=== PATIENT | female | born 1965 | race Caucasian/White ===

== ENCOUNTER 2016-09-10 12:04 | Emergency (ER) | payer MEDICAID ==
[2016-09-10 12:05] VITALS: BMI 36.4
[2016-09-10 12:16] VITALS: TEMP 97.5
--- NOTE | 2016-09-10 12:44 | C.PDOC ---
History Of Present Illness 50 y/o female presents to the ED with complaints of SOB for 2 days. Patient reports shortness of breath even at rest and worse with exacerbation. Denies chest pain, headache, dizziness, weakness, numbness, fever or any other complaints. Patient has significant PMH CAD, CABG, MIx5, DM, HTN, and anxiety. Wells Criteria for PE - Wells Criteria for Pulmonary Embolism Clinical Signs and Symptoms of DVT: No P.E is #1 Diagnosis, or Equally Likely: No Heart Rate >100: No Immobilization at least 3 days;Surgery previous 4 weeks: No Previous, objectively diagnosed PE or DVT: No Hemoptysis: No Malignancy w/treatment within 6 months, or palliative: No Total Score: 0 Time Seen by Provider: 09/10/16 12:25 Chief Complaint (Nursing): Shortness Of Breath History Per: Patient History/Exam Limitations: no limitations Onset/Duration Of Symptoms: Days Current Symptoms Are (Timing): Still Present Severity: Moderate Associated Symptoms: denies: Fever, Chills, Chest Pain Recent travel outside of the [place]: No Past Medical History Reviewed: Historical Data, Nursing Documentation, Vital Signs Vital Signs: Last Vital Signs Temp 97.5 F L 09/10/16 15:14 Pulse 55 L 09/10/16 15:14 Resp 23 09/10/16 15:14 BP 120/58 L 09/10/16 15:14 Pulse Ox 99 09/10/16 15:14 - Medical History PMH: Anxiety, Asthma, CAD, Cardia Arrhythmia, Depression, Diabetes, Gastritis, Gastrointestinal Ulcer, Gall Bladder Disease, HTN, Hypercholesterolemia, Sleep Apnea Surgical History: CABG (september 2008), Cholecystectomy, Coronary Stent (9 stents) - [facility] Procedures APPLICATION OF SPLINT (06/09/14) CORONAR ARTERIOGR-2 CATH (12/14/14) DILATION OF 1 COR ART WITH DRUG-ELUT INTRALUM, PERC APPROACH (05/26/15) DILATION OF CORONARY ARTERY, ONE SITE, PERCUTANEOUS APPROACH (03/04/16) FLUOROSCOPY OF LEFT HEART USING LOW OSMOLAR CONTRAST (05/26/15) FLUOROSCOPY OF SINGLE CORONARY ARTERY USING L OSM CONTRAST (05/26/15) INFLUENZA VACCINATION (05/08/14) LEFT HEART CARDIAC CATH (12/14/14) LT HEART ANGIOCARDIOGRAM (12/14/14) MEASURE OF CARDIAC SAMPL & PRESSURE, L HEART, PERC APPROACH (03/04/16) OTHER ENDOSCOPY OF SM INTEST (01/21/14) PLAIN RADIOGRAPHY OF LEFT HEART USING OTHER CONTRAST (03/04/16) PLAIN RADIOGRAPHY OF MULT COR ART USING OTH CONTRAST (03/04/16) TETANUS TOXOID ADMINIST (06/09/14) TRANSFUSE NONAUT RED BLOOD CELLS IN PERIPH VEIN, PERC (03/30/16) VACCINATION NEC (05/08/14) Family History: States: Unknown Family Hx - Social History Hx Tobacco Use: No Hx Alcohol Use: No Hx Substance Use: Yes (MARIJUANA) - Immunization History Hx Tetanus Toxoid Vaccination: Yes (06/09/14) Hx Influenza Vaccination: Yes Hx Pneumococcal Vaccination: Yes Review Of Systems Constitutional: Negative for: Fever, Chills Cardiovascular: Negative for: Chest Pain, Palpitations Respiratory: Positive for: Shortness of Breath. Negative for: Cough Gastrointestinal: Negative for: Vomiting, Abdominal Pain Musculoskeletal: Negative for: Neck Pain, Back Pain Neurological: Negative for: Weakness, Numbness, Headache, Dizziness Physical Exam - Physical Exam Appears: Non-toxic, No Acute Distress, Other (obese) Skin: Warm, Dry, No Rash Head: Atraumatic, Normacephalic Eye(s): bilateral: Normal Inspection, EOMI Nose: Normal Neck: Normal ROM, Supple Chest: Symmetrical Cardiovascular: Rhythm Regular, No Murmur Respiratory: Normal Breath Sounds, No Rales, No Rhonchi, No Wheezing, Other ( tachypnea) Extremity: Bilateral: Atraumatic, No Pedal Edema, Normal Color And Temperature, Normal ROM Neurological/Psych: Oriented x3, Normal Speech Gait: Steady ED Course And Treatment - Laboratory Results Result Diagrams: 09/10/16 12:59 09/10/16 12:59 Lab Interpretation: No Acute Changes ECG: Interpreted By Me, Viewed By Me (and DR RODAS) ECG Rhythm: Sinus Rhythm ECG Interpretation: No Acute Changes Interpretation Of ECG: normal axis, nonspecific ST/T wave abnormality; no change from 03/28/16 Rate From EC (BPM) O2 Sat by Pulse Oximetry: 100 (on room air) Pulse Ox Interpretation: Normal - Other Rad CXR X-Ray: Viewed By Me, Read By Radiologist Interpretation: Accession No. : [id number]. Patient Name / ID : CHARISSE HWANG / [id number]. Exam Date : 09/10/2016 12:21:27 ( Approved ). Study Comment : Sex / Age : F / 50Y. Creator : Al Broussard MD. Dictator : Al Broussard MD. Order Fulfillment Specialist : Superintendent Of Schools : Al Broussard MD. Approver2 : Report Date : 09/10/2016 13:21:56. My Comment : . HISTORY: sob. COMPARISON: No prior. TECHNIQUE: Chest PA and lateral. FINDINGS: LUNGS: Poor inspiration with low lung volumes, mild crowded bronchovascular markings and mild bibasilar atelectasis. The interstitial markings are also slightly increased and coarsened as well; rule out this concomitant sequela of reactive/inflammatory airway disease or viral illness. With discrete area of linear atelectasis and or scarring right lateral mid lung field. PLEURA: No significant pleural effusion identified. No pneumothorax apparent. CARDIOVASCULAR: Normal. OSSEOUS STRUCTURES: No significant abnormalities. VISUALIZED UPPER ABDOMEN: Normal. OTHER FINDINGS: None. IMPRESSION: Poor inspiration with low lung volumes, mild crowded bronchovascular markings and mild bibasilar atelectasis. The interstitial markings are also slightly increased and coarsened as well; rule out this concomitant sequela of reactive/ inflammatory airway disease or viral illness. Medical Decision Making Medical Decision Making: Plan: * EKG, CXR * labs, UA * IV fluids Progress: Patient assessed and examined. Orders placed in for blood work. Urine collected and sent to lab for analysis. EKG obtained and reviewed, no acute ST-T changes. Patient placed on cardiac cath tech. Oxygen given via nasal cannula. Additional orders placed for duonebs. All labs reviewed including troponin and dimer which were negative, H/H baseline. No signs of DKA. CXR read by radiologist which showed poor inspiration with low lung volumes, mild crowded bronchovascular markings and mild bibasilar atelectasis. The interstitial markings are also slightly increased and coarsened as well; rule out this concomitant sequela of reactive/ inflammatory airway disease or viral illness. I considered the following diagnoses: acute coronary syndrome, pulmonary embolism, lower respiratory infection, pneumothorax, pericarditis, esophagitis/ GERD, zoster and esophageal rupture but found them to be unlikely based on the history, physical exam, and diagnostics. My conclusions regarding the unlikely diagnoses were based on: the absence of significant EKG abnormalities, the lack of suggestive x-ray findings, the absence of significant abnormalities on cardiac monitoring, the absence of asymmetric pulses. Case was also discussed with Dr Rodas who agreed with plan. Upon reevaluation patient was resting comfortably in no acute distress and oxygen saturation was 100% on room air. Patient denies any chest pain. Symptoms likely related to anxiety. I explained all results to patient and provide copy of reports. Patient feels comfortable going home. 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 Return to the emergency department at any time if symptoms persist or worsen. Disposition Counseled Patient/Family Regarding: Studies Performed, Diagnosis, Need For Followup, Rx Given - Disposition Referrals: Leonidas Keith MD [Non-Staff] - Disposition: HOME/ ROUTINE Disposition Time: 15:00 Condition: STABLE Additional Instructions: Follow up with your primary medical doctor Dr keith in 1-3 days for further evaluation. Take medications as prescribed. Return to the emergency department at any time if symptoms persist or worsen. Prescriptions: Prednisone 50 mg PO DAILY #5 tablet Albuterol HFA [Ventolin HFA 90 mcg/actuation (8 g)] 1 puff IH Q4 #1 puff Instructions: Dyspnea (ED) - POA Present On Arrival: None - Clinical Impression Clinical Impression: Dyspnea, Anxiety - PA / REEXAMINER / Resident Statement MD/DO has reviewed & agrees with the documentation as recorded. - Scribe Statement The provider has reviewed the documentation as recorded by the Corey Vera All medical record entries made by the Corey were at my direction and personally dictated by me. I have reviewed the chart and agree that the record accurately reflects my personal performance of the history, physical exam, medical decision making, and the department course for this patient. I have also personally directed, reviewed, and agree with the discharge instructions and disposition. ULISSES Risk Score for UA/NSTEMI - ULISSES Risk Score Age > 64: NO 3 or more CAD Risk Factors: YES Known CAD (Stenosis greater than 50%): YES Aspirin use in past 7 days: NO Severe Angina: NO EKG ST changes greater than 0.5mm: NO Positive Cardiac Marker: NO ULISSES Score: 2 % risk at 14 days of: all cause mortality, new or recurrent OK, or severe recurrent ischemia requiring urgen revascularization: 8%
[2016-09-10 13:11] LABS: WHITE BLOOD COUNT 5.2 K/uL (4.8-10.8)
[2016-09-10 13:16] LABS: BASO % 0.6 % (0.0-2.0); EOS % 0.6 % (0.0-4.0); HEMATOCRIT 30.1 % (34.0-47.0); LYMPH # 1.3 K/uL (1.0-4.3); LYMPH % 24.2 % (20.0-40.0); MEAN CORPUSCULAR HEMOGLOBIN 24.8 pg (27.0-31.0); MEAN CORPUSCULAR HGB CONC 31.7 g/dL (33.0-37.0); MEAN PLATELET VOLUME 9.4 fL (7.2-11.7); MONO # 0.5 K/uL (0.0-0.8); MONO % 9.1 % (0.0-10.0); RED CELL DISTRIBUTION WIDTH 19.7 % (11.5-14.5)
[2016-09-10 13:18] LABS: MEAN CELL VOLUME 78.2 fL (81.0-99.0)
[2016-09-10 13:19] LABS: CHLORIDE 97 mmol/L (98-107); POTASSIUM 3.8 mmol/L (3.6-5.2); SODIUM 137 mmol/L (132-148)
[2016-09-10 13:21] LABS: BILIRUBIN,TOTAL 0.9 mg/dL (0.2-1.3); GFR AFRICAN-AMERICAN > 60
[2016-09-10 13:22] LABS: ALKALINE PHOSPHATASE 67 U/L (38-126); ALT/SGPT 48 U/L (9-52); AST/SGOT 34 U/L (14-36); BLOOD UREA NITROGEN 15 mg/dL (7-17); CALCIUM 8.6 mg/dl (8.6-10.4); CARBON DIOXIDE 21 mmol/L (22-30); GLUCOSE,RANDOM 308 mg/dL (65-105); TOTAL PROTEIN 7.7 g/dL (6.3-8.3)
--- NOTE | 2016-09-10 13:31 | RAD ---
HISTORY: sob COMPARISON: No prior. TECHNIQUE: Chest PA and lateral FINDINGS: LUNGS: Poor inspiration with low lung volumes, mild crowded bronchovascular markings and mild bibasilar atelectasis. The interstitial markings are also slightly increased and coarsened as well; rule out this concomitant sequela of reactive/inflammatory airway disease or viral illness. With discrete area of linear atelectasis and or scarring right lateral mid lung field PLEURA: No significant pleural effusion identified. No pneumothorax apparent. CARDIOVASCULAR: Normal. OSSEOUS STRUCTURES: No significant abnormalities. VISUALIZED UPPER ABDOMEN: Normal. OTHER FINDINGS: None. IMPRESSION: Poor inspiration with low lung volumes, mild crowded bronchovascular markings and mild bibasilar atelectasis. The interstitial markings are also slightly increased and coarsened as well; rule out this concomitant sequela of reactive/inflammatory airway disease or viral illness.
[2016-09-10 13:33] LABS: RBC URINE 13 /hpf (0-3); URINE BACTERIA RARE (<OCC); URINE BILIRUBIN NEGATIVE (NEGATIVE); URINE BLOOD 1+ (NEGATIVE); URINE COLOR Yellow (YELLOW); URINE GLUCOSE (UA) 3+ mg/dL (Normal); URINE KETONE NEGATIVE (NEGATIVE); URINE LEUKOCYTE ESTERASE TRACE Leu/uL (Negative); URINE PROTEIN NEGATIVE (NEGATIVE); URINE UROBILINOGEN NORMAL mg/dL (0.2-1.0); WBC URINE 6 /hpf (0-5)
[2016-09-10 14:09] LABS: INR 1.1; PARTIAL THROMBOPLASTIN TIME 26 SECONDS (21-34)
[2016-09-10] MEDS ORDERED: Albuterol-Ipratrop 3 mg / 0.5 (3 ml) UD IH SCH (14:30)
[2016-09-10] MEDS ORDERED: Albuterol-Ipratrop 3 mg / 0.5 (3 ml) UD ONE (14:38)
[2016-09-10 15:16] VITALS: BP 120/58; PULSE 55; RESP 23
[2016-09-10 15:40] VITALS: O2SAT 100
== END 2016-09-10 15:15 | disposition home or self-care (01) ==
LOC: C.ER 12:04
DX: F41.9 Anxiety disorder, unspecified (principal); R06.00 Dyspnea, unspecified

== ENCOUNTER 2016-11-03 10:11 | Inpatient (IN) | payer MEDICAID ==
[2016-11-03 10:11] VITALS: BMI 36.4
--- NOTE | 2016-11-03 10:37 | C.PDOC ---
History Of Present Illness Patient BIBA for evaluation of feeling light-headed, tingling of the lips, nausea, and eyelid "heaviness" since approx 8:45am. She states she walked to the bathroom, felt like it was difficult to walk in a straight line, took a melcizine but symptoms did not improve so 911 was called. She denies chest pain , SOB, visual changes, headache, sensation of room spinning around her, palpitations, facial droop, slurred speech, extremity weakness. PMHx of CAD s/ p stents and CABG, HTN, hyperlipidemia, DM, asthma, anxiety, PUD, gastritis, ESPERANZA. She states she has a "mini stroke" once before. 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 Time Seen by Provider: 11/03/16 10:27 Chief Complaint (Nursing): High Blood Sugar History Per: Patient, EMS History/Exam Limitations: no limitations Onset/Duration Of Symptoms: Hrs Current Symptoms Are (Timing): Still Present Severity: Mild Current Diabetic Medications: Insulin Past Medical History Reviewed: Historical Data, Nursing Documentation, Vital Signs Vital Signs: Last Vital Signs Temp 97.9 F 11/08/16 07:45 Pulse 107 H 11/08/16 14:41 Resp 20 11/08/16 07:45 BP 110/70 11/08/16 09:19 Pulse Ox 98 11/08/16 07:45 - Medical History PMH: Anxiety, Asthma, CAD, Cardia Arrhythmia, Depression, Diabetes, Gastritis, Gastrointestinal Ulcer, Gall Bladder Disease, HTN, Hypercholesterolemia, Chronic Kidney Disease, Sleep Apnea Surgical History: CABG (september 2008), Cholecystectomy, Coronary Stent (9 stents) - [facility] Procedures APPLICATION OF SPLINT (06/09/14) CORONAR ARTERIOGR-2 CATH (12/14/14) DILATION OF 1 COR ART WITH DRUG-ELUT INTRALUM, PERC APPROACH (05/26/15) DILATION OF CORONARY ARTERY, ONE SITE, PERCUTANEOUS APPROACH (03/04/16) FLUOROSCOPY OF LEFT HEART USING LOW OSMOLAR CONTRAST (05/26/15) FLUOROSCOPY OF SINGLE CORONARY ARTERY USING L OSM CONTRAST (05/26/15) INFLUENZA VACCINATION (05/08/14) LEFT HEART CARDIAC CATH (12/14/14) LT HEART ANGIOCARDIOGRAM (12/14/14) MEASURE OF CARDIAC SAMPL & PRESSURE, L HEART, PERC APPROACH (03/04/16) OTHER ENDOSCOPY OF SM INTEST (01/21/14) PLAIN RADIOGRAPHY OF LEFT HEART USING OTHER CONTRAST (03/04/16) PLAIN RADIOGRAPHY OF MULT COR ART USING OTH CONTRAST (03/04/16) TETANUS TOXOID ADMINIST (06/09/14) TRANSFUSE NONAUT RED BLOOD CELLS IN PERIPH VEIN, PERC (03/30/16) VACCINATION NEC (05/08/14) Family History: States: No Known Family Hx - Social History Hx Tobacco Use: No Hx Alcohol Use: No Hx Substance Use: Yes (MARIJUANA) - Immunization History Hx Tetanus Toxoid Vaccination: Yes (06/09/14) Hx Influenza Vaccination: Yes Hx Pneumococcal Vaccination: Yes Review Of Systems Except As Marked, All Systems Reviewed And Found Negative. Constitutional: Negative for: Fever, Chills Cardiovascular: Negative for: Chest Pain, Palpitations Respiratory: Negative for: Cough, Shortness of Breath Gastrointestinal: Positive for: Nausea. Negative for: Vomiting, Abdominal Pain , Diarrhea Genitourinary: Negative for: Dysuria, Hematuria Neurological: Positive for: Numbness (tingling of lips), Incoordination, Dizziness. Negative for: Weakness, Change in Speech, Confusion, Seizures, Altered Mental Status, Headache Physical Exam - Physical Exam Appears: Well, Non-toxic, Other (mildly uncomfortable) Skin: Normal Color, Warm, Dry, No Rash Head: Atraumatic, Normacephalic Eye(s): bilateral: Normal Inspection, PERRL, EOMI Oral Mucosa: Moist Neck: Normal, Normal ROM Cardiovascular: Rhythm Regular Respiratory: Normal Breath Sounds, No Rales, No Rhonchi, No Wheezing Gastrointestinal/Abdominal: Normal Exam, Bowel Sounds, Soft, No Tenderness Extremity: Normal ROM, No Pedal Edema, No Calf Tenderness Pulses: Left Dorsalis Pedis: Normal, Right Dorsalis Pedis: Normal Neurological/Psych: Oriented x3, Normal Speech, Normal Cognition, Normal Cranial Nerves, No Cerebellar Signs, Normal Motor, No Normal Sensation ( subjective tingling of lips, otherwise sensation intact), Normal Reflexes, No Dysarthria ED Course And Treatment - Laboratory Results Result Diagrams: 11/06/16 08:09 11/06/16 08:09 ECG: Interpreted By Me, Viewed By Me (sinus bradycardia 58 bpm, normal axis, no acute ST/T wave changes) O2 Sat by Pulse Oximetry: 100 (ra) Pulse Ox Interpretation: Normal - CT Scan/US CT HEAD Other Rad Studies (CT/US): Read By Radiologist, Radiology Report Reviewed CT/US Interpretation: Accession No. : [id number]. Patient Name / ID : CHARISSE BRITO / [id number]. Exam Date : 11/03/2016 11:14:36 ( Approved ). Study Comment : Sex / Age : F / 51Y. Creator : Caron Francisco MD. Dictator : Caron Francisco MD. Paper Maker : Rehabilitation Physician : Caron Francisco MD. Approver2 : Report Date : 11/03/2016 11:32:43. My Comment : . PROCEDURE: CT HEAD WITHOUT CONTRAST. HISTORY: DIZZY, LIP NUMBNESS, NAUSEA. COMPARISON: None available. TECHNIQUE: Axial computed tomography images were obtained through the head/brain without intravenous contrast. Radiation dose: Total exam DLP = 909.38 mGy-cm. This CT exam was performed using one or more of the following dose reduction techniques: Automated exposure control, adjustment of the mA and/or kV according to patient size, and/ or use of iterative reconstruction technique. FINDINGS: HEMORRHAGE: No intracranial hemorrhage. BRAIN: No mass effect or edema. Dense intracranial atherosclerotic calcifications. The burciaga-white matter differentiation appears intact. Please note that MRI with diffusion imaging is more sensitive in the detection of acute ischemic event. VENTRICLES: No hydrocephalus. CALVARIUM: Unremarkable. PARANASAL SINUSES: Unremarkable as visualized. No significant inflammatory changes. MASTOID AIR CELLS: Unremarkable as visualized. No inflammatory changes. OTHER FINDINGS: None. IMPRESSION: No acute intracranial pathology identified. Progress Note: Blood work, CT head, EKG, UA, UDS ordered and reviewed. Patient given IV zofran and IV NS bolus. PO ASA [address] head (-) for bleed. IV toradol given for pain. - Physician Consult Information Physician Contacted: Spencer Mcelroy Outcome Of Conversation: Discussed patient with Dr. Rubi Mcelroy, who agrees with telemetry admission for possible TIA. Would like Dr. Stauffer for neurology, consult entered. NIHSS Stroke Scale - Date/Time Evaluation Performed Date Performed: 11/03/16 Time Performed: 10:15 When Was NIHSS Performed: Baseline - How Severe is the Stoke Level of Consciousness: 0=Alert LOC to Questions: 0=Both comments correct LOC to commands: 0=Obeys both correctly Best Gaze: 0=Normal Visual: 0=No visual loss Facial: 0=Normal Motor Arm - Left: 0=No drift Motor Arm - Right: 0=No drift Motor Leg - Left: 0=No drift Motor Leg - Right: 0=No drift Limb Ataxia: 0=Absent Sensory: 1=Mild to moderate loss (NUMBNESS/TINGLING LIPS) Best Language: 0=No aphasia Dysarthia: 0=Normal articulation Extinction & Inattention (Neglect): 0=Normal, no object Score: 1 Severity Of Stroke: 1-4= Minor Stroke rTPA Inclusion/Exclusion - Refusal of Treatment Patient Refused Treatment: No - Inclusion Criteria for Altepase Patient is 18 years or Older: Yes The Clinical Diagnosis of Ischemic Stroke That is Causing a Potentially Disabling Neurological Deficit: No Time of Onset is Well Established to be Less Than 270 Minute Before Treatment Would Begin: Yes Risk/Benefit Discussed With Patient/Family Member Present: No Disposition - Disposition Disposition: HOSPITALIZED Disposition Time: 13:58 Condition: STABLE - Clinical Impression Clinical Impression: Lip numbness, Dizziness, TIA (transient ischemic attack), Headache Decision To Admit - Pt Status Changed To: Hospital Disposition Of: Observation - . Bed Request Type: Telemetry Admitting Physician: Spencer Mcelroy Patient Diagnosis: Lip numbness, Dizziness, TIA (transient ischemic attack), Headache
[2016-11-03 10:55] LABS: BASO % 0.6 % (0.0-2.0); EOS # 0.1 K/uL (0.0-0.7); EOS % 1.3 % (0.0-4.0); HEMATOCRIT 32.6 % (34.0-47.0); LYMPH # 1.1 K/uL (1.0-4.3); LYMPH % 20.4 % (20.0-40.0); MEAN CELL VOLUME 76.7 fL (81.0-99.0); MEAN CORPUSCULAR HEMOGLOBIN 24.6 pg (27.0-31.0); MEAN PLATELET VOLUME 9.3 fL (7.2-11.7); MONO # 0.6 K/uL (0.0-0.8); MONO % 11.2 % (0.0-10.0); NRBC % 0.1 % (0.0-2.0); RED CELL DISTRIBUTION WIDTH 17.6 % (11.5-14.5); WHITE BLOOD COUNT 5.4 K/uL (4.8-10.8)
[2016-11-03 11:06] LABS: INR 0.9
[2016-11-03 11:07] LABS: CHLORIDE 97 mmol/L (98-107); SODIUM 132 mmol/L (132-148)
[2016-11-03 11:08] LABS: POTASSIUM 4.1 mmol/L (3.6-5.2)
[2016-11-03 11:10] LABS: ALB/GLOB RATIO 1.3 (1.0-2.1); ALKALINE PHOSPHATASE 71 U/L (38-126); ALT/SGPT 38 U/L (9-52); AST/SGOT 29 U/L (14-36); BILIRUBIN,TOTAL 0.5 mg/dL (0.2-1.3); BLOOD UREA NITROGEN 18 mg/dL (7-17); CALCIUM 8.3 mg/dl (8.6-10.4); CARBON DIOXIDE 23 mmol/L (22-30); GFR AFRICAN-AMERICAN > 60; GLUCOSE,RANDOM 196 mg/dL (65-105); TOTAL PROTEIN 7.4 g/dL (6.3-8.3)
--- NOTE | 2016-11-03 11:34 | CT ---
PROCEDURE: CT HEAD WITHOUT CONTRAST. HISTORY: DIZZY, LIP NUMBNESS, NAUSEA COMPARISON: None available. TECHNIQUE: Axial computed tomography images were obtained through the head/brain without intravenous contrast. Radiation dose: Total exam DLP = 909.38 mGy-cm. This CT exam was performed using one or more of the following dose reduction techniques: Automated exposure control, adjustment of the mA and/or kV according to patient size, and/or use of iterative reconstruction technique. FINDINGS: HEMORRHAGE: No intracranial hemorrhage. BRAIN: No mass effect or edema. Dense intracranial atherosclerotic calcifications. The burciaga-white matter differentiation appears intact. Please note that MRI with diffusion imaging is more sensitive in the detection of acute ischemic event. VENTRICLES: No hydrocephalus. CALVARIUM: Unremarkable. PARANASAL SINUSES: Unremarkable as visualized. No significant inflammatory changes. MASTOID AIR CELLS: Unremarkable as visualized. No inflammatory changes. OTHER FINDINGS: None. IMPRESSION: No acute intracranial pathology identified.
[2016-11-03] MEDS ORDERED: Sodium Chloride 0.9% 1,000 ML IV ONE (11:35)
[2016-11-03] MEDS ORDERED: Sodium Chloride 0.9% 1,000 ML ONE (11:47)
[2016-11-03 13:02] LABS: RBC URINE 1 /hpf (0-3); URINE BILIRUBIN NEGATIVE (NEGATIVE); URINE BLOOD NEGATIVE (NEGATIVE); URINE COLOR Yellow (YELLOW); URINE GLUCOSE (UA) 3+ mg/dL (Normal); URINE KETONE NEGATIVE (NEGATIVE); URINE LEUKOCYTE ESTERASE TRACE Leu/uL (Negative); URINE PROTEIN NEGATIVE (NEGATIVE); URINE UROBILINOGEN NORMAL mg/dL (0.2-1.0); WBC URINE 2 /hpf (0-5)
--- NOTE | 2016-11-03 14:18 | CP.PCM.HP ---
Past Patient History - Infectious Disease Hx of Infectious Diseases: None - Past Medical History & Family History Past Medical History?: Yes - Past Social History Smoking Status: Never Smoked - CARDIAC Hx Cardia Arrhythmia: Yes Hx Hypercholesterolemia: Yes Hx Hypertension: Yes - PULMONARY Hx Asthma: Yes Hx Sleep Apnea: Yes - NEUROLOGICAL Hx Neurological Disorder: No Hx Transient Ischemic Attacks (TIA): Yes Hx Vertigo: Yes - HEENT Hx HEENT Problems: No - RENAL Hx Chronic Kidney Disease: Yes - ENDOCRINE/METABOLIC Hx Endocrine Disorders: Yes Hx Diabetes Mellitus Type 1: Yes - HEMATOLOGICAL/ONCOLOGICAL Hx Blood Disorders: Yes - INTEGUMENTARY Hx Dermatological Problems: Yes Hx Psoriasis: Yes (mild) - MUSCULOSKELETAL/RHEUMATOLOGICAL Hx Musculoskeletal Disorders: No Hx Falls: No - GASTROINTESTINAL Hx Gall Bladder Disease: Yes Hx Gastritis: Yes - GENITOURINARY/GYNECOLOGICAL Hx Genitourinary Disorders: No - PSYCHIATRIC Hx Anxiety: Yes Hx Depression: Yes Hx Substance Use: Yes (MARIJUANA) - SURGICAL HISTORY Hx Cholecystectomy: Yes Hx Coronary Artery Bypass Graft: Yes (september 2008) Hx Coronary Stent: Yes (9 stents) - ANESTHESIA Hx Anesthesia: Yes Hx Anesthesia Reactions: No Hx Malignant Hyperthermia: No Meds Allergies/Adverse Reactions: Allergies Allergy/AdvReac Type Severity Reaction Status Date / Time iodine Allergy Severe URTICARIA Verified 11/03/16 10:29 latex Allergy Severe URTICARIA Verified 11/03/16 10:29 seafood Allergy Severe URTICARIA Uncoded 03/27/16 16:33 Physical Exam - Constitutional Appears: Well - Head Exam Head Exam: ATRAUMATIC, NORMAL INSPECTION, NORMOCEPHALIC - Eye Exam Eye Exam: EOMI, Normal appearance, PERRL Pupil Exam: NORMAL ACCOMODATION, PERRL - ENT Exam ENT Exam: Mucous Membranes Moist, Normal Exam - Neck Exam Neck exam: Positive for: Normal Inspection - Respiratory Exam Respiratory Exam: Decreased Breath Sounds - Cardiovascular Exam Cardiovascular Exam: REGULAR RHYTHM, +S1, +S2 - GI/Abdominal Exam GI & Abdominal Exam: Diminished Bowel Sounds, Soft - Rectal Exam Rectal Exam: Deferred Results - Vital Signs Recent Vital Signs: Last Vital Signs Temp 98.3 F 11/03/16 10:15 Pulse 62 11/03/16 10:15 Resp 18 11/03/16 10:15 BP 120/48 L 11/03/16 10:15 Pulse Ox 100 11/03/16 13:30 - Labs Result Diagrams: 11/03/16 10:53 11/03/16 10:53 Assessment & Plan - Assessment and Plan (Free Text) Plan: asp brilinta lovenox carmen same cardio neuro pt ot lipitro carmen as ordered
[2016-11-03] MEDS: (Novolin 70/30) NPH/Regular 70/30 Units/ml 10 ml vial SC SCH (17:40)
[2016-11-03] MEDS: (Novolin R) Insulin Human Regular 100 units/ml vial SC SCH ×2 (17:41→22:00)
[2016-11-03] MEDS ORDERED: Omega-3-Acid Ethyl Esters 1 GM Cap PO SCH (18:00)
[2016-11-03] MEDS ORDERED: BRILINTA 90 MG PO SCH (18:00)
--- NOTE | 2016-11-03 19:15 | CP.PCM.CON ---
History of Present Illness - History of Present Illness History of Present Illness: 51 year old with DM, had CABG 2016 after + EST had 2 stents in Circ, EF about 50 %. multiple admissions with dizziness, CT no acute CVA on double antiplats, no CP, no arrhythEST as outptmia, observe with neuro w/u, EST as outpt Review of Systems - Review of Systems Systems not reviewed;Unavailable: Acuity of Condition - Constitutional Constitutional: Anorexia, Weakness - EENT Eyes: absent: Discharge Ears: absent: Ear Discharge, Dizziness Nose/Mouth/Throat: absent: Epistaxis - Cardiovascular Cardiovascular: absent: Acrocyanosis, Chest Pain, Diaphoresis, Palpitations, Syncope - Respiratory Respiratory: absent: Cough, Dyspnea, Hemoptysis - Gastrointestinal Gastrointestinal: absent: Abdominal Pain, Diarrhea, Vomiting - Genitourinary Genitourinary: absent: Change in Urinary Stream - Reproductive: Female Reproductive:Female: Post Menopausal - Neurological Neurological: Disequilibrium, Dizziness, Numbness Past Patient History - Infectious Disease Hx of Infectious Diseases: None - Past Medical History & Family History Past Medical History?: Yes - Past Social History Smoking Status: Never Smoked - CARDIAC Hx Cardia Arrhythmia: Yes Hx Hypercholesterolemia: Yes Hx Hypertension: Yes - PULMONARY Hx Asthma: Yes Hx Sleep Apnea: Yes - NEUROLOGICAL Hx Neurological Disorder: No Hx Transient Ischemic Attacks (TIA): Yes Hx Vertigo: Yes - HEENT Hx HEENT Problems: No - RENAL Hx Chronic Kidney Disease: Yes - ENDOCRINE/METABOLIC Hx Endocrine Disorders: Yes Hx Diabetes Mellitus Type 1: Yes - HEMATOLOGICAL/ONCOLOGICAL Hx Blood Disorders: Yes - INTEGUMENTARY Hx Dermatological Problems: Yes Hx Psoriasis: Yes (mild) - MUSCULOSKELETAL/RHEUMATOLOGICAL Hx Musculoskeletal Disorders: No Hx Falls: No - GASTROINTESTINAL Hx Gall Bladder Disease: Yes Hx Gastritis: Yes - GENITOURINARY/GYNECOLOGICAL Hx Genitourinary Disorders: No - PSYCHIATRIC Hx Anxiety: Yes Hx Depression: Yes Hx Substance Use: Yes (MARIJUANA) - SURGICAL HISTORY Hx Cholecystectomy: Yes Hx Coronary Artery Bypass Graft: Yes (september 2008) Hx Coronary Stent: Yes (9 stents) - ANESTHESIA Hx Anesthesia: Yes Hx Anesthesia Reactions: No Hx Malignant Hyperthermia: No Meds Allergies/Adverse Reactions: Allergies Allergy/AdvReac Type Severity Reaction Status Date / Time iodine Allergy Severe URTICARIA Verified 11/03/16 10:29 latex Allergy Severe URTICARIA Verified 11/03/16 10:29 seafood Allergy Severe URTICARIA Uncoded 03/27/16 16:33 - Medications Medications: Current Medications Aspirin (Ecotrin) 162 mg PO DAILY [facility] Docusate Sodium (Colace) 100 mg PO BID [facility] Last Admin: 11/03/16 17:40 Dose: 100 mg Enalapril Maleate (Vasotec) 5 mg PO DAILY [facility] Enoxaparin Sodium (Lovenox) 40 mg SC DAILY [facility] Escitalopram Oxalate (Lexapro) 10 mg PO DAILY [facility] Furosemide (Lasix) 20 mg PO DAILY [facility] Insulin Detemir (Levemir) 35 unit SC HS [facility] Insulin Human Isoph/Insulin Regular (Novolin 70/30 (70/30 Units/Ml) 10 Ml) 15 units SC TID [facility] Last Admin: 11/03/16 17:40 Dose: 15 units Insulin Human Regular (Novolin R) 0 unit SC ACHS [facility] PRN Reason: Protocol Last Admin: 11/03/16 17:41 Dose: 5 unit Multivitamins (Hexavitamin) 1 tab PO DAILY [facility] Qhkbr-2-Svvi Ethyl Esters (Lovaza) 1 gm PO DAILY [facility] Rosuvastatin Calcium (Crestor) 40 mg PO HS [facility] Ticagrelor (Brilinta) 90 mg PO BID [facility] Last Admin: 11/03/16 17:40 Dose: 90 mg Zolpidem Tartrate (Ambien) 5 mg PO HS PRN PRN Reason: Sleep Physical Exam - Constitutional Appears: Non-toxic - Head Exam Head Exam: ATRAUMATIC - Eye Exam Eye Exam: EOMI - ENT Exam ENT Exam: Mucous Membranes Moist - Neck Exam Neck exam: Negative for: Lymphadenopathy, Thyromegaly - Respiratory Exam Respiratory Exam: Clear to Auscultation Bilateral. absent: Rales - Cardiovascular Exam Cardiovascular Exam: REGULAR RHYTHM, Systolic Murmur - GI/Abdominal Exam GI & Abdominal Exam: Normal Bowel Sounds. absent: Organomegaly - Rectal Exam Rectal Exam: Deferred - Extremities Exam Extremities exam: Positive for: normal capillary refill. Negative for: calf tenderness - Neurological Exam Neurological exam: Alert, Oriented x3 - Psychiatric Exam Psychiatric exam: Anxious - Skin Skin Exam: Dry Results - Vital Signs Recent Vital Signs: Last Vital Signs Temp 98.2 F 11/03/16 15:57 Pulse 58 L 11/03/16 16:00 Resp 20 11/03/16 15:57 BP 100/61 11/03/16 15:57 Pulse Ox 99 11/03/16 15:57 - Labs Result Diagrams: 11/03/16 10:53 11/03/16 10:53 Labs: Laboratory Results - last 24 hr 11/03/16 16:17 POC Glucose (mg/dL) 354 H Assessment & Plan (1) Dizziness Status: Acute (2) Status post coronary angioplasty Status: Chronic Comment: neuro w/u (3) Diabetes type 2, uncontrolled Status: Chronic
[2016-11-03 20:13] LABS: HOMOCYSTEINE 4.5 umol/L (4.7-12.6)
[2016-11-03 20:24] LABS: FREE T4 1.39 ng/dL (0.78-2.19)
[2016-11-03 21:13] LABS: FOLATE 15.6 ng/mL
[2016-11-03] MEDS: Insulin Detemir 100 units/ml Vial (Levemir) SC SCH (21:27)
[2016-11-03 23:01] LABS: THYROID STIMULATING HORMONE 1.19 mIU/L (0.46-4.68)
[2016-11-04 08:01] LABS: CHOLESTEROL 206 mg/dL (0-199)
[2016-11-04] MEDS: (Novolin R) Insulin Human Regular 100 units/ml vial SC SCH ×4 (08:04→21:18)
[2016-11-04] MEDS: Multiple Vitamins Tab PO SCH (10:14)
[2016-11-04] MEDS: (Novolin 70/30) NPH/Regular 70/30 Units/ml 10 ml vial SC SCH ×3 (10:15→17:43)
[2016-11-04] MEDS: Enoxaparin 40 mg Syringe SC SCH (10:15)
--- NOTE | 2016-11-04 10:42 | CP.PCM.PN ---
Subjective - Date & Time of Evaluation Date of Evaluation: 11/04/16 Time of Evaluation: 15:00 - Subjective Subjective: cliniclly same Objective - Vital Signs/Intake and Output Vital Signs (last 24 hours): Temp Pulse Resp BP Pulse Ox 97.4 F L 64 18 118/75 100 11/04/16 07:05 11/04/16 07:05 11/04/16 07:05 11/04/16 10:21 11/04/16 07:05 Intake and Output: 11/04/16 11/04/16 06:59 18:59 Intake Total 120 Balance 120 - Medications Medications: Current Medications Aspirin (Ecotrin) 162 mg PO DAILY [facility] Last Admin: 11/04/16 10:12 Dose: 162 mg Docusate Sodium (Colace) 100 mg PO BID [facility] Last Admin: 11/04/16 10:14 Dose: 100 mg Enalapril Maleate (Vasotec) 5 mg PO DAILY [facility] Last Admin: 11/04/16 10:14 Dose: 5 mg Enoxaparin Sodium (Lovenox) 40 mg SC DAILY [facility] Last Admin: 11/04/16 10:15 Dose: 40 mg Escitalopram Oxalate (Lexapro) 10 mg PO DAILY [facility] Furosemide (Lasix) 20 mg PO DAILY [facility] Last Admin: 11/04/16 10:21 Dose: 20 mg Insulin Detemir (Levemir) 35 unit SC HS [facility] Last Admin: 11/03/16 21:27 Dose: 35 unit Insulin Human Isoph/Insulin Regular (Novolin 70/30 (70/30 Units/Ml) 10 Ml) 15 units SC TID [facility] Last Admin: 11/04/16 10:15 Dose: 15 units Insulin Human Regular (Novolin R) 0 unit SC ACHS [facility] PRN Reason: Protocol Last Admin: 11/04/16 08:04 Dose: 3 unit Multivitamins (Hexavitamin) 1 tab PO DAILY [facility] Last Admin: 11/04/16 10:14 Dose: 1 tab Ykntf-1-Hbes Ethyl Esters (Lovaza) 1 gm PO DAILY [facility] Rosuvastatin Calcium (Crestor) 40 mg PO HS [facility] Last Admin: 11/03/16 21:27 Dose: 40 mg Ticagrelor (Brilinta) 90 mg PO BID [facility] Last Admin: 11/03/16 17:40 Dose: 90 mg Zolpidem Tartrate (Ambien) 5 mg PO HS PRN PRN Reason: Sleep Last Admin: 11/04/16 00:10 Dose: 5 mg - Labs Labs: PT 10.7 SECONDS (9.7-12.2) 11/03/16 10:53 INR 0.9 11/03/16 10:53 APTT 26 SECONDS (21-34) 11/03/16 10:53 - Constitutional Appears: Well - Head Exam Head Exam: ATRAUMATIC, NORMAL INSPECTION, NORMOCEPHALIC - Eye Exam Eye Exam: EOMI, Normal appearance, PERRL Pupil Exam: NORMAL ACCOMODATION, PERRL - ENT Exam ENT Exam: Mucous Membranes Moist, Normal Exam - Neck Exam Neck Exam: Full ROM, Normal Inspection. absent: Lymphadenopathy - Respiratory Exam Respiratory Exam: Decreased Breath Sounds - Cardiovascular Exam Cardiovascular Exam: REGULAR RHYTHM, +S1, +S2 - GI/Abdominal Exam GI & Abdominal Exam: Soft, Diminished Bowel Sounds - Rectal Exam Rectal Exam: Deferred
[2016-11-04] MEDS: Omega-3-Acid Ethyl Esters 1 GM Cap PO SCH (12:20)
[2016-11-04 12:36] LABS: ANA TITER 1:40
--- NOTE | 2016-11-04 13:50 | MRI ---
PROCEDURE: MRA brain dated 11/04/2016 HISTORY: Left numbness. Rule out vasculitis. COMPARISON: Correlation made with concurrent MRI brain .Comparison made with CT scan brain 11/03/2016 TECHNIQUE: 3D [id number] MR angiography of the intracranial arteries was performed. Rotating maximum intensity projection images were generated. FINDINGS: Findings: Distal internal carotid arteries as well as petrous .There is however mild irregular narrowing of both cavernous carotid arteries which corresponds to previously noted at calcification of cavernous carotid segments best appreciated on prior CT scan of the brain. The supraclinoid carotid arteries are widely patent. . . There is minor asymmetry of the A1 segments left-side of which is slightly larger in caliber than right. . The middle cerebral arteries are patent. The distal branches of the anterior middle cerebral arteries are also patent and relatively symmetric. The distal vertebral arteries and basilar artery are widely patent without evidence occlusion or significant stenosis. Post cerebral arteries are also patent. No evidence of large aneurysm nor vascular malformation Impression: Narrowing of cavernous carotid arteries corresponding to atherosclerotic calcified plaque changes seen to better advantage on prior CT scan of the brain as detailed above. No evidence of occlusion nor significant stenosis of the remain intracranial circulation. No evidence of large aneurysm nor vascular malformation.
--- NOTE | 2016-11-04 13:56 | MRI ---
PROCEDURE: MRI BRAIN WITHOUT CONTRAST HISTORY: [facility]RAINE COMPARISON: Comparison made with CT scan brain 11/03/2016. TECHNIQUE: Multiplanar, multisequence MR images of the brain were obtained without intravenous contrast enhancement. FINDINGS: HEMORRHAGE: No acute parenchymal, subarachnoid or extra-axial hemorrhage. No hemosiderin deposition identified on gradient echo weighted sequence. DWI: No evidence of an acute or early subacute infarction. BRAIN PARENCHYMA: There appears be some very minimal chronic slightly confluent prolonged T2 signal changes in the periventricular white matter. There are multiple tiny focal areas of increased T2 signal seen scattered about the deep and subcortical white matter both cerebral hemispheres. Changes are nonspecific though could represent sequela of small vessel disease. Differential diagnosis would also include sequela of migraine headaches, old trauma, post infectious/ inflammatory etiologies. . Atypical presentation of a demyelinating disease process would be less likely in the absence of a pertinent clinical history however not completely excluded No obvious parenchymal nor extra-axial mass or collection identified on this noncontrast study. Ventricular and sulcal size are within range of normal this patient's stated age. VENTRICLES: No evidence of obstructive hydrocephalus. CRANIUM: Calvarium appears unremarkable. ORBITS: Orbits and contents grossly normal in appearance. PARANASAL SINUSES/MASTOIDS: No evidence of acute sinusitis within the visualized paranasal sinuses. Mastoid air complexes are clear VASCULAR SYSTEM: Visualized major vascular flow voids at skull base are patent. OTHER FINDINGS: None. IMPRESSION: No acute intracranial hemorrhage or infarct. There are minimal chronic appearing periventricular white matter changes with multiple small focal areas of increased T2 signal scattered about the deep and subcortical white matter both cerebral hemispheres. Changes are nonspecific though could represent chronic sequela of small vessel disease. Differential diagnosis would include sequela of migraine headaches, old trauma, or post infectious/inflammatory etiologies. Atypical presentation of a demyelinating disease process be less likely in the absence of a pertinent clinical history however not completely excluded.
--- NOTE | 2016-11-04 14:09 | MRI ---
PROCEDURE: MR Angiography of the neck without contrast HISTORY: ASSESS STENOSIS COMPARISON: None available. TECHNIQUE: 2D and 3D [id number] angiography of the neck was performed. Rotating maximum intensity projection images of the cervical carotid and vertebral arteries were generated. The origins of the common carotid arteries were not visualized, which is a limitation inherent to the non-contrast time of flight technique. FINDINGS: RIGHT CAROTID ARTERIES: Common Carotid Artery: Normal. Carotid Bifurcation: Normal. Internal Carotid Artery:There appears to be localized narrowing at the origin of the left common carotid artery estimated at approximately 65 %. . On carotid Doppler correlation suggested. External Carotid Artery (proximal branches): Normal. LEFT CAROTID ARTERIES: Common Carotid Artery: Normal. Carotid Bifurcation: Normal. Internal Carotid Artery:Normal. External Carotid Artery (proximal branches): Normal. VERTEBRAL ARTERIES: Right Vertebral Artery: Normal. Left Vertebral Artery: Normal. OTHER FINDINGS: None. IMPRESSION: There appears to be narrowing at the origin of the left internal carotid artery estimated at approximately 65 %. . Doppler correlation suggested. . No other significant stenosis as is identified.
--- NOTE | 2016-11-04 14:46 | VASCLAB ---
PROCEDURE: HISTORY: tia vs migraine COMPARISON: None available. TECHNIQUE: Grayscale and duplex Doppler evaluation of the cervical carotid and vertebral arteries were performed. The common carotid, carotid bifurcations and cervical Internal Carotid Artery (ICA) and proximal External Carotid Artery (ECA) were evaluated. The vertebral arteries were evaluated for gross patency and flow direction. Report prepared by Nick Barrera, BS, RVT FINDINGS: RIGHT CAROTID ARTERIES: 1. Common Carotid Artery: No significant focal plaque formation of the right common carotid artery. Maximum Peak Systolic velocity: 112 cm/sec: End-diastolic velocity 27 cm/sec. 2. Carotid Bifurcation: Calcific plaque formation. Maximum Peak Systolic velocity: 107 cm/sec: End-diastolic velocity 24 cm/sec. 3. Internal Carotid Artery: Moderate plaque formation of the right proximal ICA which dose not results in hemodynamically significant stenosis. Plaque description: Calcific 3.1. Proximal Segment: Peak systolic velocity 115 cm/sec: End-diastolic velocity 25 cm/sec - % stenosis 0-15% 3.2. Middle Segment: Peak systolic velocity 118 cm/sec: End-diastolic velocity 24 cm/sec - % stenosis 0-15% 3.3. Distal Segment: Peak systolic velocity 112 cm/sec: End-diastolic velocity 27 cm/sec - % stenosis 0-15% 4. External Carotid Artery: No significant focal plaque formation. Peak systolic velocity 96 cm/sec 5. ICA/CCA Ratio: 1.1 LEFT CAROTID ARTERIES: 1. Common Carotid Artery: No significant focal plaque formation of the left common carotid artery. Maximum Peak Systolic velocity: 109 cm/sec: End-diastolic velocity 29 cm/sec. 2. Carotid Bifurcation: Calcific plaque formation. Maximum Peak Systolic velocity: 79 cm/sec: End-diastolic velocity 21 cm/sec. 3. Internal Carotid Artery: Severe plaque formation of the left proximal ICA which results in a hemodynamically significant stenosis. Plaque description: Calcific 3.1. Proximal Segment: Peak systolic velocity 202 cm/sec: End-diastolic velocity 50 cm/sec - % stenosis 60-70% 3.2. Middle Segment: Peak systolic velocity 103 cm/sec: End-diastolic velocity 32 cm/sec - % stenosis 0-15% 3.3. Distal Segment: Peak systolic velocity 103 cm/sec: End-diastolic velocity 32 cm/sec - % stenosis 0-15% 4. External Carotid Artery: No significant focal plaque formation. Peak systolic velocity 87 cm/sec 5. ICA/CCA Ratio: 1.9 VERTEBRAL ARTERIES: 1. Right Vertebral Artery: The right vertebral artery flow direction is antegrade. 2. Left Vertebral Artery: The left vertebral artery flow direction is antegrade. OTHER FINDINGS: 1. Right Brachial Blood pressure: 148 mmHg. 2. Left Brachial Blood pressure: 142 mmHg. IMPRESSION: RIGHT: Duplex scan does not suggest hemodynamically significant stenosis of the right extracranial carotid arteries. LEFT: 60-70% stenosis of the left proximal ICA with moderate hemodynamic significance.
--- NOTE | 2016-11-04 17:05 | CP.PCM.CON ---
History of Present Illness - History of Present Illness History of Present Illness: I see patient on my list today. Patient well known to me from my outpatient practice. no call was placed to me or my service. 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 Patient will continue with current inpatient team. I will resume care of the patient as an outpatient. Past Patient History - Infectious Disease Hx of Infectious Diseases: None - Past Medical History & Family History Past Medical History?: Yes - Past Social History Smoking Status: Never Smoked - CARDIAC Hx Cardia Arrhythmia: Yes Hx Hypercholesterolemia: Yes Hx Hypertension: Yes - PULMONARY Hx Asthma: Yes Hx Sleep Apnea: Yes - NEUROLOGICAL Hx Neurological Disorder: No Hx Transient Ischemic Attacks (TIA): Yes Hx Vertigo: Yes - HEENT Hx HEENT Problems: No - RENAL Hx Chronic Kidney Disease: Yes - ENDOCRINE/METABOLIC Hx Endocrine Disorders: Yes Hx Diabetes Mellitus Type 1: Yes - HEMATOLOGICAL/ONCOLOGICAL Hx Blood Disorders: Yes - INTEGUMENTARY Hx Dermatological Problems: Yes Hx Psoriasis: Yes (mild) - MUSCULOSKELETAL/RHEUMATOLOGICAL Hx Musculoskeletal Disorders: No Hx Falls: No - GASTROINTESTINAL Hx Gall Bladder Disease: Yes Hx Gastritis: Yes - GENITOURINARY/GYNECOLOGICAL Hx Genitourinary Disorders: No - PSYCHIATRIC Hx Anxiety: Yes Hx Depression: Yes Hx Substance Use: Yes (MARIJUANA) - SURGICAL HISTORY Hx Cholecystectomy: Yes Hx Coronary Artery Bypass Graft: Yes (september 2008) Hx Coronary Stent: Yes (9 stents) - ANESTHESIA Hx Anesthesia: Yes Hx Anesthesia Reactions: No Hx Malignant Hyperthermia: No Meds Allergies/Adverse Reactions: Allergies Allergy/AdvReac Type Severity Reaction Status Date / Time iodine Allergy Severe URTICARIA Verified 11/03/16 10:29 latex Allergy Severe URTICARIA Verified 11/03/16 10:29 seafood Allergy Severe URTICARIA Uncoded 03/27/16 16:33 - Medications Medications: Current Medications Aspirin (Ecotrin) 162 mg PO DAILY [facility] Last Admin: 11/04/16 10:12 Dose: 162 mg Docusate Sodium (Colace) 100 mg PO BID [facility] Last Admin: 11/04/16 10:14 Dose: 100 mg Enalapril Maleate (Vasotec) 5 mg PO DAILY [facility] Last Admin: 11/04/16 10:14 Dose: 5 mg Enoxaparin Sodium (Lovenox) 40 mg SC DAILY [facility] Last Admin: 11/04/16 10:15 Dose: 40 mg Escitalopram Oxalate (Lexapro) 10 mg PO DAILY [facility] Last Admin: 11/04/16 12:21 Dose: 10 mg Furosemide (Lasix) 20 mg PO DAILY [facility] Last Admin: 11/04/16 10:21 Dose: 20 mg Insulin Detemir (Levemir) 35 unit SC HS [facility] Last Admin: 11/03/16 21:27 Dose: 35 unit Insulin Human Isoph/Insulin Regular (Novolin 70/30 (70/30 Units/Ml) 10 Ml) 15 units SC TID [facility] Last Admin: 11/04/16 14:15 Dose: 15 units Insulin Human Regular (Novolin R) 0 unit SC ACHS [facility] PRN Reason: Protocol Last Admin: 11/04/16 11:30 Dose: Not Given Multivitamins (Hexavitamin) 1 tab PO DAILY [facility] Last Admin: 11/04/16 10:14 Dose: 1 tab [id number] Ethyl Esters (Lovaza) 1 gm PO DAILY [facility] Last Admin: 11/04/16 12:20 Dose: 1 gm Rosuvastatin Calcium (Crestor) 40 mg PO HS [facility] Last Admin: 11/03/16 21:27 Dose: 40 mg Ticagrelor (Brilinta) 90 mg PO BID [facility] Last Admin: 11/04/16 12:20 Dose: 90 mg Zolpidem Tartrate (Ambien) 5 mg PO HS PRN PRN Reason: Sleep Last Admin: 11/04/16 00:10 Dose: 5 mg Results - Vital Signs Recent Vital Signs: Last Vital Signs Temp 97.9 F 11/04/16 16:26 Pulse 67 11/04/16 16:26 Resp 20 11/04/16 16:26 BP 125/65 11/04/16 16:26 Pulse Ox 97 11/04/16 16:26 - Labs Result Diagrams: 11/03/16 10:53 11/03/16 10:53 Labs: Laboratory Results - last 24 hr 11/03/16 11/03/16 11/03/16 19:44 19:44 19:44 ESR 51 H POC Glucose (mg/dL) C-React Prot High Sens 7.88 H Triglycerides Cholesterol LDL Cholesterol Direct HDL Cholesterol Vitamin B12 779 Folate 15.6 Homocysteine 4.5 L Free T4 1.39 TSH 3rd Generation 1.19 Rheum Arthritis Panel REBA 6 Profile REBA Titer REBA Pattern 05/11/04/16 11/04/16 21:20 06:24 07:32 ESR POC Glucose (mg/dL) 235 H 251 H C-React Prot High Sens Triglycerides Cholesterol LDL Cholesterol Direct HDL Cholesterol Vitamin B12 Folate Homocysteine Free T4 TSH 3rd Generation Rheum Arthritis Panel Negative REBA 6 Profile Positive H REBA Titer 1:40 H REBA Pattern Speckled H 11/04/16 11/04/16 07:32 16:42 ESR POC Glucose (mg/dL) 277 H C-React Prot High Sens Triglycerides 157 H Cholesterol 206 H LDL Cholesterol Direct 125 HDL Cholesterol 44 Vitamin B12 Folate Homocysteine Free T4 TSH 3rd Generation Rheum Arthritis Panel REBA 6 Profile REBA Titer REBA Pattern
[2016-11-04 17:52] LABS: RAPID PLASMA REAGIN NONREACTIVE (NONREACTIVE)
--- NOTE | 2016-11-04 21:19 | CON ---
DATE: 11/04/2016 REASON FOR CONSULTATION: Possible transient ischemic attack. CHIEF COMPLAINT: The patient was brought into [facility] with a history of lightheadedness, tingling, numbness around her mouth, losing balance and speech impairment. From neurological point of view, I was called in to evaluate her for further management. HISTORY OF PRESENT ILLNESS: The patient is a 51-year-old right-handed moderately obese female presenting with abrupt onset of tingling, numbness around her mouth, burning of the head, shaking hands, impaired speech and losing her balance. The whole symptoms lasted until she comes to the hospital. She claims also she had a similar episode; it happened 6 months ago, being admitted to [facility] and she was told a mini stroke and being treated. This episode not associating with any warning. No jerky movements, no loss of consciousness, bowel or bladder incontinence. At present, she denies headache. No visual or bulbar dysfunction, no focal weakness. PAST MEDICAL HISTORY:coronary artery disease, cardiac arrhythmia, depression, diabetes, gastritis, gastroesophageal reflux disease, gallbladder disease, hypertension, dyslipidemia, chronic kidney disease, sleep apnea, status post cholecystectomy, coronary stent, and coronary artery bypass surgery in 2008. MEDICATIONS: Zolpidem, Brilinta, Colace, Crestor, Ecotrin, vitamins, Lasix, Levemir, Lexapro, Lovaza, Lovenox, insulin, Novolin, Tylenol and Vasotec. REVIEW OF SYSTEMS: As per H and P. PERSONAL HISTORY: Denies smoking or alcohol use. PHYSICAL EXAMINATION: VITAL SIGNS: Blood pressure 101/61, mean arterial pressure 72, respiratory rate 16, temperature 97.9 with a pulse rate 65 regular. NECK: Supple. No carotid bruit. HEART: Sounds systolic murmur. EXTREMITIES: No edema in legs. NEUROLOGIC EXAMINATION: MENTAL STATUS EXAMINATION: She is awake, alert, oriented to person, place, and time. Speech is clear. Naming, repetition, fluency, comprehension all within normal. CRANIAL NERVE EXAMINATION: Visual field intact. Pupils react to light. Extraocular movements are normal. No nystagmus, no facial sensory deficit, no facial asymmetry. Hearing is normal. Tongue is midline. Good gag. MOTOR: Outstretched hand with eyes closed, no drift noted. Power is symmetric on either side. DEEP TENDON REFLEXES: Biceps, brachioradialis, triceps 2+. Both knees are 1+. Both ankles are absent. Plantars are downgoing. However, the right side is equal, good response noted. COORDINATION: Qzsqxv-rilo-lgcwvs test is intact. GAIT: Normal. CONCLUSION: Upon reviewing her history and neurological examination, the patient presenting with possible posterior cerebral artery ischemic process, which is resolved at present. However, this problem could be related to postictal phenomena . WORKUP: CT of the head reviewed by me, no acute pathologies noted. EKG normal sinus rhythm. BLOOD WORKUP: WBC 5.4, hemoglobin 10.5, hematocrit 32.6, platelet 201. PT 10.7 , INR 0.9, PTT 26. Sodium 132, potassium 4.1, chloride 97, bicarbonate 23, BUN 18, creatinine 0.6. GFR more than 60, glucose 251, calcium 8.3. . RECOMMENDATIONS: 1. MRI of the brain, MR angiogram of the neck, as well as the head to rule out ischemic process secondary to stenosis versus vasculitis. 2. Blood workup as per the order. 3. Carotid Doppler, echocardiogram and EEG to be done. Medication north, I think she is already covered for stroke prophylaxis. She should be continuing the present medication. Weight reduction, diabetic control, as well as hidden sleep apnea should be tested and to be treated appropriately. The patient will be followed closely with you. James Stauffer MD cc: [id number] TT: 11/04/2016 21:18:41 Confirmation # [id number] Dictation # [id number] melva CAMPBELL
[2016-11-04] MEDS: Insulin Detemir 100 units/ml Vial (Levemir) SC SCH (21:29)
--- NOTE | 2016-11-04 21:55 | EEG ---
DATE: 11/04/2016 The resting electroencephalogram consists of low amplitude diffuse high beta activity superimposed wi th at times alpha activities seen at parietal and occipital leads. Anteriorly fast activity superimp osed with 2-3 Hz delta activity seen at frontal and central leads. There is a diffuse 2-3 Hz delta a ctivity seen, which is consistent with early drowsiness. The photic stimulation did not evoke drivin g response noted at 2-20 Hz. IMPRESSION: This is an abnormal electroencephalogram because of diffuse fast beta activities conside ring drug effect. However, during the study neither electroencephalographic paroxysmal activities no r focal slowing noted. James Stauffer MD cc: [id number] TT: 11/04/2016 21:54:55 Confirmation # [id number] Dictation # [id number] melva
--- NOTE | 2016-11-04 23:37 | CARD ---
APPROVED REPORT EXAM: Two-dimensional and M-mode echocardiogram with Doppler and color Doppler. Other Information Quality : LimitedRhythm : NSR INDICATION Abnormal EKG/Arrhythmia RISK FACTORS Hypertension Hyperlipidemia Diabetes M-Mode DIMENSIONS RVDd1.21 (2.1-3.2cm)Left Atrium (MM)4.14 (2.5-4.0cm) IVSd1.09 (0.7-1.1cm)Aortic Root2.97 (2.2-3.7cm) LVDd5.12 (4.0-5.6cm)Aortic Cusp Exc.1.87 (1.5-2.0cm) PWd1.09 (0.7-1.1cm)FS (%) 33 % LVDs3.44 (2.0-3.8cm)LVEF (%)61 (>50%) Aortic Valve AoV Peak Pgvnrgol364.0cm/Norberto Peak GR.6mmHg Mitral Valve MV E Ujxhlsjn025.1cm/sMV A Iirmyyva63.5cm/sE/A ratio1.7 TDI E/Lateral E'0.0E/Medial E'0.0 Tricuspid Valve TR Peak Jbpnpoac831xt/sTR Peak Gr.50udAtNDMI89mlBn LEFT VENTRICLE The left ventricle is normal size. There is borderline concentric left ventricular hypertrophy. Left ventricle systolic function is normal. The Ejection Fraction is 55-60%. There is normal LV segmental wall motion. The left ventricular diastolic function is normal. There is no ventricular septal defect visualized. RIGHT VENTRICLE The right ventricle is normal size. The right ventricular systolic function is normal. ATRIA The left atrium is mildly dilated. The right atrium size is normal. AORTIC VALVE The aortic valve is not well visualized. The aortic valve is mildly sclerotic. The aortic valve is tri-cuspid. No aortic regurgitation is present. There is no aortic valvular stenosis. MITRAL VALVE The mitral valve is normal in structure. There is no evidence of mitral valve prolapse. There is no mitral valve regurgitation noted. TRICUSPID VALVE The tricuspid valve is normal in structure. There is trace tricuspid regurgitation. Right ventricular systolic pressure is estimated at less than 30 mmHg. There is no pulmonary hypertension. PULMONIC VALVE The pulmonic valve is not well visualized. There is no pulmonic valvular regurgitation. GREAT VESSELS The IVC is normal in size and collapses >50% with inspiration. PERICARDIAL EFFUSION There is no pericardial effusion. <Conclusion> There is borderline concentric left ventricular hypertrophy. Left ventricle systolic function is normal. The Ejection Fraction is 55-60%. The left ventricular diastolic function is normal. Suboptimal. poor window
[2016-11-05 21:04] LABS: BLOOD UREA NITROGEN 17 mg/dL (7-17); CALCIUM 8.7 mg/dl (8.6-10.4); CARBON DIOXIDE 24 mmol/L (22-30); CHLORIDE 96 mmol/L (98-107); GFR AFRICAN-AMERICAN > 60; GLUCOSE,RANDOM 280 mg/dL (65-105); POTASSIUM 3.9 mmol/L (3.6-5.2); SODIUM 132 mmol/L (132-148)
[2016-11-05 21:37] LABS: BASO % 0.5 % (0.0-2.0); EOS # 0.1 K/uL (0.0-0.7); EOS % 1.3 % (0.0-4.0); HEMATOCRIT 35.3 % (34.0-47.0); LYMPH % 20.9 % (20.0-40.0); MEAN CELL VOLUME 76.4 fL (81.0-99.0); MEAN CORPUSCULAR HEMOGLOBIN 23.8 pg (27.0-31.0); MEAN CORPUSCULAR HGB CONC 31.1 g/dL (33.0-37.0); MONO # 0.6 K/uL (0.0-0.8); MONO % 11.1 % (0.0-10.0); NRBC % 0.1 % (0.0-2.0); RED CELL DISTRIBUTION WIDTH 17.8 % (11.5-14.5)
[2016-11-05] MEDS: Insulin Detemir 100 units/ml Vial (Levemir) SC SCH (22:25)
[2016-11-05] MEDS: (Novolin R) Insulin Human Regular 100 units/ml vial SC SCH (22:26)
--- NOTE | 2016-11-05 22:33 | CP.PCM.PN ---
Objective - Vital Signs/Intake and Output Vital Signs (last 24 hours): Temp Pulse Resp BP Pulse Ox 97.9 F 73 20 107/67 100 11/05/16 15:00 11/05/16 15:00 11/05/16 15:00 11/05/16 15:00 11/05/16 15:00 - Medications Medications: Current Medications Acetaminophen (Tylenol 325mg Tab) 650 mg PO Q6 PRN PRN Reason: Headache Last Admin: 11/04/16 17:42 Dose: 650 mg Aspirin (Ecotrin) 162 mg PO DAILY [facility] Last Admin: 11/04/16 10:12 Dose: 162 mg Docusate Sodium (Colace) 100 mg PO BID [facility] Last Admin: 11/04/16 17:42 Dose: 100 mg Enalapril Maleate (Vasotec) 5 mg PO DAILY [facility] Last Admin: 11/04/16 10:14 Dose: 5 mg Enoxaparin Sodium (Lovenox) 40 mg SC DAILY [facility] Last Admin: 11/04/16 10:15 Dose: 40 mg Escitalopram Oxalate (Lexapro) 10 mg PO DAILY [facility] Last Admin: 11/04/16 12:21 Dose: 10 mg Furosemide (Lasix) 20 mg PO DAILY [facility] Last Admin: 11/04/16 10:21 Dose: 20 mg Insulin Detemir (Levemir) 35 unit SC HS [facility] Last Admin: 11/05/16 22:25 Dose: 35 unit Insulin Human Isoph/Insulin Regular (Novolin 70/30 (70/30 Units/Ml) 10 Ml) 15 units SC TID [facility] Last Admin: 11/04/16 17:43 Dose: 15 units Insulin Human Regular (Novolin R) 0 unit SC ACHS [facility] PRN Reason: Protocol Last Admin: 11/05/16 22:26 Dose: Not Given Multivitamins (Hexavitamin) 1 tab PO DAILY [facility] Last Admin: 11/04/16 10:14 Dose: 1 tab Nllcw-4-Cztr Ethyl Esters (Lovaza) 1 gm PO DAILY [facility] Last Admin: 11/04/16 12:20 Dose: 1 gm Rosuvastatin Calcium (Crestor) 40 mg PO HS [facility] Last Admin: 11/05/16 22:25 Dose: 40 mg Ticagrelor (Brilinta) 90 mg PO BID [facility] Last Admin: 11/04/16 17:42 Dose: 90 mg Zolpidem Tartrate (Ambien) 5 mg PO HS PRN PRN Reason: Sleep Last Admin: 11/04/16 00:10 Dose: 5 mg - Labs Labs: 11/05/16 19:32 11/05/16 19:32 PT 10.7 SECONDS (9.7-12.2) 11/03/16 10:53 INR 0.9 11/03/16 10:53 APTT 26 SECONDS (21-34) 11/03/16 10:53
[2016-11-06 08:42] LABS: BASO % 0.7 % (0.0-2.0); EOS # 0.1 K/uL (0.0-0.7); EOS % 1.2 % (0.0-4.0); HEMATOCRIT 35.5 % (34.0-47.0); LYMPH # 1.5 K/uL (1.0-4.3); LYMPH % 29.8 % (20.0-40.0); MEAN CORPUSCULAR HEMOGLOBIN 24.5 pg (27.0-31.0); MEAN CORPUSCULAR HGB CONC 31.8 g/dL (33.0-37.0); MEAN PLATELET VOLUME 9.7 fL (7.2-11.7); MONO # 0.6 K/uL (0.0-0.8); MONO % 12.1 % (0.0-10.0); NRBC % 0.1 % (0.0-2.0); RED CELL DISTRIBUTION WIDTH 18.1 % (11.5-14.5)
[2016-11-06 08:59] LABS: CHLORIDE 98 mmol/L (98-107); POTASSIUM 3.7 mmol/L (3.6-5.2); SODIUM 136 mmol/L (132-148)
[2016-11-06 09:02] LABS: CARBON DIOXIDE 26 mmol/L (22-30); GFR AFRICAN-AMERICAN > 60
[2016-11-06 09:03] LABS: BLOOD UREA NITROGEN 16 mg/dL (7-17); CALCIUM 8.8 mg/dl (8.6-10.4); GLUCOSE,RANDOM 124 mg/dL (65-105)
[2016-11-06] MEDS: Omega-3-Acid Ethyl Esters 1 GM Cap PO SCH (09:12)
[2016-11-06] MEDS: Multiple Vitamins Tab PO SCH (09:13)
[2016-11-06] MEDS: Enoxaparin 40 mg Syringe SC SCH (09:14)
[2016-11-06] MEDS: (Novolin 70/30) NPH/Regular 70/30 Units/ml 10 ml vial SC SCH ×3 (09:15→18:09)
[2016-11-06] MEDS: (Novolin R) Insulin Human Regular 100 units/ml vial SC SCH ×4 (09:16→22:19)
--- NOTE | 2016-11-06 18:01 | CP.PCM.PN ---
Subjective - Date & Time of Evaluation Date of Evaluation: 11/06/16 Time of Evaluation: 12:00 - Subjective Subjective: clinically same Objective - Vital Signs/Intake and Output Vital Signs (last 24 hours): Temp Pulse Resp BP Pulse Ox 98.1 F 86 20 106/67 99 11/06/16 15:05 11/06/16 16:02 11/06/16 15:05 11/06/16 15:05 11/06/16 15:05 - Medications Medications: Current Medications Acetaminophen (Tylenol 325mg Tab) 650 mg PO Q6 PRN PRN Reason: Headache Last Admin: 11/04/16 17:42 Dose: 650 mg Aspirin (Ecotrin) 162 mg PO DAILY [facility] Last Admin: 11/06/16 09:13 Dose: 162 mg Docusate Sodium (Colace) 100 mg PO BID [facility] Last Admin: 11/06/16 09:14 Dose: 100 mg Enalapril Maleate (Vasotec) 5 mg PO DAILY [facility] Last Admin: 11/06/16 09:13 Dose: 5 mg Enoxaparin Sodium (Lovenox) 40 mg SC DAILY [facility] Last Admin: 11/06/16 09:14 Dose: 40 mg Escitalopram Oxalate (Lexapro) 10 mg PO DAILY [facility] Last Admin: 11/06/16 09:12 Dose: 10 mg Furosemide (Lasix) 20 mg PO DAILY [facility] Last Admin: 11/06/16 09:14 Dose: 20 mg Insulin Detemir (Levemir) 35 unit SC HS [facility] Last Admin: 11/05/16 22:25 Dose: 35 unit Insulin Human Isoph/Insulin Regular (Novolin 70/30 (70/30 Units/Ml) 10 Ml) 15 units SC TID [facility] Last Admin: 11/06/16 15:13 Dose: Not Given Insulin Human Regular (Novolin R) 0 unit SC ACHS [facility] PRN Reason: Protocol Last Admin: 11/06/16 12:35 Dose: 5 unit Multivitamins (Hexavitamin) 1 tab PO DAILY [facility] Last Admin: 11/06/16 09:13 Dose: 1 tab Nrnut-7-Ypui Ethyl Esters (Lovaza) 1 gm PO DAILY [facility] Last Admin: 11/06/16 09:12 Dose: 1 gm Rosuvastatin Calcium (Crestor) 40 mg PO HS [facility] Last Admin: 11/05/16 22:25 Dose: 40 mg Ticagrelor (Brilinta) 90 mg PO BID [facility] Last Admin: 11/06/16 09:12 Dose: 90 mg Zolpidem Tartrate (Ambien) 5 mg PO HS PRN PRN Reason: Sleep Last Admin: 11/04/16 00:10 Dose: 5 mg - Labs Labs: PT 10.7 SECONDS (9.7-12.2) 11/03/16 10:53 INR 0.9 11/03/16 10:53 APTT 26 SECONDS (21-34) 11/03/16 10:53 - Constitutional Appears: Well - Head Exam Head Exam: ATRAUMATIC, NORMAL INSPECTION, NORMOCEPHALIC - Eye Exam Eye Exam: EOMI, Normal appearance, PERRL Pupil Exam: NORMAL ACCOMODATION, PERRL - ENT Exam ENT Exam: Mucous Membranes Moist, Normal Exam - Neck Exam Neck Exam: Full ROM, Normal Inspection. absent: Lymphadenopathy - Respiratory Exam Respiratory Exam: Decreased Breath Sounds - Cardiovascular Exam Cardiovascular Exam: REGULAR RHYTHM, +S1, +S2 - GI/Abdominal Exam GI & Abdominal Exam: Soft, Diminished Bowel Sounds - Rectal Exam Rectal Exam: Deferred
[2016-11-06] MEDS: Insulin Detemir 100 units/ml Vial (Levemir) SC SCH (22:19)
[2016-11-07] MEDS: (Novolin R) Insulin Human Regular 100 units/ml vial SC SCH ×4 (07:40→22:16)
[2016-11-07] MEDS: (Novolin 70/30) NPH/Regular 70/30 Units/ml 10 ml vial SC SCH ×3 (09:49→18:28)
[2016-11-07] MEDS: Omega-3-Acid Ethyl Esters 1 GM Cap PO SCH (09:52)
[2016-11-07] MEDS: Enoxaparin 40 mg Syringe SC SCH (09:52)
[2016-11-07] MEDS: Multiple Vitamins Tab PO SCH (09:53)
[2016-11-07 12:26] LABS: PHOSPHATIDYLSERINE AB IGM <25 U/mL (<25)
--- NOTE | 2016-11-07 12:56 | CP.PCM.PN ---
Subjective - Date & Time of Evaluation Date of Evaluation: 11/07/16 Time of Evaluation: 09:20 - Subjective Subjective: clinically same Objective - Vital Signs/Intake and Output Vital Signs (last 24 hours): Temp Pulse Resp BP Pulse Ox 98.0 F 91 H 18 104/70 98 11/07/16 07:25 11/07/16 12:09 11/07/16 07:25 11/07/16 09:51 11/07/16 07:25 Intake and Output: 11/07/16 11/07/16 06:59 18:59 Intake Total 150 Balance 150 - Medications Medications: Current Medications Acetaminophen (Tylenol 325mg Tab) 650 mg PO Q6 PRN PRN Reason: Headache Last Admin: 11/04/16 17:42 Dose: 650 mg Aspirin (Ecotrin) 162 mg PO DAILY [facility] Last Admin: 11/07/16 09:51 Dose: 162 mg Docusate Sodium (Colace) 100 mg PO BID [facility] Last Admin: 11/07/16 09:50 Dose: 100 mg Enalapril Maleate (Vasotec) 5 mg PO DAILY [facility] Last Admin: 11/07/16 09:50 Dose: 5 mg Enoxaparin Sodium (Lovenox) 40 mg SC DAILY [facility] Last Admin: 11/07/16 09:52 Dose: 40 mg Escitalopram Oxalate (Lexapro) 10 mg PO DAILY [facility] Last Admin: 11/07/16 09:53 Dose: 10 mg Furosemide (Lasix) 20 mg PO DAILY [facility] Last Admin: 11/07/16 09:51 Dose: 20 mg Insulin Detemir (Levemir) 35 unit SC HS [facility] Last Admin: 11/06/16 22:19 Dose: 35 unit Insulin Human Isoph/Insulin Regular (Novolin 70/30 (70/30 Units/Ml) 10 Ml) 15 units SC TID [facility] Last Admin: 11/07/16 09:49 Dose: 15 units Insulin Human Regular (Novolin R) 0 unit SC ACHS [facility] PRN Reason: Protocol Last Admin: 11/07/16 12:03 Dose: 6 unit Multivitamins (Hexavitamin) 1 tab PO DAILY [facility] Last Admin: 11/07/16 09:53 Dose: 1 tab Cykmu-3-Krsq Ethyl Esters (Lovaza) 1 gm PO DAILY [facility] Last Admin: 11/07/16 09:52 Dose: 1 gm Rosuvastatin Calcium (Crestor) 40 mg PO HS [facility] Last Admin: 11/06/16 22:19 Dose: 40 mg Ticagrelor (Brilinta) 90 mg PO BID [facility] Last Admin: 11/07/16 09:52 Dose: 90 mg Zolpidem Tartrate (Ambien) 5 mg PO HS PRN PRN Reason: Sleep Last Admin: 11/06/16 22:19 Dose: 5 mg - Labs Labs: PT 10.7 SECONDS (9.7-12.2) 11/03/16 10:53 INR 0.9 11/03/16 10:53 APTT 26 SECONDS (21-34) 11/03/16 10:53 - Constitutional Appears: Well - Head Exam Head Exam: ATRAUMATIC, NORMAL INSPECTION, NORMOCEPHALIC - Eye Exam Eye Exam: EOMI, Normal appearance, PERRL Pupil Exam: NORMAL ACCOMODATION, PERRL - ENT Exam ENT Exam: Mucous Membranes Moist, Normal Exam - Neck Exam Neck Exam: Full ROM, Normal Inspection. absent: Lymphadenopathy - Respiratory Exam Respiratory Exam: Decreased Breath Sounds - Cardiovascular Exam Cardiovascular Exam: REGULAR RHYTHM, +S1, +S2 - GI/Abdominal Exam GI & Abdominal Exam: Soft, Diminished Bowel Sounds - Rectal Exam Rectal Exam: Deferred
[2016-11-07 14:44] LABS: B2 GLYCOPROTEIN I AB(IGA) <9 SAU (<=20); B2 GLYCOPROTEIN I AB(IGG) <9 SGU (<=20); B2 GLYCOPROTEIN I AB(IGM) <9 SMU (<=20)
[2016-11-07] MEDS: Insulin Detemir 100 units/ml Vial (Levemir) SC SCH (22:16)
[2016-11-08] MEDS: (Novolin R) Insulin Human Regular 100 units/ml vial SC SCH ×3 (07:50→18:25)
[2016-11-08] MEDS: (Novolin 70/30) NPH/Regular 70/30 Units/ml 10 ml vial SC SCH ×3 (09:17→18:24)
[2016-11-08] MEDS: Enoxaparin 40 mg Syringe SC SCH (09:18)
[2016-11-08] MEDS: Omega-3-Acid Ethyl Esters 1 GM Cap PO SCH (09:21)
[2016-11-08] MEDS: Multiple Vitamins Tab PO SCH (09:25)
[2016-11-08 14:53] LABS: CARDIOLIPIN AB (IGA) <11 APL (<=11); PHOSPHATIDYLSERINE AB IGA <20 U/mL (<20)
--- NOTE | 2016-11-08 18:16 | CARD ---
APPROVED REPORT EKG Measurement Heart [id number] <Conclusion> Sinus bradycardia ST & T wave abnormality, consider lateral ischemia Abnormal ECG
[2016-11-08] MEDS: Insulin Detemir 100 units/ml Vial (Levemir) SC SCH (22:31)
[2016-11-09] MEDS: (Novolin R) Insulin Human Regular 100 units/ml vial SC SCH ×3 (08:05→11:39)
--- NOTE | 2016-11-09 09:08 | PN ---
DATE: 11/09/2016 NEUROLOGICAL PROBLEM: Transient ischemic attack in posterior cerebral artery distribution. PHYSICAL EXAMINATION: VITAL SIGNS: Blood pressure 123/73, mean arterial pressure of 89, respiratory rate 16, temperature 98.1 degrees Fahrenheit, pulse rate 79 NEUROLOGIC: The patient is stable neurologically. The patient recovered from the day she was admitted. No clear evidence of ischemic process related to her problem. The rest of the examination is normal as stated in the previous examination. WORKUP: Her carotid Doppler left showed 60-70% stenosis in the left proximal ICA, and right side no stenosis. MRI of the brain showed multiple T2 signal periventricular ischemic changes noted. No acute ischemic process. MRA of the neck showed a left internal carotid artery approximately 65 percentage of occlusion. The patient had been on dual antiplatelets for her coronary artery disease. That would be enough to cover prevention for her neurological problem of ischemic process. The patient does not need any further workup. The patient should have a followup carotid Doppler 3-6 months, depending on her clinical presentation. James Stauffer MD cc: [id number] TT: 11/09/2016 08:05:17 Confirmation # [id number] Dictation # [id number] melva CAMPBELL
[2016-11-09] MEDS: Omega-3-Acid Ethyl Esters 1 GM Cap PO SCH (09:33)
[2016-11-09] MEDS: Enoxaparin 40 mg Syringe SC SCH (09:33)
[2016-11-09] MEDS: Multiple Vitamins Tab PO SCH (09:35)
[2016-11-09] MEDS: (Novolin 70/30) NPH/Regular 70/30 Units/ml 10 ml vial SC SCH ×3 (09:35→17:27)
[2016-11-09 16:26] VITALS: BP 96/49; PULSE 90; RESP 20; TEMP 97.2; O2SAT 97
--- NOTE | 2016-11-09 18:16 | CP.PCM.PN ---
Subjective - Date & Time of Evaluation Date of Evaluation: 11/09/16 Time of Evaluation: 10:20 - Subjective Subjective: clinically same Objective - Vital Signs/Intake and Output Vital Signs (last 24 hours): Temp Pulse Resp BP Pulse Ox 97.2 F L 90 20 96/49 L 97 11/09/16 15:00 11/09/16 15:00 11/09/16 15:00 11/09/16 15:00 11/09/16 15:00 - Medications Medications: Current Medications Acetaminophen (Tylenol 325mg Tab) 650 mg PO Q6 PRN PRN Reason: Headache Last Admin: 11/07/16 17:11 Dose: 650 mg Aspirin (Ecotrin) 162 mg PO DAILY [facility] Last Admin: 11/09/16 09:33 Dose: 162 mg Docusate Sodium (Colace) 100 mg PO BID [facility] Last Admin: 11/09/16 17:26 Dose: 100 mg Enalapril Maleate (Vasotec) 5 mg PO DAILY [facility] Last Admin: 11/09/16 09:35 Dose: 5 mg Enoxaparin Sodium (Lovenox) 40 mg SC DAILY [facility] Last Admin: 11/09/16 09:33 Dose: 40 mg Escitalopram Oxalate (Lexapro) 10 mg PO DAILY [facility] Last Admin: 11/09/16 09:40 Dose: 10 mg Furosemide (Lasix) 20 mg PO DAILY [facility] Last Admin: 11/09/16 09:34 Dose: 20 mg Insulin Detemir (Levemir) 35 unit SC HS [facility] Last Admin: 11/08/16 22:31 Dose: 35 unit Insulin Human Isoph/Insulin Regular (Novolin 70/30 (70/30 Units/Ml) 10 Ml) 15 units SC TID [facility] Last Admin: 11/09/16 17:27 Dose: 15 units Insulin Human Regular (Novolin R) 0 unit SC ACHS [facility] PRN Reason: Protocol Last Admin: 11/09/16 11:39 Dose: 4 unit Multivitamins (Hexavitamin) 1 tab PO DAILY [facility] Last Admin: 11/09/16 09:35 Dose: 1 tab Vpwla-2-Apix Ethyl Esters (Lovaza) 1 gm PO DAILY [facility] Last Admin: 11/09/16 09:33 Dose: 1 gm Rosuvastatin Calcium (Crestor) 40 mg PO HS [facility] Last Admin: 11/08/16 22:30 Dose: 40 mg Ticagrelor (Brilinta) 90 mg PO BID [facility] Last Admin: 11/09/16 17:26 Dose: 90 mg Zolpidem Tartrate (Ambien) 5 mg PO HS PRN PRN Reason: Sleep Last Admin: 11/06/16 22:19 Dose: 5 mg - Labs Labs: PT 10.7 SECONDS (9.7-12.2) 11/03/16 10:53 INR 0.9 11/03/16 10:53 APTT 26 SECONDS (21-34) 11/03/16 10:53
--- NOTE | 2016-11-09 18:26 | CP.PCM.PN ---
Subjective - Date & Time of Evaluation Date of Evaluation: 11/09/16 Time of Evaluation: 10:00 - Subjective Subjective: 51 Y/O FEMALE SEEN AND EXAMINED BY DR Rubi OROSCO TODAY PMHX:- DM II, CABG (2016), +EST (2 STENTS IN CIRC), MULTIPLE ADMISSION W/ DIZZINESS, S/P CORONARY ANGIOPLASTY CT HEAD- NEGATIVE MRI BRAIN- MULTIPLE T2 SIGNAL ISCHEMIC CHNAGES MRA OF NECK- LEFT ICA- 65% OCCLUSION, RIGHT ICA- NO OCCLUSION REMAIN STABLE, NO NEURO DEFICIT CLEARED FOR D/C PER DR ARREGUIN AND DR SANDY CONTINUE DUAL ANTIPLATELETS AND HOME MEDS REPEAT CAROTID DOPPLER IN 3-6 MONTHS F/U W/PMD, NEURO AND CARDIO PT AGREE W/POC, VERBALIZE UNDERSTANDING Objective - Vital Signs/Intake and Output Vital Signs (last 24 hours): Temp Pulse Resp BP Pulse Ox 97.2 F L 90 20 96/49 L 97 11/09/16 15:00 11/09/16 15:00 11/09/16 15:00 11/09/16 15:00 11/09/16 15:00 - Medications Medications: Current Medications Acetaminophen (Tylenol 325mg Tab) 650 mg PO Q6 PRN PRN Reason: Headache Last Admin: 11/07/16 17:11 Dose: 650 mg Aspirin (Ecotrin) 162 mg PO DAILY [facility] Last Admin: 11/09/16 09:33 Dose: 162 mg Docusate Sodium (Colace) 100 mg PO BID [facility] Last Admin: 11/09/16 17:26 Dose: 100 mg Enalapril Maleate (Vasotec) 5 mg PO DAILY [facility] Last Admin: 11/09/16 09:35 Dose: 5 mg Enoxaparin Sodium (Lovenox) 40 mg SC DAILY [facility] Last Admin: 11/09/16 09:33 Dose: 40 mg Escitalopram Oxalate (Lexapro) 10 mg PO DAILY [facility] Last Admin: 11/09/16 09:40 Dose: 10 mg Furosemide (Lasix) 20 mg PO DAILY [facility] Last Admin: 11/09/16 09:34 Dose: 20 mg Insulin Detemir (Levemir) 35 unit SC HS [facility] Last Admin: 11/08/16 22:31 Dose: 35 unit Insulin Human Isoph/Insulin Regular (Novolin 70/30 (70/30 Units/Ml) 10 Ml) 15 units SC TID [facility] Last Admin: 11/09/16 17:27 Dose: 15 units Insulin Human Regular (Novolin R) 0 unit SC ACHS [facility] PRN Reason: Protocol Last Admin: 11/09/16 11:39 Dose: 4 unit Multivitamins (Hexavitamin) 1 tab PO DAILY [facility] Last Admin: 11/09/16 09:35 Dose: 1 tab Iwmgf-8-Hgrf Ethyl Esters (Lovaza) 1 gm PO DAILY [facility] Last Admin: 11/09/16 09:33 Dose: 1 gm Rosuvastatin Calcium (Crestor) 40 mg PO HS [facility] Last Admin: 11/08/16 22:30 Dose: 40 mg Ticagrelor (Brilinta) 90 mg PO BID [facility] Last Admin: 11/09/16 17:26 Dose: 90 mg Zolpidem Tartrate (Ambien) 5 mg PO HS PRN PRN Reason: Sleep Last Admin: 11/06/16 22:19 Dose: 5 mg - Labs Labs: PT 10.7 SECONDS (9.7-12.2) 11/03/16 10:53 INR 0.9 11/03/16 10:53 APTT 26 SECONDS (21-34) 11/03/16 10:53
== END 2016-11-09 19:00 | disposition home or self-care (01) | DRG 140 ==
LOC: C.ER 10:11 → C.6T 13:58 → OBSVTOIN 11-06 13:53
PROVIDERS: ADMIT Internal Medicine Nephrology; ATTEND Internal Medicine Nephrology
DX: I24.9 Acute ischemic heart disease, unspecified (principal); E11.22 Type 2 diabetes mellitus with diabetic chronic kidney disease; E11.65 Type 2 diabetes mellitus with hyperglycemia; N18.9 Chronic kidney disease, unspecified; G45.9 Transient cerebral ischemic attack, unspecified; E78.00 Pure hypercholesterolemia, unspecified; I25.10 Atherosclerotic heart disease of native coronary artery without angina pectoris; E66.9 Obesity, unspecified; I12.9 Hypertensive chronic kidney disease with stage 1 through stage 4 chronic kidney disease, or unspecified chronic kidney disease; F41.9 Anxiety disorder, unspecified; G47.33 Obstructive sleep apnea (adult) (pediatric); J45.909 Unspecified asthma, uncomplicated; K21.9 Gastro-esophageal reflux disease without esophagitis; Z95.1 Presence of aortocoronary bypass graft; Z79.4 Long term (current) use of insulin

== ENCOUNTER 2016-12-19 16:58 | Emergency (ER) | payer MEDICAID ==
[2016-12-20 09:00] LABS: ALB/GLOB RATIO 1.1 (1.0-2.1); ALBUMIN 4.4 g/dL (3.5-5.0); ALT/SGPT 29 U/L (9-52); AST/SGOT 35 U/L (14-36); BLOOD UREA NITROGEN 20 mg/dL (7-17); CALCIUM 9.4 mg/dl (8.6-10.4); GFR AFRICAN-AMERICAN > 60; GFR NON-AFRICAN AMERICAN > 60
[2016-12-20 09:02] LABS: BASO % 0.6 % (0.0-2.0); EOS # 0.1 K/uL (0.0-0.7); EOS % 1.1 % (0.0-4.0); LYMPH # 1.9 K/uL (1.0-4.3); LYMPH % 32.7 % (20.0-40.0); MEAN CELL VOLUME 77.1 fL (81.0-99.0); MEAN CORPUSCULAR HGB CONC 31.2 g/dL (33.0-37.0); MEAN PLATELET VOLUME 9.7 fL (7.2-11.7); MONO # 0.8 K/uL (0.0-0.8); MONO % 13.7 % (0.0-10.0); NEUT # 3.1 K/uL (1.8-7.0); NEUT % 51.9 % (50.0-75.0); RBC 4.57 Mil/uL (3.80-5.20); RED CELL DISTRIBUTION WIDTH 19.2 % (11.5-14.5); WHITE BLOOD COUNT 5.9 K/uL (4.8-10.8)
[2016-12-20 10:17] LABS: SQUAMOUS EPITHIAL 2 /hpf (0-5); URINE BACTERIA FEW (<OCC); URINE BILIRUBIN NEGATIVE (NEGATIVE); URINE BLOOD NEGATIVE (NEGATIVE); URINE CLARITY Hazy (Clear); URINE COLOR Yellow (YELLOW); URINE GLUCOSE (UA) 1+ mg/dL (Normal); URINE LEUKOCYTE ESTERASE 2+ Leu/uL (Negative); URINE NITRATE NEGATIVE (NEGATIVE); URINE PROTEIN NEGATIVE (NEGATIVE); URINE UROBILINOGEN NORMAL mg/dL (0.2-1.0)
--- NOTE | 2016-12-30 08:34 | CARD ---
APPROVED REPORT EKG Measurement Heart [id number] <Conclusion> Sinus bradycardia Nonspecific T wave abnormality Abnormal ECG
== END 2016-12-19 23:30 | disposition home or self-care (01) ==
LOC: C.ER 16:58
DX: N39.0 Urinary tract infection, site not specified (principal); E86.0 Dehydration

== ENCOUNTER 2017-03-27 09:19 | Inpatient (IN) | payer MEDICAID ==
[2017-03-27 09:19] VITALS: BMI 36.4
--- NOTE | 2017-03-27 09:50 | C.PDOC ---
History Of Present Illness 51 yr old F BIBA for left arm numnbess, heaviness, and twitching sensation that started around 4 AM today and slowly resolved by the time pt got to ED. Pt also c/o frontal headache that started at 8 AM. Pt felt dizzy and took Meclizine in AM with improvement. Pt denies n/v/d, abdominal pain, chest pain or weakness in any of the extremities. Time Seen by Provider: 03/27/17 09:42 Chief Complaint (Nursing): Weakness/Neurological Deficit History Per: Patient, Family History/Exam Limitations: no limitations Onset/Duration Of Symptoms: Sudden Onset (at 4 AM) Current Symptoms Are (Timing): Better (numnbess completely resolved, minimal heaviness of left arm and headache still present) Past Medical History Reviewed: Historical Data, Nursing Documentation, Vital Signs Vital Signs: Last Vital Signs Temp 98.2 F 03/27/17 16:02 Pulse 58 L 03/27/17 16:02 Resp 20 03/27/17 16:02 BP 109/50 L 03/27/17 16:15 Pulse Ox 100 03/27/17 16:39 - Medical History PMH: Anxiety, Asthma, CAD, Cardia Arrhythmia, Depression, Diabetes, Gastritis, Gastrointestinal Ulcer, Gall Bladder Disease, HTN, Hypercholesterolemia, Chronic Kidney Disease, Sleep Apnea, TIA Surgical History: CABG (september 2008 x4), Cholecystectomy, Coronary Stent (9 stents) - [facility] Procedures APPLICATION OF SPLINT (06/09/14) CORONAR ARTERIOGR-2 CATH (12/14/14) DILATION OF 1 COR ART WITH DRUG-ELUT INTRALUM, PERC APPROACH (05/26/15) DILATION OF CORONARY ARTERY, ONE SITE, PERCUTANEOUS APPROACH (03/04/16) FLUOROSCOPY OF LEFT HEART USING LOW OSMOLAR CONTRAST (05/26/15) FLUOROSCOPY OF SINGLE CORONARY ARTERY USING L OSM CONTRAST (05/26/15) INFLUENZA VACCINATION (05/08/14) LEFT HEART CARDIAC CATH (12/14/14) LT HEART ANGIOCARDIOGRAM (12/14/14) MEASURE OF CARDIAC SAMPL & PRESSURE, L HEART, PERC APPROACH (03/04/16) OTHER ENDOSCOPY OF SM INTEST (01/21/14) PLAIN RADIOGRAPHY OF LEFT HEART USING OTHER CONTRAST (03/04/16) PLAIN RADIOGRAPHY OF MULT COR ART USING OTH CONTRAST (03/04/16) TETANUS TOXOID ADMINIST (06/09/14) TRANSFUSE NONAUT RED BLOOD CELLS IN PERIPH VEIN, PERC (03/30/16) VACCINATION NEC (05/08/14) Family History: States: Unknown Family Hx - Social History Hx Tobacco Use: No Hx Alcohol Use: No Hx Substance Use: No - Immunization History Hx Tetanus Toxoid Vaccination: Yes (06/09/14) Hx Influenza Vaccination: Yes (2015) Hx Pneumococcal Vaccination: Yes Review Of Systems Constitutional: Negative for: Fever, Chills Eyes: Negative for: Pain, Vision Change ENT: Negative for: Ear Pain, Ear Discharge, Nose Pain, Nose Discharge Cardiovascular: Positive for: Light Headedness. Negative for: Chest Pain, Palpitations, Orthopnea Respiratory: Negative for: Cough, Shortness of Breath Gastrointestinal: Negative for: Nausea, Vomiting, Abdominal Pain Genitourinary: Negative for: Dysuria Neurological: Positive for: Weakness, Numbness, Headache, Dizziness. Negative for: Change in Speech, Altered Mental Status Physical Exam - Physical Exam Appears: Well, Non-toxic, No Acute Distress Skin: Normal Color, Warm, Dry Head: Atraumatic, Normacephalic Eye(s): bilateral: Normal Inspection Ear(s): Bilateral: Normal Nose: Normal Oral Mucosa: Moist Tongue: Normal Appearing Lips: Normal Appearing Throat: Normal Neck: Normal Chest: Symmetrical Cardiovascular: Rhythm Regular Respiratory: Normal Breath Sounds Gastrointestinal/Abdominal: Normal Exam, Bowel Sounds, Soft, Other (obese) Back: Normal Inspection Extremity: Normal ROM, Capillary Refill (less 2 sec) Extremity: Bilateral: Atraumatic Neurological/Psych: Oriented x3, Normal Speech, Normal Motor, Normal Sensation, Normal Reflexes ED Course And Treatment - Laboratory Results Result Diagrams: 03/27/17 10:08 03/27/17 10:08 Lab Interpretation: Abnormal (hyperglycemia, hyponatremia, hypochloremia) ECG: Interpreted By Me ECG Rhythm: Sinus Rhythm, Nonspecific Changes (T wave abnormality) ECG Interpretation: No Acute Changes Rate From EC O2 Sat by Pulse Oximetry: 100 Pulse Ox Interpretation: Normal - Radiology CXR: Interpreted by Me CXR Interpretation: Yes: No Acute Disease Progress Note: Case discussed with PMD Dr. Keith, does not admit here. Case discussed with Dr. Rubi Mcelroy who accepted the pt and requested cardiology consult to be placed. I spoke to pt's Elevator Attendant Dr. Clay, will consult. Dr. Mcelroy will order neurology consult. Reassessment Condition: Improved NIHSS Stroke Scale - Date/Time Evaluation Performed Date Performed: 03/27/17 Time Performed: 09:45 When Was NIHSS Performed: Baseline - How Severe is the Stoke Level of Consciousness: 0=Alert LOC to Questions: 0=Both comments correct LOC to commands: 0=Obeys both correctly Best Gaze: 0=Normal Visual: 0=No visual loss Facial: 0=Normal Motor Arm - Left: 0=No drift Motor Arm - Right: 0=No drift Motor Leg - Left: 0=No drift Motor Leg - Right: 0=No drift Limb Ataxia: 0=Absent Sensory: 0=Normal Best Language: 0=No aphasia Dysarthia: 0=Normal articulation Extinction & Inattention (Neglect): 0=Normal, no object Score: 0 Severity Of Stroke: 0= No Stroke Medical Decision Making Medical Decision Making: Pt with h/o mini TIA, CABG, HTN, hyperlipidemia, DM, asthma, anxiety, PUD, gastritis, ESPERANZA to be placed to tele-obs r/o TIA. Headache resolved post tylenol. Disposition Counseled Patient/Family Regarding: Studies Performed, Diagnosis - Disposition Disposition: HOSPITALIZED Disposition Time: 12:00 Condition: STABLE - POA Present On Arrival: Poor Glycemic Control - Clinical Impression Clinical Impression: Hyperlipemia, TIA (transient ischemic attack), Headache, Hypercholesteremia, Diabetes Decision To Admit - Pt Status Changed To: Hospital Disposition Of: Observation - . Bed Request Type: Telemetry Admitting Physician: Spencer Mcelroy Patient Diagnosis: Hyperlipemia, TIA (transient ischemic attack), Headache, Hypercholesteremia
[2017-03-27 10:15] LABS: BASO % 0.5 % (0.0-2.0); EOS # 0.1 K/uL (0.0-0.7); HEMATOCRIT 38.3 % (34.0-47.0); LYMPH # 1.6 K/uL (1.0-4.3); LYMPH % 23.1 % (20.0-40.0); MEAN CELL VOLUME 82.6 fL (81.0-99.0); MEAN CORPUSCULAR HEMOGLOBIN 27.5 pg (27.0-31.0); MEAN CORPUSCULAR HGB CONC 33.2 g/dL (33.0-37.0); MEAN PLATELET VOLUME 10.2 fL (7.2-11.7); MONO # 0.7 K/uL (0.0-0.8); MONO % 9.7 % (0.0-10.0); NRBC % 0.1 % (0.0-2.0); RED CELL DISTRIBUTION WIDTH 17.6 % (11.5-14.5); WHITE BLOOD COUNT 6.8 K/uL (4.8-10.8)
[2017-03-27 10:23] LABS: CHLORIDE 96 mmol/L (98-107); POTASSIUM 4.7 mmol/L (3.6-5.2); SODIUM 130 mmol/L (132-148)
[2017-03-27 10:25] LABS: BILIRUBIN,TOTAL 0.7 mg/dL (0.2-1.3); CARBON DIOXIDE 22 mmol/L (22-30); CHOLESTEROL 188 mg/dL (0-199); GFR AFRICAN-AMERICAN > 60
[2017-03-27 10:26] LABS: ALKALINE PHOSPHATASE 65 U/L (38-126); ALT/SGPT 28 U/L (9-52); AST/SGOT 26 U/L (14-36); BLOOD UREA NITROGEN 18 mg/dL (7-17); CALCIUM 8.3 mg/dl (8.6-10.4); GLUCOSE,RANDOM 312 mg/dL (65-105); TOTAL PROTEIN 7.6 g/dL (6.3-8.3)
--- NOTE | 2017-03-27 10:35 | CT ---
PROCEDURE: CT HEAD WITHOUT CONTRAST. HISTORY: Code ALERT. 51 years old woman with left-sided numbness COMPARISON: Comparison is made to the previous exam dated 11/03/2016 TECHNIQUE: Axial computed tomography images were obtained through the head/brain without intravenous contrast. Radiation dose: Total exam DLP = 946.33 mGy-cm. This CT exam was performed using one or more of the following dose reduction techniques: Automated exposure control, adjustment of the mA and/or kV according to patient size, and/or use of iterative reconstruction technique. FINDINGS: HEMORRHAGE: No intracranial hemorrhage. BRAIN: No mass effect or edema. No atrophy or chronic microvascular ischemic changes. VENTRICLES: Unremarkable. No hydrocephalus. CALVARIUM: Unremarkable. PARANASAL SINUSES: Unremarkable as visualized. No significant inflammatory changes. MASTOID AIR CELLS: Unremarkable as visualized. No inflammatory changes. OTHER FINDINGS: None. IMPRESSION: No evidence of acute intracranial hemorrhage intracranial collection mass effect or midline shift. No CT evidence of territorial infarction.
[2017-03-27] MEDS ORDERED: Sodium Chloride 0.9% 1,000 ML IV ONE (10:40)
[2017-03-27] MEDS ORDERED: Sodium Chloride 0.9% 1,000 ML ONE (10:48)
--- NOTE | 2017-03-27 11:16 | RAD ---
HISTORY: WEAKNESS, NUMBNESS COMPARISON: Comparison is made to 09/10/2016 FINDINGS: LUNGS: No active pulmonary disease. PLEURA: No significant pleural effusion identified, no pneumothorax apparent. CARDIOVASCULAR: The cardiac silhouette is prominent in size. Patient status post sternotomy OSSEOUS STRUCTURES: No significant abnormalities. VISUALIZED UPPER ABDOMEN: Normal. OTHER FINDINGS: None. IMPRESSION: No active disease.
--- NOTE | 2017-03-27 14:49 | CP.PCM.HP ---
Past Patient History - Infectious Disease Hx of Infectious Diseases: None - Past Medical History & Family History Past Medical History?: Yes - Past Social History Smoking Status: Never Smoked - CARDIAC Hx Cardia Arrhythmia: Yes Hx Hypercholesterolemia: Yes Hx Hypertension: Yes - PULMONARY Hx Asthma: Yes Hx Sleep Apnea: Yes - NEUROLOGICAL Hx Transient Ischemic Attacks (TIA): Yes - HEENT Hx HEENT Problems: No - RENAL Hx Chronic Kidney Disease: Yes - ENDOCRINE/METABOLIC Hx Endocrine Disorders: Yes Hx Diabetes Mellitus Type 1: Yes - HEMATOLOGICAL/ONCOLOGICAL Hx Blood Disorders: Yes - INTEGUMENTARY Hx Dermatological Problems: Yes Hx Psoriasis: Yes (mild) - MUSCULOSKELETAL/RHEUMATOLOGICAL Hx Musculoskeletal Disorders: No Hx Falls: No - GASTROINTESTINAL Hx Gall Bladder Disease: Yes Hx Gastritis: Yes - GENITOURINARY/GYNECOLOGICAL Hx Genitourinary Disorders: No - PSYCHIATRIC Hx Anxiety: Yes Hx Depression: Yes Hx Substance Use: No - SURGICAL HISTORY Hx Cholecystectomy: Yes Hx Coronary Artery Bypass Graft: Yes (september 2008 x4) Hx Coronary Stent: Yes (9 stents) - ANESTHESIA Hx Anesthesia: Yes Hx Anesthesia Reactions: No Hx Malignant Hyperthermia: No Meds Allergies/Adverse Reactions: Allergies Allergy/AdvReac Type Severity Reaction Status Date / Time iodine Allergy Severe URTICARIA Verified 03/27/17 09:24 latex Allergy Severe URTICARIA Verified 03/27/17 09:24 seafood Allergy Severe URTICARIA Uncoded 03/27/16 16:33 Physical Exam - Constitutional Appears: Well - Head Exam Head Exam: ATRAUMATIC, NORMAL INSPECTION, NORMOCEPHALIC - Eye Exam Eye Exam: EOMI, Normal appearance, PERRL Pupil Exam: NORMAL ACCOMODATION, PERRL - ENT Exam ENT Exam: Mucous Membranes Moist, Normal Exam - Neck Exam Neck exam: Positive for: Normal Inspection - Respiratory Exam Respiratory Exam: Decreased Breath Sounds - Cardiovascular Exam Cardiovascular Exam: REGULAR RHYTHM, +S1, +S2 - GI/Abdominal Exam GI & Abdominal Exam: Diminished Bowel Sounds, Soft - Rectal Exam Rectal Exam: Deferred Results - Vital Signs Recent Vital Signs: Last Vital Signs Temp 97.8 F 03/27/17 09:24 Pulse 63 03/27/17 13:53 Resp 20 03/27/17 13:53 BP 146/67 03/27/17 13:53 Pulse Ox 95 03/27/17 13:53 - Labs Result Diagrams: 03/27/17 10:08 03/27/17 10:08 Labs: Laboratory Results - last 24 hr 03/27/17 03/27/17 03/27/17 10:08 10:08 10:08 WBC 6.8 RBC 4.64 Hgb 12.7 Hct 38.3 MCV 82.6 D MCH 27.5 MCHC 33.2 RDW 17.6 H Plt Count 180 MPV 10.2 Neut % (Auto) 65.7 Lymph % (Auto) 23.1 Hooker % (Auto) 9.7 Eos % (Auto) 1.0 Baso % (Auto) 0.5 Neut # 4.4 Lymph # 1.6 Hooker # 0.7 Eos # 0.1 Baso # 0.0 PT 11.3 INR 1.0 APTT 25 Sodium 130 L Potassium 4.7 Chloride 96 L Carbon Dioxide 22 Anion Gap 17 BUN 18 H Creatinine 0.6 L Est GFR ( Amer) > 60 Est GFR (Non-Af Amer) > 60 Random Glucose 312 H Calcium 8.3 L Total Bilirubin 0.7 AST 26 ALT 28 Alkaline Phosphatase 65 Troponin I < 0.0120 Total Protein 7.6 Albumin 3.8 Globulin 3.8 Albumin/Globulin Ratio 1.0 Triglycerides 248 H D Cholesterol 188 LDL Cholesterol Direct 133 H HDL Cholesterol 42 Blood Type Antibody Screen 03/27/17 10:08 WBC RBC Hgb Hct MCV MCH MCHC RDW Plt Count MPV Neut % (Auto) Lymph % (Auto) Hooker % (Auto) Eos % (Auto) Baso % (Auto) Neut # Lymph # Hooker # Eos # Baso # PT INR APTT Sodium Potassium Chloride Carbon Dioxide Anion Gap BUN Creatinine Est GFR ( Amer) Est GFR (Non-Af Amer) Random Glucose Calcium Total Bilirubin AST ALT Alkaline Phosphatase Troponin I Total Protein Albumin Globulin Albumin/Globulin Ratio Triglycerides Cholesterol LDL Cholesterol Direct HDL Cholesterol Blood Type A POSITIVE Antibody Screen Negative
[2017-03-27] MEDS: Metoprolol Succinate 200 mg XL Tab PO SCH (16:25)
[2017-03-27] MEDS: Multiple Vitamins Tab PO SCH (16:29)
[2017-03-27] MEDS: Sodium Chloride 0.45% 1,000 ML IV SCH (16:54)
[2017-03-27] MEDS: (Novolin R) Insulin Human Regular 100 units/ml vial SC SCH ×2 (17:17→21:43)
[2017-03-27] MEDS: (Novolin 70/30) NPH/Regular 70/30 Units/ml 10 ml vial SC SCH (17:18)
[2017-03-27] MEDS: Ranolazine 500 mg Extended Release Tablets PO SCH (17:19)
[2017-03-27] MEDS: Omega-3-Acid Ethyl Esters 1 GM Cap PO SCH (17:19)
[2017-03-27] MEDS: Pantoprazole 20 mg EC Tab PO SCH (17:19)
[2017-03-27] MEDS ORDERED: Fluticasone-Salmeterol 100-50mcg Diskus IH SCH (20:00)
[2017-03-27] MEDS: Insulin Detemir 100 units/ml Vial (Levemir) SC SCH (21:55)
[2017-03-28] MEDS: Sodium Chloride 0.45% 1,000 ML IV SCH (05:29)
[2017-03-28] MEDS: (Novolin R) Insulin Human Regular 100 units/ml vial SC SCH ×4 (08:00→21:45)
[2017-03-28] MEDS: Multiple Vitamins Tab PO SCH (09:42)
[2017-03-28] MEDS: Ranolazine 500 mg Extended Release Tablets PO SCH ×2 (09:43→17:28)
[2017-03-28] MEDS: Omega-3-Acid Ethyl Esters 1 GM Cap PO SCH (09:43)
[2017-03-28] MEDS: Pantoprazole 20 mg EC Tab PO SCH (09:43)
[2017-03-28] MEDS: Enoxaparin 40 mg Syringe SC SCH (09:43)
[2017-03-28] MEDS: (Novolin 70/30) NPH/Regular 70/30 Units/ml 10 ml vial SC SCH ×2 (10:00→17:29)
[2017-03-28] MEDS: Metoprolol Succinate 200 mg XL Tab PO SCH (10:00)
--- NOTE | 2017-03-28 11:26 | CP.PCM.PN ---
Subjective - Date & Time of Evaluation Date of Evaluation: 03/28/17 Time of Evaluation: 11:40 - Subjective Subjective: clinically same Objective - Vital Signs/Intake and Output Vital Signs (last 24 hours): Temp Pulse Resp BP Pulse Ox 98.1 F 57 L 20 120/70 99 03/28/17 07:00 03/28/17 07:00 03/28/17 07:00 03/28/17 09:42 03/28/17 07:00 Intake and Output: 03/28/17 03/28/17 06:59 18:59 Intake Total 2210 Balance 2210 - Medications Medications: Current Medications Aspirin (Ecotrin) 81 mg PO DAILY [facility] Last Admin: 03/28/17 09:42 Dose: 81 mg Clopidogrel Bisulfate (Plavix) 75 mg PO DAILY [facility] Last Admin: 03/28/17 09:42 Dose: 75 mg Enoxaparin Sodium (Lovenox) 40 mg SC DAILY [facility] Last Admin: 03/28/17 09:43 Dose: 40 mg Furosemide (Lasix) 20 mg PO DAILY [facility] Last Admin: 03/28/17 09:42 Dose: 20 mg Sodium Chloride (Sodium Chloride 0.45%) 1,000 mls @ 80 mls/hr IV .[id number] [facility] Stop: 03/28/17 16:46 Last Admin: 03/28/17 05:29 Dose: 80 mls/hr Insulin Detemir (Levemir) 35 unit SC HS [facility] Last Admin: 03/27/17 21:55 Dose: 35 unit Insulin Human Isoph/Insulin Regular (Novolin 70/30 (70/30 Units/Ml) 10 Ml) 10 units SC BID [facility] Last Admin: 03/27/17 17:18 Dose: 10 units Insulin Human Regular (Novolin R) 0 unit SC ACHS [facility] PRN Reason: Protocol Last Admin: 03/28/17 08:00 Dose: 2 unit Loratadine (Claritin) 10 mg PO DAILY [facility] Last Admin: 03/28/17 09:42 Dose: 10 mg Meclizine HCl (Antivert) 12.5 mg PO BID PRN PRN Reason: Dizziness Metoprolol Succinate (Toprol Xl) 200 mg PO DAILY [facility] Last Admin: 03/27/17 16:25 Dose: Not Given Multivitamins (Hexavitamin) 1 tab PO DAILY [facility] Last Admin: 03/28/17 09:42 Dose: 1 tab Qsnox-6-Lbmu Ethyl Esters (Lovaza) 1 gm PO DAILY [facility] Last Admin: 03/28/17 09:43 Dose: 1 gm Pantoprazole Sodium (Protonix Ec Tab) 20 mg PO DAILY [facility] Last Admin: 03/28/17 09:43 Dose: 20 mg Ranolazine (Ranexa) 1,000 mg PO BID [facility] Last Admin: 03/28/17 09:43 Dose: 1,000 mg Rosuvastatin Calcium (Crestor) 10 mg PO HS [facility] Last Admin: 03/27/17 21:18 Dose: 10 mg Fluticasone/Salmeterol (Advair Diskus 100/50) 1 puff IH RQ12 [facility] - Labs Labs: 03/27/17 10:08 03/27/17 10:08 PT 11.3 SECONDS (9.7-12.2) 03/27/17 10:08 INR 1.0 03/27/17 10:08 APTT 25 SECONDS (21-34) 03/27/17 10:08 - Constitutional Appears: Well - Head Exam Head Exam: ATRAUMATIC, NORMAL INSPECTION, NORMOCEPHALIC - Eye Exam Eye Exam: EOMI, Normal appearance, PERRL Pupil Exam: NORMAL ACCOMODATION, PERRL - ENT Exam ENT Exam: Mucous Membranes Moist, Normal Exam - Neck Exam Neck Exam: Full ROM, Normal Inspection. absent: Lymphadenopathy - Respiratory Exam Respiratory Exam: Decreased Breath Sounds - Cardiovascular Exam Cardiovascular Exam: REGULAR RHYTHM, +S1, +S2 - GI/Abdominal Exam GI & Abdominal Exam: Soft, Diminished Bowel Sounds - Rectal Exam Rectal Exam: Deferred
--- NOTE | 2017-03-28 13:27 | CP.PCM.CON ---
History of Present Illness - History of Present Illness History of Present Illness: I was asked to see patient by Dr. Mcelroy. Patient is a 51 year old female with an extensive cardiac history who presenst with heaviness and numnbess of the left arm. The patient was noted to have onset of symptoms while at home. She felt a sensation of tingling of the hands. her left arm was heavy. She had associated headache. She is currently asymptomatic. Review of Systems - Constitutional Constitutional: absent: As Per HPI, Anorexia, Chills, Daytime Sleepiness, Excessive Sweating, Fatigue, Fever, Frequent Falls, Headache, Increased Appetite , Lethargy, Malaise, Night Sweats, Snoring, Sleep Apnea, Weight Gain, Weight Loss, Weakness, Other - EENT Eyes: absent: As Per HPI, Blind Spots, Blurred Vision, Change in Vision, Decreased Night Vision, Diplopia, Discharge, Dry Eye, Exophthalmos, Floaters, Irritation, Itchy Eyes, Loss of Peripheral Vision, Pain, Photophobia, Requires Corrective Lenses, Sees Flashes, Spots in Vision, Tunnel Vision, Other Visual Disturbances, Loss of Vision, Other Nose/Mouth/Throat: absent: As Per HPI, Epistaxis, Nasal Congestion, Nasal Discharge, Nasal Obstruction, Nasal Trauma, Nose Pain, Post Nasal Drip, Sinus Pain, Sinus Pressure, Bleeding Gums, Change in Voice, Dental Pain, Dry Mouth, Dysphagia, Halitosis, Hoarsness, Lip Swelling, Mouth Lesions, Mouth Pain, Odynophagia, Sore Throat, Throat Swelling, Tongue Swelling, Facial Pain, Neck Pain, Neck Mass, Other - Cardiovascular Cardiovascular: absent: As Per HPI, Acrocyanosis, Chest Pain, Chest Pain at Rest , Chest Pain with Activity, Claudication, Diaphoresis, Dyspnea, Dyspnea on Exertion, Edema, Irregular Heart Rhythm, Pain Radiating to Arm/Neck/Jaw, Leg Edema, Leg Ulcers, Lightheadedness, Orthopnea, Palpitations, Paroxysmal Nocturnal Dyspnea, Pedal Edema, Radiating Pain, Rapid Heart Rate, Slow Heart Rate, Syncope, Other - Respiratory Respiratory: absent: As Per HPI, Cough, Dyspnea, Hemoptysis, Dyspnea on Exertion , Wheezing, Snoring, Stridor, Pain on Inspiration, Chest Congestion, Excessive Mucous Production, Change in Mucous Color, Pain with Coughing, Other - Gastrointestinal Gastrointestinal: absent: As Per HPI, Abdominal Pain, Belching, Bloating, Change in Bowel Habits, Change in Stool Character, Coffee Ground Emesis, Constipation, Cramping, Diarrhea, Dyspepsia, Dysphagia, Early Satiety, Excessive Flatus, Fecal Incontinence, Heartburn, Hematemesis, Hematochezia, Loose Stools, Melena, Nausea, Odynophagia, Temesmus, Vomiting, Other - Genitourinary Genitourinary: absent: As Per HPI, Change in Urinary Stream, Difficulty Urinating, Dysuria, Flank Pain, Hematuria, Pyuria, Nocturia, Urinary Incontinence, Urinary Frequency, Urinary Hesitance, Urinary Urgency, Voiding Freq/Small Amts, Freq UTI, Hx Renal/Bladder Calculi, Hx /Renal Surgery, Bladder Distension, Other - Musculoskeletal Musculoskeletal: absent: As Per HPI, Abnormal Gait, Arthralgias, Atrophy, Back Pain, Deformity, Joint Swelling, Limited Range of Motion, Loss of Height, Muscle Cramps, Muscle Weakness, Myalgias, Neck Pain, Numbness, Radiating Pain into Limb, Stiffness, Tingling, Other - Integumentary Integumentary: absent: As Per HPI, Acne, Alopecia, Bleeding Lesions, Change in Hair, Change in Nails, Change in Pigmentation, Changing Lesions, Dry Skin, Erythema, Furuncle, Hirsutism, Lesions, New Lesions, Non-Healing Lesions, Photosensitivity, Pruritus, Rash, Skin Pain, Skin Ulcer, Sores, Striae, Swelling , Unusual Bruising, Wounds, Jaundice, Other - Neurological Neurological: Paresthesias - Psychiatric Psychiatric: absent: As Per HPI, Abnormal Sleep Pattern, Anhedonia, Anxiety, Auditory Hallucinations, Behavioral Changes, Change in Appetite, Change in Libido, Confusion, Depression, Difficulty Concentrating, Hallucinations, Homicidal Ideation, Hopelessness, Irritability, Memory Loss, Mood Swings, Panic Attacks, Paranoia, Suicidal Ideation, Visual Hallucinations, Tactile Hallucinations, Other - Endocrine Endocrine: absent: As Per HPI, Change in Body Appearance, Change in Libido, Cold Intolorance, Deepening of Voice, Excessive Sweating, Fatigue, Flushing, Heat Intolorance, Increase in Ring/Shoe/Hat Size, Palpitations, Polydipsia, Polyphagia, Polyuria, Other - Hematologic/Lymphatic Hematologic: absent: As Per HPI, Easy Bleeding, Easy Bruising, Lymphadenopathy, Other Past Patient History - Infectious Disease Hx of Infectious Diseases: None - Past Medical History & Family History Past Medical History?: Yes - Past Social History Smoking Status: Never Smoked - CARDIAC Hx Cardia Arrhythmia: Yes Hx Hypercholesterolemia: Yes Hx Hypertension: Yes - PULMONARY Hx Asthma: Yes Hx Sleep Apnea: Yes - NEUROLOGICAL Hx Transient Ischemic Attacks (TIA): Yes - HEENT Hx HEENT Problems: No - RENAL Hx Chronic Kidney Disease: Yes - ENDOCRINE/METABOLIC Hx Endocrine Disorders: Yes Hx Diabetes Mellitus Type 1: Yes - HEMATOLOGICAL/ONCOLOGICAL Hx Blood Disorders: Yes - INTEGUMENTARY Hx Dermatological Problems: Yes Hx Psoriasis: Yes (mild) - MUSCULOSKELETAL/RHEUMATOLOGICAL Hx Musculoskeletal Disorders: No Hx Falls: No - GASTROINTESTINAL Hx Gall Bladder Disease: Yes Hx Gastritis: Yes - GENITOURINARY/GYNECOLOGICAL Hx Genitourinary Disorders: No - PSYCHIATRIC Hx Anxiety: Yes Hx Depression: Yes Hx Substance Use: No - SURGICAL HISTORY Hx Cholecystectomy: Yes Hx Coronary Artery Bypass Graft: Yes (september 2008 x4) Hx Coronary Stent: Yes (9 stents) - ANESTHESIA Hx Anesthesia: Yes Hx Anesthesia Reactions: No Hx Malignant Hyperthermia: No Meds Allergies/Adverse Reactions: Allergies Allergy/AdvReac Type Severity Reaction Status Date / Time iodine Allergy Severe URTICARIA Verified 03/27/17 09:24 latex Allergy Severe URTICARIA Verified 03/27/17 09:24 seafood Allergy Severe URTICARIA Uncoded 03/27/16 16:33 - Medications Medications: Current Medications Aspirin (Ecotrin) 81 mg PO DAILY [facility]S [facility] 234 BEDS AT [facility] Last Admin: 03/28/17 09:42 Dose: 81 mg Clopidogrel Bisulfate (Plavix) 75 mg PO DAILY COUNTS INCLUDE 234 BEDS AT THE [facility] Last Admin: 03/28/17 09:42 Dose: 75 mg Enoxaparin Sodium (Lovenox) 40 mg SC DAILY COUNTS INCLUDE 234 BEDS AT THE [facility] Last Admin: 03/28/17 09:43 Dose: 40 mg Furosemide (Lasix) 20 mg PO DAILY COUNTS INCLUDE 234 BEDS AT THE [facility] Last Admin: 03/28/17 09:42 Dose: 20 mg Sodium Chloride (Sodium Chloride 0.45%) 1,000 mls @ 80 mls/hr IV .[id number] COUNTS INCLUDE 234 BEDS AT THE [facility] Stop: 03/28/17 16:46 Last Admin: 03/28/17 05:29 Dose: 80 mls/hr Insulin Detemir (Levemir) 35 unit SC [facility] Last Admin: 03/27/17 21:55 Dose: 35 unit Insulin Human Isoph/Insulin Regular (Novolin 70/30 (70/30 Units/Ml) 10 Ml) 10 units SC BID COUNTS INCLUDE 234 BEDS AT THE [facility] Last Admin: 03/28/17 10:00 Dose: 10 units Insulin Human Regular (Novolin R) 0 unit SC ACHS COUNTS INCLUDE 234 BEDS AT THE [facility] PRN Reason: Protocol Last Admin: 03/28/17 12:00 Dose: 5 unit Loratadine (Claritin) 10 mg PO DAILY COUNTS INCLUDE 234 BEDS AT THE [facility] Last Admin: 03/28/17 09:42 Dose: 10 mg Meclizine HCl (Antivert) 12.5 mg PO BID PRN PRN Reason: Dizziness Metoprolol Succinate (Toprol Xl) 200 mg PO DAILY COUNTS INCLUDE 234 BEDS AT THE [facility] Last Admin: 03/28/17 10:00 Dose: Not Given Multivitamins (Hexavitamin) 1 tab PO DAILY [facility]S INCLUDE 234 BEDS AT THE [facility] Last Admin: 03/28/17 09:42 Dose: 1 tab Vktom-1-Crfc Ethyl Esters (Lovaza) 1 gm PO DAILY COUNTS INCLUDE 234 BEDS AT THE [facility] Last Admin: 03/28/17 09:43 Dose: 1 gm Pantoprazole Sodium (Protonix Ec Tab) 20 mg PO DAILY COUNTS INCLUDE 234 BEDS AT THE [facility] Last Admin: 03/28/17 09:43 Dose: 20 mg Ranolazine (Ranexa) 1,000 mg PO BID COUNTS INCLUDE 234 BEDS AT THE [facility] Last Admin: 03/28/17 09:43 Dose: 1,000 mg Rosuvastatin Calcium (Crestor) 10 mg PO HS COUNTS INCLUDE 234 BEDS AT THE [facility] Last Admin: 03/27/17 21:18 Dose: 10 mg Fluticasone/Salmeterol (Advair Diskus 100/50) 1 puff IH RQ12 COUNTS INCLUDE 234 BEDS AT THE [facility] Physical Exam - Constitutional Appears: Non-toxic - Head Exam Head Exam: NORMAL INSPECTION - Eye Exam Eye Exam: Normal appearance - ENT Exam ENT Exam: Mucous Membranes Moist - Neck Exam Neck exam: Positive for: Full Rom - Respiratory Exam Respiratory Exam: Decreased Breath Sounds - Cardiovascular Exam Cardiovascular Exam: REGULAR RHYTHM - GI/Abdominal Exam GI & Abdominal Exam: Normal Bowel Sounds - Rectal Exam Rectal Exam: Deferred - Extremities Exam Extremities exam: Positive for: normal inspection - Back Exam Back exam: NORMAL INSPECTION - Neurological Exam Neurological exam: Alert, Oriented x3 - Psychiatric Exam Psychiatric exam: Normal Affect - Skin Skin Exam: Normal Color Results - Vital Signs Recent Vital Signs: Last Vital Signs Temp 98.1 F 03/28/17 07:00 Pulse 57 L 03/28/17 07:00 Resp 20 03/28/17 07:00 BP 120/70 03/28/17 09:42 Pulse Ox 99 03/28/17 07:00 - Labs Result Diagrams: 03/27/17 10:08 03/27/17 10:08 Labs: Laboratory Results - last 24 hr 03/27/17 03/27/17 03/28/17 16:58 21:37 06:32 POC Glucose (mg/dL) 344 H 254 H 241 H 03/28/17 12:13 POC Glucose (mg/dL) 376 H - EKG Data EKG Interpreted by: Myself Assessment & Plan (1) TIA (transient ischemic attack) Assessment and Plan: awaiting MRI. On antiplatelet therapy Status: Acute (2) Diabetes Assessment and Plan: continue blood sugar control Status: Acute (3) Hypercholesteremia Assessment and Plan: patient did not tolerate statin therapy due to severe myalgias. LDL is elevated ans should be well below 100 given DM, CAD and previous TIA. WIll recommend Repath therapy as this will successfully reduce LDL levels. Status: Acute (4) CAD (coronary artery disease) Assessment and Plan: on antiplatelet therapy. Patient has multiple coronary procedures. Status: Acute
--- NOTE | 2017-03-28 13:41 | CON ---
NEUROLOGY CONSULTATION DATE: ATTENDING PHYSICIAN: Shellie Mcelroy MD REASON FOR CONSULTATION: TIA. PATIENT'S HISTORY: The patient is a 51-year-old, right-handed, pleasant lady with past medical history of hypertension, hyperlipidemia, diabetes mellitus, coronary artery disease status post quadruple bypass, TIA, CVA, sleep apnea, chronic kidney disease, gastritis, gastrointestinal ulcer, gallbladder disease, arrhythmia, asthma, and anxiety. The patient stated that she woke up in the morning 4 o'clock and had an episode of numbness and tingling of the face and arm associated with weakness, it lasted up to 7 o'clock in the morning. The patient denies dysphagia, dysarthria, double vision, blurred vision, or any symptoms in the lower extremities. The patient stated my arm was numb and tingly and heavy. The patient had similar episode a year ago and was admitted to [facility] for the same reason, at that time had MRI of the brain and was told that she had CVA, as per patient. PAST MEDICAL HISTORY: As mentioned above. MEDICATIONS: Meclizine, loratadine, rosuvastatin, aspirin, multivitamin, furosemide, insulin, omega-3, enoxaparin, clopidogrel, pantoprazole, and ranolazine. REVIEW OF SYSTEMS: As per H and P and ER notes reviewed. SOCIAL HISTORY: Denied smoking, ethanol, or drug abuse. FAMILY HISTORY: No family history of CVA at young age. ALLERGIES: IODINE AND LATEX. PHYSICAL EXAMINATION: VITAL SIGNS: Blood pressure 109/50, pulse 58, respirations 20, and temperature 98.2. MENTAL STATUS: The patient is alert, awake, and oriented x3. Normal naming, repetition and comprehension. No agnosia. No apraxia. No right to left confusion or finger agnosia. Double simultaneous stimulation intact. CRANIAL NERVES: Pupils, symmetrically reactive to light and accommodation. Extraocular movements are intact. V1 to V3 intact. No double vision, no blurred vision, no nystagmus, no field defect. Tongue midline. Gag intact. MOTOR: Normal tone in upper and lower extremities. No facial droop. No tremors, action, rest, and postural. No myoclonus. Upper extremities deltoid, elbow, and compliance mgr 5/5. Lower extremities, hip flexion, knee flexion, extension, and ankle 5/5. Deep tendon reflexes 1 in upper extremities, absent at the knee and ankles. Plantar flexion both sides. SENSORY: Pinprick, light touch and position intact. Coordination, [id number] intact. Romberg is negative. The patient is able to go few steps tandem, non-ataxic. The patient's exam is relatively within normal limits except for absent and deep tendon reflexes on the lower extremities. LABORATORY DATA: CAT scan of the brain did not reveal significant findings. White blood cell 6.8, red blood cells 4.6, hemoglobin 12.7, hematocrit 38.3, MCV 82. Sodium 130, potassium 4.7, chloride 96, CO2 is 22, anion gap 17, BUN 18, creatinine 0.6, and glucose 312. IMPRESSION: Transient facial numbness and tingling and heaviness of the left side of the body. DIFFERENTIAL DIAGNOSIS: 1. Transient ischemia attack secondary to vascular etiology. 2. Hyperglycemia. 3. Cerebral hypoperfusion secondary to intracranial atherosclerosis versus carotid stenosis. 4. Complex partial seizures, I doubted. PLAN: Continue Plavix and aspirin at this point. The patient will need to repeat MRI of the brain and carotid Doppler in addition to EEG, to rule out complex partial seizures, out of bed to chair, better blood sugar control. The patient stated that her blood sugar in the morning when she woke up, it was close to 350. Thank you for the consultation and Dr. Stauffer will follow up the patient tomorrow. Troy Roca MD
[2017-03-28] MEDS: Insulin Detemir 100 units/ml Vial (Levemir) SC SCH (21:51)
[2017-03-29 07:59] LABS: FREE T4 1.07 ng/dL (0.78-2.19)
[2017-03-29 08:13] LABS: THYROID STIMULATING HORMONE 1.94 mIU/L (0.46-4.68)
--- NOTE | 2017-03-29 08:23 | PN ---
ATTENDING PHYSICIAN: Shellie Mcelroy MD LOCATION: The patient is in room #650, bed B. REASON FOR CONSULTATION: Possible transient ischemic attack secondary to right hemispheric dysfunction. SUBJECTIVE: The patient was seen by Dr. Troy Roca during the weekend. PHYSICAL EXAMINATION: VITAL SIGNS: Blood pressure 110/62, mean arterial pressure of 78, respiratory rate 18, temperature 97.8, pulse rate is 68. NECK: Right carotid bruit. NEUROLOGIC: No lateralizing sign except absent reflexes, though the Plantars are equal and respond. The patient's speech is good. No cranial abnormality noted. LABORATORY DATA: The patient's recent lab; glucose 255; WBC 6.8, hemoglobin 12.7, hematocrit 38.3, platelet 180, PT 11.3, INR 1.2, PTT 25. Sodium 130, potassium 4.7, chloride 97, bicarbonate 22, BUN 18, creatinine 0.6. Triglyceride 248, LDL 133, cholesterol 188. The patient had already been placed on aspirin and Plavix, but this is for stroke prophylaxis. The patient also should be on statin and should be on angiotensin-receptor blockers. The patient should be controlled her weight as well as sugar should be controlled. Keep hemoglobin A1c around 6 to 6.2. The patient is requested to have MRI of the brain, carotid Doppler, echocardiogram. The patient will be followed during the workup. If the patient is stable for next 24-hour period given workup is not done, the patient can be followed as an outpatient. The patient should get polysomnogram considering her risk factors hidden; sleep related breathing disorder should be ruled out. James Stauffer MD
[2017-03-29] MEDS: (Novolin R) Insulin Human Regular 100 units/ml vial SC SCH ×4 (08:37→22:57)
[2017-03-29 08:53] LABS: HOMOCYSTEINE 3.5 umol/L (4.7-12.6)
[2017-03-29] MEDS ORDERED: Influenza Vaccine 60 mcg/0.5 mL SYR (4YR UP) IM ONE (10:00)
[2017-03-29] MEDS: Enoxaparin 40 mg Syringe SC SCH (10:11)
[2017-03-29] MEDS: Ranolazine 500 mg Extended Release Tablets PO SCH ×2 (10:11→18:19)
[2017-03-29] MEDS: Pantoprazole 20 mg EC Tab PO SCH (10:11)
[2017-03-29] MEDS: Omega-3-Acid Ethyl Esters 1 GM Cap PO SCH (10:11)
[2017-03-29] MEDS: Multiple Vitamins Tab PO SCH (10:11)
[2017-03-29] MEDS: Metoprolol Succinate 200 mg XL Tab PO SCH (10:14)
[2017-03-29] MEDS: (Novolin 70/30) NPH/Regular 70/30 Units/ml 10 ml vial SC SCH ×2 (10:19→18:18)
--- NOTE | 2017-03-29 10:29 | CP.PCM.PN ---
<Deep Mercado - Last Filed: 03/29/17 16:31> Subjective - Date & Time of Evaluation Date of Evaluation: 03/29/17 Time of Evaluation: 10:26 - Subjective Subjective: PGY-[address] Mcelroy's service: Pt seen and examined at bedside. Nursing reports no acute evnets overnight. Pt for MRI today. She denies headache today. Objective - Vital Signs/Intake and Output Vital Signs (last 24 hours): Temp Pulse Resp BP Pulse Ox 98.0 F 66 18 100/58 L 99 03/29/17 07:05 03/29/17 07:05 03/29/17 07:05 03/29/17 10:10 03/29/17 07:05 Intake and Output: 03/29/17 03/29/17 06:59 18:59 Intake Total 1450 Balance 1450 - Medications Medications: Current Medications Aspirin (Ecotrin) 81 mg PO DAILY [facility] Last Admin: 03/29/17 10:11 Dose: 81 mg Clopidogrel Bisulfate (Plavix) 75 mg PO DAILY [facility] Last Admin: 03/29/17 10:11 Dose: 75 mg Enoxaparin Sodium (Lovenox) 40 mg SC DAILY [facility] Last Admin: 03/29/17 10:11 Dose: 40 mg Furosemide (Lasix) 20 mg PO DAILY [facility] Last Admin: 03/29/17 10:10 Dose: 20 mg Insulin Detemir (Levemir) 35 unit SC HS [facility] Last Admin: 03/28/17 21:51 Dose: 35 unit Insulin Human Isoph/Insulin Regular (Novolin 70/30 (70/30 Units/Ml) 10 Ml) 10 units SC BID [facility] Last Admin: 03/29/17 10:19 Dose: 10 units Insulin Human Regular (Novolin R) 0 unit SC ACHS [facility] PRN Reason: Protocol Last Admin: 03/29/17 08:37 Dose: 3 unit Loratadine (Claritin) 10 mg PO DAILY [facility] Last Admin: 03/29/17 10:10 Dose: 10 mg Meclizine HCl (Antivert) 12.5 mg PO BID PRN PRN Reason: Dizziness Metoprolol Succinate (Toprol Xl) 200 mg PO DAILY [facility] Last Admin: 03/29/17 10:14 Dose: Not Given Multivitamins (Hexavitamin) 1 tab PO DAILY [facility] Last Admin: 03/29/17 10:11 Dose: 1 tab Psveb-8-Jlpu Ethyl Esters (Lovaza) 1 gm PO DAILY [facility] Last Admin: 03/29/17 10:11 Dose: 1 gm Pantoprazole Sodium (Protonix Ec Tab) 20 mg PO DAILY [facility] Last Admin: 03/29/17 10:11 Dose: 20 mg Ranolazine (Ranexa) 1,000 mg PO BID [facility] Last Admin: 03/29/17 10:11 Dose: 1,000 mg Rosuvastatin Calcium (Crestor) 10 mg PO HS [facility] Last Admin: 03/28/17 21:51 Dose: 10 mg Fluticasone/Salmeterol (Advair Diskus 100/50) 1 puff IH RQ12 [facility] - Labs Labs: 03/27/17 10:08 03/27/17 10:08 PT 11.3 SECONDS (9.7-12.2) 03/27/17 10:08 INR 1.0 03/27/17 10:08 APTT 25 SECONDS (21-34) 03/27/17 10:08 - Constitutional Appears: Non-toxic, No Acute Distress - Head Exam Head Exam: ATRAUMATIC, NORMAL INSPECTION - Eye Exam Eye Exam: EOMI, Normal appearance - ENT Exam ENT Exam: Mucous Membranes Moist - Neck Exam Neck Exam: Full ROM - Respiratory Exam Respiratory Exam: Clear to Ausculation Bilateral, NORMAL BREATHING PATTERN. absent: Rales, Rhonchi, Wheezes - Cardiovascular Exam Cardiovascular Exam: REGULAR RHYTHM, +S1, +S2 - GI/Abdominal Exam GI & Abdominal Exam: Soft, Normal Bowel Sounds. absent: Tenderness - Extremities Exam Extremities Exam: Normal Inspection. absent: Pedal Edema - Back Exam Back Exam: absent: CVA tenderness (L), CVA tenderness (R) - Neurological Exam Neurological Exam: Alert, Awake, Oriented x3 - Psychiatric Exam Psychiatric exam: Normal Affect, Normal Mood - Skin Skin Exam: Normal Color, Warm Assessment and Plan - Assessment and Plan (Free Text) Plan: R/O TIA Pt BIBA on 03/27 with left arm numbness - NIH stroke scale documented as 0 by ED physician at time of admission Dr. Stauffer, Neuro consult: help appreciated - continue Asa/plavix f/u Carotid dopplers -f/u EEG to R/o partial complex seizure CT Head (03/27/17): No evidence of acute intracranial hemorrage, mass effect, or midline shift. Brain MRI (03/29/17): No evidence of acute infarction. No acute pathology in brain. Prolactin 35.7 (elevated) CRP 14.57 (elevated) Homocystein 3.5 (low) B12/folate WNL ASA 81 mg PO daily Plavix 75mg PO daily Antivert 12.5 mg PO BID ESPERANZA polysomnogrpahy as OPDX Headache C/o frontal headache at admission, resolved Resolved with Tylenol CAD History of CABG Dr. Clay, Cardio beauty sales consultant: help appreciated - on antiplatelet therapy Ranolazine 1000 mg PO BID HTN Well controlled Metoprolol 200mg PO Daily Lasix 20mg PO daily Type Two DM Uncontrolled; A1C 11.2 on admission BG elevated throughout course; meds will be adjusted today Levemir increase to 40 units SC HS Novolin 70/30 increase to 15 units SC BID ISS Hyperlipidemia Dr. Clay, Cardio beauty sales consultant: help appreciated LDL 133, HDL 42, Triglycerides 242 - with comorbidities goal LDL should be <100 at minimum - pt did not tolerate statins due to myalgias; recommends Repatha therapy Crestor 10mg PO HS Lovaza 1 gm PO Daily Prophylaxis Lovenox 40 mg SC daily Protonix 20mg PO Daily Disposition: Ready for discharge once carotid dopplers are negative Deep Mercado PGY-2 All medical management per Dr. Rubi Mcelroy <Spencer Mcelroy - Last Filed: 03/29/17 23:34> Objective - Vital Signs/Intake and Output Vital Signs (last 24 hours): Temp Pulse Resp BP Pulse Ox 98.2 F 73 20 128/81 97 03/29/17 15:10 03/29/17 16:00 03/29/17 15:10 03/29/17 15:10 03/29/17 15:10 Intake and Output: 03/29/17 03/30/17 18:59 06:59 Intake Total 280 Balance 280 - Medications Medications: Current Medications Aspirin (Ecotrin) 81 mg PO DAILY [facility] Last Admin: 03/29/17 10:11 Dose: 81 mg Clopidogrel Bisulfate (Plavix) 75 mg PO DAILY [facility] Last Admin: 03/29/17 10:11 Dose: 75 mg Enoxaparin Sodium (Lovenox) 40 mg SC DAILY [facility] Last Admin: 03/29/17 10:11 Dose: 40 mg Furosemide (Lasix) 20 mg PO DAILY [facility] Last Admin: 03/29/17 10:10 Dose: 20 mg Insulin Detemir (Levemir) 40 unit SC HS [facility] Last Admin: 03/29/17 22:28 Dose: 40 unit Insulin Human Isoph/Insulin Regular (Novolin 70/30 (70/30 Units/Ml) 10 Ml) 15 units SC BID [facility] Last Admin: 03/29/17 18:18 Dose: 15 units Insulin Human Regular (Novolin R) 0 unit SC ACHS [facility] PRN Reason: Protocol Last Admin: 03/29/17 22:57 Dose: Not Given Loratadine (Claritin) 10 mg PO DAILY [facility] Last Admin: 03/29/17 10:10 Dose: 10 mg Meclizine HCl (Antivert) 12.5 mg PO BID PRN PRN Reason: Dizziness Metoprolol Succinate (Toprol Xl) 200 mg PO DAILY [facility] Last Admin: 03/29/17 10:14 Dose: Not Given Multivitamins (Hexavitamin) 1 tab PO DAILY [facility] Last Admin: 03/29/17 10:11 Dose: 1 tab Cjskw-2-Ezsv Ethyl Esters (Lovaza) 1 gm PO DAILY [facility] Last Admin: 03/29/17 10:11 Dose: 1 gm Pantoprazole Sodium (Protonix Ec Tab) 20 mg PO DAILY [facility] Last Admin: 03/29/17 10:11 Dose: 20 mg Ranolazine (Ranexa) 1,000 mg PO BID [facility] Last Admin: 03/29/17 18:19 Dose: 1,000 mg Rosuvastatin Calcium (Crestor) 10 mg PO HS [facility] Last Admin: 03/29/17 22:28 Dose: 10 mg Fluticasone/Salmeterol (Advair Diskus 100/50) 1 puff IH RQ12 [facility] - Labs Labs: 03/29/17 11:44 03/29/17 11:44 PT 11.3 SECONDS (9.7-12.2) 03/27/17 10:08 INR 1.0 03/27/17 10:08 APTT 25 SECONDS (21-34) 03/27/17 10:08 Attending/Attestation - Attestation I have personally seen and examined this patient.: Yes I have fully participated in the care of the patient.: Yes I have reviewed all pertinent clinical information, including history, physical exam and plan: Yes Notes (Text): 03/29/17 23:34 Case seen and discussed with the staff carotid Doppler echo pending continue aspirin continue Plavix continue request or if it is myalgia. It patient wants the patient to be discharged on something called Relpax as per Dr. Clay I will speak to Dr. Clay
--- NOTE | 2017-03-29 10:46 | MRI ---
PROCEDURE: MRI BRAIN WITHOUT CONTRAST HISTORY: Dx TIA. Headache left arm weakness. COMPARISON: Comparison is made to the previous study dated 11/04/[address] dated 03/27/2017 TECHNIQUE: Multiplanar, multisequence MR images of the brain were obtained without intravenous contrast enhancement. FINDINGS: HEMORRHAGE: None DWI: No evidence of an acute or early subacute infarction. BRAIN PARENCHYMA: No mass effect or edema. Few small foci of hyperintense T2 and FLAIR signal again noted in the white matter. Mild volume loss is again seen. VENTRICLES: Unremarkable. No hydrocephalus. CRANIUM: Unremarkable. ORBITS: Grossly unremarkable. PARANASAL SINUSES/MASTOIDS: Clear VASCULAR SYSTEM: Skull base flow voids intact. OTHER FINDINGS: None. IMPRESSION: No evidence of acute infarction. No evidence of acute pathology in the brain. No significant interval change compared to the prior exam is noted.
[2017-03-29 11:52] LABS: BASO % 0.4 % (0.0-2.0); EOS # 0.1 K/uL (0.0-0.7); EOS % 1.5 % (0.0-4.0); HEMATOCRIT 36.7 % (34.0-47.0); LYMPH # 1.4 K/uL (1.0-4.3); LYMPH % 25.6 % (20.0-40.0); MEAN CELL VOLUME 83.1 fL (81.0-99.0); MEAN CORPUSCULAR HEMOGLOBIN 27.4 pg (27.0-31.0); MONO # 0.6 K/uL (0.0-0.8); MONO % 10.8 % (0.0-10.0); RED CELL DISTRIBUTION WIDTH 17.5 % (11.5-14.5); WHITE BLOOD COUNT 5.3 K/uL (4.8-10.8)
[2017-03-29 12:09] LABS: CHLORIDE 94 mmol/L (98-107)
[2017-03-29 12:10] LABS: POTASSIUM 4.3 mmol/L (3.6-5.2); SODIUM 129 mmol/L (132-148)
[2017-03-29 12:12] LABS: CARBON DIOXIDE 25 mmol/L (22-30); GFR AFRICAN-AMERICAN > 60
[2017-03-29 12:13] LABS: ALB/GLOB RATIO 0.9 (1.0-2.1); ALKALINE PHOSPHATASE 71 U/L (38-126); ALT/SGPT 36 U/L (9-52); AST/SGOT 20 U/L (14-36); BILIRUBIN,TOTAL 0.5 mg/dL (0.2-1.3); BLOOD UREA NITROGEN 15 mg/dL (7-17); GLUCOSE,RANDOM 308 mg/dL (65-105); PHOSPHOROUS 3.5 mg/dL (2.5-4.5); TOTAL PROTEIN 7.7 g/dL (6.3-8.3)
[2017-03-29 12:14] LABS: MAGNESIUM 1.7 mg/dL (1.6-2.3)
--- NOTE | 2017-03-29 16:03 | CP.PCM.PN ---
Subjective - Date & Time of Evaluation Date of Evaluation: 03/29/17 Time of Evaluation: 12:20 - Subjective Subjective: clinically same Objective - Vital Signs/Intake and Output Vital Signs (last 24 hours): Temp Pulse Resp BP Pulse Ox 98.0 F 66 18 100/58 L 99 03/29/17 07:05 03/29/17 07:05 03/29/17 07:05 03/29/17 10:10 03/29/17 07:05 Intake and Output: 03/29/17 03/29/17 06:59 18:59 Intake Total 1450 280 Balance 1450 280 - Medications Medications: Current Medications Aspirin (Ecotrin) 81 mg PO DAILY [facility] Last Admin: 03/29/17 10:11 Dose: 81 mg Clopidogrel Bisulfate (Plavix) 75 mg PO DAILY [facility] Last Admin: 03/29/17 10:11 Dose: 75 mg Enoxaparin Sodium (Lovenox) 40 mg SC DAILY [facility] Last Admin: 03/29/17 10:11 Dose: 40 mg Furosemide (Lasix) 20 mg PO DAILY [facility] Last Admin: 03/29/17 10:10 Dose: 20 mg Insulin Detemir (Levemir) 35 unit SC HS [facility] Last Admin: 03/28/17 21:51 Dose: 35 unit Insulin Human Isoph/Insulin Regular (Novolin 70/30 (70/30 Units/Ml) 10 Ml) 10 units SC BID [facility] Last Admin: 03/29/17 10:19 Dose: 10 units Insulin Human Regular (Novolin R) 0 unit SC ACHS [facility] PRN Reason: Protocol Last Admin: 03/29/17 12:23 Dose: 4 unit Loratadine (Claritin) 10 mg PO DAILY [facility] Last Admin: 03/29/17 10:10 Dose: 10 mg Meclizine HCl (Antivert) 12.5 mg PO BID PRN PRN Reason: Dizziness Metoprolol Succinate (Toprol Xl) 200 mg PO DAILY [facility] Last Admin: 03/29/17 10:14 Dose: Not Given Multivitamins (Hexavitamin) 1 tab PO DAILY [facility] Last Admin: 03/29/17 10:11 Dose: 1 tab [id number] Ethyl Esters (Lovaza) 1 gm PO DAILY [facility] Last Admin: 03/29/17 10:11 Dose: 1 gm Pantoprazole Sodium (Protonix Ec Tab) 20 mg PO DAILY [facility] Last Admin: 03/29/17 10:11 Dose: 20 mg Ranolazine (Ranexa) 1,000 mg PO BID [facility] Last Admin: 03/29/17 10:11 Dose: 1,000 mg Rosuvastatin Calcium (Crestor) 10 mg PO HS [facility] Last Admin: 03/28/17 21:51 Dose: 10 mg Fluticasone/Salmeterol (Advair Diskus 100/50) 1 puff IH RQ12 [facility] - Labs Labs: 03/29/17 11:44 03/29/17 11:44 PT 11.3 SECONDS (9.7-12.2) 03/27/17 10:08 INR 1.0 03/27/17 10:08 APTT 25 SECONDS (21-34) 03/27/17 10:08 - Constitutional Appears: Well - Head Exam Head Exam: ATRAUMATIC, NORMAL INSPECTION, NORMOCEPHALIC - Eye Exam Eye Exam: EOMI, Normal appearance, PERRL Pupil Exam: NORMAL ACCOMODATION, PERRL - ENT Exam ENT Exam: Mucous Membranes Moist, Normal Exam - Neck Exam Neck Exam: Full ROM, Normal Inspection. absent: Lymphadenopathy - Respiratory Exam Respiratory Exam: Decreased Breath Sounds - Cardiovascular Exam Cardiovascular Exam: REGULAR RHYTHM, +S1, +S2 - GI/Abdominal Exam GI & Abdominal Exam: Soft, Diminished Bowel Sounds - Rectal Exam Rectal Exam: Deferred Assessment and Plan - Assessment and Plan (Free Text) Plan: Echo pending Carotid Doppler pending Aspirin Plavix rosuvastatincontinue May switch Crestor to something else Continue following up with the consultations
[2017-03-29 17:16] VITALS: RESP 20
[2017-03-29] MEDS ORDERED: Insulin Detemir 100 units/ml Vial (Levemir) SC SCH (22:00)
[2017-03-30 08:01] VITALS: O2SAT 98
[2017-03-30] MEDS: (Novolin R) Insulin Human Regular 100 units/ml vial SC SCH ×2 (08:16→12:22)
[2017-03-30] MEDS: (Novolin 70/30) NPH/Regular 70/30 Units/ml 10 ml vial SC SCH (09:09)
[2017-03-30] MEDS: Enoxaparin 40 mg Syringe SC SCH (09:10)
[2017-03-30] MEDS: Multiple Vitamins Tab PO SCH (09:10)
[2017-03-30] MEDS: Ranolazine 500 mg Extended Release Tablets PO SCH (10:09)
[2017-03-30] MEDS: Omega-3-Acid Ethyl Esters 1 GM Cap PO SCH (10:10)
--- NOTE | 2017-03-30 10:10 | CP.PCM.PN ---
Subjective - Date & Time of Evaluation Date of Evaluation: 03/30/17 Time of Evaluation: 10:08 - Subjective Subjective: PGY-[address] Mcelroy's service: Pt seen and examined at bedside. Pt for carotid doppler this AM. She is stable for discharge pending results. Patient reporting vaginal itchiness, as well as clumpy, white discharge, but denies dysuria. She denies fever, chills, headache , chest pain, SOB, or numbness/tingling of extremities. Objective - Vital Signs/Intake and Output Vital Signs (last 24 hours): Temp Pulse Resp BP Pulse Ox 98.0 F 75 20 110/74 98 03/30/17 07:05 03/30/17 07:05 03/30/17 07:05 03/30/17 09:10 03/30/17 07:05 Intake and Output: 03/30/17 03/30/17 06:59 18:59 Intake Total 740 Balance 740 - Medications Medications: Current Medications Aspirin (Ecotrin) 81 mg PO DAILY [facility] Last Admin: 03/30/17 09:10 Dose: 81 mg Clopidogrel Bisulfate (Plavix) 75 mg PO DAILY [facility] Last Admin: 03/30/17 09:10 Dose: 75 mg Enoxaparin Sodium (Lovenox) 40 mg SC DAILY [facility] Last Admin: 03/30/17 09:10 Dose: 40 mg Furosemide (Lasix) 20 mg PO DAILY [facility] Last Admin: 03/30/17 09:10 Dose: 20 mg Insulin Detemir (Levemir) 40 unit SC HS [facility] Last Admin: 03/29/17 22:28 Dose: 40 unit Insulin Human Isoph/Insulin Regular (Novolin 70/30 (70/30 Units/Ml) 10 Ml) 15 units SC BID [facility] Last Admin: 03/30/17 09:09 Dose: 15 units Insulin Human Regular (Novolin R) 0 unit SC ACHS [facility] PRN Reason: Protocol Last Admin: 03/30/17 08:16 Dose: 3 unit Loratadine (Claritin) 10 mg PO DAILY [facility] Last Admin: 03/30/17 09:10 Dose: 10 mg Meclizine HCl (Antivert) 12.5 mg PO BID PRN PRN Reason: Dizziness Metoprolol Succinate (Toprol Xl) 200 mg PO DAILY [facility] Last Admin: 03/29/17 10:14 Dose: Not Given Multivitamins (Hexavitamin) 1 tab PO DAILY [facility] Last Admin: 03/30/17 09:10 Dose: 1 tab Sthni-[id number] Ethyl Esters (Lovaza) 1 gm PO DAILY [facility] Last Admin: 03/29/17 10:11 Dose: 1 gm Pantoprazole Sodium (Protonix Ec Tab) 20 mg PO DAILY [facility] Last Admin: 03/29/17 10:11 Dose: 20 mg Ranolazine (Ranexa) 1,000 mg PO BID [facility] Last Admin: 03/29/17 18:19 Dose: 1,000 mg Rosuvastatin Calcium (Crestor) 10 mg PO HS [facility] Last Admin: 03/29/17 22:28 Dose: 10 mg Fluticasone/Salmeterol (Advair Diskus 100/50) 1 puff IH RQ12 [facility] - Labs Labs: 03/29/17 11:44 03/29/17 11:44 PT 11.3 SECONDS (9.7-12.2) 03/27/17 10:08 INR 1.0 03/27/17 10:08 APTT 25 SECONDS (21-34) 03/27/17 10:08 - Constitutional Appears: Non-toxic, No Acute Distress - Head Exam Head Exam: ATRAUMATIC, NORMOCEPHALIC Additional comments: excess body habitus noted - Eye Exam Eye Exam: EOMI, Normal appearance. absent: Scleral icterus - ENT Exam ENT Exam: Mucous Membranes Moist - Respiratory Exam Respiratory Exam: Clear to Ausculation Bilateral, NORMAL BREATHING PATTERN. absent: Rales, Rhonchi, Wheezes - Cardiovascular Exam Cardiovascular Exam: REGULAR RHYTHM, +S1, +S2 - GI/Abdominal Exam GI & Abdominal Exam: Soft, Normal Bowel Sounds. absent: Tenderness - Exam External exam: absent: Lesions, NORMAL EXTERNAL EXAM Additional comments: With Nurse mushroom press operator present, white clumpy discharge noted on vaginal exam - Extremities Exam Extremities Exam: Normal Inspection. absent: Pedal Edema - Neurological Exam Neurological Exam: Alert, Awake, Oriented x3 - Psychiatric Exam Psychiatric exam: Normal Affect, Normal Mood - Skin Skin Exam: Normal Color, Warm Assessment and Plan - Assessment and Plan (Free Text) Plan: R/O TIA Pt BIBA on 03/27 with left arm numbness - NIH stroke scale documented as 0 by ED physician at time of admission Dr. Stauffer, Neuro consult: help appreciated - continue Asa/plavix Carotid doppler (03/30/17): Moderate disease on left side, no significant disease on right -f/u EEG to R/o partial complex seizure CT Head (03/27/17): No evidence of acute intracranial hemorrage, mass effect, or midline shift. Brain MRI (03/29/17): No evidence of acute infarction. No acute pathology in brain. Prolactin 35.7 (elevated) CRP 14.57 (elevated) Homocystein 3.5 (low) B12/folate WNL ASA 81 mg PO daily Plavix 75mg PO daily Antivert 12.5 mg PO BID ESPERANZA polysomnogrpahy as OPDX Headache C/o frontal headache at admission, resolved Resolved with Tylenol CAD History of CABG Dr. Clay, Cardio air quality consultant: help appreciated - on antiplatelet therapy Ranolazine 1000 mg PO BID HTN Well controlled Metoprolol 200mg PO Daily Lasix 20mg PO daily Type Two DM Uncontrolled; A1C 11.2 on admission BG elevated throughout course; meds will be adjusted today Levemir increase to 40 units SC HS Novolin 70/30 increase to 15 units SC BID ISS Hyperlipidemia Dr. Clay, Cardio air quality consultant: help appreciated LDL 133, HDL 42, Triglycerides 242 - with comorbidities goal LDL should be <100 at minimum - pt did not tolerate statins due to myalgias; recommends Repatha therapy to be started at his office Crestor 10mg PO HS Lovaza 1 gm PO Daily Yeast Infection Prescription at discharge for OTC Monistat - urged to follow up with PMD for resolution Prophylaxis Lovenox 40 mg SC daily Protonix 20mg PO Daily Disposition: Ready for discharge. To follow up in Dr. Mcelroy's office, tomorrow 2pm. To follow up in [facility] Dr. Bobby's office within one week. Deep Mercado PGY-2 All medical management per Dr. Rubi Mcelroy
[2017-03-30] MEDS: Metoprolol Succinate 200 mg XL Tab PO SCH (10:20)
[2017-03-30] MEDS: Pantoprazole 20 mg EC Tab PO SCH (11:00)
--- NOTE | 2017-03-30 13:24 | PN ---
DATE: 03/30/2017 TIME OF EVALUATION: 07. SUBJECTIVE: Neurological problem, transient ischemic attack. PHYSICAL EXAMINATION VITAL SIGNS: Blood pressure 164/74, mean arterial pressure of 88, respiratory rate of 16, temperature 97.7, pulse rate is 70 and regular. NEUROLOGIC: The patient's mentation is normal. Examination is unchanged compared with my previous examination. 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 She came in for stroke process of being ruled out. Possible transient ischemic attack. Other workup, recent workup all being reviewed and recommendation is placed. The patient is advised to control her sugar as well as weight reduction and the patient should have polysomnogram done which can be done as an outpatient. The patient is neurologically stable. If medically stable, the patient can be discharged and should have a followup visit me as an outpatient. James Stauffer MD
--- NOTE | 2017-03-30 14:23 | VASCLAB ---
PROCEDURE: HISTORY: Dx TIA COMPARISON: Last carotid duplex exam 11/04/2016, abnormal. TECHNIQUE: Grayscale and duplex Doppler evaluation of the cervical carotid and vertebral arteries were performed. The common carotid, carotid bifurcations and cervical Internal Carotid Artery (ICA) and proximal External Carotid Artery (ECA) were evaluated. The vertebral arteries were evaluated for gross patency and flow direction. Report prepared by ELEUTERIO Jett FINDINGS: RIGHT CAROTID ARTERIES: 1. Common Carotid Artery: No significant focal plaque formation of the right common carotid artery. Maximum Peak Systolic velocity: 86 cm/sec: End-diastolic velocity 20 cm/sec. 2. Carotid Bifurcation: plaque formation. Maximum Peak Systolic velocity: 103 cm/sec: End-diastolic velocity 23 cm/sec. 3. Internal Carotid Artery: Plaque description: Calcific 3.1. Proximal Segment: Peak systolic velocity 97 cm/sec: End-diastolic velocity 20 cm/sec - % stenosis 0-15% 3.2. Middle Segment: Peak systolic velocity 108 cm/sec: End-diastolic velocity 36 cm/sec - % stenosis 0-15% 3.3. Distal Segment: Peak systolic velocity 90 cm/sec: End-diastolic velocity 36 cm/sec - % stenosis 0-15% 4. External Carotid Artery: No significant focal plaque formation. Peak systolic velocity 98 cm/sec 5. ICA/CCA Ratio: 1.3 LEFT CAROTID ARTERIES: 1. Common Carotid Artery: No significant focal plaque formation of the left common carotid artery. Maximum Peak Systolic velocity: 89 cm/sec: End-diastolic velocity 18 cm/sec. 2. Carotid Bifurcation: plaque formation. Maximum Peak Systolic velocity: 78 cm/sec: End-diastolic velocity 26 cm/sec. 3. Internal Carotid Artery: Severe calcific plaque formation of the left proximal ICA which results in a hemodynamically significant stenosis. 3.1. Proximal Segment: Peak systolic velocity 224 cm/sec: End-diastolic velocity 75 cm/sec - % stenosis 60-70% 3.2. Middle Segment: Peak systolic velocity 103 cm/sec: End-diastolic velocity 29 cm/sec - % stenosis 0-15% 4. External Carotid Artery: No significant focal plaque formation. Peak systolic velocity 99 cm/sec 5. ICA/CCA Ratio: 3.8 VERTEBRAL ARTERIES: 1. Right Vertebral Artery: The right vertebral artery flow direction is antegrade. 2. Left Vertebral Artery: The left vertebral artery flow direction is antegrade. OTHER FINDINGS: 1. Right Brachial Blood pressure: 125 mmHg. 2. Left Brachial Blood pressure: 120 mmHg. IMPRESSION: RIGHT: Duplex scan does not suggest hemodynamically significant stenosis of the right extracranial carotid arteries. LEFT: Increased velocity at the proximal internal carotid artery, suggesting 60-70% stenosis. No significant changes since last examination on 11/04/2016.
[2017-03-30 15:41] VITALS: BP 131/80; PULSE 74; TEMP 97.9
--- NOTE | 2017-04-01 13:43 | EEG ---
DATE: 03/29/2017 This is a 16-channel electroencephalogram of awake and drowsy adult. During the study, photic stimulation was performed. Hyperventilation was not performed. The resting electroencephalogram consists of 30 to 40 microvolt, alpha activity seen at parietal and occipital leads. Anteriorly, fast activity superimposed with 2 to 3 Hz delta activities seen. Alpha activity is symmetrically attenuated with eye opening. The photic stimulation did not evoke driving response noted at 2 to 20 Hz. Intermittent 2 to 3 Hz delta activities seen, which is consistent with early drowsiness. IMPRESSION: This is a normal electroencephalogram of awake and drowsy adult. During the study, neither electroencephalographic, paroxysmal activities nor focal slowing noted. James Stauffer MD
== END 2017-03-30 18:07 | disposition home or self-care (01) | DRG 832 ==
LOC: C.ER 09:19 → C.9E 11:50 → C.6T 14:44 → OBSVTOIN 03-29 16:53
PROVIDERS: ADMIT Internal Medicine Nephrology; ATTEND Internal Medicine Nephrology
DX: G45.9 Transient cerebral ischemic attack, unspecified (principal); E11.22 Type 2 diabetes mellitus with diabetic chronic kidney disease; N18.9 Chronic kidney disease, unspecified; E11.65 Type 2 diabetes mellitus with hyperglycemia; I65.29 Occlusion and stenosis of unspecified carotid artery; I25.10 Atherosclerotic heart disease of native coronary artery without angina pectoris; I12.9 Hypertensive chronic kidney disease with stage 1 through stage 4 chronic kidney disease, or unspecified chronic kidney disease; E78.00 Pure hypercholesterolemia, unspecified; Z95.1 Presence of aortocoronary bypass graft; F32.9 Major depressive disorder, single episode, unspecified; F41.9 Anxiety disorder, unspecified; J45.909 Unspecified asthma, uncomplicated; G47.33 Obstructive sleep apnea (adult) (pediatric)

== ENCOUNTER 2017-08-02 13:51 | Observation (INO) | payer MEDICAID ==
[2017-08-02 13:51] VITALS: BMI 36.4
--- NOTE | 2017-08-02 15:53 | RAD ---
HISTORY: chest pain COMPARISON: Chest x-ray performed 03/27/17 TECHNIQUE: Chest, one view. FINDINGS: Examination limited by habitus. LUNGS: Suspect mild pulmonary venous congestion. No focal consolidation. Please note that chest x-ray has limited sensitivity for the detection of pulmonary masses. PLEURA: No significant pleural effusion identified. No definite pneumothorax . CARDIOVASCULAR: Median sternotomy wires with evidence of CABG. Heart size appears within normal limits. OSSEOUS STRUCTURES: No acute osseous abnormality identified. VISUALIZED UPPER ABDOMEN: Unremarkable. OTHER FINDINGS: None. IMPRESSION: Examination limited by habitus. Suspect mild pulmonary venous congestion. Correlate clinically.
[2017-08-02 15:55] LABS: BASO % 0.5 % (0.0-2.0); EOS % 0.9 % (0.0-4.0); HEMOGLOBIN 12.9 g/dL (11.0-16.0); LYMPH # 1.3 K/uL (1.0-4.3); LYMPH % 26.6 % (20.0-40.0); MEAN CELL VOLUME 88.2 fL (81.0-99.0); MEAN PLATELET VOLUME 10.2 fL (7.2-11.7); MONO # 0.5 K/uL (0.0-0.8); MONO % 10.6 % (0.0-10.0); NEUT # 2.9 K/uL (1.8-7.0); NEUT % 61.4 % (50.0-75.0); RBC 4.3 Mil/uL (3.80-5.20); RED CELL DISTRIBUTION WIDTH 16.2 % (11.5-14.5); WHITE BLOOD COUNT 4.7 K/uL (4.8-10.8)
[2017-08-02 16:04] LABS: PROTHROMBIN TIME 11.4 SECONDS (9.7-12.2)
[2017-08-02 16:18] LABS: ALB/GLOB RATIO 0.9 (1.0-2.1); ALBUMIN 4.2 g/dL (3.5-5.0); ALT/SGPT 50 U/L (9-52); AST/SGOT 44 U/L (14-36); BLOOD UREA NITROGEN 18 mg/dL (7-17); CALCIUM 9.1 mg/dl (8.6-10.4); GFR AFRICAN-AMERICAN > 60; GFR NON-AFRICAN AMERICAN > 60
[2017-08-02 16:27] LABS: B-TYPE NATRIURETIC PEPTIDE 258 pg/mL (0-900)
--- NOTE | 2017-08-02 17:58 | C.PDOC ---
History Of Present Illness Pt states she called her practical nursing faculty (Dr. Bobby) stating that she has been having chest pains and he instructed her to come to the ED for evaluation. Time Seen by Provider: 08/02/17 14:28 Chief Complaint (Nursing): Chest Pain History Per: Patient Onset/Duration Of Symptoms: Days (3), Intermittent Episodes Current Symptoms Are (Timing): Still Present Severity: Moderate Quality: "Pain" Associated Symptoms: Nausea, Dyspnea, Diaphoresis. denies: Syncope Modifying Factors: Other Indicated Below Alleviating Factors: None Additional History Per: Prior Records Past Medical History Reviewed: Historical Data, Nursing Documentation, Vital Signs Vital Signs: Last Vital Signs Temp 97.8 F 08/02/17 13:59 Pulse 95 H 08/02/17 13:59 Resp 20 08/02/17 13:59 BP 117/78 08/02/17 13:59 Pulse Ox 99 08/02/17 13:59 - Medical History PMH: Anxiety, Asthma, CAD, Cardia Arrhythmia, Depression, Diabetes, Gastritis, Gastrointestinal Ulcer, Gall Bladder Disease, HTN, Hypercholesterolemia, Chronic Kidney Disease, Sleep Apnea, TIA Surgical History: CABG (september 2008 x4), Cholecystectomy, Coronary Stent (9 stents) - [facility] Procedures APPLICATION OF SPLINT (06/09/14) CORONAR ARTERIOGR-2 CATH (12/14/14) DILATION OF 1 COR ART WITH DRUG-ELUT INTRALUM, PERC APPROACH (05/26/15) DILATION OF CORONARY ARTERY, ONE SITE, PERCUTANEOUS APPROACH (03/04/16) FLUOROSCOPY OF LEFT HEART USING LOW OSMOLAR CONTRAST (05/26/15) FLUOROSCOPY OF SINGLE CORONARY ARTERY USING L OSM CONTRAST (05/26/15) INFLUENZA VACCINATION (05/08/14) LEFT HEART CARDIAC CATH (12/14/14) LT HEART ANGIOCARDIOGRAM (12/14/14) MEASURE OF CARDIAC SAMPL & PRESSURE, L HEART, PERC APPROACH (03/04/16) OTHER ENDOSCOPY OF SM INTEST (01/21/14) PLAIN RADIOGRAPHY OF LEFT HEART USING OTHER CONTRAST (03/04/16) PLAIN RADIOGRAPHY OF MULT COR ART USING OTH CONTRAST (03/04/16) TETANUS TOXOID ADMINIST (06/09/14) TRANSFUSE NONAUT RED BLOOD CELLS IN PERIPH VEIN, PERC (03/30/16) VACCINATION NEC (05/08/14) Family History: States: Unknown Family Hx - Social History Hx Tobacco Use: No Hx Alcohol Use: No Hx Substance Use: No - Immunization History Hx Tetanus Toxoid Vaccination: Yes (06/09/14) Hx Influenza Vaccination: Yes (2016) Hx Pneumococcal Vaccination: Yes Review Of Systems Except As Marked, All Systems Reviewed And Found Negative. Constitutional: Negative for: Fever, Weakness Cardiovascular: Positive for: Chest Pain Respiratory: Negative for: Hemoptysis Gastrointestinal: Negative for: Vomiting, Abdominal Pain Musculoskeletal: Negative for: Neck Pain, Leg Pain Neurological: Negative for: Weakness, Numbness Physical Exam - Physical Exam Appears: Non-toxic, No Acute Distress Skin: Normal Color, Warm, Dry Head: Atraumatic, Normacephalic Eye(s): bilateral: PERRL, EOMI Neck: Normal ROM, Supple Cardiovascular: Rhythm Regular Respiratory: Normal Breath Sounds, No Accessory Muscle Use Gastrointestinal/Abdominal: Soft, No Tenderness Extremity: Normal ROM, No Calf Tenderness Neurological/Psych: Oriented x3, Normal Motor, Normal Sensation ED Course And Treatment - Laboratory Results Result Diagrams: 08/02/17 15:50 08/02/17 15:50 Interpretation Of Abnormal: Hyperglycemia. ECG: Interpreted By Me, Viewed By Me ECG Rhythm: Sinus Rhythm, Nonspecific Changes Rate From EC O2 Sat by Pulse Oximetry: 99 Pulse Ox Interpretation: Normal - Radiology CXR: Viewed By Me, Read By Radiologist CXR Interpretation: Yes: No Acute Disease Progress Note: Pt states she already took her Aspirin and Plavix today. - Physician Consult Information Physician Contacted: Siri Clay Outcome Of Conversation: He did not call back yet. Disposition Discussed With : Spencer Mcelroy Comment: He accepted pt on his service. Doctor Will See Patient In The: Hospital Counseled Patient/Family Regarding: Studies Performed, Diagnosis - Disposition Disposition: HOSPITALIZED Disposition Time: 18:04 Condition: FAIR - POA Present On Arrival: Poor Glycemic Control - Clinical Impression Clinical Impression: Chest pain
[2017-08-02 19:18] LABS: SQUAMOUS EPITHIAL 1 /hpf (0-5); URINE BACTERIA MANY (<OCC); URINE BILIRUBIN NEGATIVE (NEGATIVE); URINE BLOOD NEGATIVE (NEGATIVE); URINE CLARITY Hazy (Clear); URINE COLOR Yellow (YELLOW); URINE GLUCOSE (UA) 3+ mg/dL (Normal); URINE NITRATE NEGATIVE (NEGATIVE); URINE PROTEIN NEGATIVE (NEGATIVE); URINE UROBILINOGEN NORMAL mg/dL (0.2-1.0)
[2017-08-02 19:19] LABS: URINE LEUKOCYTE ESTERASE 3+ Leu/uL (Negative)
--- NOTE | 2017-08-02 19:37 | CP.PCM.HP ---
Past Patient History - Infectious Disease Hx of Infectious Diseases: None - Past Medical History & Family History Past Medical History?: Yes - Past Social History Smoking Status: Never Smoked - CARDIAC Hx Cardia Arrhythmia: Yes Hx Hypercholesterolemia: Yes Hx Hypertension: Yes - PULMONARY Hx Asthma: Yes Hx Sleep Apnea: Yes - NEUROLOGICAL Hx Transient Ischemic Attacks (TIA): Yes - HEENT Hx HEENT Problems: No - RENAL Hx Chronic Kidney Disease: Yes - ENDOCRINE/METABOLIC Hx Endocrine Disorders: Yes Hx Diabetes Mellitus Type 1: Yes - HEMATOLOGICAL/ONCOLOGICAL Hx Blood Disorders: Yes - INTEGUMENTARY Hx Dermatological Problems: Yes Hx Psoriasis: Yes (mild) - MUSCULOSKELETAL/RHEUMATOLOGICAL Hx Musculoskeletal Disorders: No Hx Falls: No - GASTROINTESTINAL Hx Gall Bladder Disease: Yes Hx Gastritis: Yes - GENITOURINARY/GYNECOLOGICAL Hx Genitourinary Disorders: No - PSYCHIATRIC Hx Anxiety: Yes Hx Depression: Yes Hx Substance Use: No - SURGICAL HISTORY Hx Cholecystectomy: Yes Hx Coronary Artery Bypass Graft: Yes (september 2008 x4) Hx Coronary Stent: Yes (9 stents) - ANESTHESIA Hx Anesthesia: Yes Hx Anesthesia Reactions: No Hx Malignant Hyperthermia: No Meds Allergies/Adverse Reactions: Allergies Allergy/AdvReac Type Severity Reaction Status Date / Time iodine Allergy Severe URTICARIA Verified 03/27/17 09:24 latex Allergy Severe URTICARIA Verified 03/27/17 09:24 seafood Allergy Severe URTICARIA Uncoded 03/27/16 16:33 Physical Exam - Constitutional Appears: Well - Head Exam Head Exam: ATRAUMATIC, NORMAL INSPECTION, NORMOCEPHALIC - Eye Exam Eye Exam: EOMI, Normal appearance, PERRL Pupil Exam: NORMAL ACCOMODATION, PERRL - ENT Exam ENT Exam: Mucous Membranes Moist, Normal Exam - Neck Exam Neck exam: Positive for: Normal Inspection - Respiratory Exam Respiratory Exam: Decreased Breath Sounds - Cardiovascular Exam Cardiovascular Exam: REGULAR RHYTHM, +S1, +S2 - GI/Abdominal Exam GI & Abdominal Exam: Diminished Bowel Sounds, Soft - Rectal Exam Rectal Exam: Deferred Results - Vital Signs Recent Vital Signs: Last Vital Signs Temp 97.8 F 08/02/17 13:59 Pulse 96 H 08/02/17 18:32 Resp 20 08/02/17 18:32 BP 156/72 H 08/02/17 18:32 Pulse Ox 99 08/02/17 18:32 - Labs Result Diagrams: 08/02/17 15:50 08/02/17 15:50 Labs: Laboratory Results - last 24 hr 08/02/17 08/02/17 08/02/17 15:50 15:50 15:50 WBC 4.7 L RBC 4.30 Hgb 12.9 Hct 37.9 MCV 88.2 D MCH 30.0 MCHC 34.0 RDW 16.2 H Plt Count 187 MPV 10.2 Neut % (Auto) 61.4 Lymph % (Auto) 26.6 [place] % (Auto) 10.6 H Eos % (Auto) 0.9 Baso % (Auto) 0.5 Neut # (Auto) 2.9 Lymph # (Auto) 1.3 [place] # (Auto) 0.5 Eos # (Auto) 0.0 Baso # (Auto) 0.0 PT 11.4 INR 1.0 APTT 26 Sodium 129 L Potassium 3.9 Chloride 94 L Carbon Dioxide 21 L Anion Gap 19 BUN 18 H Creatinine 0.7 Est GFR ( Amer) > 60 Est GFR (Non-Af Amer) > 60 Random Glucose 396 H Calcium 9.1 Total Bilirubin 0.7 AST 44 H D ALT 50 Alkaline Phosphatase 96 Troponin I 0.0330 NT-Pro-B Natriuret Pep 258 Total Protein 8.6 H Albumin 4.2 Globulin 4.4 H Albumin/Globulin Ratio 0.9 L Urine Color Urine Clarity Urine pH Ur Specific [place] Urine Protein Urine Glucose (UA) Urine Ketones Urine Blood Urine Nitrate Urine Bilirubin Urine Urobilinogen Ur Leukocyte Esterase Urine WBC (Auto) Urine RBC (Auto) Ur Squamous Epith Cells Urine Bacteria 08/02/17 19:05 WBC RBC Hgb Hct MCV MCH MCHC RDW Plt Count MPV Neut % (Auto) Lymph % (Auto) [place] % (Auto) Eos % (Auto) Baso % (Auto) Neut # (Auto) Lymph # (Auto) [place] # (Auto) Eos # (Auto) Baso # (Auto) PT INR APTT Sodium Potassium Chloride Carbon Dioxide Anion Gap BUN Creatinine Est GFR ( Amer) Est GFR (Non-Af Amer) Random Glucose Calcium Total Bilirubin AST ALT Alkaline Phosphatase Troponin I NT-Pro-B Natriuret Pep Total Protein Albumin Globulin Albumin/Globulin Ratio Urine Color Yellow Urine Clarity Hazy Urine pH 5.0 Ur Specific [place] 1.012 Urine Protein Negative Urine Glucose (UA) 3+ H Urine Ketones Negative Urine Blood Negative Urine Nitrate Negative Urine Bilirubin Negative Urine Urobilinogen Normal Ur Leukocyte Esterase 3+ H Urine WBC (Auto) 95 H Urine RBC (Auto) < 1 Ur Squamous Epith Cells 1 Urine Bacteria Many H
[2017-08-02] MEDS ORDERED: Insulin Detemir 100 units/ml Vial (Levemir) SC SCH (22:00)
[2017-08-03 01:14] LABS: CK-MB 2.23 ng/mL (0.0-3.38); TROPONIN I 0.037 ng/mL (0.00-0.120)
[2017-08-03 02:29] VITALS: RESP 20
[2017-08-03] MEDS: (Novolin 70/30) NPH/Regular 70/30 Units/ml 10 ml vial SC SCH ×2 (08:41→17:47)
[2017-08-03] MEDS ORDERED: Perflutren Lipid Microsphere 1.5 ML SUS IV ONE (09:10)
[2017-08-03] MEDS ORDERED: Enoxaparin 40 mg Syringe SC SCH (10:00)
[2017-08-03] MEDS ORDERED: Multiple Vitamins Tab PO SCH (10:00)
[2017-08-03] MEDS ORDERED: Omega-3-Acid Ethyl Esters 1 GM Cap PO SCH (10:00)
[2017-08-03] MEDS: Ranolazine 500 mg Extended Release Tablets PO SCH ×2 (10:38→17:21)
[2017-08-03 12:24] LABS: CK-MB 1.38 ng/mL (0.0-3.38)
[2017-08-03 13:23] LABS: TROPONIN I 0.034 ng/mL (0.00-0.120)
--- NOTE | 2017-08-03 14:13 | CP.PCM.PN ---
Subjective - Date & Time of Evaluation Date of Evaluation: 08/03/17 Time of Evaluation: 14:00 - Subjective Subjective: progress note. attending- fatuma hutton pt seen and examined at bedside. no acute distress. no fevers, chills, vomiting , diarrhea. cardiac w/u in progress. Objective - Vital Signs/Intake and Output Vital Signs (last 24 hours): Temp Pulse Resp BP Pulse Ox 97.4 F L 83 20 141/80 97 08/03/17 08:16 08/03/17 11:26 08/03/17 08:16 08/03/17 10:38 08/03/17 08:16 Intake and Output: 08/03/17 08/03/17 06:59 18:59 Intake Total 150 Balance 150 - Medications Medications: Current Medications Acetaminophen (Tylenol 325mg Tab) 650 mg PO Q8 PRN PRN Reason: pain 1-10 Last Admin: 08/02/17 23:06 Dose: 650 mg Aspirin (Ecotrin) 81 mg PO DAILY [facility] Last Admin: 08/03/17 10:38 Dose: 81 mg Clopidogrel Bisulfate (Plavix) 75 mg PO DAILY [facility] Last Admin: 08/03/17 10:38 Dose: 75 mg Docusate Sodium (Colace) 100 mg PO DAILY [facility] Enoxaparin Sodium (Lovenox) 40 mg SC DAILY [facility] Last Admin: 08/03/17 10:39 Dose: 40 mg Famotidine (Pepcid) 20 mg PO BID [facility] Last Admin: 08/03/17 10:40 Dose: 20 mg Fluoxetine HCl (Prozac) 40 mg PO DAILY [facility] Last Admin: 08/03/17 10:39 Dose: 40 mg Furosemide (Lasix) 20 mg PO DAILY [facility] Last Admin: 08/03/17 10:38 Dose: 20 mg Ceftriaxone Sodium 1 gm/ (Sodium Chloride) 100 mls @ 100 mls/hr IVPB DAILY [facility] Insulin Detemir (Levemir) 35 unit SC HS [facility] Last Admin: 08/02/17 22:35 Dose: 35 unit Insulin Human Isoph/Insulin Regular (Novolin 70/30 (70/30 Units/Ml) 10 Ml) 10 units SC BIDAC [facility] Last Admin: 08/03/17 08:41 Dose: 10 units Loratadine (Claritin) 10 mg PO DAILY [facility] Last Admin: 08/03/17 10:38 Dose: 10 mg Multivitamins (Hexavitamin) 1 tab PO DAILY [facility] Last Admin: 08/03/17 10:38 Dose: 1 tab Kilqi-5-Shzo Ethyl Esters (Lovaza) 1 gm PO DAILY [facility] Last Admin: 08/03/17 10:41 Dose: 1 gm Ranolazine (Ranexa) 1,000 mg PO BID [facility] Last Admin: 08/03/17 10:38 Dose: 1,000 mg - Labs Labs: 08/02/17 15:50 08/02/17 15:50 PT 11.4 SECONDS (9.7-12.2) 08/02/17 15:50 INR 1.0 08/02/17 15:50 APTT 26 SECONDS (21-34) 08/02/17 15:50 - Constitutional Appears: Non-toxic, No Acute Distress - Head Exam Head Exam: ATRAUMATIC, NORMAL INSPECTION, NORMOCEPHALIC - Eye Exam Eye Exam: EOMI - ENT Exam ENT Exam: Mucous Membranes Moist - Neck Exam Neck Exam: Full ROM - Respiratory Exam Respiratory Exam: NORMAL BREATHING PATTERN. absent: Respiratory Distress - Cardiovascular Exam Cardiovascular Exam: +S1, +S2 - GI/Abdominal Exam GI & Abdominal Exam: Soft, Normal Bowel Sounds. absent: Tenderness - Extremities Exam Extremities Exam: Full ROM, Normal Inspection - Back Exam Back Exam: NORMAL INSPECTION - Neurological Exam Neurological Exam: Alert, Awake, Oriented x3 - Psychiatric Exam Psychiatric exam: Normal Affect, Normal Mood - Skin Skin Exam: Dry, Intact, Normal Color, Warm Assessment and Plan - Assessment and Plan (Free Text) Assessment: this is a 51 yo female with 1. chest pain, r/o acs -asa 81 daily -crestor daily -cardio consult. recs appreciated -echo pending -ekg -continue ranexa 2. hx of diabetes -insulin levemir 35 units hs -insulin 70/30 3. dysuria/uti -start iv rocephin 4. gi/dvt ppx -protonix -scds dw dr. hutton
[2017-08-03 15:57] VITALS: BP 132/79; TEMP 97.7; O2SAT 96
[2017-08-03 15:59] VITALS: PULSE 96
--- NOTE | 2017-08-03 17:05 | CP.PCM.PN ---
Subjective - Date & Time of Evaluation Date of Evaluation: 08/03/17 Time of Evaluation: 11:00 - Subjective Subjective: clinically same Objective - Vital Signs/Intake and Output Vital Signs (last 24 hours): Temp Pulse Resp BP Pulse Ox 97.7 F 96 H 20 132/79 96 08/03/17 15:15 08/03/17 15:58 08/03/17 15:15 08/03/17 15:15 08/03/17 15:15 Intake and Output: 08/03/17 08/03/17 06:59 18:59 Intake Total 150 Balance 150 - Medications Medications: Current Medications Acetaminophen (Tylenol 325mg Tab) 650 mg PO Q8 PRN PRN Reason: pain 1-10 Last Admin: 08/02/17 23:06 Dose: 650 mg Aspirin (Ecotrin) 81 mg PO DAILY [facility] Last Admin: 08/03/17 10:38 Dose: 81 mg Clopidogrel Bisulfate (Plavix) 75 mg PO DAILY [facility] Last Admin: 08/03/17 10:38 Dose: 75 mg Docusate Sodium (Colace) 100 mg PO DAILY [facility] Last Admin: 08/03/17 14:28 Dose: 100 mg Enoxaparin Sodium (Lovenox) 40 mg SC DAILY [facility] Last Admin: 08/03/17 10:39 Dose: 40 mg Famotidine (Pepcid) 20 mg PO BID [facility] Last Admin: 08/03/17 10:40 Dose: 20 mg Fluoxetine HCl (Prozac) 40 mg PO DAILY [facility] Last Admin: 08/03/17 10:39 Dose: 40 mg Furosemide (Lasix) 20 mg PO DAILY [facility] Last Admin: 08/03/17 10:38 Dose: 20 mg Ceftriaxone Sodium 1 gm/ (Sodium Chloride) 100 mls @ 100 mls/hr IVPB DAILY [facility] Last Admin: 08/03/17 14:28 Dose: 100 mls/hr Insulin Detemir (Levemir) 35 unit SC HS [facility] Last Admin: 08/02/17 22:35 Dose: 35 unit Insulin Human Isoph/Insulin Regular (Novolin 70/30 (70/30 Units/Ml) 10 Ml) 10 units SC BIDAC [facility] Last Admin: 08/03/17 08:41 Dose: 10 units Loratadine (Claritin) 10 mg PO DAILY [facility] Last Admin: 08/03/17 10:38 Dose: 10 mg Multivitamins (Hexavitamin) 1 tab PO DAILY [facility] Last Admin: 08/03/17 10:38 Dose: 1 tab [id number] Ethyl Esters (Lovaza) 1 gm PO DAILY [facility] Last Admin: 08/03/17 10:41 Dose: 1 gm Ranolazine (Ranexa) 1,000 mg PO BID [facility] Last Admin: 08/03/17 10:38 Dose: 1,000 mg Rosuvastatin Calcium (Crestor) 2.5 mg PO HS [facility] - Labs Labs: 08/02/17 15:50 08/02/17 15:50 PT 11.4 SECONDS (9.7-12.2) 08/02/17 15:50 INR 1.0 08/02/17 15:50 APTT 26 SECONDS (21-34) 08/02/17 15:50 - Constitutional Appears: Well - Head Exam Head Exam: ATRAUMATIC, NORMAL INSPECTION, NORMOCEPHALIC - Eye Exam Eye Exam: EOMI, Normal appearance, PERRL Pupil Exam: NORMAL ACCOMODATION, PERRL - ENT Exam ENT Exam: Mucous Membranes Moist, Normal Exam - Neck Exam Neck Exam: Full ROM, Normal Inspection. absent: Lymphadenopathy - Respiratory Exam Respiratory Exam: Decreased Breath Sounds - Cardiovascular Exam Cardiovascular Exam: REGULAR RHYTHM, +S1, +S2 - GI/Abdominal Exam GI & Abdominal Exam: Soft, Diminished Bowel Sounds - Rectal Exam Rectal Exam: Deferred
--- NOTE | 2017-08-03 17:20 | CP.PCM.CON ---
Past Patient History - Infectious Disease Hx of Infectious Diseases: None - Past Medical History & Family History Past Medical History?: Yes - Past Social History Smoking Status: Never Smoked - CARDIAC Hx Cardia Arrhythmia: Yes Hx Hypercholesterolemia: Yes Hx Hypertension: Yes - PULMONARY Hx Asthma: Yes Hx Sleep Apnea: Yes - NEUROLOGICAL Hx Transient Ischemic Attacks (TIA): Yes - HEENT Hx HEENT Problems: No - RENAL Hx Chronic Kidney Disease: Yes - ENDOCRINE/METABOLIC Hx Endocrine Disorders: Yes Hx Diabetes Mellitus Type 1: Yes - HEMATOLOGICAL/ONCOLOGICAL Hx Blood Disorders: Yes - INTEGUMENTARY Hx Dermatological Problems: Yes Hx Psoriasis: Yes (mild) - MUSCULOSKELETAL/RHEUMATOLOGICAL Hx Musculoskeletal Disorders: No Hx Falls: Yes - GASTROINTESTINAL Hx Gall Bladder Disease: Yes Hx Gastritis: Yes - GENITOURINARY/GYNECOLOGICAL Hx Genitourinary Disorders: No - PSYCHIATRIC Hx Anxiety: Yes Hx Depression: Yes Hx Substance Use: No - SURGICAL HISTORY Hx Cholecystectomy: Yes Hx Coronary Artery Bypass Graft: Yes (september 2008 x4) Hx Coronary Stent: Yes (9 stents) - ANESTHESIA Hx Anesthesia: Yes Hx Anesthesia Reactions: No Hx Malignant Hyperthermia: No Has any member of the family had a problem w/ anesthesia?: Yes (Niece) Meds Allergies/Adverse Reactions: Allergies Allergy/AdvReac Type Severity Reaction Status Date / Time iodine Allergy Severe URTICARIA Verified 03/27/17 09:24 latex Allergy Severe URTICARIA Verified 03/27/17 09:24 seafood Allergy Severe URTICARIA Uncoded 03/27/16 16:33 - Medications Medications: Current Medications Acetaminophen (Tylenol 325mg Tab) 650 mg PO Q8 PRN PRN Reason: pain 1-10 Last Admin: 08/02/17 23:06 Dose: 650 mg Aspirin (Ecotrin) 81 mg PO DAILY [facility] Last Admin: 08/03/17 10:38 Dose: 81 mg Clopidogrel Bisulfate (Plavix) 75 mg PO DAILY [facility] Last Admin: 08/03/17 10:38 Dose: 75 mg Docusate Sodium (Colace) 100 mg PO DAILY [facility] Last Admin: 08/03/17 14:28 Dose: 100 mg Enoxaparin Sodium (Lovenox) 40 mg SC DAILY [facility] Last Admin: 08/03/17 10:39 Dose: 40 mg Famotidine (Pepcid) 20 mg PO BID [facility] Last Admin: 08/03/17 10:40 Dose: 20 mg Fluoxetine HCl (Prozac) 40 mg PO DAILY [facility] Last Admin: 08/03/17 10:39 Dose: 40 mg Furosemide (Lasix) 20 mg PO DAILY [facility] Last Admin: 08/03/17 10:38 Dose: 20 mg Ceftriaxone Sodium 1 gm/ (Sodium Chloride) 100 mls @ 100 mls/hr IVPB DAILY [facility] Last Admin: 08/03/17 14:28 Dose: 100 mls/hr Insulin Detemir (Levemir) 35 unit SC HS [facility] Last Admin: 08/02/17 22:35 Dose: 35 unit Insulin Human Isoph/Insulin Regular (Novolin 70/30 (70/30 Units/Ml) 10 Ml) 10 units SC BIDAC [facility] Last Admin: 08/03/17 08:41 Dose: 10 units Loratadine (Claritin) 10 mg PO DAILY [facility] Last Admin: 08/03/17 10:38 Dose: 10 mg Multivitamins (Hexavitamin) 1 tab PO DAILY [facility] Last Admin: 08/03/17 10:38 Dose: 1 tab [id number] Ethyl Esters (Lovaza) 1 gm PO DAILY [facility] Last Admin: 08/03/17 10:41 Dose: 1 gm Ranolazine (Ranexa) 1,000 mg PO BID [facility] Last Admin: 08/03/17 10:38 Dose: 1,000 mg Rosuvastatin Calcium (Crestor) 2.5 mg PO [facility] Results - Vital Signs Recent Vital Signs: Last Vital Signs Temp 97.7 F 08/03/17 15:15 Pulse 96 H 08/03/17 15:58 Resp 20 08/03/17 15:15 BP 132/79 08/03/17 15:15 Pulse Ox 96 08/03/17 15:15 - Labs Result Diagrams: 08/02/17 15:50 08/02/17 15:50 Labs: Laboratory Results - last 24 hr 08/02/17 08/02/17 08/03/17 19:05 22:16 00:43 POC Glucose (mg/dL) 383 H Total Creatine Kinase 94 CK-MB (Mass) 2.23 Troponin I 0.0370 Urine Color Yellow Urine Clarity Hazy Urine pH 5.0 Ur Specific [place] 1.012 Urine Protein Negative Urine Glucose (UA) 3+ H Urine Ketones Negative Urine Blood Negative Urine Nitrate Negative Urine Bilirubin Negative Urine Urobilinogen Normal Ur Leukocyte Esterase 3+ H Urine WBC (Auto) 95 H Urine RBC (Auto) < 1 Ur Squamous Epith Cells 1 Urine Bacteria Many H 08/03/17 08/03/17 08/03/17 06:30 11:13 11:38 POC Glucose (mg/dL) 314 H 366 H Total Creatine Kinase 80 CK-MB (Mass) 1.38 Troponin I 0.0340 Urine Color Urine Clarity Urine pH Ur Specific [place] Urine Protein Urine Glucose (UA) Urine Ketones Urine Blood Urine Nitrate Urine Bilirubin Urine Urobilinogen Ur Leukocyte Esterase Urine WBC (Auto) Urine RBC (Auto) Ur Squamous Epith Cells Urine Bacteria 08/03/17 16:40 POC Glucose (mg/dL) 389 H Total Creatine Kinase CK-MB (Mass) Troponin I Urine Color Urine Clarity Urine pH Ur Specific [place] Urine Protein Urine Glucose (UA) Urine Ketones Urine Blood Urine Nitrate Urine Bilirubin Urine Urobilinogen Ur Leukocyte Esterase Urine WBC (Auto) Urine RBC (Auto) Ur Squamous Epith Cells Urine Bacteria
--- NOTE | 2017-08-03 17:20 | CP.PCM.CON ---
History of Present Illness - History of Present Illness History of Present Illness: patient seen/examined. full consult to follow. stable for discharge. will schedule outpatient stress test. Past Patient History - Infectious Disease Hx of Infectious Diseases: None - Past Medical History & Family History Past Medical History?: Yes - Past Social History Smoking Status: Never Smoked - CARDIAC Hx Cardia Arrhythmia: Yes Hx Hypercholesterolemia: Yes Hx Hypertension: Yes - PULMONARY Hx Asthma: Yes Hx Sleep Apnea: Yes - NEUROLOGICAL Hx Transient Ischemic Attacks (TIA): Yes - HEENT Hx HEENT Problems: No - RENAL Hx Chronic Kidney Disease: Yes - ENDOCRINE/METABOLIC Hx Endocrine Disorders: Yes Hx Diabetes Mellitus Type 1: Yes - HEMATOLOGICAL/ONCOLOGICAL Hx Blood Disorders: Yes - INTEGUMENTARY Hx Dermatological Problems: Yes Hx Psoriasis: Yes (mild) - MUSCULOSKELETAL/RHEUMATOLOGICAL Hx Musculoskeletal Disorders: No Hx Falls: Yes - GASTROINTESTINAL Hx Gall Bladder Disease: Yes Hx Gastritis: Yes - GENITOURINARY/GYNECOLOGICAL Hx Genitourinary Disorders: No - PSYCHIATRIC Hx Anxiety: Yes Hx Depression: Yes Hx Substance Use: No - SURGICAL HISTORY Hx Cholecystectomy: Yes Hx Coronary Artery Bypass Graft: Yes (september 2008 x4) Hx Coronary Stent: Yes (9 stents) - ANESTHESIA Hx Anesthesia: Yes Hx Anesthesia Reactions: No Hx Malignant Hyperthermia: No Has any member of the family had a problem w/ anesthesia?: Yes (Niece) Meds Allergies/Adverse Reactions: Allergies Allergy/AdvReac Type Severity Reaction Status Date / Time iodine Allergy Severe URTICARIA Verified 03/27/17 09:24 latex Allergy Severe URTICARIA Verified 03/27/17 09:24 seafood Allergy Severe URTICARIA Uncoded 03/27/16 16:33 - Medications Medications: Current Medications Acetaminophen (Tylenol 325mg Tab) 650 mg PO Q8 PRN PRN Reason: pain 1-10 Last Admin: 08/02/17 23:06 Dose: 650 mg Aspirin (Ecotrin) 81 mg PO DAILY [facility] Last Admin: 08/03/17 10:38 Dose: 81 mg Clopidogrel Bisulfate (Plavix) 75 mg PO DAILY [facility] Last Admin: 08/03/17 10:38 Dose: 75 mg Docusate Sodium (Colace) 100 mg PO DAILY [facility] Last Admin: 08/03/17 14:28 Dose: 100 mg Enoxaparin Sodium (Lovenox) 40 mg SC DAILY [facility] Last Admin: 08/03/17 10:39 Dose: 40 mg Famotidine (Pepcid) 20 mg PO BID [facility] Last Admin: 08/03/17 10:40 Dose: 20 mg Fluoxetine HCl (Prozac) 40 mg PO DAILY [facility] Last Admin: 08/03/17 10:39 Dose: 40 mg Furosemide (Lasix) 20 mg PO DAILY [facility] Last Admin: 08/03/17 10:38 Dose: 20 mg Ceftriaxone Sodium 1 gm/ (Sodium Chloride) 100 mls @ 100 mls/hr IVPB DAILY [facility] Last Admin: 08/03/17 14:28 Dose: 100 mls/hr Insulin Detemir (Levemir) 35 unit SC [facility] Last Admin: 08/02/17 22:35 Dose: 35 unit Insulin Human Isoph/Insulin Regular (Novolin 70/30 (70/30 Units/Ml) 10 Ml) [facility] Last Admin: 08/03/17 08:41 Dose: 10 units Loratadine (Claritin) 10 mg PO DAILY [facility] Last Admin: 08/03/17 10:38 Dose: 10 mg Multivitamins (Hexavitamin) 1 tab PO DAILY [facility] Last Admin: 08/03/17 10:38 Dose: 1 tab Mpejy-[id number] Ethyl Esters (Lovaza) 1 gm PO DAILY [facility] Last Admin: 08/03/17 10:41 Dose: 1 gm Ranolazine (Ranexa) 1,000 mg PO BID [facility] Last Admin: 08/03/17 10:38 Dose: 1,000 mg Rosuvastatin Calcium (Crestor) 2.5 mg PO [facility] Results - Vital Signs Recent Vital Signs: Last Vital Signs Temp 97.7 F 08/03/17 15:15 Pulse 96 H 08/03/17 15:58 Resp 20 08/03/17 15:15 BP 132/79 08/03/17 15:15 Pulse Ox 96 08/03/17 15:15 - Labs Result Diagrams: 08/02/17 15:50 08/02/17 15:50 Labs: Laboratory Results - last 24 hr 08/02/17 08/02/17 08/03/17 19:05 22:16 00:43 POC Glucose (mg/dL) 383 H Total Creatine Kinase 94 CK-MB (Mass) 2.23 Troponin I 0.0370 Urine Color Yellow Urine Clarity Hazy Urine pH 5.0 Ur Specific [place] 1.012 Urine Protein Negative Urine Glucose (UA) 3+ H Urine Ketones Negative Urine Blood Negative Urine Nitrate Negative Urine Bilirubin Negative Urine Urobilinogen Normal Ur Leukocyte Esterase 3+ H Urine WBC (Auto) 95 H Urine RBC (Auto) < 1 Ur Squamous Epith Cells 1 Urine Bacteria Many H 08/03/17 08/03/17 08/03/17 06:30 11:13 11:38 POC Glucose (mg/dL) 314 H 366 H Total Creatine Kinase 80 CK-MB (Mass) 1.38 Troponin I 0.0340 Urine Color Urine Clarity Urine pH Ur Specific [place] Urine Protein Urine Glucose (UA) Urine Ketones Urine Blood Urine Nitrate Urine Bilirubin Urine Urobilinogen Ur Leukocyte Esterase Urine WBC (Auto) Urine RBC (Auto) Ur Squamous Epith Cells Urine Bacteria 08/03/17 16:40 POC Glucose (mg/dL) 389 H Total Creatine Kinase CK-MB (Mass) Troponin I Urine Color Urine Clarity Urine pH Ur Specific [place] Urine Protein Urine Glucose (UA) Urine Ketones Urine Blood Urine Nitrate Urine Bilirubin Urine Urobilinogen Ur Leukocyte Esterase Urine WBC (Auto) Urine RBC (Auto) Ur Squamous Epith Cells Urine Bacteria
[2017-08-03] MEDS ORDERED: Rosuvastatin Calcium 2.5 mg Tab PO SCH (22:00)
--- NOTE | 2017-08-04 16:32 | CARD ---
APPROVED REPORT EKG Measurement Heart [id number] <Conclusion> Normal sinus rhythm Biatrial enlargement Nonspecific ST abnormality Abnormal QRS-T angle, consider primary T wave abnormality Prolonged QT Abnormal ECG
--- NOTE | 2017-08-04 20:41 | CARD ---
APPROVED REPORT EXAM: Two-dimensional and M-mode echocardiogram with Doppler and color Doppler. Other Information Quality : GoodRhythm : INDICATION Cardiac Disease: CAD Chest Pain 2D DIMENSIONS IVSd0.9 (0.7-1.1cm)LVDd5.4 (3.9-5.9cm) PWd0.9 (0.7-1.1cm)LVDs4.0 (2.5-4.0cm) FS (%) 25.7 %LVEF (%)50.1 (>50%) M-Mode DIMENSIONS Left Atrium (MM)4.33 (2.5-4.0cm)Aortic Root3.31 (2.2-3.7cm) Aortic Cusp Exc.2.20 (1.5-2.0cm) Mitral Valve MV E Koidhxgq304.9cm/sMV A Vchqhnxx912.3cm/sE/A ratio1.1 TDI E/Lateral E'0.0E/Medial E'0.0 LEFT VENTRICLE The left ventricle is normal size. There is normal left ventricular wall thickness. Left ventricle systolic function is normal. The Ejection Fraction is 50-55%. There is normal LV segmental wall motion. The left ventricular diastolic function is normal. RIGHT VENTRICLE The right ventricle is normal size. There is normal right ventricular wall thickness. The right ventricular systolic function is normal. ATRIA The left atrium size is normal. The right atrium size is normal. The interatrial septum is intact with no evidence for an atrial septal defect. AORTIC VALVE The aortic valve is normal in structure. No aortic regurgitation is present. There is no aortic valvular stenosis. There is no aortic valvular vegetation. MITRAL VALVE The mitral valve is normal in structure. There is no evidence of mitral valve prolapse. There is no mitral valve stenosis. There is no mitral valve regurgitation noted. TRICUSPID VALVE The tricuspid valve is normal in structure. There is no tricuspid valve regurgitation noted. There is no tricuspid valve prolapse or vegetation. There is no tricuspid valve stenosis. PULMONIC VALVE The pulmonary valve is normal in structure. There is no pulmonic valvular regurgitation. There is no pulmonic valvular stenosis. GREAT VESSELS The aortic root is normal in size. PERICARDIAL EFFUSION There is no significant pericardial effusion. <Conclusion> Left ventricle systolic function is normal. The Ejection Fraction is 50-55%. No aortic regurgitation is present. There is no mitral valve regurgitation noted. There is no tricuspid valve regurgitation noted. There is no pulmonic valvular regurgitation.
== END 2017-08-03 18:47 | disposition home or self-care (01) ==
LOC: C.ER 13:51 → C.9E 18:05 → C.6T 22:27
PROVIDERS: ADMIT Internal Medicine Nephrology; ATTEND Internal Medicine Nephrology
DX: R07.9 Chest pain, unspecified (principal); E78.00 Pure hypercholesterolemia, unspecified; E10.22 Type 1 diabetes mellitus with diabetic chronic kidney disease; Z95.1 Presence of aortocoronary bypass graft; I25.10 Atherosclerotic heart disease of native coronary artery without angina pectoris; G47.30 Sleep apnea, unspecified; J45.909 Unspecified asthma, uncomplicated; I12.9 Hypertensive chronic kidney disease with stage 1 through stage 4 chronic kidney disease, or unspecified chronic kidney disease; Z95.5 Presence of coronary angioplasty implant and graft
CPT/HCPCS: 36415; 71045; 80053; 81001; 82948; 83880; 84484; 85025; 85610; 85730; 87086; 93005; 93306; 96372; 99285; G0378; J0696; J1650

== ENCOUNTER 2017-10-18 20:47 | Emergency (ER) | payer MEDICAID ==
[2017-10-18 20:48] VITALS: BMI 36.4
[2017-10-18 20:55] VITALS: O2SAT 100
[2017-10-18] MEDS ORDERED: Fluorescein 1 mg Ophthalmic Strip OS ONE (21:45)
[2017-10-18] MEDS ORDERED: Tetracaine 0.5% Ophth 2 ML BOTTLE OS ONE (21:45)
[2017-10-18] MEDS ORDERED: Fluorescein 1 mg Ophthalmic Strip ONE (21:47)
[2017-10-18] MEDS ORDERED: Tetracaine 0.5% Ophth (OR ONLY) ONE (21:48)
[2017-10-18] MEDS ORDERED: Sodium Chloride 0.9% 1,000 ML IV ONE (22:07)
--- NOTE | 2017-10-18 22:07 | C.PDOC ---
History Of Present Illness 51 year old female w/PMHx of IDDM presents to the ED for evaluation of left eye pain, redness, light sensitivity which gradually developed since yesterday. Patient denies fever, chills, recent illness, denies headache, blurry vision, foreign body sensation, double vision, floaters, denies pain on left eye movement, denies known trauma or injury, contact use, denies dizziness, CP, SOB , dyspnea, palpitation, abd. pain, N/V/D, back pain, UTI sx, rash. Ambulate to Ed for evaluation, not in any apparent distress. Time Seen by Provider: 10/18/17 21:20 Chief Complaint (Nursing): Eye Problem History Per: Patient History/Exam Limitations: no limitations Onset/Duration Of Symptoms: Hrs, Gradual Current Symptoms Are (Timing): Still Present Quality: "Pain" Associated Symptoms: Other (light sensitivity ). denies: FB Sensation Additional History Per: Patient Past Medical History Reviewed: Historical Data, Nursing Documentation, Vital Signs Vital Signs: Last Vital Signs Temp 98.1 F 10/18/17 20:52 Pulse 65 10/18/17 20:52 Resp 20 10/18/17 20:52 BP 155/85 H 10/18/17 20:52 Pulse Ox 100 10/18/17 22:28 - Medical History PMH: Anxiety, Asthma, CAD, Cardia Arrhythmia, Depression, Diabetes, Gastritis, Gastrointestinal Ulcer, Gall Bladder Disease, HTN, Hypercholesterolemia, Chronic Kidney Disease, Sleep Apnea, TIA Surgical History: CABG (september 2008 x4), Cholecystectomy, Coronary Stent (9 stents) - [facility] Procedures APPLICATION OF SPLINT (06/09/14) CORONAR ARTERIOGR-2 CATH (12/14/14) DILATION OF 1 COR ART WITH DRUG-ELUT INTRALUM, PERC APPROACH (05/26/15) DILATION OF CORONARY ARTERY, ONE SITE, PERCUTANEOUS APPROACH (03/04/16) FLUOROSCOPY OF LEFT HEART USING LOW OSMOLAR CONTRAST (05/26/15) FLUOROSCOPY OF SINGLE CORONARY ARTERY USING L OSM CONTRAST (05/26/15) INFLUENZA VACCINATION (05/08/14) LEFT HEART CARDIAC CATH (12/14/14) LT HEART ANGIOCARDIOGRAM (12/14/14) MEASURE OF CARDIAC SAMPL & PRESSURE, L HEART, PERC APPROACH (03/04/16) OTHER ENDOSCOPY OF SM INTEST (01/21/14) PLAIN RADIOGRAPHY OF LEFT HEART USING OTHER CONTRAST (03/04/16) PLAIN RADIOGRAPHY OF MULT COR ART USING OTH CONTRAST (03/04/16) TETANUS TOXOID ADMINIST (06/09/14) TRANSFUSE NONAUT RED BLOOD CELLS IN PERIPH VEIN, PERC (03/30/16) VACCINATION NEC (05/08/14) Family History: States: Unknown Family Hx - Social History Hx Tobacco Use: No Hx Alcohol Use: No Hx Substance Use: No - Immunization History Hx Tetanus Toxoid Vaccination: Yes (06/09/14) Hx Influenza Vaccination: Yes (2015) Hx Pneumococcal Vaccination: Yes Review Of Systems Eyes: Positive for: Pain (left), Other (left eye light sensitivity ). Negative for: Vision Change (blurry vision ) Neurological: Negative for: Headache Physical Exam - Physical Exam Appears: Non-toxic, No Acute Distress Skin: Normal Color, Warm, Dry, No Rash Head: Atraumatic, Normacephalic Eye(s): bilateral: PERRL, EOMI (no pain or limitation on extraocular movement), left: Other (conjunctival injection inner> lateral aspect eye, no fluorescein uptake, no periorbital edma or eyrthema, no corneal FB ) Ear(s): Bilateral: Normal Nose: No Discharge Oral Mucosa: Moist, No Drooling Tongue: Normal Appearing Throat: No Erythema, No Exudate, No Drooling Neck: Trachea Midline, Supple Lymphatic: No Adenopathy (cervical) Chest: Symmetrical, No Deformity, No Tenderness Cardiovascular: Rhythm Regular, No Murmur Respiratory: No Decreased Breath Sounds, No Accessory Muscle Use, No Stridor, No Wheezing Gastrointestinal/Abdominal: Soft, No Tenderness, No Distention, No Guarding Back: No CVA Tenderness Extremity: Normal ROM, No Pedal Edema, No Deformity, No Swelling Neurological/Psych: Oriented x3, Normal Speech ED Course And Treatment - Laboratory Results Result Diagrams: 10/18/17 22:33 Urine POC: Negative O2 Sat by Pulse Oximetry: 100 (on RA) Pulse Ox Interpretation: Normal Progress Note: FSBS 346. Pt remained comfortable in ED, not in any apparent distress. UA results review (+) [facility], (-) ketones. Case discussed with ED attending , sig out: chemistry, hydration, re-eval, dispo- pending. Disposition - Disposition Disposition Time: 23:02 Condition: STABLE Forms: [facility] ([place]) - Clinical Impression Clinical Impression: Conjunctivitis, Diabetes type 2, uncontrolled, UTI (urinary tract infection) - PA / [employer] / Resident Statement MD/DO has reviewed & agrees with the documentation as recorded. - Scribe Statement The provider has reviewed the documentation as recorded by the Scribe (Lucita Mcelroy) All medical record entries made by the Scribe were at my direction and personally dictated by me. I have reviewed the chart and agree that the record accurately reflects my personal performance of the history, physical exam, medical decision making, and the department course for this patient. I have also personally directed, reviewed, and agree with the discharge instructions and disposition.
[2017-10-18] MEDS ORDERED: (Novolin R) Insulin Human Regular 100 units/ml vial IV ONE (22:10)
[2017-10-18] MEDS ORDERED: Sodium Chloride 0.9% 1,000 ML ONE (22:19)
[2017-10-18] MEDS ORDERED: (Novolin R) Insulin Human Regular 100 units/ml vial ONE (22:36)
[2017-10-18 22:38] LABS: BASO % 0.6 % (0.0-2.0); EOS # 0.1 K/uL (0.0-0.7); EOS % 1.5 % (0.0-4.0); HEMOGLOBIN 14.1 g/dL (11.0-16.0); LYMPH # 1.9 K/uL (1.0-4.3); MEAN CELL VOLUME 92.9 fL (81.0-99.0); MEAN CORPUSCULAR HGB CONC 34.4 g/dL (33.0-37.0); MEAN PLATELET VOLUME 10.3 fL (7.2-11.7); MONO # 0.7 K/uL (0.0-0.8); MONO % 13.2 % (0.0-10.0); NEUT # 2.5 K/uL (1.8-7.0); NEUT % 48.7 % (50.0-75.0); NRBC % 0.1 % (0.0-2.0); RBC 4.41 Mil/uL (3.80-5.20); RED CELL DISTRIBUTION WIDTH 14.2 % (11.5-14.5); WHITE BLOOD COUNT 5.1 K/uL (4.8-10.8)
[2017-10-18 22:40] LABS: SQUAMOUS EPITHIAL 4 /hpf (0-5); URINE BILIRUBIN NEGATIVE (NEGATIVE); URINE BLOOD NEGATIVE (NEGATIVE); URINE CLARITY Hazy (Clear); URINE COLOR Yellow (YELLOW); URINE GLUCOSE (UA) 3+ mg/dL (Normal); URINE LEUKOCYTE ESTERASE 3+ Leu/uL (Negative); URINE PROTEIN NEGATIVE (NEGATIVE); URINE UROBILINOGEN NORMAL mg/dL (0.2-1.0); WBC CLUMPS FEW /hpf
[2017-10-18] MEDS ORDERED: cefTRIAXone IV 1 gm in Dextros 50 ML IVPB ONE (23:05)
[2017-10-18 23:19] LABS: ALBUMIN 3.7 g/dL (3.5-5.0); ALT/SGPT 41 U/L (9-52); AST/SGOT 35 U/L (14-36); BLOOD UREA NITROGEN 18 mg/dL (7-17); CALCIUM 8.8 mg/dl (8.6-10.4); GFR AFRICAN-AMERICAN > 60; GFR NON-AFRICAN AMERICAN > 60
[2017-10-18 23:56] VITALS: BP 140/81; PULSE 64; RESP 18; TEMP 98
== END 2017-10-18 23:56 | disposition home or self-care (01) ==
LOC: C.ER 20:47
DX: H10.9 Unspecified conjunctivitis (principal); E11.9 Type 2 diabetes mellitus without complications; N39.0 Urinary tract infection, site not specified; I12.9 Hypertensive chronic kidney disease with stage 1 through stage 4 chronic kidney disease, or unspecified chronic kidney disease; N18.9 Chronic kidney disease, unspecified; E78.00 Pure hypercholesterolemia, unspecified
CPT/HCPCS: 36415; 80053; 81001; 82009; 82948; 85025; 87086; 96361; 96365; 96375; 99283; J0696; J7040

== ENCOUNTER 2017-10-22 04:41 | Inpatient (IN) | payer MEDICAID ==
[2017-10-22 04:41] VITALS: BMI 36.4
--- NOTE | 2017-10-22 05:01 | C.PDOC ---
History Of Present Illness Patient presents to the ER after she woke up at 03:30 with the sensation of tingling to the hands. Patient notes she has had this for the past few weeks, she usually sleeps with a c-pap machine, however, tonight she felt anxious as if she could not get enough air which prompted visit. Denies fever, chills, nausea, or vomiting. Time Seen by Provider: 10/22/17 05:01 Chief Complaint (Nursing): Weakness/Neurological Deficit History Per: Patient History/Exam Limitations: no limitations Onset/Duration Of Symptoms: Hrs Current Symptoms Are (Timing): Still Present Activity At Onset Of Symptoms: Lying Seizure Or Post-ictal Symptoms: None Possible Causative Factor(s): Other (Not known) Fall Associated With With Symptoms: No Severity: Moderate Pain Scale Rating Of: 4 Recent travel outside of the [place]: No - Symptoms Of CVA Associated Symptoms: denies: Impaired Speech, Seizure Activity, New Vision Deficit(Left), New Vision Deficit(Right), Decreased Ability To Walk, New Confusion Recent Aspirin Use: No Current Coumadin Use?: No Recent Head Trauma: No Past Medical History Reviewed: Historical Data, Nursing Documentation, Vital Signs Vital Signs: Last Vital Signs Temp 97.6 F 10/22/17 04:56 Pulse 60 10/22/17 04:56 Resp 20 10/22/17 04:56 BP 112/62 10/22/17 04:56 Pulse Ox 97 10/22/17 06:30 - Medical History PMH: Anxiety, Asthma, CAD, Cardia Arrhythmia, Depression, Diabetes, Gastritis, Gastrointestinal Ulcer, Gall Bladder Disease, HTN, Hypercholesterolemia, Peripheral Edema, Chronic Kidney Disease, Sleep Apnea, TIA Surgical History: CABG (september 2008 x4), Cholecystectomy, Coronary Stent (9 stents) - [facility] Procedures APPLICATION OF SPLINT (06/09/14) CORONAR ARTERIOGR-2 CATH (12/14/14) DILATION OF 1 COR ART WITH DRUG-ELUT INTRALUM, PERC APPROACH (05/26/15) DILATION OF CORONARY ARTERY, ONE SITE, PERCUTANEOUS APPROACH (03/04/16) FLUOROSCOPY OF LEFT HEART USING LOW OSMOLAR CONTRAST (05/26/15) FLUOROSCOPY OF SINGLE CORONARY ARTERY USING L OSM CONTRAST (05/26/15) INFLUENZA VACCINATION (05/08/14) LEFT HEART CARDIAC CATH (12/14/14) LT HEART ANGIOCARDIOGRAM (12/14/14) MEASURE OF CARDIAC SAMPL & PRESSURE, L HEART, PERC APPROACH (03/04/16) OTHER ENDOSCOPY OF SM INTEST (01/21/14) PLAIN RADIOGRAPHY OF LEFT HEART USING OTHER CONTRAST (03/04/16) PLAIN RADIOGRAPHY OF MULT COR ART USING OTH CONTRAST (03/04/16) TETANUS TOXOID ADMINIST (06/09/14) TRANSFUSE NONAUT RED BLOOD CELLS IN PERIPH VEIN, PERC (03/30/16) VACCINATION NEC (05/08/14) Family History: States: No Known Family Hx - Social History Hx Tobacco Use: No Hx Alcohol Use: No Hx Substance Use: No - Immunization History Hx Tetanus Toxoid Vaccination: Yes (06/09/14) Hx Influenza Vaccination: Yes (2015) Hx Pneumococcal Vaccination: Yes Review Of Systems Constitutional: Negative for: Fever, Chills Eyes: Negative for: Redness Cardiovascular: Negative for: Chest Pain, Palpitations Respiratory: Positive for: Shortness of Breath Gastrointestinal: Negative for: Nausea, Vomiting Genitourinary: Negative for: Dysuria Musculoskeletal: Negative for: Back Pain Skin: Negative for: Rash Neurological: Positive for: Numbness, Headache, Dizziness Psych: Positive for: Anxiety Physical Exam - Physical Exam Appears: Non-toxic, Other (Anxious) Skin: Warm, Dry Head: Normacephalic Eye(s): bilateral: Normal Inspection Oral Mucosa: Moist Throat: No Drooling Neck: Trachea Midline, Supple Chest: Symmetrical, No Tenderness Cardiovascular: Rhythm Regular Respiratory: No Rales, No Rhonchi, No Wheezing Gastrointestinal/Abdominal: Soft, No Tenderness Back: Normal Inspection Extremity: Pedal Edema (trace) Extremity: Bilateral: Atraumatic Pulses: Left Dorsalis Pedis: Normal, Right Dorsalis Pedis: Normal Neurological/Psych: Oriented x3, Normal Speech Gait: With Assistance ED Course And Treatment - Laboratory Results Result Diagrams: 10/22/17 06:02 10/22/17 06:02 ECG: Interpreted By Me, Viewed By Me O2 Sat by Pulse Oximetry: 97 (Room air) Pulse Ox Interpretation: Normal - Radiology CXR: Interpreted by Me, Viewed By Me CXR Interpretation: Yes: Cardiomegaly, Other (cabg). No: Infiltrates, Fracture Progress Note: Blood work, CT head, CXR, and urinalysis ordered. NIHSS Stroke Scale 2 - Date/Time Evaluation Performed Date Performed: 10/22/17 Time Performed: 05:17 When Was NIHSS Performed: Baseline - How Severe is the Stroke Level of Consciousness: 0=Alert LOC to Questions: 0=Both comments correct LOC to commands: 0=Obeys both correctly Best Gaze: 0=Normal Visual: 0=No visual loss Facial: 0=Normal Motor Arm - Left: 0=No drift Motor Arm - Right: 0=No drift Motor Leg - Left: 0=No drift Motor Leg - Right: 0=No drift Limb Ataxia: 0=Absent Sensory: 0=Normal Best Language: 0=No aphasia Dysarthia: 0=Normal articulation Extinction & Inattention (Neglect): 0=Normal, no object Score: 0 Disposition Discussed With : Spencer Mcelroy Comment: accepted the pt on his service and took over the care at 6:40 AM Doctor Will See Patient In The: Hospital Counseled Patient/Family Regarding: Studies Performed, Diagnosis - Disposition Referrals: Leonidas Keith MD [Primary Care Provider] - Disposition: HOSPITALIZED Disposition Time: 05:01 Condition: FAIR Forms: [facility] ([place]z) - POA Present On Arrival: Poor Glycemic Control - Clinical Impression Clinical Impression: Dyspnea, CHF (congestive heart failure), Paresthesia - Scribe Statement The provider has reviewed the documentation as recorded by the Scribtsering [place] All medical record entries made by the Scribe were at my direction and personally dictated by me. I have reviewed the chart and agree that the record accurately reflects my personal performance of the history, physical exam, medical decision making, and the department course for this patient. I have also personally directed, reviewed, and agree with the discharge instructions and disposition. Decision To Admit - Pt Status Changed To: Hospital Disposition Of: Inpatient - Admit Certification Admit to Inpatient:: After my assessment, the patient will require hospitalization for at least two midnights. This is because of the severity of symptoms shown, intensity of services needed, and/or the medical risk in this patient being treated as an outpatient. - InPatient: Physician Admission Certification: I certify that this patient requires 2 or more midnights of care for the following reason:: After my assessment, the patient will require hospitalization for at least two midnights. This is because of the severity of symptoms shown, intensity of services needed, and/or the medical risk in this patient being treated as an outpatient. - . Bed Request Type: Telemetry Admitting Physician: Spencer Mcelroy Patient Diagnosis: Dyspnea, CHF (congestive heart failure), Paresthesia
[2017-10-22 06:05] LABS: VENOUS BLOOD GAS PCO2 53 mmHg (40-60); VENOUS BLOOD GAS PO2 20 mm/Hg (30-55); VENOUS BLOOD PH 7.33 (7.32-7.43)
[2017-10-22 06:06] LABS: BASO % 0.5 % (0.0-2.0); EOS # 0.1 K/uL (0.0-0.7); EOS % 0.7 % (0.0-4.0); HEMOGLOBIN 12.9 g/dL (11.0-16.0); LYMPH # 1.6 K/uL (1.0-4.3); LYMPH % 19.5 % (20.0-40.0); MEAN CELL VOLUME 92.9 fL (81.0-99.0); MEAN CORPUSCULAR HGB CONC 34.5 g/dL (33.0-37.0); MEAN PLATELET VOLUME 10.3 fL (7.2-11.7); MONO # 0.6 K/uL (0.0-0.8); NEUT # 5.7 K/uL (1.8-7.0); NEUT % 71.3 % (50.0-75.0); RBC 4.04 Mil/uL (3.80-5.20); RED CELL DISTRIBUTION WIDTH 14.3 % (11.5-14.5)
[2017-10-22 06:20] LABS: PROTHROMBIN TIME 11.2 SECONDS (9.7-12.2)
[2017-10-22 06:33] LABS: ALB/GLOB RATIO 1.2 (1.0-2.1); ALT/SGPT 50 U/L (9-52); AST/SGOT 36 U/L (14-36); BLOOD UREA NITROGEN 21 mg/dL (7-17); CALCIUM 8.4 mg/dl (8.6-10.4); GFR AFRICAN-AMERICAN > 60; GFR NON-AFRICAN AMERICAN > 60; LIPASE 56 U/L (23-300)
--- NOTE | 2017-10-22 06:46 | CT ---
EXAM: CT Head Without Intravenous Contrast EXAM DATE/TIME: 10/22/2017 5:26 AM CLINICAL HISTORY: 52 years old, female; Pain; Headache; Additional info: R/O bleed TECHNIQUE: Axial computed tomography images of the head/brain without intravenous contrast. All CT scans at this facility use one or more dose reduction techniques, viz.: automated exposure control; ma/kV adjustment per patient size (including targeted exams where dose is matched to indication; i.e. head); or iterative reconstruction technique. COMPARISON: CT - HEAD W/O (CODE STROKE) 2017-03-27 10:19 FINDINGS: Brain: Bilateral basal ganglia calcifications. No hemorrhage. No edema. No significant white matter disease. Ventricles: Unremarkable. No ventriculomegaly. Bones/joints: Unremarkable. No acute fracture. Soft tissues: Unremarkable. Vasculature: Calcifications of cavernous carotid and vertebral arteries. No hyperdense vessel. Sinuses: Unremarkable as visualized. No acute sinusitis. Mastoid air cells: Unremarkable as visualized. No mastoid effusion. IMPRESSION: No acute cerebral hemorrhage or edema.
[2017-10-22 07:12] LABS: SQUAMOUS EPITHIAL 6 /hpf (0-5); URINE BILIRUBIN NEGATIVE (NEGATIVE); URINE CLARITY Hazy (Clear); URINE COLOR Amber (YELLOW); URINE GLUCOSE (UA) NORMAL (Normal); URINE LEUKOCYTE ESTERASE TRACE Leu/uL (Negative); URINE PROTEIN 1+ mg/dL (NEGATIVE)
[2017-10-22 07:17] LABS: URINE BLOOD TRACE (NEGATIVE)
--- NOTE | 2017-10-22 09:35 | RAD ---
PROCEDURE: CHEST RADIOGRAPH, 1 VIEW HISTORY: cough COMPARISON: Chest radiograph dated 08/02/2017. FINDINGS: LUNGS: Appearance of the pulmonary vasculature may be secondary to AP technique and/or pulmonary vascular congestion. No focal consolidation. PLEURA: No pneumothorax or pleural fluid seen. CARDIOVASCULAR: Prior sternotomy with sternal wires and surgical clips redemonstrated. Atherosclerotic aortic calcifications. Cardiomediastinal silhouette stably prominent. OSSEOUS STRUCTURES: Unchanged. VISUALIZED UPPER ABDOMEN: Normal. OTHER FINDINGS: None. IMPRESSION: Prominence of the pulmonary vasculature may be secondary to AP technique and/or pulmonary vascular congestion. No focal consolidation or pleural effusion.
[2017-10-22] MEDS: Ranolazine 500 mg Extended Release Tablets PO SCH ×3 (18:00→19:23)
[2017-10-22] MEDS: (Novolin 70/30) NPH/Regular 70/30 Units/ml 10 ml vial SC SCH (18:26)
[2017-10-22] MEDS: Albuterol-Ipratrop 3 mg / 0.5 (3 ml) UD INH SCH (19:29)
--- NOTE | 2017-10-22 19:35 | CP.PCM.HP ---
Past Patient History - Infectious Disease Hx of Infectious Diseases: None - Past Medical History & Family History Past Medical History?: Yes - Past Social History Smoking Status: Never Smoked - CARDIAC Hx Cardia Arrhythmia: Yes Hx Hypercholesterolemia: Yes Hx Hypertension: Yes Hx Peripheral Edema: Yes - PULMONARY Hx Asthma: Yes Hx Sleep Apnea: Yes - NEUROLOGICAL Hx Transient Ischemic Attacks (TIA): Yes - HEENT Hx HEENT Problems: No - RENAL Hx Chronic Kidney Disease: Yes - ENDOCRINE/METABOLIC Hx Endocrine Disorders: Yes Hx Diabetes Mellitus Type 1: Yes - HEMATOLOGICAL/ONCOLOGICAL Hx Blood Disorders: Yes - INTEGUMENTARY Hx Dermatological Problems: Yes Hx Psoriasis: Yes (mild) - MUSCULOSKELETAL/RHEUMATOLOGICAL Hx Falls: Yes - GASTROINTESTINAL Hx Gall Bladder Disease: Yes Hx Gastritis: Yes - GENITOURINARY/GYNECOLOGICAL Hx Genitourinary Disorders: No - PSYCHIATRIC Hx Anxiety: Yes Hx Depression: Yes Hx Substance Use: No - SURGICAL HISTORY Hx Cholecystectomy: Yes Hx Coronary Artery Bypass Graft: Yes (september 2008 x4) Hx Coronary Stent: Yes (9 stents) - ANESTHESIA Hx Anesthesia: Yes Hx Anesthesia Reactions: No Hx Malignant Hyperthermia: No Meds Allergies/Adverse Reactions: Allergies Allergy/AdvReac Type Severity Reaction Status Date / Time iodine Allergy Severe URTICARIA Verified 10/22/17 04:49 latex Allergy Severe URTICARIA Verified 10/22/17 04:49 seafood Allergy Severe URTICARIA Uncoded 10/22/17 04:49 Physical Exam - Constitutional Appears: Well - Head Exam Head Exam: ATRAUMATIC, NORMAL INSPECTION, NORMOCEPHALIC - Eye Exam Eye Exam: EOMI, Normal appearance, PERRL Pupil Exam: NORMAL ACCOMODATION, PERRL - ENT Exam ENT Exam: Mucous Membranes Moist, Normal Exam - Neck Exam Neck exam: Positive for: Normal Inspection - Respiratory Exam Respiratory Exam: Decreased Breath Sounds - Cardiovascular Exam Cardiovascular Exam: REGULAR RHYTHM, +S1, +S2 - GI/Abdominal Exam GI & Abdominal Exam: Diminished Bowel Sounds, Soft - Rectal Exam Rectal Exam: Deferred Results - Vital Signs Recent Vital Signs: Last Vital Signs Temp 97.9 F 10/22/17 15:30 Pulse 59 L 10/22/17 15:30 Resp 20 10/22/17 15:30 BP 117/72 10/22/17 15:30 Pulse Ox 94 L 10/22/17 15:30 - Labs Result Diagrams: 10/22/17 06:02 10/22/17 06:02 Labs: Laboratory Results - last 24 hr 10/22/17 10/22/17 10/22/17 04:53 04:53 06:01 WBC RBC Hgb Hct MCV MCH MCHC RDW Plt Count MPV Neut % (Auto) Lymph % (Auto) [place] % (Auto) Eos % (Auto) Baso % (Auto) Neut # (Auto) Lymph # (Auto) [place] # (Auto) Eos # (Auto) Baso # (Auto) PT INR APTT pO2 20 L VBG pH 7.33 VBG pCO2 53 VBG HCO3 23.8 VBG Total CO2 29.5 H VBG O2 Sat (Calc) 35.1 L VBG Base Excess 1.0 VBG Potassium 4.0 Sodium 136.0 Chloride 102.0 Glucose 171 H Lactate 2.1 Potassium Carbon Dioxide Anion Gap BUN Creatinine Est GFR ( Amer) Est GFR (Non-Af Amer) POC Glucose (mg/dL) 160 H 160 H Random Glucose Calcium Magnesium Total Bilirubin AST ALT Alkaline Phosphatase Total Protein Albumin Globulin Albumin/Globulin Ratio Lipase Venous Blood Potassium 4.0 Urine Color Urine Clarity Urine pH Ur Specific [place] Urine Protein Urine Glucose (UA) Urine Ketones Urine Blood Urine Nitrate Urine Bilirubin Urine Urobilinogen Ur Leukocyte Esterase Urine WBC (Auto) Urine RBC (Auto) Ur Squamous Epith Cells 10/22/17 10/22/17 10/22/17 06:02 06:02 06:02 WBC 8.0 D RBC 4.04 Hgb 12.9 Hct 37.5 MCV 92.9 MCH 32.0 H MCHC 34.5 RDW 14.3 Plt Count 158 MPV 10.3 Neut % (Auto) 71.3 Lymph % (Auto) 19.5 L [place] % (Auto) 8.0 Eos % (Auto) 0.7 Baso % (Auto) 0.5 Neut # (Auto) 5.7 Lymph # (Auto) 1.6 [place] # (Auto) 0.6 Eos # (Auto) 0.1 Baso # (Auto) 0.0 PT 11.2 INR 1.0 APTT 29 pO2 VBG pH VBG pCO2 VBG HCO3 VBG Total CO2 VBG O2 Sat (Calc) VBG Base Excess VBG Potassium Sodium Chloride Glucose Lactate Potassium Carbon Dioxide Anion Gap BUN Creatinine Est GFR ( Amer) Est GFR (Non-Af Amer) POC Glucose (mg/dL) Random Glucose Calcium Magnesium Total Bilirubin AST ALT Alkaline Phosphatase Total Protein Albumin Globulin Albumin/Globulin Ratio Lipase Venous Blood Potassium Urine Color Lili Urine Clarity Hazy Urine pH 5.0 Ur Specific [place] 1.021 Urine Protein 1+ H Urine Glucose (UA) Normal Urine Ketones Negative Urine Blood Trace H Urine Nitrate Negative Urine Bilirubin Negative Urine Urobilinogen 4.0 H Ur Leukocyte Esterase Trace Urine WBC (Auto) 7 H Urine RBC (Auto) 11 H Ur Squamous Epith Cells 6 H 10/22/17 10/22/17 06:02 15:48 WBC RBC Hgb Hct MCV MCH MCHC RDW Plt Count MPV Neut % (Auto) Lymph % (Auto) [place] % (Auto) Eos % (Auto) Baso % (Auto) Neut # (Auto) Lymph # (Auto) [place] # (Auto) Eos # (Auto) Baso # (Auto) PT INR APTT pO2 VBG pH VBG pCO2 VBG HCO3 VBG Total CO2 VBG O2 Sat (Calc) VBG Base Excess VBG Potassium Sodium 140 Chloride 99 Glucose Lactate Potassium 4.2 Carbon Dioxide 25 Anion Gap 19 BUN 21 H Creatinine 0.7 Est GFR ( Amer) > 60 Est GFR (Non-Af Amer) > 60 POC Glucose (mg/dL) 221 H Random Glucose 154 H Calcium 8.4 L Magnesium 1.7 Total Bilirubin 0.9 AST 36 ALT 50 Alkaline Phosphatase 73 Total Protein 7.5 Albumin 4.0 Globulin 3.5 Albumin/Globulin Ratio 1.2 Lipase 56 Venous Blood Potassium Urine Color Urine Clarity Urine pH Ur Specific [place] Urine Protein Urine Glucose (UA) Urine Ketones Urine Blood Urine Nitrate Urine Bilirubin Urine Urobilinogen Ur Leukocyte Esterase Urine WBC (Auto) Urine RBC (Auto) Ur Squamous Epith Cells
[2017-10-22] MEDS: Insulin Detemir 100 units/ml Vial (Levemir) SC SCH (21:50)
[2017-10-23] MEDS: Albuterol-Ipratrop 3 mg / 0.5 (3 ml) UD INH SCH ×4 (01:34→19:44)
[2017-10-23] MEDS: (Novolin 70/30) NPH/Regular 70/30 Units/ml 10 ml vial SC SCH ×2 (10:21→17:47)
[2017-10-23] MEDS: Multiple Vitamins Tab PO SCH (10:22)
[2017-10-23] MEDS: Omega-3-Acid Ethyl Esters 1 GM Cap PO SCH (10:22)
[2017-10-23] MEDS: Ranolazine 500 mg Extended Release Tablets PO SCH ×2 (10:22→17:47)
[2017-10-23] MEDS: Enoxaparin 40 mg Syringe SC SCH (10:27)
--- NOTE | 2017-10-23 11:43 | CP.PCM.CON ---
Past Patient History - Infectious Disease Hx of Infectious Diseases: None - Past Medical History & Family History Past Medical History?: Yes - Past Social History Smoking Status: Never Smoked - CARDIAC Hx Cardiac Disorders: Yes Hx Cardia Arrhythmia: Yes Hx Hypercholesterolemia: Yes Hx Hypertension: Yes Hx Peripheral Edema: Yes - PULMONARY Hx Respiratory Disorders: Yes Hx Asthma: Yes Hx Sleep Apnea: Yes - NEUROLOGICAL Hx Neurological Disorder: Yes Hx Transient Ischemic Attacks (TIA): Yes - HEENT Hx HEENT Problems: No - RENAL Hx Chronic Kidney Disease: Yes - ENDOCRINE/METABOLIC Hx Endocrine Disorders: Yes Hx Diabetes Mellitus Type 1: Yes - HEMATOLOGICAL/ONCOLOGICAL Hx Blood Disorders: Yes - INTEGUMENTARY Hx Dermatological Problems: Yes Hx Psoriasis: Yes (mild) - MUSCULOSKELETAL/RHEUMATOLOGICAL Hx Falls: Yes - GASTROINTESTINAL Hx Gastrointestinal Disorders: Yes Hx Gall Bladder Disease: Yes Hx Gastritis: Yes - GENITOURINARY/GYNECOLOGICAL Hx Genitourinary Disorders: No - PSYCHIATRIC Hx Psychophysiologic Disorder: Yes Hx Anxiety: Yes Hx Depression: Yes Hx Substance Use: No - SURGICAL HISTORY Hx Surgeries: Yes Hx Cholecystectomy: Yes Hx Coronary Artery Bypass Graft: Yes (september 2008 x4) Hx Coronary Stent: Yes (9 stents) - ANESTHESIA Hx Anesthesia: Yes Hx Anesthesia Reactions: No Hx Malignant Hyperthermia: No Meds Allergies/Adverse Reactions: Allergies Allergy/AdvReac Type Severity Reaction Status Date / Time iodine Allergy Severe URTICARIA Verified 10/22/17 04:49 latex Allergy Severe URTICARIA Verified 10/22/17 04:49 seafood Allergy Severe URTICARIA Uncoded 10/22/17 04:49 - Medications Medications: Current Medications Albuterol/Ipratropium (Duoneb 3 Mg/0.5 Mg (3 Ml) Ud) 3 ml INH RQ6 [facility] Last Admin: 10/23/17 07:25 Dose: 3 ml Aspirin (Ecotrin) 81 mg PO DAILY [facility] Last Admin: 10/23/17 10:22 Dose: 81 mg Clopidogrel Bisulfate (Plavix) 75 mg PO DAILY [facility] Last Admin: 10/23/17 10:22 Dose: 75 mg Enoxaparin Sodium (Lovenox) 40 mg SC DAILY [facility] Last Admin: 10/23/17 10:27 Dose: 40 mg Famotidine (Pepcid) 20 mg PO BID [facility] Last Admin: 10/23/17 10:22 Dose: 20 mg Fluoxetine HCl (Prozac) 40 mg PO DAILY [facility] Last Admin: 10/23/17 10:22 Dose: 40 mg Insulin Detemir (Levemir) 35 unit SC HS [facility] Last Admin: 10/22/17 21:50 Dose: 35 unit Insulin Human Isoph/Insulin Regular (Novolin 70/30 (70/30 Units/Ml) 10 Ml) 10 units SC BID [facility] Last Admin: 10/23/17 10:21 Dose: 10 units Loratadine (Claritin) 10 mg PO DAILY [facility] Last Admin: 10/23/17 10:22 Dose: 10 mg Multivitamins (Hexavitamin) 1 tab PO DAILY [facility] Last Admin: 10/23/17 10:22 Dose: 1 tab [id number] Ethyl Esters (Lovaza) 1 gm PO DAILY [facility] Last Admin: 10/23/17 10:22 Dose: 1 gm Ranolazine (Ranexa) 1,000 mg PO BID [facility] Last Admin: 10/23/17 10:22 Dose: 1,000 mg Results - Vital Signs Recent Vital Signs: Last Vital Signs Temp 97.6 F 10/23/17 08:16 Pulse 81 10/23/17 10:20 Resp 20 10/23/17 08:16 BP 135/69 10/23/17 10:20 Pulse Ox 96 10/23/17 08:16 - Labs Result Diagrams: 10/22/17 06:02 10/22/17 06:02 Labs: Laboratory Results - last 24 hr 10/22/17 10/22/17 10/23/17 15:48 21:12 07:41 POC Glucose (mg/dL) 221 H 291 H 244 H
--- NOTE | 2017-10-23 11:43 | CP.PCM.CON ---
History of Present Illness - History of Present Illness History of Present Illness: patient seen/examined. full consult to follow. recommend conitnued lasix. Neuro eval continue antiplatelet therapy given recent stenting Past Patient History - Infectious Disease Hx of Infectious Diseases: None - Past Medical History & Family History Past Medical History?: Yes - Past Social History Smoking Status: Never Smoked - CARDIAC Hx Cardiac Disorders: Yes Hx Cardia Arrhythmia: Yes Hx Hypercholesterolemia: Yes Hx Hypertension: Yes Hx Peripheral Edema: Yes - PULMONARY Hx Respiratory Disorders: Yes Hx Asthma: Yes Hx Sleep Apnea: Yes - NEUROLOGICAL Hx Neurological Disorder: Yes Hx Transient Ischemic Attacks (TIA): Yes - HEENT Hx HEENT Problems: No - RENAL Hx Chronic Kidney Disease: Yes - ENDOCRINE/METABOLIC Hx Endocrine Disorders: Yes Hx Diabetes Mellitus Type 1: Yes - HEMATOLOGICAL/ONCOLOGICAL Hx Blood Disorders: Yes - INTEGUMENTARY Hx Dermatological Problems: Yes Hx Psoriasis: Yes (mild) - MUSCULOSKELETAL/RHEUMATOLOGICAL Hx Falls: Yes - GASTROINTESTINAL Hx Gastrointestinal Disorders: Yes Hx Gall Bladder Disease: Yes Hx Gastritis: Yes - GENITOURINARY/GYNECOLOGICAL Hx Genitourinary Disorders: No - PSYCHIATRIC Hx Psychophysiologic Disorder: Yes Hx Anxiety: Yes Hx Depression: Yes Hx Substance Use: No - SURGICAL HISTORY Hx Surgeries: Yes Hx Cholecystectomy: Yes Hx Coronary Artery Bypass Graft: Yes (september 2008 x4) Hx Coronary Stent: Yes (9 stents) - ANESTHESIA Hx Anesthesia: Yes Hx Anesthesia Reactions: No Hx Malignant Hyperthermia: No Meds Allergies/Adverse Reactions: Allergies Allergy/AdvReac Type Severity Reaction Status Date / Time iodine Allergy Severe URTICARIA Verified 10/22/17 04:49 latex Allergy Severe URTICARIA Verified 10/22/17 04:49 seafood Allergy Severe URTICARIA Uncoded 10/22/17 04:49 - Medications Medications: Current Medications Albuterol/Ipratropium (Duoneb 3 Mg/0.5 Mg (3 Ml) Ud) 3 ml INH RQ6 [facility] Last Admin: 10/23/17 07:25 Dose: 3 ml Aspirin (Ecotrin) 81 mg PO DAILY [facility] Last Admin: 10/23/17 10:22 Dose: 81 mg Clopidogrel Bisulfate (Plavix) 75 mg PO DAILY [facility] Last Admin: 10/23/17 10:22 Dose: 75 mg Enoxaparin Sodium (Lovenox) 40 mg SC DAILY [facility] Last Admin: 10/23/17 10:27 Dose: 40 mg Famotidine (Pepcid) 20 mg PO BID [facility] Last Admin: 10/23/17 10:22 Dose: 20 mg Fluoxetine HCl (Prozac) 40 mg PO DAILY [facility] Last Admin: 10/23/17 10:22 Dose: 40 mg Insulin Detemir (Levemir) 35 unit SC HS [facility] Last Admin: 10/22/17 21:50 Dose: 35 unit Insulin Human Isoph/Insulin Regular (Novolin 70/30 (70/30 Units/Ml) 10 Ml) 10 units SC BID [facility] Last Admin: 10/23/17 10:21 Dose: 10 units Loratadine (Claritin) 10 mg PO DAILY [facility] Last Admin: 10/23/17 10:22 Dose: 10 mg Multivitamins (Hexavitamin) 1 tab PO DAILY [facility] Last Admin: 10/23/17 10:22 Dose: 1 tab Fxjzq-5-Heax Ethyl Esters (Lovaza) 1 gm PO DAILY [facility] Last Admin: 10/23/17 10:22 Dose: 1 gm Ranolazine (Ranexa) 1,000 mg PO BID [facility] Last Admin: 10/23/17 10:22 Dose: 1,000 mg Results - Vital Signs Recent Vital Signs: Last Vital Signs Temp 97.6 F 10/23/17 08:16 Pulse 81 10/23/17 10:20 Resp 20 10/23/17 08:16 BP 135/69 10/23/17 10:20 Pulse Ox 96 10/23/17 08:16 - Labs Result Diagrams: 10/22/17 06:02 10/22/17 06:02 Labs: Laboratory Results - last 24 hr 10/22/17 10/22/17 10/23/17 15:48 21:12 07:41 POC Glucose (mg/dL) 221 H 291 H 244 H
[2017-10-23] MEDS: Polymyxin/Trimethoprim Ophth Soln OS SCH ×2 (13:03→17:47)
[2017-10-23] MEDS: Piperacill/Tazo 3.375gm in Dex 3.375 GM/50 ML BAG IVPB SCH ×2 (14:32→21:48)
[2017-10-23] MEDS: (Novolog) Insulin Aspart, Recombinant 100 u/ml 10 ml vial SC SCH ×2 (17:04→21:36)
[2017-10-23] MEDS ORDERED: EUCRISA 2% TOP SCH (18:00)
[2017-10-23] MEDS ORDERED: CALCIPOTRIENE 0.005% TOP SCH (18:00)
[2017-10-23] MEDS: EUCRISA 2% TOP SCH (18:03)
[2017-10-23] MEDS: CALCIPOTRIENE 0.005% TOP SCH (18:03)
--- NOTE | 2017-10-23 19:32 | CP.PCM.PN ---
Subjective - Date & Time of Evaluation Date of Evaluation: 10/23/17 Time of Evaluation: 10:40 - Subjective Subjective: clinically same Objective - Vital Signs/Intake and Output Vital Signs (last 24 hours): Temp Pulse Resp BP Pulse Ox 97.8 F 65 20 124/72 95 10/23/17 15:06 10/23/17 16:53 10/23/17 15:06 10/23/17 15:06 10/23/17 15:06 Intake and Output: 10/23/17 10/24/17 18:59 06:59 Intake Total 450 Balance 450 - Medications Medications: Current Medications Albuterol/Ipratropium (Duoneb 3 Mg/0.5 Mg (3 Ml) Ud) 3 ml INH RQ6 [facility] Last Admin: 10/23/17 13:41 Dose: 3 ml Aspirin (Ecotrin) 81 mg PO DAILY [facility] Last Admin: 10/23/17 10:22 Dose: 81 mg Clopidogrel Bisulfate (Plavix) 75 mg PO DAILY [facility] Last Admin: 10/23/17 10:22 Dose: 75 mg Enoxaparin Sodium (Lovenox) 40 mg SC DAILY [facility] Last Admin: 10/23/17 10:27 Dose: 40 mg Famotidine (Pepcid) 20 mg PO BID [facility] Last Admin: 10/23/17 17:47 Dose: 20 mg Fluoxetine HCl (Prozac) 40 mg PO DAILY [facility] Last Admin: 10/23/17 10:22 Dose: 40 mg Home Med (Patient's Own Topical) 0 gm TOP BID [facility] Last Admin: 10/23/17 18:03 Dose: 1 gm Home Med (Patient's Own Topical) 0 gm TOP BID [facility] Last Admin: 10/23/17 18:03 Dose: 1 gm Piperacillin Sod/Tazobactam Sod (Zosyn 3.375 Gm Iv Premix) 3.375 gm in 50 mls @ 100 mls/hr IVPB Q8H [facility] PRN Reason: Protocol Last Admin: 10/23/17 14:32 Dose: 100 mls/hr Insulin Aspart (Novolog) 0 unit SC ACHS [facility] PRN Reason: Protocol Last Admin: 10/23/17 17:04 Dose: 6 unit Insulin Detemir (Levemir) 35 unit SC HS [facility] Last Admin: 10/22/17 21:50 Dose: 35 unit Insulin Human Isoph/Insulin Regular (Novolin 70/30 (70/30 Units/Ml) 10 Ml) 10 units SC BID [facility] Last Admin: 10/23/17 17:47 Dose: 10 units Loratadine (Claritin) 10 mg PO DAILY [facility] Last Admin: 10/23/17 10:22 Dose: 10 mg Multivitamins (Hexavitamin) 1 tab PO DAILY [facility] Last Admin: 10/23/17 10:22 Dose: 1 tab Iiwoz-0-Sjuu Ethyl Esters (Lovaza) 1 gm PO DAILY [facility] Last Admin: 10/23/17 10:22 Dose: 1 gm Polymyxin/Trimethoprim Sulfate (Polytrim Ophth Soln) 0 ml OS Q6H [facility] Last Admin: 10/23/17 17:47 Dose: 1 drop Ranolazine (Ranexa) 1,000 mg PO BID [facility] Last Admin: 10/23/17 17:47 Dose: 1,000 mg - Labs Labs: 10/22/17 06:02 10/22/17 06:02 PT 11.2 SECONDS (9.7-12.2) 10/22/17 06:02 INR 1.0 10/22/17 06:02 APTT 29 SECONDS (21-34) 10/22/17 06:02 - Constitutional Appears: Well - Head Exam Head Exam: ATRAUMATIC, NORMAL INSPECTION, NORMOCEPHALIC - Eye Exam Eye Exam: EOMI, Normal appearance, PERRL Pupil Exam: NORMAL ACCOMODATION, PERRL - ENT Exam ENT Exam: Mucous Membranes Moist, Normal Exam - Neck Exam Neck Exam: Full ROM, Normal Inspection. absent: Lymphadenopathy - Respiratory Exam Respiratory Exam: Decreased Breath Sounds - Cardiovascular Exam Cardiovascular Exam: REGULAR RHYTHM, +S1, +S2 - GI/Abdominal Exam GI & Abdominal Exam: Soft, Diminished Bowel Sounds - Rectal Exam Rectal Exam: Deferred
[2017-10-23] MEDS: Insulin Detemir 100 units/ml Vial (Levemir) SC SCH (21:49)
[2017-10-24] MEDS: Polymyxin/Trimethoprim Ophth Soln OS SCH ×4 (00:27→17:28)
--- NOTE | 2017-10-24 02:30 | CON ---
DATE: 10/23/2017 ATTENDING PHYSICIAN: Dr. Shellie Mcelroy. REASON FOR CONSULTATION: Numbness, tingling of the hand, perioral numbness. HISTORY: The patient is a 52-year-old right-handed lady with past medical history of asthma, hypertension, hyperlipidemia, diabetes mellitus. The patient has been complaining of numbness, tingling of the hands, on and off for the last week or so, but yesterday morning around 3:30, she woke up with numbness, tingling of the mouth, perioral numbness and dryness of the mouth, although the patient is using CPAP associated with numbness, tingling over the left arm. The patient states that she wanted to lift her arms against gravity, she was not able to lift the left against gravity, to some degree the right as well. The patient stated that it gradually improved, until she came to the hospital and completely resolved. The patient stated that she had similar episode 2 years ago and that is the reason she was worried and came to emergency room and at that time, she was told that she had a small stroke. The patient denies any associated dysphagia, dysarthria, double vision, blurred vision. 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 The patient denies any associated headache. PAST MEDICAL HISTORY: As mentioned above. Additional past medical history, depression, gastritis, peptic ulcer disease, gallbladder disease, peripheral edema, chronic kidney disease, sleep apnea, coronary artery disease, anxiety. SOCIAL HISTORY: Nonsmoker. No ethanol or drug abuser. ALLERGIES: ALLERGIC TO IODINE, LATEX AND SEA FOOD. MEDICATIONS: Loratadine, albuterol, aspirin, multivitamins, insulin, omega-3, enoxaparin, famotidine, fluoxetine, ranolazine (Ranexa), piperacillin currently in the hospital. REVIEW OF SYSTEMS: As per H and P and ER notes reviewed. PHYSICAL EXAMINATION: VITAL SIGNS: Blood pressure 112/62, pulse 60, respirations 20, temperature 97.6. MENTAL STATUS: The patient is alert, awake, oriented x3. Normal naming, repetition and comprehension. No nausea, no apraxia. No right or left confusion. No finger agnosia. Double simultaneous stimulation intact. CRANIAL NERVES: Pupils symmetrical 3 mm, bilaterally reactive to light and accommodation. Extraocular movements intact. V1 to V3 intact. No double vision, no blurred vision. No field defect. No nystagmus. Gag intact. Tongue midline. Accessory nerve intact. No perioral sensory deficits or asymmetry. MOTOR: Normal tone in upper extremities. No pronator drift. No tremors, action, resting or postural tremors. 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 Lower extremities, hip flexion, knee flexion and extension, ankle dorsiflexion, and plantar extension 5/5. Deep tendon reflexes 1 in upper and lower extremities, extended to ankles. Plantar flexion. SENSORY: Pinprick, light touch intact. Coordination [id number], [id number] intact. REPORTS: CAT scan of the brain, no significant finding, no acute findings. IMPRESSION AND PLAN: Transient left more than the right upper extremity weakness, perioral numbness, unsteadiness, possibility of posterior circulation transient ischemic attack versus brain stem cerebrovascular accident cannot be excluded. The patient will need MRI and MRA of the brain, carotid Doppler. Continue aspirin for now. Cardiology evaluation strongly recommended with a transthoracic echo. IV hydration, out of bed to chair with assistance. Fall precaution, DVT prophylaxis strongly recommended. Thank you for the consultation and Dr. Stauffer will follow up the patient on Wednesday. Troy Roca MD
[2017-10-24] MEDS: Piperacill/Tazo 3.375gm in Dex 3.375 GM/50 ML BAG IVPB SCH ×2 (05:35→14:15)
[2017-10-24] MEDS: Albuterol-Ipratrop 3 mg / 0.5 (3 ml) UD INH SCH ×3 (07:10→19:23)
[2017-10-24] MEDS: (Novolog) Insulin Aspart, Recombinant 100 u/ml 10 ml vial SC SCH ×4 (08:38→22:35)
--- NOTE | 2017-10-24 08:43 | CP.PCM.PN ---
Subjective - Date & Time of Evaluation Date of Evaluation: 10/24/17 Time of Evaluation: 08:30 - Subjective Subjective: patient has less dyspnea. undergoing neuro eval Objective - Vital Signs/Intake and Output Vital Signs (last 24 hours): Temp Pulse Resp BP Pulse Ox 97.6 F 65 20 153/72 H 96 10/24/17 07:05 10/24/17 07:47 10/24/17 07:05 10/24/17 07:05 10/24/17 07:05 Intake and Output: 10/24/17 10/24/17 06:59 18:59 Intake Total 60 Balance 60 - Medications Medications: Current Medications Albuterol/Ipratropium (Duoneb 3 Mg/0.5 Mg (3 Ml) Ud) 3 ml INH RQ6 [facility] Last Admin: 10/24/17 07:10 Dose: 3 ml Aspirin (Ecotrin) 81 mg PO DAILY [facility] Last Admin: 10/23/17 10:22 Dose: 81 mg Clopidogrel Bisulfate (Plavix) 75 mg PO DAILY [facility] Last Admin: 10/23/17 10:22 Dose: 75 mg Enoxaparin Sodium (Lovenox) 40 mg SC DAILY [facility] Last Admin: 10/23/17 10:27 Dose: 40 mg Famotidine (Pepcid) 20 mg PO BID [facility] Last Admin: 10/23/17 17:47 Dose: 20 mg Fluoxetine HCl (Prozac) 40 mg PO DAILY [facility] Last Admin: 10/23/17 10:22 Dose: 40 mg Home Med (Patient's Own Topical) 0 gm TOP BID [facility] Last Admin: 10/23/17 18:03 Dose: 1 gm Home Med (Patient's Own Topical) 0 gm TOP BID [facility] Last Admin: 10/23/17 18:03 Dose: 1 gm Piperacillin Sod/Tazobactam Sod (Zosyn 3.375 Gm Iv Premix) 3.375 gm in 50 mls @ 100 mls/hr IVPB Q8H [facility] PRN Reason: Protocol Last Admin: 10/24/17 05:35 Dose: 100 mls/hr Insulin Aspart (Novolog) 0 unit SC ACHS [facility] PRN Reason: Protocol Last Admin: 10/24/17 08:38 Dose: 3 unit Insulin Detemir (Levemir) 35 unit SC HS [facility] Last Admin: 10/23/17 21:49 Dose: 35 unit Insulin Human Isoph/Insulin Regular (Novolin 70/30 (70/30 Units/Ml) 10 Ml) 10 units SC BID [facility] Last Admin: 10/23/17 17:47 Dose: 10 units Loratadine (Claritin) 10 mg PO DAILY [facility] Last Admin: 10/23/17 10:22 Dose: 10 mg Multivitamins (Hexavitamin) 1 tab PO DAILY [facility] Last Admin: 10/23/17 10:22 Dose: 1 tab Velvo-2-Cndf Ethyl Esters (Lovaza) 1 gm PO DAILY [facility] Last Admin: 10/23/17 10:22 Dose: 1 gm Polymyxin/Trimethoprim Sulfate (Polytrim Ophth Soln) 0 ml OS Q6H [facility] Last Admin: 10/24/17 05:35 Dose: 1 drop Ranolazine (Ranexa) 1,000 mg PO BID [facility] Last Admin: 10/23/17 17:47 Dose: 1,000 mg - Labs Labs: 10/22/17 06:02 10/22/17 06:02 PT 11.2 SECONDS (9.7-12.2) 10/22/17 06:02 INR 1.0 10/22/17 06:02 APTT 29 SECONDS (21-34) 10/22/17 06:02 - Constitutional Appears: Non-toxic - Head Exam Head Exam: NORMAL INSPECTION - Eye Exam Eye Exam: Normal appearance - ENT Exam ENT Exam: Mucous Membranes Moist - Neck Exam Neck Exam: Full ROM - Respiratory Exam Respiratory Exam: NORMAL BREATHING PATTERN - Cardiovascular Exam Cardiovascular Exam: REGULAR RHYTHM - GI/Abdominal Exam GI & Abdominal Exam: Normal Bowel Sounds - Rectal Exam Rectal Exam: Deferred - Extremities Exam Extremities Exam: Pedal Edema - Back Exam Back Exam: NORMAL INSPECTION - Neurological Exam Neurological Exam: Alert - Psychiatric Exam Psychiatric exam: Normal Affect - Skin Skin Exam: Normal Color Assessment and Plan (1) CAD (coronary artery disease) Assessment & Plan: known CAD with stent of the circumflex. constinue antiplatelet tehrapy. will give trial of lasix Status: Acute (2) HTN (hypertension) Assessment & Plan: blood pressure control Status: Acute
[2017-10-24] MEDS: Multiple Vitamins Tab PO SCH (09:45)
[2017-10-24] MEDS: Enoxaparin 40 mg Syringe SC SCH (09:45)
[2017-10-24] MEDS: Omega-3-Acid Ethyl Esters 1 GM Cap PO SCH (09:45)
[2017-10-24] MEDS: Ranolazine 500 mg Extended Release Tablets PO SCH ×2 (09:46→17:27)
[2017-10-24] MEDS: (Novolin 70/30) NPH/Regular 70/30 Units/ml 10 ml vial SC SCH ×2 (10:00→17:26)
[2017-10-24] MEDS: EUCRISA 2% TOP SCH ×2 (10:00→17:33)
[2017-10-24] MEDS: CALCIPOTRIENE 0.005% TOP SCH ×2 (10:15→17:33)
--- NOTE | 2017-10-24 16:34 | CP.PCM.PN ---
Subjective - Date & Time of Evaluation Date of Evaluation: 10/24/17 Time of Evaluation: 10:20 - Subjective Subjective: clinically same Objective - Vital Signs/Intake and Output Vital Signs (last 24 hours): Temp Pulse Resp BP Pulse Ox 97.6 F 76 20 152/74 H 96 10/24/17 07:05 10/24/17 16:00 10/24/17 07:05 10/24/17 10:35 10/24/17 07:05 Intake and Output: 10/24/17 10/24/17 06:59 18:59 Intake Total 60 Balance 60 - Medications Medications: Current Medications Albuterol/Ipratropium (Duoneb 3 Mg/0.5 Mg (3 Ml) Ud) 3 ml INH RQ6 [facility] Last Admin: 10/24/17 13:23 Dose: 3 ml Aspirin (Ecotrin) 81 mg PO DAILY [facility] Last Admin: 10/24/17 09:45 Dose: 81 mg Clopidogrel Bisulfate (Plavix) 75 mg PO DAILY [facility] Last Admin: 10/24/17 09:45 Dose: 75 mg Enoxaparin Sodium (Lovenox) 40 mg SC DAILY [facility] Last Admin: 10/24/17 09:45 Dose: 40 mg Famotidine (Pepcid) 20 mg PO BID [facility] Last Admin: 10/24/17 09:45 Dose: 20 mg Fluoxetine HCl (Prozac) 40 mg PO DAILY [facility] Last Admin: 10/24/17 09:46 Dose: 40 mg Furosemide (Lasix) 40 mg IVP DAILY [facility] Last Admin: 10/24/17 10:35 Dose: 40 mg Home Med (Patient's Own Topical) 0 gm TOP BID [facility] Last Admin: 10/24/17 10:00 Dose: 2 gm Home Med (Patient's Own Topical) 0 gm TOP BID [facility] Last Admin: 10/24/17 10:15 Dose: 0.005 gm Insulin Aspart (Novolog) 0 unit SC ACHS [facility] PRN Reason: Protocol Last Admin: 10/24/17 14:40 Dose: 6 unit Insulin Detemir (Levemir) 35 unit SC HS [facility] Last Admin: 10/23/17 21:49 Dose: 35 unit Insulin Human Isoph/Insulin Regular (Novolin 70/30 (70/30 Units/Ml) 10 Ml) 10 units SC BID [facility] Last Admin: 10/24/17 10:00 Dose: 10 units Loratadine (Claritin) 10 mg PO DAILY [facility] Last Admin: 10/24/17 09:44 Dose: 10 mg Multivitamins (Hexavitamin) 1 tab PO DAILY [facility] Last Admin: 10/24/17 09:45 Dose: 1 tab Cxqss-3-Uqmk Ethyl Esters (Lovaza) 1 gm PO DAILY [facility] Last Admin: 10/24/17 09:45 Dose: 1 gm Polymyxin/Trimethoprim Sulfate (Polytrim Ophth Soln) 0 ml OS Q6H [facility] Last Admin: 10/24/17 12:15 Dose: 1 drop Ranolazine (Ranexa) 1,000 mg PO BID [facility] Last Admin: 10/24/17 09:46 Dose: 1,000 mg Temazepam (Restoril) 15 mg PO HS PRN PRN Reason: Sleep - Labs Labs: 10/22/17 06:02 10/22/17 06:02 PT 11.2 SECONDS (9.7-12.2) 10/22/17 06:02 INR 1.0 10/22/17 06:02 APTT 29 SECONDS (21-34) 10/22/17 06:02 - Constitutional Appears: Well - Head Exam Head Exam: ATRAUMATIC, NORMAL INSPECTION, NORMOCEPHALIC - Eye Exam Eye Exam: EOMI, Normal appearance, PERRL Pupil Exam: NORMAL ACCOMODATION, PERRL - ENT Exam ENT Exam: Mucous Membranes Moist, Normal Exam - Neck Exam Neck Exam: Full ROM, Normal Inspection. absent: Lymphadenopathy - Respiratory Exam Respiratory Exam: Decreased Breath Sounds - Cardiovascular Exam Cardiovascular Exam: REGULAR RHYTHM, +S1, +S2 - GI/Abdominal Exam GI & Abdominal Exam: Soft, Diminished Bowel Sounds - Rectal Exam Rectal Exam: Deferred
[2017-10-24 17:43] LABS: HDL CHOLESTEROL 53 mg/dL (30-70)
[2017-10-24 17:55] LABS: LDL CHOLESTEROL 166 mg/dL (0-129)
--- NOTE | 2017-10-24 18:38 | CP.PCM.CON ---
History of Present Illness - History of Present Illness History of Present Illness: Reason for consultation: shortness of breath 52-year-old female with history of obstructive sleep apnea on CPAP machine, history of asthma, coronary artery disease status post stent placement presented to emergency room after she woke up with the sensation of tingling to the hands and shortness of breath. Patient denies cough, denies fever and chills , denies chest pain. Patient has been compliant using CPAP at night. Patient statesthat she was recently started on inhalers by developmental therapist. Review of Systems - Review of Systems All systems: reviewed and no additional remarkable complaints except (shortness of breath) Past Patient History - Infectious Disease Hx of Infectious Diseases: None - Past Medical History & Family History Past Medical History?: Yes - Past Social History Smoking Status: Never Smoked - CARDIAC Hx Cardiac Disorders: Yes Hx Cardia Arrhythmia: Yes Hx Hypercholesterolemia: Yes Hx Hypertension: Yes Hx Peripheral Edema: Yes - PULMONARY Hx Respiratory Disorders: Yes Hx Asthma: Yes Hx Sleep Apnea: Yes - NEUROLOGICAL Hx Neurological Disorder: Yes Hx Transient Ischemic Attacks (TIA): Yes - HEENT Hx HEENT Problems: No - RENAL Hx Chronic Kidney Disease: Yes - ENDOCRINE/METABOLIC Hx Endocrine Disorders: Yes Hx Diabetes Mellitus Type 1: Yes - HEMATOLOGICAL/ONCOLOGICAL Hx Blood Disorders: Yes - INTEGUMENTARY Hx Dermatological Problems: Yes Hx Psoriasis: Yes (mild) - MUSCULOSKELETAL/RHEUMATOLOGICAL Hx Falls: Yes - GASTROINTESTINAL Hx Gastrointestinal Disorders: Yes Hx Gall Bladder Disease: Yes Hx Gastritis: Yes - GENITOURINARY/GYNECOLOGICAL Hx Genitourinary Disorders: No - PSYCHIATRIC Hx Psychophysiologic Disorder: Yes Hx Anxiety: Yes Hx Depression: Yes Hx Substance Use: No - SURGICAL HISTORY Hx Surgeries: Yes Hx Cholecystectomy: Yes Hx Coronary Artery Bypass Graft: Yes (september 2008 x4) Hx Coronary Stent: Yes (9 stents) - ANESTHESIA Hx Anesthesia: Yes Hx Anesthesia Reactions: No Hx Malignant Hyperthermia: No Meds Allergies/Adverse Reactions: Allergies Allergy/AdvReac Type Severity Reaction Status Date / Time iodine Allergy Severe URTICARIA Verified 10/22/17 04:49 latex Allergy Severe URTICARIA Verified 10/22/17 04:49 seafood Allergy Severe URTICARIA Uncoded 10/22/17 04:49 - Medications Medications: Current Medications Albuterol/Ipratropium (Duoneb 3 Mg/0.5 Mg (3 Ml) Ud) 3 ml INH RQ6 [facility] Last Admin: 10/24/17 13:23 Dose: 3 ml Aspirin (Ecotrin) 81 mg PO DAILY [facility] Last Admin: 10/24/17 09:45 Dose: 81 mg Clopidogrel Bisulfate (Plavix) 75 mg PO DAILY [facility] Last Admin: 10/24/17 09:45 Dose: 75 mg Enoxaparin Sodium (Lovenox) 40 mg SC DAILY [facility] Last Admin: 10/24/17 09:45 Dose: 40 mg Famotidine (Pepcid) 20 mg PO BID [facility] Last Admin: 10/24/17 17:27 Dose: 20 mg Fluoxetine HCl (Prozac) 40 mg PO DAILY [facility] Last Admin: 10/24/17 09:46 Dose: 40 mg Furosemide (Lasix) 40 mg IVP DAILY [facility] Last Admin: 10/24/17 10:35 Dose: 40 mg Home Med (Patient's Own Topical) 0 gm TOP BID [facility] Last Admin: 10/24/17 17:33 Dose: 1 gm Home Med (Patient's Own Topical) 0 gm TOP BID [facility] Last Admin: 10/24/17 17:33 Dose: 1 gm Insulin Aspart (Novolog) 0 unit SC [facility] PRN Reason: Protocol Last Admin: 10/24/17 17:27 Dose: 4 unit Insulin Detemir (Levemir) 35 unit SC HS [facility] Last Admin: 10/23/17 21:49 Dose: 35 unit Insulin Human Isoph/Insulin Regular (Novolin 70/30 (70/30 Units/Ml) 10 Ml) 10 units SC BID [facility] Last Admin: 10/24/17 17:26 Dose: 10 units Loratadine (Claritin) 10 mg PO DAILY [facility] Last Admin: 10/24/17 09:44 Dose: 10 mg Multivitamins (Hexavitamin) 1 tab PO DAILY [facility] Last Admin: 10/24/17 09:45 Dose: 1 tab Cydcj-9-Lhig Ethyl Esters (Lovaza) 1 gm PO DAILY [facility] Last Admin: 10/24/17 09:45 Dose: 1 gm Polymyxin/Trimethoprim Sulfate (Polytrim Ophth Soln) 0 ml OS Q6H [facility] Last Admin: 10/24/17 17:28 Dose: 1 drop Ranolazine (Ranexa) 1,000 mg PO BID [facility] Last Admin: 10/24/17 17:27 Dose: 1,000 mg Temazepam (Restoril) 15 mg PO HS PRN PRN Reason: Sleep Physical Exam - Head Exam Head Exam: ATRAUMATIC, NORMOCEPHALIC - Eye Exam Eye Exam: Normal appearance - ENT Exam ENT Exam: Mucous Membranes Moist - Neck Exam Neck exam: Positive for: Normal Inspection - Respiratory Exam Respiratory Exam: Clear to Auscultation Bilateral - Cardiovascular Exam Cardiovascular Exam: REGULAR RHYTHM - GI/Abdominal Exam GI & Abdominal Exam: Normal Bowel Sounds, Soft - Extremities Exam Extremities exam: Positive for: pedal edema - Neurological Exam Neurological exam: Alert, Oriented x3 Results - Vital Signs Recent Vital Signs: Last Vital Signs Temp 97.9 F 10/24/17 15:01 Pulse 76 10/24/17 16:00 Resp 20 10/24/17 15:01 BP 157/82 H 10/24/17 15:01 Pulse Ox 97 10/24/17 15:01 - Labs Result Diagrams: 10/22/17 06:02 10/22/17 06:02 Labs: Laboratory Results - last 24 hr 10/23/17 10/24/17 10/24/17 20:59 02:02 06:38 POC Glucose (mg/dL) 297 H 262 H 204 H Triglycerides Cholesterol LDL Cholesterol Direct HDL Cholesterol 10/24/17 10/24/17 10/24/17 11:55 16:11 17:07 POC Glucose (mg/dL) 308 H 270 H Triglycerides 210 H Cholesterol 236 H LDL Cholesterol Direct 166 H HDL Cholesterol 53 Assessment & Plan (1) ESPERANZA (obstructive sleep apnea) Status: Acute Comment: continue CPAP at night (2) Asthma Status: Acute Comment: continue nebulizer treatment. Add inhaled steroids (3) CHF (congestive heart failure) Assessment and Plan: continue Lasix Cardiology workup Status: Acute
[2017-10-24] MEDS: Insulin Detemir 100 units/ml Vial (Levemir) SC SCH (22:36)
[2017-10-25] MEDS: Polymyxin/Trimethoprim Ophth Soln OS SCH ×5 (00:25→23:52)
[2017-10-25] MEDS: Albuterol-Ipratrop 3 mg / 0.5 (3 ml) UD INH SCH ×4 (06:39→19:03)
[2017-10-25] MEDS: (Novolog) Insulin Aspart, Recombinant 100 u/ml 10 ml vial SC SCH ×4 (08:22→22:19)
[2017-10-25] MEDS: Enoxaparin 40 mg Syringe SC SCH (10:15)
[2017-10-25] MEDS: Omega-3-Acid Ethyl Esters 1 GM Cap PO SCH (10:15)
[2017-10-25] MEDS: Ranolazine 500 mg Extended Release Tablets PO SCH ×2 (10:15→17:51)
[2017-10-25] MEDS: Multiple Vitamins Tab PO SCH (10:15)
[2017-10-25] MEDS: (Novolin 70/30) NPH/Regular 70/30 Units/ml 10 ml vial SC SCH ×2 (10:15→17:52)
[2017-10-25] MEDS: EUCRISA 2% TOP SCH ×2 (10:16→17:55)
[2017-10-25] MEDS: CALCIPOTRIENE 0.005% TOP SCH ×2 (10:16→17:54)
[2017-10-25 14:03] LABS: BASO % 0.4 % (0.0-2.0); EOS # 0.1 K/uL (0.0-0.7); EOS % 1.8 % (0.0-4.0); HEMOGLOBIN 14.4 g/dL (11.0-16.0); LYMPH # 1.8 K/uL (1.0-4.3); MEAN CELL VOLUME 93.6 fL (81.0-99.0); MEAN CORPUSCULAR HEMOGLOBIN 32.3 pg (27.0-31.0); MEAN CORPUSCULAR HGB CONC 34.5 g/dL (33.0-37.0); MEAN PLATELET VOLUME 10.3 fL (7.2-11.7); MONO # 0.7 K/uL (0.0-0.8); MONO % 12.5 % (0.0-10.0); NEUT # 2.8 K/uL (1.8-7.0); NEUT % 52.3 % (50.0-75.0); NRBC % 0.2 % (0.0-2.0); RBC 4.47 Mil/uL (3.80-5.20); RED CELL DISTRIBUTION WIDTH 14.3 % (11.5-14.5); WHITE BLOOD COUNT 5.4 K/uL (4.8-10.8)
--- NOTE | 2017-10-25 14:21 | PN ---
DATE: 10/25/2017 SUBJECTIVE: Neurological problem, posterior cerebral artery ischemic process with significant risk factors including hypertension, dyslipidemia, stroke, [id number] diabetes mellitus, obesity, and obstructive sleep apnea. PHYSICAL EXAMINATION: VITAL SIGNS: Blood pressure 144/71, mean artery pressure of 95, respiratory rate 18, temperature 97.6, pulse rate 79 and regular. The patient was seen by Dr. Roca over the weekend for neurological problem. His consultation and recommendations are well appreciated. At present, the patient denies any new neurological complaints. The patient did have a year and a half ago FEEDER/FOLDER territory ischemic process being treated. At present, she is complaining of shortness of breath and history of elephant sitting on her chest. The patient is seen by Dr. Clay. From cardiac point of view, she is stable at present. She was told that she is retaining water in her chest. She is comfortable. Cranial nerves are normal. Motor examination seems to be intact except distal muscle groups with atrophy. 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 Coordination, finger-nose testing is intact. PLAN: 1. The patient is recommended to have MRI of the brain and MR angiogram. 2. After reviewing the blood test, the patient should be on high dose of statin and being prescribed at present. Continue aspirin and Plavix from neurological point of view to prevent stroke. The patient will be followed closely with you. James Stauffer MD
[2017-10-25 14:48] LABS: ALB/GLOB RATIO 1.1 (1.0-2.1); ALBUMIN 4.4 g/dL (3.5-5.0); ALT/SGPT 42 U/L (9-52); AST/SGOT 40 U/L (14-36); BLOOD UREA NITROGEN 18 mg/dL (7-17); CALCIUM 9.6 mg/dl (8.6-10.4); GFR AFRICAN-AMERICAN > 60; GFR NON-AFRICAN AMERICAN > 60
--- NOTE | 2017-10-25 15:38 | CP.PCM.PN ---
Subjective - Date & Time of Evaluation Date of Evaluation: 10/25/17 Time of Evaluation: 08:50 - Subjective Subjective: PGY2 Resident - Medicine Progress Note Patient seen and examined at bedside. No acute distress. No overnight events. Patient reports continued intermittent headache located in the occipital region. She went for carotid duplex today. Overall she reports feeling well, but is concerned about her headache and hand tingling 2/2 hx of CAFE LEAD ischemic process in 2016. Currently denies fever, chills, chest pain, palpitations, dyspnea, diarrhea/constipation. 12-point review of systems is otherwise negative without any additional acute complaints. Objective - Vital Signs/Intake and Output Vital Signs (last 24 hours): Temp Pulse Resp BP Pulse Ox 98.0 F 78 18 148/83 97 10/25/17 07:30 10/25/17 12:32 10/25/17 07:30 10/25/17 10:15 10/25/17 07:30 Intake and Output: 10/25/17 10/25/17 06:59 18:59 Intake Total 480 Balance 480 - Medications Medications: Current Medications Albuterol/Ipratropium (Duoneb 3 Mg/0.5 Mg (3 Ml) Ud) 3 ml INH RQ6 [facility] Last Admin: 10/25/17 12:59 Dose: 3 ml Aspirin (Ecotrin) 81 mg PO DAILY [facility] Last Admin: 10/25/17 10:15 Dose: 81 mg Clopidogrel Bisulfate (Plavix) 75 mg PO DAILY [facility] Last Admin: 10/25/17 10:15 Dose: 75 mg Enoxaparin Sodium (Lovenox) 40 mg SC DAILY [facility] Last Admin: 10/25/17 10:15 Dose: 40 mg Famotidine (Pepcid) 20 mg PO BID [facility] Last Admin: 10/25/17 10:15 Dose: 20 mg Fluoxetine HCl (Prozac) 40 mg PO DAILY [facility] Last Admin: 10/25/17 10:15 Dose: 40 mg Furosemide (Lasix) 40 mg IVP DAILY [facility] Last Admin: 10/25/17 10:15 Dose: 40 mg Home Med (Patient's Own Topical) 0 gm TOP BID [facility] Last Admin: 10/25/17 10:16 Dose: Not Given Home Med (Patient's Own Topical) 0 gm TOP BID [facility] Last Admin: 10/25/17 10:16 Dose: Not Given Insulin Aspart (Novolog) [address] [facility] PRN Reason: Protocol Last Admin: 10/25/17 13:12 Dose: 6 unit Insulin Detemir (Levemir) 35 unit SC HS [facility] Last Admin: 10/24/17 22:36 Dose: 35 unit Insulin Human Isoph/Insulin Regular (Novolin 70/30 (70/30 Units/Ml) 10 Ml) 10 units SC BID [facility] Last Admin: 10/25/17 10:15 Dose: 10 units Loratadine (Claritin) 10 mg PO DAILY [facility] Last Admin: 10/25/17 10:15 Dose: 10 mg Multivitamins (Hexavitamin) 1 tab PO DAILY [facility] Last Admin: 10/25/17 10:15 Dose: 1 tab [id number] Ethyl Esters (Lovaza) 1 gm PO DAILY [facility] Last Admin: 10/25/17 10:15 Dose: 1 gm Polymyxin/Trimethoprim Sulfate (Polytrim Ophth Soln) 0 ml OS Q6H [facility] Last Admin: 10/25/17 13:12 Dose: 1 drop Ranolazine (Ranexa) 1,000 mg PO BID [facility] Last Admin: 10/25/17 10:15 Dose: 1,000 mg Rosuvastatin Calcium (Crestor) 20 mg PO HS [facility] Temazepam (Restoril) 15 mg PO HS PRN PRN Reason: Sleep Last Admin: 10/25/17 00:25 Dose: 15 mg - Labs Labs: 10/25/17 13:56 10/25/17 13:56 PT 11.2 SECONDS (9.7-12.2) 10/22/17 06:02 INR 1.0 10/22/17 06:02 APTT 29 SECONDS (21-34) 10/22/17 06:02 - Additional Findings Additional findings: - Constitutional Appears: Non-toxic - Head Exam Head Exam: NORMAL INSPECTION - Eye Exam Eye Exam: Normal appearance - ENT Exam ENT Exam: Mucous Membranes Moist - Neck Exam Neck Exam: Full ROM - Respiratory Exam Respiratory Exam: NORMAL BREATHING PATTERN, Clear to Auscultation Bilateral - Cardiovascular Exam Cardiovascular Exam: REGULAR RHYTHM, S1, S2 - GI/Abdominal Exam GI & Abdominal Exam: Normal Bowel Sounds - Extremities Exam Extremities Exam: Pedal Edema - Back Exam Back Exam: NORMAL INSPECTION - Neurological Exam Neurological Exam: Alert, Oriented x3 - Psychiatric Exam Psychiatric exam: Normal Affect - Skin Skin Exam: Normal Color Assessment and Plan - Assessment and Plan (Free Text) Assessment: Hx CVA 10/25: f/u carotid duplex results f/u Neurology recs MRI not performed because pt had cardiac stent placed several wks ago. CAFE LEAD ischemic process dx 2016 c/o tingling in hands Neuro consult, Dr. Francois -Continue ASA and plavix to prevent stroke CAD (coronary artery disease) s/p CABGx4 in 2008 s/p stent of the circumflex several wks ago. continue antiplatelet therapy. Trial of lasix Plavix) 75 mg PO DAILY [facility] Ecotrin) 81 mg PO DAILY [facility] Crestor) 20 mg PO HS [facility] Lovaza) 1 gm PO DAILY [facility] HTN (hypertension) blood pressure control ESPERANZA (obstructive sleep apnea) continue CPAP at night Asthma continue nebulizer treatment. Add inhaled steroids Duoneb 3 Mg/0.5 Mg (3 Ml) Ud) 3 ml INH RQ6 [facility] Claritin) 10 mg PO DAILY [facility] CHF (congestive heart failure) continue Lasix Lasix) 40 mg IVP DAILY [facility] Cardiology workup Diabetes Novolog) 0 unit SC ACHS [facility] Levemir) 35 unit SC HS [facility] Anxiety Prozac) 40 mg PO DAILY [facility] Prophylaxis Pepcid) 20 mg PO BID [facility] Case discussed with attending. All medical management as per Dr. Rubi Mcelroy.
--- NOTE | 2017-10-25 16:57 | CP.PCM.PN ---
Subjective - Date & Time of Evaluation Date of Evaluation: 10/25/17 Time of Evaluation: 08:30 - Subjective Subjective: Patient seen and examined at bedside. No acute events overnight per nursing. Today the patient feels better and offered no complaints. Assessment and Plan: 1. ESPERANZA - CPAP at night 2. Asthma - Saturating 97% on RA - nebulizer treatments - add inhaled steroids 3. CHF - continue lasix Objective - Vital Signs/Intake and Output Vital Signs (last 24 hours): Temp Pulse Resp BP Pulse Ox 97.2 F L 82 20 109/74 94 L 10/25/17 15:51 10/25/17 15:51 10/25/17 15:51 10/25/17 15:51 10/25/17 15:51 Intake and Output: 10/25/17 10/25/17 06:59 18:59 Intake Total 480 Balance 480 - Medications Medications: Current Medications Albuterol/Ipratropium (Duoneb 3 Mg/0.5 Mg (3 Ml) Ud) 3 ml INH RQ6 [facility] Last Admin: 10/25/17 12:59 Dose: 3 ml Aspirin (Ecotrin) 81 mg PO DAILY [facility] Last Admin: 10/25/17 10:15 Dose: 81 mg Clopidogrel Bisulfate (Plavix) 75 mg PO DAILY [facility] Last Admin: 10/25/17 10:15 Dose: 75 mg Enoxaparin Sodium (Lovenox) 40 mg SC DAILY [facility] Last Admin: 10/25/17 10:15 Dose: 40 mg Famotidine (Pepcid) 20 mg PO BID [facility] Last Admin: 10/25/17 10:15 Dose: 20 mg Fluoxetine HCl (Prozac) 40 mg PO DAILY [facility] Last Admin: 10/25/17 10:15 Dose: 40 mg Furosemide (Lasix) 40 mg IVP DAILY [facility] Last Admin: 10/25/17 10:15 Dose: 40 mg Home Med (Patient's Own Topical) 0 gm TOP BID [facility] Last Admin: 10/25/17 10:16 Dose: Not Given Home Med (Patient's Own Topical) 0 gm TOP BID [facility] Last Admin: 10/25/17 10:16 Dose: Not Given Insulin Aspart (Novolog) 0 unit SC ACHS [facility] PRN Reason: Protocol Last Admin: 10/25/17 13:12 Dose: 6 unit Insulin Detemir (Levemir) 35 unit SC HS [facility] Last Admin: 10/24/17 22:36 Dose: 35 unit Insulin Human Isoph/Insulin Regular (Novolin 70/30 (70/30 Units/Ml) 10 Ml) 10 units SC BID [facility] Last Admin: 10/25/17 10:15 Dose: 10 units Loratadine (Claritin) 10 mg PO DAILY [facility] Last Admin: 10/25/17 10:15 Dose: 10 mg Multivitamins (Hexavitamin) 1 tab PO DAILY [facility] Last Admin: 10/25/17 10:15 Dose: 1 tab Mascx-0-Rtgr Ethyl Esters (Lovaza) 1 gm PO DAILY [facility] Last Admin: 10/25/17 10:15 Dose: 1 gm Polymyxin/Trimethoprim Sulfate (Polytrim Ophth Soln) 0 ml OS Q6H [facility] Last Admin: 10/25/17 13:12 Dose: 1 drop Ranolazine (Ranexa) 1,000 mg PO BID [facility] Last Admin: 10/25/17 10:15 Dose: 1,000 mg Rosuvastatin Calcium (Crestor) 20 mg PO HS [facility] Temazepam (Restoril) 15 mg PO HS PRN PRN Reason: Sleep Last Admin: 10/25/17 00:25 Dose: 15 mg - Labs Labs: 10/25/17 13:56 10/25/17 13:56 PT 11.2 SECONDS (9.7-12.2) 10/22/17 06:02 INR 1.0 10/22/17 06:02 APTT 29 SECONDS (21-34) 10/22/17 06:02 Assessment and Plan (1) ESPERANZA (obstructive sleep apnea) Status: Acute (2) Asthma Status: Acute (3) CHF (congestive heart failure) Status: Acute
--- NOTE | 2017-10-25 21:36 | CP.PCM.PN ---
Subjective - Date & Time of Evaluation Date of Evaluation: 10/25/17 Time of Evaluation: 11:00 - Subjective Subjective: clinically same Objective - Vital Signs/Intake and Output Vital Signs (last 24 hours): Temp Pulse Resp BP Pulse Ox 97.2 F L 82 20 109/74 94 L 10/25/17 15:51 10/25/17 16:00 10/25/17 15:51 10/25/17 15:51 10/25/17 15:51 - Medications Medications: Current Medications Albuterol/Ipratropium (Duoneb 3 Mg/0.5 Mg (3 Ml) Ud) 3 ml INH RQ6 [facility] Last Admin: 10/25/17 19:03 Dose: 3 ml Aspirin (Ecotrin) 81 mg PO DAILY [facility] Last Admin: 10/25/17 10:15 Dose: 81 mg Clopidogrel Bisulfate (Plavix) 75 mg PO DAILY [facility] Last Admin: 10/25/17 10:15 Dose: 75 mg Enoxaparin Sodium (Lovenox) 40 mg SC DAILY [facility] Last Admin: 10/25/17 10:15 Dose: 40 mg Famotidine (Pepcid) 20 mg PO BID [facility] Last Admin: 10/25/17 17:51 Dose: 20 mg Fluoxetine HCl (Prozac) 40 mg PO DAILY [facility] Last Admin: 10/25/17 10:15 Dose: 40 mg Furosemide (Lasix) 40 mg IVP DAILY [facility] Last Admin: 10/25/17 10:15 Dose: 40 mg Home Med (Patient's Own Topical) 0 gm TOP BID [facility] Last Admin: 10/25/17 17:55 Dose: 1 gm Home Med (Patient's Own Topical) 0 gm TOP BID [facility] Last Admin: 10/25/17 17:54 Dose: 1 gm [facility]ulin [facility] Reason: Protocol Last Admin: 10/25/17 17:53 Dose: 3 unit Insulin Detemir (Levemir) 35 unit SC HS [facility] Last Admin: 10/24/17 22:36 Dose: 35 unit Insulin Human Isoph/Insulin Regular (Novolin 70/30 (70/30 Units/Ml) 10 Ml) 10 units SC BID [facility] Last Admin: 10/25/17 17:52 Dose: 10 units Loratadine (Claritin) 10 mg PO DAILY [facility] Last Admin: 10/25/17 10:15 Dose: 10 mg Multivitamins (Hexavitamin) 1 tab PO DAILY [facility] Last Admin: 10/25/17 10:15 Dose: 1 tab [id number]-[id number] Ethyl Esters (Lovaza) 1 gm PO DAILY [facility] Last Admin: 10/25/17 10:15 Dose: 1 gm Polymyxin/Trimethoprim Sulfate (Polytrim Ophth Soln) 0 ml OS Q6H [facility] Last Admin: 10/25/17 17:54 Dose: 1 drop Ranolazine (Ranexa) 1,000 mg PO BID [facility] Last Admin: 10/25/17 17:51 Dose: 1,000 mg Rosuvastatin Calcium (Crestor) 20 mg PO HS [facility] Temazepam (Restoril) 15 mg PO HS PRN PRN Reason: Sleep Last Admin: 10/25/17 00:25 Dose: 15 mg - Labs Labs: 10/25/17 13:56 10/25/17 13:56 PT 11.2 SECONDS (9.7-12.2) 10/22/17 06:02 INR 1.0 10/22/17 06:02 APTT 29 SECONDS (21-34) 10/22/17 06:02 - Constitutional Appears: Well - Head Exam Head Exam: ATRAUMATIC, NORMAL INSPECTION, NORMOCEPHALIC - Eye Exam Eye Exam: EOMI, Normal appearance, PERRL Pupil Exam: NORMAL ACCOMODATION, PERRL - ENT Exam ENT Exam: Mucous Membranes Moist, Normal Exam - Neck Exam Neck Exam: Full ROM, Normal Inspection. absent: Lymphadenopathy - Respiratory Exam Respiratory Exam: Decreased Breath Sounds - Cardiovascular Exam Cardiovascular Exam: REGULAR RHYTHM, +S1, +S2 - GI/Abdominal Exam GI & Abdominal Exam: Soft, Diminished Bowel Sounds - Rectal Exam Rectal Exam: Deferred
[2017-10-25] MEDS: Insulin Detemir 100 units/ml Vial (Levemir) SC SCH (22:23)
[2017-10-26] MEDS: Albuterol-Ipratrop 3 mg / 0.5 (3 ml) UD INH SCH ×4 (01:08→20:02)
[2017-10-26] MEDS: Polymyxin/Trimethoprim Ophth Soln OS SCH ×3 (05:53→18:41)
[2017-10-26 06:24] LABS: BASO % 0.7 % (0.0-2.0); EOS # 0.1 K/uL (0.0-0.7); HEMOGLOBIN 14.7 g/dL (11.0-16.0); LYMPH # 1.7 K/uL (1.0-4.3); LYMPH % 33.9 % (20.0-40.0); MEAN CELL VOLUME 94.6 fL (81.0-99.0); MEAN CORPUSCULAR HEMOGLOBIN 32.3 pg (27.0-31.0); MEAN CORPUSCULAR HGB CONC 34.2 g/dL (33.0-37.0); MEAN PLATELET VOLUME 10.1 fL (7.2-11.7); MONO # 0.6 K/uL (0.0-0.8); MONO % 12.9 % (0.0-10.0); NEUT # 2.5 K/uL (1.8-7.0); NEUT % 51.5 % (50.0-75.0); NRBC % 0.2 % (0.0-2.0); RBC 4.56 Mil/uL (3.80-5.20); RED CELL DISTRIBUTION WIDTH 14.7 % (11.5-14.5); WHITE BLOOD COUNT 4.9 K/uL (4.8-10.8)
[2017-10-26 07:41] LABS: ALB/GLOB RATIO 1.1 (1.0-2.1); ALBUMIN 4.1 g/dL (3.5-5.0); ALT/SGPT 45 U/L (9-52); AST/SGOT 40 U/L (14-36); BLOOD UREA NITROGEN 22 mg/dL (7-17); CALCIUM 9.2 mg/dl (8.6-10.4); GFR AFRICAN-AMERICAN > 60; GFR NON-AFRICAN AMERICAN > 60
--- NOTE | 2017-10-26 07:43 | CP.PCM.PN ---
<WadebrandinKurt - Last Filed: 10/26/17 19:22> Subjective - Date & Time of Evaluation Date of Evaluation: 10/26/17 Time of Evaluation: 08:10 - Subjective Subjective: PGY2 Resident - Medicine Progress Note Patient seen and examined at bedside. No acute distress. No overnight events. Patient reports continued intermittent headache located in the occipital region and frontal region. She states this has been present intermittently for the last 2 weeks. Denies overt weakness. Walking and OOB to chair. Patient for CT angio tomorrow morning (allergy protocol in place). Currently denies fever, chills, chest pain, palpitations, dyspnea, diarrhea/constipation. 12-point review of systems is otherwise negative without any additional acute complaints. Objective - Vital Signs/Intake and Output Vital Signs (last 24 hours): Temp Pulse Resp BP Pulse Ox 97.4 F L 76 20 117/80 96 10/26/17 04:05 10/26/17 06:20 10/26/17 06:20 10/26/17 06:20 10/26/17 04:05 Intake and Output: 10/26/17 10/26/17 06:59 18:59 Intake Total 320 Balance 320 - Medications Medications: Current Medications Albuterol/Ipratropium (Duoneb 3 Mg/0.5 Mg (3 Ml) Ud) 3 ml INH RQ6 [facility] Last Admin: 10/26/17 07:25 Dose: 3 ml Aspirin (Ecotrin) 81 mg PO DAILY [facility] Last Admin: 10/25/17 10:15 Dose: 81 mg Clopidogrel Bisulfate (Plavix) 75 mg PO DAILY [facility] Last Admin: 10/25/17 10:15 Dose: 75 mg Enoxaparin Sodium (Lovenox) 40 mg SC DAILY [facility] Last Admin: 10/25/17 10:15 Dose: 40 mg Famotidine (Pepcid) 20 mg PO BID [facility] Last Admin: 10/25/17 17:51 Dose: 20 mg Fluoxetine HCl (Prozac) 40 mg PO DAILY [facility] Last Admin: 10/25/17 10:15 Dose: 40 mg Furosemide (Lasix) 40 mg IVP DAILY [facility] Last Admin: 10/25/17 10:15 Dose: 40 mg Home Med (Patient's Own Topical) 0 gm TOP BID [facility] Last Admin: 10/25/17 17:55 Dose: 1 gm Home Med (Patient's Own Topical) 0 gm TOP BID [facility] Last Admin: 10/25/17 17:54 Dose: 1 gm Insulin Aspart (Novolog) 0 unit SC ACHS [facility] PRN Reason: Protocol Last Admin: 10/25/17 22:19 Dose: Not Given Insulin Detemir (Levemir) 35 unit SC HS [facility] Last Admin: 10/25/17 22:23 Dose: 35 unit Insulin Human Isoph/Insulin Regular (Novolin 70/30 (70/30 Units/Ml) 10 Ml) 10 units SC BID [facility] Last Admin: 10/25/17 17:52 Dose: 10 units Loratadine (Claritin) 10 mg PO DAILY [facility] Last Admin: 10/25/17 10:15 Dose: 10 mg Multivitamins (Hexavitamin) 1 tab PO DAILY [facility] Last Admin: 10/25/17 10:15 Dose: 1 tab Fwhpa-9-Idom Ethyl Esters (Lovaza) 1 gm PO DAILY [facility] Last Admin: 10/25/17 10:15 Dose: 1 gm Polymyxin/Trimethoprim Sulfate (Polytrim Ophth Soln) 0 ml OS Q6H [facility] Last Admin: 10/26/17 05:53 Dose: 1 drop Ranolazine (Ranexa) 1,000 mg PO BID [facility] Last Admin: 10/25/17 17:51 Dose: 1,000 mg Rosuvastatin Calcium (Crestor) 20 mg PO HS [facility] Last Admin: 10/25/17 22:23 Dose: 20 mg Temazepam (Restoril) 15 mg PO HS PRN PRN Reason: Sleep Last Admin: 10/25/17 23:52 Dose: 15 mg - Labs Labs: 10/26/17 06:17 10/26/17 07:12 PT 11.2 SECONDS (9.7-12.2) 10/22/17 06:02 INR 1.0 10/22/17 06:02 APTT 29 SECONDS (21-34) 10/22/17 06:02 - Additional Findings Additional findings: - Constitutional Appears: Non-toxic - Head Exam Head Exam: NORMAL INSPECTION - Eye Exam Eye Exam: Normal appearance - ENT Exam ENT Exam: Mucous Membranes Moist - Neck Exam Neck Exam: Full ROM - Respiratory Exam Respiratory Exam: NORMAL BREATHING PATTERN, Clear to Auscultation Bilateral - Cardiovascular Exam Cardiovascular Exam: REGULAR RHYTHM, S1, S2 - GI/Abdominal Exam GI & Abdominal Exam: Normal Bowel Sounds - Extremities Exam Extremities Exam: Pedal Edema - Back Exam Back Exam: NORMAL INSPECTION - Neurological Exam Neurological Exam: Alert, Oriented x3 - Psychiatric Exam Psychiatric exam: Normal Affect - Skin Skin Exam: Normal Color Assessment and Plan - Assessment and Plan (Free Text) Assessment: Hx CVA 10/26: Carotid duplex - R side clear. L side 60-70% stenosis of the L proximal internal carotid. Patient for CT angio tomorrow morning at 8am. Patient has a seafood allergy. Per Dr. Stauffer's recommendation, patient will be following protocol for allergy - Prednisone 50mg PO at 13hrs, 6hrs, and 1hr before contrast. Benadryl 50mg PO 1hr before contrast. Patient will followup with Dr. Stauffer to have MRI/MRA performed as outpatient. 10/25: MRI not performed because pt had cardiac stent placed several wks ago. [employer] ischemic process dx 2015 c/o tingling in hands Neuro consult, Dr. Francois -Continue ASA and plavix to prevent stroke CAD (coronary artery disease) 10/26: Carotid duplex - R side clear. L side 60-70% stenosis of the L proximal internal carotid. s/p CABGx4 in 2008 s/p stent of the circumflex several wks ago. continue antiplatelet therapy. Trial of lasix Plavix) 75 mg PO DAILY [facility] Ecotrin) 81 mg PO DAILY [facility] Crestor) 20 mg PO HS [facility] Lovaza) 1 gm PO DAILY [facility] HTN (hypertension) blood pressure control ESPERANZA (obstructive sleep apnea) continue CPAP at night Asthma continue nebulizer treatment. Add inhaled steroids Duoneb 3 Mg/0.5 Mg (3 Ml) Ud) 3 ml INH RQ6 [facility] Claritin) 10 mg PO DAILY [facility] CHF (congestive heart failure) continue Lasix Lasix) 40 mg IVP DAILY [facility] Cardiology workup Diabetes 10/26: Glucose elevated at 412 today. Patient receive 10u from sliding scale. Increase Novolin 70/30 to 14u AM and 10u PM. Novolog) 0 unit SC ACHS [facility] Levemir) 35 unit SC HS [facility] Novolin 14u AM / 10u PM Anxiety Prozac) 40 mg PO DAILY [facility] Prophylaxis Pepcid) 20 mg PO BID [facility] Case discussed with attending. All medical management as per Dr. Rubi Mcelroy. <Mcelroy,Jayeshkuma S - Last Filed: 10/26/17 23:27> Objective - Vital Signs/Intake and Output Vital Signs (last 24 hours): Temp Pulse Resp BP Pulse Ox 98 F 78 20 149/50 L 98 10/26/17 15:40 10/26/17 16:00 10/26/17 15:40 10/26/17 15:40 10/26/17 15:40 - Medications Medications: Current Medications Acetaminophen (Tylenol 325mg Tab) 650 mg PO Q6 PRN PRN Reason: Headache Last Admin: 10/26/17 12:09 Dose: 650 mg Albuterol/Ipratropium (Duoneb 3 Mg/0.5 Mg (3 Ml) Ud) 3 ml INH RQ6 [facility] Last Admin: 10/26/17 20:02 Dose: 3 ml Aspirin (Ecotrin) 81 mg PO DAILY [facility] Last Admin: 10/26/17 09:09 Dose: 81 mg Clopidogrel Bisulfate (Plavix) 75 mg PO DAILY [facility] Last Admin: 10/26/17 09:08 Dose: 75 mg Diphenhydramine HCl (Benadryl) 50 mg PO ONCE ONE Stop: 10/27/17 07:01 Enoxaparin Sodium (Lovenox) 40 mg SC DAILY [facility] Last Admin: 10/26/17 09:07 Dose: 40 mg Famotidine (Pepcid) 20 mg PO BID [facility] Last Admin: 10/26/17 18:41 Dose: 20 mg Fluoxetine HCl (Prozac) 40 mg PO DAILY [facility] Last Admin: 10/26/17 09:07 Dose: 40 mg Furosemide (Lasix) 40 mg IVP DAILY [facility] Last Admin: 10/26/17 09:10 Dose: 40 mg Home Med (Patient's Own Topical) 0 gm TOP BID [facility] Last Admin: 10/26/17 18:42 Dose: 1 gm Home Med (Patient's Own Topical) 0 gm TOP BID [facility] Last Admin: 10/26/17 18:42 Dose: 1 gm Insulin Aspart (Novolog) 0 unit SC ACHS [facility] PRN Reason: Protocol Last Admin: 10/26/17 21:53 Dose: Not Given Insulin Detemir (Levemir) 35 unit SC HS [facility] Last Admin: 10/26/17 22:01 Dose: 35 unit Insulin Human Isoph/Insulin Regular (Novolin 70/30 (70/30 Units/Ml) 10 Ml) 14 units SC ACB [facility] Insulin Human Isoph/Insulin Regular (Novolin 70/30 (70/30 Units/Ml) 10 Ml) 10 units SC QPM [facility] Last Admin: 10/26/17 18:40 Dose: 10 units Loratadine (Claritin) 10 mg PO DAILY [facility] Last Admin: 10/26/17 09:09 Dose: 10 mg Multivitamins (Hexavitamin) 1 tab PO DAILY [facility] Last Admin: 10/26/17 09:09 Dose: 1 tab Nbotf-3-Rpiv Ethyl Esters (Lovaza) 1 gm PO DAILY [facility] Last Admin: 10/26/17 09:08 Dose: 1 gm Polymyxin/Trimethoprim Sulfate (Polytrim Ophth Soln) 0 ml OS Q6H [facility] Last Admin: 10/26/17 18:41 Dose: 1 drop Prednisone (Prednisone Tab) 50 mg PO Q6H [facility] Stop: 10/27/17 07:01 Last Admin: 10/26/17 19:00 Dose: 50 mg Ranolazine (Ranexa) 1,000 mg PO BID [facility] Last Admin: 10/26/17 18:41 Dose: 1,000 mg Rosuvastatin Calcium (Crestor) 20 mg PO HS [facility] Last Admin: 10/26/17 22:01 Dose: 20 mg Temazepam (Restoril) 15 mg PO HS PRN PRN Reason: Sleep Last Admin: 10/25/17 23:52 Dose: 15 mg - Labs Labs: 10/26/17 06:17 10/26/17 07:12 PT 11.2 SECONDS (9.7-12.2) 10/22/17 06:02 INR 1.0 10/22/17 06:02 APTT 29 SECONDS (21-34) 10/22/17 06:02 Assessment and Plan (1) Asthma Status: Acute (2) CHF (congestive heart failure) Status: Acute (3) Dyspnea Status: Acute (4) ESPERANZA (obstructive sleep apnea) Status: Acute (5) Paresthesia Status: Acute (6) Abdominal pain Status: Acute (7) Abrasion of face Status: Acute (8) Acute chest pain Status: Acute (9) Acute coronary syndrome Status: Acute (10) Allergic urticaria Status: Acute (11) Anemia Status: Acute (12) Angina at rest Status: Acute (13) Anxiety Status: Acute (14) Arthritis Status: Acute (15) CAD (coronary artery disease) Status: Acute (16) Chest pain Status: Acute (17) Chest pain Status: Acute (18) Cholelithiasis without obstruction Status: Acute (19) Conjunctivitis Status: Acute (20) Diabetes Status: Acute (21) Dizziness Status: Acute (22) Dizziness Status: Acute (23) Elevated LFTs Status: Acute (24) Elevated liver enzymes Status: Acute (25) Elevated troponin Status: Acute (26) Gastroenteritis Status: Acute (27) Generalized edema Status: Acute (28) HTN (hypertension) Status: Acute (29) Headache Status: Acute (30) Hematuria Status: Acute (31) Hypercholesteremia Status: Acute (32) Hyperkalemia Status: Acute (33) Hyperlipemia Status: Acute (34) Knee pain Status: Acute (35) Lip numbness Status: Acute (36) NSTEMI (non-ST elevated myocardial infarction) Status: Acute (37) Odynophagia Status: Acute (38) Osteoarthritis Status: Acute (39) PFO (patent foramen ovale) Status: Acute (40) Personal history of coronary artery disease Status: Acute (41) Precordial pain Status: Acute (42) Prophylactic measure Status: Acute (43) Psychiatric disorder Status: Acute (44) Shoulder strain Status: Acute (45) TIA (transient ischemic attack) Status: Acute (46) UTI (urinary tract infection) Status: Acute (47) Vaginal candidiasis Status: Acute (48) Wound infection Status: Acute (49) Wrist injury Status: Acute (50) Diabetes type 2, uncontrolled Status: Chronic (51) Status post coronary angioplasty Status: Chronic Attending/Attestation - Attestation I have personally seen and examined this patient.: Yes I have fully participated in the care of the patient.: Yes I have reviewed all pertinent clinical information, including history, physical exam and plan: Yes Notes (Text): 10/26/17 23:26 case seen and d.w staff and resident, concurred with finding and management.
[2017-10-26] MEDS: (Novolog) Insulin Aspart, Recombinant 100 u/ml 10 ml vial SC SCH ×4 (08:27→21:53)
[2017-10-26] MEDS: Enoxaparin 40 mg Syringe SC SCH (09:07)
[2017-10-26] MEDS: Omega-3-Acid Ethyl Esters 1 GM Cap PO SCH (09:08)
[2017-10-26] MEDS: Ranolazine 500 mg Extended Release Tablets PO SCH ×2 (09:08→18:41)
[2017-10-26] MEDS: Multiple Vitamins Tab PO SCH (09:09)
[2017-10-26] MEDS: (Novolin 70/30) NPH/Regular 70/30 Units/ml 10 ml vial SC SCH ×2 (09:10→18:40)
[2017-10-26] MEDS: CALCIPOTRIENE 0.005% TOP SCH ×2 (09:11→18:42)
[2017-10-26] MEDS: EUCRISA 2% TOP SCH ×2 (09:11→18:42)
--- NOTE | 2017-10-26 12:20 | PN ---
DATE: 10/26/2017 TIME OF EVALUATION: 07:10 a.m. NEUROLOGICAL PROBLEM: History of brainstem stroke in the past, status post recent stent placement for her coronary artery disease. PHYSICAL EXAMINATION: VITAL SIGNS: Blood pressure 117/80, mean arterial pressure 92, respiratory rate 18, temperature afebrile. NEUROLOGIC: The patient complaining of headache, holding ice pack on her head. This has been going on and off for the last two weeks. Not associating with visual or bulbar dysfunction. No focal weakness. Rest of the examination is normal, unchanged compared with the previous exam. WORKUP: Carotid Doppler shows left proximal 60% to 70% occlusion in left ICA territory. The patient is asymptomatic at present. RECOMMENDATIONS: The patient should have MRA of the brain, which is on hold due to the recent stent. The patient is scheduled to have a CT angiogram to further analyze her asymptomatic left carotid artery stenosis. Continue the present management for stroke prophylaxis. Headache can be treated symptomatically because the headache is not showing any localizing sign at present. The patient will follow closely with you. James Stauffer MD
--- NOTE | 2017-10-26 13:25 | CP.PCM.PN ---
Subjective - Date & Time of Evaluation Date of Evaluation: 10/26/17 Time of Evaluation: 09:40 - Subjective Subjective: clinically same Objective - Vital Signs/Intake and Output Vital Signs (last 24 hours): Temp Pulse Resp BP Pulse Ox 97.6 F 75 18 131/64 99 10/26/17 07:00 10/26/17 07:00 10/26/17 07:00 10/26/17 09:10 10/26/17 07:00 Intake and Output: 10/26/17 10/26/17 06:59 18:59 Intake Total 320 Balance 320 - Medications Medications: Current Medications Acetaminophen (Tylenol 325mg Tab) 650 mg PO Q6 PRN PRN Reason: Headache Last Admin: 10/26/17 12:09 Dose: 650 mg Albuterol/Ipratropium (Duoneb 3 Mg/0.5 Mg (3 Ml) Ud) 3 ml INH RQ6 [facility] Last Admin: 10/26/17 13:09 Dose: 3 ml Aspirin (Ecotrin) 81 mg PO DAILY [facility] Last Admin: 10/26/17 09:09 Dose: 81 mg Clopidogrel Bisulfate (Plavix) 75 mg PO DAILY [facility] Last Admin: 10/26/17 09:08 Dose: 75 mg Enoxaparin Sodium (Lovenox) 40 mg SC DAILY [facility] Last Admin: 10/26/17 09:07 Dose: 40 mg Famotidine (Pepcid) 20 mg PO BID [facility] Last Admin: 10/26/17 09:08 Dose: 20 mg Fluoxetine HCl (Prozac) 40 mg PO DAILY [facility] Last Admin: 10/26/17 09:07 Dose: 40 mg Furosemide (Lasix) 40 mg IVP DAILY [facility] Last Admin: 10/26/17 09:10 Dose: 40 mg Home Med (Patient's Own Topical) 0 gm TOP BID [facility] Last Admin: 10/26/17 09:11 Dose: 1 gm Home Med (Patient's Own Topical) 0 gm TOP BID [facility] Last Admin: 10/26/17 09:11 Dose: 1 gm Insulin Aspart (Novolog) 0 unit SC ACHS [facility] PRN Reason: Protocol Last Admin: 10/26/17 12:09 Dose: 10 unit Insulin Detemir (Levemir) 35 unit SC HS [facility] Last Admin: 10/25/17 22:23 Dose: 35 unit Insulin Human Isoph/Insulin Regular (Novolin 70/30 (70/30 Units/Ml) 10 Ml) 14 units SC ACB [facility] Insulin Human Isoph/Insulin Regular (Novolin 70/30 (70/30 Units/Ml) 10 Ml) 10 units SC QPM [facility] Loratadine (Claritin) 10 mg PO DAILY [facility] Last Admin: 10/26/17 09:09 Dose: 10 mg Multivitamins (Hexavitamin) 1 tab PO DAILY [facility] Last Admin: 10/26/17 09:09 Dose: 1 tab Tdwii-6-Ynud Ethyl Esters (Lovaza) 1 gm PO DAILY [facility] Last Admin: 10/26/17 09:08 Dose: 1 gm Polymyxin/Trimethoprim Sulfate (Polytrim Ophth Soln) 0 ml OS Q6H [facility] Last Admin: 10/26/17 12:25 Dose: 1 drop Ranolazine (Ranexa) 1,000 mg PO BID [facility] Last Admin: 10/26/17 09:08 Dose: 1,000 mg Rosuvastatin Calcium (Crestor) 20 mg PO HS [facility] Last Admin: 10/25/17 22:23 Dose: 20 mg Temazepam (Restoril) 15 mg PO HS PRN PRN Reason: Sleep Last Admin: 10/25/17 23:52 Dose: 15 mg - Labs Labs: 10/26/17 06:17 10/26/17 07:12 PT 11.2 SECONDS (9.7-12.2) 10/22/17 06:02 INR 1.0 10/22/17 06:02 APTT 29 SECONDS (21-34) 10/22/17 06:02 - Constitutional Appears: Well - Head Exam Head Exam: ATRAUMATIC, NORMAL INSPECTION, NORMOCEPHALIC - Eye Exam Eye Exam: EOMI, Normal appearance, PERRL Pupil Exam: NORMAL ACCOMODATION, PERRL - ENT Exam ENT Exam: Mucous Membranes Moist, Normal Exam - Neck Exam Neck Exam: Full ROM, Normal Inspection. absent: Lymphadenopathy - Respiratory Exam Respiratory Exam: Decreased Breath Sounds - Cardiovascular Exam Cardiovascular Exam: REGULAR RHYTHM, +S1, +S2 - GI/Abdominal Exam GI & Abdominal Exam: Soft, Diminished Bowel Sounds - Rectal Exam Rectal Exam: Deferred Assessment and Plan (1) Asthma Status: Acute (2) CHF (congestive heart failure) Status: Acute (3) Dyspnea Status: Acute (4) ESPERANZA (obstructive sleep apnea) Status: Acute (5) Paresthesia Status: Acute (6) Abdominal pain Status: Acute (7) Abrasion of face Status: Acute (8) Acute chest pain Status: Acute (9) Acute coronary syndrome Status: Acute (10) Allergic urticaria Status: Acute (11) Anemia Status: Acute (12) Angina at rest Status: Acute (13) Anxiety Status: Acute (14) Arthritis Status: Acute (15) CAD (coronary artery disease) Status: Acute (16) Chest pain Status: Acute (17) Chest pain Status: Acute (18) Cholelithiasis without obstruction Status: Acute (19) Conjunctivitis Status: Acute (20) Diabetes Status: Acute (21) Dizziness Status: Acute (22) Dizziness Status: Acute (23) Elevated LFTs Status: Acute (24) Elevated liver enzymes Status: Acute (25) Elevated troponin Status: Acute (26) Gastroenteritis Status: Acute (27) Generalized edema Status: Acute (28) HTN (hypertension) Status: Acute (29) Headache Status: Acute (30) Hematuria Status: Acute (31) Hypercholesteremia Status: Acute (32) Hyperkalemia Status: Acute (33) Hyperlipemia Status: Acute (34) Knee pain Status: Acute (35) Lip numbness Status: Acute (36) NSTEMI (non-ST elevated myocardial infarction) Status: Acute (37) Odynophagia Status: Acute (38) Osteoarthritis Status: Acute (39) PFO (patent foramen ovale) Status: Acute (40) Personal history of coronary artery disease Status: Acute (41) Precordial pain Status: Acute (42) Prophylactic measure Status: Acute (43) Psychiatric disorder Status: Acute (44) Shoulder strain Status: Acute (45) TIA (transient ischemic attack) Status: Acute (46) UTI (urinary tract infection) Status: Acute (47) Vaginal candidiasis Status: Acute (48) Wound infection Status: Acute (49) Wrist injury Status: Acute (50) Diabetes type 2, uncontrolled Status: Chronic (51) Status post coronary angioplasty Status: Chronic - Assessment and Plan (Free Text) Plan: Assessment: Hx CVA 10/26: Carotid duplex - R side clear. L side 60-70% stenosis of the L proximal internal carotid. Patient for CT angio tomorrow morning at 8am. Patient has a seafood allergy. Per Dr. Stauffer's recommendation, patient will be following protocol for allergy - Prednisone 50mg PO at 13hrs, 6hrs, and 1hr before contrast. Benadryl 50mg PO 1hr before contrast. Patient will followup with Dr. Stauffer to have MRI/MRA performed as outpatient. 10/25: MRI not performed because pt had cardiac stent placed several wks ago. [employer] ischemic process dx 2015 c/o tingling in hands Neuro consult, Dr. Francois -Continue ASA and plavix to prevent stroke CAD (coronary artery disease) 10/26: Carotid duplex - R side clear. L side 60-70% stenosis of the L proximal internal carotid. s/p CABGx4 in 2008 s/p stent of the circumflex several wks ago. continue antiplatelet therapy. Trial of lasix Plavix) 75 mg PO DAILY [facility] Ecotrin) 81 mg PO DAILY [facility] Crestor) 20 mg PO HS [facility] Lovaza) 1 gm PO DAILY [facility] HTN (hypertension) blood pressure control ESPERANZA (obstructive sleep apnea) continue CPAP at night Asthma continue nebulizer treatment. Add inhaled steroids Duoneb 3 Mg/0.5 Mg (3 Ml) Ud) 3 ml INH RQ6 [facility] Claritin) 10 mg PO DAILY [facility] CHF (congestive heart failure) continue Lasix Lasix) 40 mg IVP DAILY [facility] Cardiology workup Diabetes 10/26: Glucose elevated at 412 today. Patient receive 10u from sliding scale. Increase Novolin 70/30 to 14u AM and 10u PM. Novolog) 0 unit SC ACHS [facility] Levemir) 35 unit SC HS [facility] Novolin 14u AM / 10u PM Anxiety Prozac) 40 mg PO DAILY [facility] Prophylaxis Pepcid) 20 mg PO BID [facility]
--- NOTE | 2017-10-26 16:09 | VASCLAB ---
PROCEDURE: HISTORY: tia COMPARISON: Carotid ultrasound dated 11/04/2016. TECHNIQUE: Grayscale and duplex Doppler evaluation of the cervical carotid and vertebral arteries were performed. The common carotid, carotid bifurcations and cervical Internal Carotid Artery (ICA) and proximal External Carotid Artery (ECA) were evaluated. The vertebral arteries were evaluated for gross patency and flow direction. Report prepared by ELEUTERIO Jett FINDINGS: RIGHT CAROTID ARTERIES: 1. Common Carotid Artery: No significant focal plaque formation of the right common carotid artery. Maximum Peak Systolic velocity: 89 cm/sec: End-diastolic velocity 15 cm/sec. 2. Carotid Bifurcation: No significant focal plaque formation. Maximum Peak Systolic velocity: 94 cm/sec: End-diastolic velocity 21 cm/sec. 3. Internal Carotid Artery: Plaque description: 3.1. Proximal Segment: Peak systolic velocity 72 cm/sec: End-diastolic velocity 19 cm/sec - % stenosis 0-15% 3.2. Middle Segment: Peak systolic velocity 71 cm/sec: End-diastolic velocity 27 cm/sec - % stenosis 0-15% 3.3. Distal Segment: Peak systolic velocity cm/sec: End-diastolic velocity cm/sec - % stenosis 4. External Carotid Artery: No significant focal plaque formation. Peak systolic velocity 100 cm/sec 5. ICA/CCA Ratio: 1.2 LEFT CAROTID ARTERIES: 1. Common Carotid Artery: No significant focal plaque formation of the left common carotid artery. Maximum Peak Systolic velocity: 61 cm/sec: End-diastolic velocity 14 cm/sec. 2. Carotid Bifurcation: No significant focal plaque formation. Maximum Peak Systolic velocity: 121 cm/sec: End-diastolic velocity 39 cm/sec. 3. Internal Carotid Artery: Plaque description: 3.1. Proximal Segment: Peak systolic velocity 181 cm/sec: End-diastolic velocity 36 cm/sec - % stenosis 60-70% 3.2. Middle Segment: Peak systolic velocity 84 cm/sec: End-diastolic velocity 22 cm/sec - % stenosis 0-15% 3.3. Distal Segment: Peak systolic velocity 62 cm/sec: End-diastolic velocity 19 cm/sec - % stenosis 0-15% 4. External Carotid Artery: No significant focal plaque formation. Peak systolic velocity 95 cm/sec 5. ICA/CCA Ratio: 2.0 VERTEBRAL ARTERIES: 1. Right Vertebral Artery: The right vertebral artery flow direction is antegrade. 2. Left Vertebral Artery: The left vertebral artery flow direction is antegrade. OTHER FINDINGS: 1. Right Brachial Blood pressure: 130 mmHg. 2. Left Brachial Blood pressure: 120 mmHg. IMPRESSION: RIGHT: Duplex scan does not suggest hemodynamically significant stenosis of the right extracranial carotid arteries. LEFT: 60-70% stenosis of the left proximal internal carotid artery.
--- NOTE | 2017-10-26 16:43 | CP.PCM.PN ---
Subjective - Date & Time of Evaluation Date of Evaluation: 10/26/17 Time of Evaluation: 10:30 - Subjective Subjective: Patient seen and examined at bedside. No acute events overnight per nursing. Today the patient feels better and offered no complaints other than headaches and parasthesias. Assessment and Plan: 1. ESPERANZA - CPAP at night 2. Asthma - Saturating 97% on RA - nebulizer treatments - add inhaled steroids Objective - Vital Signs/Intake and Output Vital Signs (last 24 hours): Temp Pulse Resp BP Pulse Ox 98 F 82 20 149/50 L 98 10/26/17 15:40 10/26/17 15:40 10/26/17 15:40 10/26/17 15:40 10/26/17 15:40 Intake and Output: 10/26/17 10/26/17 06:59 18:59 Intake Total 320 Balance 320 - Medications Medications: Current Medications Acetaminophen (Tylenol 325mg Tab) 650 mg PO Q6 PRN PRN Reason: Headache Last Admin: 10/26/17 12:09 Dose: 650 mg Albuterol/Ipratropium (Duoneb 3 Mg/0.5 Mg (3 Ml) Ud) 3 ml INH RQ6 [facility] Last Admin: 10/26/17 13:09 Dose: 3 ml Aspirin (Ecotrin) 81 mg PO DAILY [facility] Last Admin: 10/26/17 09:09 Dose: 81 mg Clopidogrel Bisulfate (Plavix) 75 mg PO DAILY [facility] Last Admin: 10/26/17 09:08 Dose: 75 mg Diphenhydramine HCl (Benadryl) 50 mg PO ONCE ONE Stop: 10/27/17 07:01 Enoxaparin Sodium (Lovenox) 40 mg SC DAILY [facility] Last Admin: 10/26/17 09:07 Dose: 40 mg Famotidine (Pepcid) 20 mg PO BID [facility] Last Admin: 10/26/17 09:08 Dose: 20 mg Fluoxetine HCl (Prozac) 40 mg PO DAILY [facility] Last Admin: 10/26/17 09:07 Dose: 40 mg Furosemide (Lasix) 40 mg IVP DAILY [facility] Last Admin: 10/26/17 09:10 Dose: 40 mg Home Med (Patient's Own Topical) 0 gm TOP BID [facility] Last Admin: 10/26/17 09:11 Dose: 1 gm Home Med (Patient's Own Topical) 0 gm TOP BID [facility] Last Admin: 10/26/17 09:11 Dose: 1 gm Insulin Aspart (Novolog) 0 unit SC ACHS [facility] PRN Reason: Protocol Last Admin: 10/26/17 12:09 Dose: 10 unit Insulin Detemir (Levemir) 35 unit SC HS [facility] Last Admin: 10/25/17 22:23 Dose: 35 unit Insulin Human Isoph/Insulin Regular (Novolin 70/30 (70/30 Units/Ml) 10 Ml) 14 units SC ACB [facility] Insulin Human Isoph/Insulin Regular (Novolin 70/30 (70/30 Units/Ml) 10 Ml) 10 units SC QPM [facility] Loratadine (Claritin) 10 mg PO DAILY [facility] Last Admin: 10/26/17 09:09 Dose: 10 mg Multivitamins (Hexavitamin) 1 tab PO DAILY [facility] Last Admin: 10/26/17 09:09 Dose: 1 tab Klsvu-3-[id number] Ethyl Esters (Lovaza) 1 gm PO DAILY [facility] Last Admin: 10/26/17 09:08 Dose: 1 gm Polymyxin/Trimethoprim Sulfate (Polytrim Ophth Soln) 0 ml OS Q6H [facility] Last Admin: 10/26/17 12:25 Dose: 1 drop Prednisone (Prednisone Tab) 50 mg PO Q6H [facility] Stop: 10/27/17 07:01 Ranolazine (Ranexa) 1,000 mg PO BID [facility] Last Admin: 10/26/17 09:08 Dose: 1,000 mg Rosuvastatin Calcium (Crestor) 20 mg PO HS [facility] Last Admin: 10/25/17 22:23 Dose: 20 mg Temazepam (Restoril) 15 mg PO HS PRN PRN Reason: Sleep Last Admin: 10/25/17 23:52 Dose: 15 mg - Labs Labs: 10/26/17 06:17 10/26/17 07:12 PT 11.2 SECONDS (9.7-12.2) 10/22/17 06:02 INR 1.0 10/22/17 06:02 APTT 29 SECONDS (21-34) 10/22/17 06:02 Assessment and Plan (1) ESPERANZA (obstructive sleep apnea) Status: Acute (2) Asthma Status: Acute (3) CHF (congestive heart failure) Status: Acute
--- NOTE | 2017-10-26 19:54 | CP.PCM.PN ---
Subjective - Date & Time of Evaluation Date of Evaluation: 10/26/17 Time of Evaluation: 19:30 - Subjective Subjective: patient has no current chest pain or dyspnea. had headache., Objective - Vital Signs/Intake and Output Vital Signs (last 24 hours): Temp Pulse Resp BP Pulse Ox 98 F 78 20 149/50 L 98 10/26/17 15:40 10/26/17 16:00 10/26/17 15:40 10/26/17 15:40 10/26/17 15:40 - Medications Medications: Current Medications Acetaminophen (Tylenol 325mg Tab) 650 mg PO Q6 PRN PRN Reason: Headache Last Admin: 10/26/17 12:09 Dose: 650 mg Albuterol/Ipratropium (Duoneb 3 Mg/0.5 Mg (3 Ml) Ud) 3 ml INH RQ6 [facility] Last Admin: 10/26/17 13:09 Dose: 3 ml Aspirin (Ecotrin) 81 mg PO DAILY [facility] Last Admin: 10/26/17 09:09 Dose: 81 mg Clopidogrel Bisulfate (Plavix) 75 mg PO DAILY [facility] Last Admin: 10/26/17 09:08 Dose: 75 mg Diphenhydramine HCl (Benadryl) 50 mg PO ONCE ONE Stop: 10/27/17 07:01 Enoxaparin Sodium (Lovenox) 40 mg SC DAILY [facility] Last Admin: 10/26/17 09:07 Dose: 40 mg Famotidine (Pepcid) 20 mg PO BID [facility] Last Admin: 10/26/17 18:41 Dose: 20 mg Fluoxetine HCl (Prozac) 40 mg PO DAILY [facility] Last Admin: 10/26/17 09:07 Dose: 40 mg Furosemide (Lasix) 40 mg IVP DAILY [facility] Last Admin: 10/26/17 09:10 Dose: 40 mg Home Med (Patient's Own Topical) 0 gm TOP BID [facility] Last Admin: 10/26/17 18:42 Dose: 1 gm Home Med (Patient's Own Topical) 0 gm TOP BID [facility] Last Admin: 10/26/17 18:42 Dose: 1 gm Insulin Aspart (Novolog) 0 unit SC ACHS [facility] PRN Reason: Protocol Last Admin: 10/26/17 18:44 Dose: 3 unit Insulin Detemir (Levemir) 35 unit SC HS [facility] Last Admin: 05/07/18 22:23 Dose: 35 unit Insulin Human Isoph/Insulin Regular (Novolin 70/30 (70/30 Units/Ml) 10 Ml) 14 units SC ACB [facility] Insulin Human Isoph/Insulin Regular (Novolin 70/30 (70/30 Units/Ml) 10 Ml) 10 units SC QPM [facility] Last Admin: 10/26/17 18:40 Dose: 10 units Loratadine (Claritin) 10 mg PO DAILY [facility] Last Admin: 10/26/17 09:09 Dose: 10 mg Multivitamins (Hexavitamin) 1 tab PO DAILY [facility] Last Admin: 10/26/17 09:09 Dose: 1 tab Alxvb-4-Qniv Ethyl Esters (Lovaza) 1 gm PO DAILY [facility] Last Admin: 10/26/17 09:08 Dose: 1 gm Polymyxin/Trimethoprim Sulfate (Polytrim Ophth Soln) 0 ml OS Q6H [facility] Last Admin: 10/26/17 18:41 Dose: 1 drop Prednisone (Prednisone Tab) 50 mg PO Q6H [facility] Stop: 10/27/17 07:01 Last Admin: 10/26/17 19:00 Dose: 50 mg Ranolazine (Ranexa) 1,000 mg PO BID [facility] Last Admin: 10/26/17 18:41 Dose: 1,000 mg Rosuvastatin Calcium (Crestor) 20 mg PO HS [facility] Last Admin: 10/25/17 22:23 Dose: 20 mg Temazepam (Restoril) 15 mg PO HS PRN PRN Reason: Sleep Last Admin: 10/25/17 23:52 Dose: 15 mg - Labs Labs: 10/26/17 06:17 10/26/17 07:12 PT 11.2 SECONDS (9.7-12.2) 10/22/17 06:02 INR 1.0 10/22/17 06:02 APTT 29 SECONDS (21-34) 10/22/17 06:02 - Constitutional Appears: Non-toxic - Head Exam Head Exam: NORMAL INSPECTION - Eye Exam Eye Exam: Normal appearance - ENT Exam ENT Exam: Mucous Membranes Moist - Neck Exam Neck Exam: Full ROM - Respiratory Exam Respiratory Exam: NORMAL BREATHING PATTERN - Cardiovascular Exam Cardiovascular Exam: REGULAR RHYTHM - GI/Abdominal Exam GI & Abdominal Exam: Normal Bowel Sounds - Rectal Exam Rectal Exam: Deferred - Extremities Exam Extremities Exam: absent: Pedal Edema - Back Exam Back Exam: NORMAL INSPECTION - Neurological Exam Neurological Exam: Alert - Psychiatric Exam Psychiatric exam: Normal Affect - Skin Skin Exam: Normal Color Assessment and Plan (1) CAD (coronary artery disease) Assessment & Plan: s/p PCI left circumflex. medical therapy and blood pressure control. continue ASA/Plavix Status: Acute (2) HTN (hypertension) Assessment & Plan: adjust therapy Status: Acute
[2017-10-26] MEDS: Insulin Detemir 100 units/ml Vial (Levemir) SC SCH (22:01)
[2017-10-27] MEDS: Polymyxin/Trimethoprim Ophth Soln OS SCH ×4 (00:41→18:03)
[2017-10-27] MEDS: Albuterol-Ipratrop 3 mg / 0.5 (3 ml) UD INH SCH ×4 (01:15→20:24)
[2017-10-27 06:21] LABS: BASO % 0.2 % (0.0-2.0); EOS % 0.1 % (0.0-4.0); HEMOGLOBIN 14.9 g/dL (11.0-16.0); LYMPH # 0.9 K/uL (1.0-4.3); LYMPH % 13.8 % (20.0-40.0); MEAN CELL VOLUME 93.6 fL (81.0-99.0); MEAN CORPUSCULAR HGB CONC 34.2 g/dL (33.0-37.0); MEAN PLATELET VOLUME 10.3 fL (7.2-11.7); MONO # 0.1 K/uL (0.0-0.8); NEUT # 5.7 K/uL (1.8-7.0); NEUT % 83.9 % (50.0-75.0); RBC 4.64 Mil/uL (3.80-5.20); RED CELL DISTRIBUTION WIDTH 14.2 % (11.5-14.5); WHITE BLOOD COUNT 6.8 K/uL (4.8-10.8)
[2017-10-27 06:45] LABS: ALB/GLOB RATIO 1.1 (1.0-2.1); ALBUMIN 4.5 g/dL (3.5-5.0); ALT/SGPT 43 U/L (9-52); AST/SGOT 39 U/L (14-36); BLOOD UREA NITROGEN 29 mg/dL (7-17); CALCIUM 9.5 mg/dl (8.6-10.4); GFR AFRICAN-AMERICAN > 60; GFR NON-AFRICAN AMERICAN > 60
[2017-10-27] MEDS ORDERED: Iodixanol 320 MG/ML 100 ML BOTTLE IV ONE (07:39)
[2017-10-27] MEDS: (Novolin 70/30) NPH/Regular 70/30 Units/ml 10 ml vial SC SCH ×2 (07:58→18:02)
[2017-10-27] MEDS: (Novolog) Insulin Aspart, Recombinant 100 u/ml 10 ml vial SC SCH ×3 (08:00→22:15)
[2017-10-27] MEDS ORDERED: MethylPREDNISolone 40 mg Vial IVP STA (09:43)
--- NOTE | 2017-10-27 10:12 | CP.PCM.PN ---
Subjective - Date & Time of Evaluation Date of Evaluation: 10/27/17 Time of Evaluation: 07:10 - Subjective Subjective: PGY2 Resident - Medicine Progress Note Patient seen and examined at bedside. No acute distress. No overnight events. Patient with seafood allergy went for CT angio today following allergy protocol , and developed chest tightness / pain s/p imaging. She was given Nitro SL x2 and Solumedrol 125 IVP once, with resolution of symptoms. EKG was normal. She continue to c/o ALEXANDER in the occipital region and frontal region (present intermittently for the last 2 weeks). Paresthesias in UE persist. Denies overt weakness. Walking and OOB to chair. 12-point review of systems is otherwise negative without any additional acute complaints. Objective - Vital Signs/Intake and Output Vital Signs (last 24 hours): Temp Pulse Resp BP Pulse Ox 98.1 F 89 18 114/72 97 10/27/17 07:00 10/27/17 07:00 10/27/17 07:00 10/27/17 07:00 10/27/17 07:00 - Medications Medications: Current Medications Acetaminophen (Tylenol 325mg Tab) 650 mg PO Q6 PRN PRN Reason: Headache Last Admin: 10/26/17 12:09 Dose: 650 mg Albuterol/Ipratropium (Duoneb 3 Mg/0.5 Mg (3 Ml) Ud) 3 ml INH RQ6 [facility] Last Admin: 10/27/17 07:29 Dose: 3 ml Aspirin (Ecotrin) 81 mg PO DAILY [facility] Last Admin: 10/26/17 09:09 Dose: 81 mg Clopidogrel Bisulfate (Plavix) 75 mg PO DAILY [facility] Last Admin: 10/26/17 09:08 Dose: 75 mg Enoxaparin Sodium (Lovenox) 40 mg SC DAILY [facility] Last Admin: 10/26/17 09:07 Dose: 40 mg Famotidine (Pepcid) 20 mg PO BID [facility] Last Admin: 10/26/17 18:41 Dose: 20 mg Fluoxetine HCl (Prozac) 40 mg PO DAILY [facility] Last Admin: 10/26/17 09:07 Dose: 40 mg Furosemide (Lasix) 40 mg IVP DAILY [facility] Last Admin: 10/26/17 09:10 Dose: 40 mg Home Med (Patient's Own Topical) 0 gm TOP BID [facility] Last Admin: 10/26/17 18:42 Dose: 1 gm Home Med (Patient's Own Topical) 0 gm TOP BID [facility] Last Admin: 10/26/17 18:42 Dose: 1 gm Insulin Aspart (Novolog) 0 unit SC ACHS [facility] PRN Reason: Protocol Last Admin: 10/26/17 21:53 Dose: Not Given Insulin Detemir (Levemir) 35 unit SC HS [facility] Last Admin: 10/26/17 22:01 Dose: 35 unit Insulin Human Isoph/Insulin Regular (Novolin 70/30 (70/30 Units/Ml) 10 Ml) 14 units SC ACB [facility] Last Admin: 10/27/17 07:58 Dose: 14 units Insulin Human Isoph/Insulin Regular (Novolin 70/30 (70/30 Units/Ml) 10 Ml) 10 units SC QPM [facility] Last Admin: 10/26/17 18:40 Dose: 10 units Loratadine (Claritin) 10 mg PO DAILY [facility] Last Admin: 10/26/17 09:09 Dose: 10 mg Multivitamins (Hexavitamin) 1 tab PO DAILY [facility] Last Admin: 10/26/17 09:09 Dose: 1 tab Nitroglycerin (Nitrostat Sl Tab) 0.4 mg SL Q5M PRN PRN Reason: Pain, moderate (4-7) Last Admin: 10/27/17 10:04 Dose: 0.4 mg Qhlfz-0-Rcie Ethyl Esters (Lovaza) 1 gm PO DAILY [facility] Last Admin: 10/26/17 09:08 Dose: 1 gm Polymyxin/Trimethoprim Sulfate (Polytrim Ophth Soln) 0 ml OS Q6H [facility] Last Admin: 10/27/17 06:45 Dose: 1 drop Ranolazine (Ranexa) 1,000 mg PO BID [facility] Last Admin: 10/26/17 18:41 Dose: 1,000 mg Rosuvastatin Calcium (Crestor) 20 mg PO HS [facility] Last Admin: 10/26/17 22:01 Dose: 20 mg Temazepam (Restoril) 15 mg PO HS PRN PRN Reason: Sleep Last Admin: 10/27/17 00:42 Dose: 15 mg - Labs Labs: 10/27/17 06:14 10/27/17 06:14 PT 11.2 SECONDS (9.7-12.2) 10/22/17 06:02 INR 1.0 10/22/17 06:02 APTT 29 SECONDS (21-34) 10/22/17 06:02 - Additional Findings Additional findings: - Constitutional Appears: Non-toxic - Head Exam Head Exam: NORMAL INSPECTION - Eye Exam Eye Exam: Normal appearance - ENT Exam ENT Exam: Mucous Membranes Moist - Neck Exam Neck Exam: Full ROM - Respiratory Exam Respiratory Exam: NORMAL BREATHING PATTERN, Clear to Auscultation Bilateral - Cardiovascular Exam Cardiovascular Exam: REGULAR RHYTHM, S1, S2 - GI/Abdominal Exam GI & Abdominal Exam: Normal Bowel Sounds - Extremities Exam Extremities Exam: Pedal Edema - Back Exam Back Exam: NORMAL INSPECTION - Neurological Exam Neurological Exam: Alert, Oriented x3 - Psychiatric Exam Psychiatric exam: Normal Affect, Normal Mood - Skin Skin Exam: Normal Color, Dry, Intact Assessment and Plan - Assessment and Plan (Free Text) Assessment: Hx CVA 10/27: Head/Neck CTA 10/27- 1. Significant stenosis of left carotid bifurcation/ proximal left internal carotid artery estimated at approximately 60-70%. 2. There are calcified plaque changes also seen within both cavernous carotid and the distal vertebral arteries with the significant stenosis of the right cavernous carotid and left vertebral artery. See full report. 10/26: Carotid duplex - R side clear. L side 60-70% stenosis of the L proximal internal carotid. see full report. Patient for CT angio tomorrow morning at 8am. Patient has a seafood allergy. Per Dr. Stauffer's recommendation, patient will be following protocol for allergy - Prednisone 50mg PO at 13hrs, 6hrs, and 1hr before contrast. Benadryl 50mg PO 1hr before contrast. Patient will followup with Dr. Stauffer to have MRI/MRA performed as outpatient. 10/25: MRI not performed because pt had cardiac stent placed several wks ago. [employer] ischemic process dx 2016 c/o tingling in hands Neuro consult, Dr. Francois -Continue ASA and plavix to prevent stroke Chest Pain 10/27: pt developed chest pain s/p CT angio. Treated with Nitro SL x2 and Solumedrol 125mg IVP, chest pain quickly resolved. CASSIDY negative, EKG WNL. 45min after resolution, chest pain/tightness returned, given a 3rd Nitro SL, which resolved chest pain. EKG WNL with non specific changes, CASSIDY again negative. Started Nitro paste, 1" q6H pRN pain. Dr. Clay informed, will see pt tonight. CAD (coronary artery disease) 10/26: Carotid duplex - R side clear. L side 60-70% stenosis of the L proximal internal carotid. s/p CABGx4 in 2008 s/p stent of the circumflex several wks ago. continue antiplatelet therapy. Trial of lasix Plavix) 75 mg PO DAILY [facility] Ecotrin) 81 mg PO DAILY [facility] Crestor) 20 mg PO HS [facility] Lovaza) 1 gm PO DAILY [facility] HTN (hypertension) blood pressure control ESPERANZA (obstructive sleep apnea) continue CPAP at night Asthma continue nebulizer treatment. Add inhaled steroids Duoneb 3 Mg/0.5 Mg (3 Ml) Ud) 3 ml INH RQ6 [facility] Claritin) 10 mg PO DAILY [facility] CHF (congestive heart failure) continue Lasix Lasix) 40 mg IVP DAILY [facility] Cardiology workup Anxiety Prozac) 40 mg PO DAILY [facility] Prophylaxis Pepcid) 20 mg PO BID [facility] Case discussed with attending. All medical management as per Dr. Rubi Mcelroy.
[2017-10-27 10:29] LABS: CK-MB 1.82 ng/mL (0.0-3.38); TROPONIN I 0.02 ng/mL (0.00-0.120)
[2017-10-27] MEDS: Enoxaparin 40 mg Syringe SC SCH (10:54)
[2017-10-27] MEDS: Multiple Vitamins Tab PO SCH (10:55)
[2017-10-27] MEDS: Omega-3-Acid Ethyl Esters 1 GM Cap PO SCH (10:55)
[2017-10-27] MEDS: Ranolazine 500 mg Extended Release Tablets PO SCH ×2 (10:56→18:01)
[2017-10-27] MEDS: EUCRISA 2% TOP SCH ×2 (10:58→18:04)
[2017-10-27] MEDS: CALCIPOTRIENE 0.005% TOP SCH ×2 (10:59→18:05)
--- NOTE | 2017-10-27 11:01 | CT ---
TECHNIQUE: Contiguous helical/ transaxial images of the neck were obtained from the level of the skull-base to the superior mediastinum in the arteriographic phase of enhancement. Coronal and sagittal reformats or also generated. IV contrast dose: 100 cc Visipaque Radiation Dose - DLP: 643.77 mGy-cm This CT exam was performed using one or more of the following dose reduction techniques: Automated exposure control, adjustment of the mA and/or kV according to patient size, and/or use of iterative reconstruction technique. . FINDINGS: Aortic arch is patent. The right brachiocephalic and left common carotid artery arise from a common trunk. The common carotid arteries are widely patent. There is predominately soft atherosclerotic plaque at the level of the of the left carotid bifurcation which results in stenosis of the proximal aspect of the of the bifurcation/origin left internal carotid artery estimated at approximately 60-65%. The stenosis is best seen on coronal sequence image number 78. No significant stenosis seen at the level of the right carotid bifurcation despite. The remaining distal internal carotid arteries including the petrous segment patent. There are mild partially calcified atherosclerotic plaque changes seen both carotid bifurcations which also result in appear fairly significant right-sided stenosis stenosis. The vertebral arteries are patent throughout right-sided which is slightly larger in caliber/more dominant than the left. There are calcified plaque changes also seen along the distal intradural segments for of both vertebral arteries with fairly significant stenosis of the left vertebral artery. Basilar artery is patent. The visualized major branches of the [place] are also patent there however there is some asymmetry of the A1 segments left-side of which is slightly larger in caliber/ more dominant than the right. The distal anterior middle and posterior cerebral artery is patent. No evidence of large aneurysm nor vascular malformation. IMPRESSION: Significant stenosis of left carotid bifurcation/proximal left internal carotid artery estimated at approximately 60-70%. There are calcified plaque changes also seen within both cavernous carotid and the distal vertebral arteries with the significant stenosis of the right cavernous carotid and left vertebral artery
[2017-10-27] MEDS ORDERED: (Novolog) Insulin Aspart, Recombinant 100 u/ml 10 ml vial SC SCH (11:35)
[2017-10-27] MEDS ORDERED: (Novolog) Insulin Aspart, Recombinant 100 u/ml 10 ml vial SC ONE ×2 (11:42→15:45)
[2017-10-27] MEDS: Nitroglycerin 2% Ointment Foilpak UD TOP SCH ×2 (11:45→18:02)
--- NOTE | 2017-10-27 12:14 | PN ---
DATE: 10/27/2017 TIME OF EVALUATION: 7:05 a.m. NEUROLOGICAL PROBLEM: Asymptomatic carotid artery stenosis with headache. VITAL SIGNS: Blood pressure 151/86, mean artery pressure of 107, respiratory rate 18, temperature afebrile. The patient denies headache at present, comfortably slept overnight. The patient was given premedication for her CT angiogram which is scheduled today for her history of allergy to iodine. The patient tolerating steroids as well as Tylenol for headache with antihistamines. Following CT angiogram to assess the stenosis, the patient can be discharged and further workup can be done as outpatient from neurologic point of view if medically stable. James Stauffer MD
--- NOTE | 2017-10-27 13:15 | CP.PCM.PN ---
Subjective - Date & Time of Evaluation Date of Evaluation: 10/27/17 Time of Evaluation: 09:20 - Subjective Subjective: clinically same Objective - Vital Signs/Intake and Output Vital Signs (last 24 hours): Temp Pulse Resp BP Pulse Ox 97.5 F L 90 16 122/70 97 10/27/17 11:45 10/27/17 13:07 10/27/17 13:07 10/27/17 13:07 10/27/17 13:07 - Medications Medications: Current Medications Acetaminophen (Tylenol 325mg Tab) 650 mg PO Q6 PRN PRN Reason: Headache Last Admin: 10/27/17 10:19 Dose: 650 mg Albuterol/Ipratropium (Duoneb 3 Mg/0.5 Mg (3 Ml) Ud) 3 ml INH RQ6 [facility] Last Admin: 10/27/17 07:29 Dose: 3 ml Aspirin (Ecotrin) 81 mg PO DAILY [facility] Last Admin: 10/27/17 10:57 Dose: 81 mg Clopidogrel Bisulfate (Plavix) 75 mg PO DAILY [facility] Last Admin: 10/27/17 10:57 Dose: 75 mg Enoxaparin Sodium (Lovenox) 40 mg SC DAILY [facility] Last Admin: 10/27/17 10:54 Dose: 40 mg Famotidine (Pepcid) 20 mg PO BID [facility] Last Admin: 10/27/17 10:57 Dose: 20 mg Fluoxetine HCl (Prozac) 40 mg PO DAILY [facility] Last Admin: 10/27/17 10:56 Dose: 40 mg Furosemide (Lasix) 40 mg IVP DAILY [facility] Last Admin: 10/27/17 10:54 Dose: 40 mg Home Med (Patient's Own Topical) 0 gm TOP BID [facility] Last Admin: 10/27/17 10:58 Dose: 1 gm Home Med (Patient's Own Topical) 0 gm TOP BID [facility] Last Admin: 10/27/17 10:59 Dose: 1 gm Insulin Aspart (Novolog) 0 unit SC ACHS [facility] PRN Reason: Protocol Insulin Detemir (Levemir) 35 unit SC HS [facility] Last Admin: 10/26/17 22:01 Dose: 35 unit Insulin Human Isoph/Insulin Regular (Novolin 70/30 (70/30 Units/Ml) 10 Ml) 14 units SC ACB [facility] Last Admin: 10/27/17 07:58 Dose: 14 units Insulin Human Isoph/Insulin Regular (Novolin 70/30 (70/30 Units/Ml) 10 Ml) 10 units SC QPM [facility] Last Admin: 10/26/17 18:40 Dose: 10 units Loratadine (Claritin) 10 mg PO DAILY [facility] Last Admin: 10/27/17 10:59 Dose: 10 mg Multivitamins (Hexavitamin) 1 tab PO DAILY [facility] Last Admin: 10/27/17 10:55 Dose: 1 tab Nitroglycerin (Nitro-Bid 2% Oint) 1 ea TOP Q6H [facility] Last Admin: 10/27/17 11:45 Dose: 1 ea Ihqgg-6-Jkzo Ethyl Esters (Lovaza) 1 gm PO DAILY [facility] Last Admin: 10/27/17 10:55 Dose: 1 gm Polymyxin/Trimethoprim Sulfate (Polytrim Ophth Soln) 0 ml OS Q6H [facility] Last Admin: 10/27/17 06:45 Dose: 1 drop Ranolazine (Ranexa) 1,000 mg PO BID [facility] Last Admin: 10/27/17 10:56 Dose: 1,000 mg Rosuvastatin Calcium (Crestor) 20 mg PO HS [facility] Last Admin: 10/26/17 22:01 Dose: 20 mg Temazepam (Restoril) 15 mg PO HS PRN PRN Reason: Sleep Last Admin: 10/27/17 00:42 Dose: 15 mg - Labs Labs: 10/27/17 06:14 10/27/17 06:14 PT 11.2 SECONDS (9.7-12.2) 10/22/17 06:02 INR 1.0 10/22/17 06:02 APTT 29 SECONDS (21-34) 10/22/17 06:02 - Constitutional Appears: Well - Head Exam Head Exam: ATRAUMATIC, NORMAL INSPECTION, NORMOCEPHALIC - Eye Exam Eye Exam: EOMI, Normal appearance, PERRL Pupil Exam: NORMAL ACCOMODATION, PERRL - ENT Exam ENT Exam: Mucous Membranes Moist, Normal Exam - Neck Exam Neck Exam: Full ROM, Normal Inspection. absent: Lymphadenopathy - Respiratory Exam Respiratory Exam: Decreased Breath Sounds - Cardiovascular Exam Cardiovascular Exam: REGULAR RHYTHM, +S1, +S2 - GI/Abdominal Exam GI & Abdominal Exam: Soft, Diminished Bowel Sounds - Rectal Exam Rectal Exam: Deferred Assessment and Plan (1) Asthma Status: Acute (2) CHF (congestive heart failure) Status: Acute (3) Dyspnea Status: Acute (4) ESPERANZA (obstructive sleep apnea) Status: Acute (5) Paresthesia Status: Acute (6) Abdominal pain Status: Acute (7) Abrasion of face Status: Acute (8) Acute chest pain Status: Acute (9) Acute coronary syndrome Status: Acute (10) Allergic urticaria Status: Acute (11) Anemia Status: Acute (12) Angina at rest Status: Acute (13) Anxiety Status: Acute (14) Arthritis Status: Acute (15) CAD (coronary artery disease) Status: Acute (16) Chest pain Status: Acute (17) Chest pain Status: Acute (18) Cholelithiasis without obstruction Status: Acute (19) Conjunctivitis Status: Acute (20) Diabetes Status: Acute (21) Dizziness Status: Acute (22) Dizziness Status: Acute (23) Elevated LFTs Status: Acute (24) Elevated liver enzymes Status: Acute (25) Elevated troponin Status: Acute (26) Gastroenteritis Status: Acute (27) Generalized edema Status: Acute (28) HTN (hypertension) Status: Acute (29) Headache Status: Acute (30) Hematuria Status: Acute (31) Hypercholesteremia Status: Acute (32) Hyperkalemia Status: Acute (33) Hyperlipemia Status: Acute (34) Knee pain Status: Acute (35) Lip numbness Status: Acute (36) NSTEMI (non-ST elevated myocardial infarction) Status: Acute (37) Odynophagia Status: Acute (38) Osteoarthritis Status: Acute (39) PFO (patent foramen ovale) Status: Acute (40) Personal history of coronary artery disease Status: Acute (41) Precordial pain Status: Acute (42) Prophylactic measure Status: Acute (43) Psychiatric disorder Status: Acute (44) Shoulder strain Status: Acute (45) TIA (transient ischemic attack) Status: Acute (46) UTI (urinary tract infection) Status: Acute (47) Vaginal candidiasis Status: Acute (48) Wound infection Status: Acute (49) Wrist injury Status: Acute (50) Diabetes type 2, uncontrolled Status: Chronic (51) Status post coronary angioplasty Status: Chronic
[2017-10-27 14:48] LABS: CK-MB 2.22 ng/mL (0.0-3.38); TROPONIN I 0.026 ng/mL (0.00-0.120)
--- NOTE | 2017-10-27 15:55 | CP.PCM.PN ---
Subjective - Date & Time of Evaluation Date of Evaluation: 10/27/17 Time of Evaluation: 11:55 - Subjective Subjective: Patient seen and examined at bedside. No acute events overnight per nursing. Again no respiratory complaints. Assessment and Plan: 1. ESPERANZA - CPAP at night 2. Asthma - Saturating 97% on RA - nebulizer treatments - add inhaled steroids Objective - Vital Signs/Intake and Output Vital Signs (last 24 hours): Temp Pulse Resp BP Pulse Ox 97.5 F L 90 16 122/70 97 10/27/17 11:45 10/27/17 13:07 10/27/17 13:07 10/27/17 13:07 10/27/17 13:07 - Medications Medications: Current Medications Acetaminophen (Tylenol 325mg Tab) 650 mg PO Q6 PRN PRN Reason: Headache Last Admin: 10/27/17 10:19 Dose: 650 mg Albuterol/Ipratropium (Duoneb 3 Mg/0.5 Mg (3 Ml) Ud) 3 ml INH RQ6 [facility] Last Admin: 10/27/17 13:20 Dose: 3 ml Aspirin (Ecotrin) 81 mg PO DAILY [facility] Last Admin: 10/27/17 10:57 Dose: 81 mg Clopidogrel Bisulfate (Plavix) 75 mg PO DAILY [facility] Last Admin: 10/27/17 10:57 Dose: 75 mg Enoxaparin Sodium (Lovenox) 40 mg SC DAILY [facility] Last Admin: 10/27/17 10:54 Dose: 40 mg Famotidine (Pepcid) 20 mg PO BID [facility] Last Admin: 10/27/17 10:57 Dose: 20 mg Fluoxetine HCl (Prozac) 40 mg PO DAILY [facility] Last Admin: 10/27/17 10:56 Dose: 40 mg Furosemide (Lasix) 40 mg IVP DAILY [facility] Last Admin: 10/27/17 10:54 Dose: 40 mg Home Med (Patient's Own Topical) 0 gm TOP BID [facility] Last Admin: 10/27/17 10:58 Dose: 1 gm Home Med (Patient's Own Topical) 0 gm TOP BID [facility] Last Admin: 10/27/17 10:59 Dose: 1 gm Insulin Aspart (Novolog) 0 unit SC ACHS [facility] PRN Reason: Protocol Insulin Detemir (Levemir) 35 unit SC HS [facility] Last Admin: 10/26/17 22:01 Dose: 35 unit Insulin Human Isoph/Insulin Regular (Novolin 70/30 (70/30 Units/Ml) 10 Ml) 14 units SC ACB [facility] Last Admin: 10/27/17 07:58 Dose: 14 units Insulin Human Isoph/Insulin Regular (Novolin 70/30 (70/30 Units/Ml) 10 Ml) 10 units SC QPM [facility] Last Admin: 10/26/17 18:40 Dose: 10 units Loratadine (Claritin) 10 mg PO DAILY [facility] Last Admin: 10/27/17 10:59 Dose: 10 mg Multivitamins (Hexavitamin) 1 tab PO DAILY [facility] Last Admin: 10/27/17 10:55 Dose: 1 tab Nitroglycerin (Nitro-Bid 2% Oint) 1 ea TOP Q6H [facility] Last Admin: 10/27/17 11:45 Dose: 1 ea [id number]-[id number] Ethyl Esters (Lovaza) 1 gm PO DAILY [facility] Last Admin: 10/27/17 10:55 Dose: 1 gm Polymyxin/Trimethoprim Sulfate (Polytrim Ophth Soln) 0 ml OS Q6H [facility] Last Admin: 10/27/17 13:37 Dose: 1 drop Ranolazine (Ranexa) 1,000 mg PO BID [facility] Last Admin: 10/27/17 10:56 Dose: 1,000 mg Rosuvastatin Calcium (Crestor) 20 mg PO HS [facility] Last Admin: 10/26/17 22:01 Dose: 20 mg Temazepam (Restoril) 15 mg PO HS PRN PRN Reason: Sleep Last Admin: 10/27/17 00:42 Dose: 15 mg - Labs Labs: 10/27/17 06:14 10/27/17 06:14 PT 11.2 SECONDS (9.7-12.2) 10/22/17 06:02 INR 1.0 10/22/17 06:02 APTT 29 SECONDS (21-34) 10/22/17 06:02 Assessment and Plan (1) ESPERANZA (obstructive sleep apnea) Status: Acute (2) Asthma Status: Acute (3) CHF (congestive heart failure) Status: Acute
[2017-10-27 17:13] VITALS: RESP 20
--- NOTE | 2017-10-27 18:14 | CP.PCM.PN ---
Subjective - Date & Time of Evaluation Date of Evaluation: 10/27/17 Time of Evaluation: 18:10 - Subjective Subjective: patient had an episode of chest pain after CT scan. Objective - Vital Signs/Intake and Output Vital Signs (last 24 hours): Temp Pulse Resp BP Pulse Ox 97.7 F 88 20 136/54 L 99 10/27/17 15:00 10/27/17 16:00 10/27/17 15:00 10/27/17 15:00 10/27/17 15:00 - Medications Medications: Current Medications Acetaminophen (Tylenol 325mg Tab) 650 mg PO Q6 PRN PRN Reason: Headache Last Admin: 10/27/17 10:19 Dose: 650 mg Albuterol/Ipratropium (Duoneb 3 Mg/0.5 Mg (3 Ml) Ud) 3 ml INH RQ6 [facility] Last Admin: 10/27/17 13:20 Dose: 3 ml Aspirin (Ecotrin) 81 mg PO DAILY [facility] Last Admin: 10/27/17 10:57 Dose: 81 mg Clopidogrel Bisulfate (Plavix) 75 mg PO DAILY [facility] Last Admin: 10/27/17 10:57 Dose: 75 mg Enoxaparin Sodium (Lovenox) 40 mg SC DAILY [facility] Last Admin: 10/27/17 10:54 Dose: 40 mg Famotidine (Pepcid) 20 mg PO BID [facility] Last Admin: 10/27/17 18:01 Dose: 20 mg Fluoxetine HCl (Prozac) 40 mg PO DAILY [facility] Last Admin: 10/27/17 10:56 Dose: 40 mg Furosemide (Lasix) 40 mg IVP DAILY [facility] Last Admin: 10/27/17 10:54 Dose: 40 mg Home Med (Patient's Own Topical) 0 gm TOP BID [facility] Last Admin: 10/27/17 18:04 Dose: 1 gm Home Med (Patient's Own Topical) 0 gm TOP BID [facility] Last Admin: 10/27/17 18:05 Dose: 1 gm Insulin Aspart (Novolog) 0 unit SC ACHS [facility] PRN Reason: Protocol Last Admin: 10/27/17 17:30 Dose: 12 unit Insulin Detemir (Levemir) 35 unit SC HS [facility] Last Admin: 10/26/17 22:01 Dose: 35 unit Insulin Human Isoph/Insulin Regular (Novolin 70/30 (70/30 Units/Ml) 10 Ml) 14 units SC ACB [facility] Last Admin: 10/27/17 07:58 Dose: 14 units Insulin Human Isoph/Insulin Regular (Novolin 70/30 (70/30 Units/Ml) 10 Ml) 10 units SC QPM [facility] Last Admin: 10/27/17 18:02 Dose: 10 units Loratadine (Claritin) 10 mg PO DAILY [facility] Last Admin: 10/27/17 10:59 Dose: 10 mg Multivitamins (Hexavitamin) 1 tab PO DAILY [facility] Last Admin: 10/27/17 10:55 Dose: 1 tab Nitroglycerin (Nitro-Bid 2% Oint) 1 ea TOP Q6H [facility] Last Admin: 10/27/17 18:02 Dose: Not Given [id number] Ethyl Esters (Lovaza) 1 gm PO DAILY [facility] Last Admin: 10/27/17 10:55 Dose: 1 gm Polymyxin/Trimethoprim Sulfate (Polytrim Ophth Soln) 0 ml OS Q6H [facility] Last Admin: 10/27/17 18:03 Dose: 1 drop Ranolazine (Ranexa) 1,000 mg PO BID [facility] Last Admin: 10/27/17 18:01 Dose: 1,000 mg Rosuvastatin Calcium (Crestor) 20 mg PO HS [facility] Last Admin: 10/26/17 22:01 Dose: 20 mg Temazepam (Restoril) 15 mg PO HS PRN PRN Reason: Sleep Last Admin: 10/27/17 00:42 Dose: 15 mg - Labs Labs: 10/27/17 06:14 10/27/17 06:14 PT 11.2 SECONDS (9.7-12.2) 10/22/17 06:02 INR 1.0 10/22/17 06:02 APTT 29 SECONDS (21-34) 10/22/17 06:02 - Constitutional Appears: Non-toxic - Head Exam Head Exam: NORMAL INSPECTION - Eye Exam Eye Exam: Normal appearance - ENT Exam ENT Exam: Mucous Membranes Moist - Neck Exam Neck Exam: Full ROM - Respiratory Exam Respiratory Exam: NORMAL BREATHING PATTERN - Cardiovascular Exam Cardiovascular Exam: REGULAR RHYTHM - GI/Abdominal Exam GI & Abdominal Exam: Normal Bowel Sounds - Rectal Exam Rectal Exam: Deferred - Extremities Exam Extremities Exam: absent: Pedal Edema - Back Exam Back Exam: NORMAL INSPECTION - Neurological Exam Neurological Exam: Alert - Psychiatric Exam Psychiatric exam: Normal Affect - Skin Skin Exam: Normal Color Assessment and Plan (1) CAD (coronary artery disease) Assessment & Plan: s/p PCI left circumflex. cardaic enzymes have been negative. continue nitro patch Status: Acute (2) HTN (hypertension) Status: Acute
[2017-10-27] MEDS: Insulin Detemir 100 units/ml Vial (Levemir) SC SCH (22:15)
[2017-10-28] MEDS: Nitroglycerin 2% Ointment Foilpak UD TOP SCH ×4 (00:02→17:57)
[2017-10-28] MEDS: Polymyxin/Trimethoprim Ophth Soln OS SCH ×4 (00:02→17:57)
[2017-10-28] MEDS: Albuterol-Ipratrop 3 mg / 0.5 (3 ml) UD INH SCH ×4 (01:32→20:04)
[2017-10-28 06:41] LABS: BASO % 0.1 % (0.0-2.0); EOS % 0.1 % (0.0-4.0); HEMOGLOBIN 13.8 g/dL (11.0-16.0); LYMPH % 9.9 % (20.0-40.0); MEAN CORPUSCULAR HEMOGLOBIN 32.5 pg (27.0-31.0); MEAN PLATELET VOLUME 10.5 fL (7.2-11.7); MONO # 0.9 K/uL (0.0-0.8); MONO % 9.2 % (0.0-10.0); NEUT # 7.9 K/uL (1.8-7.0); NEUT % 80.7 % (50.0-75.0); NRBC % 0.1 % (0.0-2.0); PLATELET COUNT 188 K/uL (130-400); RBC 4.25 Mil/uL (3.80-5.20); WHITE BLOOD COUNT 9.8 K/uL (4.8-10.8)
[2017-10-28 07:24] LABS: ALB/GLOB RATIO 1.1 (1.0-2.1); ALBUMIN 4.4 g/dL (3.5-5.0); ALT/SGPT 37 U/L (9-52); AST/SGOT 28 U/L (14-36); BLOOD UREA NITROGEN 34 mg/dL (7-17); CALCIUM 9.3 mg/dl (8.6-10.4); GFR AFRICAN-AMERICAN > 60; GFR NON-AFRICAN AMERICAN > 60
[2017-10-28] MEDS: (Novolog) Insulin Aspart, Recombinant 100 u/ml 10 ml vial SC SCH ×6 (08:18→21:16)
[2017-10-28] MEDS: (Novolin 70/30) NPH/Regular 70/30 Units/ml 10 ml vial SC SCH ×2 (08:19→17:57)
[2017-10-28 08:35] LABS: BANDS 2 % (0-2); LYMPHOCYTE 8 % (20-40); METAMYELOCYTE 1 % (0-0); MONOCYTE 10 % (0-10); NEUTROPHIL 79 % (50-75); PLATELET ESTIMATE NORMAL (NORMAL); TOTAL CELLS COUNTED 100
[2017-10-28] MEDS: Multiple Vitamins Tab PO SCH (09:40)
[2017-10-28] MEDS: Omega-3-Acid Ethyl Esters 1 GM Cap PO SCH (09:41)
[2017-10-28] MEDS: Ranolazine 500 mg Extended Release Tablets PO SCH ×2 (09:41→17:58)
[2017-10-28] MEDS: Enoxaparin 40 mg Syringe SC SCH (09:41)
[2017-10-28] MEDS: CALCIPOTRIENE 0.005% TOP SCH ×2 (09:43→17:58)
[2017-10-28] MEDS: EUCRISA 2% TOP SCH ×2 (09:43→17:58)
--- NOTE | 2017-10-28 11:05 | PN ---
DATE: 10/28/2017 TIME OF EVALUATION: 6:55 a.m. NEUROLOGICAL PROBLEM: Asymptomatic carotid artery stenosis with headache. PHYSICAL EXAMINATION: VITAL SIGNS: Blood pressure 108/58, mean artery pressure of 74, respiratory rate 18, temperature 97.3, with a pulse rate of 74 and regular. The patient did undergo CT angiogram of her neck to assess her carotid artery stenosis. It was reported and this has been reviewed by me, shows 60% to 65% of proximal part of the right internal carotid artery being occluded. The patient stated she developed some chest pain, which is being evaluated by animal care assistant as well, been given sublingual nitro and patch, which was not helping her. At present, she feels better. No chest pain. Her respiration is normal. Episodic headache. She claims that she would not mind to stay longer to make sure her chest pain is not related to her cardiac issues. From neurological point of view, the patient is cleared to go home and should follow up with me as outpatient. Continue the present medications for stroke prophylaxis including aspirin, statin, and angiotensin receptor blockers. Weight reduction and control for diabetes has been discussed with the patient in detail. James Stauffer MD
--- NOTE | 2017-10-28 11:42 | CP.PCM.PN ---
Subjective - Date & Time of Evaluation Date of Evaluation: 10/28/17 Time of Evaluation: 11:40 - Subjective Subjective: Progress note. Attending: Dr. Mcelroy. Pt seen and examined at bedside. No acute distress. No events overnight. Pt reporting some headaches and some residual chest discomfort. No fevers, chills, vomiting, diarrhea. Objective - Vital Signs/Intake and Output Vital Signs (last 24 hours): Temp Pulse Resp BP Pulse Ox 97.3 F L 94 H 20 110/65 100 10/28/17 04:38 10/28/17 07:21 10/28/17 04:38 10/28/17 09:42 10/28/17 04:38 Intake and Output: 10/28/17 10/28/17 06:59 18:59 Intake Total 240 Balance 240 - Medications Medications: Current Medications Acetaminophen (Tylenol 325mg Tab) 650 mg PO Q6 PRN PRN Reason: Headache Last Admin: 10/28/17 05:51 Dose: 650 mg Albuterol/Ipratropium (Duoneb 3 Mg/0.5 Mg (3 Ml) Ud) 3 ml INH RQ6 [facility] Last Admin: 10/28/17 07:26 Dose: 3 ml Aspirin (Ecotrin) 81 mg PO DAILY [facility] Last Admin: 10/28/17 09:40 Dose: 81 mg Clopidogrel Bisulfate (Plavix) 75 mg PO DAILY [facility] Last Admin: 10/28/17 09:40 Dose: 75 mg Enoxaparin Sodium (Lovenox) 40 mg SC DAILY [facility] [place] Last Admin: 10/28/17 09:41 Dose: 40 mg Famotidine (Pepcid) 20 mg PO BID [facility] [place] Last Admin: 10/28/17 09:40 Dose: 20 mg Fluoxetine HCl (Prozac) 40 mg PO DAILY [facility] [place] Last Admin: 10/28/17 09:41 Dose: 40 mg Furosemide (Lasix) 40 mg IVP DAILY [facility] [place] Last Admin: 10/28/17 09:42 Dose: 40 mg Home Med (Patient's Own Topical) 0 gm TOP BID [facility] [place] Last Admin: 10/28/17 09:43 Dose: 1 gm Home Med (Patient's Own Topical) 0 gm TOP BID [facility] [place] Last Admin: 10/28/17 09:43 Dose: 1 gm Insulin Aspart (Novolog) 0 unit SC ACHS [facility] [place] PRN Reason: Protocol Last Admin: 10/28/17 08:18 Dose: 6 unit Insulin Detemir (Levemir) 35 unit SC HS [facility] [place] Last Admin: 10/27/17 22:15 Dose: 35 unit Insulin Human Isoph/Insulin Regular (Novolin 70/30 (70/30 Units/Ml) 10 Ml) 14 units SC ACB [facility] Last Admin: 10/28/17 08:19 Dose: 14 units Insulin Human Isoph/Insulin Regular (Novolin 70/30 (70/30 Units/Ml) 10 Ml) 10 units SC QPM [facility] [place] Last Admin: 10/27/17 18:02 Dose: 10 units Loratadine (Claritin) 10 mg PO DAILY [facility] [place] Last Admin: 10/28/17 09:40 Dose: 10 mg Multivitamins (Hexavitamin) 1 tab PO DAILY [facility] [place] Last Admin: 10/28/17 09:40 Dose: 1 tab Nitroglycerin (Nitro-Bid 2% Oint) 1 ea TOP Q6H [facility] [place] Last Admin: 10/28/17 05:48 Dose: 1 ea [id number] Ethyl Esters (Lovaza) 1 gm PO DAILY [facility] [place] Last Admin: 10/28/17 09:41 Dose: 1 gm Polymyxin/Trimethoprim Sulfate (Polytrim Ophth Soln) 0 ml OS Q6H [facility] [place] Last Admin: 10/28/17 05:48 Dose: 1 drop Ranolazine (Ranexa) 1,000 mg PO BID [facility] [place] Last Admin: 10/28/17 09:41 Dose: 1,000 mg Rosuvastatin Calcium (Crestor) 20 mg PO HS [facility] [place] Last Admin: 10/27/17 22:14 Dose: 20 mg Temazepam (Restoril) 15 mg PO HS PRN PRN Reason: Sleep Last Admin: 10/28/17 00:02 Dose: 15 mg - Labs Labs: 10/28/17 06:34 10/28/17 06:34 PT 11.2 SECONDS (9.7-12.2) 10/22/17 06:02 INR 1.0 10/22/17 06:02 APTT 29 SECONDS (21-34) 10/22/17 06:02 - Constitutional Appears: Non-toxic, No Acute Distress - Head Exam Head Exam: ATRAUMATIC, NORMAL INSPECTION, NORMOCEPHALIC - Eye Exam Eye Exam: EOMI - ENT Exam ENT Exam: Mucous Membranes Moist - Neck Exam Neck Exam: Full ROM, Normal Inspection - Respiratory Exam Respiratory Exam: Decreased Breath Sounds, NORMAL BREATHING PATTERN - Cardiovascular Exam Cardiovascular Exam: +S1, +S2 - GI/Abdominal Exam GI & Abdominal Exam: Soft, Normal Bowel Sounds. absent: Tenderness - Extremities Exam Extremities Exam: Full ROM, Normal Inspection - Neurological Exam Neurological Exam: Alert, Awake, Oriented x3 - Psychiatric Exam Psychiatric exam: Normal Affect, Normal Mood - Skin Skin Exam: Dry, Intact, Normal Color, Warm Assessment and Plan - Assessment and Plan (Free Text) Assessment: This is a 52 yo female with Hx CVA 10/27: Head/Neck CTA 10/27- 1. Significant stenosis of left carotid bifurcation/ proximal left internal carotid artery estimated at approximately 60-70%. 2. There are calcified plaque changes also seen within both cavernous carotid and the distal vertebral arteries with the significant stenosis of the right cavernous carotid and left vertebral artery. See full report. 10/26: Carotid duplex - R side clear. L side 60-70% stenosis of the L proximal internal carotid. see full report. Patient for CT angio tomorrow morning at 8am. Patient has a seafood allergy. Per Dr. Stauffer's recommendation, patient will be following protocol for allergy - Prednisone 50mg PO at 13hrs, 6hrs, and 1hr before contrast. Benadryl 50mg PO 1hr before contrast. Patient will followup with Dr. tSauffer to have MRI/MRA performed as outpatient. 10/25: MRI not performed because pt had cardiac stent placed several wks ago. Neuro consult. Dr. Stauffer. recs appreciated. -continue daily asa -continue daily plavix Chest Pain -continue asa and plavix -cardio consult. Dr. Clay. recs appreciated. -continue lasix 40 IV daily -continue crestor PO HS CAD (coronary artery disease) -10/26: Carotid duplex - R side clear. L side 60-70% stenosis of the L proximal internal carotid. -s/p CABG x4 in 2008 -s/p stent of the circumflex several wks ago. continue antiplatelet therapy. Plavix 75 mg PO DAILY [facility] ASA 81 mg PO DAILY [facility] Crestor 20 mg PO HS [facility] Lovaza 1 gm PO DAILY [facility] HTN (hypertension) -continue to monitor ESPERANZA (obstructive sleep apnea) -continue CPAP at night Asthma -continue duonebs as needed. CHF (congestive heart failure) -continue lasix daily -I/O -daily weights Anxiety -continue prozac daily Prophylaxis -continue pepcid -continue sc lovenox. Case discussed with attending. All medical management as per Dr. Rubi Mcelroy.
--- NOTE | 2017-10-28 14:53 | CP.PCM.PN ---
Subjective - Date & Time of Evaluation Date of Evaluation: 10/28/17 Time of Evaluation: 10:40 - Subjective Subjective: clinically same Objective - Vital Signs/Intake and Output Vital Signs (last 24 hours): Temp Pulse Resp BP Pulse Ox 97.3 F L 94 H 20 110/65 100 10/28/17 04:38 10/28/17 07:21 10/28/17 04:38 10/28/17 09:42 10/28/17 04:38 Intake and Output: 10/28/17 10/28/17 06:59 18:59 Intake Total 240 Balance 240 - Medications Medications: Current Medications Acetaminophen (Tylenol 325mg Tab) 650 mg PO Q6 PRN PRN Reason: Headache Last Admin: 10/28/17 11:42 Dose: 650 mg Albuterol/Ipratropium (Duoneb 3 Mg/0.5 Mg (3 Ml) Ud) 3 ml INH RQ6 [facility] Last Admin: 10/28/17 13:17 Dose: 3 ml Aspirin (Ecotrin) 81 mg PO DAILY [facility] Last Admin: 10/28/17 09:40 Dose: 81 mg Clopidogrel Bisulfate (Plavix) 75 mg PO DAILY [facility] Last Admin: 10/28/17 09:40 Dose: 75 mg Enoxaparin Sodium (Lovenox) 40 mg SC DAILY [facility] Last Admin: 10/28/17 09:41 Dose: 40 mg Famotidine (Pepcid) 20 mg PO BID [facility] Last Admin: 10/28/17 09:40 Dose: 20 mg Fluoxetine HCl (Prozac) 40 mg PO DAILY [facility] Last Admin: 10/28/17 09:41 Dose: 40 mg Furosemide (Lasix) 40 mg IVP DAILY [facility] Last Admin: 10/28/17 09:42 Dose: 40 mg Home Med (Patient's Own Topical) 0 gm TOP BID [facility] Last Admin: 10/28/17 09:43 Dose: 1 gm Home Med (Patient's Own Topical) 0 gm TOP BID [facility] Last Admin: 10/28/17 09:43 Dose: 1 gm Insulin Aspart (Novolog) 0 unit SC ACHS [facility] PRN Reason: Protocol Last Admin: 10/28/17 12:39 Dose: Not Given Insulin Detemir (Levemir) 35 unit SC HS [facility] Last Admin: 10/27/17 22:15 Dose: 35 unit Insulin Human Isoph/Insulin Regular (Novolin 70/30 (70/30 Units/Ml) 10 Ml) 14 units SC ACB [facility] Last Admin: 10/28/17 08:19 Dose: 14 units Insulin Human Isoph/Insulin Regular (Novolin 70/30 (70/30 Units/Ml) 10 Ml) 10 units SC QPM [facility] Last Admin: 10/27/17 18:02 Dose: 10 units Loratadine (Claritin) 10 mg PO DAILY [facility] Last Admin: 10/28/17 09:40 Dose: 10 mg Multivitamins (Hexavitamin) 1 tab PO DAILY [facility] Last Admin: 10/28/17 09:40 Dose: 1 tab Nitroglycerin (Nitro-Bid 2% Oint) 1 ea TOP Q6H [facility] Last Admin: 10/28/17 11:41 Dose: 1 ea [id number] Ethyl Esters (Lovaza) 1 gm PO DAILY [facility] Last Admin: 10/28/17 09:41 Dose: 1 gm Polymyxin/Trimethoprim Sulfate (Polytrim Ophth Soln) 0 ml OS Q6H [facility] Last Admin: 10/28/17 11:42 Dose: 1 drop Ranolazine (Ranexa) 1,000 mg PO BID [facility] Last Admin: 10/28/17 09:41 Dose: 1,000 mg Rosuvastatin Calcium (Crestor) 20 mg PO HS [facility] Last Admin: 10/27/17 22:14 Dose: 20 mg Temazepam (Restoril) 15 mg PO HS PRN PRN Reason: Sleep Last Admin: 10/28/17 00:02 Dose: 15 mg - Labs Labs: 10/28/17 06:34 10/28/17 06:34 PT 11.2 SECONDS (9.7-12.2) 10/22/17 06:02 INR 1.0 10/22/17 06:02 APTT 29 SECONDS (21-34) 10/22/17 06:02 - Constitutional Appears: Well - Head Exam Head Exam: ATRAUMATIC, NORMAL INSPECTION, NORMOCEPHALIC - Eye Exam Eye Exam: EOMI, Normal appearance, PERRL Pupil Exam: NORMAL ACCOMODATION, PERRL - ENT Exam ENT Exam: Mucous Membranes Moist, Normal Exam - Neck Exam Neck Exam: Full ROM, Normal Inspection. absent: Lymphadenopathy - Respiratory Exam Respiratory Exam: Decreased Breath Sounds - Cardiovascular Exam Cardiovascular Exam: REGULAR RHYTHM, +S1, +S2 - GI/Abdominal Exam GI & Abdominal Exam: Soft, Diminished Bowel Sounds - Rectal Exam Rectal Exam: Deferred Assessment and Plan (1) Asthma Status: Acute (2) CHF (congestive heart failure) Status: Acute (3) Dyspnea Status: Acute (4) ESPERANZA (obstructive sleep apnea) Status: Acute (5) Paresthesia Status: Acute (6) Abdominal pain Status: Acute (7) Abrasion of face Status: Acute (8) Acute chest pain Status: Acute (9) Acute coronary syndrome Status: Acute (10) Allergic urticaria Status: Acute (11) Anemia Status: Acute (12) Angina at rest Status: Acute (13) Anxiety Status: Acute (14) Arthritis Status: Acute (15) CAD (coronary artery disease) Status: Acute (16) Chest pain Status: Acute (17) Chest pain Status: Acute (18) Cholelithiasis without obstruction Status: Acute (19) Conjunctivitis Status: Acute (20) Diabetes Status: Acute (21) Dizziness Status: Acute (22) Dizziness Status: Acute (23) Elevated LFTs Status: Acute (24) Elevated liver enzymes Status: Acute (25) Elevated troponin Status: Acute (26) Gastroenteritis Status: Acute (27) Generalized edema Status: Acute (28) HTN (hypertension) Status: Acute (29) Headache Status: Acute (30) Hematuria Status: Acute (31) Hypercholesteremia Status: Acute (32) Hyperkalemia Status: Acute (33) Hyperlipemia Status: Acute (34) Knee pain Status: Acute (35) Lip numbness Status: Acute (36) NSTEMI (non-ST elevated myocardial infarction) Status: Acute (37) Odynophagia Status: Acute (38) Osteoarthritis Status: Acute (39) PFO (patent foramen ovale) Status: Acute (40) Personal history of coronary artery disease Status: Acute (41) Precordial pain Status: Acute (42) Prophylactic measure Status: Acute (43) Psychiatric disorder Status: Acute (44) Shoulder strain Status: Acute (45) TIA (transient ischemic attack) Status: Acute (46) UTI (urinary tract infection) Status: Acute (47) Vaginal candidiasis Status: Acute (48) Wound infection Status: Acute (49) Wrist injury Status: Acute (50) Diabetes type 2, uncontrolled Status: Chronic (51) Status post coronary angioplasty Status: Chronic
[2017-10-28] MEDS: Insulin Detemir 100 units/ml Vial (Levemir) SC SCH (21:16)
--- NOTE | 2017-10-28 22:19 | CARD ---
APPROVED REPORT EKG Measurement Heart [id number] <Conclusion> Normal sinus rhythm Possible Left atrial enlargement ST & T wave abnormality, consider lateral ischemia Abnormal ECG
--- NOTE | 2017-10-28 22:22 | CARD ---
APPROVED REPORT EKG Measurement Heart [id number] <Conclusion> Normal sinus rhythm Possible Left atrial enlargement Abnormal QRS-T angle, consider primary T wave abnormality Prolonged QT Abnormal ECG
[2017-10-29] MEDS: Polymyxin/Trimethoprim Ophth Soln OS SCH ×4 (00:05→17:35)
[2017-10-29] MEDS: Nitroglycerin 2% Ointment Foilpak UD TOP SCH ×4 (00:10→17:34)
[2017-10-29] MEDS: Albuterol-Ipratrop 3 mg / 0.5 (3 ml) UD INH SCH ×4 (01:17→19:39)
[2017-10-29 06:39] LABS: BASO % 0.5 % (0.0-2.0); EOS # 0.1 K/uL (0.0-0.7); EOS % 1.1 % (0.0-4.0); HEMOGLOBIN 13.7 g/dL (11.0-16.0); LYMPH # 2.2 K/uL (1.0-4.3); MEAN CELL VOLUME 93.1 fL (81.0-99.0); MEAN CORPUSCULAR HEMOGLOBIN 32.6 pg (27.0-31.0); MONO # 0.8 K/uL (0.0-0.8); MONO % 14.9 % (0.0-10.0); NEUT # 2.2 K/uL (1.8-7.0); NEUT % 41.5 % (50.0-75.0); RBC 4.2 Mil/uL (3.80-5.20); RED CELL DISTRIBUTION WIDTH 14.2 % (11.5-14.5); WHITE BLOOD COUNT 5.2 K/uL (4.8-10.8)
[2017-10-29 06:55] LABS: ALB/GLOB RATIO 1.1 (1.0-2.1); ALT/SGPT 33 U/L (9-52); AST/SGOT 35 U/L (14-36); BLOOD UREA NITROGEN 34 mg/dL (7-17); CALCIUM 9.3 mg/dl (8.6-10.4); GFR AFRICAN-AMERICAN > 60; GFR NON-AFRICAN AMERICAN 58
[2017-10-29 07:40] VITALS: O2SAT 100
[2017-10-29] MEDS: (Novolog) Insulin Aspart, Recombinant 100 u/ml 10 ml vial SC SCH ×3 (08:28→17:30)
[2017-10-29] MEDS: (Novolin 70/30) NPH/Regular 70/30 Units/ml 10 ml vial SC SCH ×3 (08:29→17:34)
--- NOTE | 2017-10-29 09:00 | CP.PCM.PN ---
Subjective - Date & Time of Evaluation Date of Evaluation: 10/29/17 Time of Evaluation: 08:56 - Subjective Subjective: PGY-[address] Mcelroy's service: Pt seen and examined at bedside. Nursing reports no acute events overnight. Pt reporting right sided headache and pain when she palpates her chest wall. Pt states she is breathing "much better" since admission. No fevers, chills, abd pain, vomiting, diarrhea. Objective - Vital Signs/Intake and Output Vital Signs (last 24 hours): Temp Pulse Resp BP Pulse Ox 97 F L 71 20 131/77 100 10/29/17 07:00 10/29/17 07:00 10/29/17 07:00 10/29/17 07:00 10/29/17 07:00 Intake and Output: 10/29/17 10/29/17 06:59 18:59 Intake Total 100 Balance 100 - Medications Medications: Current Medications Acetaminophen (Tylenol 325mg Tab) 650 mg PO Q6 PRN PRN Reason: Headache Last Admin: 10/29/17 06:09 Dose: 650 mg Albuterol/Ipratropium (Duoneb 3 Mg/0.5 Mg (3 Ml) Ud) 3 ml INH RQ6 [facility] Last Admin: 10/29/17 07:59 Dose: 3 ml Aspirin (Ecotrin) 81 mg PO DAILY [facility] Last Admin: 10/28/17 09:40 Dose: 81 mg Clopidogrel Bisulfate (Plavix) 75 mg PO DAILY [facility] Last Admin: 10/28/17 09:40 Dose: 75 mg Enoxaparin Sodium (Lovenox) 40 mg SC DAILY [facility] Last Admin: 10/28/17 09:41 Dose: 40 mg Famotidine (Pepcid) 20 mg PO BID [facility] Last Admin: 10/28/17 17:58 Dose: 20 mg Fluoxetine HCl (Prozac) 40 mg PO DAILY [facility] Last Admin: 10/28/17 09:41 Dose: 40 mg Furosemide (Lasix) 40 mg IVP DAILY [facility] Last Admin: 10/28/17 09:42 Dose: 40 mg Home Med (Patient's Own Topical) 0 gm TOP BID [facility] Last Admin: 10/28/17 17:58 Dose: Not Given Home Med (Patient's Own Topical) 0 gm TOP BID [facility] Last Admin: 10/28/17 17:58 Dose: Not Given Insulin Aspart (Novolog) 0 unit SC ACHS [facility] PRN Reason: Protocol Last Admin: 10/29/17 08:28 Dose: 6 unit Insulin Detemir (Levemir) 35 unit SC HS [facility] Last Admin: 10/28/17 21:16 Dose: 35 unit Insulin Human Isoph/Insulin Regular (Novolin 70/30 (70/30 Units/Ml) 10 Ml) 14 units SC ACB [facility] Last Admin: 10/29/17 08:29 Dose: 14 units Insulin Human Isoph/Insulin Regular (Novolin 70/30 (70/30 Units/Ml) 10 Ml) 10 units SC QPM [facility] Last Admin: 10/28/17 17:57 Dose: 10 units Loratadine (Claritin) 10 mg PO DAILY [facility] Last Admin: 10/28/17 09:40 Dose: 10 mg Multivitamins (Hexavitamin) 1 tab PO DAILY [facility] Last Admin: 10/28/17 09:40 Dose: 1 tab Nitroglycerin (Nitro-Bid 2% Oint) 1 ea TOP Q6H [facility] Last Admin: 10/29/17 05:44 Dose: 1 ea [id number] Ethyl Esters (Lovaza) 1 gm PO DAILY [facility] Last Admin: 10/28/17 09:41 Dose: 1 gm Polymyxin/Trimethoprim Sulfate (Polytrim Ophth Soln) 0 ml OS Q6H [facility] Last Admin: 10/29/17 05:44 Dose: 1 drop Ranolazine (Ranexa) 1,000 mg PO BID [facility] Last Admin: 10/28/17 17:58 Dose: 1,000 mg Rosuvastatin Calcium (Crestor) 20 mg PO HS [facility] Last Admin: 10/28/17 21:15 Dose: 20 mg Temazepam (Restoril) 15 mg PO HS PRN PRN Reason: Sleep Last Admin: 10/29/17 00:05 Dose: 15 mg - Labs Labs: 10/29/17 06:29 10/29/17 06:29 PT 11.2 SECONDS (9.7-12.2) 10/22/17 06:02 INR 1.0 10/22/17 06:02 APTT 29 SECONDS (21-34) 10/22/17 06:02 - Additional Findings Additional findings: - Constitutional Appears: Non-toxic, No Acute Distress - Head Exam Head Exam: ATRAUMATIC, NORMAL INSPECTION, NORMOCEPHALIC - Eye Exam Eye Exam: EOMI - ENT Exam ENT Exam: Mucous Membranes Moist - Neck Exam Neck Exam: Full ROM, Normal Inspection - Respiratory Exam Respiratory Exam: Decreased Breath Sounds, NORMAL BREATHING PATTERN - Cardiovascular Exam Cardiovascular Exam: +S1, +S2 - reproducible chest pain diffusely over chest wall - GI/Abdominal Exam GI & Abdominal Exam: Soft, Normal Bowel Sounds. absent: Tenderness - Extremities Exam Extremities Exam: Full ROM, Normal Inspection - Neurological Exam Neurological Exam: Alert, Awake, Oriented x3 - light touch intact in upper extremities - Psychiatric Exam Psychiatric exam: Normal Affect, Normal Mood - Skin Skin Exam: Dry, Intact, Normal Color, Warm Assessment and Plan - Assessment and Plan (Free Text) Plan: Hx CVA 10/27: Head/Neck CTA 10/27- 1. Significant stenosis of left carotid bifurcation/ proximal left internal carotid artery estimated at approximately 60-70%. 2. There are calcified plaque changes also seen within both cavernous carotid and the distal vertebral arteries with the significant stenosis of the right cavernous carotid and left vertebral artery. See full report. 10/26: Carotid duplex - R side clear. L side 60-70% stenosis of the L proximal internal carotid. see full report. Patient for CT angio tomorrow morning at 8am. Patient has a seafood allergy. Per Dr. Stauffer's recommendation, patient will be following protocol for allergy - Prednisone 50mg PO at 13hrs, 6hrs, and 1hr before contrast. Benadryl 50mg PO 1hr before contrast. Patient will followup with Dr. Stauffer to have MRI/MRA performed as outpatient. 10/25: MRI not performed because pt had cardiac stent placed several wks ago. Neuro consult. Dr. Stauffer. recs appreciated. -continue daily asa -continue daily plavix - Ok for D/C home w/ OPDX follow up Chest Pain Reproducible Trop negative x 2 on admission EKG (10/27/17): NSR @ 96 bpm, continue asa and plavix, nitro patch cardio consult. Dr. Clay. recs appreciated. continue lasix 40 IV daily Ranexa 1000mg PO BID continue crestor PO HS CAD (coronary artery disease) 10/26: Carotid duplex - R side clear. L side 60-70% stenosis of the L proximal internal carotid. s/p CABG x4 in 2008 s/p stent of the circumflex several wks ago. continue antiplatelet therapy. Plavix 75 mg PO DAILY [facility] ASA 81 mg PO DAILY [facility] Crestor 20 mg PO HS [facility] Lovaza 1 gm PO DAILY [facility] HTN (hypertension) Well controlled continue to monitor ESPERANZA (obstructive sleep apnea) Dr. Kidd, Pulm applications consultant -continue CPAP at night Asthma Dr. Kidd, Pulm applications consultant continue duonebs as needed Claritin 10mg PO Daily T2DM, uncontrolled Last A1c (03/2017): 11.3, f/u repeat Levemir increase to 40 units HS Novolin 70/30 increase to 16 units ACB, increase to 14 units QPM ISS Hypoglycemia protocol CHF (congestive heart failure) continue lasix daily I/O daily weights]] Anxiety continue prozac daily Prophylaxis continue pepcid continue sc lovenox Disposition: Pt clear for DC from Neuro perspective, w/ OPDX follow up. Patient reporting only reproducible chest pain. Case discussed with attending. All medical management as per Dr. Rubi Mcelroy.
[2017-10-29] MEDS ORDERED: (Novolin 70/30) NPH/Regular 70/30 Units/ml 10 ml vial SC SCH (09:45)
[2017-10-29] MEDS: Enoxaparin 40 mg Syringe SC SCH (10:56)
[2017-10-29] MEDS: Omega-3-Acid Ethyl Esters 1 GM Cap PO SCH (10:56)
[2017-10-29] MEDS: Multiple Vitamins Tab PO SCH (10:56)
[2017-10-29] MEDS: EUCRISA 2% TOP SCH ×2 (10:57→17:36)
[2017-10-29] MEDS: CALCIPOTRIENE 0.005% TOP SCH ×2 (10:57→17:36)
[2017-10-29] MEDS: Ranolazine 500 mg Extended Release Tablets PO SCH ×2 (10:57→17:34)
--- NOTE | 2017-10-29 15:24 | CP.PCM.PN ---
Subjective - Date & Time of Evaluation Date of Evaluation: 10/29/17 Time of Evaluation: 12:40 - Subjective Subjective: clinically same Objective - Vital Signs/Intake and Output Vital Signs (last 24 hours): Temp Pulse Resp BP Pulse Ox 97 F L 96 H 20 120/74 100 10/29/17 07:00 10/29/17 07:44 10/29/17 07:00 10/29/17 10:56 10/29/17 07:00 Intake and Output: 10/29/17 10/29/17 06:59 18:59 Intake Total 100 Balance 100 - Medications Medications: Current Medications Acetaminophen (Tylenol 325mg Tab) 650 mg PO Q6 PRN PRN Reason: Headache Last Admin: 10/29/17 06:09 Dose: 650 mg Albuterol/Ipratropium (Duoneb 3 Mg/0.5 Mg (3 Ml) Ud) 3 ml INH RQ6 [facility] Last Admin: 10/29/17 13:34 Dose: 3 ml Aspirin (Ecotrin) 81 mg PO DAILY [facility] Last Admin: 10/29/17 10:56 Dose: 81 mg Clopidogrel Bisulfate (Plavix) 75 mg PO DAILY [facility] Last Admin: 10/29/17 10:56 Dose: 75 mg Enoxaparin Sodium (Lovenox) 40 mg SC DAILY [facility] Last Admin: 10/29/17 10:56 Dose: 40 mg Famotidine (Pepcid) 20 mg PO BID [facility] Last Admin: 10/29/17 10:56 Dose: 20 mg Fluoxetine HCl (Prozac) 40 mg PO DAILY [facility] Last Admin: 10/29/17 10:57 Dose: 40 mg Furosemide (Lasix) 40 mg IVP DAILY [facility] Last Admin: 10/29/17 10:56 Dose: 40 mg Home Med (Patient's Own Topical) 0 gm TOP BID [facility] Last Admin: 10/29/17 10:57 Dose: 1 gm Home Med (Patient's Own Topical) 0 gm TOP BID [facility] Last Admin: 10/29/17 10:57 Dose: 1 gm Insulin Aspart (Novolog) 0 unit SC ACHS [facility] PRN Reason: Protocol Last Admin: 10/29/17 13:08 Dose: 6 unit Insulin Detemir (Levemir) 40 unit SC HS [facility] Insulin Human Isoph/Insulin Regular (Novolin 70/30 (70/30 Units/Ml) 10 Ml) 16 units SC ACB [facility] Last Admin: 10/29/17 11:50 Dose: Not Given Insulin Human Isoph/Insulin Regular (Novolin 70/30 (70/30 Units/Ml) 10 Ml) 14 units SC QPM [facility] Last Admin: 10/29/17 11:51 Dose: Not Given Loratadine (Claritin) 10 mg PO DAILY [facility] Last Admin: 10/29/17 10:56 Dose: 10 mg Multivitamins (Hexavitamin) 1 tab PO DAILY [facility] Last Admin: 10/29/17 10:56 Dose: 1 tab Nitroglycerin (Nitro-Bid 2% Oint) 1 ea TOP Q6H [facility] Last Admin: 10/29/17 13:13 Dose: 1 ea [id number] Ethyl Esters (Lovaza) 1 gm PO DAILY [facility] Last Admin: 10/29/17 10:56 Dose: 1 gm Polymyxin/Trimethoprim Sulfate (Polytrim Ophth Soln) 0 ml OS Q6H [facility] Last Admin: 10/29/17 13:09 Dose: 1 drop Ranolazine (Ranexa) 1,000 mg PO BID [facility] Last Admin: 10/29/17 10:57 Dose: 1,000 mg Rosuvastatin Calcium (Crestor) 20 mg PO HS [facility] Last Admin: 10/28/17 21:15 Dose: 20 mg Temazepam (Restoril) 15 mg PO HS PRN PRN Reason: Sleep Last Admin: 10/29/17 00:05 Dose: 15 mg - Labs Labs: 10/29/17 06:29 10/29/17 06:29 PT 11.2 SECONDS (9.7-12.2) 10/22/17 06:02 INR 1.0 10/22/17 06:02 APTT 29 SECONDS (21-34) 10/22/17 06:02 - Constitutional Appears: Well - Head Exam Head Exam: ATRAUMATIC, NORMAL INSPECTION, NORMOCEPHALIC - Eye Exam Eye Exam: EOMI, Normal appearance, PERRL Pupil Exam: NORMAL ACCOMODATION, PERRL - ENT Exam ENT Exam: Mucous Membranes Moist, Normal Exam - Neck Exam Neck Exam: Full ROM, Normal Inspection. absent: Lymphadenopathy - Respiratory Exam Respiratory Exam: Decreased Breath Sounds - Cardiovascular Exam Cardiovascular Exam: REGULAR RHYTHM, +S1, +S2 - GI/Abdominal Exam GI & Abdominal Exam: Soft, Diminished Bowel Sounds - Rectal Exam Rectal Exam: Deferred Assessment and Plan (1) Asthma Status: Acute (2) CHF (congestive heart failure) Status: Acute (3) Dyspnea Status: Acute (4) ESPERANZA (obstructive sleep apnea) Status: Acute (5) Paresthesia Status: Acute (6) Abdominal pain Status: Acute (7) Abrasion of face Status: Acute (8) Acute chest pain Status: Acute (9) Acute coronary syndrome Status: Acute (10) Allergic urticaria Status: Acute (11) Anemia Status: Acute (12) Angina at rest Status: Acute (13) Anxiety Status: Acute (14) Arthritis Status: Acute (15) CAD (coronary artery disease) Status: Acute (16) Chest pain Status: Acute (17) Chest pain Status: Acute (18) Cholelithiasis without obstruction Status: Acute (19) Conjunctivitis Status: Acute (20) Diabetes Status: Acute (21) Dizziness Status: Acute (22) Dizziness Status: Acute (23) Elevated LFTs Status: Acute (24) Elevated liver enzymes Status: Acute (25) Elevated troponin Status: Acute (26) Gastroenteritis Status: Acute (27) Generalized edema Status: Acute (28) HTN (hypertension) Status: Acute (29) Headache Status: Acute (30) Hematuria Status: Acute (31) Hypercholesteremia Status: Acute (32) Hyperkalemia Status: Acute (33) Hyperlipemia Status: Acute (34) Knee pain Status: Acute (35) Lip numbness Status: Acute (36) NSTEMI (non-ST elevated myocardial infarction) Status: Acute (37) Odynophagia Status: Acute (38) Osteoarthritis Status: Acute (39) PFO (patent foramen ovale) Status: Acute (40) Personal history of coronary artery disease Status: Acute (41) Precordial pain Status: Acute (42) Prophylactic measure Status: Acute (43) Psychiatric disorder Status: Acute (44) Shoulder strain Status: Acute (45) TIA (transient ischemic attack) Status: Acute (46) UTI (urinary tract infection) Status: Acute (47) Vaginal candidiasis Status: Acute (48) Wound infection Status: Acute (49) Wrist injury Status: Acute (50) Diabetes type 2, uncontrolled Status: Chronic (51) Status post coronary angioplasty Status: Chronic
[2017-10-29 17:28] VITALS: BP 110/73; PULSE 79; TEMP 97.5
[2017-10-29] MEDS ORDERED: Insulin Detemir 100 units/ml Vial (Levemir) SC SCH (22:00)
== END 2017-10-29 19:57 | disposition home or self-care (01) | DRG 15 ==
LOC: C.ER 04:41 → SUPCPDRO 04:41 → C.9E 06:39 → C.6T 13:26
PROVIDERS: ADMIT Internal Medicine Nephrology; ATTEND Internal Medicine Nephrology
DX: I65.22 Occlusion and stenosis of left carotid artery (principal); I13.0 Hypertensive heart and chronic kidney disease with heart failure and stage 1 through stage 4 chronic kidney disease, or unspecified chronic kidney disease; B37.3 Candidiasis of vulva and vagina; E10.22 Type 1 diabetes mellitus with diabetic chronic kidney disease; E10.65 Type 1 diabetes mellitus with hyperglycemia; E87.5 Hyperkalemia; I50.9 Heart failure, unspecified; N18.9 Chronic kidney disease, unspecified; N39.0 Urinary tract infection, site not specified; D64.9 Anemia, unspecified; E66.9 Obesity, unspecified; Z68.41 Body mass index [BMI] 40.0-44.9, adult; E78.00 Pure hypercholesterolemia, unspecified; F41.9 Anxiety disorder, unspecified; G47.33 Obstructive sleep apnea (adult) (pediatric); H10.9 Unspecified conjunctivitis; Z86.73 Personal history of transient ischemic attack (TIA), and cerebral infarction without residual deficits; J45.909 Unspecified asthma, uncomplicated; L50.0 Allergic urticaria; Z79.4 Long term (current) use of insulin; I25.110 Atherosclerotic heart disease of native coronary artery with unstable angina pectoris; Q21.1 Atrial septal defect; Z91.013 Allergy to seafood; Z95.5 Presence of coronary angioplasty implant and graft

== ENCOUNTER 2017-11-03 11:14 | Observation (INO) | payer MEDICAID ==
[2017-11-03 11:14] VITALS: BMI 36.4
[2017-11-03 11:55] LABS: HEMOGLOBIN 13.2 g/dL (11.0-16.0); MEAN CELL VOLUME 93.4 fL (81.0-99.0); MEAN CORPUSCULAR HEMOGLOBIN 32.4 pg (27.0-31.0); MEAN CORPUSCULAR HGB CONC 34.7 g/dL (33.0-37.0); MEAN PLATELET VOLUME 10.5 fL (7.2-11.7); RBC 4.06 Mil/uL (3.80-5.20); RED CELL DISTRIBUTION WIDTH 14.3 % (11.5-14.5)
[2017-11-03 12:03] LABS: INR 1.1; PROTHROMBIN TIME 11.7 SECONDS (9.7-12.2)
--- NOTE | 2017-11-03 12:46 | C.PDOC ---
History Of Present Illness 52-year-old female, PMHx includes CAD (c/p quadruple CABG), Asthma, presents to the emergency department with complaints of mild shortness of breath that is associated with chest pressure since 05:00 this morning, that is worse with laying flat. Patient denies cough, fever, nausea/vomiting, or any other associated symptoms. [employer] Developer Siri Clay MD. Time Seen by Provider: 11/03/17 11:39 Chief Complaint (Nursing): Chest Pain Past Medical History Reviewed: Historical Data, Nursing Documentation, Vital Signs Vital Signs: Last Vital Signs Temp 97.4 F L 11/03/17 15:00 Pulse 52 L 11/03/17 15:00 Resp 18 11/03/17 15:00 BP 102/64 11/03/17 15:00 Pulse Ox 100 11/03/17 19:25 - Medical History PMH: Anxiety, Asthma, CAD, Cardia Arrhythmia, Depression, Diabetes, Gastritis, Gastrointestinal Ulcer, Gall Bladder Disease, HTN, Hypercholesterolemia, Peripheral Edema, Chronic Kidney Disease, Sleep Apnea, TIA Surgical History: CABG (september 2008 x4), Cholecystectomy, Coronary Stent (9 stents) - [facility] Procedures APPLICATION OF SPLINT (06/09/14) CORONAR ARTERIOGR-2 CATH (12/14/14) DILATION OF 1 COR ART WITH DRUG-ELUT INTRALUM, PERC APPROACH (05/26/15) DILATION OF CORONARY ARTERY, ONE SITE, PERCUTANEOUS APPROACH (03/04/16) FLUOROSCOPY OF LEFT HEART USING LOW OSMOLAR CONTRAST (05/26/15) FLUOROSCOPY OF SINGLE CORONARY ARTERY USING L OSM CONTRAST (05/26/15) INFLUENZA VACCINATION (05/08/14) LEFT HEART CARDIAC CATH (12/14/14) LT HEART ANGIOCARDIOGRAM (12/14/14) MEASURE OF CARDIAC SAMPL & PRESSURE, L HEART, PERC APPROACH (03/04/16) OTHER ENDOSCOPY OF SM INTEST (01/21/14) PLAIN RADIOGRAPHY OF LEFT HEART USING OTHER CONTRAST (03/04/16) PLAIN RADIOGRAPHY OF MULT COR ART USING OTH CONTRAST (03/04/16) TETANUS TOXOID ADMINIST (06/09/14) TRANSFUSE NONAUT RED BLOOD CELLS IN PERIPH VEIN, PERC (03/30/16) VACCINATION NEC (05/08/14) Family History: States: No Known Family Hx - Social History Hx Tobacco Use: No Hx Alcohol Use: No Hx Substance Use: No - Immunization History Hx Tetanus Toxoid Vaccination: Yes (06/09/14) Hx Influenza Vaccination: Yes (2016) Hx Pneumococcal Vaccination: Yes Review Of Systems Constitutional: Negative for: Fever, Chills Cardiovascular: Positive for: Orthopnea. Negative for: Chest Pain, Palpitations Respiratory: Positive for: Shortness of Breath, SOB with Excertion Gastrointestinal: Negative for: Nausea, Vomiting Skin: Negative for: Rash Neurological: Negative for: Weakness, Numbness, Headache, Dizziness Physical Exam - Physical Exam Appears: Non-toxic, No Acute Distress, Other (mild discomfort, speaking in full sentences) Skin: Normal Color, Warm, Dry, No Rash Head: Normacephalic Eye(s): bilateral: PERRL Nose: Normal Oral Mucosa: Moist Lips: Normal Appearing Neck: Normal ROM Cardiovascular: Rhythm Regular, No Murmur Respiratory: No Accessory Muscle Use, Rales (bases B/L), No Wheezing Extremity: Normal ROM, Pedal Edema (+1, pitting), No Deformity, No Swelling Neurological/Psych: Oriented x3, Normal Speech ED Course And Treatment - Laboratory Results Result Diagrams: 11/03/17 11:47 11/03/17 11:47 Interpretation Of ECG: normal axis. T wave inversion in V1 and AVL. No acute ST/ T wave changes Rate From EC O2 Sat by Pulse Oximetry: 100 (RA) Pulse Ox Interpretation: Normal Progress Note: Bloodwork, nebs CXR ordered and reviewed. Pt will be admitted to Dr Rubi hutton. Disposition - Disposition Disposition: HOSPITALIZED - Scribe Statement The provider has reviewed the documentation as recorded by the Scribe (Jairon Zuleta) All medical record entries made by the Scribe were at my direction and personally dictated by me. I have reviewed the chart and agree that the record accurately reflects my personal performance of the history, physical exam, medical decision making, and the department course for this patient. I have also personally directed, reviewed, and agree with the discharge instructions and disposition.
[2017-11-03 12:54] LABS: ALB/GLOB RATIO 1.1 (1.0-2.1); ALBUMIN 3.9 g/dL (3.5-5.0); ALT/SGPT 44 U/L (9-52); AST/SGOT 41 U/L (14-36); BLOOD UREA NITROGEN 15 mg/dL (7-17); CALCIUM 8.9 mg/dl (8.6-10.4); GFR AFRICAN-AMERICAN > 60; GFR NON-AFRICAN AMERICAN > 60
--- NOTE | 2017-11-03 12:55 | RAD ---
PROCEDURE: CHEST RADIOGRAPH, 1 VIEW HISTORY: SOB, CP COMPARISON: Chest radiograph dated 10/22/2017. FINDINGS: LUNGS: Prominence of the pulmonary vasculature may be secondary to AP technique and/or pulmonary vascular congestion. No focal consolidation. PLEURA: No pneumothorax or pleural fluid seen. CARDIOVASCULAR: Prior sternotomy with sternal wires and surgical clips redemonstrated. Atherosclerotic aortic calcifications. Cardiomediastinal silhouette stably enlarged. OSSEOUS STRUCTURES: Unchanged. VISUALIZED UPPER ABDOMEN: Normal. OTHER FINDINGS: None. IMPRESSION: Prominence of the pulmonary vasculature may be secondary to AP technique and/or pulmonary vascular congestion. No focal consolidation or pleural effusion.
[2017-11-03 13:05] LABS: B-TYPE NATRIURETIC PEPTIDE 1530 pg/mL (0-900)
[2017-11-03] MEDS ORDERED: Albuterol 0.083% Inhal Sol (2.5 mg/3 mL) UD IH STA (13:32)
[2017-11-03] MEDS ORDERED: Albuterol 0.083% Inhal Sol (2.5 mg/3 mL) UD ONE (14:18)
[2017-11-03 18:35] LABS: CK-MB 1.27 ng/mL (0.0-3.38)
--- NOTE | 2017-11-03 18:49 | CP.PCM.CON ---
History of Present Illness - History of Present Illness History of Present Illness: patient seen/examined. recurrent chest pain. will schedule stress test Past Patient History - Infectious Disease Hx of Infectious Diseases: None - Past Medical History & Family History Past Medical History?: Yes - Past Social History Smoking Status: Never Smoked - CARDIAC Hx Cardia Arrhythmia: Yes Hx Hypercholesterolemia: Yes Hx Hypertension: Yes Hx Peripheral Edema: Yes - PULMONARY Hx Asthma: Yes Hx Sleep Apnea: Yes - NEUROLOGICAL Hx Transient Ischemic Attacks (TIA): Yes - HEENT Hx HEENT Problems: No - RENAL Hx Chronic Kidney Disease: Yes - ENDOCRINE/METABOLIC Hx Endocrine Disorders: Yes Hx Diabetes Mellitus Type 1: Yes - HEMATOLOGICAL/ONCOLOGICAL Hx Blood Disorders: Yes - INTEGUMENTARY Hx Dermatological Problems: Yes Hx Psoriasis: Yes (mild) - MUSCULOSKELETAL/RHEUMATOLOGICAL Hx Falls: Yes - GASTROINTESTINAL Hx Gall Bladder Disease: Yes Hx Gastritis: Yes - GENITOURINARY/GYNECOLOGICAL Hx Genitourinary Disorders: No - PSYCHIATRIC Hx Anxiety: Yes Hx Depression: Yes Hx Substance Use: No - SURGICAL HISTORY Hx Cholecystectomy: Yes Hx Coronary Artery Bypass Graft: Yes (september 2008 x4) Hx Coronary Stent: Yes (9 stents) - ANESTHESIA Hx Anesthesia: Yes Hx Anesthesia Reactions: No Hx Malignant Hyperthermia: No Meds Allergies/Adverse Reactions: Allergies Allergy/AdvReac Type Severity Reaction Status Date / Time iodine Allergy Severe URTICARIA Verified 11/03/17 11:24 latex Allergy Severe URTICARIA Verified 11/03/17 11:24 seafood Allergy Severe URTICARIA Uncoded 11/03/17 11:24 Results - Vital Signs Recent Vital Signs: Last Vital Signs Temp 97.4 F L 11/03/17 15:00 Pulse 52 L 11/03/17 15:00 Resp 18 11/03/17 15:00 BP 102/64 11/03/17 15:00 Pulse Ox 100 11/03/17 18:03 - Labs Result Diagrams: 11/03/17 11:47 11/03/17 11:47 Labs: Laboratory Results - last 24 hr 11/03/17 11/03/17 11/03/17 11:47 11:47 11:47 WBC 5.0 RBC 4.06 Hgb 13.2 Hct 38.0 MCV 93.4 MCH 32.4 H MCHC 34.7 RDW 14.3 Plt Count 172 MPV 10.5 PT 11.7 INR 1.1 APTT 28 Sodium 138 Potassium 4.5 Chloride 101 Carbon Dioxide 25 Anion Gap 17 BUN 15 Creatinine 0.8 Est GFR ( Amer) > 60 Est GFR (Non-Af Amer) > 60 POC Glucose (mg/dL) Random Glucose 201 H Calcium 8.9 Total Bilirubin 0.5 AST 41 H ALT 44 Alkaline Phosphatase 69 Total Creatine Kinase 79 CK-MB (Mass) 1.60 Troponin I < 0.0120 NT-Pro-B Natriuret Pep 1530 H Total Protein 7.5 Albumin 3.9 Globulin 3.6 Albumin/Globulin Ratio 1.1 11/03/17 11/03/17 17:20 18:06 WBC RBC Hgb Hct MCV MCH MCHC RDW Plt Count MPV PT INR APTT Sodium Potassium Chloride Carbon Dioxide Anion Gap BUN Creatinine Est GFR ( Amer) Est GFR (Non-Af Amer) POC Glucose (mg/dL) 270 H Random Glucose Calcium Total Bilirubin AST ALT Alkaline Phosphatase Total Creatine Kinase 68 CK-MB (Mass) 1.27 Troponin I < 0.0120 NT-Pro-B Natriuret Pep Total Protein Albumin Globulin Albumin/Globulin Ratio
[2017-11-03] MEDS ORDERED: Albuterol-Ipratrop 3 mg / 0.5 (3 ml) UD INH PRN (20:33)
[2017-11-03] MEDS: Insulin Detemir 100 units/ml Vial (Levemir) SC SCH (21:33)
[2017-11-03] MEDS ORDERED: Insulin Detemir 100 units/ml Vial (Levemir) SC SCH (22:00)
[2017-11-04 02:25] LABS: CK-MB 1.01 ng/mL (0.0-3.38); TROPONIN I 0.014 ng/mL (0.00-0.120)
[2017-11-04] MEDS: Enoxaparin 40 mg Syringe SC SCH ×2 (09:49→14:45)
[2017-11-04] MEDS: (Novolin 70/30) NPH/Regular 70/30 Units/ml 10 ml vial SC SCH ×3 (09:49→18:20)
[2017-11-04] MEDS: Multiple Vitamins Tab PO SCH ×2 (09:49→14:45)
[2017-11-04] MEDS: Ranolazine 500 mg Extended Release Tablets PO SCH ×3 (09:50→18:21)
[2017-11-04] MEDS: Pantoprazole 40 mg EC Tab PO SCH ×2 (09:50→14:44)
[2017-11-04] MEDS ORDERED: Aspirin 325 mg EC Tablets PO SCH (10:00)
[2017-11-04] MEDS ORDERED: Ranolazine 500 mg Extended Release Tablets PO SCH (10:00)
--- NOTE | 2017-11-04 13:16 | CP.PCM.PN ---
Subjective - Date & Time of Evaluation Date of Evaluation: 11/04/17 Time of Evaluation: 10:30 - Subjective Subjective: stress test performed. await images. Objective - Vital Signs/Intake and Output Vital Signs (last 24 hours): Temp Pulse Resp BP Pulse Ox 97.9 F 61 20 117/72 95 11/04/17 09:11 11/04/17 09:11 11/04/17 09:11 11/04/17 09:11 11/04/17 09:11 - Medications Medications: Current Medications Albuterol/Ipratropium (Duoneb 3 Mg/0.5 Mg (3 Ml) Ud) 3 ml INH RQ6 PRN PRN Reason: Shortness of Breath Aspirin (Ecotrin) 81 mg PO DAILY [facility] Last Admin: 11/04/17 09:49 Dose: Not Given Clopidogrel Bisulfate (Plavix) 75 mg PO DAILY [facility] Last Admin: 11/04/17 09:50 Dose: Not Given Enoxaparin Sodium (Lovenox) 40 mg SC DAILY [facility] Last Admin: 11/04/17 09:49 Dose: Not Given Fluoxetine HCl (Prozac) 40 mg PO DAILY [facility] Last Admin: 11/04/17 09:50 Dose: Not Given Furosemide (Lasix) 40 mg IVP DAILY [facility] Last Admin: 11/04/17 09:49 Dose: Not Given Insulin Detemir (Levemir) 35 unit SC HS [facility] Last Admin: 11/03/17 21:33 Dose: 35 unit Insulin Human Isoph/Insulin Regular (Novolin 70/30 (70/30 Units/Ml) 10 Ml) 10 units SC BID [facility] Last Admin: 11/04/17 09:49 Dose: Not Given Loratadine (Claritin) 10 mg PO DAILY [facility] Last Admin: 11/04/17 09:48 Dose: Not Given Multivitamins (Hexavitamin) 1 tab PO DAILY [facility] Last Admin: 11/04/17 09:49 Dose: Not Given Pantoprazole Sodium (Protonix Ec Tab) 40 mg PO DAILY [facility] Last Admin: 11/04/17 09:50 Dose: Not Given Ranolazine (Ranexa) 1,000 mg PO BID [facility] Last Admin: 11/04/17 09:50 Dose: Not Given - Labs Labs: 11/03/17 11:47 11/03/17 11:47 PT 11.7 SECONDS (9.7-12.2) 11/03/17 11:47 INR 1.1 11/03/17 11:47 APTT 28 SECONDS (21-34) 11/03/17 11:47
--- NOTE | 2017-11-04 15:59 | CP.PCM.HP ---
Past Patient History - Infectious Disease Hx of Infectious Diseases: None - Past Medical History & Family History Past Medical History?: Yes - Past Social History Smoking Status: Never Smoked - CARDIAC Hx Cardia Arrhythmia: Yes Hx Hypercholesterolemia: Yes Hx Hypertension: Yes Hx Peripheral Edema: Yes - PULMONARY Hx Asthma: Yes Hx Sleep Apnea: Yes - NEUROLOGICAL Hx Transient Ischemic Attacks (TIA): Yes - HEENT Hx HEENT Problems: No - RENAL Hx Chronic Kidney Disease: Yes - ENDOCRINE/METABOLIC Hx Endocrine Disorders: Yes Hx Diabetes Mellitus Type 1: Yes - HEMATOLOGICAL/ONCOLOGICAL Hx Blood Disorders: Yes - INTEGUMENTARY Hx Dermatological Problems: Yes Hx Psoriasis: Yes (mild) - MUSCULOSKELETAL/RHEUMATOLOGICAL Hx Falls: Yes - GASTROINTESTINAL Hx Gall Bladder Disease: Yes Hx Gastritis: Yes - GENITOURINARY/GYNECOLOGICAL Hx Genitourinary Disorders: No - PSYCHIATRIC Hx Anxiety: Yes Hx Depression: Yes Hx Substance Use: No - SURGICAL HISTORY Hx Cholecystectomy: Yes Hx Coronary Artery Bypass Graft: Yes (september 2008 x4) Hx Coronary Stent: Yes (9 stents) - ANESTHESIA Hx Anesthesia: Yes Hx Anesthesia Reactions: No Hx Malignant Hyperthermia: No Meds Allergies/Adverse Reactions: Allergies Allergy/AdvReac Type Severity Reaction Status Date / Time iodine Allergy Severe URTICARIA Verified 11/03/17 11:24 latex Allergy Severe URTICARIA Verified 11/03/17 11:24 seafood Allergy Severe URTICARIA Uncoded 11/03/17 11:24 Physical Exam - Constitutional Appears: Well - Head Exam Head Exam: ATRAUMATIC, NORMAL INSPECTION, NORMOCEPHALIC - Eye Exam Eye Exam: EOMI, Normal appearance, PERRL Pupil Exam: NORMAL ACCOMODATION, PERRL - ENT Exam ENT Exam: Mucous Membranes Moist, Normal Exam - Neck Exam Neck exam: Positive for: Normal Inspection - Respiratory Exam Respiratory Exam: Decreased Breath Sounds - Cardiovascular Exam Cardiovascular Exam: REGULAR RHYTHM, +S1, +S2 - GI/Abdominal Exam GI & Abdominal Exam: Diminished Bowel Sounds, Soft - Rectal Exam Rectal Exam: Deferred Results - Vital Signs Recent Vital Signs: Last Vital Signs Temp 97.3 F L 11/04/17 15:48 Pulse 55 L 11/04/17 15:48 Resp 20 11/04/17 15:48 BP 153/74 H 11/04/17 15:48 Pulse Ox 93 L 11/04/17 15:48 - Labs Result Diagrams: 11/03/17 11:47 11/03/17 11:47 Labs: Laboratory Results - last 24 hr 11/03/17 11/03/17 11/03/17 17:20 18:06 21:31 POC Glucose (mg/dL) 270 H 349 H Total Creatine Kinase 68 CK-MB (Mass) 1.27 Troponin I < 0.0120 11/04/17 11/04/17 11/04/17 01:33 02:11 06:24 POC Glucose (mg/dL) 293 H 271 H Total Creatine Kinase 61 CK-MB (Mass) 1.01 Troponin I 0.0140
[2017-11-04] MEDS: Insulin Detemir 100 units/ml Vial (Levemir) SC SCH (21:42)
--- NOTE | 2017-11-04 22:49 | CARD ---
APPROVED REPORT EKG Measurement Heart [id number] VA 200P27 [id number] <Conclusion> Sinus bradycardia with sinus arrhythmia Abnormal QRS-T angle, consider primary T wave abnormality Prolonged QT Abnormal ECG
--- NOTE | 2017-11-04 22:50 | CARD ---
APPROVED REPORT EKG Measurement Heart [id number] NM 182P33 [id number] <Conclusion> Normal sinus rhythm Abnormal QRS-T angle, consider primary T wave abnormality Prolonged QT Abnormal ECG
--- NOTE | 2017-11-05 08:23 | CP.PCM.PN ---
Subjective - Date & Time of Evaluation Date of Evaluation: 11/05/17 Time of Evaluation: 08:00 - Subjective Subjective: patient has no current chest pain Objective - Vital Signs/Intake and Output Vital Signs (last 24 hours): Temp Pulse Resp BP Pulse Ox 97.9 F 54 L 18 94/56 L 100 11/05/17 07:40 11/05/17 07:40 11/05/17 07:40 11/05/17 07:40 11/05/17 07:40 - Medications Medications: Current Medications Acetaminophen (Tylenol 325mg Tab) 650 mg PO Q8 PRN PRN Reason: Headache Albuterol/Ipratropium (Duoneb 3 Mg/0.5 Mg (3 Ml) Ud) 3 ml INH RQ6 PRN PRN Reason: Shortness of Breath Aspirin (Ecotrin) 81 mg PO DAILY [facility] Last Admin: 11/04/17 14:55 Dose: 81 mg Clopidogrel Bisulfate (Plavix) 75 mg PO DAILY [facility] Last Admin: 11/04/17 14:44 Dose: 75 mg Enoxaparin Sodium (Lovenox) 40 mg SC DAILY [facility] Last Admin: 11/04/17 14:45 Dose: 40 mg Fluoxetine HCl (Prozac) 40 mg PO DAILY [facility] Last Admin: 11/04/17 14:55 Dose: Not Given Furosemide (Lasix) 40 mg IVP DAILY [facility] Last Admin: 11/04/17 14:44 Dose: 40 mg Insulin Detemir (Levemir) 35 unit SC HS [facility] Last Admin: 11/04/17 21:42 Dose: 35 unit Insulin Human Isoph/Insulin Regular (Novolin 70/30 (70/30 Units/Ml) 10 Ml) 10 units SC BID [facility] Last Admin: 11/04/17 18:20 Dose: 10 units Loratadine (Claritin) 10 mg PO DAILY [facility] Last Admin: 11/04/17 14:45 Dose: 10 mg Multivitamins (Hexavitamin) 1 tab PO DAILY [facility] Last Admin: 11/04/17 14:45 Dose: 1 tab Pantoprazole Sodium (Protonix Ec Tab) 40 mg PO DAILY [facility] Last Admin: 11/04/17 14:44 Dose: 40 mg Ranolazine (Ranexa) 1,000 mg PO BID [facility] Last Admin: 11/04/17 18:21 Dose: 1,000 mg - Labs Labs: 11/03/17 11:47 11/03/17 11:47 PT 11.7 SECONDS (9.7-12.2) 11/03/17 11:47 INR 1.1 11/03/17 11:47 APTT 28 SECONDS (21-34) 11/03/17 11:47 - Constitutional Appears: Non-toxic - Head Exam Head Exam: NORMAL INSPECTION - Eye Exam Eye Exam: Normal appearance - ENT Exam ENT Exam: Mucous Membranes Moist - Neck Exam Neck Exam: Full ROM - Respiratory Exam Respiratory Exam: NORMAL BREATHING PATTERN - Cardiovascular Exam Cardiovascular Exam: REGULAR RHYTHM - GI/Abdominal Exam GI & Abdominal Exam: Normal Bowel Sounds - Rectal Exam Rectal Exam: Deferred - Extremities Exam Extremities Exam: Pedal Edema - Back Exam Back Exam: NORMAL INSPECTION - Neurological Exam Neurological Exam: Alert - Psychiatric Exam Psychiatric exam: Normal Affect - Skin Skin Exam: Normal Color Assessment and Plan (1) Angina at rest Assessment & Plan: I reviewed the stress test with the patient. There is evidence of lateral and apical ischemia. The patient has small vessel disease of the obtuse marginals which rivasley acccounts for the ischemia. These lesions are too small for intervention. Patient needs Ranexa 1000mg BID. This will prevent angina and reduce her hosptialziations. Status: Acute (2) CAD (coronary artery disease) Assessment & Plan: antiplatelet therapy. add Ranexa Status: Acute (3) HTN (hypertension) Status: Acute (4) Hypercholesteremia Status: Acute
[2017-11-05] MEDS: Enoxaparin 40 mg Syringe SC SCH (11:19)
[2017-11-05] MEDS: Pantoprazole 40 mg EC Tab PO SCH (11:21)
[2017-11-05] MEDS: Multiple Vitamins Tab PO SCH (11:22)
[2017-11-05] MEDS: (Novolin 70/30) NPH/Regular 70/30 Units/ml 10 ml vial SC SCH (11:22)
[2017-11-05] MEDS: Ranolazine 500 mg Extended Release Tablets PO SCH ×2 (11:36→18:26)
--- NOTE | 2017-11-05 12:49 | CP.PCM.PN ---
Subjective - Date & Time of Evaluation Date of Evaluation: 11/05/17 Time of Evaluation: 12:31 - Subjective Subjective: PGY-[address] Mcelroy's service: Pt seen and examined at bedside. Nursing reports no acute events overnight. Patient denies pressure-like chest pain, but admits chest wall tenderness aggravated by palpation. No sob, palpitations, or diaphoresis. Objective - Vital Signs/Intake and Output Vital Signs (last 24 hours): Temp Pulse Resp BP Pulse Ox 97.9 F 54 L 18 118/61 100 11/05/17 07:40 11/05/17 07:40 11/05/17 07:40 11/05/17 11:37 11/05/17 07:40 - Medications Medications: Current Medications Acetaminophen (Tylenol 325mg Tab) 650 mg PO Q8 PRN PRN Reason: Headache Last Admin: 11/05/17 11:19 Dose: 650 mg Albuterol/Ipratropium (Duoneb 3 Mg/0.5 Mg (3 Ml) Ud) 3 ml INH RQ6 PRN PRN Reason: Shortness of Breath Aspirin (Ecotrin) 81 mg PO DAILY [facility] Last Admin: 11/05/17 11:21 Dose: 81 mg Clopidogrel Bisulfate (Plavix) 75 mg PO DAILY [facility] Last Admin: 11/05/17 11:22 Dose: 75 mg Enoxaparin Sodium (Lovenox) 40 mg SC DAILY [facility] Last Admin: 11/05/17 11:19 Dose: 40 mg Fluoxetine HCl (Prozac) 40 mg PO DAILY [facility] Last Admin: 11/05/17 11:23 Dose: Not Given Furosemide (Lasix) 40 mg IVP DAILY [facility] Last Admin: 11/05/17 11:37 Dose: 40 mg Insulin Detemir (Levemir) 35 unit SC HS [facility] Last Admin: 11/04/17 21:42 Dose: 35 unit Insulin Human Isoph/Insulin Regular (Novolin 70/30 (70/30 Units/Ml) 10 Ml) 10 units SC BID [facility] Last Admin: 11/05/17 11:22 Dose: 10 units Loratadine (Claritin) 10 mg PO DAILY [facility] Last Admin: 11/05/17 11:22 Dose: 10 mg Multivitamins (Hexavitamin) 1 tab PO DAILY [facility] Last Admin: 11/05/17 11:22 Dose: 1 tab Pantoprazole Sodium (Protonix Ec Tab) 40 mg PO DAILY [facility] Last Admin: 11/05/17 11:21 Dose: 40 mg Ranolazine (Ranexa) 1,000 mg PO BID [facility] Last Admin: 11/05/17 11:36 Dose: 1,000 mg - Labs Labs: 11/03/17 11:47 11/03/17 11:47 PT 11.7 SECONDS (9.7-12.2) 11/03/17 11:47 INR 1.1 11/03/17 11:47 APTT 28 SECONDS (21-34) 11/03/17 11:47 - Additional Findings Additional findings: - Constitutional Appears: Non-toxic, No Acute Distress - Head Exam Head Exam: ATRAUMATIC, NORMAL INSPECTION, NORMOCEPHALIC - Eye Exam Eye Exam: EOMI - ENT Exam ENT Exam: Mucous Membranes Moist - Neck Exam Neck Exam: Full ROM, Normal Inspection - Respiratory Exam Respiratory Exam: Decreased Breath Sounds, NORMAL BREATHING PATTERN - Cardiovascular Exam Cardiovascular Exam: +S1, +S2 - reproducible chest pain diffusely over chest wall - GI/Abdominal Exam GI & Abdominal Exam: Soft, Normal Bowel Sounds. absent: Tenderness - Extremities Exam Extremities Exam: Full ROM, Normal Inspection - Neurological Exam Neurological Exam: Alert, Awake, Oriented x3 - light touch intact in upper extremities - Psychiatric Exam Psychiatric exam: Normal Affect, Normal Mood - Skin Skin Exam: Dry, Intact, Normal Color, Warm Assessment and Plan - Assessment and Plan (Free Text) Plan: Chest Pain, R/O ACS Reproducible Trop negative x 3 on admission EKG (11/04/17): Sinus bradycardia @ 56 bpm, no axis deviation, no ST/T wave changes continue asa and plavix, nitro patch cardio consult. Dr. Caly. recs appreciated. - recurrent chest pain, will schedule stress test ASA 81mg PO Daily Lasix 40 IV daily Ranexa 1000mg PO BID crestor PO HS f/u stress test CAD (coronary artery disease) 10/23/17: Carotid duplex - R side clear. L side 60-70% stenosis of the L proximal internal carotid. s/p CABG x4 in 2008 s/p stent of the circumflex several wks ago. continue antiplatelet therapy. Plavix 75 mg PO DAILY [facility] ASA 81 mg PO DAILY [facility] Lovaza 1 gm PO DAILY [facility] HTN (hypertension) Well controlled continue to monitor ESPERANZA (obstructive sleep apnea) Dr. Kidd, Pulm pre owned sales consultant -continue CPAP at night Asthma Dr. Kidd, Pulm pre owned sales consultant continue duonebs as needed Claritin 10mg PO Daily T2DM, uncontrolled Last A1c (10/29/17): 11.2 Levemir increase to 40 units HS Novolin 70/30 13 units BID ISS Hypoglycemia protocol CHF (diastolic- HFpEF) BNP 1530 ECHO (11/05/17): EF 50%, LV fxn normal. No AR, MR, TR, PVR. continue lasix daily I/O daily weights Hx CVA 10/27: Head/Neck CTA 10/27- 1. Significant stenosis of left carotid bifurcation/ proximal left internal carotid artery estimated at approximately 60-70%. 2. There are calcified plaque changes also seen within both cavernous carotid and the distal vertebral arteries with the significant stenosis of the right cavernous carotid and left vertebral artery. See full report. 10/26: Carotid duplex - R side clear. L side 60-70% stenosis of the L proximal internal carotid. see full report. Patient for CT angio tomorrow morning at 8am. Patient has a seafood allergy. Per Dr. Stauffer's recommendation, patient will be following protocol for allergy - Prednisone 50mg PO at 13hrs, 6hrs, and 1hr before contrast. Benadryl 50mg PO 1hr before contrast. Patient will followup with Dr. Stauffer to have MRI/MRA performed as outpatient. 10/25: MRI not performed because pt had cardiac stent placed several wks ago. Anxiety continue prozac daily Prophylaxis continue pepcid continue sc lovenox
[2017-11-05] MEDS ORDERED: (Novolin 70/30) NPH/Regular 70/30 Units/ml 10 ml vial SC SCH (12:50)
--- NOTE | 2017-11-05 13:07 | CARD ---
APPROVED REPORT EKG Measurement Heart [id number] MA 180P41 [id number] <Conclusion> Sinus bradycardia Otherwise normal ECG
--- NOTE | 2017-11-05 16:47 | CP.PCM.PN ---
Subjective - Date & Time of Evaluation Date of Evaluation: 11/05/17 Time of Evaluation: 10:00 - Subjective Subjective: clinically same Objective - Vital Signs/Intake and Output Vital Signs (last 24 hours): Temp Pulse Resp BP Pulse Ox 97.9 F 54 L 18 118/61 100 11/05/17 07:40 11/05/17 10:00 11/05/17 07:40 11/05/17 11:37 11/05/17 07:40 - Medications Medications: Current Medications Acetaminophen (Tylenol 325mg Tab) 650 mg PO Q8 PRN PRN Reason: Headache Last Admin: 11/05/17 11:19 Dose: 650 mg Albuterol/Ipratropium (Duoneb 3 Mg/0.5 Mg (3 Ml) Ud) 3 ml INH RQ6 PRN PRN Reason: Shortness of Breath Aspirin (Ecotrin) 81 mg PO DAILY [facility] Last Admin: 11/05/17 11:21 Dose: 81 mg Clopidogrel Bisulfate (Plavix) 75 mg PO DAILY [facility] Last Admin: 11/05/17 11:22 Dose: 75 mg Enoxaparin Sodium (Lovenox) 40 mg SC DAILY [facility] Last Admin: 11/05/17 11:19 Dose: 40 mg Fluoxetine HCl (Prozac) 40 mg PO DAILY [facility] Last Admin: 11/05/17 11:23 Dose: Not Given Furosemide (Lasix) 40 mg IVP DAILY [facility] Last Admin: 11/05/17 11:37 Dose: 40 mg Insulin Detemir (Levemir) 40 unit SC [facility] Insulin Human Isoph/Insulin Regular (Novolin 70/30 (70/30 Units/Ml) 10 Ml) 13 units SC BID [facility] Loratadine (Claritin) 10 mg PO DAILY [facility] Last Admin: 11/05/17 11:22 Dose: 10 mg Multivitamins (Hexavitamin) 1 tab PO DAILY [facility] Last Admin: 11/05/17 11:22 Dose: 1 tab Pantoprazole Sodium (Protonix Ec Tab) 40 mg PO DAILY [facility] Last Admin: 11/05/17 11:21 Dose: 40 mg Ranolazine (Ranexa) 1,000 mg PO BID [facility] Last Admin: 11/05/17 11:36 Dose: 1,000 mg - Labs Labs: 11/03/17 11:47 11/03/17 11:47 PT 11.7 SECONDS (9.7-12.2) 11/03/17 11:47 INR 1.1 11/03/17 11:47 APTT 28 SECONDS (21-34) 11/03/17 11:47 - Constitutional Appears: Well - Head Exam Head Exam: ATRAUMATIC, NORMAL INSPECTION, NORMOCEPHALIC - Eye Exam Eye Exam: EOMI, Normal appearance, PERRL Pupil Exam: NORMAL ACCOMODATION, PERRL - ENT Exam ENT Exam: Mucous Membranes Moist, Normal Exam - Neck Exam Neck Exam: Full ROM, Normal Inspection. absent: Lymphadenopathy - Respiratory Exam Respiratory Exam: Decreased Breath Sounds - Cardiovascular Exam Cardiovascular Exam: REGULAR RHYTHM, +S1, +S2 - GI/Abdominal Exam GI & Abdominal Exam: Soft, Diminished Bowel Sounds - Rectal Exam Rectal Exam: Deferred
[2017-11-05 17:18] VITALS: BP 91/53; PULSE 58; RESP 20; TEMP 98.6; O2SAT 97
[2017-11-05] MEDS ORDERED: Insulin Detemir 100 units/ml Vial (Levemir) SC SCH (22:00)
== END 2017-11-05 19:12 | disposition home or self-care (01) ==
LOC: C.ER 11:14 → C.6T 13:47
PROVIDERS: ADMIT Internal Medicine Nephrology; ATTEND Internal Medicine Nephrology
DX: R07.9 Chest pain, unspecified (principal); E10.22 Type 1 diabetes mellitus with diabetic chronic kidney disease; E78.00 Pure hypercholesterolemia, unspecified; G47.30 Sleep apnea, unspecified; I12.9 Hypertensive chronic kidney disease with stage 1 through stage 4 chronic kidney disease, or unspecified chronic kidney disease; I25.119 Atherosclerotic heart disease of native coronary artery with unspecified angina pectoris; Z86.73 Personal history of transient ischemic attack (TIA), and cerebral infarction without residual deficits; Z90.49 Acquired absence of other specified parts of digestive tract; Z87.11 Personal history of peptic ulcer disease; Z79.4 Long term (current) use of insulin; Z95.1 Presence of aortocoronary bypass graft; Z95.5 Presence of coronary angioplasty implant and graft
CPT/HCPCS: 36415; 71045; 78452; 80053; 82948; 83880; 84484; 85027; 85610; 85730; 93005; 93017; 94640; 96372; 96374; 96376; 99285; A9502; G0378; J1650; J1940; J2785

== ENCOUNTER 2017-11-25 13:53 | Inpatient (IN) | payer MEDICAID ==
[2017-11-25 13:54] VITALS: BMI 36.4
[2017-11-25] MEDS ORDERED: Heparin25000 units/250ml 1/2NS 25,000 UNITS/250 ML BAG IV STA (14:37)
[2017-11-25] MEDS ORDERED: Aspirin 325 mg EC Tablets PO STA (14:37)
--- NOTE | 2017-11-25 14:37 | C.PDOC ---
History Of Present Illness 52 y/o female presents to the ER complaining of recurrent on/off left-sided chest pain which has been present since yesterday. Pt states that the pain became worse at 1 pm today. Pt reports that she was admitted last month s/p stress test ( report reviewed). Pt's physician, Dr. Rodriguez informed her that her lesions were too small to have interventional therapy. She is compliant with her medications and she was asymptomatic until yesterday. Pt describes the pain as localized and pressure, worse compared to last time she had similar pain. Pt admits she has some SOB. Otherwise, she denies having fever, chills, cough, and other complaints at this time. History Per: Patient History/Exam Limitations: no limitations Onset/Duration Of Symptoms: Days Current Symptoms Are (Timing): Still Present Severity: Moderate Past Medical History Reviewed: Historical Data, Nursing Documentation, Vital Signs Vital Signs: Last Vital Signs Temp 97.8 F 11/25/17 14:15 Pulse 96 H 11/25/17 15:00 Resp 18 11/25/17 14:15 BP 151/87 H 11/25/17 14:15 Pulse Ox 99 11/25/17 17:07 - Medical History PMH: Anxiety, Asthma, CAD, Cardia Arrhythmia, Depression, Diabetes, Gastritis, Gastrointestinal Ulcer, Gall Bladder Disease, HTN, Hypercholesterolemia, Peripheral Edema, Chronic Kidney Disease, Sleep Apnea, TIA Surgical History: CABG (september 2008 x4), Cholecystectomy, Coronary Stent (9 stents) - [facility] Procedures APPLICATION OF SPLINT (06/09/14) CORONAR ARTERIOGR-2 CATH (12/14/14) DILATION OF 1 COR ART WITH DRUG-ELUT INTRALUM, PERC APPROACH (05/26/15) DILATION OF CORONARY ARTERY, ONE SITE, PERCUTANEOUS APPROACH (03/04/16) FLUOROSCOPY OF LEFT HEART USING LOW OSMOLAR CONTRAST (05/26/15) FLUOROSCOPY OF SINGLE CORONARY ARTERY USING L OSM CONTRAST (05/26/15) INFLUENZA VACCINATION (05/08/14) LEFT HEART CARDIAC CATH (12/14/14) LT HEART ANGIOCARDIOGRAM (12/14/14) MEASURE OF CARDIAC SAMPL & PRESSURE, L HEART, PERC APPROACH (03/04/16) OTHER ENDOSCOPY OF SM INTEST (01/21/14) PLAIN RADIOGRAPHY OF LEFT HEART USING OTHER CONTRAST (03/04/16) PLAIN RADIOGRAPHY OF MULT COR ART USING OTH CONTRAST (03/04/16) TETANUS TOXOID ADMINIST (06/09/14) TRANSFUSE NONAUT RED BLOOD CELLS IN PERIPH VEIN, PERC (03/30/16) VACCINATION NEC (05/08/14) Family History: States: No Known Family Hx - Social History Hx Tobacco Use: No Hx Alcohol Use: No Hx Substance Use: No - Immunization History Hx Tetanus Toxoid Vaccination: Yes (06/09/14) Hx Influenza Vaccination: Yes (2015) Hx Pneumococcal Vaccination: Yes Review Of Systems Except As Marked, All Systems Reviewed And Found Negative. Constitutional: Negative for: Fever, Chills Cardiovascular: Positive for: Chest Pain Respiratory: Positive for: Shortness of Breath. Negative for: Cough Physical Exam - Physical Exam Appears: Non-toxic, Other (moderate distress ) Skin: Normal Color, Warm, Dry Head: Atraumatic, Normacephalic Eye(s): bilateral: Normal Inspection Chest: Symmetrical, Other (NARD) Cardiovascular: Rhythm Regular Respiratory: Normal Breath Sounds, No Rales, No Rhonchi, No Wheezing, Other ((- ) edema) Gastrointestinal/Abdominal: Normal Exam, Soft, No Tenderness, No Guarding, No Rebound Neurological/Psych: Oriented x3, Normal Speech ED Course And Treatment - Laboratory Results Result Diagrams: 11/25/17 14:59 11/25/17 14:59 ECG: Interpreted By Il ECG Rhythm: Sinus Rhythm ECG Interpretation: Abnormal Interpretation Of ECG: NEW DEPRESSIONS I, V4-6 COMPARED 11/03/2017 Rate From EC O2 Sat by Pulse Oximetry: 99 - Radiology CXR Interpretation: Yes: Other (no changes from 11/03/17) Progress - Re-Evaluation Re-evaluation Note: 11/25/17 14:[address] RODRIGUEZ 11/25/17 14:46 D/W DR RODRIGUEZ AWARE OF ER FINDINGS, AGREES W PLAN. PT MAY NEED EMERGENT CATH 11/25/17 15:16 D/W DR RODRIGUEZ: CONCERN FOR ELEVATED GLU. ICU CONSULT, NO PLANS FOR EMERGENT CATH @ THIS TIME. WILL CONSULT PS CP PERSIST BUT IMPROVED COMPARED TO PRIOR S/P NG X 1. 11/25/17 15:53 CP FREE APPEARS COMFORTABLE IMPROVED FROM PRIOR. VSS. 11/25/17 15:57 D/W DR Dina OROSCO C/F ICU AWARE OF ER FINDINGS ACCEPTS FOR ICU. REPEAT EKG ST DEPRESSIONS RESOLVED. NSR @ 87. IMPROVED FROM INITIAL. PENDING PMD CALLBACK 11/25/17 16:43 PENDING PMD CALLBACK 11/25/17 17:06 D/W PMD WILL ADMIT - Data Reviewed Data Reviewed: Lab, Diagnostic imaging, EKG, Old records - Critical Care Citical Care: Excluding Proc Time Critical Care Time: 90 minutes Disposition Counseled Patient/Family Regarding: Studies Performed, Diagnosis - Disposition Disposition: HOSPITALIZED Disposition Time: 17:06 Condition: STABLE - POA Present On Arrival: Poor Glycemic Control - Clinical Impression Clinical Impression: Unstable angina - Scribe Statement The provider has reviewed the documentation as recorded by the Danaibe Sree Agosto Provider Attestation: All medical record entries made by the Scribe were at my direction and personally dictated by me. I have reviewed the chart and agree that the record accurately reflects my personal performance of the history, physical exam, medical decision making, and the department course for this patient. I have also personally directed, reviewed, and agree with the discharge instructions and disposition. Decision To Admit - Pt Status Changed To: Hospital Disposition Of: Inpatient - Admit Certification Admit to Inpatient:: After my assessment, the patient will require hospitalization for at least two midnights. This is because of the severity of symptoms shown, intensity of services needed, and/or the medical risk in this patient being treated as an outpatient. - InPatient: Physician Admission Certification: I certify that this patient requires 2 or more midnights of care for the following reason:: SEE NOTE - . Bed Request Type: ICU Admitting Physician: Andres Null Patient Diagnosis: Unstable angina
[2017-11-25] MEDS ORDERED: Aspirin 325 mg EC Tablets PO ONE (14:59)
[2017-11-25 15:03] LABS: BASO % 0.6 % (0.0-2.0); EOS % 0.6 % (0.0-4.0); HEMOGLOBIN 13.7 g/dL (11.0-16.0); LYMPH # 1.4 K/uL (1.0-4.3); MEAN CELL VOLUME 93.8 fL (81.0-99.0); MEAN CORPUSCULAR HEMOGLOBIN 32.1 pg (27.0-31.0); MEAN CORPUSCULAR HGB CONC 34.2 g/dL (33.0-37.0); MEAN PLATELET VOLUME 10.2 fL (7.2-11.7); MONO # 0.6 K/uL (0.0-0.8); MONO % 11.6 % (0.0-10.0); NEUT # 2.9 K/uL (1.8-7.0); NEUT % 59.2 % (50.0-75.0); NRBC % 0.1 % (0.0-2.0); RBC 4.28 Mil/uL (3.80-5.20); RED CELL DISTRIBUTION WIDTH 13.9 % (11.5-14.5); WHITE BLOOD COUNT 4.9 K/uL (4.8-10.8)
[2017-11-25] MEDS ORDERED: Heparin25000 units/250ml 1/2NS 25,000 UNITS/250 ML BAG IV PRN ×3 (15:05→21:45)
[2017-11-25 15:18] LABS: INR 1.1; PROTHROMBIN TIME 11.8 SECONDS (9.7-12.2)
[2017-11-25 15:26] LABS: ALB/GLOB RATIO 1.1 (1.0-2.1); ALBUMIN 4.2 g/dL (3.5-5.0); ALT/SGPT 40 U/L (9-52); AST/SGOT 45 U/L (14-36); BLOOD UREA NITROGEN 15 mg/dL (7-17); CALCIUM 9.3 mg/dl (8.6-10.4); GFR AFRICAN-AMERICAN > 60; GFR NON-AFRICAN AMERICAN 58
[2017-11-25 15:34] LABS: B-TYPE NATRIURETIC PEPTIDE 260 pg/mL (0-900)
[2017-11-25 15:34] LABS: VENOUS BLOOD GAS BASE EXCESS 0.9 mmol/L (0.0-2.0); VENOUS BLOOD GAS PCO2 33 mmHg (40-60); VENOUS BLOOD GAS PO2 31 mm/Hg (30-55); VENOUS BLOOD PH 7.47 (7.32-7.43)
[2017-11-25] MEDS ORDERED: (Novolin R) Insulin Human Regular 100 units/ml vial IV STA (15:44)
[2017-11-25] MEDS ORDERED: Sodium Chloride 0.9% 1,000 ML IV ONE (15:45)
[2017-11-25] MEDS ORDERED: Sodium Chloride 0.9% 1,000 ML ONE (16:01)
--- NOTE | 2017-11-25 16:01 | CP.PCM.CON ---
<Jaelyn Masterson - Last Filed: 11/25/17 19:34> History of Present Illness - History of Present Illness History of Present Illness: Critical Care Consult Note This is a 52 year old female with PMHx of CAD with CABG x 4 vessels in 2008, with recent stent placement in LCX 09/2017, Left Carotid Stenosis 60-70%, HTN, HF with preservedEF (LVEF50%), T2DM- uncontrolled with A1C 10.3, Hx CVA, ESPERANZA, Asthma, Anxiety admitted to ICU for Unstable Angina with DKA, metabolic acidosis with anion gap 14. Currently chest pain resolved after nitro, patient is resting comfortably. Denied fever, chills, headache, chest pain, SOB, abdominal pain, n/v/d/c, or urinary symptoms. PMHx: CAD with CABG x 4 vessels in 2008, with recent stent placement in LCX 2017, Left Carotid Stenosis 60-70%, HTN, HF with preservedEF (LVEF50%), T2DM- uncontrolled with A1C 10.3, Hx CVA, ESPERANZA, Asthma, Anxiety PSHx: CABG, PCI Meds: As per MAR All: Iodine SHx: Denied x 3 FHx: Unremarkable Past Patient History - Infectious Disease Hx of Infectious Diseases: None - Past Medical History & Family History Past Medical History?: Yes - Past Social History Smoking Status: Never Smoked - CARDIAC Hx Cardia Arrhythmia: Yes Hx Hypercholesterolemia: Yes Hx Hypertension: Yes Hx Peripheral Edema: Yes - PULMONARY Hx Asthma: Yes Hx Sleep Apnea: Yes - NEUROLOGICAL Hx Transient Ischemic Attacks (TIA): Yes - HEENT Hx HEENT Problems: No - RENAL Hx Chronic Kidney Disease: Yes - ENDOCRINE/METABOLIC Hx Endocrine Disorders: Yes Hx Diabetes Mellitus Type 1: Yes - HEMATOLOGICAL/ONCOLOGICAL Hx Blood Disorders: Yes - INTEGUMENTARY Hx Dermatological Problems: Yes Hx Psoriasis: Yes (mild) - MUSCULOSKELETAL/RHEUMATOLOGICAL Hx Falls: Yes - GASTROINTESTINAL Hx Gall Bladder Disease: Yes Hx Gastritis: Yes - GENITOURINARY/GYNECOLOGICAL Hx Genitourinary Disorders: No - PSYCHIATRIC Hx Anxiety: Yes Hx Depression: Yes Hx Substance Use: No - SURGICAL HISTORY Hx Cholecystectomy: Yes Hx Coronary Artery Bypass Graft: Yes (september 2008 x4) Hx Coronary Stent: Yes (9 stents) - ANESTHESIA Hx Anesthesia: Yes Hx Anesthesia Reactions: No Hx Malignant Hyperthermia: No Meds Allergies/Adverse Reactions: Allergies Allergy/AdvReac Type Severity Reaction Status Date / Time iodine Allergy Severe URTICARIA Verified 11/25/17 14:33 latex Allergy Severe URTICARIA Verified 11/25/17 14:33 seafood Allergy Severe URTICARIA Uncoded 11/25/17 14:33 - Medications Medications: Current Medications Heparin Sodium/Sodium Chloride (Heparin 83126 Units/250ml 1/2 Normal Saline) 25 ,000 units in 250 mls @ 48.988 mls/hr IV ONCE PRN; Protocol; 60 UNITS/KG/HR PRN Reason: TITRATE TO MD ORDER Sodium Chloride (Sodium Chloride 0.9%) 1,000 mls @ 1,000 mls/hr IV .Q1H ONE Stop: 11/25/17 16:44 Nitroglycerin (Nitrostat Sl Tab) 0.4 mg SL Q5M NARCISA Last Admin: 11/25/17 15:16 Dose: 0.4 mg Physical Exam - Constitutional Appears: No Acute Distress - Head Exam Head Exam: NORMAL INSPECTION, NORMOCEPHALIC - Eye Exam Eye Exam: EOMI, Normal appearance, PERRL Pupil Exam: NORMAL ACCOMODATION - ENT Exam ENT Exam: Mucous Membranes Moist - Respiratory Exam Respiratory Exam: Clear to Auscultation Bilateral, NORMAL BREATHING PATTERN - Cardiovascular Exam Cardiovascular Exam: Tachycardia - GI/Abdominal Exam GI & Abdominal Exam: Normal Bowel Sounds, Soft. absent: Distended, Tenderness - Extremities Exam Extremities exam: Positive for: normal inspection, pedal pulses present. Negative for: pedal edema, tenderness - Neurological Exam Neurological exam: Alert, CN II-XII Intact, Oriented x3 - Psychiatric Exam Psychiatric exam: Normal Affect, Normal Mood - Skin Skin Exam: Dry, Intact, Normal Color, Warm Results - Vital Signs Recent Vital Signs: Last Vital Signs Temp 97.8 F 11/25/17 14:15 Pulse 96 H 11/25/17 15:00 Resp 18 11/25/17 14:15 BP 151/87 H 11/25/17 14:15 Pulse Ox 99 11/25/17 15:56 - Labs Result Diagrams: 11/25/17 14:59 11/25/17 14:59 Labs: Laboratory Results - last 24 hr 11/25/17 11/25/17 11/25/17 14:28 14:59 14:59 WBC 4.9 RBC 4.28 Hgb 13.7 Hct 40.2 MCV 93.8 MCH 32.1 H MCHC 34.2 RDW 13.9 Plt Count 184 MPV 10.2 Neut % (Auto) 59.2 Lymph % (Auto) 28.0 [place] % (Auto) 11.6 H Eos % (Auto) 0.6 Baso % (Auto) 0.6 Neut # (Auto) 2.9 Lymph # (Auto) 1.4 [place] # (Auto) 0.6 Eos # (Auto) 0.0 Baso # (Auto) 0.0 PT 11.8 INR 1.1 APTT 29 pO2 VBG pH VBG pCO2 VBG HCO3 VBG Total CO2 VBG O2 Sat (Calc) VBG Base Excess VBG Potassium Glucose Lactate Sodium Potassium Chloride Carbon Dioxide Anion Gap BUN Creatinine Est GFR ( Amer) Est GFR (Non-Af Amer) POC Glucose (mg/dL) 455 H* Random Glucose Calcium Total Bilirubin AST ALT Alkaline Phosphatase Troponin I NT-Pro-B Natriuret Pep Total Protein Albumin Globulin Albumin/Globulin Ratio Venous Blood Potassium B-Hydroxybutyrate 11/25/17 11/25/17 14:59 15:27 WBC RBC Hgb Hct MCV MCH MCHC RDW Plt Count MPV Neut % (Auto) Lymph % (Auto) [place] % (Auto) Eos % (Auto) Baso % (Auto) Neut # (Auto) Lymph # (Auto) [place] # (Auto) Eos # (Auto) Baso # (Auto) PT INR APTT pO2 31 VBG pH 7.47 H VBG pCO2 33 L VBG HCO3 24.7 VBG Total CO2 25.0 VBG O2 Sat (Calc) 69.7 H VBG Base Excess 0.9 VBG Potassium 3.6 Glucose 407 H* D Lactate 2.3 H Sodium 136 137.0 Potassium 3.9 Chloride 97 L 105.0 Carbon Dioxide 25 Anion Gap 18 BUN 15 Creatinine 1.0 Est GFR ( Amer) > 60 Est GFR (Non-Af Amer) 58 POC Glucose (mg/dL) Random Glucose 446 H* D Calcium 9.3 Total Bilirubin 0.8 AST 45 H ALT 40 Alkaline Phosphatase 91 Troponin I 0.0200 NT-Pro-B Natriuret Pep 260 Total Protein 8.2 Albumin 4.2 Globulin 4.0 H Albumin/Globulin Ratio 1.1 Venous Blood Potassium 3.6 B-Hydroxybutyrate 0.09 Assessment & Plan - Assessment and Plan (Free Text) Assessment: This is a 52 year old female with PMHx of CAD with CABG x 4 vessels in 2008, with recent stent placement in LCX 09/2017, Left Carotid Stenosis 60-70%, HTN, HF with preservedEF (LVEF50%), ESPERANZA, Asthma, T2DM- uncontrolled with A1C 10.3, Hx CVA, Anxiety admitted to ICU for Unstable Angina with DKA, metabolic acidosis with anion gap 14. Plan: Neuro: AAOX3 GCS 15 A: Hx CVA - Started Crestor Cardio: A: Unstable Angina - Patient evaluated by Dr. Clay on 11/04/17: Stress test showed: "Evidence of lateral and apical ischemia. The patient has small vessel disease of the obtuse marginals which likely accounts for the ischemia. These lesions are too small for intervention. Patient needs Ranexa 1000mg BID. This will prevent angina and reduce her hospitalizations". - ECHO (11/05/17): EF 50%, LV fxn normal. No AR, MR, TR, PVR. - Troponins negative x 2 - EKG: initial in ED had NEW DEPRESSIONS I, V4-6 COMPARED 11/03/2017, repeat after nitro had resolved ST depressions, NSR @ 87 BPM - Pending cardiac cath - Started on ASA, Plavix, heparin drip A: CAD - s/p CABG x4 in 2008 - 10/23/17: Carotid duplex - R side clear. L side 60-70% stenosis of the L proximal internal carotid. - s/p stent of the circumflex several wks ago. A: Diastolic HFpEF - I/O, daily weights, Fluid restriction - ECHO (11/05/17): EF 50%, LV fxn normal. No AR, MR, TR, PVR. - BNP - 260 A: Carotid Stenosis - 10/27: Head/Neck CTA 10/27- 1. Significant stenosis of left carotid bifurcation/ proximal left internal carotid artery estimated at approximately 60-70%. 2. There are calcified plaque changes also seen within both cavernous carotid and the distal vertebral arteries with the significant stenosis of the right cavernous carotid and left vertebral artery. See full report. 10/26: Carotid duplex - R side clear. L side 60-70% stenosis of the L proximal internal carotid. see full report. Patient for CT angio tomorrow morning at 8am. Patient has a seafood allergy. Per Dr. Stauffer's recommendation, patient will be following protocol for allergy - Prednisone 50mg PO at 13hrs, 6hrs, and 1hr before contrast. Benadryl 50mg PO 1hr before contrast. Patient will followup with Dr. Stauffer to have MRI/MRA performed as outpatient. 10/25: MRI not performed because pt had cardiac stent placed several wks ago. A: HTN - Patient was controlled prior without medications - Started on Lisinopril 2.5 mg PO (renal protection), Metoprolol 12.5 daily Pulm: A: Asthma - Duonebs PRN - Claritin 10mg A: ESPERANZA - CPAP at night Endo: A: Uncontrolled T2DM - Last A1c (10/29/17): 11.2 --> 11/25/17 10.3 - Accuchecks - Anion gap 14, lactate 2.3 --> 1.4 - Resume home regimen: Levemir 40 units HS, Novolin 70/30 13 units BID, ISS- low - Started Crestor 10mg, Lisinopril 2.5 mg PO, Metoprolol 12.5 daily Psych: A: Anxiety - Continue Prozac Prophylaxis - Protonix - SCDs, Heparin drip - Patient has Iodine allergy - will need to premedicate prior to any contrast DW Dr. Perry Mcelroy, Jaelyn Masterson DO, PGY-1 <Shannon Mcelroy - Last Filed: 11/26/17 13:41> Meds - Medications Medications: Current Medications Albuterol/Ipratropium (Duoneb 3 Mg/0.5 Mg (3 Ml) Ud) 3 ml INH RQ6 PRN PRN Reason: Shortness of Breath Aspirin (Aspirin Chewable) 81 mg PO DAILY [facility] Last Admin: 11/26/17 10:29 Dose: 81 mg Clopidogrel Bisulfate (Plavix) 75 mg PO DAILY [facility] Last Admin: 11/26/17 10:29 Dose: 75 mg Famotidine (Pepcid) 20 mg PO DAILY [facility] Last Admin: 11/26/17 10:29 Dose: 20 mg Fluoxetine HCl (Prozac) 40 mg PO DAILY [facility] Last Admin: 11/26/17 10:29 Dose: 40 mg Furosemide (Lasix) 40 mg PO DAILY [facility] Last Admin: 11/26/17 10:29 Dose: 40 mg Insulin Aspart (Novolog Mix 70/30 (70/30 Units/Ml)) 10 units SC BID [facility] Last Admin: 11/26/17 10:42 Dose: 10 units Insulin Detemir (Levemir) 40 unit SC [facility] Insulin Human Regular (Novolin R) 0 unit SC ACHS [facility] PRN Reason: Protocol Last Admin: 11/26/17 12:34 Dose: 4 units Lisinopril (Zestril) 2.5 mg PO DAILY [facility] Last Admin: 11/26/17 10:30 Dose: 2.5 mg Metoprolol Succinate (Toprol Xl) 12.5 mg PO DAILY [facility] Last Admin: 11/26/17 10:30 Dose: 12.5 mg Nitroglycerin (Nitrostat Sl Tab) 0.4 mg SL Q5M PRN Rosuvastatin Calcium (Crestor) 10 mg PO [facility] Last Admin: 11/25/17 21:09 Dose: 10 mg Results - Vital Signs Recent Vital Signs: Last Vital Signs Temp 97.3 F L 11/26/17 12:00 Pulse 68 11/26/17 12:19 Resp 20 11/26/17 12:19 BP 150/67 11/26/17 12:19 Pulse Ox 99 11/26/17 12:19 - Labs Result Diagrams: 11/26/17 06:12 11/26/17 06:14 Labs: Laboratory Results - last 24 hr 11/25/17 11/25/17 11/25/17 14:28 14:59 14:59 WBC 4.9 RBC 4.28 Hgb 13.7 Hct 40.2 MCV 93.8 MCH 32.1 H MCHC 34.2 RDW 13.9 Plt Count 184 MPV 10.2 Neut % (Auto) 59.2 Lymph % (Auto) 28.0 [place] % (Auto) 11.6 H Eos % (Auto) 0.6 Baso % (Auto) 0.6 Neut # (Auto) 2.9 Lymph # (Auto) 1.4 [place] # (Auto) 0.6 Eos # (Auto) 0.0 Baso # (Auto) 0.0 PT 11.8 INR 1.1 APTT 29 pO2 VBG pH VBG pCO2 VBG HCO3 VBG Total CO2 VBG O2 Sat (Calc) VBG Base Excess VBG Potassium Glucose Lactate Sodium Potassium Chloride Carbon Dioxide Anion Gap BUN Creatinine Est GFR ( Amer) Est GFR (Non-Af Amer) POC Glucose (mg/dL) 455 H* Random Glucose Hemoglobin A1c Lactic Acid Calcium Phosphorus Magnesium Total Bilirubin AST ALT Alkaline Phosphatase Total Creatine Kinase CK-MB (Mass) Troponin I NT-Pro-B Natriuret Pep Total Protein Albumin Globulin Albumin/Globulin Ratio Triglycerides Cholesterol LDL Cholesterol Direct HDL Cholesterol Free T4 TSH 3rd Generation Venous Blood Potassium B-Hydroxybutyrate Blood Type Antibody Screen 11/25/17 11/25/17 11/25/17 14:59 15:27 16:22 WBC RBC Hgb Hct MCV MCH MCHC RDW Plt Count MPV Neut % (Auto) Lymph % (Auto) [place] % (Auto) Eos % (Auto) Baso % (Auto) Neut # (Auto) Lymph # (Auto) [place] # (Auto) Eos # (Auto) Baso # (Auto) PT INR APTT pO2 31 VBG pH 7.47 H VBG pCO2 33 L VBG HCO3 24.7 VBG Total CO2 25.0 VBG O2 Sat (Calc) 69.7 H VBG Base Excess 0.9 VBG Potassium 3.6 Glucose 407 H* D Lactate 2.3 H Sodium 136 137.0 Potassium 3.9 Chloride 97 L 105.0 Carbon Dioxide 25 Anion Gap 18 BUN 15 Creatinine 1.0 Est GFR ( Amer) > 60 Est GFR (Non-Af Amer) 58 POC Glucose (mg/dL) Random Glucose 446 H* D Hemoglobin A1c Lactic Acid Calcium 9.3 Phosphorus Magnesium Total Bilirubin 0.8 AST 45 H ALT 40 Alkaline Phosphatase 91 Total Creatine Kinase CK-MB (Mass) Troponin I 0.0200 NT-Pro-B Natriuret Pep 260 Total Protein 8.2 Albumin 4.2 Globulin 4.0 H Albumin/Globulin Ratio 1.1 Triglycerides 199 H Cholesterol 275 H LDL Cholesterol Direct 202 H HDL Cholesterol 45 Free T4 TSH 3rd Generation 1.24 Venous Blood Potassium 3.6 B-Hydroxybutyrate 0.09 Blood Type Antibody Screen 11/25/17 11/25/17 11/25/17 16:22 16:22 16:29 WBC RBC Hgb Hct MCV MCH MCHC RDW Plt Count MPV Neut % (Auto) Lymph % (Auto) [place] % (Auto) Eos % (Auto) Baso % (Auto) Neut # (Auto) Lymph # (Auto) [place] # (Auto) Eos # (Auto) Baso # (Auto) PT INR APTT pO2 VBG pH VBG pCO2 VBG HCO3 VBG Total CO2 VBG O2 Sat (Calc) VBG Base Excess VBG Potassium Glucose Lactate Sodium Potassium Chloride Carbon Dioxide Anion Gap BUN Creatinine Est GFR ( Amer) Est GFR (Non-Af Amer) POC Glucose (mg/dL) Random Glucose Hemoglobin A1c 10.3 H Lactic Acid Calcium Phosphorus Magnesium Total Bilirubin AST ALT Alkaline Phosphatase Total Creatine Kinase 104 CK-MB (Mass) 1.93 Troponin I 0.0200 NT-Pro-B Natriuret Pep Total Protein Albumin Globulin Albumin/Globulin Ratio Triglycerides Cholesterol LDL Cholesterol Direct HDL Cholesterol Free T4 1.43 TSH 3rd Generation Venous Blood Potassium B-Hydroxybutyrate Blood Type Antibody Screen 11/25/17 11/25/17 11/25/17 16:36 18:19 18:19 WBC RBC Hgb Hct MCV MCH MCHC RDW Plt Count MPV Neut % (Auto) Lymph % (Auto) [place] % (Auto) Eos % (Auto) Baso % (Auto) Neut # (Auto) Lymph # (Auto) [place] # (Auto) Eos # (Auto) Baso # (Auto) PT INR APTT pO2 VBG pH VBG pCO2 VBG HCO3 VBG Total CO2 VBG O2 Sat (Calc) VBG Base Excess VBG Potassium Glucose Lactate Sodium Potassium Chloride Carbon Dioxide Anion Gap BUN Creatinine Est GFR ( Amer) Est GFR (Non-Af Amer) POC Glucose (mg/dL) 272 H Random Glucose Hemoglobin A1c Lactic Acid 1.4 Calcium Phosphorus Magnesium Total Bilirubin AST ALT Alkaline Phosphatase Total Creatine Kinase CK-MB (Mass) Troponin I NT-Pro-B Natriuret Pep Total Protein Albumin Globulin Albumin/Globulin Ratio Triglycerides Cholesterol LDL Cholesterol Direct HDL Cholesterol Free T4 TSH 3rd Generation Venous Blood Potassium B-Hydroxybutyrate Blood Type A POSITIVE Antibody Screen Negative 11/25/17 11/25/17 11/25/17 18:32 20:56 21:10 WBC RBC Hgb Hct MCV MCH MCHC RDW Plt Count MPV Neut % (Auto) Lymph % (Auto) [place] % (Auto) Eos % (Auto) Baso % (Auto) Neut # (Auto) Lymph # (Auto) [place] # (Auto) Eos # (Auto) Baso # (Auto) PT INR APTT 40 H D pO2 VBG pH VBG pCO2 VBG HCO3 VBG Total CO2 VBG O2 Sat (Calc) VBG Base Excess VBG Potassium Glucose Lactate Sodium Potassium Chloride Carbon Dioxide Anion Gap BUN Creatinine Est GFR ( Amer) Est GFR (Non-Af Amer) POC Glucose (mg/dL) 245 H 219 H Random Glucose Hemoglobin A1c Lactic Acid Calcium Phosphorus Magnesium Total Bilirubin AST ALT Alkaline Phosphatase Total Creatine Kinase CK-MB (Mass) Troponin I NT-Pro-B Natriuret Pep Total Protein Albumin Globulin Albumin/Globulin Ratio Triglycerides Cholesterol LDL Cholesterol Direct HDL Cholesterol Free T4 TSH 3rd Generation Venous Blood Potassium B-Hydroxybutyrate Blood Type Antibody Screen 11/26/17 11/26/17 11/26/17 00:54 06:12 06:12 WBC 4.0 L RBC 3.73 L Hgb 12.2 Hct 35.2 MCV 94.5 MCH 32.8 H MCHC 34.7 RDW 14.0 Plt Count 152 MPV 10.4 Neut % (Auto) 34.1 L Lymph % (Auto) 51.2 H [place] % (Auto) 12.5 H Eos % (Auto) 1.6 Baso % (Auto) 0.6 Neut # (Auto) 1.4 L Lymph # (Auto) 2.0 [place] # (Auto) 0.5 Eos # (Auto) 0.1 Baso # (Auto) 0.0 PT INR APTT 185 H* D pO2 VBG pH VBG pCO2 VBG HCO3 VBG Total CO2 VBG O2 Sat (Calc) VBG Base Excess VBG Potassium Glucose Lactate Sodium Potassium Chloride Carbon Dioxide Anion Gap BUN Creatinine Est GFR ( Amer) Est GFR (Non-Af Amer) POC Glucose (mg/dL) Random Glucose Hemoglobin A1c Lactic Acid Calcium Phosphorus Magnesium Total Bilirubin AST ALT Alkaline Phosphatase Total Creatine Kinase 77 CK-MB (Mass) 2.25 Troponin I 0.1700 H* NT-Pro-B Natriuret Pep Total Protein Albumin Globulin Albumin/Globulin Ratio Triglycerides Cholesterol LDL Cholesterol Direct HDL Cholesterol Free T4 TSH 3rd Generation Venous Blood Potassium B-Hydroxybutyrate Blood Type Antibody Screen 11/26/17 11/26/17 11/26/17 06:14 07:23 12:23 WBC RBC Hgb Hct MCV MCH MCHC RDW Plt Count MPV Neut % (Auto) Lymph % (Auto) [place] % (Auto) Eos % (Auto) Baso % (Auto) Neut # (Auto) Lymph # (Auto) [place] # (Auto) Eos # (Auto) Baso # (Auto) PT INR APTT pO2 VBG pH VBG pCO2 VBG HCO3 VBG Total CO2 VBG O2 Sat (Calc) VBG Base Excess VBG Potassium Glucose Lactate Sodium 138 Potassium 4.1 Chloride 104 Carbon Dioxide 26 Anion Gap 13 BUN 15 Creatinine 0.6 L Est GFR ( Amer) > 60 Est GFR (Non-Af Amer) > 60 POC Glucose (mg/dL) 204 H 303 H Random Glucose 182 H Hemoglobin A1c Lactic Acid Calcium 8.3 L Phosphorus 3.5 Magnesium 1.6 Total Bilirubin 1.0 AST 47 H ALT 33 Alkaline Phosphatase 69 Total Creatine Kinase CK-MB (Mass) Troponin I NT-Pro-B Natriuret Pep Total Protein 6.8 Albumin 3.3 L D Globulin 3.5 Albumin/Globulin Ratio 1.0 Triglycerides Cholesterol LDL Cholesterol Direct HDL Cholesterol Free T4 TSH 3rd Generation Venous Blood Potassium B-Hydroxybutyrate Blood Type Antibody Screen Assessment & Plan - Assessment and Plan (Free Text) Plan: Above patient seen and examined at bedside. Patient with uncontrolled BGM, CAD/ CABG presents with chest pain (NSTEMI) -continue to monitor -cardiac cath as per remedial teacher -continue DAPT/acei -BGM controll Patient remails hemodynamically stable. - Date & Time Date: 11/25/17 Time: 19:00
[2017-11-25] MEDS ORDERED: (Novolin R) Insulin Human Regular 100 units/ml vial ONE (16:02)
[2017-11-25 16:50] LABS: CK-MB 1.93 ng/mL (0.0-3.38); TROPONIN I 0.02 ng/mL (0.00-0.120)
[2017-11-25] MEDS ORDERED: Albuterol-Ipratrop 3 mg / 0.5 (3 ml) UD INH PRN (17:30)
[2017-11-25] MEDS ORDERED: Insulin Detemir 100 units/ml Vial (Levemir) SC ONE (17:45)
[2017-11-25] MEDS: Sodium Chloride 0.9% 1,000 ML IV SCH (18:30)
--- NOTE | 2017-11-25 19:29 | CP.PCM.HP ---
Past Patient History - Infectious Disease Hx of Infectious Diseases: None - Past Medical History & Family History Past Medical History?: Yes - Past Social History Smoking Status: Never Smoked - CARDIAC Hx Cardia Arrhythmia: Yes Hx Hypercholesterolemia: Yes Hx Hypertension: Yes Hx Peripheral Edema: Yes - PULMONARY Hx Asthma: Yes Hx Sleep Apnea: Yes - NEUROLOGICAL Hx Transient Ischemic Attacks (TIA): Yes - HEENT Hx HEENT Problems: No - RENAL Hx Chronic Kidney Disease: Yes - ENDOCRINE/METABOLIC Hx Endocrine Disorders: Yes Hx Diabetes Mellitus Type 1: Yes - HEMATOLOGICAL/ONCOLOGICAL Hx Blood Disorders: Yes - INTEGUMENTARY Hx Dermatological Problems: Yes Hx Psoriasis: Yes (mild) - MUSCULOSKELETAL/RHEUMATOLOGICAL Hx Falls: Yes - GASTROINTESTINAL Hx Gall Bladder Disease: Yes Hx Gastritis: Yes - GENITOURINARY/GYNECOLOGICAL Hx Genitourinary Disorders: No - PSYCHIATRIC Hx Anxiety: Yes Hx Depression: Yes Hx Substance Use: No - SURGICAL HISTORY Hx Cholecystectomy: Yes Hx Coronary Artery Bypass Graft: Yes (september 2008 x4) Hx Coronary Stent: Yes (9 stents) - ANESTHESIA Hx Anesthesia: Yes Hx Anesthesia Reactions: No Hx Malignant Hyperthermia: No Meds Allergies/Adverse Reactions: Allergies Allergy/AdvReac Type Severity Reaction Status Date / Time iodine Allergy Severe URTICARIA Verified 11/25/17 14:33 latex Allergy Severe URTICARIA Verified 11/25/17 14:33 seafood Allergy Severe URTICARIA Uncoded 11/25/17 14:33 Physical Exam - Constitutional Appears: Well - Head Exam Head Exam: ATRAUMATIC, NORMAL INSPECTION, NORMOCEPHALIC - Eye Exam Eye Exam: EOMI, Normal appearance, PERRL Pupil Exam: NORMAL ACCOMODATION, PERRL - ENT Exam ENT Exam: Mucous Membranes Moist, Normal Exam - Neck Exam Neck exam: Positive for: Normal Inspection - Respiratory Exam Respiratory Exam: Decreased Breath Sounds - Cardiovascular Exam Cardiovascular Exam: REGULAR RHYTHM, +S1, +S2 - GI/Abdominal Exam GI & Abdominal Exam: Diminished Bowel Sounds, Soft - Rectal Exam Rectal Exam: Deferred Results - Vital Signs Recent Vital Signs: Last Vital Signs Temp 98.0 F 11/25/17 18:33 Pulse 80 11/25/17 18:33 Resp 16 11/25/17 18:33 BP 114/45 L 11/25/17 18:33 Pulse Ox 99 11/25/17 18:33 - Labs Result Diagrams: 11/25/17 14:59 11/25/17 14:59 Labs: Laboratory Results - last 24 hr 11/25/17 11/25/17 11/25/17 14:28 14:59 14:59 WBC 4.9 RBC 4.28 Hgb 13.7 Hct 40.2 MCV 93.8 MCH 32.1 H MCHC 34.2 RDW 13.9 Plt Count 184 MPV 10.2 Neut % (Auto) 59.2 Lymph % (Auto) 28.0 [place] % (Auto) 11.6 H Eos % (Auto) 0.6 Baso % (Auto) 0.6 Neut # (Auto) 2.9 Lymph # (Auto) 1.4 [place] # (Auto) 0.6 Eos # (Auto) 0.0 Baso # (Auto) 0.0 PT 11.8 INR 1.1 APTT 29 pO2 VBG pH VBG pCO2 VBG HCO3 VBG Total CO2 VBG O2 Sat (Calc) VBG Base Excess VBG Potassium Glucose Lactate Sodium Potassium Chloride Carbon Dioxide Anion Gap BUN Creatinine Est GFR ( Amer) Est GFR (Non-Af Amer) POC Glucose (mg/dL) 455 H* Random Glucose Hemoglobin A1c Lactic Acid Calcium Total Bilirubin AST ALT Alkaline Phosphatase Total Creatine Kinase CK-MB (Mass) Troponin I NT-Pro-B Natriuret Pep Total Protein Albumin Globulin Albumin/Globulin Ratio Triglycerides Cholesterol LDL Cholesterol Direct HDL Cholesterol Free T4 TSH 3rd Generation Venous Blood Potassium B-Hydroxybutyrate 11/25/17 11/25/17 11/25/17 14:59 15:27 16:22 WBC RBC Hgb Hct MCV MCH MCHC RDW Plt Count MPV Neut % (Auto) Lymph % (Auto) [place] % (Auto) Eos % (Auto) Baso % (Auto) Neut # (Auto) Lymph # (Auto) [place] # (Auto) Eos # (Auto) Baso # (Auto) PT INR APTT pO2 31 VBG pH 7.47 H VBG pCO2 33 L VBG HCO3 24.7 VBG Total CO2 25.0 VBG O2 Sat (Calc) 69.7 H VBG Base Excess 0.9 VBG Potassium 3.6 Glucose 407 H* D Lactate 2.3 H Sodium 136 137.0 Potassium 3.9 Chloride 97 L 105.0 Carbon Dioxide 25 Anion Gap 18 BUN 15 Creatinine 1.0 Est GFR ( Amer) > 60 Est GFR (Non-Af Amer) 58 POC Glucose (mg/dL) Random Glucose 446 H* D Hemoglobin A1c Lactic Acid Calcium 9.3 Total Bilirubin 0.8 AST 45 H ALT 40 Alkaline Phosphatase 91 Total Creatine Kinase CK-MB (Mass) Troponin I 0.0200 NT-Pro-B Natriuret Pep 260 Total Protein 8.2 Albumin 4.2 Globulin 4.0 H Albumin/Globulin Ratio 1.1 Triglycerides 199 H Cholesterol 275 H LDL Cholesterol Direct 202 H HDL Cholesterol 45 Free T4 TSH 3rd Generation 1.24 Venous Blood Potassium 3.6 B-Hydroxybutyrate 0.09 11/25/17 11/25/17 11/25/17 16:22 16:22 16:29 WBC RBC Hgb Hct MCV MCH MCHC RDW Plt Count MPV Neut % (Auto) Lymph % (Auto) [place] % (Auto) Eos % (Auto) Baso % (Auto) Neut # (Auto) Lymph # (Auto) [place] # (Auto) Eos # (Auto) Baso # (Auto) PT INR APTT pO2 VBG pH VBG pCO2 VBG HCO3 VBG Total CO2 VBG O2 Sat (Calc) VBG Base Excess VBG Potassium Glucose Lactate Sodium Potassium Chloride Carbon Dioxide Anion Gap BUN Creatinine Est GFR ( Amer) Est GFR (Non-Af Amer) POC Glucose (mg/dL) Random Glucose Hemoglobin A1c 10.3 H Lactic Acid Calcium Total Bilirubin AST ALT Alkaline Phosphatase Total Creatine Kinase 104 CK-MB (Mass) 1.93 Troponin I 0.0200 NT-Pro-B Natriuret Pep Total Protein Albumin Globulin Albumin/Globulin Ratio Triglycerides Cholesterol LDL Cholesterol Direct HDL Cholesterol Free T4 1.43 TSH 3rd Generation Venous Blood Potassium B-Hydroxybutyrate 11/25/17 11/25/17 11/25/17 16:36 18:19 18:32 WBC RBC Hgb Hct MCV MCH MCHC RDW Plt Count MPV Neut % (Auto) Lymph % (Auto) [place] % (Auto) Eos % (Auto) Baso % (Auto) Neut # (Auto) Lymph # (Auto) [place] # (Auto) Eos # (Auto) Baso # (Auto) PT INR APTT pO2 VBG pH VBG pCO2 VBG HCO3 VBG Total CO2 VBG O2 Sat (Calc) VBG Base Excess VBG Potassium Glucose Lactate Sodium Potassium Chloride Carbon Dioxide Anion Gap BUN Creatinine Est GFR ( Amer) Est GFR (Non-Af Amer) POC Glucose (mg/dL) 272 H 245 H Random Glucose Hemoglobin A1c Lactic Acid 1.4 Calcium Total Bilirubin AST ALT Alkaline Phosphatase Total Creatine Kinase CK-MB (Mass) Troponin I NT-Pro-B Natriuret Pep Total Protein Albumin Globulin Albumin/Globulin Ratio Triglycerides Cholesterol LDL Cholesterol Direct HDL Cholesterol Free T4 TSH 3rd Generation Venous Blood Potassium B-Hydroxybutyrate
[2017-11-25] MEDS ORDERED: Albuterol-Ipratrop 3 mg / 0.5 (3 ml) UD INH SCH (20:00)
[2017-11-25] MEDS: (Novolog Mix 70/30) Insulin Aspart/Insulin Aspar 100 units/ml SC SCH (20:11)
[2017-11-25] MEDS: (Novolin R) Insulin Human Regular 100 units/ml vial SC SCH (21:30)
[2017-11-25] MEDS ORDERED: Insulin Detemir 100 units/ml Vial (Levemir) SC SCH (22:00)
[2017-11-26 02:06] LABS: CK-MB 2.25 ng/mL (0.0-3.38); TROPONIN I 0.17 ng/mL (0.00-0.120)
[2017-11-26] MEDS: Sodium Chloride 0.9% 1,000 ML IV SCH (02:30)
[2017-11-26 06:25] LABS: BASO % 0.6 % (0.0-2.0); EOS # 0.1 K/uL (0.0-0.7); EOS % 1.6 % (0.0-4.0); HEMOGLOBIN 12.2 g/dL (11.0-16.0); LYMPH % 51.2 % (20.0-40.0); MEAN CELL VOLUME 94.5 fL (81.0-99.0); MEAN CORPUSCULAR HEMOGLOBIN 32.8 pg (27.0-31.0); MEAN CORPUSCULAR HGB CONC 34.7 g/dL (33.0-37.0); MEAN PLATELET VOLUME 10.4 fL (7.2-11.7); MONO # 0.5 K/uL (0.0-0.8); MONO % 12.5 % (0.0-10.0); NEUT # 1.4 K/uL (1.8-7.0); NEUT % 34.1 % (50.0-75.0); NRBC % 0.1 % (0.0-2.0); RBC 3.73 Mil/uL (3.80-5.20)
[2017-11-26 07:38] LABS: ALBUMIN 3.3 g/dL (3.5-5.0); ALT/SGPT 33 U/L (9-52); AST/SGOT 47 U/L (14-36); BLOOD UREA NITROGEN 15 mg/dL (7-17); CALCIUM 8.3 mg/dl (8.6-10.4); GFR AFRICAN-AMERICAN > 60; GFR NON-AFRICAN AMERICAN > 60
--- NOTE | 2017-11-26 07:44 | RAD ---
Chest x-ray single frontal view History: Chest pain. Comparison: 11/03/2017 Findings: Mild venous congestion. Mild patchy increased markings at the left lung base. Status post median sternotomy. Heart size within normal limits. Mild calcific tendinopathy of the left proximal humerus. Impression: Mild venous congestion. Mild patchy increased markings at the left lung base. Status post median sternotomy. Heart size within normal limits. Mild calcific tendinopathy of the left proximal humerus.
--- NOTE | 2017-11-26 08:01 | CP.PCM.CON ---
History of Present Illness - History of Present Illness History of Present Illness: patient seen/examined. full consult to follow. known CAD presents with DKA, chest pain. ST segment depression. currently pain free with medical stabilization. will need continued control of blood sugar. LDL>200!!! discussed the need for evnetual cardiac catheterization, however will need medical therapy first. d/c heparin Past Patient History - Infectious Disease Hx of Infectious Diseases: None - Past Medical History & Family History Past Medical History?: Yes - Past Social History Smoking Status: Former Smoker - CARDIAC Hx Cardiac Disorders: Yes Hx Cardia Arrhythmia: Yes Hx Hypercholesterolemia: Yes Hx Hypertension: Yes Hx Peripheral Edema: Yes - PULMONARY Hx Respiratory Disorders: Yes Hx Asthma: Yes Hx Sleep Apnea: Yes - NEUROLOGICAL Hx Neurological Disorder: Yes Hx Transient Ischemic Attacks (TIA): Yes - HEENT Hx HEENT Problems: No - RENAL Hx Chronic Kidney Disease: Yes - ENDOCRINE/METABOLIC Hx Endocrine Disorders: Yes Hx Diabetes Mellitus Type 1: Yes - HEMATOLOGICAL/ONCOLOGICAL Hx Blood Disorders: Yes - INTEGUMENTARY Hx Dermatological Problems: Yes Hx Psoriasis: Yes (mild) - MUSCULOSKELETAL/RHEUMATOLOGICAL Hx Musculoskeletal Disorders: Yes Hx Falls: No - GASTROINTESTINAL Hx Gastrointestinal Disorders: Yes Hx Gall Bladder Disease: Yes Hx Gastritis: Yes - GENITOURINARY/GYNECOLOGICAL Hx Genitourinary Disorders: No - PSYCHIATRIC Hx Psychophysiologic Disorder: Yes Hx Anxiety: Yes Hx Depression: Yes Hx Substance Use: No - SURGICAL HISTORY Hx Surgeries: Yes Hx Cholecystectomy: Yes Hx Coronary Artery Bypass Graft: Yes (september 2008 x4) Hx Coronary Stent: Yes (9 stents) - ANESTHESIA Hx Anesthesia: Yes Hx Anesthesia Reactions: No Hx Malignant Hyperthermia: No Has any member of the family had a problem w/ anesthesia?: No Meds Allergies/Adverse Reactions: Allergies Allergy/AdvReac Type Severity Reaction Status Date / Time iodine Allergy Severe URTICARIA Verified 11/25/17 14:33 latex Allergy Severe URTICARIA Verified 11/25/17 14:33 seafood Allergy Severe URTICARIA Uncoded 11/25/17 14:33 - Medications Medications: Current Medications Albuterol/Ipratropium (Duoneb 3 Mg/0.5 Mg (3 Ml) Ud) 3 ml INH RQ6 PRN PRN Reason: Shortness of Breath Aspirin (Aspirin Chewable) 81 mg PO DAILY [facility] Clopidogrel Bisulfate (Plavix) 75 mg PO DAILY [facility] Clopidogrel Bisulfate (Plavix) 75 mg PO DAILY [facility] Docusate Sodium (Colace) 100 mg PO DAILY [facility] Famotidine (Pepcid) 20 mg PO DAILY [facility] Fluoxetine HCl (Prozac) 40 mg PO DAILY [facility] Furosemide (Lasix) 40 mg PO DAILY [facility] Sodium Chloride (Sodium Chloride 0.9%) 1,000 mls @ 125 mls/hr IV .Q8H [facility] Last Admin: 11/26/17 02:30 Dose: 125 mls/hr Heparin Sodium/Sodium Chloride (Heparin 09679 Units/250ml 1/2 Normal Saline) 25 ,000 units in 250 mls @ 15.647 mls/hr IV .[id number] PRN; Protocol; 14 UNITS/KG/HR PRN Reason: ADJUST RATE PER PROTOCOL Last Admin: 11/25/17 22:00 Dose: 14 units/kg/hr, 15.647 mls/hr Insulin Aspart (Novolog Mix 70/30 (70/30 Units/Ml)) 10 units SC BID [facility] Last Admin: 11/25/17 20:11 Dose: 10 units Insulin Detemir (Levemir) 40 unit SC HS [facility] Insulin Detemir (Levemir) 35 unit SC HS [facility] Insulin Human Isoph/Insulin Regular (Novolin 70/30 (70/30 Units/Ml) 10 Ml) 10 units SC BID [facility] Insulin Human Regular (Novolin R) 0 unit SC ACHS [facility] PRN Reason: Protocol Last Admin: 11/25/17 21:30 Dose: Not Given Lisinopril (Zestril) 2.5 mg PO DAILY [facility] Loratadine (Claritin) 10 mg PO DAILY [facility] Metoprolol Succinate (Toprol Xl) 12.5 mg PO DAILY [facility] Nitroglycerin (Nitrostat Sl Tab) 0.4 mg SL Q5M PRN [id number] Ethyl Esters (Lovaza) 1,000 gm PO BID [facility] Pantoprazole Sodium (Protonix Ec Tab) 40 mg PO DAILY [facility] Ranolazine (Ranexa) 1,000 mg PO BID [facility] Rosuvastatin Calcium (Crestor) 10 mg PO HS [facility] Last Admin: 11/25/17 21:09 Dose: 10 mg Results - Vital Signs Recent Vital Signs: Last Vital Signs Temp 97.8 F 11/26/17 00:00 Pulse 63 11/26/17 07:00 Resp 9 L 11/26/17 07:00 BP 131/53 L 11/26/17 06:58 Pulse Ox 100 11/26/17 07:00 - Labs Result Diagrams: 11/26/17 06:12 11/26/17 06:14 Labs: Laboratory Results - last 24 hr 11/25/17 11/25/17 11/25/17 14:28 14:59 14:59 WBC 4.9 RBC 4.28 Hgb 13.7 Hct 40.2 MCV 93.8 MCH 32.1 H MCHC 34.2 RDW 13.9 Plt Count 184 MPV 10.2 Neut % (Auto) 59.2 Lymph % (Auto) 28.0 Stephenson % (Auto) 11.6 H Eos % (Auto) 0.6 Baso % (Auto) 0.6 Neut # (Auto) 2.9 Lymph # (Auto) 1.4 Stephenson # (Auto) 0.6 Eos # (Auto) 0.0 Baso # (Auto) 0.0 PT 11.8 INR 1.1 APTT 29 pO2 VBG pH VBG pCO2 VBG HCO3 VBG Total CO2 VBG O2 Sat (Calc) VBG Base Excess VBG Potassium Glucose Lactate Sodium Potassium Chloride Carbon Dioxide Anion Gap BUN Creatinine Est GFR ( Amer) Est GFR (Non-Af Amer) POC Glucose (mg/dL) 455 H* Random Glucose Hemoglobin A1c Lactic Acid Calcium Phosphorus Magnesium Total Bilirubin AST ALT Alkaline Phosphatase Total Creatine Kinase CK-MB (Mass) Troponin I NT-Pro-B Natriuret Pep Total Protein Albumin Globulin Albumin/Globulin Ratio Triglycerides Cholesterol LDL Cholesterol Direct HDL Cholesterol Free T4 TSH 3rd Generation Venous Blood Potassium B-Hydroxybutyrate Blood Type Antibody Screen 11/25/17 11/25/17 11/25/17 14:59 15:27 16:22 WBC RBC Hgb Hct MCV MCH MCHC RDW Plt Count MPV Neut % (Auto) Lymph % (Auto) Stephenson % (Auto) Eos % (Auto) Baso % (Auto) Neut # (Auto) Lymph # (Auto) Stephenson # (Auto) Eos # (Auto) Baso # (Auto) PT INR APTT pO2 31 VBG pH 7.47 H VBG pCO2 33 L VBG HCO3 24.7 VBG Total CO2 25.0 VBG O2 Sat (Calc) 69.7 H VBG Base Excess 0.9 VBG Potassium 3.6 Glucose 407 H* D Lactate 2.3 H Sodium 136 137.0 Potassium 3.9 Chloride 97 L 105.0 Carbon Dioxide 25 Anion Gap 18 BUN 15 Creatinine 1.0 Est GFR ( Amer) > 60 Est GFR (Non-Af Amer) 58 POC Glucose (mg/dL) Random Glucose 446 H* D Hemoglobin A1c Lactic Acid Calcium 9.3 Phosphorus Magnesium Total Bilirubin 0.8 AST 45 H ALT 40 Alkaline Phosphatase 91 Total Creatine Kinase CK-MB (Mass) Troponin I 0.0200 NT-Pro-B Natriuret Pep 260 Total Protein 8.2 Albumin 4.2 Globulin 4.0 H Albumin/Globulin Ratio 1.1 Triglycerides 199 H Cholesterol 275 H LDL Cholesterol Direct 202 H HDL Cholesterol 45 Free T4 TSH 3rd Generation 1.24 Venous Blood Potassium 3.6 B-Hydroxybutyrate 0.09 Blood Type Antibody Screen 11/25/17 11/25/17 11/25/17 16:22 16:22 16:29 WBC RBC Hgb Hct MCV MCH MCHC RDW Plt Count MPV Neut % (Auto) Lymph % (Auto) Stephenson % (Auto) Eos % (Auto) Baso % (Auto) Neut # (Auto) Lymph # (Auto) Stephenson # (Auto) Eos # (Auto) Baso # (Auto) PT INR APTT pO2 VBG pH VBG pCO2 VBG HCO3 VBG Total CO2 VBG O2 Sat (Calc) VBG Base Excess VBG Potassium Glucose Lactate Sodium Potassium Chloride Carbon Dioxide Anion Gap BUN Creatinine Est GFR ( Amer) Est GFR (Non-Af Amer) POC Glucose (mg/dL) Random Glucose Hemoglobin A1c 10.3 H Lactic Acid Calcium Phosphorus Magnesium Total Bilirubin AST ALT Alkaline Phosphatase Total Creatine Kinase 104 CK-MB (Mass) 1.93 Troponin I 0.0200 NT-Pro-B Natriuret Pep Total Protein Albumin Globulin Albumin/Globulin Ratio Triglycerides Cholesterol LDL Cholesterol Direct HDL Cholesterol Free T4 1.43 TSH 3rd Generation Venous Blood Potassium B-Hydroxybutyrate Blood Type Antibody Screen 11/25/17 11/25/17 11/25/17 16:36 18:19 18:19 WBC RBC Hgb Hct MCV MCH MCHC RDW Plt Count MPV Neut % (Auto) Lymph % (Auto) Stephenson % (Auto) Eos % (Auto) Baso % (Auto) Neut # (Auto) Lymph # (Auto) Stephenson # (Auto) Eos # (Auto) Baso # (Auto) PT INR APTT pO2 VBG pH VBG pCO2 VBG HCO3 VBG Total CO2 VBG O2 Sat (Calc) VBG Base Excess VBG Potassium Glucose Lactate Sodium Potassium Chloride Carbon Dioxide Anion Gap BUN Creatinine Est GFR ( Amer) Est GFR (Non-Af Amer) POC Glucose (mg/dL) 272 H Random Glucose Hemoglobin A1c Lactic Acid 1.4 Calcium Phosphorus Magnesium Total Bilirubin AST ALT Alkaline Phosphatase Total Creatine Kinase CK-MB (Mass) Troponin I NT-Pro-B Natriuret Pep Total Protein Albumin Globulin Albumin/Globulin Ratio Triglycerides Cholesterol LDL Cholesterol Direct HDL Cholesterol Free T4 TSH 3rd Generation Venous Blood Potassium B-Hydroxybutyrate Blood Type A POSITIVE Antibody Screen Negative 11/25/17 11/25/17 11/25/17 18:32 20:56 21:10 WBC RBC Hgb Hct MCV MCH MCHC RDW Plt Count MPV Neut % (Auto) Lymph % (Auto) Stephenson % (Auto) Eos % (Auto) Baso % (Auto) Neut # (Auto) Lymph # (Auto) Stephenson # (Auto) Eos # (Auto) Baso # (Auto) PT INR APTT 40 H D pO2 VBG pH VBG pCO2 VBG HCO3 VBG Total CO2 VBG O2 Sat (Calc) VBG Base Excess VBG Potassium Glucose Lactate Sodium Potassium Chloride Carbon Dioxide Anion Gap BUN Creatinine Est GFR ( Amer) Est GFR (Non-Af Amer) POC Glucose (mg/dL) 245 H 219 H Random Glucose Hemoglobin A1c Lactic Acid Calcium Phosphorus Magnesium Total Bilirubin AST ALT Alkaline Phosphatase Total Creatine Kinase CK-MB (Mass) Troponin I NT-Pro-B Natriuret Pep Total Protein Albumin Globulin Albumin/Globulin Ratio Triglycerides Cholesterol LDL Cholesterol Direct HDL Cholesterol Free T4 TSH 3rd Generation Venous Blood Potassium B-Hydroxybutyrate Blood Type Antibody Screen 11/26/17 11/26/17 11/26/17 00:54 06:12 06:12 WBC 4.0 L RBC 3.73 L Hgb 12.2 Hct 35.2 MCV 94.5 MCH 32.8 H MCHC 34.7 RDW 14.0 Plt Count 152 MPV 10.4 Neut % (Auto) 34.1 L Lymph % (Auto) 51.2 H Stephenson % (Auto) 12.5 H Eos % (Auto) 1.6 Baso % (Auto) 0.6 Neut # (Auto) 1.4 L Lymph # (Auto) 2.0 Stephenson # (Auto) 0.5 Eos # (Auto) 0.1 Baso # (Auto) 0.0 PT INR APTT 185 H* D pO2 VBG pH VBG pCO2 VBG HCO3 VBG Total CO2 VBG O2 Sat (Calc) VBG Base Excess VBG Potassium Glucose Lactate Sodium Potassium Chloride Carbon Dioxide Anion Gap BUN Creatinine Est GFR ( Amer) Est GFR (Non-Af Amer) POC Glucose (mg/dL) Random Glucose Hemoglobin A1c Lactic Acid Calcium Phosphorus Magnesium Total Bilirubin AST ALT Alkaline Phosphatase Total Creatine Kinase 77 CK-MB (Mass) 2.25 Troponin I 0.1700 H* NT-Pro-B Natriuret Pep Total Protein Albumin Globulin Albumin/Globulin Ratio Triglycerides Cholesterol LDL Cholesterol Direct HDL Cholesterol Free T4 TSH 3rd Generation Venous Blood Potassium B-Hydroxybutyrate Blood Type Antibody Screen 11/26/17 11/26/17 06:14 07:23 WBC RBC Hgb Hct MCV MCH MCHC RDW Plt Count MPV Neut % (Auto) Lymph % (Auto) Stephenson % (Auto) Eos % (Auto) Baso % (Auto) Neut # (Auto) Lymph # (Auto) Stephenson # (Auto) Eos # (Auto) Baso # (Auto) PT INR APTT pO2 VBG pH VBG pCO2 VBG HCO3 VBG Total CO2 VBG O2 Sat (Calc) VBG Base Excess VBG Potassium Glucose Lactate Sodium 138 Potassium 4.1 Chloride 104 Carbon Dioxide 26 Anion Gap 13 BUN 15 Creatinine 0.6 L Est GFR ( Amer) > 60 Est GFR (Non-Af Amer) > 60 POC Glucose (mg/dL) 204 H Random Glucose 182 H Hemoglobin A1c Lactic Acid Calcium 8.3 L Phosphorus 3.5 Magnesium 1.6 Total Bilirubin 1.0 AST 47 H ALT 33 Alkaline Phosphatase 69 Total Creatine Kinase CK-MB (Mass) Troponin I NT-Pro-B Natriuret Pep Total Protein 6.8 Albumin 3.3 L D Globulin 3.5 Albumin/Globulin Ratio 1.0 Triglycerides Cholesterol LDL Cholesterol Direct HDL Cholesterol Free T4 TSH 3rd Generation Venous Blood Potassium B-Hydroxybutyrate Blood Type Antibody Screen
--- NOTE | 2017-11-26 08:14 | CP.PCM.CON ---
History of Present Illness - History of Present Illness History of Present Illness: I was asked to see patient by Dr Mcelroy. Patient is a 52 year old female with CAD s/p CABG and multiple PCI brittle diabetes mellitus, hypercholesterolemia who presents wtih chest pain. The symptoms have been intermittent and progressive. The patient states pressure is left sided and associated with dyspnea. She was found to be in DKA and was admitted to ICU. She has no current chest pain. EKG showed T wave inversions which normalized when chest pain was relieved. She was placed on heparin drip. Review of Systems - Constitutional Constitutional: absent: As Per HPI, Anorexia, Chills, Daytime Sleepiness, Excessive Sweating, Fatigue, Fever, Frequent Falls, Headache, Increased Appetite , Lethargy, Malaise, Night Sweats, Snoring, Sleep Apnea, Weight Gain, Weight Loss, Weakness, Other - EENT Eyes: absent: As Per HPI, Blind Spots, Blurred Vision, Change in Vision, Decreased Night Vision, Diplopia, Discharge, Dry Eye, Exophthalmos, Floaters, Irritation, Itchy Eyes, Loss of Peripheral Vision, Pain, Photophobia, Requires Corrective Lenses, Sees Flashes, Spots in Vision, Tunnel Vision, Other Visual Disturbances, Loss of Vision, Other Ears: absent: As Per HPI, Decreased Hearing, Ear Discharge, Ear Pain, Tinnitus, Abnormal Hearing, Disequilibrium, Dizziness, Other Nose/Mouth/Throat: absent: As Per HPI, Epistaxis, Nasal Congestion, Nasal Discharge, Nasal Obstruction, Nasal Trauma, Nose Pain, Post Nasal Drip, Sinus Pain, Sinus Pressure, Bleeding Gums, Change in Voice, Dental Pain, Dry Mouth, Dysphagia, Halitosis, Hoarsness, Lip Swelling, Mouth Lesions, Mouth Pain, Odynophagia, Sore Throat, Throat Swelling, Tongue Swelling, Facial Pain, Neck Pain, Neck Mass, Other - Cardiovascular Cardiovascular: Chest Pain - Respiratory Respiratory: absent: As Per HPI, Cough, Dyspnea, Hemoptysis, Dyspnea on Exertion , Wheezing, Snoring, Stridor, Pain on Inspiration, Chest Congestion, Excessive Mucous Production, Change in Mucous Color, Pain with Coughing, Other - Gastrointestinal Gastrointestinal: absent: As Per HPI, Abdominal Pain, Belching, Bloating, Change in Bowel Habits, Change in Stool Character, Coffee Ground Emesis, Constipation, Cramping, Diarrhea, Dyspepsia, Dysphagia, Early Satiety, Excessive Flatus, Fecal Incontinence, Heartburn, Hematemesis, Hematochezia, Loose Stools, Melena, Nausea, Odynophagia, Temesmus, Vomiting, Other - Musculoskeletal Musculoskeletal: absent: As Per HPI, Abnormal Gait, Arthralgias, Atrophy, Back Pain, Deformity, Joint Swelling, Limited Range of Motion, Loss of Height, Muscle Cramps, Muscle Weakness, Myalgias, Neck Pain, Numbness, Radiating Pain into Limb, Stiffness, Tingling, Other - Integumentary Integumentary: absent: As Per HPI, Acne, Alopecia, Bleeding Lesions, Change in Hair, Change in Nails, Change in Pigmentation, Changing Lesions, Dry Skin, Erythema, Furuncle, Hirsutism, Lesions, New Lesions, Non-Healing Lesions, Photosensitivity, Pruritus, Rash, Skin Pain, Skin Ulcer, Sores, Striae, Swelling , Unusual Bruising, Wounds, Jaundice, Other - Neurological Neurological: absent: As Per HPI, Abnormal Gait, Abnormal Hearing, Abnormal Movements, Abnormal Speech, Behavioral Changes, Burning Sensations, Confusion, Convulsions, Disequilibrium, Dizziness, Numbness, Focal Weakness, Frequent Falls , Headaches, Lack of Coordination, Loss of Vision, Memory Loss, Paresthesias, Radicular Pain, Restless Legs, Sensory Deficit, Syncope, Tingling, Tremor, Vertigo, Weakness, Other Visual Disturbances, Other - Psychiatric Psychiatric: absent: As Per HPI, Abnormal Sleep Pattern, Anhedonia, Anxiety, Auditory Hallucinations, Behavioral Changes, Change in Appetite, Change in Libido, Confusion, Depression, Difficulty Concentrating, Hallucinations, Homicidal Ideation, Hopelessness, Irritability, Memory Loss, Mood Swings, Panic Attacks, Paranoia, Suicidal Ideation, Visual Hallucinations, Tactile Hallucinations, Other - Hematologic/Lymphatic Hematologic: absent: As Per HPI, Easy Bleeding, Easy Bruising, Lymphadenopathy, Other Past Patient History - Infectious Disease Hx of Infectious Diseases: None - Past Medical History & Family History Past Medical History?: Yes - Past Social History Smoking Status: Former Smoker - CARDIAC Hx Cardiac Disorders: Yes Hx Cardia Arrhythmia: Yes Hx Hypercholesterolemia: Yes Hx Hypertension: Yes Hx Peripheral Edema: Yes - PULMONARY Hx Respiratory Disorders: Yes Hx Asthma: Yes Hx Sleep Apnea: Yes - NEUROLOGICAL Hx Neurological Disorder: Yes Hx Transient Ischemic Attacks (TIA): Yes - HEENT Hx HEENT Problems: No - RENAL Hx Chronic Kidney Disease: Yes - ENDOCRINE/METABOLIC Hx Endocrine Disorders: Yes Hx Diabetes Mellitus Type 1: Yes - HEMATOLOGICAL/ONCOLOGICAL Hx Blood Disorders: Yes - INTEGUMENTARY Hx Dermatological Problems: Yes Hx Psoriasis: Yes (mild) - MUSCULOSKELETAL/RHEUMATOLOGICAL Hx Musculoskeletal Disorders: Yes Hx Falls: No - GASTROINTESTINAL Hx Gastrointestinal Disorders: Yes Hx Gall Bladder Disease: Yes Hx Gastritis: Yes - GENITOURINARY/GYNECOLOGICAL Hx Genitourinary Disorders: No - PSYCHIATRIC Hx Psychophysiologic Disorder: Yes Hx Anxiety: Yes Hx Depression: Yes Hx Substance Use: No - SURGICAL HISTORY Hx Surgeries: Yes Hx Cholecystectomy: Yes Hx Coronary Artery Bypass Graft: Yes (september 2008 x4) Hx Coronary Stent: Yes (9 stents) - ANESTHESIA Hx Anesthesia: Yes Hx Anesthesia Reactions: No Hx Malignant Hyperthermia: No Has any member of the family had a problem w/ anesthesia?: No Meds Allergies/Adverse Reactions: Allergies Allergy/AdvReac Type Severity Reaction Status Date / Time iodine Allergy Severe URTICARIA Verified 11/25/17 14:33 latex Allergy Severe URTICARIA Verified 11/25/17 14:33 seafood Allergy Severe URTICARIA Uncoded 11/25/17 14:33 - Medications Medications: Current Medications Albuterol/Ipratropium (Duoneb 3 Mg/0.5 Mg (3 Ml) Ud) 3 ml INH RQ6 PRN PRN Reason: Shortness of Breath Aspirin (Aspirin Chewable) 81 mg PO DAILY [facility] Clopidogrel Bisulfate (Plavix) 75 mg PO DAILY [facility] Clopidogrel Bisulfate (Plavix) 75 mg PO DAILY [facility] Docusate Sodium (Colace) 100 mg PO DAILY [facility] Famotidine (Pepcid) 20 mg PO DAILY [facility] Fluoxetine HCl (Prozac) 40 mg PO DAILY [facility] Furosemide (Lasix) 40 mg PO DAILY [facility] Sodium Chloride (Sodium Chloride 0.9%) 1,000 mls @ 125 mls/hr IV .Q8H [facility] Last Admin: 11/26/17 02:30 Dose: 125 mls/hr Heparin Sodium/Sodium Chloride (Heparin 07819 Units/250ml 1/2 Normal Saline) 25 ,000 units in 250 mls @ 15.647 mls/hr IV .[id number] PRN; Protocol; 14 UNITS/KG/HR PRN Reason: ADJUST RATE PER PROTOCOL Last Titration: 11/26/17 07:30 Dose: 0 units/kg/hr, 0 mls/hr Insulin Aspart (Novolog Mix 70/30 (70/30 Units/Ml)) 10 units SC BID [facility] Last Admin: 11/25/17 20:11 Dose: 10 units Insulin Detemir (Levemir) 40 unit SC HS [facility] Insulin Detemir (Levemir) 35 unit SC HS [facility] Insulin Human Isoph/Insulin Regular (Novolin 70/30 (70/30 Units/Ml) 10 Ml) 10 units SC BID [facility] Insulin Human Regular (Novolin R) 0 unit SC ACHS [facility] PRN Reason: Protocol Last Admin: 11/25/17 21:30 Dose: Not Given Lisinopril (Zestril) 2.5 mg PO DAILY [facility] Loratadine (Claritin) 10 mg PO DAILY [facility] Metoprolol Succinate (Toprol Xl) 12.5 mg PO DAILY [facility] Nitroglycerin (Nitrostat Sl Tab) 0.4 mg SL Q5M PRN [id number] Ethyl Esters (Lovaza) 1,000 gm PO BID [facility] Pantoprazole Sodium (Protonix Ec Tab) 40 mg PO DAILY [facility] Ranolazine (Ranexa) 1,000 mg PO BID [facility] Rosuvastatin Calcium (Crestor) 10 mg PO HS [facility] Last Admin: 11/25/17 21:09 Dose: 10 mg Physical Exam - Constitutional Appears: Non-toxic - Head Exam Head Exam: NORMAL INSPECTION - Eye Exam Eye Exam: Normal appearance - ENT Exam ENT Exam: Mucous Membranes Moist - Neck Exam Neck exam: Positive for: Normal Inspection - Respiratory Exam Respiratory Exam: NORMAL BREATHING PATTERN - Cardiovascular Exam Cardiovascular Exam: REGULAR RHYTHM - GI/Abdominal Exam GI & Abdominal Exam: Normal Bowel Sounds - Rectal Exam Rectal Exam: Deferred - Extremities Exam Extremities exam: Positive for: pedal edema - Back Exam Back exam: NORMAL INSPECTION - Neurological Exam Neurological exam: Alert, Oriented x3 - Psychiatric Exam Psychiatric exam: Normal Affect - Skin Skin Exam: Normal Color Results - Vital Signs Recent Vital Signs: Last Vital Signs Temp 97.8 F 11/26/17 00:00 Pulse 63 11/26/17 07:00 Resp 9 L 11/26/17 07:00 BP 131/53 L 11/26/17 06:58 Pulse Ox 100 11/26/17 07:00 - Labs Result Diagrams: 11/26/17 06:12 11/26/17 06:14 Labs: Laboratory Results - last 24 hr 11/25/17 11/25/17 11/25/17 14:28 14:59 14:59 WBC 4.9 RBC 4.28 Hgb 13.7 Hct 40.2 MCV 93.8 MCH 32.1 H MCHC 34.2 RDW 13.9 Plt Count 184 MPV 10.2 Neut % (Auto) 59.2 Lymph % (Auto) 28.0 Kemper % (Auto) 11.6 H Eos % (Auto) 0.6 Baso % (Auto) 0.6 Neut # (Auto) 2.9 Lymph # (Auto) 1.4 Kemper # (Auto) 0.6 Eos # (Auto) 0.0 Baso # (Auto) 0.0 PT 11.8 INR 1.1 APTT 29 pO2 VBG pH VBG pCO2 VBG HCO3 VBG Total CO2 VBG O2 Sat (Calc) VBG Base Excess VBG Potassium Glucose Lactate Sodium Potassium Chloride Carbon Dioxide Anion Gap BUN Creatinine Est GFR ( Amer) Est GFR (Non-Af Amer) POC Glucose (mg/dL) 455 H* Random Glucose Hemoglobin A1c Lactic Acid Calcium Phosphorus Magnesium Total Bilirubin AST ALT Alkaline Phosphatase Total Creatine Kinase CK-MB (Mass) Troponin I NT-Pro-B Natriuret Pep Total Protein Albumin Globulin Albumin/Globulin Ratio Triglycerides Cholesterol LDL Cholesterol Direct HDL Cholesterol Free T4 TSH 3rd Generation Venous Blood Potassium B-Hydroxybutyrate Blood Type Antibody Screen 11/25/17 11/25/17 11/25/17 14:59 15:27 16:22 WBC RBC Hgb Hct MCV MCH MCHC RDW Plt Count MPV Neut % (Auto) Lymph % (Auto) Kemper % (Auto) Eos % (Auto) Baso % (Auto) Neut # (Auto) Lymph # (Auto) Kemper # (Auto) Eos # (Auto) Baso # (Auto) PT INR APTT pO2 31 VBG pH 7.47 H VBG pCO2 33 L VBG HCO3 24.7 VBG Total CO2 25.0 VBG O2 Sat (Calc) 69.7 H VBG Base Excess 0.9 VBG Potassium 3.6 Glucose 407 H* D Lactate 2.3 H Sodium 136 137.0 Potassium 3.9 Chloride 97 L 105.0 Carbon Dioxide 25 Anion Gap 18 BUN 15 Creatinine 1.0 Est GFR ( Amer) > 60 Est GFR (Non-Af Amer) 58 POC Glucose (mg/dL) Random Glucose 446 H* D Hemoglobin A1c Lactic Acid Calcium 9.3 Phosphorus Magnesium Total Bilirubin 0.8 AST 45 H ALT 40 Alkaline Phosphatase 91 Total Creatine Kinase CK-MB (Mass) Troponin I 0.0200 NT-Pro-B Natriuret Pep 260 Total Protein 8.2 Albumin 4.2 Globulin 4.0 H Albumin/Globulin Ratio 1.1 Triglycerides 199 H Cholesterol 275 H LDL Cholesterol Direct 202 H HDL Cholesterol 45 Free T4 TSH 3rd Generation 1.24 Venous Blood Potassium 3.6 B-Hydroxybutyrate 0.09 Blood Type Antibody Screen 11/25/17 11/25/17 11/25/17 16:22 16:22 16:29 WBC RBC Hgb Hct MCV MCH MCHC RDW Plt Count MPV Neut % (Auto) Lymph % (Auto) Kemper % (Auto) Eos % (Auto) Baso % (Auto) Neut # (Auto) Lymph # (Auto) Kemper # (Auto) Eos # (Auto) Baso # (Auto) PT INR APTT pO2 VBG pH VBG pCO2 VBG HCO3 VBG Total CO2 VBG O2 Sat (Calc) VBG Base Excess VBG Potassium Glucose Lactate Sodium Potassium Chloride Carbon Dioxide Anion Gap BUN Creatinine Est GFR ( Amer) Est GFR (Non-Af Amer) POC Glucose (mg/dL) Random Glucose Hemoglobin A1c 10.3 H Lactic Acid Calcium Phosphorus Magnesium Total Bilirubin AST ALT Alkaline Phosphatase Total Creatine Kinase 104 CK-MB (Mass) 1.93 Troponin I 0.0200 NT-Pro-B Natriuret Pep Total Protein Albumin Globulin Albumin/Globulin Ratio Triglycerides Cholesterol LDL Cholesterol Direct HDL Cholesterol Free T4 1.43 TSH 3rd Generation Venous Blood Potassium B-Hydroxybutyrate Blood Type Antibody Screen 11/25/17 11/25/17 11/25/17 16:36 18:19 18:19 WBC RBC Hgb Hct MCV MCH MCHC RDW Plt Count MPV Neut % (Auto) Lymph % (Auto) Kemper % (Auto) Eos % (Auto) Baso % (Auto) Neut # (Auto) Lymph # (Auto) Kemper # (Auto) Eos # (Auto) Baso # (Auto) PT INR APTT pO2 VBG pH VBG pCO2 VBG HCO3 VBG Total CO2 VBG O2 Sat (Calc) VBG Base Excess VBG Potassium Glucose Lactate Sodium Potassium Chloride Carbon Dioxide Anion Gap BUN Creatinine Est GFR ( Amer) Est GFR (Non-Af Amer) POC Glucose (mg/dL) 272 H Random Glucose Hemoglobin A1c Lactic Acid 1.4 Calcium Phosphorus Magnesium Total Bilirubin AST ALT Alkaline Phosphatase Total Creatine Kinase CK-MB (Mass) Troponin I NT-Pro-B Natriuret Pep Total Protein Albumin Globulin Albumin/Globulin Ratio Triglycerides Cholesterol LDL Cholesterol Direct HDL Cholesterol Free T4 TSH 3rd Generation Venous Blood Potassium B-Hydroxybutyrate Blood Type A POSITIVE Antibody Screen Negative 11/25/17 11/25/17 11/25/17 18:32 20:56 21:10 WBC RBC Hgb Hct MCV MCH MCHC RDW Plt Count MPV Neut % (Auto) Lymph % (Auto) Kemper % (Auto) Eos % (Auto) Baso % (Auto) Neut # (Auto) Lymph # (Auto) Kemper # (Auto) Eos # (Auto) Baso # (Auto) PT INR APTT 40 H D pO2 VBG pH VBG pCO2 VBG HCO3 VBG Total CO2 VBG O2 Sat (Calc) VBG Base Excess VBG Potassium Glucose Lactate Sodium Potassium Chloride Carbon Dioxide Anion Gap BUN Creatinine Est GFR ( Amer) Est GFR (Non-Af Amer) POC Glucose (mg/dL) 245 H 219 H Random Glucose Hemoglobin A1c Lactic Acid Calcium Phosphorus Magnesium Total Bilirubin AST ALT Alkaline Phosphatase Total Creatine Kinase CK-MB (Mass) Troponin I NT-Pro-B Natriuret Pep Total Protein Albumin Globulin Albumin/Globulin Ratio Triglycerides Cholesterol LDL Cholesterol Direct HDL Cholesterol Free T4 TSH 3rd Generation Venous Blood Potassium B-Hydroxybutyrate Blood Type Antibody Screen 11/26/17 11/26/17 11/26/17 00:54 06:12 06:12 WBC 4.0 L RBC 3.73 L Hgb 12.2 Hct 35.2 MCV 94.5 MCH 32.8 H MCHC 34.7 RDW 14.0 Plt Count 152 MPV 10.4 Neut % (Auto) 34.1 L Lymph % (Auto) 51.2 H Kemper % (Auto) 12.5 H Eos % (Auto) 1.6 Baso % (Auto) 0.6 Neut # (Auto) 1.4 L Lymph # (Auto) 2.0 Kemper # (Auto) 0.5 Eos # (Auto) 0.1 Baso # (Auto) 0.0 PT INR APTT 185 H* D pO2 VBG pH VBG pCO2 VBG HCO3 VBG Total CO2 VBG O2 Sat (Calc) VBG Base Excess VBG Potassium Glucose Lactate Sodium Potassium Chloride Carbon Dioxide Anion Gap BUN Creatinine Est GFR ( Amer) Est GFR (Non-Af Amer) POC Glucose (mg/dL) Random Glucose Hemoglobin A1c Lactic Acid Calcium Phosphorus Magnesium Total Bilirubin AST ALT Alkaline Phosphatase Total Creatine Kinase 77 CK-MB (Mass) 2.25 Troponin I 0.1700 H* NT-Pro-B Natriuret Pep Total Protein Albumin Globulin Albumin/Globulin Ratio Triglycerides Cholesterol LDL Cholesterol Direct HDL Cholesterol Free T4 TSH 3rd Generation Venous Blood Potassium B-Hydroxybutyrate Blood Type Antibody Screen 11/26/17 11/26/17 06:14 07:23 WBC RBC Hgb Hct MCV MCH MCHC RDW Plt Count MPV Neut % (Auto) Lymph % (Auto) Kemper % (Auto) Eos % (Auto) Baso % (Auto) Neut # (Auto) Lymph # (Auto) Kemper # (Auto) Eos # (Auto) Baso # (Auto) PT INR APTT pO2 VBG pH VBG pCO2 VBG HCO3 VBG Total CO2 VBG O2 Sat (Calc) VBG Base Excess VBG Potassium Glucose Lactate Sodium 138 Potassium 4.1 Chloride 104 Carbon Dioxide 26 Anion Gap 13 BUN 15 Creatinine 0.6 L Est GFR ( Amer) > 60 Est GFR (Non-Af Amer) > 60 POC Glucose (mg/dL) 204 H Random Glucose 182 H Hemoglobin A1c Lactic Acid Calcium 8.3 L Phosphorus 3.5 Magnesium 1.6 Total Bilirubin 1.0 AST 47 H ALT 33 Alkaline Phosphatase 69 Total Creatine Kinase CK-MB (Mass) Troponin I NT-Pro-B Natriuret Pep Total Protein 6.8 Albumin 3.3 L D Globulin 3.5 Albumin/Globulin Ratio 1.0 Triglycerides Cholesterol LDL Cholesterol Direct HDL Cholesterol Free T4 TSH 3rd Generation Venous Blood Potassium B-Hydroxybutyrate Blood Type Antibody Screen - EKG Data EKG Interpreted by: Myself EKG shows normal: Sinus rhythm Assessment & Plan (1) Unstable angina Assessment and Plan: will treat with aggressive medical tehrapy. Patient will likely require cardiac cath and intervention. will need to manage DKA. ASA/statin therapy. can d/c heparin. Status: Acute (2) CAD (coronary artery disease) Assessment and Plan: ASA/Plavix (insurance would not cover Brilinta). Status: Acute (3) Diabetes Assessment and Plan: aggressive medical maangement Status: Acute
[2017-11-26] MEDS: (Novolin R) Insulin Human Regular 100 units/ml vial SC SCH ×4 (08:15→22:25)
--- NOTE | 2017-11-26 09:25 | CP.CCUPN ---
<Jaelyn Masterson - Last Filed: 11/26/17 09:22> CCU Subjective - Physician Review Subjective (Free Text): Patient seen and examined at bedside. Patient denied any chest pain. Patient states she is hungry and wants to eat. CCU Objective - Vital Signs / Intake & Output Vital Signs (Last 4 hours): Vital Signs Pulse Resp BP Pulse Ox 11/26/17 08:18 69 13 138/69 98 11/26/17 07:00 63 9 L 100 11/26/17 06:58 64 16 131/53 L 100 11/26/17 06:00 73 15 98 11/26/17 05:57 72 14 131/75 98 Intake and Output (Last 8hrs): Intake & Output 11/25/17 11/26/17 11/26/17 22:59 06:59 14:59 Intake Total 404.0 1124.8 315.6 Output Total 0 600 0 Balance 404.0 524.8 315.6 Weight 246 lb 6.4 oz 246 lb Intake: IV 50 Intake, IV Amount 404.0 1124.8 265.6 Left Forearm 375 1000 250 Left Proximal Port 29.0 124.8 15.6 Forearm Right Forearm 0 0 Output: Urine 0 600 0 Urine, Voided 0 600 0 Other: Voiding Method Bedside Commode # Voids Urine, Voided 1 - Physical Exam Other physical findings (Free Text): - Constitutional Appears: No Acute Distress - Head Exam Head Exam: NORMAL INSPECTION, NORMOCEPHALIC - Eye Exam Eye Exam: EOMI, Normal appearance, PERRL Pupil Exam: NORMAL ACCOMODATION - ENT Exam ENT Exam: Mucous Membranes Moist - Respiratory Exam Respiratory Exam: Clear to Auscultation Bilateral, NORMAL BREATHING PATTERN - Cardiovascular Exam Cardiovascular Exam: Tachycardia - GI/Abdominal Exam GI & Abdominal Exam: Normal Bowel Sounds, Soft. absent: Distended, Tenderness - Extremities Exam Extremities exam: Positive for: normal inspection, pedal pulses present. Negative for: pedal edema, tenderness - Neurological Exam Neurological exam: Alert, CN II-XII Intact, Oriented x3 - Psychiatric Exam Psychiatric exam: Normal Affect, Normal Mood - Skin Skin Exam: Dry, Intact, Normal Color, Warm - Medications Active Medications: Active Medications Generic Name Dose Route Start Last Admin Trade Name Freq PRN Reason Stop Dose Admin Albuterol/Ipratropium 3 ml 11/25/17 17:30 Duoneb 3 Mg/0.5 Mg (3 Ml) Ud INH RQ6 PRN Shortness of Breath Aspirin 81 mg 11/26/17 10:00 Aspirin Chewable PO DAILY [facility] Clopidogrel Bisulfate 75 mg 11/26/17 10:00 Plavix PO DAILY [facility] Famotidine 20 mg 11/26/17 10:00 Pepcid PO DAILY [facility] Fluoxetine HCl 40 mg 11/26/17 10:00 Prozac PO DAILY [facility] Furosemide 40 mg 11/26/17 10:00 Lasix PO DAILY [facility] Heparin Sodium/Sodium Chloride 25,000 units in 250 mls @ 15.647 mls/hr 21:45 11/26/17 09:02 Heparin 02482 Units/250ml 1/2 Normal Saline IV 11 units/kg/hr .[id number] PRN 12.294 mls/hr ADJUST RATE PER PROTOCOL Titration Protocol 14 UNITS/KG/HR Insulin Aspart 10 units 11/25/17 18:00 11/25/17 20:11 Novolog Mix 70/30 (70/30 Units/Ml) SC 10 units BID NARCISA Administration Insulin Detemir 40 unit 11/26/17 22:00 Levemir SC HS [facility] Insulin Human Regular 0 unit 11/25/17 22:00 11/26/17 08:15 Novolin R SC 2 units ACHS [facility] Administration Protocol Lisinopril 2.5 mg 11/26/17 10:00 Zestril PO DAILY [facility] Metoprolol Succinate 12.5 mg 11/26/17 10:00 Toprol Xl PO DAILY [facility] Nitroglycerin 0.4 mg 11/25/17 19:45 Nitrostat Sl Tab SL Q5M PRN Rosuvastatin Calcium 10 mg 11/25/17 22:00 11/25/17 21:09 Crestor PO 10 mg HS [facility] Administration - Patient Studies Lab Studies: Lab Studies 11/26/17 11/26/17 11/26/17 Range/Units 07:23 06:14 06:12 WBC (4.8-10.8) K/uL RBC (3.80-5.20) Mil/uL Hgb (11.0-16.0) g/dL Hct (34.0-47.0) % MCV (81.0-99.0) fL MCH (27.0-31.0) pg MCHC (33.0-37.0) g/dL RDW (11.5-14.5) % Plt Count (130-400) K/uL MPV (7.2-11.7) fL Neut % (Auto) (50.0-75.0) % Lymph % (Auto) (20.0-40.0) % Grimes % (Auto) (0.0-10.0) % Eos % (Auto) (0.0-4.0) % Baso % (Auto) (0.0-2.0) % Neut # (Auto) (1.8-7.0) K/uL Lymph # (Auto) (1.0-4.3) K/uL Grimes # (Auto) (0.0-0.8) K/uL Eos # (Auto) (0.0-0.7) K/uL Baso # (Auto) (0.0-0.2) K/uL PT (9.7-12.2) SECONDS INR APTT 185 H* D (21-34) SECONDS pO2 (30-55) mm/Hg VBG pH (7.32-7.43) VBG pCO2 (40-60) mmHg VBG HCO3 mmol/L VBG Total CO2 (22-28) mmol/L VBG O2 Sat (Calc) (40-65) % VBG Base Excess (0.0-2.0) mmol/L VBG Potassium (3.6-5.2) mmol/L Glucose (65-105) mg/dl Lactate (0.7-2.1) mmol/L Sodium 138 (132-148) mmol/L Potassium 4.1 (3.6-5.2) mmol/L Chloride 104 (98-107) mmol/L Carbon Dioxide 26 (22-30) mmol/L Anion Gap 13 (10-20) BUN 15 (7-17) mg/dL Creatinine 0.6 L (0.7-1.2) mg/dL Est GFR ( Amer) > 60 Est GFR (Non-Af Amer) > 60 POC Glucose (mg/dL) 204 H (65-110) mg/dL Random Glucose 182 H (65-105) mg/dL Hemoglobin A1c (4.2-6.5) % Lactic Acid (0.7-2.1) mmol/L Calcium 8.3 L (8.6-10.4) mg/dl Phosphorus 3.5 (2.5-4.5) mg/dL Magnesium 1.6 (1.6-2.3) mg/dL Total Bilirubin 1.0 (0.2-1.3) mg/dL AST 47 H (14-36) U/L ALT 33 (9-52) U/L Alkaline Phosphatase 69 (38-126) U/L Total Creatine Kinase (30-135) U/L CK-MB (Mass) (0.0-3.38) ng/mL Troponin I (0.00-0.120) ng/mL NT-Pro-B Natriuret Pep (0-900) pg/mL Total Protein 6.8 (6.3-8.3) g/dL Albumin 3.3 L D (3.5-5.0) g/dL Globulin 3.5 (2.2-3.9) gm/dL Albumin/Globulin Ratio 1.0 (1.0-2.1) Triglycerides (0-149) mg/dL Cholesterol (0-199) mg/dL LDL Cholesterol Direct (0-129) mg/dL HDL Cholesterol (30-70) mg/dL Free T4 (0.78-2.19) ng/dL TSH 3rd Generation (0.46-4.68) mIU/L Venous Blood Potassium (3.6-5.2) mmol/L B-Hydroxybutyrate (0.02-0.27) mM Blood Type Antibody Screen 11/26/17 11/26/17 11/25/17 Range/Units 06:12 00:54 21:10 WBC 4.0 L (4.8-10.8) K/uL RBC 3.73 L (3.80-5.20) Mil/uL Hgb 12.2 (11.0-16.0) g/dL Hct 35.2 (34.0-47.0) % MCV 94.5 (81.0-99.0) fL MCH 32.8 H (27.0-31.0) pg MCHC 34.7 (33.0-37.0) g/dL RDW 14.0 (11.5-14.5) % Plt Count 152 (130-400) K/uL MPV 10.4 (7.2-11.7) fL Neut % (Auto) 34.1 L (50.0-75.0) % Lymph % (Auto) 51.2 H (20.0-40.0) % Grimes % (Auto) 12.5 H (0.0-10.0) % Eos % (Auto) 1.6 (0.0-4.0) % Baso % (Auto) 0.6 (0.0-2.0) % Neut # (Auto) 1.4 L (1.8-7.0) K/uL Lymph # (Auto) 2.0 (1.0-4.3) K/uL Grimes # (Auto) 0.5 (0.0-0.8) K/uL Eos # (Auto) 0.1 (0.0-0.7) K/uL Baso # (Auto) 0.0 (0.0-0.2) K/uL PT (9.7-12.2) SECONDS INR APTT (21-34) SECONDS pO2 (30-55) mm/Hg VBG pH (7.32-7.43) VBG pCO2 (40-60) mmHg VBG HCO3 mmol/L VBG Total CO2 (22-28) mmol/L VBG O2 Sat (Calc) (40-65) % VBG Base Excess (0.0-2.0) mmol/L VBG Potassium (3.6-5.2) mmol/L Glucose (65-105) mg/dl Lactate (0.7-2.1) mmol/L Sodium (132-148) mmol/L Potassium (3.6-5.2) mmol/L Chloride (98-107) mmol/L Carbon Dioxide (22-30) mmol/L Anion Gap (10-20) BUN (7-17) mg/dL Creatinine (0.7-1.2) mg/dL Est GFR ( Amer) Est GFR (Non-Af Amer) POC Glucose (mg/dL) 219 H (65-110) mg/dL Random Glucose (65-105) mg/dL Hemoglobin A1c (4.2-6.5) % Lactic Acid (0.7-2.1) mmol/L Calcium (8.6-10.4) mg/dl Phosphorus (2.5-4.5) mg/dL Magnesium (1.6-2.3) mg/dL Total Bilirubin (0.2-1.3) mg/dL AST (14-36) U/L ALT (9-52) U/L Alkaline Phosphatase (38-126) U/L Total Creatine Kinase 77 (30-135) U/L CK-MB (Mass) 2.25 (0.0-3.38) ng/mL Troponin I 0.1700 H* (0.00-0.120) ng/mL NT-Pro-B Natriuret Pep (0-900) pg/mL Total Protein (6.3-8.3) g/dL Albumin (3.5-5.0) g/dL Globulin (2.2-3.9) gm/dL Albumin/Globulin Ratio (1.0-2.1) Triglycerides (0-149) mg/dL Cholesterol (0-199) mg/dL LDL Cholesterol Direct (0-129) mg/dL HDL Cholesterol (30-70) mg/dL Free T4 (0.78-2.19) ng/dL TSH 3rd Generation (0.46-4.68) mIU/L Venous Blood Potassium (3.6-5.2) mmol/L B-Hydroxybutyrate (0.02-0.27) mM Blood Type Antibody Screen 11/25/17 11/25/17 11/25/17 Range/Units 20:56 18:32 18:19 WBC (4.8-10.8) K/uL RBC (3.80-5.20) Mil/uL Hgb (11.0-16.0) g/dL Hct (34.0-47.0) % MCV (81.0-99.0) fL MCH (27.0-31.0) pg MCHC (33.0-37.0) g/dL RDW (11.5-14.5) % Plt Count (130-400) K/uL MPV (7.2-11.7) fL Neut % (Auto) (50.0-75.0) % Lymph % (Auto) (20.0-40.0) % Grimes % (Auto) (0.0-10.0) % Eos % (Auto) (0.0-4.0) % Baso % (Auto) (0.0-2.0) % Neut # (Auto) (1.8-7.0) K/uL Lymph # (Auto) (1.0-4.3) K/uL Grimes # (Auto) (0.0-0.8) K/uL Eos # (Auto) (0.0-0.7) K/uL Baso # (Auto) (0.0-0.2) K/uL PT (9.7-12.2) SECONDS INR APTT 40 H D (21-34) SECONDS pO2 (30-55) mm/Hg VBG pH (7.32-7.43) VBG pCO2 (40-60) mmHg VBG HCO3 mmol/L VBG Total CO2 (22-28) mmol/L VBG O2 Sat (Calc) (40-65) % VBG Base Excess (0.0-2.0) mmol/L VBG Potassium (3.6-5.2) mmol/L Glucose (65-105) mg/dl Lactate (0.7-2.1) mmol/L Sodium (132-148) mmol/L Potassium (3.6-5.2) mmol/L Chloride (98-107) mmol/L Carbon Dioxide (22-30) mmol/L Anion Gap (10-20) BUN (7-17) mg/dL Creatinine (0.7-1.2) mg/dL Est GFR ( Amer) Est GFR (Non-Af Amer) POC Glucose (mg/dL) 245 H (65-110) mg/dL Random Glucose (65-105) mg/dL Hemoglobin A1c (4.2-6.5) % Lactic Acid (0.7-2.1) mmol/L Calcium (8.6-10.4) mg/dl Phosphorus (2.5-4.5) mg/dL Magnesium (1.6-2.3) mg/dL Total Bilirubin (0.2-1.3) mg/dL AST (14-36) U/L ALT (9-52) U/L Alkaline Phosphatase (38-126) U/L Total Creatine Kinase (30-135) U/L CK-MB (Mass) (0.0-3.38) ng/mL Troponin I (0.00-0.120) ng/mL NT-Pro-B Natriuret Pep (0-900) pg/mL Total Protein (6.3-8.3) g/dL Albumin (3.5-5.0) g/dL Globulin (2.2-3.9) gm/dL Albumin/Globulin Ratio (1.0-2.1) Triglycerides (0-149) mg/dL Cholesterol (0-199) mg/dL LDL Cholesterol Direct (0-129) mg/dL HDL Cholesterol (30-70) mg/dL Free T4 (0.78-2.19) ng/dL TSH 3rd Generation (0.46-4.68) mIU/L Venous Blood Potassium (3.6-5.2) mmol/L B-Hydroxybutyrate (0.02-0.27) mM Blood Type A POSITIVE Antibody Screen Negative 11/25/17 11/25/17 11/25/17 Range/Units 18:19 16:36 16:29 WBC (4.8-10.8) K/uL RBC (3.80-5.20) Mil/uL Hgb (11.0-16.0) g/dL Hct (34.0-47.0) % MCV (81.0-99.0) fL MCH (27.0-31.0) pg MCHC (33.0-37.0) g/dL RDW (11.5-14.5) % Plt Count (130-400) K/uL MPV (7.2-11.7) fL Neut % (Auto) (50.0-75.0) % Lymph % (Auto) (20.0-40.0) % Grimes % (Auto) (0.0-10.0) % Eos % (Auto) (0.0-4.0) % Baso % (Auto) (0.0-2.0) % Neut # (Auto) (1.8-7.0) K/uL Lymph # (Auto) (1.0-4.3) K/uL Grimes # (Auto) (0.0-0.8) K/uL Eos # (Auto) (0.0-0.7) K/uL Baso # (Auto) (0.0-0.2) K/uL PT (9.7-12.2) SECONDS INR APTT (21-34) SECONDS pO2 (30-55) mm/Hg VBG pH (7.32-7.43) VBG pCO2 (40-60) mmHg VBG HCO3 mmol/L VBG Total CO2 (22-28) mmol/L VBG O2 Sat (Calc) (40-65) % VBG Base Excess (0.0-2.0) mmol/L VBG Potassium (3.6-5.2) mmol/L Glucose (65-105) mg/dl Lactate (0.7-2.1) mmol/L Sodium (132-148) mmol/L Potassium (3.6-5.2) mmol/L Chloride (98-107) mmol/L Carbon Dioxide (22-30) mmol/L Anion Gap (10-20) BUN (7-17) mg/dL Creatinine (0.7-1.2) mg/dL Est GFR ( Amer) Est GFR (Non-Af Amer) POC Glucose (mg/dL) 272 H (65-110) mg/dL Random Glucose (65-105) mg/dL Hemoglobin A1c (4.2-6.5) % Lactic Acid 1.4 (0.7-2.1) mmol/L Calcium (8.6-10.4) mg/dl Phosphorus (2.5-4.5) mg/dL Magnesium (1.6-2.3) mg/dL Total Bilirubin (0.2-1.3) mg/dL AST (14-36) U/L ALT (9-52) U/L Alkaline Phosphatase (38-126) U/L Total Creatine Kinase (30-135) U/L CK-MB (Mass) (0.0-3.38) ng/mL Troponin I (0.00-0.120) ng/mL NT-Pro-B Natriuret Pep (0-900) pg/mL Total Protein (6.3-8.3) g/dL Albumin (3.5-5.0) g/dL Globulin (2.2-3.9) gm/dL Albumin/Globulin Ratio (1.0-2.1) Triglycerides (0-149) mg/dL Cholesterol (0-199) mg/dL LDL Cholesterol Direct (0-129) mg/dL HDL Cholesterol (30-70) mg/dL Free T4 1.43 (0.78-2.19) ng/dL TSH 3rd Generation (0.46-4.68) mIU/L Venous Blood Potassium (3.6-5.2) mmol/L B-Hydroxybutyrate (0.02-0.27) mM Blood Type Antibody Screen 11/25/17 11/25/17 11/25/17 Range/Units 16:22 16:22 16:22 WBC (4.8-10.8) K/uL RBC (3.80-5.20) Mil/uL Hgb (11.0-16.0) g/dL Hct (34.0-47.0) % MCV (81.0-99.0) fL MCH (27.0-31.0) pg MCHC (33.0-37.0) g/dL RDW (11.5-14.5) % Plt Count (130-400) K/uL MPV (7.2-11.7) fL Neut % (Auto) (50.0-75.0) % Lymph % (Auto) (20.0-40.0) % Grimes % (Auto) (0.0-10.0) % Eos % (Auto) (0.0-4.0) % Baso % (Auto) (0.0-2.0) % Neut # (Auto) (1.8-7.0) K/uL Lymph # (Auto) (1.0-4.3) K/uL Grimes # (Auto) (0.0-0.8) K/uL Eos # (Auto) (0.0-0.7) K/uL Baso # (Auto) (0.0-0.2) K/uL PT (9.7-12.2) SECONDS INR APTT (21-34) SECONDS pO2 (30-55) mm/Hg VBG pH (7.32-7.43) VBG pCO2 (40-60) mmHg VBG HCO3 mmol/L VBG Total CO2 (22-28) mmol/L VBG O2 Sat (Calc) (40-65) % VBG Base Excess (0.0-2.0) mmol/L VBG Potassium (3.6-5.2) mmol/L Glucose (65-105) mg/dl Lactate (0.7-2.1) mmol/L Sodium (132-148) mmol/L Potassium (3.6-5.2) mmol/L Chloride (98-107) mmol/L Carbon Dioxide (22-30) mmol/L Anion Gap (10-20) BUN (7-17) mg/dL Creatinine (0.7-1.2) mg/dL Est GFR ( Amer) Est GFR (Non-Af Amer) POC Glucose (mg/dL) (65-110) mg/dL Random Glucose (65-105) mg/dL Hemoglobin A1c 10.3 H (4.2-6.5) % Lactic Acid (0.7-2.1) mmol/L Calcium (8.6-10.4) mg/dl Phosphorus (2.5-4.5) mg/dL Magnesium (1.6-2.3) mg/dL Total Bilirubin (0.2-1.3) mg/dL AST (14-36) U/L ALT (9-52) U/L Alkaline Phosphatase (38-126) U/L Total Creatine Kinase 104 (30-135) U/L CK-MB (Mass) 1.93 (0.0-3.38) ng/mL Troponin I 0.0200 (0.00-0.120) ng/mL NT-Pro-B Natriuret Pep (0-900) pg/mL Total Protein (6.3-8.3) g/dL Albumin (3.5-5.0) g/dL Globulin (2.2-3.9) gm/dL Albumin/Globulin Ratio (1.0-2.1) Triglycerides 199 H (0-149) mg/dL Cholesterol 275 H (0-199) mg/dL LDL Cholesterol Direct 202 H (0-129) mg/dL HDL Cholesterol 45 (30-70) mg/dL Free T4 (0.78-2.19) ng/dL TSH 3rd Generation 1.24 (0.46-4.68) mIU/L Venous Blood Potassium (3.6-5.2) mmol/L B-Hydroxybutyrate (0.02-0.27) mM Blood Type Antibody Screen 11/25/17 11/25/17 11/25/17 Range/Units 15:27 14:59 14:59 WBC (4.8-10.8) K/uL RBC (3.80-5.20) Mil/uL Hgb (11.0-16.0) g/dL Hct (34.0-47.0) % MCV (81.0-99.0) fL MCH (27.0-31.0) pg MCHC (33.0-37.0) g/dL RDW (11.5-14.5) % Plt Count (130-400) K/uL MPV (7.2-11.7) fL Neut % (Auto) (50.0-75.0) % Lymph % (Auto) (20.0-40.0) % Grimes % (Auto) (0.0-10.0) % Eos % (Auto) (0.0-4.0) % Baso % (Auto) (0.0-2.0) % Neut # (Auto) (1.8-7.0) K/uL Lymph # (Auto) (1.0-4.3) K/uL Grimes # (Auto) (0.0-0.8) K/uL Eos # (Auto) (0.0-0.7) K/uL Baso # (Auto) (0.0-0.2) K/uL PT 11.8 (9.7-12.2) SECONDS INR 1.1 APTT 29 (21-34) SECONDS pO2 31 (30-55) mm/Hg VBG pH 7.47 H (7.32-7.43) VBG pCO2 33 L (40-60) mmHg VBG HCO3 24.7 mmol/L VBG Total CO2 25.0 (22-28) mmol/L VBG O2 Sat (Calc) 69.7 H (40-65) % VBG Base Excess 0.9 (0.0-2.0) mmol/L VBG Potassium 3.6 (3.6-5.2) mmol/L Glucose 407 H* D (65-105) mg/dl Lactate 2.3 H (0.7-2.1) mmol/L Sodium 137.0 136 (132-148) mmol/L Potassium 3.9 (3.6-5.2) mmol/L Chloride 105.0 97 L (98-107) mmol/L Carbon Dioxide 25 (22-30) mmol/L Anion Gap 18 (10-20) BUN 15 (7-17) mg/dL Creatinine 1.0 (0.7-1.2) mg/dL Est GFR ( Amer) > 60 Est GFR (Non-Af Amer) 58 POC Glucose (mg/dL) (65-110) mg/dL Random Glucose 446 H* D (65-105) mg/dL Hemoglobin A1c (4.2-6.5) % Lactic Acid (0.7-2.1) mmol/L Calcium 9.3 (8.6-10.4) mg/dl Phosphorus (2.5-4.5) mg/dL Magnesium (1.6-2.3) mg/dL Total Bilirubin 0.8 (0.2-1.3) mg/dL AST 45 H (14-36) U/L ALT 40 (9-52) U/L Alkaline Phosphatase 91 (38-126) U/L Total Creatine Kinase (30-135) U/L CK-MB (Mass) (0.0-3.38) ng/mL Troponin I 0.0200 (0.00-0.120) ng/mL NT-Pro-B Natriuret Pep 260 (0-900) pg/mL Total Protein 8.2 (6.3-8.3) g/dL Albumin 4.2 (3.5-5.0) g/dL Globulin 4.0 H (2.2-3.9) gm/dL Albumin/Globulin Ratio 1.1 (1.0-2.1) Triglycerides (0-149) mg/dL Cholesterol (0-199) mg/dL LDL Cholesterol Direct (0-129) mg/dL HDL Cholesterol (30-70) mg/dL Free T4 (0.78-2.19) ng/dL TSH 3rd Generation (0.46-4.68) mIU/L Venous Blood Potassium 3.6 (3.6-5.2) mmol/L B-Hydroxybutyrate 0.09 (0.02-0.27) mM Blood Type Antibody Screen 11/25/17 11/25/17 Range/Units 14:59 14:28 WBC 4.9 (4.8-10.8) K/uL RBC 4.28 (3.80-5.20) Mil/uL Hgb 13.7 (11.0-16.0) g/dL Hct 40.2 (34.0-47.0) % MCV 93.8 (81.0-99.0) fL MCH 32.1 H (27.0-31.0) pg MCHC 34.2 (33.0-37.0) g/dL RDW 13.9 (11.5-14.5) % Plt Count 184 (130-400) K/uL MPV 10.2 (7.2-11.7) fL Neut % (Auto) 59.2 (50.0-75.0) % Lymph % (Auto) 28.0 (20.0-40.0) % Grimes % (Auto) 11.6 H (0.0-10.0) % Eos % (Auto) 0.6 (0.0-4.0) % Baso % (Auto) 0.6 (0.0-2.0) % Neut # (Auto) 2.9 (1.8-7.0) K/uL Lymph # (Auto) 1.4 (1.0-4.3) K/uL Grimes # (Auto) 0.6 (0.0-0.8) K/uL Eos # (Auto) 0.0 (0.0-0.7) K/uL Baso # (Auto) 0.0 (0.0-0.2) K/uL PT (9.7-12.2) SECONDS INR APTT (21-34) SECONDS pO2 (30-55) mm/Hg VBG pH (7.32-7.43) VBG pCO2 (40-60) mmHg VBG HCO3 mmol/L VBG Total CO2 (22-28) mmol/L VBG O2 Sat (Calc) (40-65) % VBG Base Excess (0.0-2.0) mmol/L VBG Potassium (3.6-5.2) mmol/L Glucose (65-105) mg/dl Lactate (0.7-2.1) mmol/L Sodium (132-148) mmol/L Potassium (3.6-5.2) mmol/L Chloride (98-107) mmol/L Carbon Dioxide (22-30) mmol/L Anion Gap (10-20) BUN (7-17) mg/dL Creatinine (0.7-1.2) mg/dL Est GFR ( Amer) Est GFR (Non-Af Amer) POC Glucose (mg/dL) 455 H* (65-110) mg/dL Random Glucose (65-105) mg/dL Hemoglobin A1c (4.2-6.5) % Lactic Acid (0.7-2.1) mmol/L Calcium (8.6-10.4) mg/dl Phosphorus (2.5-4.5) mg/dL Magnesium (1.6-2.3) mg/dL Total Bilirubin (0.2-1.3) mg/dL AST (14-36) U/L ALT (9-52) U/L Alkaline Phosphatase (38-126) U/L Total Creatine Kinase (30-135) U/L CK-MB (Mass) (0.0-3.38) ng/mL Troponin I (0.00-0.120) ng/mL NT-Pro-B Natriuret Pep (0-900) pg/mL Total Protein (6.3-8.3) g/dL Albumin (3.5-5.0) g/dL Globulin (2.2-3.9) gm/dL Albumin/Globulin Ratio (1.0-2.1) Triglycerides (0-149) mg/dL Cholesterol (0-199) mg/dL LDL Cholesterol Direct (0-129) mg/dL HDL Cholesterol (30-70) mg/dL Free T4 (0.78-2.19) ng/dL TSH 3rd Generation (0.46-4.68) mIU/L Venous Blood Potassium (3.6-5.2) mmol/L B-Hydroxybutyrate (0.02-0.27) mM Blood Type Antibody Screen Laboratory Results - last 24 hr 11/25/17 11/25/17 11/25/17 14:28 14:59 14:59 WBC 4.9 RBC 4.28 Hgb 13.7 Hct 40.2 MCV 93.8 MCH 32.1 H MCHC 34.2 RDW 13.9 Plt Count 184 MPV 10.2 Neut % (Auto) 59.2 Lymph % (Auto) 28.0 Grimes % (Auto) 11.6 H Eos % (Auto) 0.6 Baso % (Auto) 0.6 Neut # (Auto) 2.9 Lymph # (Auto) 1.4 Grimes # (Auto) 0.6 Eos # (Auto) 0.0 Baso # (Auto) 0.0 PT 11.8 INR 1.1 APTT 29 pO2 VBG pH VBG pCO2 VBG HCO3 VBG Total CO2 VBG O2 Sat (Calc) VBG Base Excess VBG Potassium Glucose Lactate Sodium Potassium Chloride Carbon Dioxide Anion Gap BUN Creatinine Est GFR ( Amer) Est GFR (Non-Af Amer) POC Glucose (mg/dL) 455 H* Random Glucose Hemoglobin A1c Lactic Acid Calcium Phosphorus Magnesium Total Bilirubin AST ALT Alkaline Phosphatase Total Creatine Kinase CK-MB (Mass) Troponin I NT-Pro-B Natriuret Pep Total Protein Albumin Globulin Albumin/Globulin Ratio Triglycerides Cholesterol LDL Cholesterol Direct HDL Cholesterol Free T4 TSH 3rd Generation Venous Blood Potassium B-Hydroxybutyrate Blood Type Antibody Screen 11/25/17 11/25/17 11/25/17 14:59 15:27 16:22 WBC RBC Hgb Hct MCV MCH MCHC RDW Plt Count MPV Neut % (Auto) Lymph % (Auto) Grimes % (Auto) Eos % (Auto) Baso % (Auto) Neut # (Auto) Lymph # (Auto) Grimes # (Auto) Eos # (Auto) Baso # (Auto) PT INR APTT pO2 31 VBG pH 7.47 H VBG pCO2 33 L VBG HCO3 24.7 VBG Total CO2 25.0 VBG O2 Sat (Calc) 69.7 H VBG Base Excess 0.9 VBG Potassium 3.6 Glucose 407 H* D Lactate 2.3 H Sodium 136 137.0 Potassium 3.9 Chloride 97 L 105.0 Carbon Dioxide 25 Anion Gap 18 BUN 15 Creatinine 1.0 Est GFR ( Amer) > 60 Est GFR (Non-Af Amer) 58 POC Glucose (mg/dL) Random Glucose 446 H* D Hemoglobin A1c Lactic Acid Calcium 9.3 Phosphorus Magnesium Total Bilirubin 0.8 AST 45 H ALT 40 Alkaline Phosphatase 91 Total Creatine Kinase CK-MB (Mass) Troponin I 0.0200 NT-Pro-B Natriuret Pep 260 Total Protein 8.2 Albumin 4.2 Globulin 4.0 H Albumin/Globulin Ratio 1.1 Triglycerides 199 H Cholesterol 275 H LDL Cholesterol Direct 202 H HDL Cholesterol 45 Free T4 TSH 3rd Generation 1.24 Venous Blood Potassium 3.6 B-Hydroxybutyrate 0.09 Blood Type Antibody Screen 0611/25/17 11/25/17 16:22 16:22 16:29 WBC RBC Hgb Hct MCV MCH MCHC RDW Plt Count MPV Neut % (Auto) Lymph % (Auto) Grimes % (Auto) Eos % (Auto) Baso % (Auto) Neut # (Auto) Lymph # (Auto) Grimes # (Auto) Eos # (Auto) Baso # (Auto) PT INR APTT pO2 VBG pH VBG pCO2 VBG HCO3 VBG Total CO2 VBG O2 Sat (Calc) VBG Base Excess VBG Potassium Glucose Lactate Sodium Potassium Chloride Carbon Dioxide Anion Gap BUN Creatinine Est GFR ( Amer) Est GFR (Non-Af Amer) POC Glucose (mg/dL) Random Glucose Hemoglobin A1c 10.3 H Lactic Acid Calcium Phosphorus Magnesium Total Bilirubin AST ALT Alkaline Phosphatase Total Creatine Kinase 104 CK-MB (Mass) 1.93 Troponin I 0.0200 NT-Pro-B Natriuret Pep Total Protein Albumin Globulin Albumin/Globulin Ratio Triglycerides Cholesterol LDL Cholesterol Direct HDL Cholesterol Free T4 1.43 TSH 3rd Generation Venous Blood Potassium B-Hydroxybutyrate Blood Type Antibody Screen 11/25/17 11/25/17 11/25/17 16:36 18:19 18:19 WBC RBC Hgb Hct MCV MCH MCHC RDW Plt Count MPV Neut % (Auto) Lymph % (Auto) Grimes % (Auto) Eos % (Auto) Baso % (Auto) Neut # (Auto) Lymph # (Auto) Grimes # (Auto) Eos # (Auto) Baso # (Auto) PT INR APTT pO2 VBG pH VBG pCO2 VBG HCO3 VBG Total CO2 VBG O2 Sat (Calc) VBG Base Excess VBG Potassium Glucose Lactate Sodium Potassium Chloride Carbon Dioxide Anion Gap BUN Creatinine Est GFR ( Amer) Est GFR (Non-Af Amer) POC Glucose (mg/dL) 272 H Random Glucose Hemoglobin A1c Lactic Acid 1.4 Calcium Phosphorus Magnesium Total Bilirubin AST ALT Alkaline Phosphatase Total Creatine Kinase CK-MB (Mass) Troponin I NT-Pro-B Natriuret Pep Total Protein Albumin Globulin Albumin/Globulin Ratio Triglycerides Cholesterol LDL Cholesterol Direct HDL Cholesterol Free T4 TSH 3rd Generation Venous Blood Potassium B-Hydroxybutyrate Blood Type A POSITIVE Antibody Screen Negative 11/25/17 11/25/17 11/25/17 18:32 20:56 21:10 WBC RBC Hgb Hct MCV MCH MCHC RDW Plt Count MPV Neut % (Auto) Lymph % (Auto) Grimes % (Auto) Eos % (Auto) Baso % (Auto) Neut # (Auto) Lymph # (Auto) Grimes # (Auto) Eos # (Auto) Baso # (Auto) PT INR APTT 40 H D pO2 VBG pH VBG pCO2 VBG HCO3 VBG Total CO2 VBG O2 Sat (Calc) VBG Base Excess VBG Potassium Glucose Lactate Sodium Potassium Chloride Carbon Dioxide Anion Gap BUN Creatinine Est GFR ( Amer) Est GFR (Non-Af Amer) POC Glucose (mg/dL) 245 H 219 H Random Glucose Hemoglobin A1c Lactic Acid Calcium Phosphorus Magnesium Total Bilirubin AST ALT Alkaline Phosphatase Total Creatine Kinase CK-MB (Mass) Troponin I NT-Pro-B Natriuret Pep Total Protein Albumin Globulin Albumin/Globulin Ratio Triglycerides Cholesterol LDL Cholesterol Direct HDL Cholesterol Free T4 TSH 3rd Generation Venous Blood Potassium B-Hydroxybutyrate Blood Type Antibody Screen 11/26/17 11/26/17 11/26/17 00:54 06:12 06:12 WBC 4.0 L RBC 3.73 L Hgb 12.2 Hct 35.2 MCV 94.5 MCH 32.8 H MCHC 34.7 RDW 14.0 Plt Count 152 MPV 10.4 Neut % (Auto) 34.1 L Lymph % (Auto) 51.2 H Grimes % (Auto) 12.5 H Eos % (Auto) 1.6 Baso % (Auto) 0.6 Neut # (Auto) 1.4 L Lymph # (Auto) 2.0 Grimes # (Auto) 0.5 Eos # (Auto) 0.1 Baso # (Auto) 0.0 PT INR APTT 185 H* D pO2 VBG pH VBG pCO2 VBG HCO3 VBG Total CO2 VBG O2 Sat (Calc) VBG Base Excess VBG Potassium Glucose Lactate Sodium Potassium Chloride Carbon Dioxide Anion Gap BUN Creatinine Est GFR ( Amer) Est GFR (Non-Af Amer) POC Glucose (mg/dL) Random Glucose Hemoglobin A1c Lactic Acid Calcium Phosphorus Magnesium Total Bilirubin AST ALT Alkaline Phosphatase Total Creatine Kinase 77 CK-MB (Mass) 2.25 Troponin I 0.1700 H* NT-Pro-B Natriuret Pep Total Protein Albumin Globulin Albumin/Globulin Ratio Triglycerides Cholesterol LDL Cholesterol Direct HDL Cholesterol Free T4 TSH 3rd Generation Venous Blood Potassium B-Hydroxybutyrate Blood Type Antibody Screen 11/26/17 11/26/17 06:14 07:23 WBC RBC Hgb Hct MCV MCH MCHC RDW Plt Count MPV Neut % (Auto) Lymph % (Auto) Grimes % (Auto) Eos % (Auto) Baso % (Auto) Neut # (Auto) Lymph # (Auto) Grimes # (Auto) Eos # (Auto) Baso # (Auto) PT INR APTT pO2 VBG pH VBG pCO2 VBG HCO3 VBG Total CO2 VBG O2 Sat (Calc) VBG Base Excess VBG Potassium Glucose Lactate Sodium 138 Potassium 4.1 Chloride 104 Carbon Dioxide 26 Anion Gap 13 BUN 15 Creatinine 0.6 L Est GFR ( Amer) > 60 Est GFR (Non-Af Amer) > 60 POC Glucose (mg/dL) 204 H Random Glucose 182 H Hemoglobin A1c Lactic Acid Calcium 8.3 L Phosphorus 3.5 Magnesium 1.6 Total Bilirubin 1.0 AST 47 H ALT 33 Alkaline Phosphatase 69 Total Creatine Kinase CK-MB (Mass) Troponin I NT-Pro-B Natriuret Pep Total Protein 6.8 Albumin 3.3 L D Globulin 3.5 Albumin/Globulin Ratio 1.0 Triglycerides Cholesterol LDL Cholesterol Direct HDL Cholesterol Free T4 TSH 3rd Generation Venous Blood Potassium B-Hydroxybutyrate Blood Type Antibody Screen EKG/Cardiology Studies: Cardiology / EKG Studies 11/25/17 13:58 ELECTROCARDIOGRAM Stat Comment: Mode Of Transportation: BED Reason For Exam: chest pain 11/25/17 14:37 ELECTROCARDIOGRAM Stat Comment: Mode Of Transportation: BED Reason For Exam: chest pain 11/25/17 15:51 ELECTROCARDIOGRAM Stat Comment: Mode Of Transportation: BED Reason For Exam: repeat 11/25/17 23:00 EKG [ELECTROCARDIOGRAM] Q8H Comment: Mode Of Transportation: Reason For Exam: chest pain 11/26/17 07:00 EKG [ELECTROCARDIOGRAM] Q8H Comment: Mode Of Transportation: Reason For Exam: chest pain Fingerstick Blood Sugar Results: 204 Critical Care Progress Note - Nutrition Nutrition: Nutrition Category Date Time Status Consistent Carbohydrate [DIET] Diets 11/26/17 Breakfast Active Assessment/Plan - Assessment and Plan (Free Text) Assessment: This is a 52 year old female with PMHx of CAD with CABG x 4 vessels in 2008, with recent stent placement in [place] 09/2017, Left Carotid Stenosis 60-70%, HTN, HF with preservedEF (LVEF50%), ESPERANZA, Asthma, T2DM- uncontrolled with A1C 10.3, Hx CVA, Anxiety admitted to ICU for Unstable Angina with DKA, metabolic acidosis with anion gap 14- which has now resolved. Plan: Neuro: AAOX3 GCS 15 A: Hx CVA - Started Crestor Cardio: A: Unstable Angina - Patient evaluated by Dr. Clay on 11/04/17: Stress test showed: "Evidence of lateral and apical ischemia. The patient has small vessel disease of the obtuse marginals which likely accounts for the ischemia. These lesions are too small for intervention. Patient needs Ranexa 1000mg BID. This will prevent angina and reduce her hospitalizations". - ECHO (11/05/17): EF 50%, LV fxn normal. No AR, MR, TR, PVR. - Troponins negative x 2 - EKG: initial in ED had NEW DEPRESSIONS I, V4-6 COMPARED 11/03/2017, repeat after nitro had resolved ST depressions, NSR @ 87 BPM - Pending cardiac cath - Started on ASA, Plavix, heparin drip A: CAD - s/p CABG x4 in 2008 - 10/23/17: Carotid duplex - R side clear. L side 60-70% stenosis of the L proximal internal carotid. - s/p stent of the circumflex several wks ago. A: Diastolic HFpEF - I/O, daily weights, Fluid restriction - ECHO (11/05/17): EF 50%, LV fxn normal. No AR, MR, TR, PVR. - Pending repeat ECHO: - BNP - 260 A: Carotid Stenosis - 10/27: Head/Neck CTA 10/27- 1. Significant stenosis of left carotid bifurcation/ proximal left internal carotid artery estimated at approximately 60-70%. 2. There are calcified plaque changes also seen within both cavernous carotid and the distal vertebral arteries with the significant stenosis of the right cavernous carotid and left vertebral artery. See full report. 10/26: Carotid duplex - R side clear. L side 60-70% stenosis of the L proximal internal carotid. see full report. Patient for CT angio tomorrow morning at 8am. Patient has a seafood allergy. Per Dr. Stauffer's recommendation, patient will be following protocol for allergy - Prednisone 50mg PO at 13hrs, 6hrs, and 1hr before contrast. Benadryl 50mg PO 1hr before contrast. Patient will followup with Dr. Stauffer to have MRI/MRA performed as outpatient. 10/25: MRI not performed because pt had cardiac stent placed several wks ago. A: HTN - Patient was controlled prior without medications - Started on Lisinopril 2.5 mg PO (renal protection), Metoprolol 12.5 daily Pulm: A: Asthma - Duonebs PRN - Claritin 10mg A: ESPERANZA - CPAP at night Endo: A: Uncontrolled T2DM - Last A1c (10/29/17): 11.2 --> 11/25/17 10.3 - Accuchecks - Anion gap 14 --> resolved, lactate 2.3 --> 1.4 - Resume home regimen: Levemir 40 units HS, Novolin 70/30 10 units BID, ISS- low - Started Crestor 10mg, Lisinopril 2.5 mg PO, Metoprolol 12.5 daily - Carb consistent Diet Psych: A: Anxiety - Continue Prozac Prophylaxis - Protonix - SCDs, Heparin drip - Patient has Iodine allergy - will need to premedicate prior to any contrast Disposition: PATIENT IS TRANSFERRED TO TELEMETRY. DW Dr. Perry Mcelroy, Jaelyn Masterson DO, PGY-1 <Shannon Mcelroy - Last Filed: 11/26/17 13:42> CCU Objective - Vital Signs / Intake & Output Vital Signs (Last 4 hours): Vital Signs Temp Pulse Resp BP Pulse Ox 11/26/17 12:19 68 20 150/67 99 11/26/17 12:00 97.3 F L 11/26/17 11:14 70 14 132/42 L 96 11/26/17 10:58 70 11 L 129/45 L 97 11/26/17 10:29 145/75 11/26/17 09:57 73 19 149/75 Intake and Output (Last 8hrs): Intake & Output 11/25/17 11/26/17 11/26/17 22:59 06:59 14:59 Intake Total 404.0 1124.8 749.5 Output Total 0 600 0 Balance 404.0 524.8 749.5 Weight 246 lb 6.4 oz 246 lb Intake: IV 50 Intake, IV Amount 404.0 1124.8 299.5 Left Forearm 375 1000 250 Left Proximal Port 29.0 124.8 49.5 Forearm Right Forearm 0 0 Oral 400 Output: Urine 0 600 0 Urine, Voided 0 600 0 Other: Voiding Method Bedside Commode # Voids Urine, Voided 1 - Medications Active Medications: Active Medications Generic Name Dose Route Start Last Admin Trade Name Freq PRN Reason Stop Dose Admin Albuterol/Ipratropium 3 ml 11/25/17 17:30 Duoneb 3 Mg/0.5 Mg (3 Ml) Ud INH RQ6 PRN Shortness of Breath Aspirin 81 mg 11/26/17 10:00 11/26/17 10:29 Aspirin Chewable PO 81 mg DAILY NARCISA Administration Clopidogrel Bisulfate 75 mg 11/26/17 10:00 11/26/17 10:29 Plavix PO 75 mg DAILY NARCISA Administration Famotidine 20 mg 11/26/17 10:00 11/26/17 10:29 Pepcid PO 20 mg DAILY NARCISA Administration Fluoxetine HCl 40 mg 11/26/17 10:00 11/26/17 10:29 Prozac PO 40 mg DAILY NARCISA Administration Furosemide 40 mg 11/26/17 10:00 11/26/17 10:29 Lasix PO 40 mg DAILY NARCISA Administration Insulin Aspart 10 units 11/25/17 18:00 11/26/17 10:42 Novolog Mix 70/30 (70/30 Units/Ml) SC 10 units BID NARCISA Administration Insulin Detemir 40 unit 11/26/17 22:00 Levemir SC HS NARCISA Insulin Human Regular 0 unit 11/25/17 22:00 11/26/17 12:34 Novolin R SC 4 units ACHS NARCISA Administration Protocol Lisinopril 2.5 mg 11/26/17 10:00 11/26/17 10:30 Zestril PO 2.5 mg DAILY NARCISA Administration Metoprolol Succinate 12.5 mg 11/26/17 10:00 11/26/17 10:30 Toprol Xl PO 12.5 mg DAILY NARCISA Administration Nitroglycerin 0.4 mg 11/25/17 19:45 Nitrostat Sl Tab SL Q5M PRN Rosuvastatin Calcium 10 mg 11/25/17 22:00 11/25/17 21:09 Crestor PO 10 mg HS NARCISA Administration - Patient Studies Lab Studies: Lab Studies 11/26/17 11/26/17 11/26/17 Range/Units 12:23 07:23 06:14 WBC (4.8-10.8) K/uL RBC (3.80-5.20) Mil/uL Hgb (11.0-16.0) g/dL Hct (34.0-47.0) % MCV (81.0-99.0) fL MCH (27.0-31.0) pg MCHC (33.0-37.0) g/dL RDW (11.5-14.5) % Plt Count (130-400) K/uL MPV (7.2-11.7) fL Neut % (Auto) (50.0-75.0) % Lymph % (Auto) (20.0-40.0) % Grimes % (Auto) (0.0-10.0) % Eos % (Auto) (0.0-4.0) % Baso % (Auto) (0.0-2.0) % Neut # (Auto) (1.8-7.0) K/uL Lymph # (Auto) (1.0-4.3) K/uL Grimes # (Auto) (0.0-0.8) K/uL Eos # (Auto) (0.0-0.7) K/uL Baso # (Auto) (0.0-0.2) K/uL PT (9.7-12.2) SECONDS INR APTT (21-34) SECONDS pO2 (30-55) mm/Hg VBG pH (7.32-7.43) VBG pCO2 (40-60) mmHg VBG HCO3 mmol/L VBG Total CO2 (22-28) mmol/L VBG O2 Sat (Calc) (40-65) % VBG Base Excess (0.0-2.0) mmol/L VBG Potassium (3.6-5.2) mmol/L Glucose (65-105) mg/dl Lactate (0.7-2.1) mmol/L Sodium 138 (132-148) mmol/L Potassium 4.1 (3.6-5.2) mmol/L Chloride 104 (98-107) mmol/L Carbon Dioxide 26 (22-30) mmol/L Anion Gap 13 (10-20) BUN 15 (7-17) mg/dL Creatinine 0.6 L (0.7-1.2) mg/dL Est GFR ( Amer) > 60 Est GFR (Non-Af Amer) > 60 POC Glucose (mg/dL) 303 H 204 H (65-110) mg/dL Random Glucose 182 H (65-105) mg/dL Hemoglobin A1c (4.2-6.5) % Lactic Acid (0.7-2.1) mmol/L Calcium 8.3 L (8.6-10.4) mg/dl Phosphorus 3.5 (2.5-4.5) mg/dL Magnesium 1.6 (1.6-2.3) mg/dL Total Bilirubin 1.0 (0.2-1.3) mg/dL AST 47 H (14-36) U/L ALT 33 (9-52) U/L Alkaline Phosphatase 69 (38-126) U/L Total Creatine Kinase (30-135) U/L CK-MB (Mass) (0.0-3.38) ng/mL Troponin I (0.00-0.120) ng/mL NT-Pro-B Natriuret Pep (0-900) pg/mL Total Protein 6.8 (6.3-8.3) g/dL Albumin 3.3 L D (3.5-5.0) g/dL Globulin 3.5 (2.2-3.9) gm/dL Albumin/Globulin Ratio 1.0 (1.0-2.1) Triglycerides (0-149) mg/dL Cholesterol (0-199) mg/dL LDL Cholesterol Direct (0-129) mg/dL HDL Cholesterol (30-70) mg/dL Free T4 (0.78-2.19) ng/dL TSH 3rd Generation (0.46-4.68) mIU/L Venous Blood Potassium (3.6-5.2) mmol/L B-Hydroxybutyrate (0.02-0.27) mM Blood Type Antibody Screen 11/26/17 11/26/17 11/26/17 Range/Units 06:12 06:12 00:54 WBC 4.0 L (4.8-10.8) K/uL RBC 3.73 L (3.80-5.20) Mil/uL Hgb 12.2 (11.0-16.0) g/dL Hct 35.2 (34.0-47.0) % MCV 94.5 (81.0-99.0) fL MCH 32.8 H (27.0-31.0) pg MCHC 34.7 (33.0-37.0) g/dL RDW 14.0 (11.5-14.5) % Plt Count 152 (130-400) K/uL MPV 10.4 (7.2-11.7) fL Neut % (Auto) 34.1 L (50.0-75.0) % Lymph % (Auto) 51.2 H (20.0-40.0) % Grimes % (Auto) 12.5 H (0.0-10.0) % Eos % (Auto) 1.6 (0.0-4.0) % Baso % (Auto) 0.6 (0.0-2.0) % Neut # (Auto) 1.4 L (1.8-7.0) K/uL Lymph # (Auto) 2.0 (1.0-4.3) K/uL Grimes # (Auto) 0.5 (0.0-0.8) K/uL Eos # (Auto) 0.1 (0.0-0.7) K/uL Baso # (Auto) 0.0 (0.0-0.2) K/uL PT (9.7-12.2) SECONDS INR APTT 185 H* D (21-34) SECONDS pO2 (30-55) mm/Hg VBG pH (7.32-7.43) VBG pCO2 (40-60) mmHg VBG HCO3 mmol/L VBG Total CO2 (22-28) mmol/L VBG O2 Sat (Calc) (40-65) % VBG Base Excess (0.0-2.0) mmol/L VBG Potassium (3.6-5.2) mmol/L Glucose (65-105) mg/dl Lactate (0.7-2.1) mmol/L Sodium (132-148) mmol/L Potassium (3.6-5.2) mmol/L Chloride (98-107) mmol/L Carbon Dioxide (22-30) mmol/L Anion Gap (10-20) BUN (7-17) mg/dL Creatinine (0.7-1.2) mg/dL Est GFR ( Amer) Est GFR (Non-Af Amer) POC Glucose (mg/dL) (65-110) mg/dL Random Glucose (65-105) mg/dL Hemoglobin A1c (4.2-6.5) % Lactic Acid (0.7-2.1) mmol/L Calcium (8.6-10.4) mg/dl Phosphorus (2.5-4.5) mg/dL Magnesium (1.6-2.3) mg/dL Total Bilirubin (0.2-1.3) mg/dL AST (14-36) U/L ALT (9-52) U/L Alkaline Phosphatase (38-126) U/L Total Creatine Kinase 77 (30-135) U/L CK-MB (Mass) 2.25 (0.0-3.38) ng/mL Troponin I 0.1700 H* (0.00-0.120) ng/mL NT-Pro-B Natriuret Pep (0-900) pg/mL Total Protein (6.3-8.3) g/dL Albumin (3.5-5.0) g/dL Globulin (2.2-3.9) gm/dL Albumin/Globulin Ratio (1.0-2.1) Triglycerides (0-149) mg/dL Cholesterol (0-199) mg/dL LDL Cholesterol Direct (0-129) mg/dL HDL Cholesterol (30-70) mg/dL Free T4 (0.78-2.19) ng/dL TSH 3rd Generation (0.46-4.68) mIU/L Venous Blood Potassium (3.6-5.2) mmol/L B-Hydroxybutyrate (0.02-0.27) mM Blood Type Antibody Screen 11/25/17 11/25/17 11/25/17 Range/Units 21:10 20:56 18:32 WBC (4.8-10.8) K/uL RBC (3.80-5.20) Mil/uL Hgb (11.0-16.0) g/dL Hct (34.0-47.0) % MCV (81.0-99.0) fL MCH (27.0-31.0) pg MCHC (33.0-37.0) g/dL RDW (11.5-14.5) % Plt Count (130-400) K/uL MPV (7.2-11.7) fL Neut % (Auto) (50.0-75.0) % Lymph % (Auto) (20.0-40.0) % Grimes % (Auto) (0.0-10.0) % Eos % (Auto) (0.0-4.0) % Baso % (Auto) (0.0-2.0) % Neut # (Auto) (1.8-7.0) K/uL Lymph # (Auto) (1.0-4.3) K/uL Grimes # (Auto) (0.0-0.8) K/uL Eos # (Auto) (0.0-0.7) K/uL Baso # (Auto) (0.0-0.2) K/uL PT (9.7-12.2) SECONDS INR APTT 40 H D (21-34) SECONDS pO2 (30-55) mm/Hg VBG pH (7.32-7.43) VBG pCO2 (40-60) mmHg VBG HCO3 mmol/L VBG Total CO2 (22-28) mmol/L VBG O2 Sat (Calc) (40-65) % VBG Base Excess (0.0-2.0) mmol/L VBG Potassium (3.6-5.2) mmol/L Glucose (65-105) mg/dl Lactate (0.7-2.1) mmol/L Sodium (132-148) mmol/L Potassium (3.6-5.2) mmol/L Chloride (98-107) mmol/L Carbon Dioxide (22-30) mmol/L Anion Gap (10-20) BUN (7-17) mg/dL Creatinine (0.7-1.2) mg/dL Est GFR ( Amer) Est GFR (Non-Af Amer) POC Glucose (mg/dL) 219 H 245 H (65-110) mg/dL Random Glucose (65-105) mg/dL Hemoglobin A1c (4.2-6.5) % Lactic Acid (0.7-2.1) mmol/L Calcium (8.6-10.4) mg/dl Phosphorus (2.5-4.5) mg/dL Magnesium (1.6-2.3) mg/dL Total Bilirubin (0.2-1.3) mg/dL AST (14-36) U/L ALT (9-52) U/L Alkaline Phosphatase (38-126) U/L Total Creatine Kinase (30-135) U/L CK-MB (Mass) (0.0-3.38) ng/mL Troponin I (0.00-0.120) ng/mL NT-Pro-B Natriuret Pep (0-900) pg/mL Total Protein (6.3-8.3) g/dL Albumin (3.5-5.0) g/dL Globulin (2.2-3.9) gm/dL Albumin/Globulin Ratio (1.0-2.1) Triglycerides (0-149) mg/dL Cholesterol (0-199) mg/dL LDL Cholesterol Direct (0-129) mg/dL HDL Cholesterol (30-70) mg/dL Free T4 (0.78-2.19) ng/dL TSH 3rd Generation (0.46-4.68) mIU/L Venous Blood Potassium (3.6-5.2) mmol/L B-Hydroxybutyrate (0.02-0.27) mM Blood Type Antibody Screen 11/25/17 11/25/17 11/25/17 Range/Units 18:19 18:19 16:36 WBC (4.8-10.8) K/uL RBC (3.80-5.20) Mil/uL Hgb (11.0-16.0) g/dL Hct (34.0-47.0) % MCV (81.0-99.0) fL MCH (27.0-31.0) pg MCHC (33.0-37.0) g/dL RDW (11.5-14.5) % Plt Count (130-400) K/uL MPV (7.2-11.7) fL Neut % (Auto) (50.0-75.0) % Lymph % (Auto) (20.0-40.0) % Grimes % (Auto) (0.0-10.0) % Eos % (Auto) (0.0-4.0) % Baso % (Auto) (0.0-2.0) % Neut # (Auto) (1.8-7.0) K/uL Lymph # (Auto) (1.0-4.3) K/uL Grimes # (Auto) (0.0-0.8) K/uL Eos # (Auto) (0.0-0.7) K/uL Baso # (Auto) (0.0-0.2) K/uL PT (9.7-12.2) SECONDS INR APTT (21-34) SECONDS pO2 (30-55) mm/Hg VBG pH (7.32-7.43) VBG pCO2 (40-60) mmHg VBG HCO3 mmol/L VBG Total CO2 (22-28) mmol/L VBG O2 Sat (Calc) (40-65) % VBG Base Excess (0.0-2.0) mmol/L VBG Potassium (3.6-5.2) mmol/L Glucose (65-105) mg/dl Lactate (0.7-2.1) mmol/L Sodium (132-148) mmol/L Potassium (3.6-5.2) mmol/L Chloride (98-107) mmol/L Carbon Dioxide (22-30) mmol/L Anion Gap (10-20) BUN (7-17) mg/dL Creatinine (0.7-1.2) mg/dL Est GFR ( Amer) Est GFR (Non-Af Amer) POC Glucose (mg/dL) 272 H (65-110) mg/dL Random Glucose (65-105) mg/dL Hemoglobin A1c (4.2-6.5) % Lactic Acid 1.4 (0.7-2.1) mmol/L Calcium (8.6-10.4) mg/dl Phosphorus (2.5-4.5) mg/dL Magnesium (1.6-2.3) mg/dL Total Bilirubin (0.2-1.3) mg/dL AST (14-36) U/L ALT (9-52) U/L Alkaline Phosphatase (38-126) U/L Total Creatine Kinase (30-135) U/L CK-MB (Mass) (0.0-3.38) ng/mL Troponin I (0.00-0.120) ng/mL NT-Pro-B Natriuret Pep (0-900) pg/mL Total Protein (6.3-8.3) g/dL Albumin (3.5-5.0) g/dL Globulin (2.2-3.9) gm/dL Albumin/Globulin Ratio (1.0-2.1) Triglycerides (0-149) mg/dL Cholesterol (0-199) mg/dL LDL Cholesterol Direct (0-129) mg/dL HDL Cholesterol (30-70) mg/dL Free T4 (0.78-2.19) ng/dL TSH 3rd Generation (0.46-4.68) mIU/L Venous Blood Potassium (3.6-5.2) mmol/L B-Hydroxybutyrate (0.02-0.27) mM Blood Type A POSITIVE Antibody Screen Negative 11/25/17 11/25/17 11/25/17 Range/Units 16:29 16:22 16:22 WBC (4.8-10.8) K/uL RBC (3.80-5.20) Mil/uL Hgb (11.0-16.0) g/dL Hct (34.0-47.0) % MCV (81.0-99.0) fL MCH (27.0-31.0) pg MCHC (33.0-37.0) g/dL RDW (11.5-14.5) % Plt Count (130-400) K/uL MPV (7.2-11.7) fL Neut % (Auto) (50.0-75.0) % Lymph % (Auto) (20.0-40.0) % Grimes % (Auto) (0.0-10.0) % Eos % (Auto) (0.0-4.0) % Baso % (Auto) (0.0-2.0) % Neut # (Auto) (1.8-7.0) K/uL Lymph # (Auto) (1.0-4.3) K/uL Grimes # (Auto) (0.0-0.8) K/uL Eos # (Auto) (0.0-0.7) K/uL Baso # (Auto) (0.0-0.2) K/uL PT (9.7-12.2) SECONDS INR APTT (21-34) SECONDS pO2 (30-55) mm/Hg VBG pH (7.32-7.43) VBG pCO2 (40-60) mmHg VBG HCO3 mmol/L VBG Total CO2 (22-28) mmol/L VBG O2 Sat (Calc) (40-65) % VBG Base Excess (0.0-2.0) mmol/L VBG Potassium (3.6-5.2) mmol/L Glucose (65-105) mg/dl Lactate (0.7-2.1) mmol/L Sodium (132-148) mmol/L Potassium (3.6-5.2) mmol/L Chloride (98-107) mmol/L Carbon Dioxide (22-30) mmol/L Anion Gap (10-20) BUN (7-17) mg/dL Creatinine (0.7-1.2) mg/dL Est GFR ( Amer) Est GFR (Non-Af Amer) POC Glucose (mg/dL) (65-110) mg/dL Random Glucose (65-105) mg/dL Hemoglobin A1c 10.3 H (4.2-6.5) % Lactic Acid (0.7-2.1) mmol/L Calcium (8.6-10.4) mg/dl Phosphorus (2.5-4.5) mg/dL Magnesium (1.6-2.3) mg/dL Total Bilirubin (0.2-1.3) mg/dL AST (14-36) U/L ALT (9-52) U/L Alkaline Phosphatase (38-126) U/L Total Creatine Kinase 104 (30-135) U/L CK-MB (Mass) 1.93 (0.0-3.38) ng/mL Troponin I 0.0200 (0.00-0.120) ng/mL NT-Pro-B Natriuret Pep (0-900) pg/mL Total Protein (6.3-8.3) g/dL Albumin (3.5-5.0) g/dL Globulin (2.2-3.9) gm/dL Albumin/Globulin Ratio (1.0-2.1) Triglycerides (0-149) mg/dL Cholesterol (0-199) mg/dL LDL Cholesterol Direct (0-129) mg/dL HDL Cholesterol (30-70) mg/dL Free T4 1.43 (0.78-2.19) ng/dL TSH 3rd Generation (0.46-4.68) mIU/L Venous Blood Potassium (3.6-5.2) mmol/L B-Hydroxybutyrate (0.02-0.27) mM Blood Type Antibody Screen 11/25/17 11/25/17 11/25/17 Range/Units 16:22 15:27 14:59 WBC (4.8-10.8) K/uL RBC (3.80-5.20) Mil/uL Hgb (11.0-16.0) g/dL Hct (34.0-47.0) % MCV (81.0-99.0) fL MCH (27.0-31.0) pg MCHC (33.0-37.0) g/dL RDW (11.5-14.5) % Plt Count (130-400) K/uL MPV (7.2-11.7) fL Neut % (Auto) (50.0-75.0) % Lymph % (Auto) (20.0-40.0) % Grimes % (Auto) (0.0-10.0) % Eos % (Auto) (0.0-4.0) % Baso % (Auto) (0.0-2.0) % Neut # (Auto) (1.8-7.0) K/uL Lymph # (Auto) (1.0-4.3) K/uL Grimes # (Auto) (0.0-0.8) K/uL Eos # (Auto) (0.0-0.7) K/uL Baso # (Auto) (0.0-0.2) K/uL PT (9.7-12.2) SECONDS INR APTT (21-34) SECONDS pO2 31 (30-55) mm/Hg VBG pH 7.47 H (7.32-7.43) VBG pCO2 33 L (40-60) mmHg VBG HCO3 24.7 mmol/L VBG Total CO2 25.0 (22-28) mmol/L VBG O2 Sat (Calc) 69.7 H (40-65) % VBG Base Excess 0.9 (0.0-2.0) mmol/L VBG Potassium 3.6 (3.6-5.2) mmol/L Glucose 407 H* D (65-105) mg/dl Lactate 2.3 H (0.7-2.1) mmol/L Sodium 137.0 136 (132-148) mmol/L Potassium 3.9 (3.6-5.2) mmol/L Chloride 105.0 97 L (98-107) mmol/L Carbon Dioxide 25 (22-30) mmol/L Anion Gap 18 (10-20) BUN 15 (7-17) mg/dL Creatinine 1.0 (0.7-1.2) mg/dL Est GFR ( Amer) > 60 Est GFR (Non-Af Amer) 58 POC Glucose (mg/dL) (65-110) mg/dL Random Glucose 446 H* D (65-105) mg/dL Hemoglobin A1c (4.2-6.5) % Lactic Acid (0.7-2.1) mmol/L Calcium 9.3 (8.6-10.4) mg/dl Phosphorus (2.5-4.5) mg/dL Magnesium (1.6-2.3) mg/dL Total Bilirubin 0.8 (0.2-1.3) mg/dL AST 45 H (14-36) U/L ALT 40 (9-52) U/L Alkaline Phosphatase 91 (38-126) U/L Total Creatine Kinase (30-135) U/L CK-MB (Mass) (0.0-3.38) ng/mL Troponin I 0.0200 (0.00-0.120) ng/mL NT-Pro-B Natriuret Pep 260 (0-900) pg/mL Total Protein 8.2 (6.3-8.3) g/dL Albumin 4.2 (3.5-5.0) g/dL Globulin 4.0 H (2.2-3.9) gm/dL Albumin/Globulin Ratio 1.1 (1.0-2.1) Triglycerides 199 H (0-149) mg/dL Cholesterol 275 H (0-199) mg/dL LDL Cholesterol Direct 202 H (0-129) mg/dL HDL Cholesterol 45 (30-70) mg/dL Free T4 (0.78-2.19) ng/dL TSH 3rd Generation 1.24 (0.46-4.68) mIU/L Venous Blood Potassium 3.6 (3.6-5.2) mmol/L B-Hydroxybutyrate 0.09 (0.02-0.27) mM Blood Type Antibody Screen 11/25/17 11/25/17 11/25/17 Range/Units 14:59 14:59 14:28 WBC 4.9 (4.8-10.8) K/uL RBC 4.28 (3.80-5.20) Mil/uL Hgb 13.7 (11.0-16.0) g/dL Hct 40.2 (34.0-47.0) % MCV 93.8 (81.0-99.0) fL MCH 32.1 H (27.0-31.0) pg MCHC 34.2 (33.0-37.0) g/dL RDW 13.9 (11.5-14.5) % Plt Count 184 (130-400) K/uL MPV 10.2 (7.2-11.7) fL Neut % (Auto) 59.2 (50.0-75.0) % Lymph % (Auto) 28.0 (20.0-40.0) % Grimes % (Auto) 11.6 H (0.0-10.0) % Eos % (Auto) 0.6 (0.0-4.0) % Baso % (Auto) 0.6 (0.0-2.0) % Neut # (Auto) 2.9 (1.8-7.0) K/uL Lymph # (Auto) 1.4 (1.0-4.3) K/uL Grimes # (Auto) 0.6 (0.0-0.8) K/uL Eos # (Auto) 0.0 (0.0-0.7) K/uL Baso # (Auto) 0.0 (0.0-0.2) K/uL PT 11.8 (9.7-12.2) SECONDS INR 1.1 APTT 29 (21-34) SECONDS pO2 (30-55) mm/Hg VBG pH (7.32-7.43) VBG pCO2 (40-60) mmHg VBG HCO3 mmol/L VBG Total CO2 (22-28) mmol/L VBG O2 Sat (Calc) (40-65) % VBG Base Excess (0.0-2.0) mmol/L VBG Potassium (3.6-5.2) mmol/L Glucose (65-105) mg/dl Lactate (0.7-2.1) mmol/L Sodium (132-148) mmol/L Potassium (3.6-5.2) mmol/L Chloride (98-107) mmol/L Carbon Dioxide (22-30) mmol/L Anion Gap (10-20) BUN (7-17) mg/dL Creatinine (0.7-1.2) mg/dL Est GFR ( Amer) Est GFR (Non-Af Amer) POC Glucose (mg/dL) 455 H* (65-110) mg/dL Random Glucose (65-105) mg/dL Hemoglobin A1c (4.2-6.5) % Lactic Acid (0.7-2.1) mmol/L Calcium (8.6-10.4) mg/dl Phosphorus (2.5-4.5) mg/dL Magnesium (1.6-2.3) mg/dL Total Bilirubin (0.2-1.3) mg/dL AST (14-36) U/L ALT (9-52) U/L Alkaline Phosphatase (38-126) U/L Total Creatine Kinase (30-135) U/L CK-MB (Mass) (0.0-3.38) ng/mL Troponin I (0.00-0.120) ng/mL NT-Pro-B Natriuret Pep (0-900) pg/mL Total Protein (6.3-8.3) g/dL Albumin (3.5-5.0) g/dL Globulin (2.2-3.9) gm/dL Albumin/Globulin Ratio (1.0-2.1) Triglycerides (0-149) mg/dL Cholesterol (0-199) mg/dL LDL Cholesterol Direct (0-129) mg/dL HDL Cholesterol (30-70) mg/dL Free T4 (0.78-2.19) ng/dL TSH 3rd Generation (0.46-4.68) mIU/L Venous Blood Potassium (3.6-5.2) mmol/L B-Hydroxybutyrate (0.02-0.27) mM Blood Type Antibody Screen Laboratory Results - last 24 hr 11/25/17 11/25/17 11/25/17 14:28 14:59 14:59 WBC 4.9 RBC 4.28 Hgb 13.7 Hct 40.2 MCV 93.8 MCH 32.1 H MCHC 34.2 RDW 13.9 Plt Count 184 MPV 10.2 Neut % (Auto) 59.2 Lymph % (Auto) 28.0 Grimes % (Auto) 11.6 H Eos % (Auto) 0.6 Baso % (Auto) 0.6 Neut # (Auto) 2.9 Lymph # (Auto) 1.4 Grimes # (Auto) 0.6 Eos # (Auto) 0.0 Baso # (Auto) 0.0 PT 11.8 INR 1.1 APTT 29 pO2 VBG pH VBG pCO2 VBG HCO3 VBG Total CO2 VBG O2 Sat (Calc) VBG Base Excess VBG Potassium Glucose Lactate Sodium Potassium Chloride Carbon Dioxide Anion Gap BUN Creatinine Est GFR ( Amer) Est GFR (Non-Af Amer) POC Glucose (mg/dL) 455 H* Random Glucose Hemoglobin A1c Lactic Acid Calcium Phosphorus Magnesium Total Bilirubin AST ALT Alkaline Phosphatase Total Creatine Kinase CK-MB (Mass) Troponin I NT-Pro-B Natriuret Pep Total Protein Albumin Globulin Albumin/Globulin Ratio Triglycerides Cholesterol LDL Cholesterol Direct HDL Cholesterol Free T4 TSH 3rd Generation Venous Blood Potassium B-Hydroxybutyrate Blood Type Antibody Screen 11/25/17 11/25/17 11/25/17 14:59 15:27 16:22 WBC RBC Hgb Hct MCV MCH MCHC RDW Plt Count MPV Neut % (Auto) Lymph % (Auto) Grimes % (Auto) Eos % (Auto) Baso % (Auto) Neut # (Auto) Lymph # (Auto) Grimes # (Auto) Eos # (Auto) Baso # (Auto) PT INR APTT pO2 31 VBG pH 7.47 H VBG pCO2 33 L VBG HCO3 24.7 VBG Total CO2 25.0 VBG O2 Sat (Calc) 69.7 H VBG Base Excess 0.9 VBG Potassium 3.6 Glucose 407 H* D Lactate 2.3 H Sodium 136 137.0 Potassium 3.9 Chloride 97 L 105.0 Carbon Dioxide 25 Anion Gap 18 BUN 15 Creatinine 1.0 Est GFR ( Amer) > 60 Est GFR (Non-Af Amer) 58 POC Glucose (mg/dL) Random Glucose 446 H* D Hemoglobin A1c Lactic Acid Calcium 9.3 Phosphorus Magnesium Total Bilirubin 0.8 AST 45 H ALT 40 Alkaline Phosphatase 91 Total Creatine Kinase CK-MB (Mass) Troponin I 0.0200 NT-Pro-B Natriuret Pep 260 Total Protein 8.2 Albumin 4.2 Globulin 4.0 H Albumin/Globulin Ratio 1.1 Triglycerides 199 H Cholesterol 275 H LDL Cholesterol Direct 202 H HDL Cholesterol 45 Free T4 TSH 3rd Generation 1.24 Venous Blood Potassium 3.6 B-Hydroxybutyrate 0.09 Blood Type Antibody Screen 11/25/17 11/25/17 11/25/17 16:22 16:22 16:29 WBC RBC Hgb Hct MCV MCH MCHC RDW Plt Count MPV Neut % (Auto) Lymph % (Auto) Grimes % (Auto) Eos % (Auto) Baso % (Auto) Neut # (Auto) Lymph # (Auto) Grimes # (Auto) Eos # (Auto) Baso # (Auto) PT INR APTT pO2 VBG pH VBG pCO2 VBG HCO3 VBG Total CO2 VBG O2 Sat (Calc) VBG Base Excess VBG Potassium Glucose Lactate Sodium Potassium Chloride Carbon Dioxide Anion Gap BUN Creatinine Est GFR ( Amer) Est GFR (Non-Af Amer) POC Glucose (mg/dL) Random Glucose Hemoglobin A1c 10.3 H Lactic Acid Calcium Phosphorus Magnesium Total Bilirubin AST ALT Alkaline Phosphatase Total Creatine Kinase 104 CK-MB (Mass) 1.93 Troponin I 0.0200 NT-Pro-B Natriuret Pep Total Protein Albumin Globulin Albumin/Globulin Ratio Triglycerides Cholesterol LDL Cholesterol Direct HDL Cholesterol Free T4 1.43 TSH 3rd Generation Venous Blood Potassium B-Hydroxybutyrate Blood Type Antibody Screen 11/25/17 11/25/17 11/25/17 16:36 18:19 18:19 WBC RBC Hgb Hct MCV MCH MCHC RDW Plt Count MPV Neut % (Auto) Lymph % (Auto) Grimes % (Auto) Eos % (Auto) Baso % (Auto) Neut # (Auto) Lymph # (Auto) Grimes # (Auto) Eos # (Auto) Baso # (Auto) PT INR APTT pO2 VBG pH VBG pCO2 VBG HCO3 VBG Total CO2 VBG O2 Sat (Calc) VBG Base Excess VBG Potassium Glucose Lactate Sodium Potassium Chloride Carbon Dioxide Anion Gap BUN Creatinine Est GFR ( Amer) Est GFR (Non-Af Amer) POC Glucose (mg/dL) 272 H Random Glucose Hemoglobin A1c Lactic Acid 1.4 Calcium Phosphorus Magnesium Total Bilirubin AST ALT Alkaline Phosphatase Total Creatine Kinase CK-MB (Mass) Troponin I NT-Pro-B Natriuret Pep Total Protein Albumin Globulin Albumin/Globulin Ratio Triglycerides Cholesterol LDL Cholesterol Direct HDL Cholesterol Free T4 TSH 3rd Generation Venous Blood Potassium B-Hydroxybutyrate Blood Type A POSITIVE Antibody Screen Negative 11/25/17 11/25/17 11/25/17 18:32 20:56 21:10 WBC RBC Hgb Hct MCV MCH MCHC RDW Plt Count MPV Neut % (Auto) Lymph % (Auto) Grimes % (Auto) Eos % (Auto) Baso % (Auto) Neut # (Auto) Lymph # (Auto) Grimes # (Auto) Eos # (Auto) Baso # (Auto) PT INR APTT 40 H D pO2 VBG pH VBG pCO2 VBG HCO3 VBG Total CO2 VBG O2 Sat (Calc) VBG Base Excess VBG Potassium Glucose Lactate Sodium Potassium Chloride Carbon Dioxide Anion Gap BUN Creatinine Est GFR ( Amer) Est GFR (Non-Af Amer) POC Glucose (mg/dL) 245 H 219 H Random Glucose Hemoglobin A1c Lactic Acid Calcium Phosphorus Magnesium Total Bilirubin AST ALT Alkaline Phosphatase Total Creatine Kinase CK-MB (Mass) Troponin I NT-Pro-B Natriuret Pep Total Protein Albumin Globulin Albumin/Globulin Ratio Triglycerides Cholesterol LDL Cholesterol Direct HDL Cholesterol Free T4 TSH 3rd Generation Venous Blood Potassium B-Hydroxybutyrate Blood Type Antibody Screen 11/26/17 11/26/17 11/26/17 00:54 06:12 06:12 WBC 4.0 L RBC 3.73 L Hgb 12.2 Hct 35.2 MCV 94.5 MCH 32.8 H MCHC 34.7 RDW 14.0 Plt Count 152 MPV 10.4 Neut % (Auto) 34.1 L Lymph % (Auto) 51.2 H Grimes % (Auto) 12.5 H Eos % (Auto) 1.6 Baso % (Auto) 0.6 Neut # (Auto) 1.4 L Lymph # (Auto) 2.0 Grimes # (Auto) 0.5 Eos # (Auto) 0.1 Baso # (Auto) 0.0 PT INR APTT 185 H* D pO2 VBG pH VBG pCO2 VBG HCO3 VBG Total CO2 VBG O2 Sat (Calc) VBG Base Excess VBG Potassium Glucose Lactate Sodium Potassium Chloride Carbon Dioxide Anion Gap BUN Creatinine Est GFR ( Amer) Est GFR (Non-Af Amer) POC Glucose (mg/dL) Random Glucose Hemoglobin A1c Lactic Acid Calcium Phosphorus Magnesium Total Bilirubin AST ALT Alkaline Phosphatase Total Creatine Kinase 77 CK-MB (Mass) 2.25 Troponin I 0.1700 H* NT-Pro-B Natriuret Pep Total Protein Albumin Globulin Albumin/Globulin Ratio Triglycerides Cholesterol LDL Cholesterol Direct HDL Cholesterol Free T4 TSH 3rd Generation Venous Blood Potassium B-Hydroxybutyrate Blood Type Antibody Screen 11/26/17 11/26/17 11/26/17 06:14 07:23 12:23 WBC RBC Hgb Hct MCV MCH MCHC RDW Plt Count MPV Neut % (Auto) Lymph % (Auto) Grimes % (Auto) Eos % (Auto) Baso % (Auto) Neut # (Auto) Lymph # (Auto) Grimes # (Auto) Eos # (Auto) Baso # (Auto) PT INR APTT pO2 VBG pH VBG pCO2 VBG HCO3 VBG Total CO2 VBG O2 Sat (Calc) VBG Base Excess VBG Potassium Glucose Lactate Sodium 138 Potassium 4.1 Chloride 104 Carbon Dioxide 26 Anion Gap 13 BUN 15 Creatinine 0.6 L Est GFR ( Amer) > 60 Est GFR (Non-Af Amer) > 60 POC Glucose (mg/dL) 204 H 303 H Random Glucose 182 H Hemoglobin A1c Lactic Acid Calcium 8.3 L Phosphorus 3.5 Magnesium 1.6 Total Bilirubin 1.0 AST 47 H ALT 33 Alkaline Phosphatase 69 Total Creatine Kinase CK-MB (Mass) Troponin I NT-Pro-B Natriuret Pep Total Protein 6.8 Albumin 3.3 L D Globulin 3.5 Albumin/Globulin Ratio 1.0 Triglycerides Cholesterol LDL Cholesterol Direct HDL Cholesterol Free T4 TSH 3rd Generation Venous Blood Potassium B-Hydroxybutyrate Blood Type Antibody Screen EKG/Cardiology Studies: Cardiology / EKG Studies 11/25/17 13:58 ELECTROCARDIOGRAM Stat Comment: Mode Of Transportation: BED Reason For Exam: chest pain 11/25/17 14:37 ELECTROCARDIOGRAM Stat Comment: Mode Of Transportation: BED Reason For Exam: chest pain 11/25/17 15:51 ELECTROCARDIOGRAM Stat Comment: Mode Of Transportation: BED Reason For Exam: repeat 11/25/17 23:00 EKG [ELECTROCARDIOGRAM] Q8H Comment: Mode Of Transportation: Reason For Exam: chest pain 11/26/17 07:00 EKG [ELECTROCARDIOGRAM] Q8H Comment: Mode Of Transportation: Reason For Exam: chest pain Critical Care Progress Note - Nutrition Nutrition: Nutrition Category Date Time Status Consistent Carbohydrate [DIET] Diets 11/26/17 Breakfast Active Assessment/Plan - Assessment and Plan (Free Text) Plan: Above patient seen and examined at bedside. PAtient is chest pain free. -restart home medications -patient remains hemodynmically stable -continue rx as per organ installer. - Date & Time Date: 11/26/17 Time: 13:42
[2017-11-26] MEDS ORDERED: Omega-3-Acid Ethyl Esters 1 GM Cap PO SCH (10:00)
[2017-11-26] MEDS ORDERED: Pantoprazole 40 mg EC Tab PO SCH (10:00)
[2017-11-26] MEDS ORDERED: (Novolin 70/30) NPH/Regular 70/30 Units/ml 10 ml vial SC SCH (10:00)
[2017-11-26] MEDS ORDERED: Ranolazine 500 mg Extended Release Tablets PO SCH (10:00)
[2017-11-26] MEDS: Metoprolol Succinate 12.5 mg XL Tab PO SCH (10:30)
[2017-11-26] MEDS: (Novolog Mix 70/30) Insulin Aspart/Insulin Aspar 100 units/ml SC SCH ×2 (10:42→17:06)
--- NOTE | 2017-11-26 19:42 | CP.PCM.PN ---
Subjective - Date & Time of Evaluation Date of Evaluation: 11/26/17 Time of Evaluation: 11:40 - Subjective Subjective: clinically same Dr Clay and Crit care following Objective - Vital Signs/Intake and Output Vital Signs (last 24 hours): Temp Pulse Resp BP Pulse Ox 98.3 F 73 16 126/63 98 11/26/17 16:00 11/26/17 18:00 11/26/17 16:00 11/26/17 16:00 11/26/17 16:00 Intake and Output: 11/26/17 11/27/17 18:59 06:59 Intake Total 1549.5 Output Total 0 Balance 1549.5 - Medications Medications: Current Medications Albuterol/Ipratropium (Duoneb 3 Mg/0.5 Mg (3 Ml) Ud) 3 ml INH RQ6 PRN PRN Reason: Shortness of Breath Aspirin (Aspirin Chewable) 81 mg PO DAILY [facility] Last Admin: 11/26/17 10:29 Dose: 81 mg Clopidogrel Bisulfate (Plavix) 75 mg PO DAILY [facility] Last Admin: 11/26/17 10:29 Dose: 75 mg Famotidine (Pepcid) 20 mg PO DAILY [facility] Last Admin: 11/26/17 10:29 Dose: 20 mg Fluoxetine HCl (Prozac) 40 mg PO DAILY [facility] Last Admin: 11/26/17 10:29 Dose: 40 mg Furosemide (Lasix) 40 mg PO DAILY [facility] Last Admin: 11/26/17 10:29 Dose: 40 mg Gabapentin (Neurontin) 300 mg PO BID [facility] Last Admin: 11/26/17 17:05 Dose: 300 mg Insulin Aspart (Novolog Mix 70/30 (70/30 Units/Ml)) 10 units SC BID [facility] Last Admin: 11/26/17 17:06 Dose: 10 units Insulin Detemir (Levemir) 40 unit SC HS [facility] Insulin Human Regular (Novolin R) 0 unit SC [facility] PRN Reason: Protocol Last Admin: 11/26/17 16:56 Dose: 2 units Lisinopril (Zestril) 2.5 mg PO DAILY [facility] Last Admin: 11/26/17 10:30 Dose: 2.5 mg Metoprolol Succinate (Toprol Xl) 12.5 mg PO DAILY [facility] Last Admin: 11/26/17 10:30 Dose: 12.5 mg Nitroglycerin (Nitrostat Sl Tab) 0.4 mg SL Q5M PRN Last Admin: 11/26/17 15:03 Dose: 0.4 mg Rosuvastatin Calcium (Crestor) 10 mg PO HS [facility] Last Admin: 11/25/17 21:09 Dose: 10 mg - Labs Labs: 11/26/17 06:12 11/26/17 06:14 PT 11.8 SECONDS (9.7-12.2) 11/25/17 14:59 INR 1.1 11/25/17 14:59 APTT 185 SECONDS (21-34) H* D 11/26/17 06:12 - Constitutional Appears: Well - Head Exam Head Exam: ATRAUMATIC, NORMAL INSPECTION, NORMOCEPHALIC - Eye Exam Eye Exam: EOMI, Normal appearance, PERRL Pupil Exam: NORMAL ACCOMODATION, PERRL - ENT Exam ENT Exam: Mucous Membranes Moist, Normal Exam - Neck Exam Neck Exam: Full ROM, Normal Inspection. absent: Lymphadenopathy - Respiratory Exam Respiratory Exam: Decreased Breath Sounds - Cardiovascular Exam Cardiovascular Exam: REGULAR RHYTHM, +S1, +S2 - GI/Abdominal Exam GI & Abdominal Exam: Soft, Diminished Bowel Sounds - Rectal Exam Rectal Exam: Deferred - Neurological Exam Neurological Exam: Alert, Awake, Oriented x3 Assessment and Plan (1) Unstable angina Status: Acute (2) Abdominal pain Status: Acute (3) Abrasion of face Status: Acute (4) Acute chest pain Status: Acute (5) Acute coronary syndrome Status: Acute (6) Allergic urticaria Status: Acute (7) Anemia Status: Acute (8) Angina at rest Status: Acute (9) Anxiety Status: Acute (10) Arthritis Status: Acute (11) Asthma Status: Acute (12) CAD (coronary artery disease) Status: Acute (13) CHF (congestive heart failure) Status: Acute (14) CHF exacerbation Status: Acute (15) Chest pain Status: Acute (16) Chest pain Status: Acute (17) Cholelithiasis without obstruction Status: Acute (18) Conjunctivitis Status: Acute (19) Diabetes Status: Acute (20) Dizziness Status: Acute (21) Dizziness Status: Acute (22) Dyspnea Status: Acute (23) Dyspnea Status: Acute (24) Elevated LFTs Status: Acute (25) Elevated liver enzymes Status: Acute (26) Elevated troponin Status: Acute (27) Gastroenteritis Status: Acute (28) Generalized edema Status: Acute (29) HTN (hypertension) Status: Acute (30) Headache Status: Acute (31) Hematuria Status: Acute (32) Hypercholesteremia Status: Acute (33) Hyperkalemia Status: Acute (34) Hyperlipemia Status: Acute (35) Knee pain Status: Acute (36) Lip numbness Status: Acute (37) NSTEMI (non-ST elevated myocardial infarction) Status: Acute (38) ESPERANZA (obstructive sleep apnea) Status: Acute (39) Odynophagia Status: Acute (40) Osteoarthritis Status: Acute (41) PFO (patent foramen ovale) Status: Acute (42) Paresthesia Status: Acute (43) Personal history of coronary artery disease Status: Acute (44) Precordial pain Status: Acute (45) Prophylactic measure Status: Acute (46) Psychiatric disorder Status: Acute (47) Shoulder strain Status: Acute (48) TIA (transient ischemic attack) Status: Acute (49) UTI (urinary tract infection) Status: Acute (50) Vaginal candidiasis Status: Acute (51) Wound infection Status: Acute (52) Wrist injury Status: Acute (53) Diabetes type 2, uncontrolled Status: Chronic (54) Status post coronary angioplasty Status: Chronic - Assessment and Plan (Free Text) Plan: cardio Dr Clay on board meds reviewed labs reviewed carmen meds as ordered f/u with Critical care MD carmen mx as ordered f/u labs dvt/gi ppx carmen to monitor
[2017-11-26] MEDS: Insulin Detemir 100 units/ml Vial (Levemir) SC SCH (21:35)
[2017-11-26] MEDS ORDERED: Insulin Detemir 100 units/ml Vial (Levemir) SC SCH (22:00)
[2017-11-27] MEDS: (Novolin R) Insulin Human Regular 100 units/ml vial SC SCH ×4 (08:20→21:16)
[2017-11-27] MEDS: Metoprolol Succinate 12.5 mg XL Tab PO SCH (09:41)
[2017-11-27] MEDS: (Novolog Mix 70/30) Insulin Aspart/Insulin Aspar 100 units/ml SC SCH ×2 (10:01→17:27)
--- NOTE | 2017-11-27 12:02 | CARD ---
APPROVED REPORT EKG Measurement Heart [id number] [place] [id number] <Conclusion> Normal sinus rhythm ST & T wave abnormality, consider lateral ischemia Prolonged QT Abnormal ECG
--- NOTE | 2017-11-27 12:03 | CARD ---
APPROVED REPORT EKG Measurement Heart [id number] [id number] <Conclusion> Normal sinus rhythm Possible Left atrial enlargement Marked ST abnormality, possible lateral subendocardial injury Prolonged QT Abnormal ECG
--- NOTE | 2017-11-27 12:03 | CARD ---
APPROVED REPORT EKG Measurement Heart [id number] 172P60 [id number] <Conclusion> Normal sinus rhythm Possible Left atrial enlargement ST & T wave abnormality, consider lateral ischemia Abnormal ECG
--- NOTE | 2017-11-27 12:41 | CARD ---
APPROVED REPORT EXAM: LIMITED Two-dimensional and M-mode echocardiogram with Doppler and color Doppler. Other Information Quality : TDSRhythm : INDICATION CVA/TIA Cardiac Disease: CAD Chest Pain Surgery/Intervention CABG: Date: 2008 RISK FACTORS Hypertension Hyperlipidemia Diabetes <Conclusion> poor window. tds. la,ra & rv size appears normal. lv is probably dilated. lvef of 45-50%. normal lv diastolic function. mitral & tv appears normal. aortic & pv not well seen. no pericardial effusion seen.
--- NOTE | 2017-11-27 15:34 | CP.PCM.PN ---
Subjective - Date & Time of Evaluation Date of Evaluation: 11/27/17 Time of Evaluation: 11:40 - Subjective Subjective: patient has no chest pain. complains of neuropathic pain. Objective - Vital Signs/Intake and Output Vital Signs (last 24 hours): Temp Pulse Resp BP Pulse Ox 97.6 F 70 17 115/38 L 99 11/27/17 12:00 11/27/17 13:47 11/27/17 12:00 11/27/17 12:00 11/27/17 12:00 Intake and Output: 11/27/17 11/27/17 06:59 18:59 Intake Total 240 1000 Output Total 1050 Balance 240 -50 - Medications Medications: Current Medications Albuterol/Ipratropium (Duoneb 3 Mg/0.5 Mg (3 Ml) Ud) 3 ml INH RQ6 PRN PRN Reason: Shortness of Breath Aspirin (Aspirin Chewable) 81 mg PO DAILY [facility] Last Admin: 11/27/17 09:40 Dose: 81 mg Clopidogrel Bisulfate (Plavix) 75 mg PO DAILY [facility] Last Admin: 11/27/17 09:41 Dose: 75 mg Famotidine (Pepcid) 20 mg PO DAILY [facility] Last Admin: 11/27/17 09:41 Dose: 20 mg Fluoxetine HCl (Prozac) 40 mg PO DAILY [facility] Last Admin: 11/27/17 09:55 Dose: 40 mg Furosemide (Lasix) 40 mg PO DAILY [facility] Last Admin: 11/27/17 09:40 Dose: 40 mg Gabapentin (Neurontin) 300 mg PO BID [facility] Last Admin: 11/27/17 09:55 Dose: 300 mg Insulin Aspart (Novolog Mix 70/30 (70/30 Units/Ml)) 10 units SC BID [facility] Last Admin: 11/27/17 10:01 Dose: 10 units Insulin Detemir (Levemir) 40 unit SC HS [facility] Last Admin: 11/26/17 21:35 Dose: 40 unit Insulin Human Regular (Novolin R) 0 unit SC ACHS [facility] PRN Reason: Protocol Last Admin: 11/27/17 11:44 Dose: 3 units Lisinopril (Zestril) 2.5 mg PO DAILY [facility] Last Admin: 11/27/17 09:41 Dose: 2.5 mg Metoprolol Succinate (Toprol Xl) 12.5 mg PO DAILY [facility] Last Admin: 11/27/17 09:41 Dose: 12.5 mg Nitroglycerin (Nitrostat Sl Tab) 0.4 mg SL Q5M PRN Last Admin: 11/26/17 15:03 Dose: 0.4 mg Nitroglycerin (Nitro-Bid 2% Oint) 1 ea TOP BID [facility] Rosuvastatin Calcium (Crestor) 10 mg PO HS [facility] Last Admin: 11/26/17 21:35 Dose: 10 mg - Labs Labs: 11/26/17 06:12 11/26/17 06:14 PT 11.8 SECONDS (9.7-12.2) 11/25/17 14:59 INR 1.1 11/25/17 14:59 APTT 185 SECONDS (21-34) H* D 11/26/17 06:12 - Constitutional Appears: Non-toxic - Head Exam Head Exam: NORMAL INSPECTION - Eye Exam Eye Exam: Normal appearance - ENT Exam ENT Exam: Mucous Membranes Moist - Neck Exam Neck Exam: Full ROM - Respiratory Exam Respiratory Exam: NORMAL BREATHING PATTERN - Cardiovascular Exam Cardiovascular Exam: REGULAR RHYTHM - GI/Abdominal Exam GI & Abdominal Exam: Normal Bowel Sounds - Rectal Exam Rectal Exam: Deferred - Extremities Exam Extremities Exam: Pedal Edema - Back Exam Back Exam: NORMAL INSPECTION - Neurological Exam Neurological Exam: Alert - Psychiatric Exam Psychiatric exam: Normal Affect - Skin Skin Exam: Normal Color Assessment and Plan (1) Unstable angina Assessment & Plan: improved. will add nitropaste Status: Acute (2) CAD (coronary artery disease) Assessment & Plan: eventual cardiac cath but will attemtp medical stabilization first Status: Acute (3) Diabetes Status: Acute
[2017-11-27] MEDS: Nitroglycerin 2% Ointment Foilpak UD TOP SCH (17:27)
--- NOTE | 2017-11-27 18:44 | CP.PCM.PN ---
Subjective - Date & Time of Evaluation Date of Evaluation: 11/27/17 Time of Evaluation: 11:20 - Subjective Subjective: clinically same denies chest pain cardio and crit care md following Objective - Vital Signs/Intake and Output Vital Signs (last 24 hours): Temp Pulse Resp BP Pulse Ox 97.5 F L 72 18 115/38 L 98 11/27/17 16:00 11/27/17 16:00 11/27/17 16:00 11/27/17 16:00 11/27/17 16:00 Intake and Output: 11/27/17 11/27/17 06:59 18:59 Intake Total 240 1000 Output Total 1050 Balance 240 -50 - Medications Medications: Current Medications Albuterol/Ipratropium (Duoneb 3 Mg/0.5 Mg (3 Ml) Ud) 3 ml INH RQ6 PRN PRN Reason: Shortness of Breath Aspirin (Aspirin Chewable) 81 mg PO DAILY [facility] Last Admin: 11/27/17 09:40 Dose: 81 mg Clopidogrel Bisulfate (Plavix) 75 mg PO DAILY [facility] Last Admin: 11/27/17 09:41 Dose: 75 mg Famotidine (Pepcid) 20 mg PO DAILY [facility] Last Admin: 11/27/17 09:41 Dose: 20 mg Fluoxetine HCl (Prozac) 40 mg PO DAILY [facility] Last Admin: 11/27/17 09:55 Dose: 40 mg Furosemide (Lasix) 40 mg PO DAILY [facility] Last Admin: 11/27/17 09:40 Dose: 40 mg Gabapentin (Neurontin) 300 mg PO BID [facility] Last Admin: 11/27/17 17:27 Dose: 300 mg Insulin Aspart (Novolog Mix 70/30 (70/30 Units/Ml)) 10 units SC BID [facility] Last Admin: 11/27/17 17:27 Dose: 10 units Insulin Detemir (Levemir) 40 unit SC HS [facility] Last Admin: 11/26/17 21:35 Dose: 40 unit Insulin Human Regular (Novolin R) 0 unit SC ACHS [facility] PRN Reason: Protocol Last Admin: 11/27/17 17:26 Dose: 4 units Lisinopril (Zestril) 2.5 mg PO DAILY [facility] Last Admin: 11/27/17 09:41 Dose: 2.5 mg Metoprolol Succinate (Toprol Xl) 12.5 mg PO DAILY [facility] Last Admin: 11/27/17 09:41 Dose: 12.5 mg Nitroglycerin (Nitrostat Sl Tab) 0.4 mg SL Q5M PRN Last Admin: 11/26/17 15:03 Dose: 0.4 mg Nitroglycerin (Nitro-Bid 2% Oint) 1 ea TOP BID [facility] Last Admin: 11/27/17 17:27 Dose: 1 ea Rosuvastatin Calcium (Crestor) 10 mg PO HS [facility] Last Admin: 11/26/17 21:35 Dose: 10 mg - Labs Labs: 11/26/17 06:12 11/26/17 06:14 PT 11.8 SECONDS (9.7-12.2) 11/25/17 14:59 INR 1.1 11/25/17 14:59 APTT 185 SECONDS (21-34) H* D 11/26/17 06:12 - Constitutional Appears: Well, No Acute Distress - Head Exam Head Exam: ATRAUMATIC, NORMAL INSPECTION, NORMOCEPHALIC - Eye Exam Eye Exam: EOMI, Normal appearance, PERRL Pupil Exam: NORMAL ACCOMODATION, PERRL - ENT Exam ENT Exam: Mucous Membranes Moist, Normal Exam - Neck Exam Neck Exam: Full ROM, Normal Inspection. absent: Lymphadenopathy - Respiratory Exam Respiratory Exam: Decreased Breath Sounds - Cardiovascular Exam Cardiovascular Exam: REGULAR RHYTHM, +S1, +S2 - GI/Abdominal Exam GI & Abdominal Exam: Soft, Diminished Bowel Sounds - Rectal Exam Rectal Exam: Deferred - Neurological Exam Neurological Exam: Alert, Awake, Oriented x3 Assessment and Plan (1) Unstable angina Status: Acute (2) Abdominal pain Status: Acute (3) Abrasion of face Status: Acute (4) Acute chest pain Status: Acute (5) Acute coronary syndrome Status: Acute (6) Allergic urticaria Status: Acute (7) Anemia Status: Acute (8) Angina at rest Status: Acute (9) Anxiety Status: Acute (10) Arthritis Status: Acute (11) Asthma Status: Acute (12) CAD (coronary artery disease) Status: Acute (13) CHF (congestive heart failure) Status: Acute (14) CHF exacerbation Status: Acute (15) Chest pain Status: Acute (16) Chest pain Status: Acute (17) Cholelithiasis without obstruction Status: Acute (18) Conjunctivitis Status: Acute (19) Diabetes Status: Acute (20) Dizziness Status: Acute (21) Dizziness Status: Acute (22) Dyspnea Status: Acute (23) Dyspnea Status: Acute (24) Elevated LFTs Status: Acute (25) Elevated liver enzymes Status: Acute (26) Elevated troponin Status: Acute (27) Gastroenteritis Status: Acute (28) Generalized edema Status: Acute (29) HTN (hypertension) Status: Acute (30) Headache Status: Acute (31) Hematuria Status: Acute (32) Hypercholesteremia Status: Acute (33) Hyperkalemia Status: Acute (34) Hyperlipemia Status: Acute (35) Knee pain Status: Acute (36) Lip numbness Status: Acute (37) NSTEMI (non-ST elevated myocardial infarction) Status: Acute (38) ESPERANZA (obstructive sleep apnea) Status: Acute (39) Odynophagia Status: Acute (40) Osteoarthritis Status: Acute (41) PFO (patent foramen ovale) Status: Acute (42) Paresthesia Status: Acute (43) Personal history of coronary artery disease Status: Acute (44) Precordial pain Status: Acute (45) Prophylactic measure Status: Acute (46) Psychiatric disorder Status: Acute (47) Shoulder strain Status: Acute (48) TIA (transient ischemic attack) Status: Acute (49) UTI (urinary tract infection) Status: Acute (50) Vaginal candidiasis Status: Acute (51) Wound infection Status: Acute (52) Wrist injury Status: Acute (53) Diabetes type 2, uncontrolled Status: Chronic (54) Status post coronary angioplasty Status: Chronic - Assessment and Plan (Free Text) Plan: case d/w critical care cardio Dr Obed cali reviewed carmen as ordered heart healthy diet dvt/gi ppx
[2017-11-27] MEDS: Insulin Detemir 100 units/ml Vial (Levemir) SC SCH (22:01)
[2017-11-28] MEDS: (Novolin R) Insulin Human Regular 100 units/ml vial SC SCH ×4 (08:13→21:46)
[2017-11-28] MEDS: Nitroglycerin 2% Ointment Foilpak UD TOP SCH ×2 (10:02→17:39)
[2017-11-28] MEDS: Metoprolol Succinate 12.5 mg XL Tab PO SCH (10:03)
[2017-11-28] MEDS: (Novolog Mix 70/30) Insulin Aspart/Insulin Aspar 100 units/ml SC SCH ×2 (10:04→17:40)
--- NOTE | 2017-11-28 12:25 | CP.PCM.PN ---
Subjective - Date & Time of Evaluation Date of Evaluation: 11/28/17 Time of Evaluation: 12:20 - Subjective Subjective: patient has recurrent chest pain despite nitropaste. Objective - Vital Signs/Intake and Output Vital Signs (last 24 hours): Temp Pulse Resp BP Pulse Ox 98.5 F 80 20 178/69 H 96 11/28/17 08:00 11/28/17 10:00 11/28/17 08:00 11/28/17 10:02 11/28/17 00:00 Intake and Output: 11/28/17 11/28/17 06:59 18:59 Intake Total 420 240 Output Total 300 0 Balance 120 240 - Medications Medications: Current Medications Albuterol/Ipratropium (Duoneb 3 Mg/0.5 Mg (3 Ml) Ud) 3 ml INH RQ6 PRN PRN Reason: Shortness of Breath Aspirin (Aspirin Chewable) 81 mg PO DAILY [facility] Last Admin: 11/28/17 10:03 Dose: 81 mg Clopidogrel Bisulfate (Plavix) 75 mg PO DAILY [facility] Last Admin: 11/28/17 10:02 Dose: 75 mg Famotidine (Pepcid) 20 mg PO DAILY [facility] Last Admin: 11/28/17 10:02 Dose: 20 mg Fluoxetine HCl (Prozac) 40 mg PO DAILY [facility] Last Admin: 11/28/17 10:04 Dose: 40 mg Furosemide (Lasix) 40 mg PO DAILY [facility] Last Admin: 11/28/17 10:02 Dose: 40 mg Gabapentin (Neurontin) 300 mg PO BID [facility] Last Admin: 11/28/17 10:01 Dose: 300 mg Insulin Aspart (Novolog Mix 70/30 (70/30 Units/Ml)) 10 units SC BID [facility] Last Admin: 11/28/17 10:04 Dose: 10 units Insulin Detemir (Levemir) 40 unit SC HS [facility] Last Admin: 11/27/17 22:01 Dose: 40 unit Insulin Human Regular (Novolin R) 0 unit SC ACHS [facility] PRN Reason: Protocol Last Admin: 11/28/17 11:54 Dose: 4 units Lisinopril (Zestril) 2.5 mg PO DAILY [facility] Last Admin: 11/28/17 10:03 Dose: 2.5 mg Metoprolol Succinate (Toprol Xl) 12.5 mg PO DAILY [facility] Last Admin: 11/28/17 10:03 Dose: 12.5 mg Nitroglycerin (Nitrostat Sl Tab) 0.4 mg SL Q5M PRN Last Admin: 11/26/17 15:03 Dose: 0.4 mg Nitroglycerin (Nitro-Bid 2% Oint) 1 ea TOP BID [facility] Last Admin: 11/28/17 10:02 Dose: 1 ea Rosuvastatin Calcium (Crestor) 10 mg PO HS [facility] Last Admin: 11/27/17 21:58 Dose: 10 mg - Labs Labs: 11/26/17 06:12 11/26/17 06:14 PT 11.8 SECONDS (9.7-12.2) 11/25/17 14:59 INR 1.1 11/25/17 14:59 APTT 185 SECONDS (21-34) H* D 11/26/17 06:12 - Constitutional Appears: Non-toxic - Head Exam Head Exam: NORMAL INSPECTION - Eye Exam Eye Exam: Normal appearance - ENT Exam ENT Exam: Mucous Membranes Moist - Neck Exam Neck Exam: Full ROM - Respiratory Exam Respiratory Exam: NORMAL BREATHING PATTERN - Cardiovascular Exam Cardiovascular Exam: REGULAR RHYTHM - GI/Abdominal Exam GI & Abdominal Exam: Normal Bowel Sounds - Rectal Exam Rectal Exam: Deferred - Back Exam Back Exam: NORMAL INSPECTION - Neurological Exam Neurological Exam: Alert - Psychiatric Exam Psychiatric exam: Normal Affect - Skin Skin Exam: Normal Color Assessment and Plan (1) Unstable angina Assessment & Plan: The repeat EKG reveals recurrent T wave inversion in the lateral leads. A previous stress test reveasl laterla ischemia. Givne failure of medical tehrapy and recurrent angina, the patient will require cardiac cathterization and coronary intervention. will transfer for proposed coronary intervention tomorrow. Status: Acute (2) CAD (coronary artery disease) Assessment & Plan: coitninue ASA/Plavix. insurance will not cover Brilinta therapy. Status: Acute (3) Diabetes Status: Acute
--- NOTE | 2017-11-28 15:46 | CARD ---
APPROVED REPORT EKG Measurement Heart [id number] [place] 180P50 [id number] <Conclusion> Normal sinus rhythm ST & T wave abnormality, consider anterolateral ischemia Prolonged QT Abnormal ECG
--- NOTE | 2017-11-28 16:17 | CP.PCM.PN ---
Subjective - Date & Time of Evaluation Date of Evaluation: 11/28/17 Time of Evaluation: 12:40 - Subjective Subjective: clinically same rx in progress cardio following per Dr Clay, given failure of medical therapy and recurrent angina, the patient will require cardiac catheterization and coronary intervention no n/v denies chest pain Objective - Vital Signs/Intake and Output Vital Signs (last 24 hours): Temp Pulse Resp BP Pulse Ox 98.1 F 79 16 119/58 L 100 11/28/17 12:00 11/28/17 12:00 11/28/17 12:00 11/28/17 12:00 11/28/17 12:00 Intake and Output: 11/28/17 11/28/17 06:59 18:59 Intake Total 420 420 Output Total 300 0 Balance 120 420 - Medications Medications: Current Medications Acetaminophen (Tylenol 325mg Tab) 650 mg PO Q6 PRN PRN Reason: Pain, moderate (4-7) Last Admin: 11/28/17 14:09 Dose: 650 mg Albuterol/Ipratropium (Duoneb 3 Mg/0.5 Mg (3 Ml) Ud) 3 ml INH RQ6 PRN PRN Reason: Shortness of Breath Aspirin (Aspirin Chewable) 81 mg PO DAILY [facility] Last Admin: 11/28/17 10:03 Dose: 81 mg Clopidogrel Bisulfate (Plavix) 75 mg PO DAILY [facility] Last Admin: 11/28/17 10:02 Dose: 75 mg Famotidine (Pepcid) 20 mg PO DAILY [facility] Last Admin: 11/28/17 10:02 Dose: 20 mg Fluoxetine HCl (Prozac) 40 mg PO DAILY [facility] Last Admin: 11/28/17 10:04 Dose: 40 mg Furosemide (Lasix) 40 mg PO DAILY [facility] Last Admin: 11/28/17 10:02 Dose: 40 mg Gabapentin (Neurontin) 300 mg PO BID [facility] Last Admin: 11/28/17 10:01 Dose: 300 mg Insulin Aspart (Novolog Mix 70/30 (70/30 Units/Ml)) 10 units SC BID [facility] Last Admin: 11/28/17 10:04 Dose: 10 units Insulin Detemir (Levemir) 40 unit SC HS [facility] Last Admin: 11/27/17 22:01 Dose: 40 unit Insulin Human Regular (Novolin R) 0 unit SC ACHS [facility] PRN Reason: Protocol Last Admin: 11/28/17 16:06 Dose: 2 units Lisinopril (Zestril) 2.5 mg PO DAILY [facility] Last Admin: 11/28/17 10:03 Dose: 2.5 mg Metoprolol Succinate (Toprol Xl) 12.5 mg PO DAILY [facility] Last Admin: 11/28/17 10:03 Dose: 12.5 mg Nitroglycerin (Nitrostat Sl Tab) 0.4 mg SL Q5M PRN Last Admin: 11/26/17 15:03 Dose: 0.4 mg Nitroglycerin (Nitro-Bid 2% Oint) 1 ea TOP BID [facility] Last Admin: 11/28/17 10:02 Dose: 1 ea Rosuvastatin Calcium (Crestor) 10 mg PO HS [facility] Last Admin: 11/27/17 21:58 Dose: 10 mg - Labs Labs: 11/26/17 06:12 11/26/17 06:14 PT 11.8 SECONDS (9.7-12.2) 11/25/17 14:59 INR 1.1 11/25/17 14:59 APTT 185 SECONDS (21-34) H* D 11/26/17 06:12 - Constitutional Appears: Well, No Acute Distress - Head Exam Head Exam: ATRAUMATIC, NORMAL INSPECTION, NORMOCEPHALIC - Eye Exam Eye Exam: EOMI, Normal appearance, PERRL Pupil Exam: NORMAL ACCOMODATION, PERRL - ENT Exam ENT Exam: Mucous Membranes Moist, Normal Exam - Neck Exam Neck Exam: Full ROM, Normal Inspection. absent: Lymphadenopathy - Respiratory Exam Respiratory Exam: Decreased Breath Sounds - Cardiovascular Exam Cardiovascular Exam: REGULAR RHYTHM, +S1, +S2 - GI/Abdominal Exam GI & Abdominal Exam: Soft, Diminished Bowel Sounds - Rectal Exam Rectal Exam: Deferred - Neurological Exam Neurological Exam: Alert, Awake, Oriented x3 Assessment and Plan (1) Unstable angina Status: Acute (2) Abdominal pain Status: Acute (3) Abrasion of face Status: Acute (4) Acute chest pain Status: Acute (5) Acute coronary syndrome Status: Acute (6) Allergic urticaria Status: Acute (7) Anemia Status: Acute (8) Angina at rest Status: Acute (9) Anxiety Status: Acute (10) Arthritis Status: Acute (11) Asthma Status: Acute (12) CAD (coronary artery disease) Status: Acute (13) CHF (congestive heart failure) Status: Acute (14) CHF exacerbation Status: Acute (15) Chest pain Status: Acute (16) Chest pain Status: Acute (17) Cholelithiasis without obstruction Status: Acute (18) Conjunctivitis Status: Acute (19) Diabetes Status: Acute (20) Dizziness Status: Acute (21) Dizziness Status: Acute (22) Dyspnea Status: Acute (23) Dyspnea Status: Acute (24) Elevated LFTs Status: Acute (25) Elevated liver enzymes Status: Acute (26) Elevated troponin Status: Acute (27) Gastroenteritis Status: Acute (28) Generalized edema Status: Acute (29) HTN (hypertension) Status: Acute (30) Headache Status: Acute (31) Hematuria Status: Acute (32) Hypercholesteremia Status: Acute (33) Hyperkalemia Status: Acute (34) Hyperlipemia Status: Acute (35) Knee pain Status: Acute (36) Lip numbness Status: Acute (37) NSTEMI (non-ST elevated myocardial infarction) Status: Acute (38) ESPERANZA (obstructive sleep apnea) Status: Acute (39) Odynophagia Status: Acute (40) Osteoarthritis Status: Acute (41) PFO (patent foramen ovale) Status: Acute (42) Paresthesia Status: Acute (43) Personal history of coronary artery disease Status: Acute (44) Precordial pain Status: Acute (45) Prophylactic measure Status: Acute (46) Psychiatric disorder Status: Acute (47) Shoulder strain Status: Acute (48) TIA (transient ischemic attack) Status: Acute (49) UTI (urinary tract infection) Status: Acute (50) Vaginal candidiasis Status: Acute (51) Wound infection Status: Acute (52) Wrist injury Status: Acute (53) Diabetes type 2, uncontrolled Status: Chronic (54) Status post coronary angioplasty Status: Chronic - Assessment and Plan (Free Text) Plan: repeat EKG reveals recurrent T wave inversion in the lateral leads. previous stress test reveasl lateral ischemia. case d/w cardio Dr Clay planning for transfer for proposed coronary intervention tomorrow meds reviewed carmen as ordered
[2017-11-28] MEDS: Insulin Detemir 100 units/ml Vial (Levemir) SC SCH (21:49)
[2017-11-29 06:37] LABS: PROTHROMBIN TIME 11.4 SECONDS (9.7-12.2)
[2017-11-29] MEDS: (Novolin R) Insulin Human Regular 100 units/ml vial SC SCH ×4 (08:54→23:40)
[2017-11-29] MEDS: (Novolog Mix 70/30) Insulin Aspart/Insulin Aspar 100 units/ml SC SCH ×2 (09:25→19:35)
[2017-11-29] MEDS: Nitroglycerin 2% Ointment Foilpak UD TOP SCH ×2 (09:34→19:34)
[2017-11-29] MEDS: Metoprolol Succinate 12.5 mg XL Tab PO SCH (09:36)
--- NOTE | 2017-11-29 19:10 | CP.PCM.PN ---
Subjective - Date & Time of Evaluation Date of Evaluation: 11/29/17 Time of Evaluation: 11:20 - Subjective Subjective: clinically same Objective - Vital Signs/Intake and Output Vital Signs (last 24 hours): Temp Pulse Resp BP Pulse Ox 97 F L 72 16 110/64 96 11/29/17 08:00 11/29/17 12:40 11/29/17 12:40 11/29/17 12:40 11/29/17 12:40 Intake and Output: 11/29/17 11/30/17 18:59 06:59 Intake Total 150 Output Total 900 Balance -750 - Medications Medications: Current Medications Acetaminophen (Tylenol 325mg Tab) 650 mg PO Q6 PRN PRN Reason: Pain, moderate (4-7) Last Admin: 11/28/17 14:09 Dose: 650 mg Albuterol/Ipratropium (Duoneb 3 Mg/0.5 Mg (3 Ml) Ud) 3 ml INH RQ6 PRN PRN Reason: Shortness of Breath Aspirin (Aspirin Chewable) 81 mg PO DAILY [facility] Last Admin: 11/29/17 09:33 Dose: 81 mg Clopidogrel Bisulfate (Plavix) 75 mg PO DAILY [facility] [place] Last Admin: 11/29/17 09:33 Dose: 75 mg Famotidine (Pepcid) 20 mg PO DAILY [facility] [place] Last Admin: 11/29/17 09:34 Dose: 20 mg Fluoxetine HCl (Prozac) 40 mg PO DAILY [facility] Last Admin: 11/29/17 09:33 Dose: 40 mg Furosemide (Lasix) 40 mg PO DAILY [facility] Last Admin: 11/29/17 09:32 Dose: 40 mg Gabapentin (Neurontin) 300 mg PO BID [facility] Last Admin: 11/29/17 09:33 Dose: 300 mg Insulin Aspart (Novolog Mix 70/30 (70/30 Units/Ml)) 10 units SC BID [facility] Last Admin: 11/29/17 09:25 Dose: Not Given Insulin Detemir (Levemir) 40 unit SC HS [facility] Last Admin: 11/28/17 21:49 Dose: 40 unit Insulin Human Regular (Novolin R) 0 unit SC ACHS [facility] PRN Reason: Protocol Last Admin: 11/29/17 12:07 Dose: Not Given Lisinopril (Zestril) 2.5 mg PO DAILY [facility] Last Admin: 11/29/17 09:33 Dose: 2.5 mg Metoprolol Succinate (Toprol Xl) 12.5 mg PO DAILY [facility] Last Admin: 11/29/17 09:36 Dose: 12.5 mg Nitroglycerin (Nitrostat Sl Tab) 0.4 mg SL Q5M PRN Last Admin: 11/26/17 15:03 Dose: 0.4 mg Nitroglycerin (Nitro-Bid 2% Oint) 1 ea TOP BID [facility] Last Admin: 11/29/17 09:34 Dose: 1 ea Rosuvastatin Calcium (Crestor) 10 mg PO HS [facility] [place] Last Admin: 11/28/17 21:49 Dose: 10 mg - Labs Labs: 11/26/17 06:12 11/26/17 06:14 PT 11.4 SECONDS (9.7-12.2) 11/29/17 06:11 INR 1.0 11/29/17 06:11 APTT 30 SECONDS (21-34) D 11/29/17 06:11 - Constitutional Appears: Well - Head Exam Head Exam: ATRAUMATIC, NORMAL INSPECTION, NORMOCEPHALIC - Eye Exam Eye Exam: EOMI, Normal appearance, PERRL Pupil Exam: NORMAL ACCOMODATION, PERRL - ENT Exam ENT Exam: Mucous Membranes Moist, Normal Exam - Neck Exam Neck Exam: Full ROM, Normal Inspection. absent: Lymphadenopathy - Respiratory Exam Respiratory Exam: Decreased Breath Sounds - Cardiovascular Exam Cardiovascular Exam: REGULAR RHYTHM, +S1, +S2 - GI/Abdominal Exam GI & Abdominal Exam: Diminished Bowel Sounds - Rectal Exam Rectal Exam: Deferred Assessment and Plan - Assessment and Plan (Free Text) Plan: trasnfer to [facility] for cath and further work up carmen as ordered
[2017-11-29] MEDS: Insulin Detemir 100 units/ml Vial (Levemir) SC SCH (23:40)
[2017-11-30] MEDS: (Novolin R) Insulin Human Regular 100 units/ml vial SC SCH ×4 (08:04→21:34)
[2017-11-30] MEDS: (Novolog Mix 70/30) Insulin Aspart/Insulin Aspar 100 units/ml SC SCH ×3 (09:29→21:36)
[2017-11-30] MEDS: Metoprolol Succinate 12.5 mg XL Tab PO SCH (09:31)
[2017-11-30] MEDS: Nitroglycerin 2% Ointment Foilpak UD TOP SCH ×2 (09:32→18:32)
[2017-11-30] MEDS ORDERED: Nitroglycerin 50mg in D5W 50 MG/250 ML BOTTLE IV SCH (11:45)
--- NOTE | 2017-11-30 13:53 | CP.CCUPN ---
<Jaelyn Masterson - Last Filed: 11/30/17 14:28> CCU Subjective - Physician Review Subjective (Free Text): Patient seen and examined at bedside. Patient reported chest pain, sharp in nature, self resolving. CCU Objective - Vital Signs / Intake & Output Vital Signs (Last 4 hours): Vital Signs Pulse BP 11/30/17 11:49 87 130/66 Intake and Output (Last 8hrs): Intake & Output 11/29/17 11/30/17 11/30/17 22:59 06:59 14:59 Intake Total 250 0 Output Total 600 Balance -350 0 Weight 239 lb Intake: IV 0 Oral 250 Output: Urine 600 Urine, Voided 600 Stool 0 - Physical Exam Head: Positive for: Atraumatic, Normocephalic Pupils: Positive for: PERRL Extroacular Muscles: Positive for: EOMI Conjunctiva: Positive for: Normal Mouth: Positive for: Moist Mucous Membranes Respiratory/Chest: Positive for: Clear to Auscultation Cardiovascular: Positive for: Normal S1, S2 Abdomen: Positive for: Normal Bowel Sounds. Negative for: Tenderness, Distention Upper Extremity: Positive for: Normal Inspection, Normal ROM, NORMAL PULSES, Neurovascularly Intact, Capillary Refill < 2s Lower Extremity: Positive for: Normal Inspection, NORMAL PULSES Neurological: Positive for: GCS=15, CN II-XII Intact Skin: Positive for: Warm, Dry, Normal Color Psychiatric: Positive for: Alert, Oriented x 3, Normal Insight - Medications Active Medications: Active Medications Generic Name Dose Route Start Last Admin Trade Name Freq PRN Reason Stop Dose Admin Acetaminophen 650 mg 11/28/17 13:47 11/30/17 00:04 Tylenol 325mg Tab PO 650 mg Q6 PRN Administration Pain, moderate (4-7) Albuterol/Ipratropium 3 ml 11/25/17 17:30 Duoneb 3 Mg/0.5 Mg (3 Ml) Ud INH RQ6 PRN Shortness of Breath Aspirin 81 mg 11/26/17 10:00 11/30/17 09:30 Aspirin Chewable PO 81 mg DAILY NARCISA Administration Clopidogrel Bisulfate 75 mg 11/26/17 10:00 11/30/17 09:30 Plavix PO 75 mg DAILY NARCISA Administration Famotidine 20 mg 11/26/17 10:00 11/30/17 09:30 Pepcid PO 20 mg DAILY NARCISA Administration Fluoxetine HCl 40 mg 11/26/17 10:00 11/30/17 09:31 Prozac PO 40 mg DAILY NARCISA Administration Furosemide 40 mg 11/26/17 10:00 11/30/17 09:30 Lasix PO 40 mg DAILY NARCISA Administration Gabapentin 300 mg 11/26/17 18:00 11/30/17 10:31 Neurontin PO 300 mg BID NARCISA Administration Nitroglycerin/Dextrose 50 mg in 250 mls @ 1.5 mls/hr 11/30/17 11:45 11/30/17 11:58 Nitroglycerin 50 Mg/250 Ml D5w IV 20 mcg/min .Q24H NARCISA 6 mls/hr Protocol Titration 5 MCG/MIN Insulin Aspart 10 units 11/25/17 18:00 11/30/17 09:29 Novolog Mix 70/30 (70/30 Units/Ml) SC 10 units BID NARCISA Administration Insulin Detemir 40 unit 11/26/17 22:00 11/29/17 23:40 Levemir SC 40 unit HS [facility] Administration Insulin Human Regular 0 unit 11/30/17 13:41 Novolin R SC ACHS [facility] Protocol Isosorbide Mononitrate 30 mg 11/30/17 10:15 11/30/17 10:31 Imdur Er PO 30 mg DAILY [facility] Administration Lisinopril 5 mg 12/01/17 10:00 Zestril PO DAILY [facility] Metoprolol Succinate 25 mg 12/01/17 10:00 Toprol Xl PO DAILY [facility] Nitroglycerin 0.4 mg 11/25/17 19:45 11/30/17 00:25 Nitrostat Sl Tab SL 0.4 mg Q5M PRN Administration Nitroglycerin 1 ea 11/27/17 18:00 11/30/17 09:32 Nitro-Bid 2% Oint TOP 1 ea BID NARCISA Administration Ranolazine 1,000 mg 11/30/17 18:00 Ranexa PO BID [facility] Rosuvastatin Calcium 10 mg 11/25/17 22:00 11/29/17 23:40 Crestor PO 10 mg HS [facility] Administration - Patient Studies Lab Studies: Lab Studies 11/30/17 11/30/17 11/30/17 Range/Units 13:36 11:44 11:33 POC Glucose (mg/dL) > 500 H* > 500 H* (65-110) mg/dL Troponin I < 0.0120 (0.00-0.120) ng/mL 11/30/17 11/29/17 Range/Units 07:24 23:22 POC Glucose (mg/dL) 459 H* 481 H* (65-110) mg/dL Troponin I (0.00-0.120) ng/mL Laboratory Results - last 24 hr 11/29/17 11/30/17 11/30/17 23:22 07:24 11:33 POC Glucose (mg/dL) 481 H* 459 H* > 500 H* Troponin I 11/30/17 11/30/17 11:44 13:36 POC Glucose (mg/dL) > 500 H* Troponin I < 0.0120 EKG/Cardiology Studies: Cardiology / EKG Studies 11/30/17 00:36 ELECTROCARDIOGRAM Stat Comment: Mode Of Transportation: BED Reason For Exam: chest pain 11/30/17 11:32 ELECTROCARDIOGRAM Stat Comment: Mode Of Transportation: PORTABLE Reason For Exam: ACS Fingerstick Blood Sugar Results: 481 Critical Care Progress Note - Nutrition Nutrition: Nutrition Category Date Time Status Heart Healthy Diet [DIET] Diets 11/30/17 Breakfast Active Assessment/Plan - Assessment and Plan (Free Text) Assessment: This is a 52 year old female with PMHx of CAD with CABG x 4 vessels in 2008, with recent stent placement in [place] 09/2017, Left Carotid Stenosis 60-70%, HTN, HF with preservedEF (LVEF50%), ESPERANZA, Asthma, T2DM- uncontrolled with A1C 10.3, Hx CVA, Anxiety admitted to ICU for Unstable Angina s/p Plan: Neuro: AAOX3 GCS 15 A: Hx CVA - Started Crestor Cardio: A: Unstable Angina - Patient evaluated by Dr. Clay on 11/04/17: Stress test showed: "Evidence of lateral and apical ischemia. The patient has small vessel disease of the obtuse marginals which likely accounts for the ischemia. These lesions are too small for intervention. Patient needs Ranexa 1000mg BID. This will prevent angina and reduce her hospitalizations". - ECHO (11/05/17): EF 50%, LV fxn normal. No AR, MR, TR, PVR. - Troponins negative x 2 - EKG: initial in ED had NEW DEPRESSIONS I, V4-6 COMPARED 11/03/2017, repeat after nitro had resolved ST depressions, NSR @ 87 BPM - S/P cardiac cath - occlusions noted; only medical management - Started on ASA, Plavix, Ranexa, Nitrostat, Imdur 30mg - Persistent chest pain - started on nitro drip A: CAD - s/p CABG x4 in 2008 - 10/23/17: Carotid duplex - R side clear. L side 60-70% stenosis of the L proximal internal carotid. - s/p stent of the circumflex several wks ago. A: Diastolic HFpEF - I/O, daily weights, Fluid restriction - ECHO (11/05/17): EF 50%, LV fxn normal. No AR, MR, TR, PVR. - Repeat ECHO: LVEF 45-50% - BNP - 260 A: Carotid Stenosis - 10/27: Head/Neck CTA 10/27- 1. Significant stenosis of left carotid bifurcation/ proximal left internal carotid artery estimated at approximately 60-70%. 2. There are calcified plaque changes also seen within both cavernous carotid and the distal vertebral arteries with the significant stenosis of the right cavernous carotid and left vertebral artery. See full report. 10/26: Carotid duplex - R side clear. L side 60-70% stenosis of the L proximal internal carotid. see full report. Patient for CT angio tomorrow morning at 8am. Patient has a seafood allergy. Per Dr. Stauffer's recommendation, patient will be following protocol for allergy - Prednisone 50mg PO at 13hrs, 6hrs, and 1hr before contrast. Benadryl 50mg PO 1hr before contrast. Patient will followup with Dr. Stauffer to have MRI/MRA performed as outpatient. 10/25: MRI not performed because pt had cardiac stent placed several wks ago. A: HTN - Patient was controlled prior without medications - Started on Lisinopril 5 mg PO (renal protection), Metoprolol 25mg daily, lasix 40mg Pulm: A: Asthma - Duonebs PRN - Claritin 10mg A: ESPERANZA - CPAP at night Endo: A: Uncontrolled T2DM - Last A1c (10/29/17): 11.2 --> 11/25/17 10.3 - Accuchecks - Resumed: Levemir 40 units HS, Novolin 70/30 10 units ACHS, ISS- high - Started Crestor 10mg, Lisinopril 5 mg PO, Metoprolol 25 daily - Carb consistent Diet Psych: A: Anxiety - Continue Prozac Prophylaxis - Protonix - SCDs, Heparin Q8H - Patient has Iodine allergy - will need to premedicate prior to any contrast DW Dr. Rayo, Jaelyn Masterson DO, PGY-1 <Kennedy Rayo M - Last Filed: 11/30/17 17:42> CCU Objective - Vital Signs / Intake & Output Vital Signs (Last 4 hours): Vital Signs Temp Pulse BP Pulse Ox 11/30/17 16:00 97.6 F 77 98 11/30/17 15:33 66 127/64 99 11/30/17 15:00 68 100 11/30/17 14:33 70 121/59 L 99 11/30/17 14:00 69 116/58 L 100 11/30/17 13:43 71 100 Intake and Output (Last 8hrs): Intake & Output 11/30/17 11/30/17 11/30/17 06:59 14:59 22:59 Intake Total 250 24 18 Output Total 600 Balance -350 24 18 Weight 239 lb Intake: IV 0 Intake, IV Amount 24 18 Left Forearm 6 Left Proximal Port 18 18 Forearm Oral 250 Output: Urine 600 Urine, Voided 600 Stool 0 - Medications Active Medications: Active Medications Generic Name Dose Route Start Last Admin Trade Name Freq PRN Reason Stop Dose Admin Acetaminophen 650 mg 11/28/17 13:47 11/30/17 00:04 Tylenol 325mg Tab PO 650 mg Q6 PRN Administration Pain, moderate (4-7) Albuterol/Ipratropium 3 ml 11/25/17 17:30 Duoneb 3 Mg/0.5 Mg (3 Ml) Ud INH RQ6 PRN Shortness of Breath Aspirin 81 mg 11/26/17 10:00 11/30/17 09:30 Aspirin Chewable PO 81 mg DAILY NARCISA Administration Clopidogrel Bisulfate 75 mg 11/26/17 10:00 11/30/17 09:30 Plavix PO 75 mg DAILY NARCISA Administration Famotidine 20 mg 11/26/17 10:00 11/30/17 09:30 Pepcid PO 20 mg DAILY NARCISA Administration Fluoxetine HCl 40 mg 11/26/17 10:00 11/30/17 09:31 Prozac PO 40 mg DAILY NARCISA Administration Furosemide 40 mg 11/26/17 10:00 11/30/17 09:30 Lasix PO 40 mg DAILY NARCISA Administration Gabapentin 300 mg 11/26/17 18:00 11/30/17 17:32 Neurontin PO 300 mg BID NARCISA Administration Heparin Sodium (Porcine) 5,000 units 11/30/17 22:00 Heparin SC Q8 NARCISA Nitroglycerin/Dextrose 50 mg in 250 mls @ 1.5 mls/hr 11/30/17 11:45 11/30/17 11:58 Nitroglycerin 50 Mg/250 Ml D5w IV 20 mcg/min .Q24H NARCISA 6 mls/hr Protocol Titration 5 MCG/MIN Insulin Aspart 10 units 11/30/17 16:30 11/30/17 17:33 Novolog Mix 70/30 (70/30 Units/Ml) SC 10 u ACHS NARCISA Administration Insulin Detemir 40 unit 11/26/17 22:00 11/29/17 23:40 Levemir SC 40 unit HS [facility] Administration Insulin Human Regular 0 unit 11/30/17 13:41 11/30/17 15:33 Novolin R SC 12 u ACHS [facility] Administration Protocol Isosorbide Mononitrate 30 mg 11/30/17 10:15 11/30/17 10:31 Imdur Er PO 30 mg DAILY [facility] Administration Lisinopril 5 mg 12/01/17 10:00 Zestril PO DAILY [facility] Metoprolol Succinate 25 mg 12/01/17 10:00 Toprol Xl PO DAILY [facility] Nitroglycerin 0.4 mg 11/25/17 19:45 11/30/17 00:25 Nitrostat Sl Tab SL 0.4 mg Q5M PRN Administration Nitroglycerin 1 ea 11/27/17 18:00 11/30/17 09:32 Nitro-Bid 2% Oint TOP 1 ea BID NARCISA Administration Ranolazine 1,000 mg 11/30/17 18:00 11/30/17 17:32 Ranexa PO 1,000 mg BID NARCISA Administration Rosuvastatin Calcium 10 mg 11/25/17 22:00 11/29/17 23:40 Crestor PO 10 mg HS NARCISA Administration - Patient Studies Lab Studies: Lab Studies 11/30/17 11/30/17 11/30/17 Range/Units 16:08 14:29 14:16 WBC (4.8-10.8) K/uL RBC (3.80-5.20) Mil/uL Hgb (11.0-16.0) g/dL Hct (34.0-47.0) % MCV (81.0-99.0) fL MCH (27.0-31.0) pg MCHC (33.0-37.0) g/dL RDW (11.5-14.5) % Plt Count (130-400) K/uL MPV (7.2-11.7) fL Neut % (Auto) (50.0-75.0) % Lymph % (Auto) (20.0-40.0) % Mcnairy % (Auto) (0.0-10.0) % Eos % (Auto) (0.0-4.0) % Baso % (Auto) (0.0-2.0) % Neut # (Auto) (1.8-7.0) K/uL Lymph # (Auto) (1.0-4.3) K/uL Mcnairy # (Auto) (0.0-0.8) K/uL Eos # (Auto) (0.0-0.7) K/uL Baso # (Auto) (0.0-0.2) K/uL pO2 32 (30-55) mm/Hg VBG pH 7.38 (7.32-7.43) VBG pCO2 42 (40-60) mmHg VBG HCO3 23.6 mmol/L VBG Total CO2 26.1 (22-28) mmol/L VBG O2 Sat (Calc) 61.2 (40-65) % VBG Base Excess -0.4 L (0.0-2.0) mmol/L VBG Potassium 4.0 (3.6-5.2) mmol/L Glucose 528 H* D (65-105) mg/dl Lactate 2.3 H (0.7-2.1) mmol/L Crit Value Called To Dr olivares Crit Value Called By Jose bolton [facility] Crit Value Read Back Y Blood Gas Notified Time 1435 Sodium 134.0 133 (132-148) mmol/L Potassium 3.9 (3.6-5.2) mmol/L Chloride 97.0 L 98 (98-107) mmol/L Carbon Dioxide 22 (22-30) mmol/L Anion Gap 17 (10-20) BUN 26 H (7-17) mg/dL Creatinine 0.7 (0.7-1.2) mg/dL Est GFR ( Amer) > 60 Est GFR (Non-Af Amer) > 60 POC Glucose (mg/dL) 408 H* (65-110) mg/dL Random Glucose 470 H* D (65-105) mg/dL Calcium 8.7 (8.6-10.4) mg/dl Phosphorus 4.3 (2.5-4.5) mg/dL Magnesium 1.7 (1.6-2.3) mg/dL Total Bilirubin 0.6 (0.2-1.3) mg/dL AST 27 (14-36) U/L ALT 35 (9-52) U/L Alkaline Phosphatase 78 (38-126) U/L Troponin I (0.00-0.120) ng/mL Total Protein 7.1 (6.3-8.3) g/dL Albumin 3.9 (3.5-5.0) g/dL Globulin 3.2 (2.2-3.9) gm/dL Albumin/Globulin Ratio 1.2 (1.0-2.1) Venous Blood Potassium 4.0 (3.6-5.2) mmol/L 11/30/17 11/30/17 11/30/17 Range/Units 14:16 13:36 11:44 WBC 9.0 D (4.8-10.8) K/uL RBC 3.78 L (3.80-5.20) Mil/uL Hgb 12.4 (11.0-16.0) g/dL Hct 35.7 (34.0-47.0) % MCV 94.4 (81.0-99.0) fL MCH 32.7 H (27.0-31.0) pg MCHC 34.7 (33.0-37.0) g/dL RDW 13.7 (11.5-14.5) % Plt Count 177 (130-400) K/uL MPV 10.3 (7.2-11.7) fL Neut % (Auto) 81.4 H (50.0-75.0) % Lymph % (Auto) 10.7 L (20.0-40.0) % Mcnairy % (Auto) 7.7 (0.0-10.0) % Eos % (Auto) 0.1 (0.0-4.0) % Baso % (Auto) 0.1 (0.0-2.0) % Neut # (Auto) 7.3 H (1.8-7.0) K/uL Lymph # (Auto) 1.0 (1.0-4.3) K/uL Mcnairy # (Auto) 0.7 (0.0-0.8) K/uL Eos # (Auto) 0.0 (0.0-0.7) K/uL Baso # (Auto) 0.0 (0.0-0.2) K/uL pO2 (30-55) mm/Hg VBG pH (7.32-7.43) VBG pCO2 (40-60) mmHg VBG HCO3 mmol/L VBG Total CO2 (22-28) mmol/L VBG O2 Sat (Calc) (40-65) % VBG Base Excess (0.0-2.0) mmol/L VBG Potassium (3.6-5.2) mmol/L Glucose (65-105) mg/dl Lactate (0.7-2.1) mmol/L Crit Value Called To Crit Value Called By Crit Value Read Back Blood Gas Notified Time Sodium (132-148) mmol/L Potassium (3.6-5.2) mmol/L Chloride (98-107) mmol/L Carbon Dioxide (22-30) mmol/L Anion Gap (10-20) BUN (7-17) mg/dL Creatinine (0.7-1.2) mg/dL Est GFR ( Amer) Est GFR (Non-Af Amer) POC Glucose (mg/dL) > 500 H* (65-110) mg/dL Random Glucose (65-105) mg/dL Calcium (8.6-10.4) mg/dl Phosphorus (2.5-4.5) mg/dL Magnesium (1.6-2.3) mg/dL Total Bilirubin (0.2-1.3) mg/dL AST (14-36) U/L ALT (9-52) U/L Alkaline Phosphatase (38-126) U/L Troponin I < 0.0120 (0.00-0.120) ng/mL Total Protein (6.3-8.3) g/dL Albumin (3.5-5.0) g/dL Globulin (2.2-3.9) gm/dL Albumin/Globulin Ratio (1.0-2.1) Venous Blood Potassium (3.6-5.2) mmol/L 11/30/17 11/30/17 11/29/17 Range/Units 11:33 07:24 23:22 WBC (4.8-10.8) K/uL RBC (3.80-5.20) Mil/uL Hgb (11.0-16.0) g/dL Hct (34.0-47.0) % MCV (81.0-99.0) fL MCH (27.0-31.0) pg MCHC (33.0-37.0) g/dL RDW (11.5-14.5) % Plt Count (130-400) K/uL MPV (7.2-11.7) fL Neut % (Auto) (50.0-75.0) % Lymph % (Auto) (20.0-40.0) % Mcnairy % (Auto) (0.0-10.0) % Eos % (Auto) (0.0-4.0) % Baso % (Auto) (0.0-2.0) % Neut # (Auto) (1.8-7.0) K/uL Lymph # (Auto) (1.0-4.3) K/uL Mcnairy # (Auto) (0.0-0.8) K/uL Eos # (Auto) (0.0-0.7) K/uL Baso # (Auto) (0.0-0.2) K/uL pO2 (30-55) mm/Hg VBG pH (7.32-7.43) VBG pCO2 (40-60) mmHg VBG HCO3 mmol/L VBG Total CO2 (22-28) mmol/L VBG O2 Sat (Calc) (40-65) % VBG Base Excess (0.0-2.0) mmol/L VBG Potassium (3.6-5.2) mmol/L Glucose (65-105) mg/dl Lactate (0.7-2.1) mmol/L Crit Value Called To Crit Value Called By Crit Value Read Back Blood Gas Notified Time Sodium (132-148) mmol/L Potassium (3.6-5.2) mmol/L Chloride (98-107) mmol/L Carbon Dioxide (22-30) mmol/L Anion Gap (10-20) BUN (7-17) mg/dL Creatinine (0.7-1.2) mg/dL Est GFR ( Amer) Est GFR (Non-Af Amer) POC Glucose (mg/dL) > 500 H* 459 H* 481 H* (65-110) mg/dL Random Glucose (65-105) mg/dL Calcium (8.6-10.4) mg/dl Phosphorus (2.5-4.5) mg/dL Magnesium (1.6-2.3) mg/dL Total Bilirubin (0.2-1.3) mg/dL AST (14-36) U/L ALT (9-52) U/L Alkaline Phosphatase (38-126) U/L Troponin I (0.00-0.120) ng/mL Total Protein (6.3-8.3) g/dL Albumin (3.5-5.0) g/dL Globulin (2.2-3.9) gm/dL Albumin/Globulin Ratio (1.0-2.1) Venous Blood Potassium (3.6-5.2) mmol/L Laboratory Results - last 24 hr 11/29/17 11/30/17 11/30/17 23:22 07:24 11:33 WBC RBC Hgb Hct MCV MCH MCHC RDW Plt Count MPV Neut % (Auto) Lymph % (Auto) Mcnairy % (Auto) Eos % (Auto) Baso % (Auto) Neut # (Auto) Lymph # (Auto) Mcnairy # (Auto) Eos # (Auto) Baso # (Auto) pO2 VBG pH VBG pCO2 VBG HCO3 VBG Total CO2 VBG O2 Sat (Calc) VBG Base Excess VBG Potassium Glucose Lactate Crit Value Called To Crit Value Called By Crit Value Read Back Blood Gas Notified Time Sodium Potassium Chloride Carbon Dioxide Anion Gap BUN Creatinine Est GFR ( Amer) Est GFR (Non-Af Amer) POC Glucose (mg/dL) 481 H* 459 H* > 500 H* Random Glucose Calcium Phosphorus Magnesium Total Bilirubin AST ALT Alkaline Phosphatase Troponin I Total Protein Albumin Globulin Albumin/Globulin Ratio Venous Blood Potassium 11/30/17 11/30/17 11/30/17 11:44 13:36 14:16 WBC 9.0 D RBC 3.78 L Hgb 12.4 Hct 35.7 MCV 94.4 MCH 32.7 H MCHC 34.7 RDW 13.7 Plt Count 177 MPV 10.3 Neut % (Auto) 81.4 H Lymph % (Auto) 10.7 L Mcnairy % (Auto) 7.7 Eos % (Auto) 0.1 Baso % (Auto) 0.1 Neut # (Auto) 7.3 H Lymph # (Auto) 1.0 Mcnairy # (Auto) 0.7 Eos # (Auto) 0.0 Baso # (Auto) 0.0 pO2 VBG pH VBG pCO2 VBG HCO3 VBG Total CO2 VBG O2 Sat (Calc) VBG Base Excess VBG Potassium Glucose Lactate Crit Value Called To Crit Value Called By Crit Value Read Back Blood Gas Notified Time Sodium Potassium Chloride Carbon Dioxide Anion Gap BUN Creatinine Est GFR ( Amer) Est GFR (Non-Af Amer) POC Glucose (mg/dL) > 500 H* Random Glucose Calcium Phosphorus Magnesium Total Bilirubin AST ALT Alkaline Phosphatase Troponin I < 0.0120 Total Protein Albumin Globulin Albumin/Globulin Ratio Venous Blood Potassium 11/30/17 11/30/17 11/30/17 14:16 14:29 16:08 WBC RBC Hgb Hct MCV MCH MCHC RDW Plt Count MPV Neut % (Auto) Lymph % (Auto) Mcnairy % (Auto) Eos % (Auto) Baso % (Auto) Neut # (Auto) Lymph # (Auto) Mcnairy # (Auto) Eos # (Auto) Baso # (Auto) pO2 32 VBG pH 7.38 VBG pCO2 42 VBG HCO3 23.6 VBG Total CO2 26.1 VBG O2 Sat (Calc) 61.2 VBG Base Excess -0.4 L VBG Potassium 4.0 Glucose 528 H* D Lactate 2.3 H Crit Value Called To Dr olivares Crit Value Called By Jose bolton [facility] Crit Value Read Back Y Blood Gas Notified Time 1435 Sodium 133 134.0 Potassium 3.9 Chloride 98 97.0 L Carbon Dioxide 22 Anion Gap 17 BUN 26 H Creatinine 0.7 Est GFR ( Amer) > 60 Est GFR (Non-Af Amer) > 60 POC Glucose (mg/dL) 408 H* Random Glucose 470 H* D Calcium 8.7 Phosphorus 4.3 Magnesium 1.7 Total Bilirubin 0.6 AST 27 ALT 35 Alkaline Phosphatase 78 Troponin I Total Protein 7.1 Albumin 3.9 Globulin 3.2 Albumin/Globulin Ratio 1.2 Venous Blood Potassium 4.0 EKG/Cardiology Studies: Cardiology / EKG Studies 11/30/17 00:36 ELECTROCARDIOGRAM Stat Comment: Mode Of Transportation: BED Reason For Exam: chest pain 11/30/17 11:32 ELECTROCARDIOGRAM Stat Comment: Mode Of Transportation: PORTABLE Reason For Exam: ACS Critical Care Progress Note - Nutrition Nutrition: Nutrition Category Date Time Status Heart Healthy Diet [DIET] Diets 11/30/17 Breakfast Active Attending/Attestation - Attestation I have personally seen and examined this patient.: Yes I have fully participated in the care of the patient.: Yes I have reviewed all pertinent clinical information: Yes Notes (Text): 11/30/17 17:41 Today: Thursday, November 30, 2017 The Patient was seen and examined at the bedside, Medical records reviewed, and management issues were discussed and formulated with the house staff. I have reviewed all the relevant clinical, laboratory, hemodynamic, radiographic data and medications Events reviewed Agree with above resident's assessment and treatment plans of care as transcribed in Dr. Masterson note.
[2017-11-30 14:24] LABS: BASO % 0.1 % (0.0-2.0); EOS % 0.1 % (0.0-4.0); HEMOGLOBIN 12.4 g/dL (11.0-16.0); LYMPH % 10.7 % (20.0-40.0); MEAN CELL VOLUME 94.4 fL (81.0-99.0); MEAN CORPUSCULAR HEMOGLOBIN 32.7 pg (27.0-31.0); MEAN CORPUSCULAR HGB CONC 34.7 g/dL (33.0-37.0); MEAN PLATELET VOLUME 10.3 fL (7.2-11.7); MONO # 0.7 K/uL (0.0-0.8); MONO % 7.7 % (0.0-10.0); NEUT # 7.3 K/uL (1.8-7.0); NEUT % 81.4 % (50.0-75.0); RBC 3.78 Mil/uL (3.80-5.20); RED CELL DISTRIBUTION WIDTH 13.7 % (11.5-14.5)
[2017-11-30 14:33] LABS: VENOUS BLOOD GAS BASE EXCESS -0.4 mmol/L (0.0-2.0); VENOUS BLOOD GAS PCO2 42 mmHg (40-60); VENOUS BLOOD GAS PO2 32 mm/Hg (30-55); VENOUS BLOOD PH 7.38 (7.32-7.43)
[2017-11-30 14:47] LABS: ALB/GLOB RATIO 1.2 (1.0-2.1); ALBUMIN 3.9 g/dL (3.5-5.0); ALT/SGPT 35 U/L (9-52); AST/SGOT 27 U/L (14-36); BLOOD UREA NITROGEN 26 mg/dL (7-17); CALCIUM 8.7 mg/dl (8.6-10.4); GFR AFRICAN-AMERICAN > 60; GFR NON-AFRICAN AMERICAN > 60
--- NOTE | 2017-11-30 17:20 | CP.PCM.PN ---
Subjective - Date & Time of Evaluation Date of Evaluation: 11/30/17 Time of Evaluation: 12:00 - Subjective Subjective: clinically same no acute distress Objective - Vital Signs/Intake and Output Vital Signs (last 24 hours): Temp Pulse Resp BP Pulse Ox 97.6 F 77 20 127/64 98 11/30/17 16:00 11/30/17 16:00 11/30/17 04:00 11/30/17 15:33 11/30/17 16:00 Intake and Output: 11/30/17 11/30/17 06:59 18:59 Intake Total 250 42 Output Total 600 Balance -350 42 - Medications Medications: Current Medications Acetaminophen (Tylenol 325mg Tab) 650 mg PO Q6 PRN PRN Reason: Pain, moderate (4-7) Last Admin: 11/30/17 00:04 Dose: 650 mg Albuterol/Ipratropium (Duoneb 3 Mg/0.5 Mg (3 Ml) Ud) 3 ml INH RQ6 PRN PRN Reason: Shortness of Breath Aspirin (Aspirin Chewable) 81 mg PO DAILY [facility] Last Admin: 11/30/17 09:30 Dose: 81 mg Clopidogrel Bisulfate (Plavix) 75 mg PO DAILY [facility] Last Admin: 11/30/17 09:30 Dose: 75 mg Famotidine (Pepcid) 20 mg PO DAILY [facility] Last Admin: 11/30/17 09:30 Dose: 20 mg Fluoxetine HCl (Prozac) 40 mg PO DAILY [facility] Last Admin: 11/30/17 09:31 Dose: 40 mg Furosemide (Lasix) 40 mg PO DAILY [facility] Last Admin: 11/30/17 09:30 Dose: 40 mg Gabapentin (Neurontin) 300 mg PO BID [facility] Last Admin: 11/30/17 10:31 Dose: 300 mg Heparin Sodium (Porcine) (Heparin) 5,000 units SC Q8 [facility] Nitroglycerin/Dextrose (Nitroglycerin 50 Mg/250 Ml D5w) 50 mg in 250 mls @ 1.5 mls/hr IV .Q24H [facility]; 5 MCG/MIN PRN Reason: Protocol Last Titration: 11/30/17 11:58 Dose: 20 mcg/min, 6 mls/hr Insulin Aspart (Novolog Mix 70/30 (70/30 Units/Ml)) 10 units SC ACHS [facility] Insulin Detemir (Levemir) 40 unit SC HS [facility] Last Admin: 11/29/17 23:40 Dose: 40 unit Insulin Human Regular (Novolin R) 0 unit SC ACHS [facility] PRN Reason: Protocol Last Admin: 11/30/17 15:33 Dose: 12 u Isosorbide Mononitrate (Imdur Er) 30 mg PO DAILY [facility] Last Admin: 11/30/17 10:31 Dose: 30 mg Lisinopril (Zestril) 5 mg PO DAILY [facility] Metoprolol Succinate (Toprol Xl) 25 mg PO DAILY [facility] Nitroglycerin (Nitrostat Sl Tab) 0.4 mg SL Q5M PRN Last Admin: 11/30/17 00:25 Dose: 0.4 mg Nitroglycerin (Nitro-Bid 2% Oint) 1 ea TOP BID [facility] Last Admin: 11/30/17 09:32 Dose: 1 ea Ranolazine (Ranexa) 1,000 mg PO BID [facility] Rosuvastatin Calcium (Crestor) 10 mg PO [facility] Last Admin: 11/29/17 23:40 Dose: 10 mg - Labs Labs: 11/30/17 14:16 11/30/17 14:16 PT 11.4 SECONDS (9.7-12.2) 11/29/17 06:11 INR 1.0 11/29/17 06:11 APTT 30 SECONDS (21-34) D 11/29/17 06:11 - Constitutional Appears: Well - Head Exam Head Exam: ATRAUMATIC, NORMAL INSPECTION, NORMOCEPHALIC - Eye Exam Eye Exam: EOMI, Normal appearance, PERRL Pupil Exam: NORMAL ACCOMODATION, PERRL - ENT Exam ENT Exam: Mucous Membranes Moist, Normal Exam - Neck Exam Neck Exam: Full ROM, Normal Inspection. absent: Lymphadenopathy - Respiratory Exam Respiratory Exam: Decreased Breath Sounds - Cardiovascular Exam Cardiovascular Exam: REGULAR RHYTHM, +S1, +S2 - GI/Abdominal Exam GI & Abdominal Exam: Soft, Diminished Bowel Sounds - Rectal Exam Rectal Exam: Deferred - Neurological Exam Neurological Exam: Alert, Awake, Oriented x3 Assessment and Plan (1) Unstable angina Status: Acute (2) Abdominal pain Status: Acute (3) Abrasion of face Status: Acute (4) Acute chest pain Status: Acute (5) Acute coronary syndrome Status: Acute (6) Allergic urticaria Status: Acute (7) Anemia Status: Acute (8) Angina at rest Status: Acute (9) Anxiety Status: Acute (10) Arthritis Status: Acute (11) Asthma Status: Acute (12) CAD (coronary artery disease) Status: Acute (13) CHF (congestive heart failure) Status: Acute (14) CHF exacerbation Status: Acute (15) Chest pain Status: Acute (16) Chest pain Status: Acute (17) Cholelithiasis without obstruction Status: Acute (18) Conjunctivitis Status: Acute (19) Diabetes Status: Acute (20) Dizziness Status: Acute (21) Dizziness Status: Acute (22) Dyspnea Status: Acute (23) Dyspnea Status: Acute (24) Elevated LFTs Status: Acute (25) Elevated liver enzymes Status: Acute (26) Elevated troponin Status: Acute (27) Gastroenteritis Status: Acute (28) Generalized edema Status: Acute (29) HTN (hypertension) Status: Acute (30) Headache Status: Acute (31) Hematuria Status: Acute (32) Hypercholesteremia Status: Acute (33) Hyperkalemia Status: Acute (34) Hyperlipemia Status: Acute (35) Knee pain Status: Acute (36) Lip numbness Status: Acute (37) NSTEMI (non-ST elevated myocardial infarction) Status: Acute (38) ESPERANZA (obstructive sleep apnea) Status: Acute (39) Odynophagia Status: Acute (40) Osteoarthritis Status: Acute (41) PFO (patent foramen ovale) Status: Acute (42) Paresthesia Status: Acute (43) Personal history of coronary artery disease Status: Acute (44) Precordial pain Status: Acute (45) Prophylactic measure Status: Acute (46) Psychiatric disorder Status: Acute (47) Shoulder strain Status: Acute (48) TIA (transient ischemic attack) Status: Acute (49) UTI (urinary tract infection) Status: Acute (50) Vaginal candidiasis Status: Acute (51) Wound infection Status: Acute (52) Wrist injury Status: Acute (53) Diabetes type 2, uncontrolled Status: Chronic (54) Status post coronary angioplasty Status: Chronic - Assessment and Plan (Free Text) Plan: trasnfer to [facility] [place] for cath and further work up carmen as ordered follow up with cardio meds reviewed carmen same
[2017-11-30] MEDS: Ranolazine 500 mg Extended Release Tablets PO SCH (17:32)
[2017-11-30] MEDS: Insulin Detemir 100 units/ml Vial (Levemir) SC SCH (21:34)
[2017-12-01 06:23] LABS: BASO % 0.5 % (0.0-2.0); EOS % 0.6 % (0.0-4.0); HEMOGLOBIN 12.2 g/dL (11.0-16.0); LYMPH % 26.6 % (20.0-40.0); MEAN CELL VOLUME 93.1 fL (81.0-99.0); MEAN CORPUSCULAR HEMOGLOBIN 32.8 pg (27.0-31.0); MEAN CORPUSCULAR HGB CONC 35.2 g/dL (33.0-37.0); MEAN PLATELET VOLUME 10.5 fL (7.2-11.7); MONO # 0.8 K/uL (0.0-0.8); MONO % 10.9 % (0.0-10.0); NEUT # 4.5 K/uL (1.8-7.0); NEUT % 61.4 % (50.0-75.0); NRBC % 0.1 % (0.0-2.0); RBC 3.74 Mil/uL (3.80-5.20); RED CELL DISTRIBUTION WIDTH 13.7 % (11.5-14.5); WHITE BLOOD COUNT 7.4 K/uL (4.8-10.8)
[2017-12-01 06:31] LABS: ALB/GLOB RATIO 1.2 (1.0-2.1); CALCIUM 9.1 mg/dl (8.6-10.4); GFR AFRICAN-AMERICAN > 60; GFR NON-AFRICAN AMERICAN > 60
[2017-12-01 06:33] LABS: ALT/SGPT 38 U/L (9-52); AST/SGOT 31 U/L (14-36); BLOOD UREA NITROGEN 28 mg/dL (7-17)
[2017-12-01] MEDS: (Novolog Mix 70/30) Insulin Aspart/Insulin Aspar 100 units/ml SC SCH ×4 (08:00→22:01)
[2017-12-01] MEDS: (Novolin R) Insulin Human Regular 100 units/ml vial SC SCH ×4 (08:00→21:16)
[2017-12-01] MEDS: Ranolazine 500 mg Extended Release Tablets PO SCH ×2 (09:23→17:50)
[2017-12-01] MEDS: Nitroglycerin 2% Ointment Foilpak UD TOP SCH ×2 (09:25→17:50)
[2017-12-01] MEDS ORDERED: Metoprolol Succinate 25 mg XL Tab PO SCH (10:00)
--- NOTE | 2017-12-01 10:54 | CP.CCUPN ---
<Jaelyn Masterson - Last Filed: 12/01/17 10:51> CCU Subjective - Physician Review Subjective (Free Text): Patient seen and examined at bedside. Patient reports no chest pain since yesterday afternoon. 12/01/17 10:53 Disposition: PATIENT TRANSFERRED TO TELEMETRY CCU Objective - Vital Signs / Intake & Output Vital Signs (Last 4 hours): Vital Signs BP 12/01/17 09:24 112/59 L Intake and Output (Last 8hrs): Intake & Output 11/30/17 12/01/17 12/01/17 22:59 06:59 14:59 Intake Total 165 244 3 Output Total 800 1250 Balance -635 -1006 3 Weight 239 lb Intake: Intake, IV Amount 45 24 3 Left Proximal Port 45 Forearm Right Forearm 24 3 Oral 120 220 Output: Urine 800 1250 Urine, Voided 800 1250 Stool 0 - Physical Exam Head: Positive for: Atraumatic, Normocephalic Pupils: Positive for: PERRL Extroacular Muscles: Positive for: EOMI Conjunctiva: Positive for: Normal Mouth: Positive for: Moist Mucous Membranes Respiratory/Chest: Positive for: Clear to Auscultation Cardiovascular: Positive for: Normal S1, S2 Abdomen: Positive for: Normal Bowel Sounds. Negative for: Tenderness, Distention Upper Extremity: Positive for: Normal Inspection, Normal ROM, NORMAL PULSES, Neurovascularly Intact, Capillary Refill < 2s Lower Extremity: Positive for: Normal Inspection, NORMAL PULSES Neurological: Positive for: GCS=15, CN II-XII Intact Skin: Positive for: Warm, Dry, Normal Color Psychiatric: Positive for: Alert, Oriented x 3, Normal Insight - Medications Active Medications: Active Medications Generic Name Dose Route Start Last Admin Trade Name Santinoq PRN Reason Stop Dose Admin Acetaminophen 650 mg 11/28/17 13:47 11/30/17 00:04 Tylenol 325mg Tab PO 650 mg Q6 PRN Administration Pain, moderate (4-7) Albuterol/Ipratropium 3 ml 11/25/17 17:30 Duoneb 3 Mg/0.5 Mg (3 Ml) Ud INH RQ6 PRN Shortness of Breath Aspirin 81 mg 11/26/17 10:00 12/01/17 09:24 Aspirin Chewable PO 81 mg DAILY NARCISA Administration Clopidogrel Bisulfate 75 mg 11/26/17 10:00 12/01/17 09:23 Plavix PO 75 mg DAILY NARCISA Administration Famotidine 20 mg 11/26/17 10:00 12/01/17 09:23 Pepcid PO 20 mg DAILY NARCISA Administration Fluoxetine HCl 40 mg 11/26/17 10:00 12/01/17 09:24 Prozac PO 40 mg DAILY NARCISA Administration Furosemide 40 mg 11/26/17 10:00 12/01/17 09:24 Lasix PO 40 mg DAILY NARCISA Administration Gabapentin 300 mg 11/26/17 18:00 12/01/17 09:34 Neurontin PO 300 mg BID NARCISA Administration Heparin Sodium (Porcine) 5,000 units 11/30/17 22:00 12/01/17 06:42 Heparin SC 5,000 units Q8 NARCISA Administration Insulin Aspart 10 units 11/30/17 16:30 12/01/17 08:00 Novolog Mix 70/30 (70/30 Units/Ml) SC 10 u ACHS NARCISA Administration Insulin Detemir 40 unit 11/26/17 22:00 11/30/17 21:34 Levemir SC 40 unit HS NARCISA Administration Insulin Human Regular 0 unit 11/30/17 13:41 12/01/17 08:00 Novolin R SC 4 u ACHS NARCISA Administration Protocol Isosorbide Mononitrate 30 mg 11/30/17 10:15 12/01/17 09:24 Imdur Er PO 30 mg DAILY NARCISA Administration Lisinopril 5 mg 12/01/17 10:00 12/01/17 09:23 Zestril PO 5 mg DAILY NARCISA Administration Metoprolol Succinate 25 mg 12/01/17 10:00 12/01/17 09:23 Toprol Xl PO 25 mg DAILY NARCISA Administration Nitroglycerin 0.4 mg 11/25/17 19:45 11/30/17 00:25 Nitrostat Sl Tab SL 0.4 mg Q5M PRN Administration Nitroglycerin 1 ea 11/27/17 18:00 12/01/17 09:25 Nitro-Bid 2% Oint TOP Not Given BID [facility] Ranolazine 1,000 mg 11/30/17 18:00 12/01/17 09:23 Ranexa PO 1,000 mg BID [facility] Administration Rosuvastatin Calcium 10 mg 11/25/17 22:00 11/30/17 21:09 Crestor PO 10 mg HS NARCISA Administration - Patient Studies Lab Studies: Lab Studies 12/01/17 12/01/17 12/01/17 Range/Units 07:18 06:07 06:04 WBC 7.4 (4.8-10.8) K/uL RBC 3.74 L (3.80-5.20) Mil/uL Hgb 12.2 (11.0-16.0) g/dL Hct 34.8 (34.0-47.0) % MCV 93.1 (81.0-99.0) fL MCH 32.8 H (27.0-31.0) pg MCHC 35.2 (33.0-37.0) g/dL RDW 13.7 (11.5-14.5) % Plt Count 168 (130-400) K/uL MPV 10.5 (7.2-11.7) fL Neut % (Auto) 61.4 (50.0-75.0) % Lymph % (Auto) 26.6 (20.0-40.0) % [place] % (Auto) 10.9 H (0.0-10.0) % Eos % (Auto) 0.6 (0.0-4.0) % Baso % (Auto) 0.5 (0.0-2.0) % Neut # (Auto) 4.5 (1.8-7.0) K/uL Lymph # (Auto) 2.0 (1.0-4.3) K/uL [place] # (Auto) 0.8 (0.0-0.8) K/uL Eos # (Auto) 0.0 (0.0-0.7) K/uL Baso # (Auto) 0.0 (0.0-0.2) K/uL pO2 (30-55) mm/Hg VBG pH (7.32-7.43) VBG pCO2 (40-60) mmHg VBG HCO3 mmol/L VBG Total CO2 (22-28) mmol/L VBG O2 Sat (Calc) (40-65) % VBG Base Excess (0.0-2.0) mmol/L VBG Potassium (3.6-5.2) mmol/L Glucose (65-105) mg/dl Lactate (0.7-2.1) mmol/L Crit Value Called To Crit Value Called By Crit Value Read Back Blood Gas Notified Time Sodium 132 (132-148) mmol/L Potassium 4.2 (3.6-5.2) mmol/L Chloride 98 (98-107) mmol/L Carbon Dioxide 25 (22-30) mmol/L Anion Gap 13 (10-20) BUN 28 H (7-17) mg/dL Creatinine 0.8 (0.7-1.2) mg/dL Est GFR ( Amer) > 60 Est GFR (Non-Af Amer) > 60 POC Glucose (mg/dL) 234 H (65-110) mg/dL Random Glucose 283 H (65-105) mg/dL Calcium 9.1 (8.6-10.4) mg/dl Phosphorus 4.5 (2.5-4.5) mg/dL Magnesium 1.9 (1.6-2.3) mg/dL Total Bilirubin 0.7 (0.2-1.3) mg/dL AST 31 (14-36) U/L ALT 38 (9-52) U/L Alkaline Phosphatase 70 (38-126) U/L Troponin I (0.00-0.120) ng/mL Total Protein 7.3 (6.3-8.3) g/dL Albumin 4.0 (3.5-5.0) g/dL Globulin 3.3 (2.2-3.9) gm/dL Albumin/Globulin Ratio 1.2 (1.0-2.1) Venous Blood Potassium (3.6-5.2) mmol/L 11/30/17 11/30/17 11/30/17 Range/Units 21:11 16:08 14:29 WBC (4.8-10.8) K/uL RBC (3.80-5.20) Mil/uL Hgb (11.0-16.0) g/dL Hct (34.0-47.0) % MCV (81.0-99.0) fL MCH (27.0-31.0) pg MCHC (33.0-37.0) g/dL RDW (11.5-14.5) % Plt Count (130-400) K/uL MPV (7.2-11.7) fL Neut % (Auto) (50.0-75.0) % Lymph % (Auto) (20.0-40.0) % [place] % (Auto) (0.0-10.0) % Eos % (Auto) (0.0-4.0) % Baso % (Auto) (0.0-2.0) % Neut # (Auto) (1.8-7.0) K/uL Lymph # (Auto) (1.0-4.3) K/uL [place] # (Auto) (0.0-0.8) K/uL Eos # (Auto) (0.0-0.7) K/uL Baso # (Auto) (0.0-0.2) K/uL pO2 32 (30-55) mm/Hg VBG pH 7.38 (7.32-7.43) VBG pCO2 42 (40-60) mmHg VBG HCO3 23.6 mmol/L VBG Total CO2 26.1 (22-28) mmol/L VBG O2 Sat (Calc) 61.2 (40-65) % VBG Base Excess -0.4 L (0.0-2.0) mmol/L VBG Potassium 4.0 (3.6-5.2) mmol/L Glucose 528 H* D (65-105) mg/dl Lactate 2.3 H (0.7-2.1) mmol/L Crit Value Called To Dr olivares Crit Value Called By Jose bolton [facility] Crit Value Read Back Y Blood Gas Notified Time 1435 Sodium 134.0 (132-148) mmol/L Potassium (3.6-5.2) mmol/L Chloride 97.0 L (98-107) mmol/L Carbon Dioxide (22-30) mmol/L Anion Gap (10-20) BUN (7-17) mg/dL Creatinine (0.7-1.2) mg/dL Est GFR ( Amer) Est GFR (Non-Af Amer) POC Glucose (mg/dL) 377 H 408 H* (65-110) mg/dL Random Glucose (65-105) mg/dL Calcium (8.6-10.4) mg/dl Phosphorus (2.5-4.5) mg/dL Magnesium (1.6-2.3) mg/dL Total Bilirubin (0.2-1.3) mg/dL AST (14-36) U/L ALT (9-52) U/L Alkaline Phosphatase (38-126) U/L Troponin I (0.00-0.120) ng/mL Total Protein (6.3-8.3) g/dL Albumin (3.5-5.0) g/dL Globulin (2.2-3.9) gm/dL Albumin/Globulin Ratio (1.0-2.1) Venous Blood Potassium 4.0 (3.6-5.2) mmol/L 11/30/17 11/30/17 11/30/17 Range/Units 14:16 14:16 13:36 WBC 9.0 D (4.8-10.8) K/uL RBC 3.78 L (3.80-5.20) Mil/uL Hgb 12.4 (11.0-16.0) g/dL Hct 35.7 (34.0-47.0) % MCV 94.4 (81.0-99.0) fL MCH 32.7 H (27.0-31.0) pg MCHC 34.7 (33.0-37.0) g/dL RDW 13.7 (11.5-14.5) % Plt Count 177 (130-400) K/uL MPV 10.3 (7.2-11.7) fL Neut % (Auto) 81.4 H (50.0-75.0) % Lymph % (Auto) 10.7 L (20.0-40.0) % [place] % (Auto) 7.7 (0.0-10.0) % Eos % (Auto) 0.1 (0.0-4.0) % Baso % (Auto) 0.1 (0.0-2.0) % Neut # (Auto) 7.3 H (1.8-7.0) K/uL Lymph # (Auto) 1.0 (1.0-4.3) K/uL [place] # (Auto) 0.7 (0.0-0.8) K/uL Eos # (Auto) 0.0 (0.0-0.7) K/uL Baso # (Auto) 0.0 (0.0-0.2) K/uL pO2 (30-55) mm/Hg VBG pH (7.32-7.43) VBG pCO2 (40-60) mmHg VBG HCO3 mmol/L VBG Total CO2 (22-28) mmol/L VBG O2 Sat (Calc) (40-65) % VBG Base Excess (0.0-2.0) mmol/L VBG Potassium (3.6-5.2) mmol/L Glucose (65-105) mg/dl Lactate (0.7-2.1) mmol/L Crit Value Called To Crit Value Called By Crit Value Read Back Blood Gas Notified Time Sodium 133 (132-148) mmol/L Potassium 3.9 (3.6-5.2) mmol/L Chloride 98 (98-107) mmol/L Carbon Dioxide 22 (22-30) mmol/L Anion Gap 17 (10-20) BUN 26 H (7-17) mg/dL Creatinine 0.7 (0.7-1.2) mg/dL Est GFR ( Amer) > 60 Est GFR (Non-Af Amer) > 60 POC Glucose (mg/dL) > 500 H* (65-110) mg/dL Random Glucose 470 H* D (65-105) mg/dL Calcium 8.7 (8.6-10.4) mg/dl Phosphorus 4.3 (2.5-4.5) mg/dL Magnesium 1.7 (1.6-2.3) mg/dL Total Bilirubin 0.6 (0.2-1.3) mg/dL AST 27 (14-36) U/L ALT 35 (9-52) U/L Alkaline Phosphatase 78 (38-126) U/L Troponin I (0.00-0.120) ng/mL Total Protein 7.1 (6.3-8.3) g/dL Albumin 3.9 (3.5-5.0) g/dL Globulin 3.2 (2.2-3.9) gm/dL Albumin/Globulin Ratio 1.2 (1.0-2.1) Venous Blood Potassium (3.6-5.2) mmol/L 11/30/17 11/30/17 Range/Units 11:44 11:33 WBC (4.8-10.8) K/uL RBC (3.80-5.20) Mil/uL Hgb (11.0-16.0) g/dL Hct (34.0-47.0) % MCV (81.0-99.0) fL MCH (27.0-31.0) pg MCHC (33.0-37.0) g/dL RDW (11.5-14.5) % Plt Count (130-400) K/uL MPV (7.2-11.7) fL Neut % (Auto) (50.0-75.0) % Lymph % (Auto) (20.0-40.0) % [place] % (Auto) (0.0-10.0) % Eos % (Auto) (0.0-4.0) % Baso % (Auto) (0.0-2.0) % Neut # (Auto) (1.8-7.0) K/uL Lymph # (Auto) (1.0-4.3) K/uL [place] # (Auto) (0.0-0.8) K/uL Eos # (Auto) (0.0-0.7) K/uL Baso # (Auto) (0.0-0.2) K/uL pO2 (30-55) mm/Hg VBG pH (7.32-7.43) VBG pCO2 (40-60) mmHg VBG HCO3 mmol/L VBG Total CO2 (22-28) mmol/L VBG O2 Sat (Calc) (40-65) % VBG Base Excess (0.0-2.0) mmol/L VBG Potassium (3.6-5.2) mmol/L Glucose (65-105) mg/dl Lactate (0.7-2.1) mmol/L Crit Value Called To Crit Value Called By Crit Value Read Back Blood Gas Notified Time Sodium (132-148) mmol/L Potassium (3.6-5.2) mmol/L Chloride (98-107) mmol/L Carbon Dioxide (22-30) mmol/L Anion Gap (10-20) BUN (7-17) mg/dL Creatinine (0.7-1.2) mg/dL Est GFR ( Amer) Est GFR (Non-Af Amer) POC Glucose (mg/dL) > 500 H* (65-110) mg/dL Random Glucose (65-105) mg/dL Calcium (8.6-10.4) mg/dl Phosphorus (2.5-4.5) mg/dL Magnesium (1.6-2.3) mg/dL Total Bilirubin (0.2-1.3) mg/dL AST (14-36) U/L ALT (9-52) U/L Alkaline Phosphatase (38-126) U/L Troponin I < 0.0120 (0.00-0.120) ng/mL Total Protein (6.3-8.3) g/dL Albumin (3.5-5.0) g/dL Globulin (2.2-3.9) gm/dL Albumin/Globulin Ratio (1.0-2.1) Venous Blood Potassium (3.6-5.2) mmol/L Laboratory Results - last 24 hr 11/30/17 11/30/17 11/30/17 11:33 11:44 13:36 WBC RBC Hgb Hct MCV MCH MCHC RDW Plt Count MPV Neut % (Auto) Lymph % (Auto) [place] % (Auto) Eos % (Auto) Baso % (Auto) Neut # (Auto) Lymph # (Auto) [place] # (Auto) Eos # (Auto) Baso # (Auto) pO2 VBG pH VBG pCO2 VBG HCO3 VBG Total CO2 VBG O2 Sat (Calc) VBG Base Excess VBG Potassium Glucose Lactate Crit Value Called To Crit Value Called By Crit Value Read Back Blood Gas Notified Time Sodium Potassium Chloride Carbon Dioxide Anion Gap BUN Creatinine Est GFR ( Amer) Est GFR (Non-Af Amer) POC Glucose (mg/dL) > 500 H* > 500 H* Random Glucose Calcium Phosphorus Magnesium Total Bilirubin AST ALT Alkaline Phosphatase Troponin I < 0.0120 Total Protein Albumin Globulin Albumin/Globulin Ratio Venous Blood Potassium 11/30/17 11/30/17 11/30/17 14:16 14:16 14:29 WBC 9.0 D RBC 3.78 L Hgb 12.4 Hct 35.7 MCV 94.4 MCH 32.7 H MCHC 34.7 RDW 13.7 Plt Count 177 MPV 10.3 Neut % (Auto) 81.4 H Lymph % (Auto) 10.7 L [place] % (Auto) 7.7 Eos % (Auto) 0.1 Baso % (Auto) 0.1 Neut # (Auto) 7.3 H Lymph # (Auto) 1.0 [place] # (Auto) 0.7 Eos # (Auto) 0.0 Baso # (Auto) 0.0 pO2 32 VBG pH 7.38 VBG pCO2 42 VBG HCO3 23.6 VBG Total CO2 26.1 VBG O2 Sat (Calc) 61.2 VBG Base Excess -0.4 L VBG Potassium 4.0 Glucose 528 H* D Lactate 2.3 H Crit Value Called To Dr olivares Crit Value Called By Jose bolton [facility] Crit Value Read Back Y Blood Gas Notified Time 1435 Sodium 133 134.0 Potassium 3.9 Chloride 98 97.0 L Carbon Dioxide 22 Anion Gap 17 BUN 26 H Creatinine 0.7 Est GFR ( Amer) > 60 Est GFR (Non-Af Amer) > 60 POC Glucose (mg/dL) Random Glucose 470 H* D Calcium 8.7 Phosphorus 4.3 Magnesium 1.7 Total Bilirubin 0.6 AST 27 ALT 35 Alkaline Phosphatase 78 Troponin I Total Protein 7.1 Albumin 3.9 Globulin 3.2 Albumin/Globulin Ratio 1.2 Venous Blood Potassium 4.0 11/30/17 11/30/17 12/01/17 16:08 21:11 06:04 WBC RBC Hgb Hct MCV MCH MCHC RDW Plt Count MPV Neut % (Auto) Lymph % (Auto) [place] % (Auto) Eos % (Auto) Baso % (Auto) Neut # (Auto) Lymph # (Auto) [place] # (Auto) Eos # (Auto) Baso # (Auto) pO2 VBG pH VBG pCO2 VBG HCO3 VBG Total CO2 VBG O2 Sat (Calc) VBG Base Excess VBG Potassium Glucose Lactate Crit Value Called To Crit Value Called By Crit Value Read Back Blood Gas Notified Time Sodium 132 Potassium 4.2 Chloride 98 Carbon Dioxide 25 Anion Gap 13 BUN 28 H Creatinine 0.8 Est GFR ( Amer) > 60 Est GFR (Non-Af Amer) > 60 POC Glucose (mg/dL) 408 H* 377 H Random Glucose 283 H Calcium 9.1 Phosphorus 4.5 Magnesium 1.9 Total Bilirubin 0.7 AST 31 ALT 38 Alkaline Phosphatase 70 Troponin I Total Protein 7.3 Albumin 4.0 Globulin 3.3 Albumin/Globulin Ratio 1.2 Venous Blood Potassium 12/01/17 12/01/17 06:07 07:18 WBC 7.4 RBC 3.74 L Hgb 12.2 Hct 34.8 MCV 93.1 MCH 32.8 H MCHC 35.2 RDW 13.7 Plt Count 168 MPV 10.5 Neut % (Auto) 61.4 Lymph % (Auto) 26.6 [place] % (Auto) 10.9 H Eos % (Auto) 0.6 Baso % (Auto) 0.5 Neut # (Auto) 4.5 Lymph # (Auto) 2.0 [place] # (Auto) 0.8 Eos # (Auto) 0.0 Baso # (Auto) 0.0 pO2 VBG pH VBG pCO2 VBG HCO3 VBG Total CO2 VBG O2 Sat (Calc) VBG Base Excess VBG Potassium Glucose Lactate Crit Value Called To Crit Value Called By Crit Value Read Back Blood Gas Notified Time Sodium Potassium Chloride Carbon Dioxide Anion Gap BUN Creatinine Est GFR ( Amer) Est GFR (Non-Af Amer) POC Glucose (mg/dL) 234 H Random Glucose Calcium Phosphorus Magnesium Total Bilirubin AST ALT Alkaline Phosphatase Troponin I Total Protein Albumin Globulin Albumin/Globulin Ratio Venous Blood Potassium EKG/Cardiology Studies: Cardiology / EKG Studies 11/30/17 11:32 ELECTROCARDIOGRAM Stat Comment: Mode Of Transportation: PORTABLE Reason For Exam: ACS Fingerstick Blood Sugar Results: 234 Critical Care Progress Note - Nutrition Nutrition: Nutrition Category Date Time Status Heart Healthy Diet [DIET] Diets 11/30/17 Breakfast Active Assessment/Plan - Assessment and Plan (Free Text) Assessment: This is a 52 year old female with PMHx of CAD with CABG x 4 vessels in 2008, with recent stent placement in [place] 09/2017, Left Carotid Stenosis 60-70%, HTN, HF with preservedEF (LVEF50%), ESPERANZA, Asthma, T2DM- uncontrolled with A1C 10.3, Hx CVA, Anxiety admitted to ICU for Unstable Angina s/p cardiac cath occulusions noted medical management only. Placed back on ICU due to chest pain - placed on nitro drip - currently asymptomatic. Plan: Neuro: AAOX3 GCS 15 A: Hx CVA - Started Crestor Cardio: A: Unstable Angina - Patient evaluated by Dr. Clay on 11/04/17: Stress test showed: "Evidence of lateral and apical ischemia. The patient has small vessel disease of the obtuse marginals which likely accounts for the ischemia. These lesions are too small for intervention. Patient needs Ranexa 1000mg BID. This will prevent angina and reduce her hospitalizations". - ECHO (11/05/17): EF 50%, LV fxn normal. No AR, MR, TR, PVR. - Troponins negative x 2 - EKG: initial in ED had NEW DEPRESSIONS I, V4-6 COMPARED 11/03/2017, repeat after nitro had resolved ST depressions, NSR @ 87 BPM - S/P cardiac cath - occlusions noted; only medical management - Started on ASA, Plavix, Ranexa, Nitrostat, Imdur 30mg - Persistent chest pain - started on nitro drip 11/30/17 - currently off drip- asymptomatic A: CAD - s/p CABG x4 in 2008 - 10/23/17: Carotid duplex - R side clear. L side 60-70% stenosis of the L proximal internal carotid. - s/p stent of the circumflex several wks ago. A: Diastolic HFpEF - I/O, daily weights, Fluid restriction - ECHO (11/05/17): EF 50%, LV fxn normal. No AR, MR, TR, PVR. - Repeat ECHO: LVEF 45-50% - BNP - 260 A: Carotid Stenosis - 10/27: Head/Neck CTA 10/27- 1. Significant stenosis of left carotid bifurcation/ proximal left internal carotid artery estimated at approximately 60-70%. 2. There are calcified plaque changes also seen within both cavernous carotid and the distal vertebral arteries with the significant stenosis of the right cavernous carotid and left vertebral artery. See full report. 10/26: Carotid duplex - R side clear. L side 60-70% stenosis of the L proximal internal carotid. see full report. Patient for CT angio tomorrow morning at 8am. Patient has a seafood allergy. Per Dr. Stauffer's recommendation, patient will be following protocol for allergy - Prednisone 50mg PO at 13hrs, 6hrs, and 1hr before contrast. Benadryl 50mg PO 1hr before contrast. Patient will followup with Dr. Stauffer to have MRI/MRA performed as outpatient. 10/25: MRI not performed because pt had cardiac stent placed several wks ago. A: HTN - Patient was controlled prior without medications - Started on Lisinopril 5 mg PO (renal protection), Metoprolol 25mg daily, lasix 40mg Pulm: A: Asthma - Duonebs PRN - Claritin 10mg A: ESPERANZA - CPAP at night Endo: A: Uncontrolled T2DM - Last A1c (10/29/17): 11.2 --> 11/25/17 10.3 - Accuchecks - Resumed: Levemir 40 units HS, Novolin 70/30 10 units ACHS, ISS- high - Started Crestor 10mg, Lisinopril 5 mg PO, Metoprolol 25 daily - Carb consistent Diet Psych: A: Anxiety - Continue Prozac Prophylaxis - Protonix - SCDs, Heparin Q8H - Patient has Iodine allergy - will need to premedicate prior to any contrast Disposition: PATIENT TRANSFERRED TO TELEMETRY DW Dr. Kidd, Jaelyn Masterson DO, PGY-1 <Bryce Kidd - Last Filed: 12/01/17 17:55> CCU Objective - Vital Signs / Intake & Output Vital Signs (Last 4 hours): Vital Signs Pulse Resp BP 12/01/17 14:33 71 13 101/58 L 12/01/17 14:00 61 16 Intake and Output (Last 8hrs): Intake & Output 12/01/17 12/01/17 12/01/17 06:59 14:59 22:59 Intake Total 244 752 100 Output Total 1250 650 300 Balance -1006 102 -200 Weight 239 lb Intake: Intake, IV Amount 24 12 0 Left Forearm 6 0 Right Forearm 24 6 Oral 220 740 100 Output: Urine 1250 650 300 Urine, Voided 1250 650 300 Stool 0 Urine/Stool Mix 0 0 Emesis 0 Other: # Bowel Movements 0 0 - Medications Active Medications: Active Medications Generic Name Dose Route Start Last Admin Trade Name Freq PRN Reason Stop Dose Admin Acetaminophen 650 mg 11/28/17 13:47 12/01/17 12:14 Tylenol 325mg Tab PO 650 mg Q6 PRN Administration Pain, moderate (4-7) Albuterol/Ipratropium 3 ml 11/25/17 17:30 Duoneb 3 Mg/0.5 Mg (3 Ml) Ud INH RQ6 PRN Shortness of Breath Aspirin 81 mg 11/26/17 10:00 12/01/17 09:24 Aspirin Chewable PO 81 mg DAILY NARCISA Administration Clopidogrel Bisulfate 75 mg 11/26/17 10:00 12/01/17 09:23 Plavix PO 75 mg DAILY NARCISA Administration Famotidine 20 mg 11/26/17 10:00 12/01/17 09:23 Pepcid PO 20 mg DAILY NARCISA Administration Fluoxetine HCl 40 mg 11/26/17 10:00 12/01/17 09:24 Prozac PO 40 mg DAILY NARCISA Administration Furosemide 40 mg 11/26/17 10:00 12/01/17 09:24 Lasix PO 40 mg DAILY NARCISA Administration Gabapentin 300 mg 11/26/17 18:00 12/01/17 09:34 Neurontin PO 300 mg BID NARCISA Administration Heparin Sodium (Porcine) 5,000 units 11/30/17 22:00 12/01/17 14:34 Heparin SC 5,000 units Q8 NARCISA Administration Insulin Aspart 10 units 11/30/17 16:30 12/01/17 16:30 Novolog Mix 70/30 (70/30 Units/Ml) SC 10 u ACHS [facility] Administration Insulin Detemir 40 unit 11/26/17 22:00 11/30/17 21:34 Levemir SC 40 unit HS [facility] Administration Insulin Human Regular 0 unit 11/30/17 13:41 12/01/17 16:21 Novolin R SC Not Given ACHS [facility] Protocol Isosorbide Mononitrate 30 mg 11/30/17 10:15 12/01/17 09:24 Imdur Er PO 30 mg DAILY [facility] Administration Lisinopril 5 mg 12/01/17 10:00 12/01/17 09:23 Zestril PO 5 mg DAILY [facility] Administration Metoprolol Succinate 25 mg 12/01/17 22:00 Toprol Xl PO Q12 [facility] Nitroglycerin 0.4 mg 11/25/17 19:45 11/30/17 00:25 Nitrostat Sl Tab SL 0.4 mg Q5M PRN Administration Nitroglycerin 1 ea 11/27/17 18:00 12/01/17 09:25 Nitro-Bid 2% Oint TOP Not Given BID [facility] Ranolazine 1,000 mg 11/30/17 18:00 12/01/17 09:23 Ranexa PO 1,000 mg BID NARCISA Administration Rosuvastatin Calcium 10 mg 11/25/17 22:00 11/30/17 21:09 Crestor PO 10 mg HS [facility] Administration - Patient Studies Lab Studies: Lab Studies 12/01/17 12/01/17 12/01/17 Range/Units 16:09 11:38 07:18 WBC (4.8-10.8) K/uL RBC (3.80-5.20) Mil/uL Hgb (11.0-16.0) g/dL Hct (34.0-47.0) % MCV (81.0-99.0) fL MCH (27.0-31.0) pg MCHC (33.0-37.0) g/dL RDW (11.5-14.5) % Plt Count (130-400) K/uL MPV (7.2-11.7) fL Neut % (Auto) (50.0-75.0) % Lymph % (Auto) (20.0-40.0) % [place] % (Auto) (0.0-10.0) % Eos % (Auto) (0.0-4.0) % Baso % (Auto) (0.0-2.0) % Neut # (Auto) (1.8-7.0) K/uL Lymph # (Auto) (1.0-4.3) K/uL [place] # (Auto) (0.0-0.8) K/uL Eos # (Auto) (0.0-0.7) K/uL Baso # (Auto) (0.0-0.2) K/uL Sodium (132-148) mmol/L Potassium (3.6-5.2) mmol/L Chloride (98-107) mmol/L Carbon Dioxide (22-30) mmol/L Anion Gap (10-20) BUN (7-17) mg/dL Creatinine (0.7-1.2) mg/dL Est GFR ( Amer) Est GFR (Non-Af Amer) POC Glucose (mg/dL) 138 H 204 H 234 H (65-110) mg/dL Random Glucose (65-105) mg/dL Calcium (8.6-10.4) mg/dl Phosphorus (2.5-4.5) mg/dL Magnesium (1.6-2.3) mg/dL Total Bilirubin (0.2-1.3) mg/dL AST (14-36) U/L ALT (9-52) U/L Alkaline Phosphatase (38-126) U/L Total Protein (6.3-8.3) g/dL Albumin (3.5-5.0) g/dL Globulin (2.2-3.9) gm/dL Albumin/Globulin Ratio (1.0-2.1) 12/01/17 12/01/17 11/30/17 Range/Units 06:07 06:04 21:11 WBC 7.4 (4.8-10.8) K/uL RBC 3.74 L (3.80-5.20) Mil/uL Hgb 12.2 (11.0-16.0) g/dL Hct 34.8 (34.0-47.0) % MCV 93.1 (81.0-99.0) fL MCH 32.8 H (27.0-31.0) pg MCHC 35.2 (33.0-37.0) g/dL RDW 13.7 (11.5-14.5) % Plt Count 168 (130-400) K/uL MPV 10.5 (7.2-11.7) fL Neut % (Auto) 61.4 (50.0-75.0) % Lymph % (Auto) 26.6 (20.0-40.0) % [place] % (Auto) 10.9 H (0.0-10.0) % Eos % (Auto) 0.6 (0.0-4.0) % Baso % (Auto) 0.5 (0.0-2.0) % Neut # (Auto) 4.5 (1.8-7.0) K/uL Lymph # (Auto) 2.0 (1.0-4.3) K/uL [place] # (Auto) 0.8 (0.0-0.8) K/uL Eos # (Auto) 0.0 (0.0-0.7) K/uL Baso # (Auto) 0.0 (0.0-0.2) K/uL Sodium 132 (132-148) mmol/L Potassium 4.2 (3.6-5.2) mmol/L Chloride 98 (98-107) mmol/L Carbon Dioxide 25 (22-30) mmol/L Anion Gap 13 (10-20) BUN 28 H (7-17) mg/dL Creatinine 0.8 (0.7-1.2) mg/dL Est GFR ( Amer) > 60 Est GFR (Non-Af Amer) > 60 POC Glucose (mg/dL) 377 H (65-110) mg/dL Random Glucose 283 H (65-105) mg/dL Calcium 9.1 (8.6-10.4) mg/dl Phosphorus 4.5 (2.5-4.5) mg/dL Magnesium 1.9 (1.6-2.3) mg/dL Total Bilirubin 0.7 (0.2-1.3) mg/dL AST 31 (14-36) U/L ALT 38 (9-52) U/L Alkaline Phosphatase 70 (38-126) U/L Total Protein 7.3 (6.3-8.3) g/dL Albumin 4.0 (3.5-5.0) g/dL Globulin 3.3 (2.2-3.9) gm/dL Albumin/Globulin Ratio 1.2 (1.0-2.1) Laboratory Results - last 24 hr 11/30/17 12/01/17 12/01/17 21:11 06:04 06:07 WBC 7.4 RBC 3.74 L Hgb 12.2 Hct 34.8 MCV 93.1 MCH 32.8 H MCHC 35.2 RDW 13.7 Plt Count 168 MPV 10.5 Neut % (Auto) 61.4 Lymph % (Auto) 26.6 [place] % (Auto) 10.9 H Eos % (Auto) 0.6 Baso % (Auto) 0.5 Neut # (Auto) 4.5 Lymph # (Auto) 2.0 [place] # (Auto) 0.8 Eos # (Auto) 0.0 Baso # (Auto) 0.0 Sodium 132 Potassium 4.2 Chloride 98 Carbon Dioxide 25 Anion Gap 13 BUN 28 H Creatinine 0.8 Est GFR ( Amer) > 60 Est GFR (Non-Af Amer) > 60 POC Glucose (mg/dL) 377 H Random Glucose 283 H Calcium 9.1 Phosphorus 4.5 Magnesium 1.9 Total Bilirubin 0.7 AST 31 ALT 38 Alkaline Phosphatase 70 Total Protein 7.3 Albumin 4.0 Globulin 3.3 Albumin/Globulin Ratio 1.2 12/01/17 12/01/17 12/01/17 07:18 11:38 16:09 WBC RBC Hgb Hct MCV MCH MCHC RDW Plt Count MPV Neut % (Auto) Lymph % (Auto) [place] % (Auto) Eos % (Auto) Baso % (Auto) Neut # (Auto) Lymph # (Auto) [place] # (Auto) Eos # (Auto) Baso # (Auto) Sodium Potassium Chloride Carbon Dioxide Anion Gap BUN Creatinine Est GFR ( Amer) Est GFR (Non-Af Amer) POC Glucose (mg/dL) 234 H 204 H 138 H Random Glucose Calcium Phosphorus Magnesium Total Bilirubin AST ALT Alkaline Phosphatase Total Protein Albumin Globulin Albumin/Globulin Ratio Critical Care Progress Note - Nutrition Nutrition: Nutrition Category Date Time Status Heart Healthy Diet [DIET] Diets 11/30/17 Breakfast Active Attending/Attestation - Attestation I have personally seen and examined this patient.: Yes I have fully participated in the care of the patient.: Yes I have reviewed all pertinent clinical information: Yes Notes (Text): 12/01/17 17:49 Patient seen and examined in the intensive care unit. This is a 52 year old female with PMHx of CAD with CABG x 4 vessels in 2008, with recent stent placement in LCX 09/2017, Left Carotid Stenosis 60-70%, HTN, HF with preservedEF (LVEF50%), ESPERANZA, Asthma, T2DM- uncontrolled with A1C 10.3, Hx CVA, Anxiety admitted to ICU for Unstable Angina s/p cardiac cath occulusions noted medical management only. stable for transfer to floor taper off IV nitrates
--- NOTE | 2017-12-01 13:25 | CP.PCM.PN ---
Subjective - Date & Time of Evaluation Date of Evaluation: 11/30/17 Time of Evaluation: 11:00 - Subjective Subjective: PT WITH CONTINUED CP. Objective - Vital Signs/Intake and Output Vital Signs (last 24 hours): Temp Pulse Resp BP Pulse Ox 98.3 F 69 20 112/59 L 98 12/01/17 04:00 11/30/17 18:32 12/01/17 04:00 12/01/17 09:24 12/01/17 04:00 Intake and Output: 12/01/17 12/01/17 06:59 18:59 Intake Total 253 3 Output Total 1250 Balance -997 3 - Medications Medications: Current Medications Acetaminophen (Tylenol 325mg Tab) 650 mg PO Q6 PRN PRN Reason: Pain, moderate (4-7) Last Admin: 12/01/17 12:14 Dose: 650 mg Albuterol/Ipratropium (Duoneb 3 Mg/0.5 Mg (3 Ml) Ud) 3 ml INH RQ6 PRN PRN Reason: Shortness of Breath Aspirin (Aspirin Chewable) 81 mg PO DAILY [facility] Last Admin: 12/01/17 09:24 Dose: 81 mg Clopidogrel Bisulfate (Plavix) 75 mg PO DAILY [facility] Last Admin: 12/01/17 09:23 Dose: 75 mg Famotidine (Pepcid) 20 mg PO DAILY [facility] Last Admin: 12/01/17 09:23 Dose: 20 mg Fluoxetine HCl (Prozac) 40 mg PO DAILY [facility] Last Admin: 12/01/17 09:24 Dose: 40 mg Furosemide (Lasix) 40 mg PO DAILY [facility] Last Admin: 12/01/17 09:24 Dose: 40 mg Gabapentin (Neurontin) 300 mg PO BID [facility] Last Admin: 12/01/17 09:34 Dose: 300 mg Heparin Sodium (Porcine) (Heparin) 5,000 units SC Q8 [facility] Last Admin: 12/01/17 06:42 Dose: 5,000 units Insulin Aspart (Novolog Mix 70/30 (70/30 Units/Ml)) [address] [facility] Last Admin: 12/01/17 12:23 Dose: 10 u Insulin Detemir (Levemir) 40 unit SC HS [facility] Last Admin: 11/30/17 21:34 Dose: 40 unit Insulin Human Regular (Novolin R) [address] [facility] PRN Reason: Protocol Last Admin: 12/01/17 12:16 Dose: 4 u Isosorbide Mononitrate (Imdur Er) 30 mg PO DAILY [facility] Last Admin: 12/01/17 09:24 Dose: 30 mg Lisinopril (Zestril) 5 mg PO DAILY [facility] Last Admin: 12/01/17 09:23 Dose: 5 mg Metoprolol Succinate (Toprol Xl) 25 mg PO DAILY [facility] Last Admin: 12/01/17 09:23 Dose: 25 mg Nitroglycerin (Nitrostat Sl Tab) 0.4 mg SL Q5M PRN Last Admin: 11/30/17 00:25 Dose: 0.4 mg Nitroglycerin (Nitro-Bid 2% Oint) 1 ea TOP BID [facility] Last Admin: 12/01/17 09:25 Dose: Not Given Ranolazine (Ranexa) 1,000 mg PO BID [facility] Last Admin: 12/01/17 09:23 Dose: 1,000 mg Rosuvastatin Calcium (Crestor) 10 mg PO HS [facility] Last Admin: 11/30/17 21:09 Dose: 10 mg - Labs Labs: 12/01/17 06:07 12/01/17 06:04 PT 11.4 SECONDS (9.7-12.2) 11/29/17 06:11 INR 1.0 11/29/17 06:11 APTT 30 SECONDS (21-34) D 11/29/17 06:11 - Constitutional Appears: Well - Head Exam Head Exam: ATRAUMATIC, NORMAL INSPECTION, NORMOCEPHALIC - Eye Exam Eye Exam: EOMI, Normal appearance, PERRL. absent: Conjunctival injection, Nystagmus, Periorbital swelling, Periorbital tenderness, Scleral icterus Pupil Exam: NORMAL ACCOMODATION, PERRL - ENT Exam ENT Exam: Mucous Membranes Moist, Normal Exam. absent: Mucous Membranes Dry, Normal External Ear Exam, Normal Oropharynx, TM's Normal Bilaterally - Neck Exam Neck Exam: Full ROM, Normal Inspection. absent: Lymphadenopathy - Respiratory Exam Respiratory Exam: Clear to Ausculation Bilateral, NORMAL BREATHING PATTERN. absent: Accessory Muscle Use, Chest Wall Tenderness, Decreased Breath Sounds, Prolonged Expiratory Phase, Rales, Rhonchi, Wheezes, Respiratory Distress, Stridor - Cardiovascular Exam Cardiovascular Exam: REGULAR RHYTHM, +S1, +S2, Murmur. absent: Bradycardia, Tachycardia, Clicks, Diastolic murmur, Gallop, Irregular Rhythm, JVD, RRR, Rubs , +S4 - GI/Abdominal Exam GI & Abdominal Exam: Soft, Normal Bowel Sounds. absent: Bruit, Distended, Firm , Guarding, Rigid, Tenderness, Diminished Bowel Sounds, Hernia, Hyperactive Bowel Sounds, Hypoactive Bowel Sounds, Organomegaly, Pulsatile Mass, Rebound, Mass - Rectal Exam Rectal Exam: Deferred - Extremities Exam Extremities Exam: Full ROM, Normal Capillary Refill, Normal Inspection. absent : Calf Tenderness, Joint Swelling, Pedal Edema, Tenderness - Back Exam Back Exam: NORMAL INSPECTION. absent: CVA tenderness (L), CVA tenderness (R), Full ROM, muscle spasm, paraspinal tenderness, rash noted, tenderness, vertebral tenderness - Neurological Exam Neurological Exam: Alert, Awake, CN II-XII Intact, Normal Gait, Oriented x3 - Psychiatric Exam Psychiatric exam: Normal Affect, Normal Mood. absent: Agitated, Anxious, Depressed, Flat Affect, Homicidal Ideation, Manic, Suicidal Ideation - Skin Skin Exam: Dry, Intact, Normal Color, Warm. absent: Abrasion, Cyanosis, Diaphoretic, Erythema, Mottled, Pallor, Pallor, Petechiae, Rash, Urticaria, Vesicles Assessment and Plan (1) Acute coronary syndrome Status: Acute (2) Angina at rest Status: Acute (3) Anxiety Status: Acute (4) CAD (coronary artery disease) Status: Acute (5) CHF (congestive heart failure) Status: Acute (6) Chest pain Status: Acute (7) Diabetes Status: Acute (8) Elevated troponin Status: Acute (9) HTN (hypertension) Status: Acute (10) Hypercholesteremia Status: Acute (11) Hyperlipemia Status: Acute - Assessment and Plan (Free Text) Plan: WILL REVIEW PRIOR CARDIAC HISTORY AND TITRATE MEDICATIONS FOR ANGINA. CONSIDERATION FOR NONCARDIAC CP SHOULD BE GIVEN.
--- NOTE | 2017-12-01 13:25 | CP.PCM.PN ---
Subjective - Date & Time of Evaluation Date of Evaluation: 12/01/17 Time of Evaluation: 13:25 - Subjective Subjective: CONTINUED CP. SOME MUSCULOSKELETAL ASPECTS. Objective - Vital Signs/Intake and Output Vital Signs (last 24 hours): Temp Pulse Resp BP Pulse Ox 98.3 F 69 20 112/59 L 98 12/01/17 04:00 11/30/17 18:32 12/01/17 04:00 12/01/17 09:24 12/01/17 04:00 Intake and Output: 12/01/17 12/01/17 06:59 18:59 Intake Total 253 3 Output Total 1250 Balance -997 3 - Medications Medications: Current Medications Acetaminophen (Tylenol 325mg Tab) 650 mg PO Q6 PRN PRN Reason: Pain, moderate (4-7) Last Admin: 12/01/17 12:14 Dose: 650 mg Albuterol/Ipratropium (Duoneb 3 Mg/0.5 Mg (3 Ml) Ud) 3 ml INH RQ6 PRN PRN Reason: Shortness of Breath Aspirin (Aspirin Chewable) 81 mg PO DAILY [facility] Last Admin: 12/01/17 09:24 Dose: 81 mg Clopidogrel Bisulfate (Plavix) 75 mg PO DAILY [facility] Last Admin: 12/01/17 09:23 Dose: 75 mg Famotidine (Pepcid) 20 mg PO DAILY [facility] Last Admin: 12/01/17 09:23 Dose: 20 mg Fluoxetine HCl (Prozac) 40 mg PO DAILY [facility] Last Admin: 12/01/17 09:24 Dose: 40 mg Furosemide (Lasix) 40 mg PO DAILY [facility] Last Admin: 12/01/17 09:24 Dose: 40 mg Gabapentin (Neurontin) 300 mg PO BID [facility] Last Admin: 12/01/17 09:34 Dose: 300 mg Heparin Sodium (Porcine) (Heparin) 5,000 units SC Q8 [facility] Last Admin: 12/01/17 06:42 Dose: 5,000 units Insulin Aspart (Novolog Mix 70/30 (70/30 Units/Ml)) 10 units SC [facility] Last Admin: 12/01/17 12:23 Dose: 10 u Insulin Detemir (Levemir) 40 unit SC HS [facility] Last Admin: 11/30/17 21:34 Dose: 40 unit Insulin Human Regular (Novolin R) 0 unit SC [facility] PRN Reason: Protocol Last Admin: 12/01/17 12:16 Dose: 4 u Isosorbide Mononitrate (Imdur Er) 30 mg PO DAILY [facility] Last Admin: 12/01/17 09:24 Dose: 30 mg Lisinopril (Zestril) 5 mg PO DAILY [facility] Last Admin: 12/01/17 09:23 Dose: 5 mg Metoprolol Succinate (Toprol Xl) 25 mg PO DAILY [facility] Last Admin: 12/01/17 09:23 Dose: 25 mg Nitroglycerin (Nitrostat Sl Tab) 0.4 mg SL Q5M PRN Last Admin: 11/30/17 00:25 Dose: 0.4 mg Nitroglycerin (Nitro-Bid 2% Oint) 1 ea TOP BID [facility] Last Admin: 12/01/17 09:25 Dose: Not Given Ranolazine (Ranexa) 1,000 mg PO BID [facility] Last Admin: 12/01/17 09:23 Dose: 1,000 mg Rosuvastatin Calcium (Crestor) 10 mg PO HS [facility] Last Admin: 11/30/17 21:09 Dose: 10 mg - Labs Labs: 12/01/17 06:07 12/01/17 06:04 PT 11.4 SECONDS (9.7-12.2) 11/29/17 06:11 INR 1.0 11/29/17 06:11 APTT 30 SECONDS (21-34) D 11/29/17 06:11 - Constitutional Appears: Well - Head Exam Head Exam: ATRAUMATIC, NORMAL INSPECTION, NORMOCEPHALIC - Eye Exam Eye Exam: EOMI, Normal appearance, PERRL. absent: Conjunctival injection, Nystagmus, Periorbital swelling, Periorbital tenderness, Scleral icterus Pupil Exam: NORMAL ACCOMODATION, PERRL - ENT Exam ENT Exam: Mucous Membranes Moist, Normal Exam. absent: Mucous Membranes Dry, Normal External Ear Exam, Normal Oropharynx, TM's Normal Bilaterally - Neck Exam Neck Exam: Full ROM, Normal Inspection. absent: Lymphadenopathy, Meningismus, Tenderness, Thyromegaly - Respiratory Exam Respiratory Exam: Clear to Ausculation Bilateral, NORMAL BREATHING PATTERN. absent: Accessory Muscle Use, Chest Wall Tenderness, Decreased Breath Sounds, Prolonged Expiratory Phase, Rales, Rhonchi, Wheezes, Respiratory Distress, Stridor - Cardiovascular Exam Cardiovascular Exam: REGULAR RHYTHM, +S1, +S2, Murmur. absent: Bradycardia, Tachycardia, Clicks, Diastolic murmur, Gallop, Irregular Rhythm, JVD, RRR, Rubs , +S4 - GI/Abdominal Exam GI & Abdominal Exam: Soft, Normal Bowel Sounds. absent: Bruit, Distended, Firm , Guarding, Rigid, Tenderness, Diminished Bowel Sounds, Hernia, Hyperactive Bowel Sounds, Hypoactive Bowel Sounds, Organomegaly, Pulsatile Mass, Rebound, Mass - Rectal Exam Rectal Exam: Deferred - Extremities Exam Extremities Exam: Full ROM, Normal Capillary Refill, Normal Inspection. absent : Calf Tenderness, Joint Swelling, Pedal Edema, Tenderness - Back Exam Back Exam: NORMAL INSPECTION. absent: CVA tenderness (L), CVA tenderness (R), Full ROM, muscle spasm, paraspinal tenderness, rash noted, tenderness, vertebral tenderness - Neurological Exam Neurological Exam: Alert, Awake, CN II-XII Intact, Normal Gait, Oriented x3. absent: Abnormal Gait, Altered, Motor Sensory Deficit, Reflexes Normal - Psychiatric Exam Psychiatric exam: Normal Affect, Normal Mood. absent: Agitated, Anxious, Depressed, Flat Affect, Homicidal Ideation, Manic, Suicidal Ideation - Skin Skin Exam: Dry, Intact, Normal Color, Warm. absent: Abrasion, Cyanosis, Diaphoretic, Erythema, Mottled, Pallor, Pallor, Petechiae, Rash, Urticaria, Vesicles Assessment and Plan (1) Acute coronary syndrome Status: Acute (2) Angina at rest Status: Acute (3) Anxiety Status: Acute (4) CAD (coronary artery disease) Status: Acute (5) CHF (congestive heart failure) Status: Acute (6) Chest pain Status: Acute (7) Diabetes Status: Acute (8) Elevated troponin Status: Acute (9) HTN (hypertension) Status: Acute (10) Hypercholesteremia Status: Acute (11) Hyperlipemia Status: Acute - Assessment and Plan (Free Text) Plan: INCREASE TOPROL XL TO 25MG BID. TARGET HR 50-55 AT REST.
--- NOTE | 2017-12-01 14:43 | CARD ---
APPROVED REPORT EKG Measurement Heart [id number] [place] [id number] [id number] <Conclusion> Normal sinus rhythm ST & T wave abnormality, consider lateral ischemia Prolonged QT Abnormal ECG
--- NOTE | 2017-12-01 20:01 | CP.PCM.PN ---
Subjective - Date & Time of Evaluation Date of Evaluation: 12/01/17 Time of Evaluation: 10:00 - Subjective Subjective: clinically same critical care MD and cardio following Objective - Vital Signs/Intake and Output Vital Signs (last 24 hours): Temp Pulse Resp BP Pulse Ox 97.3 F L 71 13 101/58 L 100 12/01/17 08:00 12/01/17 14:33 12/01/17 14:33 12/01/17 14:33 12/01/17 08:00 Intake and Output: 12/01/17 12/02/17 18:59 06:59 Intake Total 852 Output Total 950 Balance -98 - Medications Medications: Current Medications Acetaminophen (Tylenol 325mg Tab) 650 mg PO Q6 PRN PRN Reason: Pain, moderate (4-7) Last Admin: 12/01/17 12:14 Dose: 650 mg Albuterol/Ipratropium (Duoneb 3 Mg/0.5 Mg (3 Ml) Ud) 3 ml INH RQ6 PRN PRN Reason: Shortness of Breath Aspirin (Aspirin Chewable) 81 mg PO DAILY [facility] Last Admin: 12/01/17 09:24 Dose: 81 mg Clopidogrel Bisulfate (Plavix) 75 mg PO DAILY [facility] Last Admin: 12/01/17 09:23 Dose: 75 mg Famotidine (Pepcid) 20 mg PO DAILY [facility] Last Admin: 12/01/17 09:23 Dose: 20 mg Fluoxetine HCl (Prozac) 40 mg PO DAILY [facility] Last Admin: 12/01/17 09:24 Dose: 40 mg Furosemide (Lasix) 40 mg PO DAILY [facility] Last Admin: 12/01/17 09:24 Dose: 40 mg Gabapentin (Neurontin) 300 mg PO BID [facility] Last Admin: 12/01/17 17:50 Dose: 300 mg Heparin Sodium (Porcine) (Heparin) 5,000 units SC Q8 [facility] Last Admin: 12/01/17 14:34 Dose: 5,000 units Insulin Aspart (Novolog Mix 70/30 (70/30 Units/Ml)) 10 units SC [facility] Last Admin: 12/01/17 16:30 Dose: 10 u Insulin Detemir (Levemir) 40 unit SC HS [facility] Last Admin: 11/30/17 21:34 Dose: 40 unit Insulin Human Regular (Novolin R) 0 unit SC [facility] PRN Reason: Protocol Last Admin: 12/01/17 16:21 Dose: Not Given Isosorbide Mononitrate (Imdur Er) 30 mg PO DAILY [facility] Last Admin: 12/01/17 09:24 Dose: 30 mg Lisinopril (Zestril) 5 mg PO DAILY [facility] Last Admin: 12/01/17 09:23 Dose: 5 mg Metoprolol Succinate (Toprol Xl) 25 mg PO Q12 [facility] Nitroglycerin (Nitrostat Sl Tab) 0.4 mg SL Q5M PRN Last Admin: 11/30/17 00:25 Dose: 0.4 mg Nitroglycerin (Nitro-Bid 2% Oint) 1 ea TOP BID [facility] Last Admin: 12/01/17 17:50 Dose: 1 ea Ranolazine (Ranexa) 1,000 mg PO BID [facility] Last Admin: 12/01/17 17:50 Dose: 1,000 mg Rosuvastatin Calcium (Crestor) 10 mg PO HS [facility] Last Admin: 11/30/17 21:09 Dose: 10 mg - Labs Labs: 12/01/17 06:07 12/01/17 06:04 PT 11.4 SECONDS (9.7-12.2) 11/29/17 06:11 INR 1.0 11/29/17 06:11 APTT 30 SECONDS (21-34) D 11/29/17 06:11 - Constitutional Appears: Well - Head Exam Head Exam: ATRAUMATIC, NORMAL INSPECTION, NORMOCEPHALIC - Eye Exam Eye Exam: EOMI, Normal appearance, PERRL Pupil Exam: NORMAL ACCOMODATION, PERRL - ENT Exam ENT Exam: Mucous Membranes Moist, Normal Exam - Neck Exam Neck Exam: Full ROM, Normal Inspection. absent: Lymphadenopathy - Respiratory Exam Respiratory Exam: Decreased Breath Sounds - Cardiovascular Exam Cardiovascular Exam: REGULAR RHYTHM, +S1, +S2 - GI/Abdominal Exam GI & Abdominal Exam: Soft, Diminished Bowel Sounds - Rectal Exam Rectal Exam: Deferred - Neurological Exam Neurological Exam: Alert, Awake, Oriented x3 Assessment and Plan (1) Unstable angina Status: Acute (2) Abdominal pain Status: Acute (3) Abrasion of face Status: Acute (4) Acute chest pain Status: Acute (5) Acute coronary syndrome Status: Acute (6) Allergic urticaria Status: Acute (7) Anemia Status: Acute (8) Angina at rest Status: Acute (9) Anxiety Status: Acute (10) Arthritis Status: Acute (11) Asthma Status: Acute (12) CAD (coronary artery disease) Status: Acute (13) CHF (congestive heart failure) Status: Acute (14) CHF exacerbation Status: Acute (15) Chest pain Status: Acute (16) Chest pain Status: Acute (17) Cholelithiasis without obstruction Status: Acute (18) Conjunctivitis Status: Acute (19) Diabetes Status: Acute (20) Dizziness Status: Acute (21) Dizziness Status: Acute (22) Dyspnea Status: Acute (23) Dyspnea Status: Acute (24) Elevated LFTs Status: Acute (25) Elevated liver enzymes Status: Acute (26) Elevated troponin Status: Acute (27) Gastroenteritis Status: Acute (28) Generalized edema Status: Acute (29) HTN (hypertension) Status: Acute (30) Headache Status: Acute (31) Hematuria Status: Acute (32) Hypercholesteremia Status: Acute (33) Hyperkalemia Status: Acute (34) Hyperlipemia Status: Acute (35) Knee pain Status: Acute (36) Lip numbness Status: Acute (37) NSTEMI (non-ST elevated myocardial infarction) Status: Acute (38) ESPERANZA (obstructive sleep apnea) Status: Acute (39) Odynophagia Status: Acute (40) Osteoarthritis Status: Acute (41) PFO (patent foramen ovale) Status: Acute (42) Paresthesia Status: Acute (43) Personal history of coronary artery disease Status: Acute (44) Precordial pain Status: Acute (45) Prophylactic measure Status: Acute (46) Psychiatric disorder Status: Acute (47) Shoulder strain Status: Acute (48) TIA (transient ischemic attack) Status: Acute (49) UTI (urinary tract infection) Status: Acute (50) Vaginal candidiasis Status: Acute (51) Wound infection Status: Acute (52) Wrist injury Status: Acute (53) Diabetes type 2, uncontrolled Status: Chronic (54) Status post coronary angioplasty Status: Chronic - Assessment and Plan (Free Text) Plan: meds reviewed case d/w consultants carmen as ordered further cardiac w/up as discussed
[2017-12-01] MEDS: Metoprolol Succinate 25 mg XL Tab PO SCH (22:00)
[2017-12-01] MEDS: Insulin Detemir 100 units/ml Vial (Levemir) SC SCH (22:01)
--- NOTE | 2017-12-01 22:41 | CARD ---
APPROVED REPORT EKG Measurement Heart [id number] [place] [id number] <Conclusion> Normal sinus rhythm Marked ST abnormality, possible lateral subendocardial injury Prolonged QT Abnormal ECG
[2017-12-02 06:34] LABS: BASO % 0.5 % (0.0-2.0); EOS # 0.1 K/uL (0.0-0.7); HEMOGLOBIN 13.4 g/dL (11.0-16.0); LYMPH # 2.8 K/uL (1.0-4.3); LYMPH % 43.6 % (20.0-40.0); MEAN CELL VOLUME 93.2 fL (81.0-99.0); MEAN CORPUSCULAR HGB CONC 34.3 g/dL (33.0-37.0); MONO # 0.8 K/uL (0.0-0.8); MONO % 12.7 % (0.0-10.0); NEUT # 2.7 K/uL (1.8-7.0); NEUT % 42.2 % (50.0-75.0); RBC 4.2 Mil/uL (3.80-5.20); WHITE BLOOD COUNT 6.4 K/uL (4.8-10.8)
[2017-12-02 06:44] LABS: ALB/GLOB RATIO 1.2 (1.0-2.1); ALBUMIN 3.9 g/dL (3.5-5.0); ALT/SGPT 33 U/L (9-52); AST/SGOT 30 U/L (14-36); BLOOD UREA NITROGEN 24 mg/dL (7-17); CALCIUM 9.2 mg/dl (8.6-10.4); GFR AFRICAN-AMERICAN > 60; GFR NON-AFRICAN AMERICAN > 60
[2017-12-02] MEDS: (Novolin R) Insulin Human Regular 100 units/ml vial SC SCH ×3 (08:28→17:00)
[2017-12-02] MEDS: (Novolog Mix 70/30) Insulin Aspart/Insulin Aspar 100 units/ml SC SCH ×3 (08:30→17:00)
[2017-12-02] MEDS: Metoprolol Succinate 25 mg XL Tab PO SCH (09:09)
[2017-12-02] MEDS: Nitroglycerin 2% Ointment Foilpak UD TOP SCH ×2 (09:12→17:49)
[2017-12-02] MEDS: Ranolazine 500 mg Extended Release Tablets PO SCH ×2 (09:17→17:42)
[2017-12-02 14:30] VITALS: BP 103/48; PULSE 66; RESP 19; TEMP 98; O2SAT 97
--- NOTE | 2017-12-02 16:54 | CP.PCM.PN ---
Subjective - Date & Time of Evaluation Date of Evaluation: 12/02/17 Time of Evaluation: 16:52 - Subjective Subjective: NO CP TODAY Objective - Vital Signs/Intake and Output Vital Signs (last 24 hours): Temp Pulse Resp BP Pulse Ox 98 F 66 19 103/48 L 97 12/02/17 12:00 12/02/17 12:00 12/02/17 12:00 12/02/17 12:00 12/02/17 12:00 - Medications Medications: Current Medications Acetaminophen (Tylenol 325mg Tab) 650 mg PO Q6 PRN PRN Reason: Pain, moderate (4-7) Last Admin: 12/01/17 12:14 Dose: 650 mg Albuterol/Ipratropium (Duoneb 3 Mg/0.5 Mg (3 Ml) Ud) 3 ml INH RQ6 PRN PRN Reason: Shortness of Breath Aspirin (Aspirin Chewable) 81 mg PO DAILY [facility] Last Admin: 12/02/17 09:12 Dose: 81 mg Clopidogrel Bisulfate (Plavix) 75 mg PO DAILY [facility] Last Admin: 12/02/17 09:11 Dose: 75 mg Famotidine (Pepcid) 20 mg PO DAILY [facility] Last Admin: 12/02/17 09:12 Dose: 20 mg Fluoxetine HCl (Prozac) 40 mg PO DAILY [facility] Last Admin: 12/02/17 09:17 Dose: 40 mg Furosemide (Lasix) 40 mg PO DAILY [facility] Last Admin: 12/02/17 09:12 Dose: 40 mg Gabapentin (Neurontin) 300 mg PO BID [facility] Last Admin: 12/02/17 09:15 Dose: 300 mg Heparin Sodium (Porcine) (Heparin) 5,000 units SC Q8 [facility] Last Admin: 12/02/17 13:35 Dose: 5,000 units Insulin Aspart (Novolog Mix 70/30 (70/30 Units/Ml)) 10 units SC [facility] Last Admin: 12/02/17 12:00 Dose: 10 u Insulin Detemir (Levemir) 40 unit SC HS [facility] Last Admin: 12/01/17 22:01 Dose: 40 unit Insulin Human Regular (Novolin R) 0 unit SC [facility] PRN Reason: Protocol Last Admin: 12/02/17 12:00 Dose: 6 u Isosorbide Mononitrate (Imdur Er) 30 mg PO DAILY [facility] Last Admin: 12/02/17 09:12 Dose: 30 mg Lisinopril (Zestril) 5 mg PO DAILY [facility] Last Admin: 12/02/17 09:17 Dose: 5 mg Metoprolol Succinate (Toprol Xl) 25 mg PO Q12 [facility] Last Admin: 12/02/17 09:09 Dose: 25 mg Nitroglycerin (Nitrostat Sl Tab) 0.4 mg SL Q5M PRN Last Admin: 11/30/17 00:25 Dose: 0.4 mg Nitroglycerin (Nitro-Bid 2% Oint) 1 ea TOP BID [facility] Last Admin: 12/02/17 09:12 Dose: 1 ea Ranolazine (Ranexa) 1,000 mg PO BID [facility] Last Admin: 12/02/17 09:17 Dose: 1,000 mg Rosuvastatin Calcium (Crestor) 10 mg PO HS [facility] Last Admin: 12/01/17 22:00 Dose: 10 mg - Labs Labs: 12/02/17 06:24 12/02/17 06:24 PT 11.4 SECONDS (9.7-12.2) 11/29/17 06:11 INR 1.0 11/29/17 06:11 APTT 30 SECONDS (21-34) D 11/29/17 06:11 - Constitutional Appears: Well - Head Exam Head Exam: ATRAUMATIC, NORMAL INSPECTION, NORMOCEPHALIC - Eye Exam Eye Exam: EOMI, Normal appearance, PERRL. absent: Conjunctival injection, Nystagmus, Periorbital swelling, Periorbital tenderness, Scleral icterus Pupil Exam: NORMAL ACCOMODATION, PERRL - ENT Exam ENT Exam: Mucous Membranes Moist, Normal Exam. absent: Mucous Membranes Dry, Normal External Ear Exam, Normal Oropharynx, TM's Normal Bilaterally - Neck Exam Neck Exam: Full ROM, Normal Inspection. absent: Lymphadenopathy, Meningismus, Tenderness, Thyromegaly - Respiratory Exam Respiratory Exam: Clear to Ausculation Bilateral, NORMAL BREATHING PATTERN. absent: Accessory Muscle Use, Chest Wall Tenderness, Decreased Breath Sounds, Prolonged Expiratory Phase, Rales, Rhonchi, Wheezes, Respiratory Distress, Stridor - Cardiovascular Exam Cardiovascular Exam: Diastolic murmur, REGULAR RHYTHM, +S1, +S2, Murmur. absent : Bradycardia, Tachycardia, Clicks, Gallop, Irregular Rhythm, JVD, RRR, Rubs, + S4 - GI/Abdominal Exam GI & Abdominal Exam: Soft, Normal Bowel Sounds. absent: Bruit, Distended, Firm , Guarding, Rigid, Tenderness, Diminished Bowel Sounds, Hernia, Hyperactive Bowel Sounds, Hypoactive Bowel Sounds, Organomegaly, Pulsatile Mass, Rebound, Mass - Rectal Exam Rectal Exam: Deferred - Extremities Exam Extremities Exam: Full ROM, Normal Capillary Refill, Pedal Edema. absent: Calf Tenderness, Joint Swelling, Tenderness - Back Exam Back Exam: NORMAL INSPECTION. absent: CVA tenderness (L), CVA tenderness (R), Full ROM, muscle spasm, paraspinal tenderness, rash noted, tenderness, vertebral tenderness - Neurological Exam Neurological Exam: Alert, Awake, CN II-XII Intact, Normal Gait, Oriented x3. absent: Abnormal Gait, Altered, Motor Sensory Deficit, Reflexes Normal - Psychiatric Exam Psychiatric exam: Normal Affect, Normal Mood. absent: Agitated, Anxious, Depressed, Flat Affect, Homicidal Ideation, Manic, Suicidal Ideation - Skin Skin Exam: Dry, Intact, Normal Color, Warm. absent: Abrasion, Cyanosis, Diaphoretic, Erythema, Mottled, Pallor, Pallor, Petechiae, Rash, Urticaria, Vesicles Assessment and Plan (1) Acute coronary syndrome Status: Acute (2) Angina at rest Status: Acute (3) Anxiety Status: Acute (4) CAD (coronary artery disease) Status: Acute (5) CHF (congestive heart failure) Status: Acute (6) Chest pain Status: Acute (7) Diabetes Status: Acute (8) Elevated troponin Status: Acute (9) HTN (hypertension) Status: Acute (10) Hypercholesteremia Status: Acute (11) Hyperlipemia Status: Acute - Assessment and Plan (Free Text) Plan: CONT TO TITRATE BB'S FOR HR OF 55 QAT REST. OK FOR TELE WILL FOLLOW
--- NOTE | 2017-12-02 17:06 | CP.PCM.PN ---
Subjective - Date & Time of Evaluation Date of Evaluation: 12/02/17 Time of Evaluation: 17:05 - Subjective Subjective: PATIENT AAOX3 SITTING AT THE BEDSIDE / DENIES CHEST PAIN JUST MUSCLE DICOMFORT DENIES NAUSEA/ VOMITING/ DIZZINESS NO SIGN OF DISTRESS NOTED Objective - Vital Signs/Intake and Output Vital Signs (last 24 hours): Temp Pulse Resp BP Pulse Ox 98 F 66 19 103/48 L 97 12/02/17 12:00 12/02/17 12:00 12/02/17 12:00 12/02/17 12:00 12/02/17 12:00 - Medications Medications: Current Medications Acetaminophen (Tylenol 325mg Tab) 650 mg PO Q6 PRN PRN Reason: Pain, moderate (4-7) Last Admin: 12/01/17 12:14 Dose: 650 mg Albuterol/Ipratropium (Duoneb 3 Mg/0.5 Mg (3 Ml) Ud) 3 ml INH RQ6 PRN PRN Reason: Shortness of Breath Aspirin (Aspirin Chewable) 81 mg PO DAILY [facility] Last Admin: 12/02/17 09:12 Dose: 81 mg Clopidogrel Bisulfate (Plavix) 75 mg PO DAILY [facility] Last Admin: 12/02/17 09:11 Dose: 75 mg Famotidine (Pepcid) 20 mg PO DAILY [facility] Last Admin: 12/02/17 09:12 Dose: 20 mg Fluoxetine HCl (Prozac) 40 mg PO DAILY [facility] Last Admin: 12/02/17 09:17 Dose: 40 mg Furosemide (Lasix) 40 mg PO DAILY [facility] Last Admin: 12/02/17 09:12 Dose: 40 mg Gabapentin (Neurontin) 300 mg PO BID [facility] Last Admin: 12/02/17 09:15 Dose: 300 mg Heparin Sodium (Porcine) (Heparin) 5,000 units SC Q8 [facility] Last Admin: 12/02/17 13:35 Dose: 5,000 units Insulin Aspart (Novolog Mix 70/30 (70/30 Units/Ml)) 10 units SC [facility] Last Admin: 12/02/17 12:00 Dose: 10 u Insulin Detemir (Levemir) 40 unit SC HS [facility] Last Admin: 12/01/17 22:01 Dose: 40 unit Insulin Human Regular (Novolin R) 0 unit SC [facility] PRN Reason: Protocol Last Admin: 12/02/17 12:00 Dose: 6 u Isosorbide Mononitrate (Imdur Er) 30 mg PO DAILY [facility] Last Admin: 12/02/17 09:12 Dose: 30 mg Lisinopril (Zestril) 5 mg PO DAILY [facility] Last Admin: 12/02/17 09:17 Dose: 5 mg Metoprolol Succinate (Toprol Xl) 25 mg PO Q12 [facility] Last Admin: 12/02/17 09:09 Dose: 25 mg Nitroglycerin (Nitrostat Sl Tab) 0.4 mg SL Q5M PRN Last Admin: 11/30/17 00:25 Dose: 0.4 mg Nitroglycerin (Nitro-Bid 2% Oint) 1 ea TOP BID [facility] Last Admin: 12/02/17 09:12 Dose: 1 ea Ranolazine (Ranexa) 1,000 mg PO BID [facility] Last Admin: 12/02/17 09:17 Dose: 1,000 mg Rosuvastatin Calcium (Crestor) 10 mg PO HS [facility] Last Admin: 12/01/17 22:00 Dose: 10 mg - Labs Labs: 12/02/17 06:24 12/02/17 06:24 PT 11.4 SECONDS (9.7-12.2) 11/29/17 06:11 INR 1.0 11/29/17 06:11 APTT 30 SECONDS (21-34) D 11/29/17 06:11 Assessment and Plan - Assessment and Plan (Free Text) Assessment: PATIENT SEEN AND EXAMINED AT THE BEDSIDE LUNG SOUND CLEAR DEMARCO PATIENT HAD A CATH BY DR RODRIGUEZ / NO INTERVENTION MEDICAL MANAGEMENT AT THIS TIME CHEST CT DONE PENDING RESULT /PER DR OROSCO WILL F/U IN HIS OFFICE FOR RESULT OUT PATIENT AFEBRLE/ LAB WORK WNL/ VITAL SIGN ARE STABLE DISCUSS WITH DR RODRIGUEZ AND DR OROSCO WHO CLEAR FOR DC FOLLOW UP WITH DR Rubi OROSCO I 1-2 WEEK AT HIS OFFICE --CALL FOR APPOINTMENT FOLLOW UP WITH DR RODRIGUEZ 1-2 WEEK AT HIS OFFICE ---CALL FOR APPOINTMENT CONTINUE ALL YOUR HOME MEDICATION NEW PRESCRIPTION GIVEN Aspirin 81 mg po daily TOPROL XL 25 MG BY MOUTH TWICE A DAY LISIPRIL 5 MG BY MOUTH ONE TAB DAILY IMDUR 30 MG BY MOUTH ONE TAB DAILY NITRO 2% TOPICAL TWICE A DAY GABAPENTIN PROZAC ACTIVITY TOLERATED CALL DR RODRIGUEZ OR DR Rubi OROSCO OR GO TO THE EMERGENCY ROOM IF SYMPTOMS RETURN OR WORSENING DISCUSS WITH PATIENT WHO AGREE AND VERBALZIED UNDERSTANDING
--- NOTE | 2017-12-02 17:21 | CT ---
PROCEDURE: CT Chest without contrast HISTORY: CHEST PAIN COMPARISON: 11/26/2017 single-view chest TECHNIQUE: Contiguous axial images were obtained through the chest without intravenous contrast enhancement. Sagittal and coronal reconstructions were performed. Radiation dose (DLP): 980.48 mGy-cm. This CT exam was performed using one or more of the following dose reduction techniques: Automated exposure control, adjustment of the mA and/or kV according to patient size, and/or use of iterative reconstruction technique. FINDINGS: LUNGS: Mild bullous change particularly at the lung bases. MEDIASTINUM: Unremarkable thoracic aorta. No aneurysm. No radiographic findings to suggest acute or significant cardiovascular disease. Incidental Finding(s): Postoperative changes related to sternotomy. Main pulmonary artery unremarkable. No vascular congestion. No lymphadenopathy. PLEURA: No pleural fluid. No pneumothorax. BONES: No fracture. No destructive lesion. UPPER ABDOMEN: Grossly unremarkable. OTHER FINDINGS: None. IMPRESSION: Unremarkable non-contrast enhanced CT of the chest. Additional benign and/or incidental findings described above.
== END 2017-12-02 19:28 | disposition home or self-care (01) | DRG 121 ==
LOC: C.ER 13:53 → C.9E 17:07 → C.9I 18:29
PROVIDERS: ADMIT Internal Medicine Nephrology; ATTEND Internal Medicine Nephrology
DX: I21.4 Non-ST elevation (NSTEMI) myocardial infarction (principal); I13.0 Hypertensive heart and chronic kidney disease with heart failure and stage 1 through stage 4 chronic kidney disease, or unspecified chronic kidney disease; B37.3 Candidiasis of vulva and vagina; E11.10 Type 2 diabetes mellitus with ketoacidosis without coma; E10.22 Type 1 diabetes mellitus with diabetic chronic kidney disease; E87.5 Hyperkalemia; E87.2 Acidosis; I50.9 Heart failure, unspecified; E78.00 Pure hypercholesterolemia, unspecified; F41.9 Anxiety disorder, unspecified; I25.10 Atherosclerotic heart disease of native coronary artery without angina pectoris; Z79.4 Long term (current) use of insulin; L50.0 Allergic urticaria; K52.9 Noninfective gastroenteritis and colitis, unspecified

== ENCOUNTER 2018-03-21 05:47 | Emergency (ER) | payer MEDICAID ==
[2018-03-21 05:47] VITALS: BMI 36.4
[2018-03-21 06:04] VITALS: O2SAT 100
--- NOTE | 2018-03-21 06:16 | C.PDOC ---
History Of Present Illness 52 year old female presents to the ED c/o cold like symptoms, productive cough with mucous. Patient denies fever, chills, nausea, vomit, rash, recent travel, sick contacts. Chief Complaint (Nursing): Cough, Cold, Congestion History Per: Patient History/Exam Limitations: no limitations Onset/Duration Of Symptoms: Days Current Symptoms Are (Timing): Still Present Location Of Pain: Throat Sick Contacts (Context): None Associated Symptoms: Cough, Sputum Ear Symptoms: Bilateral: None Recent travel outside of the [place]: No Additional History Per: Patient Past Medical History Reviewed: Historical Data, Nursing Documentation, Vital Signs Vital Signs: Last Vital Signs Temp 98.2 F 03/21/18 05:57 Pulse 60 03/21/18 05:57 Resp 20 03/21/18 05:57 BP 116/53 L 03/21/18 05:57 Pulse Ox 100 03/21/18 05:57 - Medical History PMH: Anxiety, Asthma, CAD, Cardia Arrhythmia, Depression, Diabetes, Gastritis, Gastrointestinal Ulcer, Gall Bladder Disease, HTN, Hypercholesterolemia, Peripheral Edema, Chronic Kidney Disease, Sleep Apnea, TIA Surgical History: CABG (september 2008 x4), Cholecystectomy, Coronary Stent (9 stents) - [facility] Procedures APPLICATION OF SPLINT (06/09/14) CORONAR ARTERIOGR-2 CATH (12/14/14) DILATION OF 1 COR ART WITH DRUG-ELUT INTRALUM, PERC APPROACH (05/26/15) DILATION OF CORONARY ARTERY, ONE SITE, PERCUTANEOUS APPROACH (03/04/16) FLUOROSCOPY OF LEFT HEART USING LOW OSMOLAR CONTRAST (05/26/15) FLUOROSCOPY OF SINGLE CORONARY ARTERY USING L OSM CONTRAST (05/26/15) INFLUENZA VACCINATION (05/08/14) LEFT HEART CARDIAC CATH (12/14/14) LT HEART ANGIOCARDIOGRAM (12/14/14) MEASURE OF CARDIAC SAMPL & PRESSURE, L HEART, PERC APPROACH (03/04/16) OTHER ENDOSCOPY OF SM INTEST (01/21/14) PLAIN RADIOGRAPHY OF LEFT HEART USING OTHER CONTRAST (03/04/16) PLAIN RADIOGRAPHY OF MULT COR ART USING OTH CONTRAST (03/04/16) TETANUS TOXOID ADMINIST (06/09/14) TRANSFUSE NONAUT RED BLOOD CELLS IN PERIPH VEIN, PERC (03/30/16) VACCINATION NEC (05/08/14) Family History: States: Unknown Family Hx - Social History Hx Tobacco Use: No Hx Alcohol Use: No Hx Substance Use: No - Immunization History Hx Tetanus Toxoid Vaccination: Yes (06/09/14) Hx Influenza Vaccination: Yes (2016) Hx Pneumococcal Vaccination: Yes Review Of Systems Constitutional: Negative for: Fever, Chills Cardiovascular: Negative for: Chest Pain, Palpitations Respiratory: Positive for: Cough, Shortness of Breath, Sputum Gastrointestinal: Negative for: Nausea, Vomiting, Abdominal Pain Skin: Negative for: Rash Physical Exam - Physical Exam Appears: Non-toxic, No Acute Distress Skin: Normal Color, Warm, Dry Head: Atraumatic, Normacephalic Eye(s): bilateral: Normal Inspection Ear(s): Bilateral: Normal Oral Mucosa: Moist Throat: Normal, No Erythema, No Exudate Neck: Normal ROM, Supple Chest: Symmetrical Cardiovascular: Rhythm Regular Respiratory: No Rales, Rhonchi (occasional ), No Wheezing Gastrointestinal/Abdominal: Soft, No Tenderness, No Guarding, No Rebound Extremity: Normal ROM, No Tenderness, No Swelling Neurological/Psych: Oriented x3, Normal Speech, Normal Cognition Gait: Steady ED Course And Treatment O2 Sat by Pulse Oximetry: 100 (ON RA) Pulse Ox Interpretation: Normal Medical Decision Making Medical Decision Making: Plan: * Zithromax 500 mg PO * Disposition Counseled Patient/Family Regarding: Diagnosis - Disposition Referrals: [facility] [Outside] Disposition: HOME/ ROUTINE Disposition Time: 06:12 Condition: STABLE Prescriptions: RX: Azithromycin [Z-Donald] 250 mg PO DAILY #6 tab Instructions: Upper Respiratory Infection (ED) Forms: [facility] (Ukrainian) - POA Present On Arrival: None - Clinical Impression Clinical Impression: Upper respiratory infection - Scribe Statement The provider has reviewed the documentation as recorded by the Scribe Alexx Pelayo All medical record entries made by the Scribe were at my direction and personally dictated by me. I have reviewed the chart and agree that the record accurately reflects my personal performance of the history, physical exam, medical decision making, and the department course for this patient. I have also personally directed, reviewed, and agree with the discharge instructions and disposition.
--- NOTE | 2018-03-21 06:18 | C.PDOC ---
History Of Present Illness 52 year old female presents to the ED c/o cold like symptoms, productive coughing with mucous. Patient denies fever, chills, nausea, vomit, SOB, CP, palpitations, weakness, numbness. Chief Complaint (Nursing): Cough, Cold, Congestion History Per: Patient History/Exam Limitations: no limitations Onset/Duration Of Symptoms: Days Current Symptoms Are (Timing): Still Present Location Of Pain: Throat Sick Contacts (Context): None Associated Symptoms: Cough, Sputum Ear Symptoms: Bilateral: None Recent travel outside of the [place]: No Additional History Per: Patient Past Medical History Reviewed: Historical Data, Nursing Documentation, Vital Signs Vital Signs: Last Vital Signs Temp 98.2 F 03/21/18 05:57 Pulse 60 03/21/18 05:57 Resp 20 03/21/18 05:57 BP 116/53 L 03/21/18 05:57 Pulse Ox 100 03/21/18 05:57 - Medical History PMH: Anxiety, Asthma, CAD, Cardia Arrhythmia, Depression, Diabetes, Gastritis, Gastrointestinal Ulcer, Gall Bladder Disease, HTN, Hypercholesterolemia, Peripheral Edema, Chronic Kidney Disease, Sleep Apnea, TIA Surgical History: CABG (september 2008 x4), Cholecystectomy, Coronary Stent (9 stents) - [facility] Procedures APPLICATION OF SPLINT (06/09/14) CORONAR ARTERIOGR-2 CATH (12/14/14) DILATION OF 1 COR ART WITH DRUG-ELUT INTRALUM, PERC APPROACH (05/26/15) DILATION OF CORONARY ARTERY, ONE SITE, PERCUTANEOUS APPROACH (03/04/16) FLUOROSCOPY OF LEFT HEART USING LOW OSMOLAR CONTRAST (05/26/15) FLUOROSCOPY OF SINGLE CORONARY ARTERY USING L OSM CONTRAST (05/26/15) INFLUENZA VACCINATION (05/08/14) LEFT HEART CARDIAC CATH (12/14/14) LT HEART ANGIOCARDIOGRAM (12/14/14) MEASURE OF CARDIAC SAMPL & PRESSURE, L HEART, PERC APPROACH (03/04/16) OTHER ENDOSCOPY OF SM INTEST (01/21/14) PLAIN RADIOGRAPHY OF LEFT HEART USING OTHER CONTRAST (03/04/16) PLAIN RADIOGRAPHY OF MULT COR ART USING OTH CONTRAST (03/04/16) TETANUS TOXOID ADMINIST (06/09/14) TRANSFUSE NONAUT RED BLOOD CELLS IN PERIPH VEIN, PERC (03/30/16) VACCINATION NEC (05/08/14) Family History: States: Unknown Family Hx - Social History Hx Tobacco Use: No Hx Alcohol Use: No Hx Substance Use: No - Immunization History Hx Tetanus Toxoid Vaccination: Yes (06/09/14) Hx Influenza Vaccination: Yes (2016) Hx Pneumococcal Vaccination: Yes Review Of Systems Constitutional: Negative for: Fever, Chills ENT: Positive for: Throat Pain. Negative for: Nose Congestion Cardiovascular: Negative for: Chest Pain, Palpitations Respiratory: Positive for: Cough, Sputum. Negative for: Shortness of Breath Gastrointestinal: Negative for: Nausea, Vomiting Skin: Negative for: Rash Physical Exam - Physical Exam Appears: Non-toxic, No Acute Distress Skin: Normal Color, Warm, Dry Head: Atraumatic, Normacephalic Eye(s): bilateral: Normal Inspection Oral Mucosa: Moist Throat: Normal, No Erythema, No Exudate Neck: Normal ROM, Supple Chest: Symmetrical Cardiovascular: Rhythm Regular Respiratory: No Rales, Rhonchi, No Wheezing ED Course And Treatment O2 Sat by Pulse Oximetry: 100 Disposition - Disposition Forms: [facility] (Uzbek)
[2018-03-21 06:59] VITALS: BP 119/46; PULSE 55; RESP 17; TEMP 98.3
== END 2018-03-21 07:08 | disposition home or self-care (01) ==
LOC: C.ER 05:47
DX: J06.9 Acute upper respiratory infection, unspecified (principal)

== ENCOUNTER 2018-04-03 12:14 | Inpatient (IN) | payer MEDICAID ==
[2018-04-03 12:15] VITALS: BMI 36.4
--- NOTE | 2018-04-03 12:48 | C.PDOC ---
History Of Present Illness 52 year old female presents to ED after a syncope episode earlier today while walking. States as she was walking, she suddenly started having blurry vision, dyspnea, knee weakness, shaky hands, and was feeling nauseous and lightheaded. Patient was seen in ED 2 weeks ago for similar symptoms and was discharged home. Had another episode while walking and pushing a wheelchair 2 weeks ago. Patient takes Plavix. Denies fever, cough, vomiting. Christina Clay Time Seen by Provider: 04/03/18 12:19 Chief Complaint (Nursing): Dizziness/Lightheaded History Per: Patient History/Exam Limitations: no limitations Onset/Duration Of Symptoms: Hrs Current Symptoms Are (Timing): Still Present Past Medical History Reviewed: Historical Data, Nursing Documentation, Vital Signs Vital Signs: Last Vital Signs Temp 98.2 F 04/03/18 12:15 Pulse 60 04/03/18 12:15 Resp 14 04/03/18 12:15 BP 137/64 04/03/18 12:15 Pulse Ox 97 04/03/18 12:15 - Medical History PMH: Anxiety, Asthma, CAD, Cardia Arrhythmia, Depression, Diabetes, Gastritis, G astrointestinal Ulcer, Gall Bladder Disease, HTN, Hypercholesterolemia, Peripheral Edema, Chronic Kidney Disease, Sleep Apnea, TIA Surgical History: CABG (september 2008 x4), Cholecystectomy, Coron[facility] Procedures APPLICATION OF SPLINT (06/09/14) CORONAR ARTERIOGR-2 CATH (12/14/14) DILATION OF 1 COR ART WITH DRUG-ELUT INTRALUM, PERC APPROACH (05/26/15) DILATION OF CORONARY ARTERY, ONE SITE, PERCUTANEOUS APPROACH (03/04/16) FLUOROSCOPY OF LEFT HEART USING LOW OSMOLAR CONTRAST (05/26/15) FLUOROSCOPY OF SINGLE CORONARY ARTERY USING L OSM CONTRAST (05/26/15) INFLUENZA VACCINATION (05/08/14) LEFT HEART CARDIAC CATH (12/14/14) LT HEART ANGIOCARDIOGRAM (12/14/14) MEASURE OF CARDIAC SAMPL & PRESSURE, L HEART, PERC APPROACH (03/04/16) OTHER ENDOSCOPY OF SM INTEST (01/21/14) PLAIN RADIOGRAPHY OF LEFT HEART USING OTHER CONTRAST (03/04/16) PLAIN RADIOGRAPHY OF MULT COR ART USING OTH CONTRAST (03/04/16) TETANUS TOXOID ADMINIST (06/09/14) TRANSFUSE NONAUT RED BLOOD CELLS IN PERIPH VEIN, PERC (03/30/16) VACCINATION NEC (05/08/14) Family History: States: No Known Family Hx - Social History Hx Tobacco Use: No Hx Alcohol Use: No Hx Substance Use: No - Immunization History Hx Tetanus Toxoid Vaccination: Yes (06/09/14) Hx Influenza Vaccination: Yes (2016) Hx Pneumococcal Vaccination: Yes Review Of Systems Except As Marked, All Systems Reviewed And Found Negative. Eyes: Positive for: Vision Change (Blurry vision) Cardiovascular: Negative for: Chest Pain Respiratory: Positive for: Shortness of Breath Gastrointestinal: Positive for: Nausea. Negative for: Vomiting Neurological: Positive for: Weakness Physical Exam - Physical Exam Additional Physical Exam Comments: Constitutional: No acute distress. Head: Normocephalic. Atraumatic. Eyes: PERRL. ENT: Moist mucous membranes. Neck: Supple. Cardiovascular: Regular rate. Radial pulse 2+ bilaterally. Chest: Reproducible chest tenderness. Has midline sternotomy scar. Respiratory: Clear to auscultation bilaterally. GI: Soft. Nontender. Nondistended. Back: No CVA tenderness. Musculoskeletal: No tenderness or swelling of extremities. Graft scar on L leg. Skin: No rash. Neurologic: Alert, no focal deficit. ED Course And Treatment - Laboratory Results Result Diagrams: 04/03/18 12:50 04/03/18 12:50 O2 Sat by Pulse Oximetry: 97 (RA) Pulse Ox Interpretation: Normal Medical Decision Making Medical Decision Making: Impression: Syncope Plan: --EKG --Labs --Chest X-Ray --Aspirin 325 mg EKG: Sinus rhythm at 60 bpm. T wave inversion in [address] elevation. Similar to previous. Enzymes negative. CXR no consolidation. Consult placed for Dr. Clay. Dr. Rubi Mcelroy accepts patient to his service for syncope with cardiac history. Disposition Discussed With : Spencer Mcelroy Doctor Will See Patient In The: Hospital - Disposition Disposition: HOSPITALIZED Disposition Time: 14:15 Condition: FAIR Forms: [facility] (Japanese) - Clinical Impression Clinical Impression: Syncope - Scribe Statement The provider has reviewed the documentation as recorded by the Danaibe Eugenie Garza Provider Attestation: All medical record entries made by the Danaibtsering were at my direction and personally dictated by me. I have reviewed the chart and agree that the record accurately reflects my personal performance of the history, physical exam, medical decision making, and the department course for this patient. I have also personally directed, reviewed, and agree with the discharge instructions and disposition.
[2018-04-03 12:56] LABS: BASO % 0.6 % (0.0-2.0); EOS # 0.1 K/uL (0.0-0.7); EOS % 1.2 % (0.0-4.0); HEMOGLOBIN 14.9 g/dL (11.0-16.0); LYMPH % 23.9 % (20.0-40.0); MEAN CELL VOLUME 95.5 fL (81.0-99.0); MEAN CORPUSCULAR HEMOGLOBIN 32.8 pg (27.0-31.0); MEAN CORPUSCULAR HGB CONC 34.3 g/dL (33.0-37.0); MEAN PLATELET VOLUME 10.1 fL (7.2-11.7); MONO # 0.5 K/uL (0.0-0.8); MONO % 12.1 % (0.0-10.0); NEUT # 2.7 K/uL (1.8-7.0); NEUT % 62.2 % (50.0-75.0); NRBC % 0.1 % (0.0-2.0); RBC 4.53 Mil/uL (3.80-5.20); RED CELL DISTRIBUTION WIDTH 13.9 % (11.5-14.5); WHITE BLOOD COUNT 4.4 K/uL (4.8-10.8)
[2018-04-03 13:08] LABS: ALB/GLOB RATIO 1.1 (1.0-2.1); ALBUMIN 4.3 g/dL (3.5-5.0); ALT/SGPT 35 U/L (9-52); AST/SGOT 32 U/L (14-36); BLOOD UREA NITROGEN 16 mg/dL (7-17); CALCIUM 9.3 mg/dl (8.6-10.4); GFR NON-AFRICAN AMERICAN > 60; LIPASE 64 U/L (23-300)
[2018-04-03 13:20] LABS: B-TYPE NATRIURETIC PEPTIDE 455 pg/mL (0-900); CK-MB 1.57 ng/mL (0.0-3.38)
[2018-04-03 13:26] LABS: INR 1.1; PROTHROMBIN TIME 11.6 SECONDS (9.7-12.2)
--- NOTE | 2018-04-03 16:01 | RAD ---
HISTORY: dyspnea, syncope COMPARISON: Chest x-ray performed 11/25/17 TECHNIQUE: Chest, one view. FINDINGS: Examination limited by habitus and hypoinflation. LUNGS: No focal consolidation. Please note that chest x-ray has limited sensitivity for the detection of pulmonary masses. PLEURA: No significant pleural effusion identified. No definite pneumothorax . CARDIOVASCULAR: Heart size appears top normal. Median sternotomy wires. OSSEOUS STRUCTURES: No acute osseous abnormality identified. VISUALIZED UPPER ABDOMEN: Unremarkable. OTHER FINDINGS: None. IMPRESSION: Hypoinflation.
--- NOTE | 2018-04-03 16:21 | CP.PCM.HP ---
Past Patient History - Infectious Disease Hx of Infectious Diseases: None - Past Medical History & Family History Past Medical History?: Yes - Past Social History Smoking Status: Never Smoked - CARDIAC Hx Cardia Arrhythmia: Yes Hx Hypercholesterolemia: Yes Hx Hypertension: Yes Hx Peripheral Edema: Yes - PULMONARY Hx Asthma: Yes Hx Sleep Apnea: Yes - NEUROLOGICAL Hx Transient Ischemic Attacks (TIA): Yes - HEENT Hx HEENT Problems: No - RENAL Hx Chronic Kidney Disease: Yes - ENDOCRINE/METABOLIC Hx Endocrine Disorders: Yes Hx Diabetes Mellitus Type 1: Yes - HEMATOLOGICAL/ONCOLOGICAL Hx Blood Disorders: Yes - INTEGUMENTARY Hx Dermatological Problems: Yes Hx Psoriasis: Yes (mild) - MUSCULOSKELETAL/RHEUMATOLOGICAL Hx Falls: Yes - GASTROINTESTINAL Hx Gall Bladder Disease: Yes Hx Gastritis: Yes - GENITOURINARY/GYNECOLOGICAL Hx Genitourinary Disorders: No - PSYCHIATRIC Hx Anxiety: Yes Hx Depression: Yes Hx Substance Use: No - SURGICAL HISTORY Hx Cholecystectomy: Yes Hx Coronary Artery Bypass Graft: Yes (september 2008 x4) Hx Coronary Stent: Yes (9 stents) - ANESTHESIA Hx Anesthesia: Yes Hx Anesthesia Reactions: No Hx Malignant Hyperthermia: No Meds Allergies/Adverse Reactions: Allergies Allergy/AdvReac Type Severity Reaction Status Date / Time iodine Allergy Severe URTICARIA Verified 04/03/18 13:18 latex Allergy Severe URTICARIA Verified 04/03/18 13:18 seafood Allergy Severe URTICARIA Uncoded 04/03/18 13:18 Physical Exam - Constitutional Appears: Well - Head Exam Head Exam: ATRAUMATIC, NORMAL INSPECTION, NORMOCEPHALIC - Eye Exam Eye Exam: EOMI, Normal appearance, PERRL Pupil Exam: NORMAL ACCOMODATION, PERRL - ENT Exam ENT Exam: Mucous Membranes Moist, Normal Exam - Neck Exam Neck exam: Positive for: Normal Inspection - Respiratory Exam Respiratory Exam: Decreased Breath Sounds - Cardiovascular Exam Cardiovascular Exam: REGULAR RHYTHM, +S1, +S2 - GI/Abdominal Exam GI & Abdominal Exam: Diminished Bowel Sounds, Soft - Rectal Exam Rectal Exam: Deferred Results - Vital Signs Recent Vital Signs: Last Vital Signs Temp 98.2 F 04/03/18 12:15 Pulse 62 04/03/18 13:51 Resp 18 04/03/18 13:51 BP 137/41 L 04/03/18 13:51 Pulse Ox 97 04/03/18 14:27 - Labs Result Diagrams: 04/03/18 12:50 04/03/18 12:50 Labs: Laboratory Results - last 24 hr 04/03/18 04/03/18 04/03/18 12:50 12:50 12:50 WBC 4.4 L RBC 4.53 Hgb 14.9 Hct 43.3 MCV 95.5 D MCH 32.8 H MCHC 34.3 RDW 13.9 Plt Count 170 MPV 10.1 Neut % (Auto) 62.2 Lymph % (Auto) 23.9 Roberts % (Auto) 12.1 H Eos % (Auto) 1.2 Baso % (Auto) 0.6 Neut # (Auto) 2.7 Lymph # (Auto) 1.0 Roberts # (Auto) 0.5 Eos # (Auto) 0.1 Baso # (Auto) 0.0 PT 11.6 INR 1.1 APTT 27 Sodium 139 Potassium 4.6 Chloride 100 Carbon Dioxide 26 Anion Gap 18 BUN 16 Creatinine 0.7 Est GFR ( Amer) > 60 Est GFR (Non-Af Amer) > 60 Random Glucose 266 H Calcium 9.3 Total Bilirubin 0.8 AST 32 ALT 35 Alkaline Phosphatase 94 Total Creatine Kinase 52 CK-MB (Mass) 1.57 Troponin I < 0.0120 NT-Pro-B Natriuret Pep 455 Total Protein 8.2 Albumin 4.3 Globulin 3.9 Albumin/Globulin Ratio 1.1 Lipase 64
[2018-04-03 21:36] LABS: BLOOD UREA NITROGEN 17 mg/dL (7-17); CALCIUM 9.1 mg/dl (8.6-10.4); GFR NON-AFRICAN AMERICAN > 60
[2018-04-03] MEDS ORDERED: Enoxaparin 120 mg Syringe SC SCH (22:00)
[2018-04-04] MEDS ORDERED: Metoprolol Succinate 200 mg XL Tab PO SCH (10:00)
[2018-04-04] MEDS: Pantoprazole 40 mg EC Tab PO SCH (10:30)
[2018-04-04] MEDS: Metoprolol Succinate 100 mg XL Tab PO SCH (10:30)
[2018-04-04] MEDS: Ranolazine 500 mg Extended Release Tablets PO SCH ×2 (10:30→17:22)
[2018-04-04] MEDS: Enoxaparin 40 mg Syringe SC SCH (10:30)
[2018-04-04 12:17] LABS: FREE T4 1.25 ng/dL (0.78-2.19)
[2018-04-04] MEDS: (Novolog) Insulin Aspart, Recombinant 100 u/ml 10 ml vial SC SCH ×3 (12:51→21:39)
--- NOTE | 2018-04-04 18:42 | CP.PCM.PN ---
Subjective - Date & Time of Evaluation Date of Evaluation: 04/04/18 Time of Evaluation: 12:15 - Subjective Subjective: clinically same Objective - Vital Signs/Intake and Output Vital Signs (last 24 hours): Temp Pulse Resp BP Pulse Ox 97.6 F 63 20 149/79 97 04/04/18 17:14 04/04/18 17:14 04/04/18 17:14 04/04/18 17:14 04/04/18 17:14 Intake and Output: 04/04/18 04/04/18 06:59 18:59 Intake Total 320 Balance 320 - Medications Medications: Current Medications Aspirin (Aspirin Chewable) 81 mg PO DAILY [facility] Last Admin: 04/04/18 10:30 Dose: 81 mg Clopidogrel Bisulfate (Plavix) 75 mg PO DAILY [facility] Last Admin: 04/04/18 10:30 Dose: 75 mg Enoxaparin Sodium (Lovenox) 40 mg SC DAILY [facility] Last Admin: 04/04/18 10:30 Dose: 40 mg Gabapentin (Neurontin) 300 mg PO BID [facility] Last Admin: 04/04/18 17:22 Dose: 300 mg Glimepiride (Amaryl) 1 mg PO DAILY [facility] Last Admin: 04/04/18 12:51 Dose: 1 mg Insulin Aspart (Novolog) 0 unit SC [facility]; Protocol Last Admin: 04/04/18 17:22 Dose: 3 unit Loratadine (Claritin) 10 mg PO DAILY [facility] Last Admin: 04/04/18 10:30 Dose: 10 mg Meclizine HCl (Antivert) 12.5 mg PO BID PRN PRN Reason: Dizziness Metoprolol Succinate (Toprol Xl) 100 mg PO DAILY [facility] Last Admin: 04/04/18 10:30 Dose: 100 mg Pantoprazole Sodium (Protonix Ec Tab) 40 mg PO DAILY [facility] Last Admin: 04/04/18 10:30 Dose: 40 mg Ranolazine (Ranexa) 1,000 mg PO BID [facility] Last Admin: 04/04/18 17:22 Dose: 1,000 mg - Labs Labs: 04/03/18 12:50 04/03/18 21:16 PT 11.6 SECONDS (9.7-12.2) 04/03/18 12:50 INR 1.1 04/03/18 12:50 APTT 27 SECONDS (21-34) 04/03/18 12:50 - Constitutional Appears: Well - Head Exam Head Exam: ATRAUMATIC, NORMAL INSPECTION, NORMOCEPHALIC - Eye Exam Eye Exam: EOMI, Normal appearance, PERRL Pupil Exam: NORMAL ACCOMODATION, PERRL - ENT Exam ENT Exam: Mucous Membranes Moist, Normal Exam - Neck Exam Neck Exam: Full ROM, Normal Inspection. absent: Lymphadenopathy - Respiratory Exam Respiratory Exam: Decreased Breath Sounds - Cardiovascular Exam Cardiovascular Exam: REGULAR RHYTHM, +S1, +S2 - GI/Abdominal Exam GI & Abdominal Exam: Soft, Diminished Bowel Sounds - Rectal Exam Rectal Exam: Deferred
--- NOTE | 2018-04-04 21:04 | CP.PCM.CON ---
History of Present Illness - History of Present Illness History of Present Illness: I was asked to see patient by Dr Rubi Mcelroy. Patient was seen 04/04/18 at 1710 Patient is a 52 year old female with CAD s/p multiple PCI, DM, HTN who presents with syncope. The initial episode occurred 2 weeks ago when she noted a sudden eipsode of syncope. She was evaluated in the ER of [place], and discharged. The patient states she was walking yeaterday when agina she had a syncopal event. She does not have a recollection of the event. Review of Systems - Constitutional Constitutional: absent: As Per HPI, Anorexia, Chills, Daytime Sleepiness, Excessive Sweating, Fatigue, Fever, Frequent Falls, Headache, Increased Appetite, Lethargy, Malaise, Night Sweats, Snoring, Sleep Apnea, Weight Gain, Weight Loss, Weakness, Other - EENT Eyes: absent: As Per HPI, Blind Spots, Blurred Vision, Change in Vision, Decreased Night Vision, Diplopia, Discharge, Dry Eye, Exophthalmos, Floaters, Irritation, Itchy Eyes, Loss of Peripheral Vision, Pain, Photophobia, Requires Corrective Lenses, Sees Flashes, Spots in Vision, Tunnel Vision, Other Visual Disturbances, Loss of Vision, Other Nose/Mouth/Throat: absent: As Per HPI, Epistaxis, Nasal Congestion, Nasal Discharge, Nasal Obstruction, Nasal Trauma, Nose Pain, Post Nasal Drip, Sinus Pain, Sinus Pressure, Bleeding Gums, Change in Voice, Dental Pain, Dry Mouth, Dysphagia, Halitosis, Hoarsness, Lip Swelling, Mouth Lesions, Mouth Pain, Odynophagia, Sore Throat, Throat Swelling, Tongue Swelling, Facial Pain, Neck Pain, Neck Mass, Other - Cardiovascular Cardiovascular: Syncope - Respiratory Respiratory: absent: As Per HPI, Cough, Dyspnea, Hemoptysis, Dyspnea on Exer tion, Wheezing, Snoring, Stridor, Pain on Inspiration, Chest Congestion, Excessive Mucous Production, Change in Mucous Color, Pain with Coughing, Other - Gastrointestinal Gastrointestinal: absent: As Per HPI, Abdominal Pain, Belching, Bloating, Change in Bowel Habits, Change in Stool Character, Coffee Ground Emesis, Constipation, Cramping, Diarrhea, Dyspepsia, Dysphagia, Early Satiety, Excessive Flatus, Fecal Incontinence, Heartburn, Hematemesis, Hematochezia, Loose Stools, Melena, Nausea, Odynophagia, Temesmus, Vomiting, Other - Genitourinary Genitourinary: absent: As Per HPI, Change in Urinary Stream, Difficulty Urinating, Dysuria, Flank Pain, Hematuria, Pyuria, Nocturia, Urinary Incontinence, Urinary Frequency, Urinary Hesitance, Urinary Urgency, Voiding Freq/Small Amts, Freq UTI, Hx Renal/Bladder Calculi, Hx /Renal Surgery, Bladder Distension, Other - Musculoskeletal Musculoskeletal: absent: As Per HPI, Abnormal Gait, Arthralgias, Atrophy, Back Pain, Deformity, Joint Swelling, Limited Range of Motion, Loss of Height, Muscle Cramps, Muscle Weakness, Myalgias, Neck Pain, Numbness, Radiating Pain into Limb, Stiffness, Tingling, Other - Integumentary Integumentary: absent: As Per HPI, Acne, Alopecia, Bleeding Lesions, Change in Hair, Change in Nails, Change in Pigmentation, Changing Lesions, Dry Skin, Erythema, Furuncle, Hirsutism, Lesions, New Lesions, Non-Healing Lesions, Photosensitivity, Pruritus, Rash, Skin Pain, Skin Ulcer, Sores, Striae, Swelling, Unusual Bruising, Wounds, Jaundice, Other - Neurological Neurological: absent: As Per HPI, Abnormal Gait, Abnormal Hearing, Abnormal Movements, Abnormal Speech, Behavioral Changes, Burning Sensations, Confusion, Convulsions, Disequilibrium, Dizziness, Numbness, Focal Weakness, Frequent Falls, Headaches, Lack of Coordination, Loss of Vision, Memory Loss, Paresthesias, Radicular Pain, Restless Legs, Sensory Deficit, Syncope, Tingling, Tremor, Vertigo, Weakness, Other Visual Disturbances, Other - Psychiatric Psychiatric: absent: As Per HPI, Abnormal Sleep Pattern, Anhedonia, Anxiety, Auditory Hallucinations, Behavioral Changes, Change in Appetite, Change in Libido, Confusion, Depression, Difficulty Concentrating, Hallucinations, Homicidal Ideation, Hopelessness, Irritability, Memory Loss, Mood Swings, Panic Attacks, Paranoia, Suicidal Ideation, Visual Hallucinations, Tactile Hallucinations, Other - Endocrine Endocrine: absent: As Per HPI, Change in Body Appearance, Change in Libido, Cold Intolorance, Deepening of Voice, Excessive Sweating, Fatigue, Flushing, Heat Intolorance, Increase in Ring/Shoe/Hat Size, Palpitations, Polydipsia, Polyphagia, Polyuria, Other - Hematologic/Lymphatic Hematologic: absent: As Per HPI, Easy Bleeding, Easy Bruising, Lymphadenopathy, Other Past Patient History - Infectious Disease Hx of Infectious Diseases: None - Past Medical History & Family History Past Medical History?: Yes - Past Social History Smoking Status: Never Smoked - CARDIAC Hx Cardia Arrhythmia: Yes Hx Hypercholesterolemia: Yes Hx Hypertension: Yes Hx Peripheral Edema: Yes - PULMONARY Hx Asthma: Yes Hx Sleep Apnea: Yes - NEUROLOGICAL Hx Transient Ischemic Attacks (TIA): Yes - HEENT Hx HEENT Problems: No - RENAL Hx Chronic Kidney Disease: Yes - ENDOCRINE/METABOLIC Hx Endocrine Disorders: Yes Hx Diabetes Mellitus Type 1: Yes - HEMATOLOGICAL/ONCOLOGICAL Hx Blood Disorders: Yes - INTEGUMENTARY Hx Dermatological Problems: Yes Hx Psoriasis: Yes (mild) - MUSCULOSKELETAL/RHEUMATOLOGICAL Hx Falls: Yes - GASTROINTESTINAL Hx Gall Bladder Disease: Yes Hx Gastritis: Yes - GENITOURINARY/GYNECOLOGICAL Hx Genitourinary Disorders: No - PSYCHIATRIC Hx Anxiety: Yes Hx Depression: Yes Hx Substance Use: No - SURGICAL HISTORY Hx Cholecystectomy: Yes Hx Coronary Artery Bypass Graft: Yes (september 2008 x4) Hx Coronary Stent: Yes (9 stents) - ANESTHESIA Hx Anesthesia: Yes Hx Anesthesia Reactions: No Hx Malignant Hyperthermia: No Meds Allergies/Adverse Reactions: Allergies Allergy/AdvReac Type Severity Reaction Status Date / Time iodine Allergy Severe URTICARIA Verified 04/03/18 13:18 latex Allergy Severe URTICARIA Verified 04/03/18 13:18 seafood Allergy Severe URTICARIA Uncoded 04/03/18 13:18 - Medications Medications: Current Medications Aspirin (Aspirin Chewable) 81 mg PO DAILY [facility] Last Admin: 04/04/18 10:30 Dose: 81 mg Clopidogrel Bisulfate (Plavix) 75 mg PO DAILY [facility] Last Admin: 04/04/18 10:30 Dose: 75 mg Enoxaparin Sodium (Lovenox) 40 mg SC DAILY [facility] Last Admin: 04/04/18 10:30 Dose: 40 mg Gabapentin (Neurontin) 300 mg PO BID [facility] Last Admin: 04/04/18 17:22 Dose: 300 mg Glimepiride (Amaryl) 1 mg PO DAILY [facility] Last Admin: 04/04/18 12:51 Dose: 1 mg Insulin Aspart (Novolog) 0 unit SC [facility]; Protocol Last Admin: 04/04/18 17:22 Dose: 3 unit Loratadine (Claritin) 10 mg PO DAILY [facility] Last Admin: 04/04/18 10:30 Dose: 10 mg Meclizine HCl (Antivert) 12.5 mg PO BID PRN PRN Reason: Dizziness Metoprolol Succinate (Toprol Xl) 100 mg PO DAILY [facility] Last Admin: 04/04/18 10:30 Dose: 100 mg Pantoprazole Sodium (Protonix Ec Tab) 40 mg PO DAILY [facility] Last Admin: 04/04/18 10:30 Dose: 40 mg Ranolazine (Ranexa) 1,000 mg PO BID [facility] Last Admin: 04/04/18 17:22 Dose: 1,000 mg Physical Exam - Constitutional Appears: Non-toxic - Head Exam Head Exam: NORMAL INSPECTION - Eye Exam Eye Exam: Normal appearance - ENT Exam ENT Exam: Mucous Membranes Moist - Neck Exam Neck exam: Positive for: Full Rom - Respiratory Exam Respiratory Exam: NORMAL BREATHING PATTERN - Cardiovascular Exam Cardiovascular Exam: REGULAR RHYTHM - GI/Abdominal Exam GI & Abdominal Exam: Normal Bowel Sounds - Rectal Exam Rectal Exam: Deferred - Extremities Exam Extremities exam: Positive for: normal inspection, pedal edema - Back Exam Back exam: NORMAL INSPECTION - Neurological Exam Neurological exam: Alert, Oriented x3 - Psychiatric Exam Psychiatric exam: Normal Affect - Skin Skin Exam: Normal Color Results - Vital Signs Recent Vital Signs: Last Vital Signs Temp 97.6 F 04/04/18 17:14 Pulse 63 04/04/18 17:14 Resp 20 04/04/18 17:14 BP 149/79 04/04/18 17:14 Pulse Ox 97 04/04/18 17:14 - Labs Result Diagrams: 04/03/18 12:50 04/03/18 21:16 Labs: Laboratory Results - last 24 hr 04/03/18 04/04/18 04/04/18 21:16 06:17 11:24 Sodium 136 Potassium 4.1 Chloride 100 Carbon Dioxide 25 Anion Gap 15 BUN 17 Creatinine 0.8 Est GFR ( Amer) > 60 Est GFR (Non-Af Amer) > 60 POC Glucose (mg/dL) 283 H Random Glucose 282 H Hemoglobin A1c 9.6 H Calcium 9.1 Troponin I < 0.0120 Free T4 TSH 3rd Generation Prolactin 04/04/18 04/04/18 04/04/18 11:24 11:24 11:44 Sodium Potassium Chloride Carbon Dioxide Anion Gap BUN Creatinine Est GFR ( Amer) Est GFR (Non-Af Amer) POC Glucose (mg/dL) 480 H* Random Glucose Hemoglobin A1c Calcium Troponin I Free T4 1.25 TSH 3rd Generation 1.21 Prolactin 17.3 04/04/18 16:31 Sodium Potassium Chloride Carbon Dioxide Anion Gap BUN Creatinine Est GFR ( Amer) Est GFR (Non-Af Amer) POC Glucose (mg/dL) 218 H Random Glucose Hemoglobin A1c Calcium Troponin I Free T4 TSH 3rd Generation Prolactin - EKG Data EKG Interpreted by: Myself EKG shows normal: Sinus rhythm Assessment & Plan (1) Syncope Assessment and Plan: patient has had 2 episodes of unexplained syncope. recommend implantable loop recorder. Risks and benefits were discussed. Dr Arechiga contacted for loop recorder implant. Status: Acute (2) CAD (coronary artery disease) Assessment and Plan: maintain antiplatelet therapy Status: Acute (3) Diabetes Assessment and Plan: risk factor for CAD. aggressive glucose control Status: Acute (4) HTN (hypertension) Assessment and Plan: blood pressure control Status: Acute
--- NOTE | 2018-04-04 23:03 | CARD ---
APPROVED REPORT Date of service: 04/03/2018 EKG Measurement Heart [id number] <Conclusion> Sinus bradycardia Possible Left atrial enlargement ST & T wave abnormality, consider lateral ischemia Abnormal ECG
--- NOTE | 2018-04-05 07:02 | CON ---
DATE: 04/04/2018 TIME OF EVALUATION: 07:10 a.m. ATTENDING PHYSICIAN: Shellie Mcelroy MD LOCATION: The patient's room #563, bed A. REASON FOR CONSULTATION: Syncopal attack. CHIEF COMPLAINT: The patient was brought in to [facility] with a history of second episode in two weeks. From neurological point of view, I was called in to evaluate her for further management. HISTORY OF PRESENT ILLNESS: Ms. Olivia Lebron is a 52-year-old right-handed moderately obese Egyptian speaking Thai female presenting with a second episode of syncopal attack. She describes that while she was walking with her father as an abrupt onset of blurred vision, chest discomfort. The next thing she realized is that she passed out. No obvious trauma at the scene. No bowel or bladder incontinence or bitten tongue. The patient admits another episode two weeks ago while she was visiting her cousin in the [facility]. She developed blurred vision and chest discomfortness. She passed out at the scene. By the time she woke up she was in the emergency room with IVs on. She could not recall the event how she came to the emergency room. That episode associating with urinary incontinence. At present, she denies headache, visual or bulbar dysfunction and no focal weakness at present. PAST MEDICAL HISTORY: Hypertension, dyslipidemia, [id number] diabetes mellitus, status post CABG in the past. MEDICATIONS: Aspirin, Antivert, Claritin, Lovenox, Neurontin, Plavix, Protonix, Toprol. REVIEW OF SYSTEMS: Recurrent syncopal attack. The rest of the 12-point system being reviewed. PHYSICAL EXAMINATION: VITAL SIGNS: Blood pressure 122/73, mean artery pressure of 89, respiratory rate 16, temperature afebrile. NECK: Supple. No carotid bruits. HEART: Sounds regular. CHEST: Fair air entry. EXTREMITIES: No edema in legs. NEUROLOGIC EXAMINATION: Mental status examination, she is awake, alert and oriented to person, place and time. Speech is clear. Naming, repetition, fluency, comprehension all within normal. Significant retrograde amnesia. No antegrade amnesia. No hallucination. No suicidal ideation. Cranial nerve examination, visual field intact. Pupils reactive to light. Extraocular movement normal. No nystagmus. No facial sensory deficit. No facial asymmetry. Hearing is normal. Tongue is midline. Good gag. Motor examination, on outstretched hand with eyes closed, no drift noted. Power is symmetric on either side. Deep tendon reflexes biceps, brachialis, triceps all are absent. Both knees are absent. Both ankles are absent. Plantars have equivocal response. Sensory examination, bilateral distal symmetric sensory motor neuropathy. There is no cortical sensory loss. Coordination, [id number] test is intact. Gait is deferred at this time. CONCLUSION: Ms. Olivia Lebron has been presenting as per neurological examination with episode of two recurrent syncopal attacks preceding with blurry vision, chest discomfortness. From neurological point of view, seizures should be ruled out. This could be an intracranial pathology. However, cardiac cause should be ruled out because of the patient carrying significant risk factors. LABORATORY WORKUP: WBC 4.4, hemoglobin 14.9, hematocrit 43.3, platelets 170. PT 11.6, INR 1.1, PTT 27. Sodium 136, potassium 4.1, chloride 100, bicarbonate 25, BUN 17, GFR more than 60, 283. RECOMMENDATIONS: 1. MRI of the brain. 2. Seizure precaution. 3. Continue the present management with antiplatelets. 4. Diabetic control. 5. The patient known to have sleep apnea. Advised to continue the CPAP at present while she is sleeping. 6. Weight reduction and diabetic control and blood pressure control had been discussed with her. 7. The patient will be followed closely with you. James Stauffer MD
[2018-04-05 07:18] LABS: BASO % 0.5 % (0.0-2.0); HEMOGLOBIN 13.8 g/dL (11.0-16.0); LYMPH # 1.4 K/uL (1.0-4.3); LYMPH % 30.5 % (20.0-40.0); MEAN CELL VOLUME 95.6 fL (81.0-99.0); MEAN CORPUSCULAR HEMOGLOBIN 32.7 pg (27.0-31.0); MEAN CORPUSCULAR HGB CONC 34.3 g/dL (33.0-37.0); MEAN PLATELET VOLUME 10.4 fL (7.2-11.7); MONO # 0.6 K/uL (0.0-0.8); MONO % 12.9 % (0.0-10.0); NEUT # 2.6 K/uL (1.8-7.0); NEUT % 55.1 % (50.0-75.0); NRBC % 0.1 % (0.0-2.0); RBC 4.2 Mil/uL (3.80-5.20); RED CELL DISTRIBUTION WIDTH 13.8 % (11.5-14.5); WHITE BLOOD COUNT 4.7 K/uL (4.8-10.8)
[2018-04-05 07:38] LABS: ALB/GLOB RATIO 1.2 (1.0-2.1); ALT/SGPT 31 U/L (9-52); AST/SGOT 21 U/L (14-36); BLOOD UREA NITROGEN 20 mg/dL (7-17); CALCIUM 9.2 mg/dl (8.6-10.4); GFR NON-AFRICAN AMERICAN > 60
[2018-04-05] MEDS ORDERED: ceFAZolin 1 gm FROZEN Premix 0 GM/0 ML ML IVPB ONE (07:39)
[2018-04-05] MEDS ORDERED: Lidocaine 2% PF (10 ml) Amp ONE (07:39)
[2018-04-05] MEDS: (Novolog) Insulin Aspart, Recombinant 100 u/ml 10 ml vial SC SCH ×4 (08:24→21:12)
--- NOTE | 2018-04-05 10:07 | CP.PCM.PN ---
Subjective - Date & Time of Evaluation Date of Evaluation: 04/05/18 Time of Evaluation: 10:05 - Subjective Subjective: PGY-2 Progress Note Patient seen and examined at bedside. Per nursing no acute events occurred overnight .Patient denies any chest pain, shortness of breath ,fevers, chills, nausea, vomiting, or any other complaints. 52 year old female with a past medical history of hypertension, dyslipidemia, dm, cad who comes in after having a syncopal episode while walking. The patient states she began to have blurry vision and shortly after had blacked out. Patient has two previous documented fall hospital visits at our emergency department. Patient has an extensive cardiac history including a cabg. Patient denies any chest pain, shortness of breath, fevers, chills, or any other complaints. Medical history : hypertension, dyslipidemia, dm, cad Sugical history: CABG, 3 c -sections, cholecystectomy Social history: Denies drugs, tobacco, or alchol use Allergies: Iodine, latex, seafood Objective - Vital Signs/Intake and Output Vital Signs (last 24 hours): Temp Pulse Resp BP Pulse Ox 97.6 F 64 20 147/79 96 04/05/18 00:00 04/05/18 00:00 04/05/18 00:00 04/05/18 00:00 04/05/18 00:00 - Medications Medications: Current Medications Aspirin (Aspirin Chewable) 81 mg PO DAILY [facility] Last Admin: 04/04/18 10:30 Dose: 81 mg Clopidogrel Bisulfate (Plavix) 75 mg PO DAILY [facility] Last Admin: 04/04/18 10:30 Dose: 75 mg Enoxaparin Sodium (Lovenox) 40 mg SC DAILY [facility] Last Admin: 04/04/18 10:30 Dose: 40 mg Gabapentin (Neurontin) 300 mg PO BID [facility] Last Admin: 04/04/18 17:22 Dose: 300 mg Glimepiride (Amaryl) 1 mg PO DAILY [facility] Last Admin: 04/04/18 12:51 Dose: 1 mg Insulin Aspart (Novolog) [address] [facility]; Protocol Last Admin: 04/05/18 08:24 Dose: 6 unit Loratadine (Claritin) 10 mg PO DAILY [facility] Last Admin: 04/04/18 10:30 Dose: 10 mg Meclizine HCl (Antivert) 12.5 mg PO BID PRN PRN Reason: Dizziness Metoprolol Succinate (Toprol Xl) 100 mg PO DAILY [facility] Last Admin: 04/04/18 10:30 Dose: 100 mg Pantoprazole Sodium (Protonix Ec Tab) 40 mg PO DAILY [facility] Last Admin: 04/04/18 10:30 Dose: 40 mg Ranolazine (Ranexa) 1,000 mg PO BID [facility] Last Admin: 04/04/18 17:22 Dose: 1,000 mg - Labs Labs: 04/05/18 06:59 04/05/18 06:59 PT 11.6 SECONDS (9.7-12.2) 04/03/18 12:50 INR 1.1 04/03/18 12:50 APTT 27 SECONDS (21-34) 04/03/18 12:50 - Eye Exam Eye Exam: EOMI, Normal appearance, PERRL Pupil Exam: NORMAL ACCOMODATION, PERRL - ENT Exam ENT Exam: Mucous Membranes Moist, Normal Oropharynx - Respiratory Exam Respiratory Exam: Clear to Ausculation Bilateral, NORMAL BREATHING PATTERN. absent: Respiratory Distress - Cardiovascular Exam Cardiovascular Exam: REGULAR RHYTHM, +S1, +S2 - GI/Abdominal Exam GI & Abdominal Exam: Soft, Normal Bowel Sounds - Back Exam Back Exam: NORMAL INSPECTION. absent: paraspinal tenderness - Neurological Exam Neurological Exam: Alert, Awake, CN II-XII Intact, Normal Gait, Oriented x3 - Psychiatric Exam Psychiatric exam: Normal Affect, Normal Mood Assessment and Plan - Assessment and Plan (Free Text) Plan: 52 year old female with a history of dm, hypertension, cad s/p cabg, dyslipidemia who was admitted for syncopal episode. Syncope Cardiology Dr. Clay consulted: : recommend implantable loop recorder. Neurology Dr. Stauffer consulted :MRI Brain ordered :Seizure precautions :Continue with antiplatelets :Diabetic control MRI taken. Will f/u with read Hypertension -Metoprolol Succinate 100mg PO Daily DM -Amaryl 1mg po daily -ISS -Accuchecks ACHS CAD -S/P cabg -Aspirin 81mg PO Daily -Plavix 75 mg PO Daily PPX -Lovenox 40mg sc Daily -Protonix 40mg PO Daily All mangaement per Dr. Spencer Mcelroy. Abiodun Quinn, PGY-2
[2018-04-05] MEDS: Metoprolol Succinate 100 mg XL Tab PO SCH (10:52)
[2018-04-05] MEDS: Ranolazine 500 mg Extended Release Tablets PO SCH ×2 (10:52→17:51)
[2018-04-05] MEDS: Pantoprazole 40 mg EC Tab PO SCH (10:52)
[2018-04-05] MEDS: Enoxaparin 40 mg Syringe SC SCH (10:53)
--- NOTE | 2018-04-05 12:33 | VASCLAB ---
Date of service: 04/04/2018 PROCEDURE: Carotid Duplex Exam. HISTORY: assess stenosis COMPARISON: None available. TECHNIQUE: Grayscale and duplex Doppler evaluation of the cervical carotid and vertebral arteries were performed. The common carotid, carotid bifurcations and cervical Internal Carotid Artery (ICA) and proximal External Carotid Artery (ECA) were evaluated. The vertebral arteries were evaluated for gross patency and flow direction. Report prepared by Nick Barrera, BS, RVT FINDINGS: RIGHT CAROTID ARTERIES: 1. Common Carotid Artery: No significant focal plaque formation of the right common carotid artery. Maximum Peak Systolic velocity: 83 cm/sec: End-diastolic velocity 16 cm/sec. 2. Carotid Bifurcation: plaque formation. Maximum Peak Systolic velocity: 90 cm/sec: End-diastolic velocity 7 cm/sec. 3. Internal Carotid Artery: Plaque description: 3.1. Proximal Segment: Peak systolic velocity 75 cm/sec: End-diastolic velocity 17 cm/sec - % stenosis 0-15% 3.2. Middle Segment: Peak systolic velocity 107 cm/sec: End-diastolic velocity 27 cm/sec - % stenosis 0-15% 3.3. Distal Segment: Peak systolic velocity 71 cm/sec: End-diastolic velocity 17 cm/sec - % stenosis 0-15% 4. External Carotid Artery: No significant focal plaque formation. Peak systolic velocity 94 cm/sec 5. ICA/CCA Ratio: 1.3 LEFT CAROTID ARTERIES: 1. Common Carotid Artery: No significant focal plaque formation of the left common carotid artery. Maximum Peak Systolic velocity: 96 cm/sec: End-diastolic velocity 22 cm/sec. 2. Carotid Bifurcation: plaque formation. Maximum Peak Systolic velocity: 95 cm/sec: End-diastolic velocity 27 cm/sec. 3. Internal Carotid Artery: Plaque description: 3.1. Proximal Segment: Peak systolic velocity 138 cm/sec: End-diastolic velocity 38 cm/sec - % stenosis 0-15% 3.2. Middle Segment: Peak systolic velocity 58 cm/sec: End-diastolic velocity 18 cm/sec - % stenosis 0-15% 3.3. Distal Segment: Peak systolic velocity 68 cm/sec: End-diastolic velocity 19 cm/sec - % stenosis 0-15% 4. External Carotid Artery: No significant focal plaque formation. Peak systolic velocity 74 cm/sec 5. ICA/CCA Ratio: 1.4 VERTEBRAL ARTERIES: 1. Right Vertebral Artery: The right vertebral artery flow direction is antegrade. 2. Left Vertebral Artery: The left vertebral artery flow direction is antegrade. OTHER FINDINGS: 1. Right Brachial Blood pressure: 150 mmHg. 2. Left Brachial Blood pressure: 146 mmHg. IMPRESSION: RIGHT: Duplex scan does not suggest hemodynamically significant stenosis of the right extracranial carotid arteries. LEFT: Duplex scan does not suggest hemodynamically significant stenosis of the left extracranial carotid arteries.
--- NOTE | 2018-04-05 12:52 | PN ---
DATE: 04/05/2018 TIME OF EVALUATION: 07:15 a.m. NEUROLOGICAL PROBLEM: Syncopal attack. PHYSICAL EXAMINATION: VITAL SIGNS: Blood pressure 147/79, mean artery pressure of 101, respiratory rate 18, and temperature 97.6 with a pulse rate regular at the rate of 64. The patient is up and ambulatory at this time. She slept good. No new neurological symptoms. The patient did have MRI of the brain which showed periventricular ischemic changes without any new acute ischemic process. No space-occupying lesions. Electroencephalogram showed mild slow activities for her age without any focal slowing or paroxysmal activities. WORKUP: Hemoglobin A1c is 9.5. Her echocardiogram shows ST elevation with left atrial enlargement. ASSESSMENT AND PLAN: The patient going for cardiological studies. From neurological point of view, the patient is stable. Recommended to control her diabetes. Continue the present management. The patient is advised to schedule to see me as outpatient for a possible sleep-related breathing disorder which could be the co-founding risk factors, worsening her existing problem. At this point, I am signing off from neurological followup. If any change in neuro status, please do not hesitate to call me back. James Stauffer MD
--- NOTE | 2018-04-05 13:38 | MRI ---
Date of service: 04/04/2018 PROCEDURE: MRI BRAIN WITHOUT CONTRAST HISTORY: POLE TESTER-vbi COMPARISON: Noncontrast head CT from 10/22/2017. TECHNIQUE: Multiplanar, multisequence MR images of the brain were obtained without intravenous contrast enhancement. FINDINGS: HEMORRHAGE: None DWI: No evidence of an acute or early subacute infarction. BRAIN PARENCHYMA: There are mild chronic microangiopathic changes. There is no mass, mass effect or abnormal extra-axial fluid collection. There is no territorial infarction. The midline sagittal structures are normal. VENTRICLES: There is mild age-related global parenchymal volume loss and proportionate enlargement of the ventricles and cortical sulci. CRANIUM: There is normal bone marrow signal pattern. ORBITS: Grossly unremarkable. PARANASAL SINUSES/MASTOIDS: Predominantly clear. VASCULAR SYSTEM: There are normal signal voids in the larger intracranial arteries. OTHER FINDINGS: None. IMPRESSION: No acute intracranial abnormality. Mild chronic microangiopathic changes and mild age-related global parenchymal volume loss.
--- NOTE | 2018-04-05 18:30 | CP.PCM.PN ---
Subjective - Date & Time of Evaluation Date of Evaluation: 04/05/18 Time of Evaluation: 10:15 - Subjective Subjective: clinically same Objective - Vital Signs/Intake and Output Vital Signs (last 24 hours): Temp Pulse Resp BP Pulse Ox 97.4 F L 61 20 106/68 96 04/05/18 15:00 04/05/18 15:00 04/05/18 15:00 04/05/18 15:00 04/05/18 15:00 Intake and Output: 04/05/18 04/05/18 06:59 18:59 Intake Total 1100 Balance 1100 - Medications Medications: Current Medications Aspirin (Aspirin Chewable) 81 mg PO DAILY [facility] Last Admin: 04/05/18 10:40 Dose: Not Given Clopidogrel Bisulfate (Plavix) 75 mg PO DAILY [facility] Last Admin: 04/05/18 10:40 Dose: Not Given Enoxaparin Sodium (Lovenox) 40 mg SC DAILY [facility] Last Admin: 04/05/18 10:53 Dose: Not Given Gabapentin (Neurontin) 300 mg PO BID [facility] Last Admin: 04/05/18 17:51 Dose: 300 mg Glimepiride (Amaryl) 1 mg PO DAILY [facility] Last Admin: 04/05/18 10:54 Dose: 1 mg Insulin Aspart (Novolog) 0 unit SC [facility]; Protocol Last Admin: 04/05/18 17:52 Dose: 2 unit Loratadine (Claritin) 10 mg PO DAILY [facility] Last Admin: 04/05/18 10:52 Dose: 10 mg Meclizine HCl (Antivert) 12.5 mg PO BID PRN PRN Reason: Dizziness Metoprolol Succinate (Toprol Xl) 100 mg PO DAILY [facility] Last Admin: 04/05/18 10:52 Dose: 100 mg Pantoprazole Sodium (Protonix Ec Tab) 40 mg PO DAILY [facility] Last Admin: 04/05/18 10:52 Dose: 40 mg Ranolazine (Ranexa) 1,000 mg PO BID [facility] Last Admin: 04/05/18 17:51 Dose: 1,000 mg - Labs Labs: 04/05/18 06:59 04/05/18 06:59 PT 11.6 SECONDS (9.7-12.2) 04/03/18 12:50 INR 1.1 04/03/18 12:50 APTT 27 SECONDS (21-34) 04/03/18 12:50 - Constitutional Appears: Well - Head Exam Head Exam: ATRAUMATIC, NORMAL INSPECTION, NORMOCEPHALIC - Eye Exam Eye Exam: EOMI, Normal appearance, PERRL Pupil Exam: NORMAL ACCOMODATION, PERRL - ENT Exam ENT Exam: Mucous Membranes Moist, Normal Exam - Neck Exam Neck Exam: Full ROM, Normal Inspection. absent: Lymphadenopathy - Respiratory Exam Respiratory Exam: Decreased Breath Sounds - Cardiovascular Exam Cardiovascular Exam: REGULAR RHYTHM, +S1, +S2 - GI/Abdominal Exam GI & Abdominal Exam: Soft, Diminished Bowel Sounds - Rectal Exam Rectal Exam: Deferred
--- NOTE | 2018-04-05 21:25 | CP.PCM.PN ---
Subjective - Date & Time of Evaluation Date of Evaluation: 04/05/18 Time of Evaluation: 21:00 - Subjective Subjective: Loop recorder not scheduled until Wednesday givne antiplatelet therapy and lovenox. can consdier discharge and have outpatient event monitor or schedule loop recorder if no other inpatient testing is required. Objective - Vital Signs/Intake and Output Vital Signs (last 24 hours): Temp Pulse Resp BP Pulse Ox 97.4 F L 64 20 106/68 96 04/05/18 15:00 04/05/18 18:00 04/05/18 15:00 04/05/18 15:00 04/05/18 15:00 Intake and Output: 04/05/18 04/06/18 18:59 06:59 Intake Total 1100 Balance 1100 - Medications Medications: Current Medications Aspirin (Aspirin Chewable) 81 mg PO DAILY [facility] Last Admin: 04/05/18 10:40 Dose: Not Given Clopidogrel Bisulfate (Plavix) 75 mg PO DAILY [facility] Last Admin: 04/05/18 10:40 Dose: Not Given Enoxaparin Sodium (Lovenox) 40 mg SC DAILY [facility] Last Admin: 04/05/18 10:53 Dose: Not Given Gabapentin (Neurontin) 300 mg PO BID [facility] Last Admin: 04/05/18 17:51 Dose: 300 mg Glimepiride (Amaryl) 1 mg PO DAILY [facility] Last Admin: 04/05/18 10:54 Dose: 1 mg Insulin Aspart (Novolog) 0 unit SC [facility]; Protocol Last Admin: 04/05/18 21:12 Dose: Not Given Loratadine (Claritin) 10 mg PO DAILY [facility] Last Admin: 04/05/18 10:52 Dose: 10 mg Meclizine HCl (Antivert) 12.5 mg PO BID PRN PRN Reason: Dizziness Metoprolol Succinate (Toprol Xl) 100 mg PO DAILY [facility] Last Admin: 04/05/18 10:52 Dose: 100 mg Pantoprazole Sodium (Protonix Ec Tab) 40 mg PO DAILY [facility] Last Admin: 04/05/18 10:52 Dose: 40 mg Ranolazine (Ranexa) 1,000 mg PO BID [facility] Last Admin: 04/05/18 17:51 Dose: 1,000 mg - Labs Labs: 04/05/18 06:59 04/05/18 06:59 PT 11.6 SECONDS (9.7-12.2) 04/03/18 12:50 INR 1.1 04/03/18 12:50 APTT 27 SECONDS (21-34) 04/03/18 12:50 Assessment and Plan (1) Syncope Status: Acute (2) CAD (coronary artery disease) Status: Acute (3) Diabetes Status: Acute (4) HTN (hypertension) Status: Acute
[2018-04-06] MEDS ORDERED: Sodium Chloride 0.9% 1,000 ML IV ONE (00:26)
[2018-04-06] MEDS: (Novolog) Insulin Aspart, Recombinant 100 u/ml 10 ml vial SC SCH ×4 (09:08→21:54)
--- NOTE | 2018-04-06 09:29 | EEG ---
DATE: 04/04/2018 This is a 16-channel electroencephalogram of awake and drowsy adult. During the study, photic stimulation was performed. Hyperventilation was not performed. The resting electroencephalogram continues to have 30 to 40 microvolt diffuse, high theta activities noted at the posterior dominant rhythm. Intermittent movement artifact contaminated the background rhythm. Loose pulse wave artifact noted diffusely. The photic stimulation did not evoke any response noted at 2 to 20 Hz. IMPRESSION: This is an abnormal electroencephalogram of awake and drowsy adult. During the study, neither electroencephalographic, paroxysmal activities nor focal slowing noted. James Stauffer MD
--- NOTE | 2018-04-06 10:23 | CP.PCM.PN ---
Subjective - Date & Time of Evaluation Date of Evaluation: 04/06/18 Time of Evaluation: 10:23 - Subjective Subjective: PGY-2 Progress Note Patient seen and examined at bedside. Per nursing no acute events occurred overnight .Patient denies any chest pain, shortness of breath ,fevers, chills, nausea, vomiting, or any other complaints. Objective - Vital Signs/Intake and Output Vital Signs (last 24 hours): Temp Pulse Resp BP Pulse Ox 98.2 F 60 20 146/58 L 96 04/06/18 08:00 04/06/18 08:00 04/06/18 08:00 04/06/18 08:00 04/06/18 08:00 - Medications Medications: Current Medications Aspirin (Aspirin Chewable) 81 mg PO DAILY [facility] Last Admin: 04/05/18 10:40 Dose: Not Given Clopidogrel Bisulfate (Plavix) 75 mg PO DAILY [facility] Last Admin: 04/05/18 10:40 Dose: Not Given Enoxaparin Sodium (Lovenox) 40 mg SC DAILY [facility] Last Admin: 04/05/18 10:53 Dose: Not Given Gabapentin (Neurontin) 300 mg PO BID [facility] Last Admin: 04/05/18 17:51 Dose: 300 mg Glimepiride (Amaryl) 1 mg PO DAILY [facility] Last Admin: 04/05/18 10:54 Dose: 1 mg Insulin Aspart (Novolog) 0 unit SC [facility]; Protocol Last Admin: 04/06/18 09:08 Dose: 4 unit Loratadine (Claritin) 10 mg PO DAILY [facility] Last Admin: 04/05/18 10:52 Dose: 10 mg Meclizine HCl (Antivert) 12.5 mg PO BID PRN PRN Reason: Dizziness Metoprolol Succinate (Toprol Xl) 100 mg PO DAILY [facility] Last Admin: 04/05/18 10:52 Dose: 100 mg Pantoprazole Sodium (Protonix Ec Tab) 40 mg PO DAILY [facility] Last Admin: 04/05/18 10:52 Dose: 40 mg Ranolazine (Ranexa) 1,000 mg PO BID [facility] Last Admin: 04/05/18 17:51 Dose: 1,000 mg - Labs Labs: 04/05/18 06:59 04/05/18 06:59 PT 11.6 SECONDS (9.7-12.2) 04/03/18 12:50 INR 1.1 10/14/18 12:50 APTT 27 SECONDS (21-34) 04/03/18 12:50 - Head Exam Head Exam: ATRAUMATIC, NORMAL INSPECTION - Eye Exam Eye Exam: EOMI, Normal appearance Pupil Exam: NORMAL ACCOMODATION, PERRL - ENT Exam ENT Exam: Mucous Membranes Moist, Normal Exam - Neck Exam Neck Exam: Normal Inspection. absent: Lymphadenopathy - Respiratory Exam Respiratory Exam: Clear to Ausculation Bilateral, NORMAL BREATHING PATTERN - Cardiovascular Exam Cardiovascular Exam: REGULAR RHYTHM, +S1, +S2 - GI/Abdominal Exam GI & Abdominal Exam: Soft, Normal Bowel Sounds - Extremities Exam Extremities Exam: Full ROM, Normal Capillary Refill - Neurological Exam Neurological Exam: Alert, Awake, CN II-XII Intact, Normal Gait, Oriented x3 - Psychiatric Exam Psychiatric exam: Normal Affect, Normal Mood - Skin Skin Exam: Dry, Intact, Normal Color Assessment and Plan - Assessment and Plan (Free Text) Plan: 52 year old female with a history of dm, hypertension, cad s/p cabg, dyslipidemia who was admitted for syncopal episode. Syncope Cardiology Dr. Clay consulted: : recommend implantable loop recorder. :can only be scheduled for Wednesday. Neurology Dr. Stauffer consulted :MRI Brain ordered :Seizure precautions :Continue with antiplatelets :Diabetic control MRI taken :no acute intracranial abnormality :mild chronic microangiopathic changes and mild parenchymal volume loss Carotids doppler :does not suggest hemodynamically stenosis EEG :abnormal EEG of awake and drowsy cycle Hypertension -Metoprolol Succinate 100mg PO Daily DM -Amaryl 1mg po daily -ISS -Accuchecks ACHS CAD -S/P cabg -Aspirin 81mg PO Daily -Plavix 75 mg PO Daily Diabetic Nephropathy -Neurontin 300mg PO BID Vertigo -Meclizine 12.5mg P BID PRN Allergies -12.5mg PO BID PRN PPX -Lovenox 40mg sc Daily -Protonix 40mg PO Daily Dispo: Patient expected to have Loop Recorder placed on Wednesday with Dr. Arechiga. All management per Dr. Spencer Mcelroy. Abiodun Quinn, PGY-2
[2018-04-06] MEDS: Enoxaparin 40 mg Syringe SC SCH (10:37)
[2018-04-06] MEDS: Pantoprazole 40 mg EC Tab PO SCH (10:37)
[2018-04-06] MEDS: Metoprolol Succinate 100 mg XL Tab PO SCH (10:37)
[2018-04-06] MEDS: Ranolazine 500 mg Extended Release Tablets PO SCH ×2 (10:40→18:52)
--- NOTE | 2018-04-06 18:49 | CP.PCM.PN ---
Subjective - Date & Time of Evaluation Date of Evaluation: 04/06/18 Time of Evaluation: 18:40 - Subjective Subjective: patient had headache and intermittent dizziness. Objective - Vital Signs/Intake and Output Vital Signs (last 24 hours): Temp Pulse Resp BP Pulse Ox 97.4 F L 68 20 110/56 L 95 04/06/18 15:59 04/06/18 15:59 04/06/18 15:59 04/06/18 15:59 04/06/18 15:59 Intake and Output: 04/06/18 04/06/18 06:59 18:59 Intake Total 500 Balance 500 - Medications Medications: Current Medications Aspirin (Aspirin Chewable) 81 mg PO DAILY [facility] Last Admin: 04/06/18 10:32 Dose: Not Given Clopidogrel Bisulfate (Plavix) 75 mg PO DAILY [facility] Last Admin: 04/06/18 10:33 Dose: Not Given Enoxaparin Sodium (Lovenox) 40 mg SC DAILY [facility] Last Admin: 04/06/18 10:37 Dose: 40 mg Gabapentin (Neurontin) 300 mg PO BID [facility] Last Admin: 04/06/18 10:37 Dose: 300 mg Glimepiride (Amaryl) 1 mg PO DAILY [facility] Last Admin: 04/06/18 11:00 Dose: 1 mg Insulin Aspart (Novolog) 0 unit SC [facility]; Protocol Last Admin: 04/06/18 12:55 Dose: 8 unit Loratadine (Claritin) 10 mg PO DAILY [facility] Last Admin: 04/06/18 10:37 Dose: 10 mg Meclizine HCl (Antivert) 12.5 mg PO BID PRN PRN Reason: Dizziness Metoprolol Succinate (Toprol Xl) 100 mg PO DAILY [facility] Last Admin: 04/06/18 10:37 Dose: 100 mg Pantoprazole Sodium (Protonix Ec Tab) 40 mg PO DAILY [facility] Last Admin: 04/06/18 10:37 Dose: 40 mg Ranolazine (Ranexa) 1,000 mg PO BID [facility] Last Admin: 04/06/18 10:40 Dose: 1,000 mg - Labs Labs: 04/05/18 06:59 04/05/18 06:59 PT 11.6 SECONDS (9.7-12.2) 04/03/18 12:50 INR 1.1 04/03/18 12:50 APTT 27 SECONDS (21-34) 04/03/18 12:50 - Constitutional Appears: Non-toxic - Head Exam Head Exam: NORMAL INSPECTION - Eye Exam Eye Exam: Normal appearance - ENT Exam ENT Exam: Mucous Membranes Moist - Neck Exam Neck Exam: Normal Inspection - Respiratory Exam Respiratory Exam: Clear to Ausculation Bilateral - Cardiovascular Exam Cardiovascular Exam: REGULAR RHYTHM - GI/Abdominal Exam GI & Abdominal Exam: Normal Bowel Sounds - Rectal Exam Rectal Exam: Deferred - Extremities Exam Extremities Exam: absent: Pedal Edema - Back Exam Back Exam: NORMAL INSPECTION - Neurological Exam Neurological Exam: Alert - Psychiatric Exam Psychiatric exam: Normal Affect - Skin Skin Exam: Normal Color Assessment and Plan (1) Syncope Assessment & Plan: will need to be off ASA Plavix for ILR. patient has some symptoms therefore will remain in hospital. plan for ILR Wednesday Status: Acute (2) CAD (coronary artery disease) Assessment & Plan: holding ASA/Plavix for now Status: Acute (3) Diabetes Assessment & Plan: glucose control Status: Acute (4) HTN (hypertension) Assessment & Plan: blood pressure is stable Status: Acute
--- NOTE | 2018-04-06 20:45 | CP.PCM.PN ---
Subjective - Date & Time of Evaluation Date of Evaluation: 04/06/18 Time of Evaluation: 10:45 - Subjective Subjective: clinically same Objective - Vital Signs/Intake and Output Vital Signs (last 24 hours): Temp Pulse Resp BP Pulse Ox 97.4 F L 68 20 110/56 L 95 04/06/18 15:59 04/06/18 15:59 04/06/18 15:59 04/06/18 15:59 04/06/18 15:59 Intake and Output: 04/06/18 04/07/18 18:59 06:59 Intake Total 500 Balance 500 - Medications Medications: Current Medications Aspirin (Aspirin Chewable) 81 mg PO DAILY [facility] Last Admin: 04/06/18 10:32 Dose: Not Given Clopidogrel Bisulfate (Plavix) 75 mg PO DAILY [facility] Last Admin: 04/06/18 10:33 Dose: Not Given Enoxaparin Sodium (Lovenox) 40 mg SC DAILY [facility] Last Admin: 04/06/18 10:37 Dose: 40 mg Gabapentin (Neurontin) 300 mg PO BID [facility] Last Admin: 04/06/18 18:52 Dose: 300 mg Glimepiride (Amaryl) 1 mg PO DAILY [facility] Last Admin: 04/06/18 11:00 Dose: 1 mg Insulin Aspart (Novolog) 0 unit SC [facility]; Protocol Last Admin: 04/06/18 18:52 Dose: 4 unit Loratadine (Claritin) 10 mg PO DAILY [facility] Last Admin: 04/06/18 10:37 Dose: 10 mg Meclizine HCl (Antivert) 12.5 mg PO BID PRN PRN Reason: Dizziness Metoprolol Succinate (Toprol Xl) 100 mg PO DAILY [facility] Last Admin: 04/06/18 10:37 Dose: 100 mg Pantoprazole Sodium (Protonix Ec Tab) 40 mg PO DAILY [facility] Last Admin: 04/06/18 10:37 Dose: 40 mg Ranolazine (Ranexa) 1,000 mg PO BID [facility] Last Admin: 04/06/18 18:52 Dose: 1,000 mg - Labs Labs: 04/05/18 06:59 04/05/18 06:59 PT 11.6 SECONDS (9.7-12.2) 04/03/18 12:50 INR 1.1 04/03/18 12:50 APTT 27 SECONDS (21-34) 04/03/18 12:50
--- NOTE | 2018-04-07 07:37 | CP.PCM.PN ---
Subjective - Date & Time of Evaluation Date of Evaluation: 04/07/18 Time of Evaluation: 07:00 - Subjective Subjective: PGY2- Progress Note for Dr. Rubi Mcelroy Patient seen and examined at bedside. Patient says she is not feeling dizzy today but has a mild headache over her left eye. Patient denies any chest pain, shortness of breath, abdominal pain, nausea, vomiting, constipation, or diarrhea. Objective - Vital Signs/Intake and Output Vital Signs (last 24 hours): Temp Pulse Resp BP Pulse Ox 97.9 F 62 20 124/59 L 95 04/06/18 23:05 04/07/18 01:00 04/06/18 23:05 04/06/18 23:05 04/06/18 23:05 - Medications Medications: Current Medications Aspirin (Aspirin Chewable) 81 mg PO DAILY [facility] Last Admin: 04/06/18 10:32 Dose: Not Given Clopidogrel Bisulfate (Plavix) 75 mg PO DAILY [facility] Last Admin: 04/06/18 10:33 Dose: Not Given Enoxaparin Sodium (Lovenox) 40 mg SC DAILY [facility] Last Admin: 04/06/18 10:37 Dose: 40 mg Gabapentin (Neurontin) 300 mg PO BID [facility] Last Admin: 04/06/18 18:52 Dose: 300 mg Glimepiride (Amaryl) 1 mg PO DAILY [facility] Last Admin: 04/06/18 11:00 Dose: 1 mg Insulin Aspart (Novolog) 0 unit SC [facility]; Protocol Last Admin: 04/06/18 21:54 Dose: Not Given Loratadine (Claritin) 10 mg PO DAILY [facility] Last Admin: 04/06/18 10:37 Dose: 10 mg Meclizine HCl (Antivert) 12.5 mg PO BID PRN PRN Reason: Dizziness Metoprolol Succinate (Toprol Xl) 100 mg PO DAILY [facility] Last Admin: 04/06/18 10:37 Dose: 100 mg Pantoprazole Sodium (Protonix Ec Tab) 40 mg PO DAILY [facility] Last Admin: 04/06/18 10:37 Dose: 40 mg Ranolazine (Ranexa) 1,000 mg PO BID [facility] Last Admin: 04/06/18 18:52 Dose: 1,000 mg - Labs Labs: 04/05/18 06:59 04/05/18 06:59 PT 11.6 SECONDS (9.7-12.2) 04/03/18 12:50 INR 1.1 04/03/18 12:50 APTT 27 SECONDS (21-34) 04/03/18 12:50 - Constitutional Appears: Non-toxic, No Acute Distress - Head Exam Head Exam: ATRAUMATIC, NORMAL INSPECTION, NORMOCEPHALIC - Eye Exam Eye Exam: EOMI, Normal appearance - ENT Exam ENT Exam: Mucous Membranes Moist - Respiratory Exam Respiratory Exam: Clear to Ausculation Bilateral, NORMAL BREATHING PATTERN - Cardiovascular Exam Cardiovascular Exam: REGULAR RHYTHM, RRR, +S1, +S2 - GI/Abdominal Exam GI & Abdominal Exam: Soft, Normal Bowel Sounds. absent: Tenderness - Extremities Exam Extremities Exam: Full ROM, Normal Inspection - Neurological Exam Neurological Exam: Alert, Awake, Oriented x3 - Psychiatric Exam Psychiatric exam: Normal Affect, Normal Mood - Skin Skin Exam: Intact, Normal Color, Warm Assessment and Plan - Assessment and Plan (Free Text) Assessment: 52 year old female with a history of dm, hypertension, CAD s/p cabg, dyslipidemia who was admitted for syncopal episode. Syncope Patient for implantable loop recorder tomorrow 04/08/[address] Clay consulted: :recommend implantable loop recorder. :can only be scheduled for Wednesday. Neurology Dr. Stauffer consulted :MRI Brain ordered :Seizure precautions :anticoagulation (held due to ILR placement) :Diabetic control -MRI taken:no acute intracranial abnormality, mild chronic microangiopathic changes and mild parenchymal volume loss -Carotids doppler:does not suggest hemodynamically stenosis -EEG:abnormal EEG of awake and drowsy cycle Hypertension -Metoprolol Succinate 100mg PO Daily DM II -Amaryl 1mg po daily -ISS -Accuchecks ACHS -heart healthy/ low consistent carb diet CAD -S/P CABG -Aspirin 81mg PO Daily held for ILR -Plavix 75 mg PO Daily held for ILR -Ranexa 1000mg po BID Diabetic Nephropathy -Neurontin 300mg PO BID Vertigo -Meclizine 12.5mg po BID PRN Allergies -Claritin 10mg po daily PPX -Lovenox 40mg sc Daily -Protonix 40mg PO Daily Dispo: Patient expected to have Loop Recorder placed on Wednesday with Dr. Arechiga. NPO after midnight. All management per Dr. Spencer Mcelroy.
[2018-04-07] MEDS: (Novolog) Insulin Aspart, Recombinant 100 u/ml 10 ml vial SC SCH ×4 (08:23→22:27)
[2018-04-07 08:36] LABS: BASO % 0.7 % (0.0-2.0); EOS # 0.1 K/uL (0.0-0.7); HEMOGLOBIN 14.1 g/dL (11.0-16.0); LYMPH # 1.3 K/uL (1.0-4.3); LYMPH % 24.5 % (20.0-40.0); MEAN CELL VOLUME 94.7 fL (81.0-99.0); MEAN CORPUSCULAR HEMOGLOBIN 32.2 pg (27.0-31.0); MEAN PLATELET VOLUME 9.9 fL (7.2-11.7); MONO # 0.5 K/uL (0.0-0.8); MONO % 10.2 % (0.0-10.0); NEUT # 3.4 K/uL (1.8-7.0); NEUT % 63.6 % (50.0-75.0); RBC 4.38 Mil/uL (3.80-5.20); RED CELL DISTRIBUTION WIDTH 13.3 % (11.5-14.5); WHITE BLOOD COUNT 5.4 K/uL (4.8-10.8)
[2018-04-07 09:02] LABS: ALB/GLOB RATIO 1.1 (1.0-2.1); ALBUMIN 3.9 g/dL (3.5-5.0); ALT/SGPT 31 U/L (9-52); AST/SGOT 26 U/L (14-36); BLOOD UREA NITROGEN 17 mg/dL (7-17); CALCIUM 9.3 mg/dl (8.6-10.4); GFR NON-AFRICAN AMERICAN > 60
[2018-04-07] MEDS: Ranolazine 500 mg Extended Release Tablets PO SCH ×2 (09:32→17:44)
[2018-04-07] MEDS: Pantoprazole 40 mg EC Tab PO SCH (09:33)
[2018-04-07] MEDS: Metoprolol Succinate 100 mg XL Tab PO SCH (09:34)
[2018-04-07] MEDS: Enoxaparin 40 mg Syringe SC SCH (10:19)
--- NOTE | 2018-04-07 17:41 | CP.PCM.PN ---
Subjective - Date & Time of Evaluation Date of Evaluation: 04/07/18 Time of Evaluation: 09:30 - Subjective Subjective: clinically same Objective - Vital Signs/Intake and Output Vital Signs (last 24 hours): Temp Pulse Resp BP Pulse Ox 97.3 F L 59 L 20 114/58 L 95 04/07/18 15:00 04/07/18 15:57 04/07/18 15:00 04/07/18 15:00 04/07/18 15:00 - Medications Medications: Current Medications Acetaminophen (Tylenol 325mg Tab) 650 mg PO Q6 PRN PRN Reason: Headache Last Admin: 04/07/18 15:03 Dose: 650 mg Aspirin (Aspirin Chewable) 81 mg PO DAILY [facility] Last Admin: 04/06/18 10:32 Dose: Not Given Clopidogrel Bisulfate (Plavix) 75 mg PO DAILY [facility] Last Admin: 04/06/18 10:33 Dose: Not Given Docusate Sodium (Colace) 100 mg PO TID [facility] Enoxaparin Sodium (Lovenox) 40 mg SC DAILY [facility] Last Admin: 04/07/18 10:19 Dose: 40 mg Gabapentin (Neurontin) 300 mg PO BID [facility] Last Admin: 04/07/18 09:33 Dose: 300 mg Glimepiride (Amaryl) 1 mg PO DAILY [facility] Last Admin: 04/07/18 09:33 Dose: 1 mg Insulin Aspart (Novolog) 0 unit SC [facility]; Protocol Last Admin: 04/07/18 12:30 Dose: 8 unit Loratadine (Claritin) 10 mg PO DAILY [facility] Last Admin: 04/07/18 09:33 Dose: 10 mg Meclizine HCl (Antivert) 12.5 mg PO BID PRN PRN Reason: Dizziness Metoprolol Succinate (Toprol Xl) 100 mg PO DAILY [facility] Last Admin: 04/07/18 09:34 Dose: Not Given Pantoprazole Sodium (Protonix Ec Tab) 40 mg PO DAILY [facility] Last Admin: 04/07/18 09:33 Dose: 40 mg Ranolazine (Ranexa) 1,000 mg PO BID [facility] Last Admin: 04/07/18 09:32 Dose: 1,000 mg - Labs Labs: 04/07/18 08:23 04/07/18 08:23 PT 11.6 SECONDS (9.7-12.2) 04/03/18 12:50 INR 1.1 04/03/18 12:50 APTT 27 SECONDS (21-34) 04/03/18 12:50
[2018-04-08 07:21] LABS: BASO % 0.6 % (0.0-2.0); EOS % 0.8 % (0.0-4.0); HEMOGLOBIN 14.5 g/dL (11.0-16.0); LYMPH # 1.3 K/uL (1.0-4.3); LYMPH % 23.2 % (20.0-40.0); MEAN CELL VOLUME 95.3 fL (81.0-99.0); MEAN CORPUSCULAR HEMOGLOBIN 33.1 pg (27.0-31.0); MEAN CORPUSCULAR HGB CONC 34.7 g/dL (33.0-37.0); MEAN PLATELET VOLUME 9.9 fL (7.2-11.7); MONO # 0.6 K/uL (0.0-0.8); MONO % 10.9 % (0.0-10.0); NEUT # 3.5 K/uL (1.8-7.0); NEUT % 64.5 % (50.0-75.0); RBC 4.38 Mil/uL (3.80-5.20); RED CELL DISTRIBUTION WIDTH 13.2 % (11.5-14.5); WHITE BLOOD COUNT 5.5 K/uL (4.8-10.8)
[2018-04-08] MEDS ORDERED: ceFAZolin 1 gm FROZEN Premix 0 GM/0 ML ML IVPB ONE (07:27)
[2018-04-08] MEDS ORDERED: Lidocaine 1% 20 MG/2 ML PF AMP ONE ×2 (07:28→07:33)
[2018-04-08] MEDS ORDERED: Lidocaine PF 2% (5 ml) Inj (For Cardiac Arrhy) ONE (07:32)
[2018-04-08 07:35] VITALS: RESP 20
[2018-04-08] MEDS ORDERED: Lidocaine Hydrochloride 0 ML INJ ONE (07:35)
[2018-04-08] MEDS: (Novolog) Insulin Aspart, Recombinant 100 u/ml 10 ml vial SC SCH ×4 (07:37→21:42)
[2018-04-08 07:48] LABS: ALB/GLOB RATIO 1.2 (1.0-2.1); ALBUMIN 4.3 g/dL (3.5-5.0); ALT/SGPT 31 U/L (9-52); AST/SGOT 29 U/L (14-36); BLOOD UREA NITROGEN 21 mg/dL (7-17); CALCIUM 9.3 mg/dl (8.6-10.4); GFR NON-AFRICAN AMERICAN > 60
[2018-04-08] MEDS ORDERED: ceFAZolin IV 2 gm in Dextrose 2 GM/50 ML BAG IVPB SCH (08:35)
[2018-04-08] MEDS ORDERED: ceFAZolin 1 gm FROZEN Premix 1 GM/50 ML ML IVPB ONE ×2 (08:40→09:28)
--- NOTE | 2018-04-08 09:12 | CP.PCM.CON ---
History of Present Illness - History of Present Illness History of Present Illness: PROCEDURE NOTE Proc: Loop recorder implant Indication: Recurrent syncope of unknown etiology Pt was prepped and draped in the usual sterile fasion. Ancef 2 gm was given during the procedure. Local anesthesia was given in the 4th ICS left parasternal area 2cmfrom the sternum. A small incision was made and the loop recorder was implanted. Pt tolerated the procedure well. No complications. Dr Hai Mcelroy and Dr Siri Clay will be following the patient. Past Patient History - Infectious Disease Hx of Infectious Diseases: None - Past Medical History & Family History Past Medical History?: Yes - Past Social History Smoking Status: Never Smoked - CARDIAC Hx Cardia Arrhythmia: Yes Hx Hypercholesterolemia: Yes Hx Hypertension: Yes Hx Peripheral Edema: Yes - PULMONARY Hx Respiratory Disorders: Yes Hx Asthma: Yes Hx Sleep Apnea: Yes - NEUROLOGICAL Hx Neurological Disorder: Yes Hx Transient Ischemic Attacks (TIA): Yes - HEENT Hx HEENT Problems: No - RENAL Hx Chronic Kidney Disease: Yes - ENDOCRINE/METABOLIC Hx Endocrine Disorders: Yes Hx Diabetes Mellitus Type 1: Yes - HEMATOLOGICAL/ONCOLOGICAL Hx Blood Disorders: Yes - INTEGUMENTARY Hx Dermatological Problems: Yes Hx Psoriasis: Yes (mild) - MUSCULOSKELETAL/RHEUMATOLOGICAL Hx Falls: No - GASTROINTESTINAL Hx Gastrointestinal Disorders: Yes Hx Gall Bladder Disease: Yes Hx Gastritis: Yes - GENITOURINARY/GYNECOLOGICAL Hx Genitourinary Disorders: No - PSYCHIATRIC Hx Psychophysiologic Disorder: Yes Hx Anxiety: Yes Hx Depression: Yes Hx Substance Use: No - SURGICAL HISTORY Hx Surgeries: Yes Hx Cholecystectomy: Yes Hx Coronary Artery Bypass Graft: Yes (september 2008 x4) Hx Coronary Stent: Yes (9 stents) - ANESTHESIA Hx Anesthesia: Yes Hx Anesthesia Reactions: No Hx Malignant Hyperthermia: No Has any member of the family had a problem w/ anesthesia?: No Meds Allergies/Adverse Reactions: Allergies Allergy/AdvReac Type Severity Reaction Status Date / Time iodine Allergy Severe URTICARIA Verified 04/03/18 13:18 latex Allergy Severe URTICARIA Verified 04/03/18 13:18 seafood Allergy Severe URTICARIA Uncoded 04/03/18 13:18 - Medications Medications: Current Medications Acetaminophen (Tylenol 325mg Tab) 650 mg PO Q6 PRN PRN Reason: Headache Last Admin: 04/07/18 15:03 Dose: 650 mg Aspirin (Aspirin Chewable) 81 mg PO DAILY [facility] Last Admin: 04/06/18 10:32 Dose: Not Given Clopidogrel Bisulfate (Plavix) 75 mg PO DAILY [facility] Last Admin: 04/06/18 10:33 Dose: Not Given Docusate Sodium (Colace) 100 mg PO TID [facility] Last Admin: 04/07/18 17:44 Dose: 100 mg Enoxaparin Sodium (Lovenox) 40 mg SC DAILY [facility] Last Admin: 04/07/18 10:19 Dose: 40 mg Gabapentin (Neurontin) 300 mg PO BID [facility] Last Admin: 04/07/18 17:44 Dose: 300 mg Glimepiride (Amaryl) 1 mg PO DAILY [facility] Last Admin: 04/07/18 09:33 Dose: 1 mg Insulin Aspart (Novolog) [address] [facility]; Protocol Last Admin: 04/08/18 07:37 Dose: Not Given Loratadine (Claritin) 10 mg PO DAILY [facility] Last Admin: 04/07/18 09:33 Dose: 10 mg Meclizine HCl (Antivert) 12.5 mg PO BID PRN PRN Reason: Dizziness Metoprolol Succinate (Toprol Xl) 100 mg PO DAILY [facility] Last Admin: 04/07/18 09:34 Dose: Not Given Pantoprazole Sodium (Protonix Ec Tab) 40 mg PO DAILY [facility] Last Admin: 04/07/18 09:33 Dose: 40 mg Ranolazine (Ranexa) 1,000 mg PO BID [facility] Last Admin: 04/07/18 17:44 Dose: 1,000 mg Results - Vital Signs Recent Vital Signs: Last Vital Signs Temp 97.9 F 04/08/18 07:00 Pulse 67 04/08/18 07:00 Resp 20 04/08/18 07:00 BP 115/76 04/08/18 07:00 Pulse Ox 99 04/08/18 07:00 - Labs Result Diagrams: 04/08/18 07:12 04/08/18 07:12 Labs: Laboratory Results - last 24 hr 04/07/18 04/07/18 04/07/18 11:19 14:19 16:24 WBC RBC Hgb Hct MCV MCH MCHC RDW Plt Count MPV Neut % (Auto) Lymph % (Auto) [place] % (Auto) Eos % (Auto) Baso % (Auto) Neut # (Auto) Lymph # (Auto) [place] # (Auto) Eos # (Auto) Baso # (Auto) Sodium Potassium Chloride Carbon Dioxide Anion Gap BUN Creatinine Est GFR ( Amer) Est GFR (Non-Af Amer) POC Glucose (mg/dL) 359 H 297 H 200 H Random Glucose Calcium Total Bilirubin AST ALT Alkaline Phosphatase Total Protein Albumin Globulin Albumin/Globulin Ratio Urine HCG, Qual 04/07/18 04/08/18 04/08/18 21:14 00:22 06:44 WBC RBC Hgb Hct MCV MCH MCHC RDW Plt Count MPV Neut % (Auto) Lymph % (Auto) [place] % (Auto) Eos % (Auto) Baso % (Auto) Neut # (Auto) Lymph # (Auto) [place] # (Auto) Eos # (Auto) Baso # (Auto) Sodium Potassium Chloride Carbon Dioxide Anion Gap BUN Creatinine Est GFR ( Amer) Est GFR (Non-Af Amer) POC Glucose (mg/dL) 192 H 317 H Random Glucose Calcium Total Bilirubin AST ALT Alkaline Phosphatase Total Protein Albumin Globulin Albumin/Globulin Ratio Urine HCG, Qual Negative 04/08/18 04/08/18 07:12 07:12 WBC 5.5 RBC 4.38 Hgb 14.5 Hct 41.7 MCV 95.3 MCH 33.1 H MCHC 34.7 RDW 13.2 Plt Count 203 MPV 9.9 Neut % (Auto) 64.5 Lymph % (Auto) 23.2 [place] % (Auto) 10.9 H Eos % (Auto) 0.8 Baso % (Auto) 0.6 Neut # (Auto) 3.5 Lymph # (Auto) 1.3 [place] # (Auto) 0.6 Eos # (Auto) 0.0 Baso # (Auto) 0.0 Sodium 136 Potassium 4.9 Chloride 100 Carbon Dioxide 25 Anion Gap 16 BUN 21 H Creatinine 0.8 Est GFR ( Amer) > 60 Est GFR (Non-Af Amer) > 60 POC Glucose (mg/dL) Random Glucose 291 H Calcium 9.3 Total Bilirubin 0.7 AST 29 ALT 31 Alkaline Phosphatase 96 Total Protein 8.0 Albumin 4.3 Globulin 3.7 Albumin/Globulin Ratio 1.2 Urine HCG, Qual
--- NOTE | 2018-04-08 09:56 | CP.PCM.PN ---
Subjective - Date & Time of Evaluation Date of Evaluation: 04/08/18 Time of Evaluation: 09:56 - Subjective Subjective: PGY-2 Progress Note Patient seen and examined at bedside. Per nursing no acute events occurred overnight .Patient denies any chest pain, shortness of breath ,fevers, chills, nausea, vomiting, or any other complaints. Objective - Vital Signs/Intake and Output Vital Signs (last 24 hours): Temp Pulse Resp BP Pulse Ox 97.9 F 67 20 115/76 99 04/08/18 07:00 04/08/18 07:00 04/08/18 07:00 04/08/18 07:00 04/08/18 07:00 Intake and Output: 04/08/18 04/08/18 06:59 18:59 Intake Total 0 Balance 0 - Medications Medications: Current Medications Acetaminophen (Tylenol 325mg Tab) 650 mg PO Q6 PRN PRN Reason: Headache Last Admin: 04/07/18 15:03 Dose: 650 mg Aspirin (Aspirin Chewable) 81 mg PO DAILY [facility] Last Admin: 04/06/18 10:32 Dose: Not Given Clopidogrel Bisulfate (Plavix) 75 mg PO DAILY [facility] Last Admin: 04/06/18 10:33 Dose: Not Given Docusate Sodium (Colace) 100 mg PO TID [facility] Last Admin: 04/07/18 17:44 Dose: 100 mg Enoxaparin Sodium (Lovenox) 40 mg SC DAILY [facility] Last Admin: 04/07/18 10:19 Dose: 40 mg Gabapentin (Neurontin) 300 mg PO BID [facility] Last Admin: 04/07/18 17:44 Dose: 300 mg Glimepiride (Amaryl) 1 mg PO DAILY [facility] Last Admin: 04/07/18 09:33 Dose: 1 mg Cefazolin Sodium/Dextrose (Ancef Iv 2 Gm Duplex) 2 gm in 50 mls @ 100 mls/hr I VPB ONCE [facility]; Protocol Stop: 04/09/18 09:04 Insulin Aspart (Novolog) 0 unit SC ACHS [facility]; Protocol Last Admin: 04/08/18 07:37 Dose: Not Given Loratadine (Claritin) 10 mg PO DAILY [facility] Last Admin: 04/07/18 09:33 Dose: 10 mg Meclizine HCl (Antivert) 12.5 mg PO BID PRN PRN Reason: Dizziness Metoprolol Succinate (Toprol Xl) 100 mg PO DAILY [facility] Last Admin: 04/07/18 09:34 Dose: Not Given Pantoprazole Sodium (Protonix Ec Tab) 40 mg PO DAILY [facility] Last Admin: 04/07/18 09:33 Dose: 40 mg Ranolazine (Ranexa) 1,000 mg PO BID [facility] Last Admin: 04/07/18 17:44 Dose: 1,000 mg - Labs Labs: 04/08/18 07:12 04/08/18 07:12 PT 11.6 SECONDS (9.7-12.2) 04/03/18 12:50 INR 1.1 04/03/18 12:50 APTT 27 SECONDS (21-34) 04/03/18 12:50 - Head Exam Head Exam: ATRAUMATIC, NORMAL INSPECTION - Eye Exam Eye Exam: EOMI, Normal appearance, PERRL Pupil Exam: NORMAL ACCOMODATION, PERRL - ENT Exam ENT Exam: Mucous Membranes Moist - Neck Exam Neck Exam: Normal Inspection - Respiratory Exam Respiratory Exam: Clear to Ausculation Bilateral, NORMAL BREATHING PATTERN. absent: Respiratory Distress - Cardiovascular Exam Cardiovascular Exam: REGULAR RHYTHM, +S1, +S2 - GI/Abdominal Exam GI & Abdominal Exam: Soft, Normal Bowel Sounds - Extremities Exam Extremities Exam: Full ROM, Normal Inspection. absent: Pedal Edema - Back Exam Back Exam: NORMAL INSPECTION. absent: paraspinal tenderness - Neurological Exam Neurological Exam: Alert, Awake, CN II-XII Intact - Psychiatric Exam Psychiatric exam: Normal Affect, Normal Mood - Skin Skin Exam: Dry, Intact Assessment and Plan - Assessment and Plan (Free Text) Plan: 52 year old female with a history of dm, hypertension, CAD s/p cabg, dyslipidemia who was admitted for syncopal episode. Syncope Patient for implantable loop recorder tomorrow 04/08/[address] Clay consulted: :recommend implantable loop recorder. :can only be scheduled for Wednesday. Neurology Dr. Stauffer consulted :MRI Brain ordered :Seizure precautions :anticoagulation (held due to ILR placement) :Diabetic control -MRI taken:no acute intracranial abnormality, mild chronic microangiopathic changes and mild parenchymal volume loss -Carotids doppler:does not suggest hemodynamically stenosis -EEG:abnormal EEG of awake and drowsy cycle -Status post Loop Recorder placement. 2gm IVPB Cefazolin given prior to procedure. Patient tolerated procedure well. Hypertension -Metoprolol Succinate 100mg PO Daily DM II -Amaryl 1mg po daily -ISS -Accuchecks ACHS -heart healthy/ low consistent carb diet CAD -S/P CABG -Aspirin 81mg PO Daily held for ILR -Plavix 75 mg PO Daily held for ILR -Ranexa 1000mg po BID Diabetic Nephropathy -Neurontin 300mg PO BID Vertigo -Meclizine 12.5mg po BID PRN Allergies -Claritin 10mg po daily PPX -Lovenox 40mg sc Daily -Protonix 40mg PO Daily Dispo: Status post Loop recorder placement. Will f/u with rec's from Cardiology. All management per Dr. Spencer Mcelroy.
[2018-04-08] MEDS: Metoprolol Succinate 100 mg XL Tab PO SCH (10:51)
[2018-04-08] MEDS: Enoxaparin 40 mg Syringe SC SCH (10:51)
[2018-04-08] MEDS: Pantoprazole 40 mg EC Tab PO SCH (10:51)
[2018-04-08] MEDS: Ranolazine 500 mg Extended Release Tablets PO SCH ×2 (10:53→18:55)
--- NOTE | 2018-04-08 18:24 | CP.PCM.PN ---
Subjective - Date & Time of Evaluation Date of Evaluation: 04/08/18 Time of Evaluation: 08:15 - Subjective Subjective: clinically same Objective - Vital Signs/Intake and Output Vital Signs (last 24 hours): Temp Pulse Resp BP Pulse Ox 97.5 F L 59 L 20 129/75 96 04/08/18 15:00 04/08/18 15:00 04/08/18 15:00 04/08/18 15:00 04/08/18 15:00 Intake and Output: 04/08/18 04/08/18 06:59 18:59 Intake Total 0 Balance 0 - Medications Medications: Current Medications Acetaminophen (Tylenol 325mg Tab) 650 mg PO Q6 PRN PRN Reason: Headache Last Admin: 04/08/18 14:13 Dose: 650 mg Aspirin (Aspirin Chewable) 81 mg PO DAILY [facility] Last Admin: 04/06/18 10:32 Dose: Not Given Clopidogrel Bisulfate (Plavix) 75 mg PO DAILY [facility] Last Admin: 04/06/18 10:33 Dose: Not Given Docusate Sodium (Colace) 100 mg PO TID [facility] Last Admin: 04/08/18 17:44 Dose: 100 mg Enoxaparin Sodium (Lovenox) 40 mg SC DAILY [facility] Last Admin: 04/08/18 10:51 Dose: 40 mg Gabapentin (Neurontin) 300 mg PO BID [facility] Last Admin: 04/08/18 17:44 Dose: 300 mg Glimepiride (Amaryl) 1 mg PO DAILY [facility] Last Admin: 04/08/18 10:51 Dose: 1 mg Cefazolin Sodium/Dextrose (Ancef Iv 2 Gm Duplex) 2 gm in 50 mls @ 100 mls/hr IV PB ONCE [facility]; Protocol Stop: 04/09/18 09:04 Last Admin: 04/08/18 09:54 Dose: Not Given Insulin Aspart (Novolog) 0 unit SC ACHS [facility]; Protocol Last Admin: 04/08/18 17:25 Dose: 3 unit Loratadine (Claritin) 10 mg PO DAILY [facility] Last Admin: 04/08/18 10:51 Dose: 10 mg Meclizine HCl (Antivert) 12.5 mg PO BID PRN PRN Reason: Dizziness Metoprolol Succinate (Toprol Xl) 100 mg PO DAILY [facility] Last Admin: 04/08/18 10:51 Dose: 100 mg Pantoprazole Sodium (Protonix Ec Tab) 40 mg PO DAILY [facility] Last Admin: 04/08/18 10:51 Dose: 40 mg Ranolazine (Ranexa) 1,000 mg PO BID [facility] Last Admin: 04/08/18 10:53 Dose: 1,000 mg - Labs Labs: 04/08/18 07:12 04/08/18 07:12 PT 11.6 SECONDS (9.7-12.2) 04/03/18 12:50 INR 1.1 04/03/18 12:50 APTT 27 SECONDS (21-34) 04/03/18 12:50
[2018-04-09 07:34] VITALS: BP 127/75; PULSE 60; TEMP 98; O2SAT 95
[2018-04-09 07:58] LABS: BASO % 0.5 % (0.0-2.0); EOS # 0.1 K/uL (0.0-0.7); EOS % 1.5 % (0.0-4.0); LYMPH # 1.2 K/uL (1.0-4.3); LYMPH % 27.3 % (20.0-40.0); MEAN CELL VOLUME 94.5 fL (81.0-99.0); MEAN CORPUSCULAR HEMOGLOBIN 32.4 pg (27.0-31.0); MEAN CORPUSCULAR HGB CONC 34.3 g/dL (33.0-37.0); MONO # 0.6 K/uL (0.0-0.8); MONO % 12.1 % (0.0-10.0); NEUT # 2.7 K/uL (1.8-7.0); NEUT % 58.6 % (50.0-75.0); RBC 4.33 Mil/uL (3.80-5.20); RED CELL DISTRIBUTION WIDTH 13.3 % (11.5-14.5); WHITE BLOOD COUNT 4.6 K/uL (4.8-10.8)
[2018-04-09 08:35] LABS: ALB/GLOB RATIO 1.1 (1.0-2.1); ALBUMIN 3.9 g/dL (3.5-5.0); ALT/SGPT 31 U/L (9-52); AST/SGOT 26 U/L (14-36); BLOOD UREA NITROGEN 18 mg/dL (7-17); CALCIUM 9.2 mg/dl (8.6-10.4); GFR NON-AFRICAN AMERICAN > 60
--- NOTE | 2018-04-09 08:48 | CP.PCM.PN ---
Subjective - Date & Time of Evaluation Date of Evaluation: 04/09/18 Time of Evaluation: 08:10 - Subjective Subjective: patient is s/p loop recorder placement. feels well Objective - Vital Signs/Intake and Output Vital Signs (last 24 hours): Temp Pulse Resp BP Pulse Ox 98.0 F 60 20 127/75 95 04/09/18 07:00 04/09/18 07:00 04/09/18 07:00 04/09/18 07:00 04/09/18 07:00 - Medications Medications: Current Medications Acetaminophen (Tylenol 325mg Tab) 650 mg PO Q6 PRN PRN Reason: Headache Last Admin: 04/08/18 14:13 Dose: 650 mg Aspirin (Aspirin Chewable) 81 mg PO DAILY [facility] Last Admin: 04/06/18 10:32 Dose: Not Given Clopidogrel Bisulfate (Plavix) 75 mg PO DAILY [facility] Last Admin: 04/06/18 10:33 Dose: Not Given Docusate Sodium (Colace) 100 mg PO TID [facility] Last Admin: 04/08/18 17:44 Dose: 100 mg Enoxaparin Sodium (Lovenox) 40 mg SC DAILY [facility] Last Admin: 04/08/18 10:51 Dose: 40 mg Gabapentin (Neurontin) 300 mg PO BID [facility] Last Admin: 04/08/18 17:44 Dose: 300 mg Glimepiride (Amaryl) 1 mg PO DAILY [facility] Last Admin: 04/08/18 10:51 Dose: 1 mg Insulin Aspart (Novolog) 0 unit SC [facility]; Protocol Last Admin: 04/08/18 21:42 Dose: Not Given Loratadine (Claritin) 10 mg PO DAILY [facility] Last Admin: 04/08/18 10:51 Dose: 10 mg Meclizine HCl (Antivert) 12.5 mg PO BID PRN PRN Reason: Dizziness Metoprolol Succinate (Toprol Xl) 100 mg PO DAILY [facility] Last Admin: 04/08/18 10:51 Dose: 100 mg Pantoprazole Sodium (Protonix Ec Tab) 40 mg PO DAILY [facility] Last Admin: 04/08/18 10:51 Dose: 40 mg Ranolazine (Ranexa) 1,000 mg PO BID [facility] Last Admin: 04/08/18 18:55 Dose: 1,000 mg - Labs Labs: 04/09/18 07:42 04/09/18 07:42 PT 11.6 SECONDS (9.7-12.2) 04/03/18 12:50 INR 1.1 04/03/18 12:50 APTT 27 SECONDS (21-34) 04/03/18 12:50 - Constitutional Appears: Non-toxic - Head Exam Head Exam: NORMAL INSPECTION - Eye Exam Eye Exam: Normal appearance - ENT Exam ENT Exam: Mucous Membranes Moist - Neck Exam Neck Exam: Full ROM - Respiratory Exam Respiratory Exam: NORMAL BREATHING PATTERN - Cardiovascular Exam Cardiovascular Exam: REGULAR RHYTHM - GI/Abdominal Exam GI & Abdominal Exam: Normal Bowel Sounds - Rectal Exam Rectal Exam: Deferred - Extremities Exam Extremities Exam: absent: Pedal Edema - Back Exam Back Exam: NORMAL INSPECTION - Neurological Exam Neurological Exam: Alert - Psychiatric Exam Psychiatric exam: Normal Affect - Skin Skin Exam: Normal Color Assessment and Plan (1) Syncope Assessment & Plan: s/p loop recorder. she will receive a smartphone to transmit episodes to the office this morning, then can be d/david home. Status: Acute (2) CAD (coronary artery disease) Assessment & Plan: restart ASA 81 mg daily, Plavix 75 mg daily Status: Acute (3) Diabetes Assessment & Plan: glucose control Status: Acute (4) HTN (hypertension) Assessment & Plan: blood pressure control Status: Acute
[2018-04-09] MEDS: (Novolog) Insulin Aspart, Recombinant 100 u/ml 10 ml vial SC SCH ×2 (09:07→12:59)
[2018-04-09] MEDS: Enoxaparin 40 mg Syringe SC SCH (09:39)
[2018-04-09] MEDS: Metoprolol Succinate 100 mg XL Tab PO SCH (09:40)
[2018-04-09] MEDS: Ranolazine 500 mg Extended Release Tablets PO SCH (09:40)
[2018-04-09] MEDS: Pantoprazole 40 mg EC Tab PO SCH (09:40)
[2018-04-09] MEDS ORDERED: Influenza Vaccine 60 MCG/0.5 ML SYR (3 yr & up) IM ONE (13:14)
--- NOTE | 2018-04-09 13:42 | CP.PCM.PN ---
Subjective - Date & Time of Evaluation Date of Evaluation: 04/09/18 Time of Evaluation: 13:41 - Subjective Subjective: PT SEEN AND CLEARED BY DR. RODRIGUEZ. OK TO D/C HOME TODAY PER DR. Rubi OROSCO. PT D/C'D WITH LOOP RECORDER AND WILL F/U WITH DR. RODRIGUEZ IN OFFICE NEXT WEEK OR INSTRUCTED BY HIM. CONTINUE ASA AND PLAVIX. NEW METOPROLOL AND ASA RX SENT TO PT'S PHARMACY. NO FURTHER ORDERS. -FOLLOW UP WITH DR. Spencer OROSCO IN THE OFFICE WITHIN 1 WEEK---CALL THE OFFICE FOR AN APPT TIME. -FOLLOW UP WITH DR. RODRIGUEZ (ASSISTANT PROFESS[employer]) IN THE OFFICE WITHIN 5-7 DAYS OR WHEN HE HAS INSTRUCTED YOU---CALL THE OFFICE FOR AN APPT TIME. -CONTINUE HOME MEDICATIONS USUAL. -CONTINUE BABY ASPIRIN AND PLAVIX ONCE A DAY. -STOP TAKING YOUR METOPROLOL 200 MG---THIS DOSE HAS BEEN CHANGED BY YOUR DOCTOR---YOU HAVE BEEN PRESCRIBED THE FOLLOWING DOSE: 1) METOPROLOL XL 100 MG---1 TABLET BY MOUTH ONCE A DAY. -USE THE SMART PHONE/LOOP RECORDER INSTRUCTED BY DR. RODRIGUEZ. -FOR FURTHER QUESTIONS, CONTACT DR. RODRIGUEZ OR DR. Spencer OROSCO. Objective - Vital Signs/Intake and Output Vital Signs (last 24 hours): Temp Pulse Resp BP Pulse Ox 98.0 F 60 20 127/75 95 04/09/18 07:00 04/09/18 07:00 04/09/18 07:00 04/09/18 07:00 04/09/18 07:00 - Medications Medications: Current Medications Acetaminophen (Tylenol 325mg Tab) 650 mg PO Q6 PRN PRN Reason: Headache Last Admin: 04/08/18 14:13 Dose: 650 mg Aspirin (Aspirin Chewable) 81 mg PO DAILY [facility] Last Admin: 04/09/18 09:40 Dose: 81 mg Clopidogrel Bisulfate (Plavix) 75 mg PO DAILY [facility] Last Admin: 04/09/18 09:39 Dose: 75 mg Docusate Sodium (Colace) 100 mg PO TID [facility] Last Admin: 04/09/18 12:59 Dose: 100 mg Enoxaparin Sodium (Lovenox) 40 mg SC DAILY [facility] Last Admin: 04/09/18 09:39 Dose: 40 mg Gabapentin (Neurontin) 300 mg PO BID [facility] Last Admin: 04/09/18 09:39 Dose: 300 mg Glimepiride (Amaryl) 1 mg PO DAILY [facility] Last Admin: 04/09/18 09:39 Dose: 1 mg Insulin Aspart (Novolog) 0 unit SC [facility]; Protocol Last Admin: 04/09/18 12:59 Dose: 10 unit Loratadine (Claritin) 10 mg PO DAILY [facility] Last Admin: 04/09/18 09:40 Dose: 10 mg Meclizine HCl (Antivert) 12.5 mg PO BID PRN PRN Reason: Dizziness Metoprolol Succinate (Toprol Xl) 100 mg PO DAILY [facility] Last Admin: 04/09/18 09:40 Dose: 100 mg Pantoprazole Sodium (Protonix Ec Tab) 40 mg PO DAILY [facility] Last Admin: 04/09/18 09:40 Dose: 40 mg Ranolazine (Ranexa) 1,000 mg PO BID [facility] Last Admin: 04/09/18 09:40 Dose: 1,000 mg - Labs Labs: 04/09/18 07:42 04/09/18 07:42 PT 11.6 SECONDS (9.7-12.2) 04/03/18 12:50 INR 1.1 04/03/18 12:50 APTT 27 SECONDS (21-34) 04/03/18 12:50
== END 2018-04-09 14:20 | disposition home or self-care (01) | DRG 141 ==
LOC: C.ER 12:14 → C.9E 14:24 → C.5S 20:44 → OBSVTOIN 04-07 11:16 → C.5S 04-07 20:44
PROVIDERS: ADMIT Internal Medicine Nephrology; ATTEND Internal Medicine Nephrology
PROC: 0JH632Z Insertion of Monitoring Device into Chest Subcutaneous Tissue and Fascia, Percutaneous Approach (ICD-10-PCS; principal; 2018-04-08)
DX: R55 Syncope and collapse (principal); I12.9 Hypertensive chronic kidney disease with stage 1 through stage 4 chronic kidney disease, or unspecified chronic kidney disease; N18.9 Chronic kidney disease, unspecified; I25.10 Atherosclerotic heart disease of native coronary artery without angina pectoris; E11.9 Type 2 diabetes mellitus without complications; J45.909 Unspecified asthma, uncomplicated; E78.00 Pure hypercholesterolemia, unspecified; I25.2 Old myocardial infarction; Z86.73 Personal history of transient ischemic attack (TIA), and cerebral infarction without residual deficits; Z95.1 Presence of aortocoronary bypass graft; Z95.5 Presence of coronary angioplasty implant and graft

== ENCOUNTER 2018-06-14 04:02 | Inpatient (IN) | payer MEDICAID ==
--- NOTE | 2018-06-14 04:08 | C.PDOC ---
History Of Present Illness 52 year old female with PMHx of CABG and Stents is brought to the ED by EMS for evaluation of chest pain. Patient reports pain started at 01:00, described as dull, aching, squeezing. Patient received 1 nitro SL and 324 mg aspirin by EMS. Patient speaking in full sentences. Patient denies fever, chills, nausea, vomit, diarrhea, SOB, headache, visual changes, dizziness, weakness, numbness. Time Seen by Provider: 06/14/18 04:08 Chief Complaint (Nursing): Chest Pain History Per: Patient, EMS History/Exam Limitations: no limitations Onset/Duration Of Symptoms: Hrs (01:00) Current Symptoms Are (Timing): Still Present Severity: Moderate Pain Scale Rating Of: 4 Quality: Dull, Aching, Squeezing Associated Symptoms: denies: Nausea Modifying Factors: None Exacerbating Factors: None Nitro Therapy Administered: 3, Per EMS Recent travel outside of the [place]: No Additional History Per: Patient Past Medical History Reviewed: Historical Data, Nursing Documentation, Vital Signs - Medical History PMH: Anxiety, Asthma, CAD, Cardia Arrhythmia, Depression, Diabetes, Gastritis, Gastrointestinal Ulcer, Gall Bladder Disease, HTN, Hypercholesterolemia, Peripheral Edema, Chronic Kidney Disease, Sleep Apnea, TIA Surgical History: CABG (september 2008 x4), Cholecystectomy, Coronary Stent (9 stents) - [facility] Procedures APPLICATION OF SPLINT (06/09/14) CORONAR ARTERIOGR-2 CATH (12/14/14) DILATION OF 1 COR ART WITH DRUG-ELUT INTRALUM, PERC APPROACH (05/26/15) DILATION OF CORONARY ARTERY, ONE SITE, PERCUTANEOUS APPROACH (03/04/16) FLUOROSCOPY OF LEFT HEART USING LOW OSMOLAR CONTRAST (05/26/15) FLUOROSCOPY OF SINGLE CORONARY ARTERY USING L OSM CONTRAST (05/26/15) INFLUENZA VACCINATION (05/08/14) INSERT OF MONITOR DEV INTO CHEST SUBCU/FASCIA, PERC APPROACH (04/07/18) LEFT HEART CARDIAC CATH (12/14/14) LT HEART ANGIOCARDIOGRAM (12/14/14) MEASURE OF CARDIAC SAMPL & PRESSURE, L HEART, PERC APPROACH (03/04/16) OTHER ENDOSCOPY OF SM INTEST (01/21/14) PLAIN RADIOGRAPHY OF LEFT HEART USING OTHER CONTRAST (03/04/16) PLAIN RADIOGRAPHY OF MULT COR ART USING OTH CONTRAST (03/04/16) TETANUS TOXOID ADMINIST (06/09/14) TRANSFUSE NONAUT RED BLOOD CELLS IN PERIPH VEIN, PERC (03/30/16) VACCINATION NEC (05/08/14) Family History: States: Unknown Family Hx - Social History Hx Tobacco Use: No Hx Alcohol Use: No Hx Substance Use: No - Immunization History Hx Tetanus Toxoid Vaccination: Yes (06/09/14) Hx Influenza Vaccination: Yes (2015) Hx Pneumococcal Vaccination: Yes Review Of Systems Constitutional: Negative for: Fever, Chills Cardiovascular: Positive for: Chest Pain. Negative for: Palpitations Respiratory: Negative for: Cough, Shortness of Breath Gastrointestinal: Negative for: Nausea, Vomiting, Abdominal Pain Skin: Negative for: Rash Neurological: Negative for: Weakness, Numbness, Headache, Dizziness Psych: Negative for: Anxiety Physical Exam - Physical Exam Appears: Non-toxic, No Acute Distress Skin: Warm, Dry Head: Normacephalic Eye(s): bilateral: Normal Inspection Oral Mucosa: Moist Neck: Supple Chest: Symmetrical, Other (CABG scar) Cardiovascular: Rhythm Regular Respiratory: No Rales, No Rhonchi, No Wheezing Gastrointestinal/Abdominal: Soft, No Tenderness, No Guarding, No Rebound Back: Normal Inspection Extremity: Pedal Edema (trace bilateral ) Extremity: Bilateral: Atraumatic, Normal Color And Temperature, Normal ROM Pulses: Left Dorsalis Pedis: Normal, Right Dorsalis Pedis: Normal Neurological/Psych: Oriented x3, Normal Speech, Normal Cognition Gait: Steady ED Course And Treatment - Laboratory Results Result Diagrams: 06/14/18 04:53 06/14/18 04:53 ECG: Interpreted By Me, Viewed By Me ECG Rhythm: Sinus Rhythm (92), Nonspecific Changes O2 Sat by Pulse Oximetry: 95 Pulse Ox Interpretation: Normal - Radiology CXR: Interpreted by Me, Viewed By Me CXR Interpretation: Yes: Cardiomegaly, Other (cabg, unchanged from 04/03/18). No: Infiltrates, Fracture Progress Note: Plan: - EKG. - LAbs. - CXR. - UA Disposition Discussed With : Spencer Mcelroy Comment: accepted the pt [facility] is service and took over the care at 5:50 AM Doctor Will See Patient In The: Hospital Counseled Patient/Family Regarding: Studies Performed, Diagnosis - Disposition Disposition: HOSPITALIZED Disposition Time: 04:08 Condition: FAIR Forms: [employer] (Khmer) - Clinical Impression Clinical Impression: Chest pain, Diabetes type 2, uncontrolled, Hyperglycemia - Scribe Statement The provider has reviewed the documentation as recorded by the Scribe Alexx Pelayo All medical record entries made by the Scribe were at my direction and personally dictated by me. I have reviewed the chart and agree that the record accurately reflects my personal performance of the history, physical exam, medical decision making, and the department course for this patient. I have also personally directed, reviewed, and agree with the discharge instructions and disposition. Decision To Admit - Pt Status Changed To: Hospital Disposition Of: Inpatient - Admit Certification Admit to Inpatient:: After my assessment, the patient will require hospitalization for at least two midnights. This is because of the severity of symptoms shown, intensity of services needed, and/or the medical risk in this patient being treated as an outpatient. - InPatient: Physician Admission Certification: I certify that this patient requires 2 or more midnights of care for the following reason:: After my assessment, the patient will require hospitalization for at least two midnights. This is because of the severity of symptoms shown, intensity of services needed, and/or the medical risk in this patient being treated as an outpatient. - . Bed Request Type: Telemetry Admitting Physician: Spencer Mcelroy Patient Diagnosis: Chest pain, Diabetes type 2, uncontrolled, Hyperglycemia
[2018-06-14 04:09] VITALS: BMI 39.8
[2018-06-14 04:57] LABS: BASO % 0.6 % (0.0-2.0); EOS # 0.1 K/uL (0.0-0.7); EOS % 1.3 % (0.0-4.0); HEMOGLOBIN 13.6 g/dL (11.0-16.0); LYMPH # 1.5 K/uL (1.0-4.3); LYMPH % 25.8 % (20.0-40.0); MEAN CORPUSCULAR HEMOGLOBIN 32.7 pg (27.0-31.0); MEAN CORPUSCULAR HGB CONC 33.7 g/dL (33.0-37.0); MEAN PLATELET VOLUME 10.8 fL (7.2-11.7); MONO # 0.6 K/uL (0.0-0.8); MONO % 9.7 % (0.0-10.0); NEUT # 3.7 K/uL (1.8-7.0); NEUT % 62.6 % (50.0-75.0); NRBC % 0.1 % (0.0-2.0); RBC 4.15 Mil/uL (3.80-5.20); RED CELL DISTRIBUTION WIDTH 13.7 % (11.5-14.5); WHITE BLOOD COUNT 5.9 K/uL (4.8-10.8)
[2018-06-14] MEDS ORDERED: Morphine 4 MG/ML VIAL ONE (05:00)
[2018-06-14 05:20] LABS: B-TYPE NATRIURETIC PEPTIDE 207 pg/mL (0-900)
[2018-06-14 05:30] LABS: ALB/GLOB RATIO 1.3 (1.0-2.1); ALBUMIN 4.5 g/dL (3.5-5.0); ALT/SGPT 39 U/L (9-52); AST/SGOT 38 U/L (14-36); BLOOD UREA NITROGEN 28 mg/dL (7-17); GFR NON-AFRICAN AMERICAN 52
[2018-06-14] MEDS ORDERED: (Novolin R) Insulin Human Regular 100 units/ml vial IVP ONE (05:34)
[2018-06-14] MEDS ORDERED: (Novolin R) Insulin Human Regular 100 units/ml vial ONE (05:37)
--- NOTE | 2018-06-14 08:35 | RAD ---
Date of service: 06/14/2018 HISTORY: chest pain COMPARISON: Portable chest 04/03/2018. FINDINGS: LUNGS: No definite interval infiltrate appreciated. PLEURA: No significant pleural effusion identified, no pneumothorax apparent. CARDIOVASCULAR: No aortic atherosclerotic calcification present. Cardiac silhouette appears stable remaining somewhat prominent appearing. No pulmonary vascular congestion. OSSEOUS STRUCTURES: Signal abnormalities identified once again however an interval event recorder is suggested at the left chest. VISUALIZED UPPER ABDOMEN: Normal. OTHER FINDINGS: None. IMPRESSION: No definite acute infiltrate, pleural effusion or pneumothorax. No pulmonary vascular congestion. Event recorder identified in position.
[2018-06-14] MEDS ORDERED: Enoxaparin 40 mg Syringe SC SCH (10:00)
[2018-06-14] MEDS: Metoprolol Succinate 100 mg XL Tab PO SCH (10:40)
[2018-06-14] MEDS: Ranolazine 500 mg Extended Release Tablets PO SCH ×2 (11:51→17:01)
[2018-06-14] MEDS ORDERED: Glucagon Recombinant 1 mg Inj IM PRN (13:14)
[2018-06-14] MEDS ORDERED: Dextrose 50% SYRINGE Inj (50 ml) IV PRN (13:14)
[2018-06-14] MEDS: (Novolin R) Insulin Human Regular 100 units/ml vial SC SCH ×2 (17:00→21:03)
[2018-06-14] MEDS: Enoxaparin 120 mg Syringe SC SCH (17:46)
--- NOTE | 2018-06-14 20:47 | CP.PCM.HP ---
Past Patient History - Infectious Disease Hx of Infectious Diseases: None - Past Medical History & Family History Past Medical History?: Yes - Past Social History Smoking Status: Never Smoked - CARDIAC Hx Cardia Arrhythmia: Yes Hx Hypercholesterolemia: Yes Hx Hypertension: Yes Hx Peripheral Edema: Yes - PULMONARY Hx Asthma: Yes Hx Sleep Apnea: Yes - NEUROLOGICAL Hx Transient Ischemic Attacks (TIA): Yes - HEENT Hx HEENT Problems: No - RENAL Hx Chronic Kidney Disease: Yes - ENDOCRINE/METABOLIC Hx Endocrine Disorders: Yes Hx Diabetes Mellitus Type 1: Yes - HEMATOLOGICAL/ONCOLOGICAL Hx Blood Disorders: Yes - INTEGUMENTARY Hx Dermatological Problems: Yes Hx Psoriasis: Yes (mild) - MUSCULOSKELETAL/RHEUMATOLOGICAL Hx Falls: No - GASTROINTESTINAL Hx Gall Bladder Disease: Yes Hx Gastritis: Yes - GENITOURINARY/GYNECOLOGICAL Hx Genitourinary Disorders: No - PSYCHIATRIC Hx Substance Use: Yes (Marijuana 10 years ago) - SURGICAL HISTORY Hx Cholecystectomy: Yes Hx Coronary Artery Bypass Graft: Yes (september 2008 x4) Hx Coronary Stent: Yes (9 stents) - ANESTHESIA Hx Anesthesia: Yes Hx Anesthesia Reactions: No Hx Malignant Hyperthermia: No Meds Allergies/Adverse Reactions: Allergies Allergy/AdvReac Type Severity Reaction Status Date / Time iodine Allergy Severe URTICARIA Verified 04/03/18 13:18 latex Allergy Severe URTICARIA Verified 04/03/18 13:18 seafood Allergy Severe URTICARIA Uncoded 04/03/18 13:18 Physical Exam - Constitutional Appears: Well - Head Exam Head Exam: ATRAUMATIC, NORMAL INSPECTION, NORMOCEPHALIC - Eye Exam Eye Exam: EOMI, Normal appearance, PERRL Pupil Exam: NORMAL ACCOMODATION, PERRL - ENT Exam ENT Exam: Mucous Membranes Moist, Normal Exam - Neck Exam Neck exam: Positive for: Normal Inspection - Respiratory Exam Respiratory Exam: Decreased Breath Sounds - Cardiovascular Exam Cardiovascular Exam: REGULAR RHYTHM, +S1, +S2 - GI/Abdominal Exam GI & Abdominal Exam: Diminished Bowel Sounds, Soft - Rectal Exam Rectal Exam: Deferred Results - Vital Signs Recent Vital Signs: Last Vital Signs Temp 97.7 F 06/14/18 15:31 Pulse 85 06/14/18 15:31 Resp 20 06/14/18 15:31 BP 110/61 06/14/18 15:31 Pulse Ox 94 L 06/14/18 15:31 - Labs Result Diagrams: 06/14/18 04:53 06/14/18 04:53 Labs: Laboratory Results - last 24 hr 06/14/18 06/14/18 06/14/18 04:53 04:53 04:53 WBC 5.9 RBC 4.15 Hgb 13.6 Hct 40.3 MCV 97.0 D MCH 32.7 H MCHC 33.7 RDW 13.7 Plt Count 155 MPV 10.8 Neut % (Auto) 62.6 Lymph % (Auto) 25.8 [place] % (Auto) 9.7 Eos % (Auto) 1.3 Baso % (Auto) 0.6 Neut # (Auto) 3.7 Lymph # (Auto) 1.5 [place] # (Auto) 0.6 Eos # (Auto) 0.1 Baso # (Auto) 0.0 PT 11.0 INR 1.0 APTT 27 Sodium 131 L Potassium 5.4 H Chloride 94 L Carbon Dioxide 28 Anion Gap 15 BUN 28 H Creatinine 1.1 Est GFR ( Amer) > 60 Est GFR (Non-Af Amer) 52 POC Glucose (mg/dL) Random Glucose 512 H* D Calcium 9.0 Total Bilirubin 0.5 AST 38 H D ALT 39 Alkaline Phosphatase 112 Troponin I 0.0200 NT-Pro-B Natriuret Pep 207 Total Protein 8.1 Albumin 4.5 Globulin 3.6 Albumin/Globulin Ratio 1.3 06/14/18 06/14/18 06:03 14:04 WBC RBC Hgb Hct MCV MCH MCHC RDW Plt Count MPV Neut % (Auto) Lymph % (Auto) [place] % (Auto) Eos % (Auto) Baso % (Auto) Neut # (Auto) Lymph # (Auto) [place] # (Auto) Eos # (Auto) Baso # (Auto) PT INR APTT Sodium Potassium Chloride Carbon Dioxide Anion Gap BUN Creatinine Est GFR ( Amer) Est GFR (Non-Af Amer) POC Glucose (mg/dL) 392 H Random Glucose Calcium Total Bilirubin AST ALT Alkaline Phosphatase Troponin I 1.0800 H* NT-Pro-B Natriuret Pep Total Protein Albumin Globulin Albumin/Globulin Ratio
[2018-06-15 07:36] LABS: BASO % 0.6 % (0.0-2.0); EOS # 0.1 K/uL (0.0-0.7); EOS % 1.5 % (0.0-4.0); HEMOGLOBIN 13.9 g/dL (11.0-16.0); LYMPH # 1.5 K/uL (1.0-4.3); MEAN CELL VOLUME 96.3 fL (81.0-99.0); MEAN CORPUSCULAR HEMOGLOBIN 33.3 pg (27.0-31.0); MEAN CORPUSCULAR HGB CONC 34.5 g/dL (33.0-37.0); MEAN PLATELET VOLUME 10.6 fL (7.2-11.7); MONO # 0.5 K/uL (0.0-0.8); MONO % 12.4 % (0.0-10.0); NEUT # 1.7 K/uL (1.8-7.0); NEUT % 46.5 % (50.0-75.0); NRBC % 0.1 % (0.0-2.0); RBC 4.16 Mil/uL (3.80-5.20); RED CELL DISTRIBUTION WIDTH 13.7 % (11.5-14.5); WHITE BLOOD COUNT 3.8 K/uL (4.8-10.8)
[2018-06-15] MEDS: (Novolin R) Insulin Human Regular 100 units/ml vial SC SCH ×4 (08:03→21:47)
[2018-06-15 08:08] LABS: ALB/GLOB RATIO 1.2 (1.0-2.1); ALBUMIN 4.3 g/dL (3.5-5.0); ALT/SGPT 55 U/L (9-52); AST/SGOT 59 U/L (14-36); BLOOD UREA NITROGEN 25 mg/dL (7-17); CALCIUM 9.1 mg/dl (8.6-10.4); GFR NON-AFRICAN AMERICAN > 60
[2018-06-15] MEDS: Ranolazine 500 mg Extended Release Tablets PO SCH ×2 (10:13→17:54)
[2018-06-15] MEDS: Metoprolol Succinate 100 mg XL Tab PO SCH (10:13)
[2018-06-15] MEDS: Enoxaparin 120 mg Syringe SC SCH (10:14)
[2018-06-15 13:59] LABS: SQUAMOUS EPITHIAL 12 /hpf (0-5)
[2018-06-15 14:00] LABS: URINE BILIRUBIN NEGATIVE (NEGATIVE); URINE BLOOD NEGATIVE (NEGATIVE); URINE CLARITY Hazy (Clear); URINE COLOR Yellow (YELLOW); URINE GLUCOSE (UA) 3+ mg/dL (Normal); URINE LEUKOCYTE ESTERASE TRACE Leu/uL (Negative); URINE PROTEIN NEGATIVE (NEGATIVE); URINE UROBILINOGEN NORMAL mg/dL (0.2-1.0)
--- NOTE | 2018-06-15 15:32 | CP.PCM.CON ---
History of Present Illness - History of Present Illness History of Present Illness: Pulmonology Consult- shortness of breath 52 year old female with pmh asthma, CAD, CABG s/p stents presented to ED for evaluation of chest pain. Pain started at 0100 06/14/18 and described as dull, ache, squeezing, /10. Today patient is breathing well. No fever, chills, SOB, cough, nausea, vomiting, diarrhea. pmh- HTN, hypercholesterolemia, DM, TIA, sleep apnea, CKD psh- CABGx4 in 2008, stents x9, cholecystectomy medications- gabapentin 300mg bid, furosemide 40mg daily, Plavix 75mg daily, ASA 81mg daily, Ranexa 1000mg bid, protonix 40mg daily, metoprolol 100mg daily, meclizine 12.5mg daily, loratidine 10mg daily allergies- iodine, latex, seafood (rash) Patient examined sitting in chair at bedside. Afebrile, resting comfortably. Good air entry, lungs clear. CXR 06/04 no acute effusions, infiltrates, or pneumothorax EKG 06/14 NSR, prolonged QTc, ST and T abnormalities suggesting lateral ischemia 06/14 trop 0.02 -> 1/08 -> 0.88 06/15 WBC 3.8, CO2 27 Continue Medical management Continue VTE prophylaxis Past Patient History - Infectious Disease Hx of Infectious Diseases: None - Past Medical History & Family History Past Medical History?: Yes - Past Social History Smoking Status: Never Smoked - CARDIAC Hx Cardia Arrhythmia: Yes Hx Hypercholesterolemia: Yes Hx Hypertension: Yes Hx Peripheral Edema: Yes - PULMONARY Hx Asthma: Yes Hx Sleep Apnea: Yes - NEUROLOGICAL Hx Transient Ischemic Attacks (TIA): Yes - HEENT Hx HEENT Problems: No - RENAL Hx Chronic Kidney Disease: Yes - ENDOCRINE/METABOLIC Hx Endocrine Disorders: Yes Hx Diabetes Mellitus Type 1: Yes - HEMATOLOGICAL/ONCOLOGICAL Hx Blood Disorders: Yes - INTEGUMENTARY Hx Dermatological Problems: Yes Hx Psoriasis: Yes (mild) - MUSCULOSKELETAL/RHEUMATOLOGICAL Hx Falls: No - GASTROINTESTINAL Hx Gall Bladder Disease: Yes Hx Gastritis: Yes - GENITOURINARY/GYNECOLOGICAL Hx Genitourinary Disorders: No - PSYCHIATRIC Hx Substance Use: Yes (Marijuana 10 years ago) - SURGICAL HISTORY Hx Cholecystectomy: Yes Hx Coronary Artery Bypass Graft: Yes (september 2008 x4) Hx Coronary Stent: Yes (9 stents) - ANESTHESIA Hx Anesthesia: Yes Hx Anesthesia Reactions: No Hx Malignant Hyperthermia: No Meds Allergies/Adverse Reactions: Allergies Allergy/AdvReac Type Severity Reaction Status Date / Time iodine Allergy Severe URTICARIA Verified 04/03/18 13:18 latex Allergy Severe URTICARIA Verified 04/03/18 13:18 seafood Allergy Severe URTICARIA Uncoded 04/03/18 13:18 - Medications Medications: Current Medications Aspirin (Aspirin) 325 mg PO DAILY [facility] Last Admin: 06/15/18 10:13 Dose: 325 mg Clopidogrel Bisulfate (Plavix) 75 mg PO DAILY [facility] Last Admin: 06/15/18 10:13 Dose: 75 mg Dextrose (Dextrose 50% Inj) 0 ml IV STAT PRN; Protocol PRN Reason: Hypoglycemia Protocol Dextrose (Glutose 15) 0 gm PO ONCE PRN; Protocol PRN Reason: Hypoglycemia Protocol Enoxaparin Sodium (Lovenox) 104.7 mg SC BID [facility] Last Admin: 06/15/18 10:14 Dose: 104.7 mg Famotidine (Pepcid) 20 mg PO DAILY [facility] Last Admin: 06/15/18 10:13 Dose: 20 mg Furosemide (Lasix) 40 mg PO DAILY [facility] Last Admin: 06/15/18 10:13 Dose: 40 mg Gabapentin (Neurontin) 300 mg PO BID [facility] Last Admin: 06/15/18 10:13 Dose: 300 mg Glucagon (Glucagen Diagnostic Kit) 0 mg IM STAT PRN; Protocol PRN Reason: Hypoglycemia Protocol Dextrose (Dextrose 5% In Water 1000 Ml) 1,000 mls @ 0 mls/hr IV .Q0M PRN; Protocol PRN Reason: Hypoglycemia Protocol Insulin Human Regular (Novolin R) 0 unit SC [facility]; Protocol Last Admin: 06/15/18 11:57 Dose: 8 unit Loratadine (Claritin) 10 mg PO DAILY [facility] Last Admin: 06/15/18 10:13 Dose: 10 mg Meclizine HCl (Antivert) 12.5 mg PO BID PRN PRN Reason: Dizziness Metoprolol Succinate (Toprol Xl) 100 mg PO DAILY [facility] Last Admin: 06/15/18 10:13 Dose: 100 mg Ranolazine (Ranexa) 1,000 mg PO BID [facility] Last Admin: 06/15/18 10:13 Dose: 1,000 mg Results - Vital Signs Recent Vital Signs: Last Vital Signs Temp 97.9 F 06/15/18 07:00 Pulse 69 06/15/18 12:00 Resp 20 06/15/18 07:00 BP 124/63 06/15/18 10:13 Pulse Ox 98 06/15/18 07:00 - Labs Result Diagrams: 06/15/18 07:17 06/15/18 07:17 Labs: Laboratory Results - last 24 hr 06/14/18 06/14/18 06/14/18 06:48 11:39 16:41 WBC RBC Hgb Hct MCV MCH MCHC RDW Plt Count MPV Neut % (Auto) Lymph % (Auto) [place] % (Auto) Eos % (Auto) Baso % (Auto) Neut # (Auto) Lymph # (Auto) [place] # (Auto) Eos # (Auto) Baso # (Auto) Sodium Potassium Chloride Carbon Dioxide Anion Gap BUN Creatinine Est GFR ( Amer) Est GFR (Non-Af Amer) POC Glucose (mg/dL) 314 H 304 H 260 H Random Glucose Calcium Total Bilirubin AST ALT Alkaline Phosphatase Troponin I Total Protein Albumin Globulin Albumin/Globulin Ratio Urine Color Urine Clarity Urine pH Ur Specific [place] Urine Protein Urine Glucose (UA) Urine Ketones Urine Blood Urine Nitrate Urine Bilirubin Urine Urobilinogen Ur Leukocyte Esterase Urine WBC (Auto) Urine RBC (Auto) Ur Squamous Epith Cells Urine Yeast (Budding) 06/14/18 06/14/18 06/15/18 20:53 21:01 07:17 WBC 3.8 L RBC 4.16 Hgb 13.9 Hct 40.1 MCV 96.3 MCH 33.3 H MCHC 34.5 RDW 13.7 Plt Count 174 MPV 10.6 Neut % (Auto) 46.5 L Lymph % (Auto) 39.0 [place] % (Auto) 12.4 H Eos % (Auto) 1.5 Baso % (Auto) 0.6 Neut # (Auto) 1.7 L Lymph # (Auto) 1.5 [place] # (Auto) 0.5 Eos # (Auto) 0.1 Baso # (Auto) 0.0 Sodium Potassium Chloride Carbon Dioxide Anion Gap BUN Creatinine Est GFR ( Amer) Est GFR (Non-Af Amer) POC Glucose (mg/dL) 296 H Random Glucose Calcium Total Bilirubin AST ALT Alkaline Phosphatase Troponin I 0.8840 H* Total Protein Albumin Globulin Albumin/Globulin Ratio Urine Color Urine Clarity Urine pH Ur Specific [place] Urine Protein Urine Glucose (UA) Urine Ketones Urine Blood Urine Nitrate Urine Bilirubin Urine Urobilinogen Ur Leukocyte Esterase Urine WBC (Auto) Urine RBC (Auto) Ur Squamous Epith Cells Urine Yeast (Budding) 06/15/18 06/15/18 07:17 13:37 WBC RBC Hgb Hct MCV MCH MCHC RDW Plt Count MPV Neut % (Auto) Lymph % (Auto) [place] % (Auto) Eos % (Auto) Baso % (Auto) Neut # (Auto) Lymph # (Auto) [place] # (Auto) Eos # (Auto) Baso # (Auto) Sodium 133 Potassium 4.4 Chloride 96 L Carbon Dioxide 27 Anion Gap 14 BUN 25 H Creatinine 0.8 Est GFR ( Amer) > 60 Est GFR (Non-Af Amer) > 60 POC Glucose (mg/dL) Random Glucose 316 H D Calcium 9.1 Total Bilirubin 0.9 AST 59 H D ALT 55 H D Alkaline Phosphatase 109 Troponin I Total Protein 8.0 Albumin 4.3 Globulin 3.6 Albumin/Globulin Ratio 1.2 Urine Color Yellow Urine Clarity Hazy Urine pH 5.0 Ur Specific [place] 1.029 Urine Protein Negative Urine Glucose (UA) 3+ H Urine Ketones Negative Urine Blood Negative Urine Nitrate Negative Urine Bilirubin Negative Urine Urobilinogen Normal Ur Leukocyte Esterase Trace Urine WBC (Auto) 11 H Urine RBC (Auto) 3 Ur Squamous Epith Cells 12 H Urine Yeast (Budding) Few H
--- NOTE | 2018-06-15 17:00 | CP.PCM.CON ---
History of Present Illness - History of Present Illness History of Present Illness: I was asked to evaluate patient by Dr Mcelroy. Patient was seen 06/15/18 at [facility] Patient is a 52 year old female with HTN hypercholesterolemia DM s/p multivessel PCI, CABG who presents with usntable angina. Patient describes the sudden onset of chest pressure, substernal, and associated dyspnea. The patient describes symptoms which woke her from sleep. She describes associated headache and flushed feeling. The patient presented to [facility] for further management. She ruled in for myocardial infarction by troponin. She was started on lovenox. Review of Systems - Constitutional Constitutional: absent: As Per HPI, Anorexia, Chills, Daytime Sleepiness, Excessive Sweating, Fatigue, Fever, Frequent Falls, Headache, Increased Appetite, Lethargy, Malaise, Night Sweats, Snoring, Sleep Apnea, Weight Gain, Weight Loss, Weakness, Other - EENT Eyes: absent: As Per HPI, Blind Spots, Blurred Vision, Change in Vision, D ecreased Night Vision, Diplopia, Discharge, Dry Eye, Exophthalmos, Floaters, Irritation, Itchy Eyes, Loss of Peripheral Vision, Pain, Photophobia, Requires Corrective Lenses, Sees Flashes, Spots in Vision, Tunnel Vision, Other Visual Disturbances, Loss of Vision, Other Ears: absent: As Per HPI, Decreased Hearing, Ear Discharge, Ear Pain, Tinnitus, Abnormal Hearing, Disequilibrium, Dizziness, Other Nose/Mouth/Throat: absent: As Per HPI, Epistaxis, Nasal Congestion, Nasal Discharge, Nasal Obstruction, Nasal Trauma, Nose Pain, Post Nasal Drip, Sinus Pain, Sinus Pressure, Bleeding Gums, Change in Voice, Dental Pain, Dry Mouth, Dysphagia, Halitosis, Hoarsness, Lip Swelling, Mouth Lesions, Mouth Pain, Odynophagia, Sore Throat, Throat Swelling, Tongue Swelling, Facial Pain, Neck Pain, Neck Mass, Other - Cardiovascular Cardiovascular: Chest Pain, Dyspnea - Respiratory Respiratory: Dyspnea - Gastrointestinal Gastrointestinal: absent: As Per HPI, Abdominal Pain, Belching, Bloating, Change in Bowel Habits, Change in Stool Character, Coffee Ground Emesis, Constipation, Cramping, Diarrhea, Dyspepsia, Dysphagia, Early Satiety, Excessive Flatus, Fecal Incontinence, Heartburn, Hematemesis, Hematochezia, Loose Stools, Melena, Naus ea, Odynophagia, Temesmus, Vomiting, Other - Genitourinary Genitourinary: absent: As Per HPI, Change in Urinary Stream, Difficulty Urinating, Dysuria, Flank Pain, Hematuria, Pyuria, Nocturia, Urinary Incontinence, Urinary Frequency, Urinary Hesitance, Urinary Urgency, Voiding Freq/Small Amts, Freq UTI, Hx Renal/Bladder Calculi, Hx /Renal Surgery, Bladder Distension, Other - Musculoskeletal Musculoskeletal: absent: As Per HPI, Abnormal Gait, Arthralgias, Atrophy, Back Pain, Deformity, Joint Swelling, Limited Range of Motion, Loss of Height, Muscle Cramps, Muscle Weakness, Myalgias, Neck Pain, Numbness, Radiating Pain into Limb, Stiffness, Tingling, Other - Integumentary Integumentary: absent: As Per HPI, Acne, Alopecia, Bleeding Lesions, Change in Hair, Change in Nails, Change in Pigmentation, Changing Lesions, Dry Skin, Erythema, Furuncle, Hirsutism, Lesions, New Lesions, Non-Healing Lesions, Photosensitivity, Pruritus, Rash, Skin Pain, Skin Ulcer, Sores, Striae, Swe lling, Unusual Bruising, Wounds, Jaundice, Other - Neurological Neurological: absent: As Per HPI, Abnormal Gait, Abnormal Hearing, Abnormal Movements, Abnormal Speech, Behavioral Changes, Burning Sensations, Confusion, Convulsions, Disequilibrium, Dizziness, Numbness, Focal Weakness, Frequent Falls, Headaches, Lack of Coordination, Loss of Vision, Memory Loss, Paresthesias, Radicular Pain, Restless Legs, Sensory Deficit, Syncope, Tingling, Tremor, Vertigo, Weakness, Other Visual Disturbances, Other - Psychiatric Psychiatric: absent: As Per HPI, Abnormal Sleep Pattern, Anhedonia, Anxiety, Auditory Hallucinations, Behavioral Changes, Change in Appetite, Change in Libido, Confusion, Depression, Difficulty Concentrating, Hallucinations, Homicidal Ideation, Hopelessness, Irritability, Memory Loss, Mood Swings, Panic Attacks, Paranoia, Suicidal Ideation, Visual Hallucinations, Tactile Hallucinations, Other - Endocrine Endocrine: absent: As Per HPI, Change in Body Appearance, Change in Libido, Cold Intolorance, Deepening of Voice, Excessive Sweating, Fatigue, Flushing, Heat Intolorance, Increase in Ring/Shoe/Hat Size, Palpitations, Polydipsia, Polyphagia, Polyuria, Other - Hematologic/Lymphatic Hematologic: absent: As Per HPI, Easy Bleeding, Easy Bruising, Lymphadenopathy, Other Past Patient History - Infectious Disease Hx of Infectious Diseases: None - Past Medical History & Family History Past Medical History?: Yes - Past Social History Smoking Status: Never Smoked - CARDIAC Hx Cardia Arrhythmia: Yes Hx Hypercholesterolemia: Yes Hx Hypertension: Yes Hx Peripheral Edema: Yes - PULMONARY Hx Asthma: Yes Hx Sleep Apnea: Yes - NEUROLOGICAL Hx Transient Ischemic Attacks (TIA): Yes - HEENT Hx HEENT Problems: No - RENAL Hx Chronic Kidney Disease: Yes - ENDOCRINE/METABOLIC Hx Endocrine Disorders: Yes Hx Diabetes Mellitus Type 1: Yes - HEMATOLOGICAL/ONCOLOGICAL Hx Blood Disorders: Yes - INTEGUMENTARY Hx Dermatological Problems: Yes Hx Psoriasis: Yes (mild) - MUSCULOSKELETAL/RHEUMATOLOGICAL Hx Falls: No - GASTROINTESTINAL Hx Gall Bladder Disease: Yes Hx Gastritis: Yes - GENITOURINARY/GYNECOLOGICAL Hx Genitourinary Disorders: No - PSYCHIATRIC Hx Substance Use: Yes (Marijuana 10 years ago) - SURGICAL HISTORY Hx Cholecystectomy: Yes Hx Coronary Artery Bypass Graft: Yes (september 2008 x4) Hx Coronary Stent: Yes (9 stents) - ANESTHESIA Hx Anesthesia: Yes Hx Anesthesia Reactions: No Hx Malignant Hyperthermia: No Meds Allergies/Adverse Reactions: Allergies Allergy/AdvReac Type Severity Reaction Status Date / Time iodine Allergy Severe URTICARIA Verified 04/03/18 13:18 latex Allergy Severe URTICARIA Verified 04/03/18 13:18 seafood Allergy Severe URTICARIA Uncoded 04/03/18 13:18 - Medications Medications: Current Medications Aspirin (Aspirin) 325 mg PO DAILY [facility] Last Admin: 06/15/18 10:13 Dose: 325 mg Clopidogrel Bisulfate (Plavix) 75 mg PO DAILY [facility] Last Admin: 06/15/18 10:13 Dose: 75 mg Dextrose (Dextrose 50% Inj) 0 ml IV STAT PRN; Protocol PRN Reason: Hypoglycemia Protocol Dextrose (Glutose 15) 0 gm PO ONCE PRN; Protocol PRN Reason: Hypoglycemia Protocol Enoxaparin Sodium (Lovenox) 104.7 mg SC BID [facility] Last Admin: 06/15/18 10:14 Dose: 104.7 mg Famotidine (Pepcid) 20 mg PO DAILY [facility] Last Admin: 06/15/18 10:13 Dose: 20 mg Furosemide (Lasix) 40 mg PO DAILY [facility] Last Admin: 06/15/18 10:13 Dose: 40 mg Gabapentin (Neurontin) 300 mg PO BID [facility] Last Admin: 06/15/18 10:13 Dose: 300 mg Glucagon (Glucagen Diagnostic Kit) 0 mg IM STAT PRN; Protocol PRN Reason: Hypoglycemia Protocol Dextrose (Dextrose 5% In Water 1000 Ml) 1,000 mls @ 0 mls/hr IV .Q0M PRN; Protocol PRN Reason: Hypoglycemia Protocol Insulin Human Regular (Novolin R) 0 unit SC ACHS [facility]; Protocol Last Admin: 06/15/18 11:57 Dose: 8 unit Loratadine (Claritin) 10 mg PO DAILY [facility] Last Admin: 06/15/18 10:13 Dose: 10 mg Meclizine HCl (Antivert) 12.5 mg PO BID PRN PRN Reason: Dizziness Metoprolol Succinate (Toprol Xl) 100 mg PO DAILY [facility] Last Admin: 06/15/18 10:13 Dose: 100 mg Ranolazine (Ranexa) 1,000 mg PO BID [facility] Last Admin: 06/15/18 10:13 Dose: 1,000 mg Physical Exam - Constitutional Appears: Non-toxic - Head Exam Head Exam: NORMAL INSPECTION - Eye Exam Eye Exam: Normal appearance. absent: Periorbital swelling, Periorbital tenderness - ENT Exam ENT Exam: Mucous Membranes Moist, Normal Exam - Neck Exam Neck exam: Positive for: Full Rom, Normal Inspection. Negative for: Lymphadenopathy, Tenderness, Thyromegaly - Respiratory Exam Respiratory Exam: NORMAL BREATHING PATTERN. absent: Rales, Rhonchi, Wheezes, Respiratory Distress - Cardiovascular Exam Cardiovascular Exam: REGULAR RHYTHM, RRR, +S1, +S2. absent: JVD, Systolic Murmur - GI/Abdominal Exam GI & Abdominal Exam: Normal Bowel Sounds - Extremities Exam Extremities exam: Positive for: normal inspection, pedal pulses present. Negative for: pedal edema, tenderness - Back Exam Back exam: NORMAL INSPECTION - Neurological Exam Neurological exam: Alert, Oriented x3 - Psychiatric Exam Psychiatric exam: Normal Affect - Skin Skin Exam: Dry, Normal Color Results - Vital Signs Recent Vital Signs: Last Vital Signs Temp 97.7 F 06/15/18 15:05 Pulse 58 L 06/15/18 16:00 Resp 20 06/15/18 15:05 BP 123/68 06/15/18 15:05 Pulse Ox 96 06/15/18 15:05 - Labs Result Diagrams: 06/15/18 07:17 06/15/18 07:17 Labs: Laboratory Results - last 24 hr 06/14/18 06/14/18 06/14/18 06:48 11:39 16:41 WBC RBC Hgb Hct MCV MCH MCHC RDW Plt Count MPV Neut % (Auto) Lymph % (Auto) [place] % (Auto) Eos % (Auto) Baso % (Auto) Neut # (Auto) Lymph # (Auto) [place] # (Auto) Eos # (Auto) Baso # (Auto) Sodium Potassium Chloride Carbon Dioxide Anion Gap BUN Creatinine Est GFR ( Amer) Est GFR (Non-Af Amer) POC Glucose (mg/dL) 314 H 304 H 260 H Random Glucose Calcium Total Bilirubin AST ALT Alkaline Phosphatase Troponin I Total Protein Albumin Globulin Albumin/Globulin Ratio Urine Color Urine Clarity Urine pH Ur Specific [place] Urine Protein Urine Glucose (UA) Urine Ketones Urine Blood Urine Nitrate Urine Bilirubin Urine Urobilinogen Ur Leukocyte Esterase Urine WBC (Auto) Urine RBC (Auto) Ur Squamous Epith Cells Urine Yeast (Budding) 06/14/18 06/14/18 06/15/18 20:53 21:01 07:17 WBC 3.8 L RBC 4.16 Hgb 13.9 Hct 40.1 MCV 96.3 MCH 33.3 H MCHC 34.5 RDW 13.7 Plt Count 174 MPV 10.6 Neut % (Auto) 46.5 L Lymph % (Auto) 39.0 [place] % (Auto) 12.4 H Eos % (Auto) 1.5 Baso % (Auto) 0.6 Neut # (Auto) 1.7 L Lymph # (Auto) 1.5 [place] # (Auto) 0.5 Eos # (Auto) 0.1 Baso # (Auto) 0.0 Sodium Potassium Chloride Carbon Dioxide Anion Gap BUN Creatinine Est GFR ( Amer) Est GFR (Non-Af Amer) POC Glucose (mg/dL) 296 H Random Glucose Calcium Total Bilirubin AST ALT Alkaline Phosphatase Troponin I 0.8840 H* Total Protein Albumin Globulin Albumin/Globulin Ratio Urine Color Urine Clarity Urine pH Ur Specific [place] Urine Protein Urine Glucose (UA) Urine Ketones Urine Blood Urine Nitrate Urine Bilirubin Urine Urobilinogen Ur Leukocyte Esterase Urine WBC (Auto) Urine RBC (Auto) Ur Squamous Epith Cells Urine Yeast (Budding) 06/15/18 06/15/18 06/15/18 07:17 11:46 13:37 WBC RBC Hgb Hct MCV MCH MCHC RDW Plt Count MPV Neut % (Auto) Lymph % (Auto) [place] % (Auto) Eos % (Auto) Baso % (Auto) Neut # (Auto) Lymph # (Auto) [place] # (Auto) Eos # (Auto) Baso # (Auto) Sodium 133 Potassium 4.4 Chloride 96 L Carbon Dioxide 27 Anion Gap 14 BUN 25 H Creatinine 0.8 Est GFR ( Amer) > 60 Est GFR (Non-Af Amer) > 60 POC Glucose (mg/dL) 320 H Random Glucose 316 H D Calcium 9.1 Total Bilirubin 0.9 AST 59 H D ALT 55 H D Alkaline Phosphatase 109 Troponin I Total Protein 8.0 Albumin 4.3 Globulin 3.6 Albumin/Globulin Ratio 1.2 Urine Color Yellow Urine Clarity Hazy Urine pH 5.0 Ur Specific [place] 1.029 Urine Protein Negative Urine Glucose (UA) 3+ H Urine Ketones Negative Urine Blood Negative Urine Nitrate Negative Urine Bilirubin Negative Urine Urobilinogen Normal Ur Leukocyte Esterase Trace Urine WBC (Auto) 11 H Urine RBC (Auto) 3 Ur Squamous Epith Cells 12 H Urine Yeast (Budding) Few H - EKG Data EKG Interpreted by: Myself EKG shows normal: Sinus rhythm Assessment & Plan (1) NSTEMI (non-ST elevated myocardial infarction) Assessment and Plan: patient ruled in for myocardial infarction. Given extensive cardaic history with CABG and previous PCI recommend cardiac catheterization and likely PCI. will transfer for cath/PCI tomorrow. Status: Acute (2) CAD (coronary artery disease) Assessment and Plan: will maintain antiplatelet therapy Status: Acute (3) HTN (hypertension) Assessment and Plan: blood pressure control Status: Acute (4) Hypercholesteremia Assessment and Plan: statin therapy. Status: Acute
--- NOTE | 2018-06-15 19:40 | CARD ---
APPROVED REPORT Date of service: 06/14/2018 EKG Measurement Heart [id number] <Conclusion> Normal sinus rhythm Possible Left atrial enlargement ST & T wave abnormality, consider lateral ischemia Prolonged QT Abnormal ECG
--- NOTE | 2018-06-15 21:08 | CP.PCM.PN ---
Subjective - Date & Time of Evaluation Date of Evaluation: 06/15/18 Time of Evaluation: 12:45 - Subjective Subjective: clinically same Objective - Vital Signs/Intake and Output Vital Signs (last 24 hours): Temp Pulse Resp BP Pulse Ox 97.7 F 58 L 20 123/68 96 06/15/18 15:05 06/15/18 16:00 06/15/18 15:05 06/15/18 15:05 06/15/18 15:05 - Medications Medications: Current Medications Aspirin (Aspirin) 325 mg PO DAILY [facility] Last Admin: 06/15/18 10:13 Dose: 325 mg Clopidogrel Bisulfate (Plavix) 75 mg PO DAILY [facility] Last Admin: 06/15/18 10:13 Dose: 75 mg Dextrose (Dextrose 50% Inj) 0 ml IV STAT PRN; Protocol PRN Reason: Hypoglycemia Protocol Dextrose (Glutose 15) 0 gm PO ONCE PRN; Protocol PRN Reason: Hypoglycemia Protocol Famotidine (Pepcid) 20 mg PO DAILY [facility] Last Admin: 06/15/18 10:13 Dose: 20 mg Furosemide (Lasix) 40 mg PO DAILY [facility] Last Admin: 06/15/18 10:13 Dose: 40 mg Gabapentin (Neurontin) 300 mg PO BID [facility] Last Admin: 06/15/18 17:54 Dose: 300 mg Glucagon (Glucagen Diagnostic Kit) 0 mg IM STAT PRN; Protocol PRN Reason: Hypoglycemia Protocol Dextrose (Dextrose 5% In Water 1000 Ml) 1,000 mls @ 0 mls/hr IV .Q0M PRN; Protocol PRN Reason: Hypoglycemia Protocol Insulin Human Regular (Novolin R) 0 unit SC ACHS [facility]; Protocol Last Admin: 06/15/18 17:54 Dose: 8 unit Loratadine (Claritin) 10 mg PO DAILY [facility] Last Admin: 06/15/18 10:13 Dose: 10 mg Meclizine HCl (Antivert) 12.5 mg PO BID PRN PRN Reason: Dizziness Metoprolol Succinate (Toprol Xl) 100 mg PO DAILY [facility] Last Admin: 06/15/18 10:13 Dose: 100 mg Ranolazine (Ranexa) 1,000 mg PO BID [facility] Last Admin: 06/15/18 17:54 Dose: 1,000 mg - Labs Labs: 06/15/18 07:17 06/15/18 07:17 PT 11.0 SECONDS (9.7-12.2) 06/14/18 04:53 INR 1.0 06/14/18 04:53 APTT 27 SECONDS (21-34) 06/14/18 04:53 - Constitutional Appears: Well - Head Exam Head Exam: ATRAUMATIC, NORMAL INSPECTION, NORMOCEPHALIC - Eye Exam Eye Exam: EOMI, Normal appearance, PERRL Pupil Exam: NORMAL ACCOMODATION, PERRL - ENT Exam ENT Exam: Mucous Membranes Moist, Normal Exam - Neck Exam Neck Exam: Full ROM, Normal Inspection. absent: Lymphadenopathy - Respiratory Exam Respiratory Exam: Decreased Breath Sounds - Cardiovascular Exam Cardiovascular Exam: REGULAR RHYTHM, +S1, +S2 - GI/Abdominal Exam GI & Abdominal Exam: Soft, Diminished Bowel Sounds - Rectal Exam Rectal Exam: Deferred
[2018-06-16] MEDS: (Novolin R) Insulin Human Regular 100 units/ml vial SC SCH ×4 (08:16→21:42)
[2018-06-16] MEDS: Ranolazine 500 mg Extended Release Tablets PO SCH ×2 (09:16→18:55)
[2018-06-16] MEDS: Metoprolol Succinate 100 mg XL Tab PO SCH (09:16)
--- NOTE | 2018-06-16 15:23 | CP.PCM.PN ---
Subjective - Date & Time of Evaluation Date of Evaluation: 06/16/18 Time of Evaluation: 11:45 - Subjective Subjective: clinically same Objective - Vital Signs/Intake and Output Vital Signs (last 24 hours): Temp Pulse Resp BP Pulse Ox 97.5 F L 66 20 128/66 95 06/16/18 10:11 06/16/18 10:11 06/16/18 10:11 06/16/18 10:11 06/16/18 10:11 Intake and Output: 06/16/18 06/16/18 06:59 18:59 Intake Total 400 Balance 400 - Medications Medications: Current Medications Aspirin (Aspirin) 325 mg PO DAILY [facility] Last Admin: 06/16/18 09:16 Dose: 325 mg Clopidogrel Bisulfate (Plavix) 75 mg PO DAILY [facility] Last Admin: 06/16/18 09:16 Dose: 75 mg Dextrose (Dextrose 50% Inj) 0 ml IV STAT PRN; Protocol PRN Reason: Hypoglycemia Protocol Dextrose (Glutose 15) 0 gm PO ONCE PRN; Protocol PRN Reason: Hypoglycemia Protocol Famotidine (Pepcid) 20 mg PO DAILY [facility] Last Admin: 06/16/18 09:20 Dose: Not Given Furosemide (Lasix) 40 mg PO DAILY [facility] Last Admin: 06/16/18 09:16 Dose: 40 mg Gabapentin (Neurontin) 300 mg PO BID [facility] Last Admin: 06/16/18 09:16 Dose: 300 mg Glucagon (Glucagen Diagnostic Kit) 0 mg IM STAT PRN; Protocol PRN Reason: Hypoglycemia Protocol Dextrose (Dextrose 5% In Water 1000 Ml) 1,000 mls @ 0 mls/hr IV .Q0M PRN; Protocol PRN Reason: Hypoglycemia Protocol Insulin Human Regular (Novolin R) 0 unit SC [facility]; Protocol Last Admin: 06/16/18 11:39 Dose: Not Given Loratadine (Claritin) 10 mg PO DAILY [facility] Last Admin: 06/16/18 09:20 Dose: Not Given Meclizine HCl (Antivert) 12.5 mg PO BID PRN PRN Reason: Dizziness Metoprolol Succinate (Toprol Xl) 100 mg PO DAILY [facility] Last Admin: 06/16/18 09:16 Dose: 100 mg Ranolazine (Ranexa) 1,000 mg PO BID [facility] Last Admin: 06/16/18 09:16 Dose: 1,000 mg - Labs Labs: 06/15/18 07:17 06/15/18 07:17 PT 11.0 SECONDS (9.7-12.2) 06/14/18 04:53 INR 1.0 06/14/18 04:53 APTT 27 SECONDS (21-34) 06/14/18 04:53 - Constitutional Appears: Well - Head Exam Head Exam: ATRAUMATIC, NORMAL INSPECTION, NORMOCEPHALIC - Eye Exam Eye Exam: EOMI, Normal appearance, PERRL Pupil Exam: NORMAL ACCOMODATION, PERRL - ENT Exam ENT Exam: Mucous Membranes Moist, Normal Exam - Neck Exam Neck Exam: Full ROM, Normal Inspection. absent: Lymphadenopathy - Respiratory Exam Respiratory Exam: Decreased Breath Sounds - Cardiovascular Exam Cardiovascular Exam: REGULAR RHYTHM, +S1, +S2 - GI/Abdominal Exam GI & Abdominal Exam: Soft, Diminished Bowel Sounds - Rectal Exam Rectal Exam: Deferred
[2018-06-16] MEDS ORDERED: (Novolin R) Insulin Human Regular 100 units/ml vial SC ONE (21:58)
--- NOTE | 2018-06-16 23:03 | CP.PCM.PN ---
Subjective - Date & Time of Evaluation Date of Evaluation: 06/16/18 Time of Evaluation: 19:00 - Subjective Subjective: Pulmonology Consult- shortness of breath The patient was Seen/interviewed and examined by me at the bedside, Medical records reviewed and Management issues were discussed and formulated with the house staff. Events reviewed 52 year old female with pmh asthma, CAD, CABG s/p multiple stents consulted for SOB. Initially Presented to ED for chest pain. Pain woke patient from sleep, described as squeezing. pmh- HTN, hypercholesterolemia, DM, TIA, sleep apnea, CKD psh- CABGx4 in 2008, stents x9, cholecystectomy medications- gabapentin 300mg bid, furosemide 40mg daily, Plavix 75mg daily, ASA 81mg daily, Ranexa 1000mg bid, protonix 40mg daily, metoprolol 100mg daily, meclizine 12.5mg daily, loratidine 10mg daily allergies- iodine, latex, seafood (rash) CXR 06/14 no acute effusions, infiltrates, or pneumothorax NSTEMI CAD Shortness of breath likely secondary to cardiogenic etiology PCI with Dr. Clay at [facility] today Continue Medical management Optimize fluid status PRN Albuterol/Ipratropium INH RQ4 Continue VTE prophylaxis PFT and sleep studies as outpatient Objective - Vital Signs/Intake and Output Vital Signs (last 24 hours): Temp Pulse Resp BP Pulse Ox 98.0 F 74 20 123/68 96 06/16/18 22:13 06/16/18 19:49 06/16/18 19:39 06/16/18 19:39 06/16/18 19:39 Intake and Output: 06/16/18 06/17/18 18:59 06:59 Intake Total 500 Balance 500 - Medications Medications: Current Medications Acetaminophen (Tylenol 325mg Tab) 650 mg PO Q6 PRN PRN Reason: Pain, moderate (4-7) Last Admin: 06/16/18 22:13 Dose: 650 mg Aspirin (Aspirin) 325 mg PO DAILY [facility] Last Admin: 06/16/18 09:16 Dose: 325 mg Clopidogrel Bisulfate (Plavix) 75 mg PO DAILY [facility] Last Admin: 06/16/18 09:16 Dose: 75 mg Dextrose (Dextrose 50% Inj) 0 ml IV STAT PRN; Protocol PRN Reason: Hypoglycemia Protocol Dextrose (Glutose 15) 0 gm PO ONCE PRN; Protocol PRN Reason: Hypoglycemia Protocol Famotidine (Pepcid) 20 mg PO DAILY [facility] Last Admin: 06/16/18 09:20 Dose: Not Given Furosemide (Lasix) 40 mg PO DAILY [facility] Last Admin: 06/16/18 09:16 Dose: 40 mg Gabapentin (Neurontin) 300 mg PO BID [facility] Last Admin: 06/16/18 18:55 Dose: Not Given Glucagon (Glucagen Diagnostic Kit) 0 mg IM STAT PRN; Protocol PRN Reason: Hypoglycemia Protocol Dextrose (Dextrose 5% In Water 1000 Ml) 1,000 mls @ 0 mls/hr IV .Q0M PRN; Protocol PRN Reason: Hypoglycemia Protocol Insulin Human Regular (Novolin R) 0 unit SC ACHS [facility]; Protocol Last Admin: 06/16/18 21:42 Dose: 4 unit Loratadine (Claritin) 10 mg PO DAILY [facility] Last Admin: 06/16/18 09:20 Dose: Not Given Meclizine HCl (Antivert) 12.5 mg PO BID PRN PRN Reason: Dizziness Metoprolol Succinate (Toprol Xl) 100 mg PO DAILY [facility] Last Admin: 06/16/18 09:16 Dose: 100 mg Ranolazine (Ranexa) 1,000 mg PO BID [facility] Last Admin: 06/16/18 18:55 Dose: Not Given - Labs Labs: 06/15/18 07:17 06/15/18 07:17 PT 11.0 SECONDS (9.7-12.2) 06/14/18 04:53 INR 1.0 06/14/18 04:53 APTT 27 SECONDS (21-34) 06/14/18 04:53
[2018-06-17] MEDS ORDERED: (Novolin R) Insulin Human Regular 100 units/ml vial SC ONE ×2 (00:46→05:39)
[2018-06-17] MEDS: (Novolin R) Insulin Human Regular 100 units/ml vial SC SCH ×4 (08:34→21:25)
[2018-06-17] MEDS: Ranolazine 500 mg Extended Release Tablets PO SCH ×2 (10:13→17:14)
[2018-06-17] MEDS: Metoprolol Succinate 100 mg XL Tab PO SCH (10:13)
[2018-06-17] MEDS ORDERED: Dextrose 50% SYRINGE Inj (50 ml) IV PRN (11:13)
[2018-06-17] MEDS ORDERED: Glucagon Recombinant 1 mg Inj IM PRN (11:13)
[2018-06-17] MEDS ORDERED: (Lantus) Insulin Glargine, Recombinant SC STA (11:23)
[2018-06-17 11:42] LABS: HEMOGLOBIN 12.7 g/dL (11.0-16.0); LYMPH # 0.9 K/uL (1.0-4.3); LYMPH % 9.7 % (20.0-40.0); MEAN CELL VOLUME 96.3 fL (81.0-99.0); MEAN CORPUSCULAR HEMOGLOBIN 32.8 pg (27.0-31.0); MEAN CORPUSCULAR HGB CONC 34.1 g/dL (33.0-37.0); MEAN PLATELET VOLUME 10.8 fL (7.2-11.7); MONO # 0.4 K/uL (0.0-0.8); MONO % 4.7 % (0.0-10.0); NEUT % 85.6 % (50.0-75.0); PLATELET COUNT 168 K/uL (130-400); RBC 3.87 Mil/uL (3.80-5.20)
[2018-06-17 11:46] LABS: WHITE BLOOD COUNT 9.4 K/uL (4.8-10.8)
[2018-06-17] MEDS: Nitroglycerin 2% Ointment Foilpak UD TOP SCH ×2 (11:52→17:15)
[2018-06-17 12:04] LABS: BANDS 2 % (0-2); LYMPHOCYTE 5 % (20-40); MONOCYTE 2 % (0-10); NEUTROPHIL 91 % (50-75); PLATELET ESTIMATE NORMAL (NORMAL); TOTAL CELLS COUNTED 100
[2018-06-17 12:18] LABS: ALB/GLOB RATIO 1.3 (1.0-2.1); ALBUMIN 4.3 g/dL (3.5-5.0); ALT/SGPT 55 U/L (9-52); AST/SGOT 42 U/L (14-36); BLOOD UREA NITROGEN 30 mg/dL (7-17); GFR NON-AFRICAN AMERICAN > 60
--- NOTE | 2018-06-17 17:58 | CP.PCM.PN ---
Subjective - Date & Time of Evaluation Date of Evaluation: 06/17/18 Time of Evaluation: 17:50 - Subjective Subjective: patient had an episode of chest pain. She describes headache and body pain. Objective - Vital Signs/Intake and Output Vital Signs (last 24 hours): Temp Pulse Resp BP Pulse Ox 97.4 F L 70 20 122/69 99 06/17/18 15:00 06/17/18 15:00 06/17/18 15:00 06/17/18 15:00 06/17/18 15:00 Intake and Output: 06/17/18 06/17/18 06:59 18:59 Intake Total 500 Balance 500 - Medications Medications: Current Medications Acetaminophen (Tylenol 325mg Tab) 650 mg PO Q6 PRN PRN Reason: Pain, moderate (4-7) Last Admin: 06/17/18 15:46 Dose: 650 mg Aspirin (Aspirin) 325 mg PO DAILY [facility] Last Admin: 06/17/18 10:13 Dose: 325 mg Clopidogrel Bisulfate (Plavix) 75 mg PO DAILY [facility] Last Admin: 06/17/18 10:13 Dose: 75 mg Dextrose (Dextrose 50% Inj) 0 ml IV STAT PRN; Protocol PRN Reason: Hypoglycemia Protocol Dextrose (Glutose 15) 0 gm PO ONCE PRN; Protocol PRN Reason: Hypoglycemia Protocol Famotidine (Pepcid) 20 mg PO DAILY [facility] Last Admin: 06/17/18 10:13 Dose: 20 mg Furosemide (Lasix) 40 mg PO DAILY [facility] Last Admin: 06/17/18 10:13 Dose: 40 mg Gabapentin (Neurontin) 300 mg PO BID [facility] Last Admin: 06/17/18 17:15 Dose: 300 mg Glucagon (Glucagen Diagnostic Kit) 0 mg IM STAT PRN; Protocol PRN Reason: Hypoglycemia Protocol Dextrose (Dextrose 5% In Water 1000 Ml) 1,000 mls @ 0 mls/hr IV .Q0M PRN; Protocol PRN Reason: Hypoglycemia Protocol Insulin Glargine (Lantus) 10 unit SC HS [facility] Insulin Human Regular (Novolin R) 0 unit SC ACHS [facility]; Protocol Last Admin: 06/17/18 17:15 Dose: 12 units Loratadine (Claritin) 10 mg PO DAILY [facility] Last Admin: 06/17/18 10:13 Dose: 10 mg Meclizine HCl (Antivert) 12.5 mg PO BID PRN PRN Reason: Dizziness Metoprolol Succinate (Toprol Xl) 100 mg PO DAILY [facility] Last Admin: 06/17/18 10:13 Dose: 100 mg Nitroglycerin (Nitro-Bid 2% Oint) 1 ea TOP Q6 [facility] Last Admin: 06/17/18 17:15 Dose: 1 ea Ranolazine (Ranexa) 1,000 mg PO BID [facility] Last Admin: 06/17/18 17:14 Dose: 1,000 mg - Labs Labs: 06/17/18 11:26 06/17/18 11:26 PT 11.0 SECONDS (9.7-12.2) 06/14/18 04:53 INR 1.0 06/14/18 04:53 APTT 27 SECONDS (21-34) 06/14/18 04:53 - Constitutional Appears: Non-toxic - Head Exam Head Exam: NORMAL INSPECTION - Eye Exam Eye Exam: Normal appearance - ENT Exam ENT Exam: Mucous Membranes Moist - Neck Exam Neck Exam: Full ROM - Respiratory Exam Respiratory Exam: NORMAL BREATHING PATTERN - Cardiovascular Exam Cardiovascular Exam: REGULAR RHYTHM - GI/Abdominal Exam GI & Abdominal Exam: Normal Bowel Sounds - Rectal Exam Rectal Exam: Deferred - Extremities Exam Extremities Exam: absent: Pedal Edema - Back Exam Back Exam: NORMAL INSPECTION - Neurological Exam Neurological Exam: Alert - Psychiatric Exam Psychiatric exam: Normal Affect - Skin Skin Exam: Normal Color Assessment and Plan (1) NSTEMI (non-ST elevated myocardial infarction) Assessment & Plan: s/p angioplasty of SVG to RPDA. medical therapy with antiplatelet, Ranexa Status: Acute (2) CAD (coronary artery disease) Assessment & Plan: s/p PTCA SVG to RPDA. medical therapy Status: Acute (3) HTN (hypertension) Assessment & Plan: blood pressure control Status: Acute (4) Hypercholesteremia Assessment & Plan: statin therapy Status: Acute
--- NOTE | 2018-06-17 18:17 | CARD ---
APPROVED REPORT Date of service: 06/17/2018 EKG Measurement Heart [id number] <Conclusion> Normal sinus rhythm T wave abnormality, consider lateral ischemia Abnormal ECG
--- NOTE | 2018-06-17 21:35 | CP.PCM.PN ---
Subjective - Date & Time of Evaluation Date of Evaluation: 06/17/18 Time of Evaluation: 10:00 - Subjective Subjective: clinically same Objective - Vital Signs/Intake and Output Vital Signs (last 24 hours): Temp Pulse Resp BP Pulse Ox 97.4 F L 70 20 122/69 99 06/17/18 15:00 06/17/18 15:00 06/17/18 15:00 06/17/18 15:00 06/17/18 15:00 - Medications Medications: Current Medications Acetaminophen (Tylenol 325mg Tab) 650 mg PO Q6 PRN PRN Reason: Pain, moderate (4-7) Last Admin: 06/17/18 21:28 Dose: 650 mg Aspirin (Aspirin) 325 mg PO DAILY [facility] Last Admin: 06/17/18 10:13 Dose: 325 mg Clopidogrel Bisulfate (Plavix) 75 mg PO DAILY [facility] Last Admin: 06/17/18 10:13 Dose: 75 mg Dextrose (Dextrose 50% Inj) 0 ml IV STAT PRN; Protocol PRN Reason: Hypoglycemia Protocol Dextrose (Glutose 15) 0 gm PO ONCE PRN; Protocol PRN Reason: Hypoglycemia Protocol Famotidine (Pepcid) 20 mg PO DAILY [facility] Last Admin: 06/17/18 10:13 Dose: 20 mg Furosemide (Lasix) 40 mg PO DAILY [facility] Last Admin: 06/17/18 10:13 Dose: 40 mg Gabapentin (Neurontin) 300 mg PO BID [facility] Last Admin: 06/17/18 17:15 Dose: 300 mg Glucagon (Glucagen Diagnostic Kit) 0 mg IM STAT PRN; Protocol PRN Reason: Hypoglycemia Protocol Dextrose (Dextrose 5% In Water 1000 Ml) 1,000 mls @ 0 mls/hr IV .Q0M PRN; Protocol PRN Reason: Hypoglycemia Protocol Insulin Glargine (Lantus) 10 unit SC HS [facility] Insulin Human Regular (Novolin R) 0 unit SC ACHS [facility]; Protocol Last Admin: 06/17/18 21:25 Dose: 2 units Loratadine (Claritin) 10 mg PO DAILY [facility] Last Admin: 06/17/18 10:13 Dose: 10 mg Meclizine HCl (Antivert) 12.5 mg PO BID PRN PRN Reason: Dizziness Metoprolol Succinate (Toprol Xl) 100 mg PO DAILY [facility] Last Admin: 06/17/18 10:13 Dose: 100 mg Nitroglycerin (Nitro-Bid 2% Oint) 1 ea TOP Q6 [facility] Last Admin: 06/17/18 17:15 Dose: 1 ea Ranolazine (Ranexa) 1,000 mg PO BID [facility] Last Admin: 06/17/18 17:14 Dose: 1,000 mg - Labs Labs: 06/17/18 11:26 06/17/18 11:26 PT 11.0 SECONDS (9.7-12.2) 06/14/18 04:53 INR 1.0 06/14/18 04:53 APTT 27 SECONDS (21-34) 06/14/18 04:53 - Constitutional Appears: Well - Head Exam Head Exam: ATRAUMATIC, NORMAL INSPECTION, NORMOCEPHALIC - Eye Exam Eye Exam: EOMI, Normal appearance, PERRL Pupil Exam: NORMAL ACCOMODATION, PERRL - ENT Exam ENT Exam: Mucous Membranes Moist, Normal Exam - Neck Exam Neck Exam: Full ROM, Normal Inspection. absent: Lymphadenopathy - Respiratory Exam Respiratory Exam: Decreased Breath Sounds - Cardiovascular Exam Cardiovascular Exam: REGULAR RHYTHM, +S1, +S2 - GI/Abdominal Exam GI & Abdominal Exam: Soft, Diminished Bowel Sounds - Rectal Exam Rectal Exam: Deferred
[2018-06-18] MEDS: Nitroglycerin 2% Ointment Foilpak UD TOP SCH ×4 (00:17→17:36)
[2018-06-18] MEDS: (Novolin R) Insulin Human Regular 100 units/ml vial SC SCH ×4 (08:23→21:27)
[2018-06-18] MEDS: Metoprolol Succinate 100 mg XL Tab PO SCH (09:14)
[2018-06-18] MEDS: Ranolazine 500 mg Extended Release Tablets PO SCH ×2 (09:15→17:36)
--- NOTE | 2018-06-18 12:08 | CP.PCM.PN ---
Subjective - Date & Time of Evaluation Date of Evaluation: 06/18/18 Time of Evaluation: 11:30 - Subjective Subjective: patient has no chest pain Objective - Vital Signs/Intake and Output Vital Signs (last 24 hours): Temp Pulse Resp BP Pulse Ox 98 F 64 20 114/75 94 L 06/18/18 07:00 06/18/18 07:30 06/18/18 07:00 06/18/18 09:14 06/18/18 07:00 Intake and Output: 06/18/18 06/18/18 06:59 18:59 Intake Total 620 Balance 620 - Medications Medications: Current Medications Acetaminophen (Tylenol 325mg Tab) 650 mg PO Q6 PRN PRN Reason: Pain, moderate (4-7) Last Admin: 06/18/18 06:24 Dose: 650 mg Aspirin (Aspirin) 325 mg PO DAILY [facility] Last Admin: 06/18/18 09:15 Dose: 325 mg Clopidogrel Bisulfate (Plavix) 75 mg PO DAILY [facility] Last Admin: 06/18/18 09:14 Dose: 75 mg Dextrose (Dextrose 50% Inj) 0 ml IV STAT PRN; Protocol PRN Reason: Hypoglycemia Protocol Dextrose (Glutose 15) 0 gm PO ONCE PRN; Protocol PRN Reason: Hypoglycemia Protocol Famotidine (Pepcid) 20 mg PO DAILY [facility] Last Admin: 06/18/18 09:14 Dose: 20 mg Furosemide (Lasix) 40 mg PO DAILY [facility] Last Admin: 06/18/18 09:14 Dose: 40 mg Gabapentin (Neurontin) 300 mg PO BID [facility] Last Admin: 06/18/18 09:14 Dose: 300 mg Glucagon (Glucagen Diagnostic Kit) 0 mg IM STAT PRN; Protocol PRN Reason: Hypoglycemia Protocol Dextrose (Dextrose 5% In Water 1000 Ml) 1,000 mls @ 0 mls/hr IV .Q0M PRN; Protocol PRN Reason: Hypoglycemia Protocol Insulin Glargine (Lantus) 10 unit SC HS [facility] Insulin Human Regular (Novolin R) 0 unit SC ACHS [facility]; Protocol Last Admin: 06/18/18 11:49 Dose: 12 units Loratadine (Claritin) 10 mg PO DAILY [facility] Last Admin: 06/18/18 09:14 Dose: 10 mg Meclizine HCl (Antivert) 12.5 mg PO BID PRN PRN Reason: Dizziness Metformin HCl (Glucophage) 500 mg PO BID [facility] Metoprolol Succinate (Toprol Xl) 100 mg PO DAILY [facility] Last Admin: 06/18/18 09:14 Dose: 100 mg Nitroglycerin (Nitro-Bid 2% Oint) 1 ea TOP Q6 [facility] Last Admin: 06/18/18 06:24 Dose: 1 ea Ranolazine (Ranexa) 1,000 mg PO BID [facility] Last Admin: 06/18/18 09:15 Dose: 1,000 mg Sitagliptin Phosphate (Januvia) 50 mg PO DAILY [facility] Last Admin: 06/18/18 11:49 Dose: 50 mg - Labs Labs: 06/17/18 11:26 06/17/18 11:26 PT 11.0 SECONDS (9.7-12.2) 06/14/18 04:53 INR 1.0 06/14/18 04:53 APTT 27 SECONDS (21-34) 06/14/18 04:53 - Constitutional Appears: Non-toxic - Head Exam Head Exam: NORMAL INSPECTION - Eye Exam Eye Exam: Normal appearance - ENT Exam ENT Exam: Mucous Membranes Moist - Neck Exam Neck Exam: Full ROM - Respiratory Exam Respiratory Exam: NORMAL BREATHING PATTERN - Cardiovascular Exam Cardiovascular Exam: REGULAR RHYTHM - GI/Abdominal Exam GI & Abdominal Exam: Normal Bowel Sounds - Rectal Exam Rectal Exam: Deferred - Extremities Exam Extremities Exam: Full ROM, Normal Capillary Refill, Normal Inspection. absent: Pedal Edema, Tenderness - Back Exam Back Exam: NORMAL INSPECTION - Neurological Exam Neurological Exam: Alert - Psychiatric Exam Psychiatric exam: Normal Affect - Skin Skin Exam: Normal Color Assessment and Plan (1) NSTEMI (non-ST elevated myocardial infarction) Assessment & Plan: s/p angioplasty SVG to RPDA. medical therapy Status: Acute (2) CAD (coronary artery disease) Assessment & Plan: ASA/Plavix Status: Acute (3) HTN (hypertension) Assessment & Plan: blood pressure control Status: Acute (4) Hypercholesteremia Assessment & Plan: aggressive statin therapy Status: Acute
[2018-06-18] MEDS: (Lantus) Insulin Glargine, Recombinant SC SCH (21:28)
--- NOTE | 2018-06-18 22:22 | CP.PCM.PN ---
Subjective - Date & Time of Evaluation Date of Evaluation: 06/18/18 Time of Evaluation: 09:15 - Subjective Subjective: clinically same Objective - Vital Signs/Intake and Output Vital Signs (last 24 hours): Temp Pulse Resp BP Pulse Ox 97.6 F 64 20 114/66 97 06/18/18 15:07 06/18/18 20:00 06/18/18 15:07 06/18/18 15:07 06/18/18 15:07 Intake and Output: 06/18/18 06/19/18 18:59 06:59 Intake Total 250 Balance 250 - Medications Medications: Current Medications Acetaminophen (Tylenol 325mg Tab) 650 mg PO Q6 PRN PRN Reason: Pain, moderate (4-7) Last Admin: 06/18/18 18:39 Dose: 650 mg Aspirin (Aspirin) 325 mg PO DAILY [facility] Last Admin: 06/18/18 09:15 Dose: 325 mg Clopidogrel Bisulfate (Plavix) 75 mg PO DAILY [facility] Last Admin: 06/18/18 09:14 Dose: 75 mg Dextrose (Dextrose 50% Inj) 0 ml IV STAT PRN; Protocol PRN Reason: Hypoglycemia Protocol Dextrose (Glutose 15) 0 gm PO ONCE PRN; Protocol PRN Reason: Hypoglycemia Protocol Famotidine (Pepcid) 20 mg PO DAILY [facility] Last Admin: 06/18/18 09:14 Dose: 20 mg Furosemide (Lasix) 40 mg PO DAILY [facility] Last Admin: 06/18/18 09:14 Dose: 40 mg Gabapentin (Neurontin) 300 mg PO BID [facility] Last Admin: 06/18/18 17:36 Dose: 300 mg Glucagon (Glucagen Diagnostic Kit) 0 mg IM STAT PRN; Protocol PRN Reason: Hypoglycemia Protocol Dextrose (Dextrose 5% In Water 1000 Ml) 1,000 mls @ 0 mls/hr IV .Q0M PRN; Protocol PRN Reason: Hypoglycemia Protocol Insulin Glargine (Lantus) 10 unit SC HS [facility] Last Admin: 06/18/18 21:28 Dose: 10 units Insulin Human Regular (Novolin R) 0 unit SC ACHS [facility]; Protocol Last Admin: 06/18/18 21:27 Dose: Not Given Loratadine (Claritin) 10 mg PO DAILY [facility] Last Admin: 06/18/18 09:14 Dose: 10 mg Meclizine HCl (Antivert) 12.5 mg PO BID PRN PRN Reason: Dizziness Metformin HCl (Glucophage) 500 mg PO BID [facility] Last Admin: 06/18/18 17:36 Dose: 500 mg Metoprolol Succinate (Toprol Xl) 100 mg PO DAILY [facility] Last Admin: 06/18/18 09:14 Dose: 100 mg Nitroglycerin (Nitro-Bid 2% Oint) 1 ea TOP Q6 [facility] Last Admin: 06/18/18 17:36 Dose: 1 ea Ranolazine (Ranexa) 1,000 mg PO BID [facility] Last Admin: 06/18/18 17:36 Dose: 1,000 mg Sitagliptin Phosphate (Januvia) 50 mg PO DAILY [facility] Last Admin: 06/18/18 11:49 Dose: 50 mg - Labs Labs: 06/17/18 11:26 06/17/18 11:26 PT 11.0 SECONDS (9.7-12.2) 06/14/18 04:53 INR 1.0 06/14/18 04:53 APTT 27 SECONDS (21-34) 06/14/18 04:53 - Constitutional Appears: Well - Head Exam Head Exam: ATRAUMATIC, NORMAL INSPECTION, NORMOCEPHALIC - Eye Exam Eye Exam: EOMI, Normal appearance, PERRL Pupil Exam: NORMAL ACCOMODATION, PERRL - ENT Exam ENT Exam: Mucous Membranes Moist, Normal Exam - Neck Exam Neck Exam: Full ROM, Normal Inspection. absent: Lymphadenopathy - Respiratory Exam Respiratory Exam: Decreased Breath Sounds - Cardiovascular Exam Cardiovascular Exam: REGULAR RHYTHM, +S1, +S2 - GI/Abdominal Exam GI & Abdominal Exam: Soft, Diminished Bowel Sounds - Rectal Exam Rectal Exam: Deferred
[2018-06-19] MEDS: Nitroglycerin 2% Ointment Foilpak UD TOP SCH ×4 (00:13→17:59)
[2018-06-19] MEDS: (Novolin R) Insulin Human Regular 100 units/ml vial SC SCH ×4 (08:04→21:41)
[2018-06-19] MEDS: Metoprolol Succinate 100 mg XL Tab PO SCH (09:29)
[2018-06-19] MEDS: Ranolazine 500 mg Extended Release Tablets PO SCH ×2 (09:33→17:57)
[2018-06-19] MEDS: Cefepime 1 GM in Sodium Chloride 0.9% 100 ML IVPB SCH ×2 (11:31→22:30)
--- NOTE | 2018-06-19 19:33 | CP.PCM.PN ---
Subjective - Date & Time of Evaluation Date of Evaluation: 06/19/18 Time of Evaluation: 10:30 - Subjective Subjective: clinically same Objective - Vital Signs/Intake and Output Vital Signs (last 24 hours): Temp Pulse Resp BP Pulse Ox 97.8 F 65 20 91/60 L 97 06/19/18 15:05 06/19/18 15:56 06/19/18 15:05 06/19/18 15:05 06/19/18 15:05 - Medications Medications: Current Medications Acetaminophen (Tylenol 325mg Tab) 650 mg PO Q6 PRN PRN Reason: Pain, moderate (4-7) Last Admin: 06/19/18 18:09 Dose: 650 mg Aspirin (Aspirin Chewable) 81 mg PO DAILY [facility] Clopidogrel Bisulfate (Plavix) 75 mg PO DAILY [facility] Last Admin: 06/19/18 09:29 Dose: 75 mg Dextrose (Dextrose 50% Inj) 0 ml IV STAT PRN; Protocol PRN Reason: Hypoglycemia Protocol Dextrose (Glutose 15) 0 gm PO ONCE PRN; Protocol PRN Reason: Hypoglycemia Protocol Enoxaparin Sodium (Lovenox) 40 mg SC DAILY [facility] Famotidine (Pepcid) 20 mg PO DAILY [facility] Last Admin: 06/19/18 09:29 Dose: 20 mg Furosemide (Lasix) 40 mg PO DAILY [facility] Last Admin: 06/19/18 09:29 Dose: 40 mg Gabapentin (Neurontin) 300 mg PO BID [facility] Last Admin: 06/19/18 18:09 Dose: 300 mg Glucagon (Glucagen Diagnostic Kit) 0 mg IM STAT PRN; Protocol PRN Reason: Hypoglycemia Protocol Dextrose (Dextrose 5% In Water 1000 Ml) 1,000 mls @ 0 mls/hr IV .Q0M PRN; Protocol PRN Reason: Hypoglycemia Protocol Cefepime HCl 1 gm/ Sodium (Chloride) 100 mls @ 100 mls/hr IVPB Q12H [facility]; Protocol Last Admin: 06/19/18 11:31 Dose: 100 mls/hr Insulin Glargine (Lantus) 10 unit SC HS [facility] Last Admin: 06/18/18 21:28 Dose: 10 units Insulin Human Regular (Novolin R) 0 unit SC ACHS [facility]; Protocol Last Admin: 06/19/18 17:58 Dose: 10 units Loratadine (Claritin) 10 mg PO DAILY [facility] Last Admin: 06/19/18 09:29 Dose: 10 mg Meclizine HCl (Antivert) 12.5 mg PO BID PRN PRN Reason: Dizziness Metformin HCl (Glucophage) 500 mg PO BID [facility] Last Admin: 06/19/18 09:30 Dose: 500 mg Metoprolol Succinate (Toprol Xl) 100 mg PO DAILY [facility] Last Admin: 06/19/18 09:29 Dose: 100 mg Nitroglycerin (Nitro-Bid 2% Oint) 1 ea TOP Q6 [facility] Last Admin: 06/19/18 17:59 Dose: Not Given Ranolazine (Ranexa) 1,000 mg PO BID [facility] Last Admin: 06/19/18 17:57 Dose: 1,000 mg Sitagliptin Phosphate (Januvia) 50 mg PO DAILY [facility] Last Admin: 06/19/18 09:29 Dose: 50 mg - Labs Labs: 06/17/18 11:26 06/17/18 11:26 PT 11.0 SECONDS (9.7-12.2) 06/14/18 04:53 INR 1.0 06/14/18 04:53 APTT 27 SECONDS (21-34) 06/14/18 04:53 - Constitutional Appears: Well - Head Exam Head Exam: ATRAUMATIC, NORMAL INSPECTION, NORMOCEPHALIC - Eye Exam Eye Exam: EOMI, Normal appearance, PERRL Pupil Exam: NORMAL ACCOMODATION, PERRL - ENT Exam ENT Exam: Mucous Membranes Moist, Normal Exam - Neck Exam Neck Exam: Full ROM, Normal Inspection. absent: Lymphadenopathy - Respiratory Exam Respiratory Exam: Decreased Breath Sounds - Cardiovascular Exam Cardiovascular Exam: REGULAR RHYTHM, +S1, +S2 - GI/Abdominal Exam GI & Abdominal Exam: Soft, Diminished Bowel Sounds - Rectal Exam Rectal Exam: Deferred
[2018-06-19] MEDS: (Lantus) Insulin Glargine, Recombinant SC SCH (21:40)
[2018-06-20] MEDS: Nitroglycerin 2% Ointment Foilpak UD TOP SCH ×5 (00:03→23:42)
[2018-06-20] MEDS: (Novolin R) Insulin Human Regular 100 units/ml vial SC SCH ×4 (08:16→21:49)
[2018-06-20] MEDS: Metoprolol Succinate 100 mg XL Tab PO SCH (09:40)
[2018-06-20] MEDS: Ranolazine 500 mg Extended Release Tablets PO SCH ×2 (09:40→18:00)
[2018-06-20] MEDS: Enoxaparin 40 mg Syringe SC SCH (09:42)
--- NOTE | 2018-06-20 10:47 | CP.PCM.PN ---
Subjective - Date & Time of Evaluation Date of Evaluation: 06/20/18 Time of Evaluation: 10:00 - Subjective Subjective: patient denies current chest pain or dsypnea Objective - Vital Signs/Intake and Output Vital Signs (last 24 hours): Temp Pulse Resp BP Pulse Ox 97.7 F 56 L 20 110/58 L 96 06/20/18 07:00 06/20/18 07:30 06/20/18 07:00 06/20/18 09:40 06/20/18 07:00 Intake and Output: 06/20/18 06/20/18 06:59 18:59 Intake Total 250 Balance 250 - Medications Medications: Current Medications Acetaminophen (Tylenol 325mg Tab) 650 mg PO Q6 PRN PRN Reason: Pain, moderate (4-7) Last Admin: 06/20/18 09:38 Dose: 650 mg Aspirin (Aspirin Chewable) 81 mg PO DAILY [facility] Last Admin: 06/20/18 09:39 Dose: 81 mg Clopidogrel Bisulfate (Plavix) 75 mg PO DAILY [facility] Last Admin: 06/20/18 09:39 Dose: 75 mg Dextrose (Dextrose 50% Inj) 0 ml IV STAT PRN; Protocol PRN Reason: Hypoglycemia Protocol Dextrose (Glutose 15) 0 gm PO ONCE PRN; Protocol PRN Reason: Hypoglycemia Protocol Enoxaparin Sodium (Lovenox) 40 mg SC DAILY [facility] Last Admin: 06/20/18 09:42 Dose: 40 mg Famotidine (Pepcid) 20 mg PO DAILY [facility] Last Admin: 06/20/18 09:39 Dose: 20 mg Furosemide (Lasix) 40 mg PO DAILY [facility] Last Admin: 06/20/18 09:40 Dose: Not Given Gabapentin (Neurontin) 300 mg PO BID [facility] Last Admin: 06/20/18 09:39 Dose: 300 mg Glucagon (Glucagen Diagnostic Kit) 0 mg IM STAT PRN; Protocol PRN Reason: Hypoglycemia Protocol Dextrose (Dextrose 5% In Water 1000 Ml) 1,000 mls @ 0 mls/hr IV .Q0M PRN; Protocol PRN Reason: Hypoglycemia Protocol Cefepime HCl 1 gm/ Sodium (Chloride) 100 mls @ 100 mls/hr IVPB Q12H [facility]; Protocol Last Admin: 06/19/18 22:30 Dose: 100 mls/hr Insulin Glargine (Lantus) 10 unit SC HS [facility] Last Admin: 06/19/18 21:40 Dose: 10 units Insulin Human Regular (Novolin R) 0 unit SC ACHS [facility]; Protocol Last Admin: 06/20/18 08:16 Dose: 6 units Loratadine (Claritin) 10 mg PO DAILY [facility] Last Admin: 06/20/18 09:39 Dose: 10 mg Meclizine HCl (Antivert) 12.5 mg PO BID PRN PRN Reason: Dizziness Metformin HCl (Glucophage) 1,000 mg PO BIDCC [facility] Last Admin: 06/20/18 10:43 Dose: Not Given Metoprolol Succinate (Toprol Xl) 100 mg PO DAILY [facility] Last Admin: 06/20/18 09:40 Dose: Not Given Nitroglycerin (Nitro-Bid 2% Oint) 1 ea TOP Q6 [facility] Last Admin: 06/20/18 05:44 Dose: 1 ea Ranolazine (Ranexa) 1,000 mg PO BID [facility] Last Admin: 06/20/18 09:40 Dose: 1,000 mg Sitagliptin Phosphate (Januvia) 50 mg PO DAILY [facility] Last Admin: 06/20/18 09:39 Dose: 50 mg - Labs Labs: 06/17/18 11:26 06/17/18 11:26 PT 11.0 SECONDS (9.7-12.2) 06/14/18 04:53 INR 1.0 06/14/18 04:53 APTT 27 SECONDS (21-34) 06/14/18 04:53 - Constitutional Appears: Non-toxic - Head Exam Head Exam: NORMAL INSPECTION - Eye Exam Eye Exam: Normal appearance - ENT Exam ENT Exam: Mucous Membranes Moist, Normal Exam - Neck Exam Neck Exam: Full ROM, Normal Inspection - Respiratory Exam Respiratory Exam: Clear to Ausculation Bilateral, NORMAL BREATHING PATTERN - Cardiovascular Exam Cardiovascular Exam: REGULAR RHYTHM - GI/Abdominal Exam GI & Abdominal Exam: Normal Bowel Sounds - Rectal Exam Rectal Exam: Deferred - Extremities Exam Extremities Exam: Normal Inspection. absent: Pedal Edema - Back Exam Back Exam: NORMAL INSPECTION - Neurological Exam Neurological Exam: Alert - Psychiatric Exam Psychiatric exam: Normal Affect - Skin Skin Exam: Normal Color Assessment and Plan (1) CAD (coronary artery disease) Assessment & Plan: s/p PTCA SVG to RCA. doing well maintain antiplatelet therapy Status: Acute (2) HTN (hypertension) Assessment & Plan: blood pressure control Status: Acute (3) Hypercholesteremia Assessment & Plan: statin therapy Status: Acute
[2018-06-20] MEDS: Cefepime 1 GM in Sodium Chloride 0.9% 100 ML IVPB SCH ×2 (11:18→22:36)
--- NOTE | 2018-06-20 12:25 | CP.PCM.PN ---
Subjective - Date & Time of Evaluation Date of Evaluation: 06/20/18 Time of Evaluation: 11:00 - Subjective Subjective: clinically same Objective - Vital Signs/Intake and Output Vital Signs (last 24 hours): Temp Pulse Resp BP Pulse Ox 97.7 F 66 20 110/58 L 96 06/20/18 07:00 06/20/18 11:14 06/20/18 07:00 06/20/18 09:40 06/20/18 07:00 Intake and Output: 06/20/18 06/20/18 06:59 18:59 Intake Total 250 Balance 250 - Medications Medications: Current Medications Acetaminophen (Tylenol 325mg Tab) 650 mg PO Q6 PRN PRN Reason: Pain, moderate (4-7) Last Admin: 06/20/18 09:38 Dose: 650 mg Aspirin (Aspirin Chewable) 81 mg PO DAILY [facility] Last Admin: 06/20/18 09:39 Dose: 81 mg Clopidogrel Bisulfate (Plavix) 75 mg PO DAILY [facility] Last Admin: 06/20/18 09:39 Dose: 75 mg Dextrose (Dextrose 50% Inj) 0 ml IV STAT PRN; Protocol PRN Reason: Hypoglycemia Protocol Dextrose (Glutose 15) 0 gm PO ONCE PRN; Protocol PRN Reason: Hypoglycemia Protocol Enoxaparin Sodium (Lovenox) 40 mg SC DAILY [facility] Last Admin: 06/20/18 09:42 Dose: 40 mg Famotidine (Pepcid) 20 mg PO DAILY [facility] Last Admin: 06/20/18 09:39 Dose: 20 mg Furosemide (Lasix) 40 mg PO DAILY [facility] Last Admin: 06/20/18 09:40 Dose: Not Given Gabapentin (Neurontin) 300 mg PO BID [facility] Last Admin: 06/20/18 09:39 Dose: 300 mg Glucagon (Glucagen Diagnostic Kit) 0 mg IM STAT PRN; Protocol PRN Reason: Hypoglycemia Protocol Cefepime HCl 1 gm/ Sodium (Chloride) 100 mls @ 100 mls/hr IVPB Q12H [facility]; Protocol Last Admin: 06/20/18 11:18 Dose: 100 mls/hr Insulin Glargine (Lantus) 20 unit SC HS [facility] Insulin Human Regular (Novolin R) 0 unit SC ACHS [facility]; Protocol Last Admin: 06/20/18 08:16 Dose: 6 units Loratadine (Claritin) 10 mg PO DAILY [facility] Last Admin: 06/20/18 09:39 Dose: 10 mg Meclizine HCl (Antivert) 12.5 mg PO BID PRN PRN Reason: Dizziness Metformin HCl (Glucophage) 1,000 mg PO BIDCC [facility] Last Admin: 06/20/18 10:43 Dose: Not Given Metoprolol Succinate (Toprol Xl) 100 mg PO DAILY [facility] Last Admin: 06/20/18 09:40 Dose: Not Given Nitroglycerin (Nitro-Bid 2% Oint) 1 ea TOP Q6 [facility] Last Admin: 06/20/18 05:44 Dose: 1 ea Ranolazine (Ranexa) 1,000 mg PO BID [facility] Last Admin: 06/20/18 09:40 Dose: 1,000 mg Sitagliptin Phosphate (Januvia) 50 mg PO DAILY [facility] Last Admin: 06/20/18 09:39 Dose: 50 mg - Labs Labs: 06/17/18 11:26 06/17/18 11:26 PT 11.0 SECONDS (9.7-12.2) 06/14/18 04:53 INR 1.0 06/14/18 04:53 APTT 27 SECONDS (21-34) 06/14/18 04:53 - Constitutional Appears: Well - Head Exam Head Exam: ATRAUMATIC, NORMAL INSPECTION, NORMOCEPHALIC - Eye Exam Eye Exam: EOMI, Normal appearance, PERRL Pupil Exam: NORMAL ACCOMODATION, PERRL - ENT Exam ENT Exam: Mucous Membranes Moist, Normal Exam - Neck Exam Neck Exam: Full ROM, Normal Inspection. absent: Lymphadenopathy - Respiratory Exam Respiratory Exam: Decreased Breath Sounds - Cardiovascular Exam Cardiovascular Exam: REGULAR RHYTHM, +S1, +S2 - GI/Abdominal Exam GI & Abdominal Exam: Soft, Diminished Bowel Sounds - Rectal Exam Rectal Exam: Deferred
[2018-06-20 13:59] LABS: BLOOD UREA NITROGEN 22 mg/dL (7-17); CALCIUM 8.7 mg/dl (8.6-10.4); GFR NON-AFRICAN AMERICAN > 60
[2018-06-20] MEDS: (Lantus) Insulin Glargine, Recombinant SC SCH (21:49)
[2018-06-21] MEDS: Nitroglycerin 2% Ointment Foilpak UD TOP SCH ×3 (05:32→17:33)
[2018-06-21] MEDS: (Novolin R) Insulin Human Regular 100 units/ml vial SC SCH ×4 (08:05→21:22)
[2018-06-21] MEDS: Metoprolol Succinate 100 mg XL Tab PO SCH (09:17)
[2018-06-21] MEDS: Enoxaparin 40 mg Syringe SC SCH (09:18)
[2018-06-21] MEDS: Ranolazine 500 mg Extended Release Tablets PO SCH ×2 (09:18→17:24)
[2018-06-21] MEDS: Cefepime 1 GM in Sodium Chloride 0.9% 100 ML IVPB SCH ×2 (11:17→22:55)
--- NOTE | 2018-06-21 16:02 | CP.PCM.PN ---
Subjective - Date & Time of Evaluation Date of Evaluation: 06/21/18 Time of Evaluation: 09:45 - Subjective Subjective: clinically same Objective - Vital Signs/Intake and Output Vital Signs (last 24 hours): Temp Pulse Resp BP Pulse Ox 98.1 F 66 18 120/61 98 06/21/18 07:55 06/21/18 11:46 06/21/18 07:55 06/21/18 09:18 06/21/18 07:55 Intake and Output: 06/21/18 06/21/18 06:59 18:59 Intake Total 300 Balance 300 - Medications Medications: Current Medications Acetaminophen (Tylenol 325mg Tab) 650 mg PO Q6 PRN PRN Reason: Pain, moderate (4-7) Last Admin: 06/21/18 02:31 Dose: 650 mg Aspirin (Aspirin Chewable) 81 mg PO DAILY [facility] Last Admin: 06/21/18 09:18 Dose: 81 mg Clopidogrel Bisulfate (Plavix) 75 mg PO DAILY [facility] Last Admin: 06/21/18 09:17 Dose: 75 mg Dextrose (Dextrose 50% Inj) 0 ml IV STAT PRN; Protocol PRN Reason: Hypoglycemia Protocol Dextrose (Glutose 15) 0 gm PO ONCE PRN; Protocol PRN Reason: Hypoglycemia Protocol Enoxaparin Sodium (Lovenox) 40 mg SC DAILY [facility] Last Admin: 06/21/18 09:18 Dose: 40 mg Famotidine (Pepcid) 20 mg PO DAILY [facility] Last Admin: 06/21/18 09:17 Dose: 20 mg Furosemide (Lasix) 40 mg PO DAILY [facility] Last Admin: 06/21/18 09:18 Dose: 40 mg Gabapentin (Neurontin) 300 mg PO BID [facility] Last Admin: 06/21/18 09:17 Dose: 300 mg Glucagon (Glucagen Diagnostic Kit) 0 mg IM STAT PRN; Protocol PRN Reason: Hypoglycemia Protocol Cefepime HCl 1 gm/ Sodium (Chloride) 100 mls @ 100 mls/hr IVPB Q12H [facility]; Protocol Last Admin: 06/21/18 11:17 Dose: 100 mls/hr Insulin Glargine (Lantus) 20 unit SC HS [facility] Last Admin: 06/20/18 21:49 Dose: 20 units Insulin Human Regular (Novolin R) 0 unit SC ACHS [facility]; Protocol Last Admin: 06/21/18 12:18 Dose: 8 units Loratadine (Claritin) 10 mg PO DAILY [facility] Last Admin: 06/21/18 09:17 Dose: 10 mg Meclizine HCl (Antivert) 12.5 mg PO BID PRN PRN Reason: Dizziness Metformin HCl (Glucophage) 1,000 mg PO BIDCC [facility] Last Admin: 06/21/18 08:04 Dose: 1,000 mg Metoprolol Succinate (Toprol Xl) 100 mg PO DAILY [facility] Last Admin: 06/21/18 09:17 Dose: 100 mg Nitroglycerin (Nitro-Bid 2% Oint) 1 ea TOP Q6 [facility] Last Admin: 06/21/18 12:18 Dose: Not Given Ranolazine (Ranexa) 1,000 mg PO BID [facility] Last Admin: 06/21/18 09:18 Dose: 1,000 mg Sitagliptin Phosphate (Januvia) 100 mg PO DAILY [facility] Last Admin: 06/21/18 09:18 Dose: 100 mg - Labs Labs: 06/17/18 11:26 06/20/18 13:36 PT 11.0 SECONDS (9.7-12.2) 06/14/18 04:53 INR 1.0 06/14/18 04:53 APTT 27 SECONDS (21-34) 06/14/18 04:53
[2018-06-21 18:18] VITALS: RESP 20
[2018-06-21] MEDS: (Lantus) Insulin Glargine, Recombinant SC SCH (21:47)
[2018-06-22] MEDS: Nitroglycerin 2% Ointment Foilpak UD TOP SCH ×3 (05:59→18:03)
[2018-06-22] MEDS: (Novolin R) Insulin Human Regular 100 units/ml vial SC SCH ×2 (08:51→16:41)
[2018-06-22] MEDS: Ranolazine 500 mg Extended Release Tablets PO SCH ×2 (10:47→17:40)
[2018-06-22] MEDS: Metoprolol Succinate 100 mg XL Tab PO SCH (10:47)
[2018-06-22] MEDS: Enoxaparin 40 mg Syringe SC SCH (10:48)
[2018-06-22] MEDS: Cefepime 1 GM in Sodium Chloride 0.9% 100 ML IVPB SCH (10:52)
[2018-06-22 15:54] VITALS: BP 97/63; PULSE 62; TEMP 98.2; O2SAT 98
--- NOTE | 2018-06-22 17:46 | CP.PCM.PN ---
Subjective - Date & Time of Evaluation Date of Evaluation: 06/22/18 Time of Evaluation: 13:00 Objective - Vital Signs/Intake and Output Vital Signs (last 24 hours): Temp Pulse Resp BP Pulse Ox 98.2 F 62 20 97/63 L 98 06/22/18 15:20 06/22/18 15:20 06/22/18 15:20 06/22/18 15:20 06/22/18 15:20 Intake and Output: 06/22/18 06/22/18 06:59 18:59 Intake Total 120 200 Balance 120 200 - Medications Medications: Current Medications Acetaminophen (Tylenol 325mg Tab) 650 mg PO Q6 PRN PRN Reason: Pain, moderate (4-7) Last Admin: 06/21/18 19:30 Dose: 650 mg Aspirin (Aspirin Chewable) 81 mg PO DAILY [facility] Last Admin: 06/22/18 10:47 Dose: 81 mg Clopidogrel Bisulfate (Plavix) 75 mg PO DAILY [facility] Last Admin: 06/22/18 10:47 Dose: 75 mg Dextrose (Dextrose 50% Inj) 0 ml IV STAT PRN; Protocol PRN Reason: Hypoglycemia Protocol Dextrose (Glutose 15) 0 gm PO ONCE PRN; Protocol PRN Reason: Hypoglycemia Protocol Enoxaparin Sodium (Lovenox) 40 mg SC DAILY [facility] Last Admin: 06/22/18 10:48 Dose: 40 mg Famotidine (Pepcid) 20 mg PO DAILY [facility] Last Admin: 06/22/18 10:47 Dose: 20 mg Furosemide (Lasix) 40 mg PO DAILY [facility] Last Admin: 06/22/18 10:46 Dose: 40 mg Gabapentin (Neurontin) 300 mg PO BID [facility] Last Admin: 06/22/18 17:40 Dose: 300 mg Glucagon (Glucagen Diagnostic Kit) 0 mg IM STAT PRN; Protocol PRN Reason: Hypoglycemia Protocol Cefepime HCl 1 gm/ Sodium (Chloride) 100 mls @ 100 mls/hr IVPB Q12H [facility]; Protoc ol Last Admin: 06/22/18 10:52 Dose: 100 mls/hr Insulin Glargine (Lantus) 20 unit SC HS [facility] Last Admin: 06/21/18 21:47 Dose: 20 units Insulin Human Regular (Novolin R) 0 unit SC ACHS [facility]; Protocol Last Admin: 06/22/18 16:41 Dose: 4 units Loratadine (Claritin) 10 mg PO DAILY [facility] Last Admin: 06/22/18 10:48 Dose: 10 mg Meclizine HCl (Antivert) 12.5 mg PO BID PRN PRN Reason: Dizziness Metformin HCl (Glucophage) 1,000 mg PO BIDCC [facility] Last Admin: 06/22/18 17:40 Dose: 1,000 mg Metoprolol Succinate (Toprol Xl) 100 mg PO DAILY [facility] Last Admin: 06/22/18 10:47 Dose: 100 mg Nitroglycerin (Nitro-Bid 2% Oint) 1 ea TOP Q6 [facility] Last Admin: 06/22/18 05:59 Dose: Not Given Ranolazine (Ranexa) 1,000 mg PO BID [facility] Last Admin: 06/22/18 17:40 Dose: 1,000 mg Sitagliptin Phosphate (Januvia) 100 mg PO DAILY [facility] Last Admin: 06/22/18 10:48 Dose: 100 mg - Labs Labs: 06/17/18 11:26 06/20/18 13:36 PT 11.0 SECONDS (9.7-12.2) 06/14/18 04:53 INR 1.0 06/14/18 04:53 APTT 27 SECONDS (21-34) 06/14/18 04:53
== END 2018-06-22 18:15 | disposition home or self-care (01) | DRG 122 ==
LOC: C.ER 04:02 → C.6T 05:38 → C.9E 05:38 → UNDOADMIN 05:38
PROVIDERS: ADMIT Internal Medicine Nephrology; ATTEND Internal Medicine Nephrology
DX: I21.4 Non-ST elevation (NSTEMI) myocardial infarction (principal); E10.22 Type 1 diabetes mellitus with diabetic chronic kidney disease; E10.65 Type 1 diabetes mellitus with hyperglycemia; N18.9 Chronic kidney disease, unspecified; I12.9 Hypertensive chronic kidney disease with stage 1 through stage 4 chronic kidney disease, or unspecified chronic kidney disease; J45.909 Unspecified asthma, uncomplicated; I25.119 Atherosclerotic heart disease of native coronary artery with unspecified angina pectoris; G47.30 Sleep apnea, unspecified; E78.00 Pure hypercholesterolemia, unspecified; Z79.02 Long term (current) use of antithrombotics/antiplatelets; Z79.4 Long term (current) use of insulin; Z79.82 Long term (current) use of aspirin; Z86.73 Personal history of transient ischemic attack (TIA), and cerebral infarction without residual deficits; Z87.11 Personal history of peptic ulcer disease; Z90.49 Acquired absence of other specified parts of digestive tract; Z91.040 Latex allergy status; Z95.1 Presence of aortocoronary bypass graft; Z95.5 Presence of coronary angioplasty implant and graft

== ENCOUNTER 2018-08-18 10:53 | Emergency (ER) | payer MEDICAID ==
[2018-08-18 11:02] VITALS: BMI 42.9
[2018-08-18 11:05] VITALS: BP 103/68; PULSE 77; RESP 18; TEMP 97.9; O2SAT 95
[2018-08-18] MEDS ORDERED: PROPARACAINE/FLUORESCEIN SOD 100 DROP/5 ML BOTTLE OS STA (11:23)
--- NOTE | 2018-08-18 11:23 | C.PDOC ---
History Of Present Illness 52 y/o female,w/PMhx of diabetes, CAD (s/p CABG), HLD, TIA, and HTN, presents to the ER complaining of left eye redness and pain which has been present for the past 1.5 days. Awoke yesterday with symptoms. Associated photophobia. Patient reports that she had similar symptoms 1 year ago.At the time, she was prescribed Polymyxin eye drops with relief. She notes that she has been using left over Polymyxin eye drops without improvement since yesterday. Denies having fever, chills, visual changes, periorbital swelling or redness, FB sensation, headache, neck pain, cough, CP, SOB, nausea, vomiting, or any other associated symptoms. <Amanda New - Last Filed: 08/19/18 14:57> <Roz Jeffrey - Last Filed: 08/18/18 12:28> History Per: Patient History/Exam Limitations: no limitations Onset/Duration Of Symptoms: Days Current Symptoms Are (Timing): Still Present Severity: Moderate <Amanda New - Last Filed: 08/19/18 14:57> Time Seen by Provider: 08/18/18 11:06 Chief Complaint (Nursing): Eye Problem Past Medical History Vital Signs: Last Vital Signs Temp 97.9 F 08/18/18 11:02 Pulse 77 08/18/18 11:02 Resp 18 08/18/18 11:02 BP 103/68 08/18/18 11:02 Pulse Ox 95 08/18/18 11:23 - [facility] Procedures APPLICATION OF SPLINT (06/09/14) CORONAR ARTERIOGR-2 CATH (12/14/14) DILATION OF 1 COR ART WITH DRUG-ELUT INTRALUM, PERC APPROACH (05/26/15) DILATION OF CORONARY ARTERY, ONE SITE, PERCUTANEOUS APPROACH (03/04/16) FLUOROSCOPY OF LEFT HEART USING LOW OSMOLAR CONTRAST (05/26/15) FLUOROSCOPY OF SINGLE CORONARY ARTERY USING L OSM CONTRAST (05/26/15) INFLUENZA VACCINATION (05/08/14) INSERT OF MONITOR DEV INTO CHEST SUBCU/FASCIA, PERC APPROACH (04/07/18) LEFT HEART CARDIAC CATH (12/14/14) LT HEART ANGIOCARDIOGRAM (12/14/14) MEASURE OF CARDIAC SAMPL & PRESSURE, L HEART, PERC APPROACH (03/04/16) OTHER ENDOSCOPY OF SM INTEST (01/21/14) PLAIN RADIOGRAPHY OF LEFT HEART USING OTHER CONTRAST (03/04/16) PLAIN RADIOGRAPHY OF MULT COR ART USING OTH CONTRAST (03/04/16) TETANUS TOXOID ADMINIST (06/09/14) TRANSFUSE NONAUT RED BLOOD CELLS IN PERIPH VEIN, PERC (03/30/16) VACCINATION NEC (05/08/14) <Roz Jeffrey - Last Filed: 08/18/18 12:28> Reviewed: Historical Data, Nursing Documentation, Vital Signs Vital Signs: Last Vital Signs Temp 97.9 F 08/18/18 11:02 Pulse 77 08/18/18 11:02 Resp 18 08/18/18 11:02 BP 103/68 08/18/18 11:02 Pulse Ox 95 08/18/18 11:02 - Medical History PMH: Anxiety, Asthma, CAD, Cardia Arrhythmia, Depression, Diabetes, Gastritis, Gastrointestinal Ulcer, Gall Bladder Disease, HTN, Hypercholesterolemia, Peripheral Edema, Chronic Kidney Disease, Sleep Apnea, TIA Surgical History: CABG (september 2008 x4), Cholecystectomy, Coronary Stent (9 stents) - [facility] Procedures APPLICATION OF SPLINT (06/09/14) CORONAR ARTERIOGR-2 CATH (12/14/14) DILATION OF 1 COR ART WITH DRUG-ELUT INTRALUM, PERC APPROACH (05/26/15) DILATION OF CORONARY ARTERY, ONE SITE, PERCUTANEOUS APPROACH (03/04/16) FLUOROSCOPY OF LEFT HEART USING LOW OSMOLAR CONTRAST (05/26/15) FLUOROSCOPY OF SINGLE CORONARY ARTERY USING L OSM CONTRAST (05/26/15) INFLUENZA VACCINATION (05/08/14) INSERT OF MONITOR DEV INTO CHEST SUBCU/FASCIA, PERC APPROACH (04/07/18) LEFT HEART CARDIAC CATH (12/14/14) LT HEART ANGIOCARDIOGRAM (12/14/14) MEASURE OF CARDIAC SAMPL & PRESSURE, L HEART, PERC APPROACH (03/04/16) OTHER ENDOSCOPY OF SM INTEST (01/21/14) PLAIN RADIOGRAPHY OF LEFT HEART USING OTHER CONTRAST (03/04/16) PLAIN RADIOGRAPHY OF MULT COR ART USING OTH CONTRAST (03/04/16) TETANUS TOXOID ADMINIST (06/09/14) TRANSFUSE NONAUT RED BLOOD CELLS IN PERIPH VEIN, PERC (03/30/16) VACCINATION NEC (05/08/14) Family History: States: No Known Family Hx - Social History Hx Tobacco Use: No Hx Alcohol Use: No Hx Substance Use: No (Marijuana 10 years ago) - Immunization History Hx Tetanus Toxoid Vaccination: No Hx Influenza Vaccination: Yes (2016) Hx Pneumococcal Vaccination: Yes <Amanda New - Last Filed: 08/19/18 14:57> Review Of Systems Except As Marked, All Systems Reviewed And Found Negative. Constitutional: Negative for: Fever, Chills Eyes: Positive for: Pain (left eye pain), Redness (left eye redness). Negative for: Vision Change ENT: Negative for: Ear Pain, Nose Pain, Nose Congestion, Throat Pain Cardiovascular: Negative for: Chest Pain, Palpitations, Light Headedness Respiratory: Negative for: Cough, Shortness of Breath Gastrointestinal: Negative for: Nausea, Vomiting, Abdominal Pain, Diarrhea Musculoskeletal: Negative for: Neck Pain, Shoulder Pain, Back Pain Skin: Negative for: Rash, Bruising Neurological: Negative for: Weakness, Numbness, Headache, Dizziness <Amanda New - Last Filed: 08/19/18 14:57> Physical Exam - Physical Exam Appears: Non-toxic, No Acute Distress, Other (Appears uncomfortable, sunglasses on) Skin: Normal Color, Warm, Dry Head: Atraumatic, Normacephalic, No Tenderness, No Swelling Eye(s): bilateral: PERRL, EOMI, left: Other (generalized conjunctival erythema with pain; no hyphema or hypopyon; no proptosis, no periorbital edema, erythema, or warmth) Ear(s): Bilateral: Normal Nose: Normal Throat: Normal Neck: Normal, Normal ROM, Supple, No Other (no meningeal signs) Cardiovascular: Rhythm Regular Respiratory: Normal Breath Sounds Gastrointestinal/Abdominal: Soft, No Tenderness Back: No CVA Tenderness Extremity: Normal ROM, Capillary Refill (<2s) Pulses: Left Radial: Normal, Right Radial: Normal Neurological/Psych: Oriented x3, Normal Speech, Normal Cranial Nerves, Normal Motor, Normal Sensation Gait: Steady <Amanda New - Last Filed: 08/19/18 14:57> ED Course And Treatment O2 Sat by Pulse Oximetry: 95 (RA) Pulse Ox Interpretation: Normal <Amanda New - Last Filed: 08/19/18 14:57> Supervising Attending Note - Supervising Attending Note The Documented history was done by the: Physician Orthotics Technician The documented physical exam was done by the: Physician Orthotics Technician The documented procedures were done by the: Physician Orthotics Technician - Attestation: I have personally seen and examined this patient.: Yes I have fully participated in the care of the patient.: Yes I have reviewed all pertinent clinical information, including history, physical exam and plan: Yes - Notes: Notes:: L EYE REDNESS SINCE YESTERDAY. NO IMPROVE W POLYMIXIN D. +LIGHT SENSITIVITY L EYE ONLY. NO VISION CHANGE, EYELID SWELL. DENIES CONTACT LENS USE. PER [facility], CAN DC PT FROM ER AND REFER TO OFFICE FOR EVAL IMMEDIATELY. DC CILOXAN, MOTRIN, OPTHO <Roz Jeffrey - Last Filed: 08/18/18 12:28> Medical Decision Making Medical Decision Making: Impression: 52 y/o with PMH of CAD, HLD, DM with red, painful left eye without injury, fever, periorbital swelling/warmth, or visual change. PERRLA, EOMI. Initial Plan: * Fluoroscein Stain * Tonometry * Visual Acuity Visual acuity 20/40 bilaterally Tonometry R: 19, L: 15 Fluoroscein Stain reveals no uptake or other abnormal findings. No FB, corneal abrasion, or ulcer appreciated on exam. Patient evaluated at bedside by ED attending Dr. Jeffrey; see attending note. Recommends discharge with ibuprofen, ciprofloxacin eye drops and referral to ophtho 12:26 [facility]- 's office (ophtho chronometer tester) was contacted. They stated that will immediately evaluate patient in office after she is discharged from ER. Discussed plan with patient, who agrees and verbalizes understanding. States she will go directly to [facility] on discharge. Pt instructed to call [facility] ED if she has any difficulty, provided with contact information. Diagnostic testing results and plan of care discussed with patient. Strict instructions given regarding prescription use, importance of followup, and signs/symptoms to return to ER including vision changes, dizziness, headache, fever, periorbital redness or swelling, or any other new/worsening symptoms. Pt verbalized understanding of discussion. Patient is A&Ox3, ambulating with steady gait, with vital signs stable for discharge. <Amanda New - Last Filed: 08/19/18 14:57> Disposition <Roz Jeffrey - Last Filed: 08/18/18 12:28> - Disposition Disposition Time: 12:26 <Amanda New - Last Filed: 08/19/18 14:57> - Disposition Referrals: Suman Guerrier [Staff Provider] - Disposition: HOME/ ROUTINE Condition: STABLE Additional Instructions: GO DIRECTLY TO DR. 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 - Scribe Statement The provider has reviewed the documentation as recorded by the Scribe Sree Agosto Provider Attestation All medical record entries made by the Scribe were at my direction and personally dictated by me. I have reviewed the chart and agree that the record accurately reflects my personal performance of the history, physical exam, medical decision making, and the department course for this patient. I have also personally directed, reviewed, and agree with the discharge instructions and disposition. <Amanda New - Last Filed: 08/19/18 14:57>
[2018-08-18] MEDS ORDERED: Tetracaine 0.5% Ophth (OR ONLY) ONE (11:52)
[2018-08-18] MEDS ORDERED: Fluorescein 1 mg Ophthalmic Strip ONE (11:52)
== END 2018-08-18 12:36 | disposition home or self-care (01) ==
LOC: C.ER 10:53
DX: H44.002 Unspecified purulent endophthalmitis, left eye (principal)

== ENCOUNTER 2018-10-18 08:42 | Emergency (ER) | payer MEDICAID ==
[2018-10-18 09:08] VITALS: BMI 40.2
[2018-10-18] MEDS ORDERED: Naproxen 550 mg Tab PO STA (09:32)
[2018-10-18] MEDS ORDERED: Naproxen 550 mg Tab PO ONE (09:41)
--- NOTE | 2018-10-18 10:25 | RAD ---
Date of service: 10/18/2018 PROCEDURE: Left Knee Radiographs. HISTORY: Pain. COMPARISON: 03/14/2014 TECHNIQUE: 2 views obtained. FINDINGS: BONES: No fracture or lytic lesion. Tibial spine spurring. Trace medial tibial plateau knee joint line spurring. JOINTS: Arthrosis JOINT EFFUSION: Present OTHER FINDINGS: Medial soft tissue clips-probably relating to vascular intervention. Correlate clinically. Faint chondrocalcinosis inferred. IMPRESSION: No fracture or lytic lesion. Mild arthrosis osteoarthrosis inferred. Lateral femoral tibial compartment joint space narrowing relatively preserved. Medial-lateral chondrocalcinosis suspect. Other findings as above.
--- NOTE | 2018-10-18 10:57 | C.PDOC ---
History Of Present Illness 52-year-old female, with past medical history that includes CAD with CABG, hypertension, and depression, presents to the ED for evaluation of left knee pain which began two days ago. Patient states that her pain is worse with ambulation, and reports noting some swelling to the area. Otherwise, she denies fever, chills, rashes, shortness of breath, calf pain, falls/injury. Time Seen by Provider: 10/18/18 09:10 Chief Complaint (Nursing): Lower Extremity Problem/Injury History Per: Patient History/Exam Limitations: no limitations Onset/Duration Of Symptoms: Days (2) Current Symptoms Are (Timing): Still Present Additional History Per: Patient Past Medical History Reviewed: Historical Data, Nursing Documentation, Vital Signs Vital Signs: Last Vital Signs Temp 98.5 F 10/18/18 09:08 Pulse 71 10/18/18 09:08 Resp 17 10/18/18 09:08 BP 106/67 10/18/18 09:08 Pulse Ox 98 10/18/18 09:08 - Medical History PMH: Anxiety, Asthma, CAD, Cardia Arrhythmia, Depression, Diabetes, Gastritis, Gastrointestinal Ulcer, Gall Bladder Disease, HTN, Hypercholesterolemia, Peripheral Edema, Chronic Kidney Disease, Sleep Apnea, TIA Surgical History: CABG, Cholecystectomy, Coronary Stent - [facility] Procedures APPLICATION OF SPLINT (06/09/14) CORONAR ARTERIOGR-2 CATH (12/14/14) DILATION OF 1 COR ART WITH DRUG-ELUT INTRALUM, PERC APPROACH (05/26/15) DILATION OF CORONARY ARTERY, ONE SITE, PERCUTANEOUS APPROACH (03/04/16) FLUOROSCOPY OF LEFT HEART USING LOW OSMOLAR CONTRAST (05/26/15) FLUOROSCOPY OF SINGLE CORONARY ARTERY USING L OSM CONTRAST (05/26/15) INFLUENZA VACCINATION (05/08/14) INSERT OF MONITOR DEV INTO CHEST SUBCU/FASCIA, PERC APPROACH (04/07/18) LEFT HEART CARDIAC CATH (12/14/14) LT HEART ANGIOCARDIOGRAM (12/14/14) MEASURE OF CARDIAC SAMPL & PRESSURE, L HEART, PERC APPROACH (03/04/16) OTHER ENDOSCOPY OF SM INTEST (01/21/14) PLAIN RADIOGRAPHY OF LEFT HEART USING OTHER CONTRAST (03/04/16) PLAIN RADIOGRAPHY OF MULT COR ART USING OTH CONTRAST (03/04/16) TETANUS TOXOID ADMINIST (06/09/14) TRANSFUSE NONAUT RED BLOOD CELLS IN PERIPH VEIN, PERC (03/30/16) VACCINATION NEC (05/08/14) Family History: States: No Known Family Hx - Social History Hx Tobacco Use: No Hx Alcohol Use: No Hx Substance Use: No (Marijuana 10 years ago) - Immunization History Hx Tetanus Toxoid Vaccination: No Hx Influenza Vaccination: Yes Hx Pneumococcal Vaccination: Yes Review Of Systems Constitutional: Negative for: Fever, Chills Cardiovascular: Negative for: Chest Pain, Palpitations Respiratory: Negative for: Shortness of Breath Musculoskeletal: Positive for: Other (left knee pain ). Negative for: Leg Pain Neurological: Negative for: Weakness, Numbness Physical Exam - Physical Exam Appears: Well, Non-toxic, Other (in mild pain ) Skin: Normal Color, Warm, Dry, No Rash, Other (well-healed scar to left medial calf ) Head: Normacephalic Oral Mucosa: Moist Neck: Supple Cardiovascular: Rhythm Regular, No Murmur Respiratory: Normal Breath Sounds, No Rales, No Rhonchi, No Wheezing Extremity: Normal ROM, No Calf Tenderness, Capillary Refill (< 2 sec all digits ), No Deformity, Swelling (mild, at medial aspect of left knee ), No Other (masses to popliteal area ) Extremity: Bilateral: Normal Color And Temperature Pulses: Left Dorsalis Pedis: Normal, Right Dorsalis Pedis: Normal Neurological/Psych: Oriented x3, Normal Sensation ED Course And Treatment O2 Sat by Pulse Oximetry: 98 (on RA) Pulse Ox Interpretation: Normal - Other Rad Left knee XR X-Ray: Viewed By Me, Read By Radiologist Interpretation: Date of service: 10/18/2018. PROCEDURE: Left Knee Radiographs. HISTORY: Pain. COMPARISON: 03/14/2014. TECHNIQUE: 2 views obtained. FINDINGS: BONES: No fracture or lytic lesion. Tibial spine spurring. Trace medial tibial plateau knee joint line spurring. JOINTS: Arthrosis. JOINT EFFUSION: Present. OTHER FINDINGS: Medial soft tissue clips-probably relating to vascular intervention. Correlate clinically. Faint chondrocalcinosis inferred. IMPRESSION: No fracture or lytic lesion. Mild arthrosis osteoarthrosis inferred. Lateral femoral tibial compartment joint space narrowing relatively preserved. Medial-lateral chondrocalcinosis suspect. Other findings as above. Progress Note: Xrays of left knee ordered and reviewed. Patient given PO Naprosyn. Ronald wrap applied to left knee by orthopedic tech. Crutches and instruction given to patient by PT. Xrays neg for fx/dislocation/bony injury. Patient instructed to follow up with orthopedics within 1 week. She understands she should return to ED if symptoms worsen. Disposition Counseled Patient/Family Regarding: Studies Performed, Diagnosis, Need For Followup, Rx Given - Disposition Referrals: Gale Cardona MD [Staff Provider] - Disposition: HOME/ ROUTINE Disposition Time: 11:00 Condition: STABLE Additional Instructions: FOLLOW UP WITH ORTHOPEDICS WITHIN 1 WEEK USE MEDICATION NEEDED FOR PAIN RETURN TO ER IF SYMPTOMS WORSEN Prescriptions: Naproxen 375 mg PO BID PRN #20 tablet PRN Reason: pain Instructions: Knee Sprain (DC) Forms: [employer] (Armenian) Print Language: SAUDI ARABIAN - Clinical Impression Clinical Impression: Left knee sprain - Scribe Statement The provider has reviewed the documentation as recorded by the Scribe (sp) Provider Attestation: All medical record entries made by the Scribe were at my direction and person ally dictated by me. I have reviewed the chart and agree that the record accurately reflects my personal performance of the history, physical exam, medical decision making, and the department course for this patient. I have also personally directed, reviewed, and agree with the discharge instructions and disposition.
[2018-10-18 11:25] VITALS: BP 141/76; PULSE 74; RESP 18; TEMP 98.1
[2018-10-19 01:13] VITALS: O2SAT 98
== END 2018-10-18 11:05 | disposition home or self-care (01) ==
LOC: C.ER 08:42
DX: S83.92XA Sprain of unspecified site of left knee, initial encounter (principal); X58.XXXA Exposure to other specified factors, initial encounter; E78.00 Pure hypercholesterolemia, unspecified; I12.9 Hypertensive chronic kidney disease with stage 1 through stage 4 chronic kidney disease, or unspecified chronic kidney disease; N18.9 Chronic kidney disease, unspecified; I25.10 Atherosclerotic heart disease of native coronary artery without angina pectoris; Z95.1 Presence of aortocoronary bypass graft; Z86.73 Personal history of transient ischemic attack (TIA), and cerebral infarction without residual deficits
CPT/HCPCS: 73562; 97116; 97161; 99284; G8978; G8979; G8980